=== PATIENT | female | born 1945 | race Caucasian/White ===

== ENCOUNTER 2019-04-09 08:59 | Outpatient (CLI) | payer MEDICARE, MEDICAID, SELFPAY ==
--- NOTE | 2019-04-09 09:07 | USCV_ITS ---
Ayah Sanchez Age: 73 Gender: F : 1945 Exam Date: 04/09/2019 09:13 Ordering Phys: Ilan Whitaker MD (Andy) ([email or web address] [place]) Technologist: Staci Scanlon [place] [facility] [place]: CCA STENOSIS Risk Factors: None Previous Vascular Surgery: R CEA Right Brachial BP: / Left Brachial BP: / Right Left Velocity (cm/s) Spectral Plaque Velocity (cm/s) Spectral Plaque Syst/Diast Broadening Syst/Diast Broadening 60.60/ 12.10 Prox CCA 54.50 / 9.60 67.30/ 13.20 Mid CCA 73.70 / 17.60 89.30/ 12.10 Distal CCA 133.60/ 27.80 Hetro 66.20/ 15.40 Prox ICA 198.90/ 27.70 Hetro 93.70/ 17.60 Mid ICA 160.20/ 20.30 Homo 71.20/ 20.90 Distal ICA 92.20 / 19.60 105.80 ECA 100.20 1.05 ICA/CCA 1.49 Antegrade Vertebral Bi- directiona l 55.90/ 16.80 cm/s 58.70/ 18.20 cm/s Bi Subclavian Tri 98.50 198.4 0 FINDINGS Atherosclerotic change of the left internal carotid artery. CONCLUSIONS 60-69% stenosis of the origin of the left internal carotid artery. No significant stenoisis of the right internal carotid artery. No siginificatnt change compared to previous study of 10/04/2018. Dr. Krissy Noguera MD (Electronically Signed) Final Date: 09 April 2019 10:52 S
== END 2019-04-09 09:00 | disposition home or self-care (01) ==
LOC: US 09:02
PROVIDERS: PCP Family Medicine; Visit Provider Thoracic Surgery (Cardiothoracic Vascular Surgery)
DX: I65.23 Occlusion and stenosis of bilateral carotid arteries (principal)
CPT/HCPCS: 93880

== ENCOUNTER 2020-06-23 17:21 | Emergency (ER) | payer MEDICARE, MEDICAID, SELFPAY ==
[2020-06-23 18:16] VITALS: BP 208/72; PULSE 73; RESP 18; TEMP 37.9; O2SAT 93; BMI 28.0
[2020-06-23 19:24] VITALS: BP 214/94; PULSE 74; RESP 16; O2SAT 92
[2020-06-23 19:49] LABS: Basophils # 0.1 10^3/uL (0.0-0.1); Basophils % 0.3 %; Eosinophils % 0.1 %; Hematocrit 42.6 % (37.0-47.0); Hemoglobin 13.9 g/dL (11.5-15.3); Lymphocytes # 1.2 10^3/uL (0.8-4.8); Lymphocytes % 8.2 %; Mean Corpuscular HGB Conc 32.6 g/dL (30.0-36.0); Mean Corpuscular Hemoglobin 30.6 pg (28.0-34.0); Mean Corpuscular Volume 93.8 fL (81-99); Mean Platelet Volume 10.5 fL (7.4-10.4); Monocytes # 1.5 10^3/uL (0.2-0.9); Monocytes % 9.8 %; Neutrophils # 12.11 10^3/uL (1.8-7.7); Neutrophils % 81.1 %; Nucleated Red Blood Cells % 0 %; Platelet Count 278 10^3/cmm (130-400); Red Blood Count 4.54 10^6/uL (4.1-5.3); Red Cell Distribution Width 13.1 % (12.1-15.1); White Blood Count 14.9 10^3/uL (4.0-10.0)
--- NOTE | 2020-06-23 19:49 | W.ED.ABDPA2 ---
HPI - Abdominal Pain General: Chief Complaint: Abdominal Pain Stated Complaint: AB PAIN Time Seen by Provider: 06/23/20 19:36 Source: patient Mode of arrival: ambulatory Limitations: no limitations History of Present Illness: HPI narrative: Patient is a 74-year-old female who presents to ED today with a complaint of pain around her right flank area that began around 7:30am this morning and woke her from sleep. She states she is concerned this could be a kidney stone or her gallbladder. She reports she feels mildly nauseous but has not had any episodes of vomiting. She is having normal bowel movements. She does not complain of dysuria, frequency, urgency. She does states she urinates in very small amounts but this is chronic. She has not been running fevers. She has no previous history of nephrolithiasis. Has not had any issues with her gallbladder previously. She denies chest pain, shortness of breath, difficulty breathing. MD elicited complaint: flank pain Pertinent past history: none Onset (ago): hour(s) Pain Consistency: constant Location: R flank Severity: severe Quality: stabbing and sharp Exacerbating factors: movement Relieving factors: nothing Associated Symptoms: Reports nausea; Denies change in stool character, chills, dysuria, fever(s), heartburn, hematuria, hematemesis, syncope and vomiting Review of Systems Const: Denies: fever(s), chills, body aches, fatigue or malaise Card: Denies: chest pain, palpitations, irregular heart rhythm, edema, lightheadedness, syncope or pre-syncope Resp: Denies: dyspnea GI: Reports: abdominal pain and nausea; Denies: vomiting, hematemesis, heartburn or change in stool character : Reports: flank pain; Denies: difficulty voiding, dysuria, urinary urgency or hematuria Neuro: Denies: headache(s) PFSH ED PFSH: Medical History Hyperlipidemia associated with type 2 diabetes mellitus Ventricular hypertrophy Family History Other Cancer Denies family history of Anesthesia complication Bleeding disorder Social History Smoking and tobacco status: current every day smoker Alcohol intake: never Physical Exam Const: COMMON NORMALS: average body habitus, patient oriented x3, no limitations, healthy appearing and alert GENERAL APPEARANCE: cooperative and in distress (in pain) ORIENTATION/CONSCIOUSNESS: Yes awake, Yes oriented to person, Yes oriented to place and Yes oriented to time HENMT: COMMON NORMALS: normocephalic and atraumatic HEAD & SCALP: normocephalic and atraumatic Resp: COMMON NORMALS: normal respiratory effort and clear to auscultation bilaterally AUSCULTATION: clear to auscultation bilaterally Cardio: COMMON NORMALS: regular rate and regular rhythm RATE: regular rate RHYTHM: regular rhythm GI: COMMON NORMALS: Normal to inspection, nondistended, normoactive bowel sounds present, Soft to palpation, non-tender and No hepatosplenomegaly present AUSCULTATION: Yes normoactive bowel sounds PALPATION: Yes Soft to palpation and Yes No hepatosplenomegaly present OTHER: pain pump present : BLADDER/KIDNEY EXAM: Yes CVA tenderness on the right Back/Pelvis: GENERAL BACK: Yes CVA tenderness Extremity: COMMON NORMALS: normal to inspection Neuro: COMMON NORMALS: patient oriented x3 SENSORIUM/ORIENTATION: Yes alert, Yes oriented to person, Yes oriented to place and Yes oriented to time Skin: COMMON NORMALS: no rashes or lesions noted GENERAL SKIN EXAM: no rashes or lesions noted Course ED course: Patient noted to desat to the 70-80s during her visit. She does not wear oxygen. 3-4L O2 via NC was placed and still could only get sats to 91%. Have tried to wean patient off this but again she desats. She does now tell me pain radiates from flank down to R lower chest. She has no localized RUQ pain. CXR shows some haziness to her RLL. CTA imaging does not show a PE and nothing obvious to R lung/chest although does have some atelectasis. She has non-specific findings of an enlarged pulmonary trunk, thickened left ventricle, and small descending thoracic aneurysmal dilatation. She states she does not feel short of breath. Vital Signs: Vital signs: Vital Signs Temperature 100.2 F H 06/23/20 18:16 Pulse Rate 65 06/23/20 23:33 Respiratory Rate 18 06/23/20 23:33 Blood Pressure 158/65 06/23/20 23:33 Pulse Oximetry 89 L 06/23/20 23:33 MDM - Abdominal Pain MDM Narrative: Medical decision making narrative: Patient is satting at 85-89% on room air. I have encouraged patient to come into the hospital for further evaluation of her pain and hypoxia but she refuses. She feels much better after toradol and dilaudid. CT of her abd/pelvis showed nothing acute. When I looked at CT scan I thought her R renal pelvis looked dilated but I agree with radiologist in that I did not visualize a stone. No hydroneprosis. UA shows hematuria without infection. She has a mild white count at 14.9 but procal and lactate are normal. Triage temp was 100.2 but this was rechecked and she was afebrile at 98.6. I will place patient on Levaquin which will cover for pulmonary/urologic pathogens as well as give her pain/nausea meds. She will sign out AMA as I have encouraged her to come into the hospital. Strict return to ED precautions given. Lab Data: Labs: Lab Results 06/23/20 06/23/20 06/23/20 Range/Units 19:30 19:45 19:45 WBC 14.9 H (4.0-10.0) 10^3/ uL RBC 4.54 (4.1-5.3) 10^6/u L Hgb 13.9 (11.5-15.3) g/dL Hct 42.6 (37.0-47.0) % MCV 93.8 (81-99) fL MCH 30.6 (28.0-34.0) pg MCHC 32.6 (30.0-36.0) g/dL RDW 13.1 (12.1-15.1) % Plt Count 278 (130-400) 10^3/c mm MPV 10.5 H (7.4-10.4) fL Neut % (Auto) 81.1 % Lymph % (Auto) 8.2 % Marinette % (Auto) 9.8 % Eos % (Auto) 0.1 % Baso % (Auto) 0.3 % Neut # (Auto) 12.11 H (1.8-7.7) 10^3/u L Lymph # (Auto) 1.2 (0.8-4.8) 10^3/u L Marinette # (Auto) 1.5 H (0.2-0.9) 10^3/u L Eos # (Auto) 0.0 (0.0-0.8) 10^3/u L Baso # (Auto) 0.1 (0.0-0.1) 10^3/u L Nucleated RBC % (a uto) 0 % Nucleated RBCs # 0.0 /100WBC Sodium 135 L (136-145) mmol/L Potassium 3.8 (3.5-5.1) mmol/L Chloride 98 (98-107) mmol/L Carbon Dioxide 27 (22-29) mmol/L Anion Gap 13.8 (5-19) BUN 9 (8-23) mg/dL Creatinine 0.7 (0.5-0.9) mg/dL GFR Calculation Not Reportable Glucose 118 H (65-115) mg/dL Calculated Osmolal ity 280 L (285-295) mOsm/k g Lactic Acid (0.5-2.2) mmol/L Calcium 9.4 (8.5-10.5) mg/dL Total Bilirubin 1.0 (0.15-1.2) mg/dL AST 10 (0-32) U/L ALT < 5 (0-33) U/L Alkaline Phosphata se 104 (35-105) IU/L Total Protein 7.1 (6.6-8.7) g/dL Albumin 4.0 (3.5-5.2) g/dL Globulin 3.1 (1.3-4.6) g/dL Lipase 13 (13-60) U/L Procalcitonin (0-0.5) ng/mL Urine Color Yellow (Yellow) Urine Appearance Clear (CLEAR) Urine pH 7 (5-7) Ur Specific Gravit y 1.005 (1.005-1.030) Urine Protein Neg (Negative) Urine Glucose (UA) Norm (Normal) Urine Ketones Negative (Negative) Urine Blood 2+ H (Negative) Urine Nitrate Negative (Negative) Urine Bilirubin Neg (Negative) Urine Urobilinogen Norm (Negative) mg/dL Ur Leukocyte Paty ase Negative (Negative) Urine RBC 10-15 H (0-2) /hpf Urine WBC None (0-5) /hpf Ur Squamous Epith Cells 0-4 H (0-5) /hpf Amorphous Sediment Not Reportable Urine Bacteria None (NONE) /hpf SARS-CoV-2 Ag (Rap id) (Negative) 06/23/20 06/23/20 06/23/20 Range/Units 19:45 19:45 22:01 WBC (4.0-10.0) 10^3/ uL RBC (4.1-5.3) 10^6/u L Hgb (11.5-15.3) g/dL Hct (37.0-47.0) % MCV (81-99) fL MCH (28.0-34.0) pg MCHC (30.0-36.0) g/dL RDW (12.1-15.1) % Plt Count (130-400) 10^3/c mm MPV (7.4-10.4) fL Neut % (Auto) % Lymph % (Auto) % Marinette % (Auto) % Eos % (Auto) % Baso % (Auto) % Neut # (Auto) (1.8-7.7) 10^3/u L Lymph # (Auto) (0.8-4.8) 10^3/u L Marinette # (Auto) (0.2-0.9) 10^3/u L Eos # (Auto) (0.0-0.8) 10^3/u L Baso # (Auto) (0.0-0.1) 10^3/u L Nucleated RBC % (a uto) % Nucleated RBCs # /100WBC Sodium (136-145) mmol/L Potassium (3.5-5.1) mmol/L Chloride (98-107) mmol/L Carbon Dioxide (22-29) mmol/L Anion Gap (5-19) BUN (8-23) mg/dL Creatinine (0.5-0.9) mg/dL GFR Calculation Glucose (65-115) mg/dL Calculated Osmolal ity (285-295) mOsm/k g Lactic Acid 1.1 (0.5-2.2) mmol/L Calcium (8.5-10.5) mg/dL Total Bilirubin (0.15-1.2) mg/dL AST (0-32) U/L ALT (0-33) U/L Alkaline Phosphata se (35-105) IU/L Total Protein (6.6-8.7) g/dL Albumin (3.5-5.2) g/dL Globulin (1.3-4.6) g/dL Lipase (13-60) U/L Procalcitonin 0.10 (0-0.5) ng/mL Urine Color (Yellow) Urine Appearance (CLEAR) Urine pH (5-7) Ur Specific Gravit y (1.005-1.030) Urine Protein (Negative) Urine Glucose (UA) (Normal) Urine Ketones (Negative) Urine Blood (Negative) Urine Nitrate (Negative) Urine Bilirubin (Negative) Urine Urobilinogen (Negative) mg/dL Ur Leukocyte Paty ase (Negative) Urine RBC (0-2) /hpf Urine WBC (0-5) /hpf Ur Squamous Epith Cells (0-5) /hpf Amorphous Sediment Urine Bacteria (NONE) /hpf SARS-CoV-2 Ag (Rap id) Negative (Negative) Imaging Data ^: CT Abd/Pel: Radiologist's impression: [place] [address] CT Scan Report Signed Patient: Ayah Sanchez Unit #: [id number] : 1945 Age/Sex: 74 / F ADM Date: 06/23/20 Loc: ER Room/Bed: Attending Dr: Ordering Provider/Ordering MD: Yuli Morrow Date of Service: 06/23/20 Procedure(s): CT kidney stone 45412 Accession Number(s): [id number] Report Number: [id number] PROCEDURE INFORMATION: Exam: CT Abdomen And Pelvis Without Contrast Exam date and time: 06/23/2020 8:13 PM Age: 74 years old Clinical indication: Abdominal pain; Right; Prior surgery; Surgery type: Pain pump, appy, hyst; Patient HX: R flank pain, nausea, diarrhea TECHNIQUE: Imaging protocol: Computed tomography of the abdomen and pelvis without contrast. Radiation optimization: All CT scans at this facility use at least one of these dose optimization techniques: automated exposure control; mA and/or kV adjustment per patient size (includes targeted exams where dose is matched to clinical indication); or iterative reconstruction. COMPARISON: CT abdomen pelvis wo con [id number] 08/25/2016 10:14 AM RADIATION DOSE METRICS: Total DLP (mGy-cm): 854.41 FINDINGS: Lungs: Bibasilar atelectasis, greater on the right. Liver: Normal size and density. No focal mass. Gallbladder and bile ducts: No intrahepatic or extrahepatic biliary dilitation. No calcified stones. Pancreas: No evidence of mass. No ductal dilation. Spleen: No splenomegaly or mass. Adrenal glands: Normal. Kidneys and ureters: No stones or hydronephrosis. No evidence of focal mass. Stomach and bowel: Scattered diverticula throughout the colon. No signs of acute diverticulitis. No focal bowel wall thickening or mass. No signs of obstruction. Appendix: No evidence of appendicitis. Intraperitoneal space: No free air. No free fluid or evidence of abscess. Vasculature: The descending thoracic aorta measures up to 3.3 cm at the hiatus. Scattered calcifications throughout the abdominal aorta and its major branches. Lymph nodes: No lymphadenopathy. Urinary bladder: Normal CT appearance. Reproductive: Normal CT appearance for age. Bones/joints: The bones appear demineralized. No acute osseous abnormality. Epidural catheter noted. Soft tissues: Small fat containing inguinal hernias. CT/CT kidney stone [id number] IMPRESSION: 1. No urinary tract stones. No hydronephrosis or hydroureter. 2. Bibasilar atelectasis, greater on the right. 3. Scattered diverticulosis without signs of acute diverticulitis. 4. Slight interval enlargement of the diameter of the distal descending thoracic aorta now measuring 3.3 cm compared to 2.[address] abdomen pelvis. Radiation Dose CTDIVOL = (mGy): DLP = 854.41 (mGy-cm) Dictated By: Fitz Gipson Signed By: Fitz Gipson Signed Date/Time: 06/23/202101 DD/ 00 CTA Chest: Radiologist's impression: [facility] [address] [place] [address] CT Scan Report Signed Patient: Ayah Sanchez Unit #: [id number] : 1945 Age/Sex: 74 / F ADM Date: 06/23/20 Loc: ER Room/Bed: Attending Dr: Ordering Provider/Ordering MD: Yuli Morrow Date of Service: 06/23/20 Procedure(s): CT angio chest PE protcl [id number] Accession Number(s): [id number] Report Number: [id number] PROCEDURE INFORMATION: Exam: CTA Chest With Contrast Exam date and time: 06/23/2020 10:01 PM Age: 74 years old Clinical indication: Angina and shortness of breath; Additional info: R sided pain; Hypoxia TECHNIQUE: Imaging protocol: Computed tomographic angiography of the chest with contrast. 3D rendering (Not supervised by radiologist): MIP and/or 3D reconstructed images were created by the technologist. Radiation optimization: All CT scans at this facility use at least one of these dose optimization techniques: automated exposure control; mA and/or kV adjustment per patient size (includes targeted exams where dose is matched to clinical indication); or iterative reconstruction. Contrast material: OMNI 350; Contrast volume: 56 ml; Contrast route: INTRAVENOUS (IV); COMPARISON: CT chest wo [facility] [id number] 09/21/2016 2:27 PM RADIATION DOSE METRICS: Total DLP (mGy-cm): 463.15 FINDINGS: Pulmonary arteries: No filling defects in the pulmonary arteries. The pulmonary trunk is enlarged at 3.6 cm. Aorta: Scattered hard and soft plaque throughout the thoracic aorta. The distal descending thoracic aorta is slightly aneurysmal at 3.3 cm in diameter. Lungs: Adjacent to the mid descending thoracic aorta in the left lower lobe is a low-density 2.7 x 2.2 x 2 cm (SAT) low-density nodule with some peripheral vascularity. This shows slight interval enlargement compared to the exam of 2017. Given its minimal change coordinator time this is likely a benign finding and may reflect a noncalcified granuloma. Mild bibasilar atelectasis, greater on the right. Pleural spaces: Small right pleural effusion. Heart: The left ventricle appears thickened. No evidence of right heart strain. Trace pericardial effusion. Several coronary artery calcifications noted. Lymph nodes: No enlarged lymph nodes. Bones/joints: No acute fracture. Soft tissues: Within normal limits. CT/CT angio chest PE protcl [id number] IMPRESSION: 1. No pulmonary embolus. 2. Nonspecific enlargement of the pulmonary trunk. 3. The left ventricle appears diffusely thickened. Consider follow-up with echocardiogram. 4. 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 5. Mild bibasilar atelectasis, greater on the right. Small right pleural effusion. Radiation Dose CTDIVOL = (mGy): DLP = 463.15 (mGy-cm) Dictated By: Fitz Gipson Signed By: Fitz Gipson Signed Date/Time: 06/23/202248 DD/ 46 Discharge Plan Discharge Patient Disposition: Left Against Medical Advice Clinical Impression: Acute right flank pain, Hypoxia Condition: Stable Prescriptions: New hydrocodone-acetaminophen 5-325 mg tablet 1 tab PO Q4H PRN (Reason: pain) Qty: 14 RF: 0 Zofran 4 mg tablet 4 mg PO Q6H PRN (Reason: nausea and vomiting) Qty: 14 RF: 0 levofloxacin 500 mg tablet 500 mg PO DAILY 7 Days Qty: 7 RF: 0 No Action benazepril-hydrochlorothiazide 5-6.25 mg tablet 1 tab PO DAILY RF: 0 morphine IV RF: 0 pravastatin 80 mg tablet 80 mg PO DAILY PRNRF: 0 Referrals: Steven Barrera MD [Primary Care Provider] - Patient Instructions: Abdominal Pain (ED), Opioid Safety Activity Restrictions/Additional Instructions: [facility] epidemic. We are providing ALL patients with information regarding opiate safety. If you received opiate pain medication during your stay or if you received a prescription for opiate pain medication-please review this handout. If not, you may disregard. Thank you. As discussed because of your oxygen saturation readings in the 80s I have requested that you stay in the hospital for further evaluation but you have refused and would like to go home. I will place you on antibiotics, pain meds, nausea meds. Please follow-up with primary care as soon as possible. If you begin developing shortness of breath or chest pain or worsening flank pain, fevers, or any other concerns you may have please return to the emergency department immediately. Coding Level of Care Code ED Attorney for Veronica Perkins Exam Comprehensive
[2020-06-23 20:00] LABS: Add Urine Microscopic? YES; Bilirubin Urine Neg (Negative); Blood Urine 2+ (Negative); Glucose Urine UA Norm (Normal); Ketones Urine Negative (Negative); Leukocyte Esterase Urine Negative (Negative); Nitrate Urine Negative (Negative); Protein Urine Neg (Negative); Specific Gravity, Urine 1.005 (1.005-1.030); Urine Appearance Clear (CLEAR); Urine Color Yellow (Yellow); Urobilinogen Urine Norm (Negative); pH Urine 7 (5-7)
[2020-06-23 20:01] LABS: Add Urine Culture? No; Squamous Epithelial Cell Urine 0-4 /hpf (0-5)
--- NOTE | 2020-06-23 20:03 | CTR_ITS ---
PROCEDURE INFORMATION: Exam: CT Abdomen And Pelvis Without Contrast Exam date and time: 06/23/2020 8:13 PM Age: 74 years old Clinical indication: Abdominal pain; Right; Prior surgery; Surgery type: Pain pump, appy, hyst; Patient HX: R flank pain, nausea, diarrhea TECHNIQUE: Imaging protocol: Computed tomography of the abdomen and pelvis without contrast. Radiation optimization: All CT scans at this facility use at least one of these dose optimization techniques: automated exposure control; mA and/or kV adjustment per patient size (includes targeted exams where dose is matched to clinical indication); or iterative reconstruction. COMPARISON: CT abdomen pelvis wo con [id number] 08/25/2016 10:14 AM RADIATION DOSE METRICS: Total DLP (mGy-cm): 854.41 FINDINGS: Lungs: Bibasilar atelectasis, greater on the right. Liver: Normal size and density. No focal mass. Gallbladder and bile ducts: No intrahepatic or extrahepatic biliary dilitation. No calcified stones. Pancreas: No evidence of mass. No ductal dilation. Spleen: No splenomegaly or mass. Adrenal glands: Normal. Kidneys and ureters: No stones or hydronephrosis. No evidence of focal mass. Stomach and bowel: Scattered diverticula throughout the colon. No signs of acute diverticulitis. No focal bowel wall thickening or mass. No signs of obstruction. Appendix: No evidence of appendicitis. Intraperitoneal space: No free air. No free fluid or evidence of abscess. Vasculature: The descending thoracic aorta measures up to 3.3 cm at the hiatus. Scattered calcifications throughout the abdominal aorta and its major branches. Lymph nodes: No lymphadenopathy. Urinary bladder: Normal CT appearance. Reproductive: Normal CT appearance for age. Bones/joints: The bones appear demineralized. No acute osseous abnormality. Epidural catheter noted. Soft tissues: Small fat containing inguinal hernias. CT/CT kidney stone [id number] IMPRESSION: 1. No urinary tract stones. No hydronephrosis or hydroureter. 2. Bibasilar atelectasis, greater on the right. 3. Scattered diverticulosis without signs of acute diverticulitis. 4. Slight interval enlargement of the diameter of the distal descending thoracic aorta now measuring 3.3 cm compared to 2.9 cm [address] abdomen pelvis. Radiation Dose CTDIVOL = (mGy): DLP = 854.41 (mGy-cm)
[2020-06-23] MEDS: ondansetron 2 mg/ML SDV 2 mL 4 MG IVP (20:04)
[2020-06-23] MEDS: sodium chloride 0.9% 1,000 ML 999 ML IV (20:04)
[2020-06-23 20:05] LABS: Alanine Aminotransferase < 5 U/L (0-33); Alkaline Phosphatase 104 IU/L (35-105); Anion Gap 13.8 (5-19); Aspartate Amino Transferase 10 U/L (0-32); Blood Urea Nitrogen 9 mg/dL (8-23); Calcium 9.4 mg/dL (8.5-10.5); Carbon Dioxide 27 mmol/L (22-29); Chloride 98 mmol/L (98-107); Globulin 3.1 g/dL (1.3-4.6); Glucose 118 mg/dL (65-115); Lipase 13 U/L (13-60); Osmolality Calculated 280 mOsm/kg (285-295); Potassium 3.8 mmol/L (3.5-5.1); Sodium 135 mmol/L (136-145); Total Protein 7.1 g/dL (6.6-8.7)
[2020-06-23 20:06] LABS: Lactic Sepsis W/Reflex 1.1 mmol/L (0.5-2.2)
--- NOTE | 2020-06-23 21:19 | XR_ITS ---
WS: [id number] Portable AP upright chest, 06/23/2020 Clinical Data: chest pain Comparison: PA and lateral chest, 12/25/2017. Findings: No nodules, masses or effusions are seen. The heart is enlarged. The pulmonary vascularity is not increased. No pneumonia or pneumothorax is seen. There is atelectatic foreign exchange trader the surface of both diaphragms with a poor inspiration. The aortic arch and descending aorta show tortuosity. XR/XR chest 1V portable [id number] Impression: Cardiomegaly, atherosclerosis and bilateral lower lobe atelectasis.
[2020-06-23] MEDS: ketorolac 30 mg/mL INJ 15 MG IVP (21:46)
[2020-06-23 21:47] VITALS: BP 188/79; RESP 16; RESP 19; O2SAT 94
[2020-06-23] MEDS: HYDROmorphone 1 mg/mL INJ 1 mL 0.5 MG IVP (21:47)
[2020-06-23 21:48] VITALS: BP 188/79; PULSE 72; RESP 19; O2SAT 94
--- NOTE | 2020-06-23 21:57 | CTR_ITS ---
PROCEDURE INFORMATION: Exam: CTA Chest With Contrast Exam date and time: 06/23/2020 10:01 PM Age: 74 years old Clinical indication: Angina and shortness of breath; Additional info: R sided pain; Hypoxia TECHNIQUE: Imaging protocol: Computed tomographic angiography of the chest with contrast. 3D rendering (Not supervised by radiologist): MIP and/or 3D reconstructed images were created by the technologist. Radiation optimization: All CT scans at this facility use at least one of these dose optimization techniques: automated exposure control; mA and/or kV adjustment per patient size (includes targeted exams where dose is matched to clinical indication); or iterative reconstruction. Contrast material: OMNI 350; Contrast volume: 56 ml; Contrast route: INTRAVENOUS (IV); COMPARISON: CT chest wo con [id number] 09/21/2016 2:27 PM RADIATION DOSE METRICS: Total DLP (mGy-cm): 463.15 FINDINGS: Pulmonary arteries: No filling defects in the pulmonary arteries. The pulmonary trunk is enlarged at 3.6 cm. Aorta: Scattered hard and soft plaque throughout the thoracic aorta. The distal descending thoracic aorta is slightly aneurysmal at 3.3 cm in diameter. Lungs: Adjacent to the mid descending thoracic aorta in the left lower lobe is a low-density 2.7 x 2.2 x 2 cm (SAT) low-density nodule with some peripheral vascularity. This shows slight interval enlargement compared to the exam of 2017. Given its minimal pattern changer time this is likely a benign finding and may reflect a noncalcified granuloma. Mild bibasilar atelectasis, greater on the right. Pleural spaces: Small right pleural effusion. Heart: The left ventricle appears thickened. No evidence of right heart strain. Trace pericardial effusion. Several coronary artery calcifications noted. Lymph nodes: No enlarged lymph nodes. Bones/joints: No acute fracture. Soft tissues: Within normal limits. CT/CT angio chest PE protcl [id number] IMPRESSION: 1. No pulmonary embolus. 2. Nonspecific enlargement of the pulmonary trunk. 3. The left ventricle appears diffusely thickened. Consider follow-up with echocardiogram. 4. 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 5. Mild bibasilar atelectasis, greater on the right. Small right pleural effusion. Radiation Dose CTDIVOL = (mGy): DLP = 463.15 (mGy-cm)
[2020-06-23] MEDS: iohexol 350 mg/mL 100 mL Btl IV (22:12)
[2020-06-23 22:39] LABS: SARS Covid-2 Antigen Negative (Negative)
[2020-06-23 23:33] VITALS: BP 158/65; PULSE 65; RESP 18; O2SAT 89
== END 2020-06-23 23:35 | disposition left against medical advice (07) ==
PROVIDERS: Emergency Provider Physician Assistant; PCP Family Medicine
DX: R10.9 Unspecified abdominal pain (principal); R09.02 Hypoxemia; Z53.21 Procedure and treatment not carried out due to patient leaving prior to being seen by health care provider; E11.9 Type 2 diabetes mellitus without complications; E78.5 Hyperlipidemia, unspecified; F17.210 Nicotine dependence, cigarettes, uncomplicated
CPT/HCPCS: 71045; 71275; 74176; 80053; 81001; 83605; 83690; 84145; 85025; 87426; 96361; 96374; 96375; 99284; J1170; J1885; J2405; J7030; Q9967

== ENCOUNTER 2020-08-20 13:05 | Outpatient (CLI) | payer MEDICARE, MEDICAID, SELFPAY ==
--- NOTE | 2020-08-20 13:10 | XR_ITS ---
WS: [id number] LEFT SHOULDER: 3 VIEW(S) TECHNIQUE: Internal and external rotation with Y view. HISTORY: PARESTHESIAS IN LEFT HAND COMPARISON: None available. No fracture or dislocation or soft tissue abnormality. 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 No fractures or bone destruction. Mild atherosclerosis aorta. 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
--- NOTE | 2020-08-20 13:10 | XR_ITS ---
WS: [id number] THORACIC SPINE TECHNIQUE: AP and lateral views are performed. HISTORY: PARESTHESIAS IN LEFT HAND COMPARISON: 08/10/2016 Osteopenia. Marked increase in thoracic kyphosis. Mild S-shaped curvature thoracic spine. No definite fractures are identified. Disc spaces are mildly narrowed throughout. There is a dorsal column stimu lator wire projecting over the lower thoracic spine. Heavy calcifications are noted in the mediastinu m. XR/XR thoracic spine 2V [id number] IMPRESSION: 1. Osteopenia. 2. No fracture. 3. Marked increase in thoracic kyphosis.
--- NOTE | 2020-08-20 13:10 | XR_ITS ---
WS: [id number] CERVICAL SPINE 5 VIEWS HISTORY: PARESTHESIAS IN LEFT HAND COMPARISON: None available. Lateral cervical in neutral, flexion and extension and AP views. Mild LEFT curvature cervical spine. Posterior alignment is normal. Small hypertrophic osteophytes at C5 and C6. No fractures. Facet joint arthritis is also present from C4 to C6. Soft tissue sutures are present anterior to the cervical spine and in the RIGHT neck. Lateral masses are aligned. The odonto id is incompletely visualized. No cervical spine instability. XR/XR cervical spine 4-5V [id number] IMPRESSION: 1. No cervical spine instability. 2. Mild LEFT curvature cervical spine and facet joint arthritis.
== END 2020-08-20 13:06 | disposition home or self-care (01) ==
PROVIDERS: PCP Family Medicine; Visit Provider Clinical Nurse Specialist Adult Health
DX: R20.2 Paresthesia of skin (principal); M85.88 Other specified disorders of bone density and structure, other site; M40.204 Unspecified kyphosis, thoracic region; M13.812 Other specified arthritis, left shoulder
CPT/HCPCS: 72050; 72070; 73030

== ENCOUNTER → 2020-09-03 15:23 | Outpatient (BNVA) | payer MEDICARE, MEDICAID, SELFPAY | PROVIDERS: PCP Family Medicine; Visit Provider Clinical Nurse Specialist Adult Health | DX: Z01.812 Encounter for preprocedural laboratory examination (principal); Z20.822 Contact with and (suspected) exposure to COVID-19 | CPT/HCPCS: 87635 ==

== ENCOUNTER 2020-09-08 12:36 | Outpatient (CLI) | payer MEDICARE, MEDICAID, SELFPAY ==
--- NOTE | 2020-09-08 13:27 | PFTS_ITS ---
Date of Study:09/08/20 Date of Dictation: 09/11/2020 MECHANICS: Forced vital capacity (FVC) is reduced Forced expiratory volume in one second (FEV1) is moderately reduced 69% FEV1/FVC is reduced. Postbronchodilator study not performed FLOW VOLUME LOOP: sloping of expiratory limb suggestive of air way obsrtruction LUNG VOLUMES: Total lung capacity (TLC) is normal. Residual volume (RV) is normal. DIFFUSING CAPACITY FOR CARBON MONOXIDE: Moderately reduced 52 % . INTERPRETATION: The prebronchodilator spirometry suggestive moderate obstructive ventilatory defect. Lung volumes are normal. There is no postbronchodilator study to check for airway responsiveness. There is moderate gas transfer defect 52% . Overall consistent with COPD and more likely emphysema. . Clinical correlation recommended. MTDD
== END 2020-09-08 12:37 | disposition home or self-care (01) ==
LOC: RT 12:41
PROVIDERS: PCP Family Medicine; Visit Provider Clinical Nurse Specialist Adult Health
DX: J44.9 Chronic obstructive pulmonary disease, unspecified (principal)
CPT/HCPCS: 94010; 94726; 94729

== ENCOUNTER → 2020-10-01 11:27 | Outpatient (BNVA) | payer MEDICARE, MEDICAID, SELFPAY | PROVIDERS: PCP Family Medicine; Visit Provider Specialist | DX: G90.50 Complex regional pain syndrome I, unspecified (principal); F17.200 Nicotine dependence, unspecified, uncomplicated | CPT/HCPCS: 62367; 99202 ==

== ENCOUNTER 2020-12-15 10:09 | Outpatient (CLI) | payer MEDICARE, MEDICAID, SELFPAY ==
--- NOTE | 2020-12-15 10:15 | USCV_ITS ---
Ayah Sanchez Age: 74 Gender: F : 1945 Exam Date: 12/15/2020 10:43 Ordering Phys: Long Messina MD ([email or web address]) Technologist: Patience Bolivar Exam Location: [facility] – [place], [place] Indication: RT CEA, EVAL FOR STENOSIS Risk Factors: Previous Vascular Surgery: Right Brachial BP: / Left Brachial BP: / Right Left Velocity (cm/s) Spectral Plaque Velocity (cm/s) Spectral Plaque Syst/Diast Broadening Syst/Diast Broadening 90.60/ 18.80 Prox CCA 65.30 / 11.80 92.30/ 20.50 Mid CCA 70.90 / 9.40 72.60/ 13.70 Distal CCA 78.60 / 18.80 63.30/ 13.40 Prox ICA 210.00/ 41.50 70.00/ 17.10 Mid ICA 73.50 / 22.00 68.30/ 14.30 Distal ICA 60.00 / 21.70 125.00 ECA 268.60 0.76 ICA/CCA 2.67 Antegrade Vertebral Antegrade 64.10/ 13.70 cm/s 64.90/ 26.50 cm/s Tri Subclavian Tri 165.6 135.4 0 0 FINDINGS Comparison:. 04/09/19 Diffuse bilateral scattered calcified plaque and intimal thickening throughout the common carotid arteries and extending through the bifurcation. Tortuous carotid arteies. Bilateral antegrade vertebral arteries. CONCLUSIONS No interval change in stenosis since prior exam. Left ICA stenosis 50-69%. Right ICA stenosis < 50%. Dr. Cnythia Peters DO (Electronically Signed) Final Date: 15 December 2020 11:38 S
== END 2020-12-15 10:10 | disposition home or self-care (01) ==
LOC: RAD 10:15
PROVIDERS: PCP Family Medicine; Visit Provider Internal Medicine Cardiovascular Disease
DX: I65.23 Occlusion and stenosis of bilateral carotid arteries (principal)
CPT/HCPCS: 93880

== ENCOUNTER 2021-06-09 12:06 | Outpatient (CLI) | payer MEDICARE, MEDICAID, SELFPAY ==
--- NOTE | 2021-06-09 12:23 | USCV_ITS ---
Ayah Sanchez Age: 75 Gender: F : 1945 Exam Date: 06/09/2021 12:53 Ordering Phys: Steven Barrera MD Technologist: Exam Location: [facility] [place] Indication: chest pain BP: 143 / 80 HR: 64 Rhythm: Sinus Technical Quality: Adequate MEASUREMENTS (Male / Female) Normal Values 2D ECHO LV Diastolic Diameter PLAX 5.1 cm 4.2 - 5.9 / 3.9 - 5.3 cm LV Systolic Diameter PLAX 3.4 cm IVS Diastolic Thickness 1.7 cm 0.6 - 1.0 / 0.6 - 0.9 cm IVS Systolic Thickness 2.0 cm LVPW Diastolic Thickness 1.1 cm 0.6 - 1.0 / 0.6 - 0.9 cm LVPW Systolic Thickness 1.3 cm LVOT Diameter 2.0 cm LV Ejection Fraction 2D Teich 58.9 % LA Diameter 4.0 cm M-MODE Aortic Annulus Diameter 3.2 cm LA Ao Ratio MM 1.5 MV E Point Septal Separation 1.3 cm DOPPLER AV Peak Velocity 180.0 cm/s LVOT Peak Velocity 131.0 cm/s AV Area Cont Eq vti 2.2 cm squared AV Area Cont Eq pk 2.3 cm squared MV Area PHT 5.0 cm squared Mitral E to A Ratio 1.0 MV E' Velocity 37.0 cm/s Mitral E to MV E' Ratio 9.5 Mitral E to LV E' Lateral Ratio 9.5 Mitral E to LV E' Septal Ratio 9.5 TR Peak Velocity 198.7 cm/s TR Peak Gradient 15.8 mmHg PV Peak Velocity 147.0 cm/s FINDINGS Left Ventricle Normal left ventricular size, systolic function and wall thickness, with no regional wall motion abnormalities. Left ventricular ejection fraction is estimated at 60 %. Grade I/IV diastolic dysfunction (abnormal relaxation filling pattern), normal to mildly elevated filling pressures. Right Ventricle Normal right ventricular size and systolic function. Right Atrium Mildly increased right atrial size. Left Atrium Mildly increased left atrial size. Mitral Valve Structurally normal mitral valve. No mitral valve stenosis. No mitral valve regurgitation. Aortic Valve Mild aortic valve calcification. Aortic valve sclerosis without stenosis or regurgitation. Tricuspid Valve Structurally normal tricuspid valve. No tricuspid valve regurgitation. Pulmonic Valve Pulmonic valve not well visualized. Mild pulmonary valve regurgitation. Pericardium Normal pericardium without effusion. Aorta Normal ascending aorta dimension. CONCLUSIONS Normal left ventricular size, systolic function and wall thickness, with no regional wall motion abnormalities. Left ventricular ejection fraction is estimated at 60 %. Grade I/IV diastolic dysfunction (abnormal relaxation filling pattern), normal to mildly elevated filling pressures. Mildly increased right atrial size. Mildly increased left atrial size. Dr. Eliel Velarde MD (Electronically Signed) Final Date: 09 June 2021 17:55 S
--- NOTE | 2021-06-09 12:33 | CT_ITS ---
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 Coronal and sagittal reformats are submitted. All CT scans at [facility] use at least one of these dose optimization techniques: automated exposure control; mA and/or kV adjustment per patient size (includes targeted exams where dose is matched to clinical indication); or iterative reconstruction. CONTRAST: Omnipaque 300; 95 mL IV. DLP: 581.78 mGy.cm COMPARISON: 06/23/2020 Lungs and central airway: Chronic emphysema. No mass or pneumonia. No pulmonary nodule. There is mild pleural thickening at the LEFT lung base. Pleura: No effusion. Mild pleural thickening at the LEFT base. Heart and pericardium: Mild enlargement of the LEFT heart chambers. Scattered coronary artery calcifi cations. Mediastinum and babak: Densely calcified subcarinal and RIGHT hilar lymph nodes. Vessels: Normal size thoracic aorta. Mild atherosclerotic plaque. Ascending aorta is 3.2 cm. Descendi ng aorta at the level of the trachea 2.7 cm. Tortuosity of the distal aorta with diameter 2.9 cm. Aga in noted is a solid nonenhancing nodule with wall calcification adjacent to the descending aorta. Thi s nodule measures 2.2 x 1.9 cm and has been stable since 2014. Pulmonary artery is enlarged at 4.0 cm . Origins of the great vessels are difficult to visualize as there is cardiac motion artifact. Chest wall and lower neck: No soft tissue masses. Upper abdomen: Atherosclerotic plaque continues into the suprarenal aorta. Noncalcified plaque at the thoracic inlet is similar to the prior studies. Origin of the celiac axis and SMA are difficult to v isualize. There is a small amount of thrombus present. Calcifications in the spleen. Osseous structures: Increase in thoracic kyphosis. Disc spaces are narrowed throughout. Vertebral bod y hemangiomas at T9 and T12. CT/CT chest w con* [id number] IMPRESSION: 1. No significant thoracic aortic aneurysm. Mild atherosclerotic plaque throug hout the thoracic aorta with extension into the suprarenal aorta. 2. Chronic emphysema. 3. Stable nonenhancing nodule adjacent to the distal thoracic aorta measuring 2.2 x 1.9 cm. No change since 2014. 4. Pulmonary hypertension.
[2021-06-09 13:10] LABS: Blood Urea Nitrogen 13 mg/dL (8-23)
[2021-06-09] MEDS: iohexol 300 mg/mL 100 mL Btl IV (13:31)
== END 2021-06-09 12:07 | disposition home or self-care (01) ==
LOC: RAD 12:09
PROVIDERS: Radiology Neuroradiology; PCP Family Medicine; Visit Provider Family Medicine
DX: I10 Essential (primary) hypertension (principal); I71.2 Thoracic aortic aneurysm, without rupture; I25.10 Atherosclerotic heart disease of native coronary artery without angina pectoris; J43.9 Emphysema, unspecified; I27.20 Pulmonary hypertension, unspecified
CPT/HCPCS: 71260; 82565; 84520; 93306

== ENCOUNTER → 2021-07-26 10:05 | Outpatient (BNVA) | payer MEDICARE, MEDICAID, SELFPAY | PROVIDERS: PCP Family Medicine; Visit Provider Internal Medicine Cardiovascular Disease | DX: I65.23 Occlusion and stenosis of bilateral carotid arteries (principal); E11.69 Type 2 diabetes mellitus with other specified complication; E78.5 Hyperlipidemia, unspecified; R53.83 Other fatigue; R01.1 Cardiac murmur, unspecified; F17.200 Nicotine dependence, unspecified, uncomplicated; I11.9 Hypertensive heart disease without heart failure | CPT/HCPCS: 93005; 99214; 99215 ==

== ENCOUNTER → 2021-11-15 16:08 | Outpatient (BNVA) | payer MEDICARE, MEDICAID, SELFPAY | PROVIDERS: PCP Family Medicine; Visit Provider Family Medicine | DX: I51.7 Cardiomegaly (principal); R01.1 Cardiac murmur, unspecified; R53.83 Other fatigue; Z76.89 Persons encountering health services in other specified circumstances; E11.69 Type 2 diabetes mellitus with other specified complication; E78.5 Hyperlipidemia, unspecified | CPT/HCPCS: 80053; 80061; 84443; 85025 ==

== ENCOUNTER 2021-12-07 11:15 | Outpatient (CLI) | payer MEDICARE, MEDICAID, SELFPAY ==
--- NOTE | 2021-12-07 11:15 | USCV_ITS ---
Ayah Sanchez Age: 75 Gender: F : 1945 Exam Date: 12/07/2021 11:31 Ordering Phys: Guicho Chavarria MD ([email or web address]) Technologist: Jace Prakash Exam Location: [facility] – [place] Indication: rt side endart lt side stenosis Risk Factors: Previous Vascular Surgery: Right Brachial BP: / Left Brachial BP: / Right Left Velocity (cm/s) Spectral Plaque Velocity (cm/s) Spectral Plaque Syst/Diast Broadening Syst/Diast Broadening 107.70/26.60 Prox CCA 60.00 / 10.30 98.00/ 21.00 Mid CCA 59.20 / 12.90 Hetro 102.20/23.80 Distal CCA 85.80 / 21.40 Marked Musa 67.20/ 16.80 Prox ICA 372.20/ 68.40 Marked Musa 88.20/ 25.20 Mid ICA 187.50/ 33.60 Marked Hetro 96.60/ 21.00 Distal ICA 145.50/ 29.40 88.20 ECA 81.00 0.90 ICA/CCA 4.34 Antegrade Vertebral Antegrade 89.20/ 10.30 cm/s 79.00/ 25.00 cm/s Bi Subclavian Tri 87.50 198.7 0 FINDINGS Mild to moderate plaques at the right bifurcation and internal carotid artery Moderate to heavy dense plaques of the left bifurcation and proximal internal carotid artery Antegrade flow in the vertebral arteries bilaterally Elevated velocity in the left subclavian artery CONCLUSIONS Moderate to heavy dense plaques at the left bifurcation and proximal internal carotid artery with velocity elevation, suggestive of greater than 70% stenosis. Mild to moderate plaques at the right bifurcation and internal carotid artery, suggesting less than 50% stenosis Elevated velocity in the left subclavian artery, could be related to tortuosity Compared to the study from 12/15/2020, the stenosis on the left side seems to be getting worse. Dr Guicho Chavarria MD [facility] (Electronically Signed) Final Date: 08 December 2021 20:48 S
== END 2021-12-07 11:16 | disposition home or self-care (01) ==
LOC: RAD 11:16
PROVIDERS: PCP Family Medicine; Visit Provider Internal Medicine Cardiovascular Disease
DX: I65.23 Occlusion and stenosis of bilateral carotid arteries (principal); I77.9 Disorder of arteries and arterioles, unspecified
CPT/HCPCS: 93880

== ENCOUNTER 2022-01-06 09:50 | Outpatient (CLI) | payer MEDICARE, MEDICAID, SELFPAY ==
--- NOTE | 2022-01-06 09:30 | CT_ITS ---
WS: [id number] CTA HEAD AND NECK TECHNIQUE: Contrast enhanced CTA of the head and neck with coronal and sagittal reformatted images an d maximum intensity projection (MIP) images. NASCET criteria utilized. CLINICAL INFORMATION: bilateral carotid occlusion COMPARISON: 2018 DLP: 951.[address] scans at [facility] use at least one of these dose optimization techniques: automated e xposure control; mA and/or kV adjustment per patient size (includes targeted exams where dose is matc hed to clinical indication); or iterative reconstruction. FINDINGS: No evidence of intracranial hemorrhage or mass effect. Mild small vessel changes. Moderate parenchymal volume loss. 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 Paranasal sinuses and mastoid air cells are well ae rated. Calcified RIGHT thyroid nodule measures 7 mm. Normal caliber partially visualized thoracic aorta. Tortuous RIGHT common carotid artery origins unch anged. 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 No fl ow-limiting stenosis. LEFT vertebral artery remains patent. This was likely present on the prior exam ination better visualized today. This extends to the LEFT vertebral artery origin which remains paten t. RIGHT: RIGHT common carotid artery is patent. No significant RIGHT ICA stenosis. RIGHT ICA is patent to the skull base. Postoperative changes RIGHT carotid endarterectomy new from previous. LEFT: LEFT common carotid artery is patent. Moderate calcified eccentric atheromatous plaque LEFT car otid bulb extending into the ICA. LEFT ICA stenosis measures 55%. Mild narrowing of the ECA origin. L EFT ICA is patent to the skull base. INTRACRANIAL CTA: LEFT dominant vertebral artery. Both vertebral arteries are patent. Proximal basilar artery is patent . Both ICAs are patent at the skull base. Normal vascularity to the CRYSTAL territory. Normal vascularity t o the MCA territory bilaterally. No flow-limiting stenosis or aneurysm. CT/CT angio headneck* [id number] IMPRESSION: 1. No significant RIGHT ICA stenosis. 2. LEFT proximal ICA stenosis measures approximately 55% 3. Unremarkable intracranial CTA. No flow-limiting intracranial stenosis or an eurysm. 4. Both vertebral arteries are patent. LEFT dominant vertebral artery. 5. 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 This is likely present on the prior examination but better visualized today.
[2022-01-06] MEDS: iohexol 350 mg/mL 100 mL Btl IV (10:20)
== END 2022-01-06 09:51 | disposition home or self-care (01) ==
LOC: RAD 09:51
PROVIDERS: PCP Family Medicine; Visit Provider Internal Medicine Cardiovascular Disease
DX: I65.23 Occlusion and stenosis of bilateral carotid arteries (principal)
CPT/HCPCS: 70496; 70498

== ENCOUNTER 2022-01-11 09:11 | Outpatient (CLI) | payer MEDICARE, MEDICAID, SELFPAY ==
[2022-01-11 09:16] VITALS: BMI 28.5
--- NOTE | 2022-01-11 09:40 | ECG_ITS ---
Test Date: 2022-01-11 Pat Name: Ayah Sanchez Department: Room: Gender: Female [employer] Author: : 1945 Requested By: Guicho Chavarria Order Number: [id number] Landon MD: Guicho Chavarria M.D. Interpretive Statements NAME OF STUDY: LEXISCAN SESTAMIBI STRESS TEST INDICATION: HTN, PROCEDURE: At the baseline, the EKG revealed regular rhythm, possibly sinus. Minimal voltage criteria for LVH. Because of baseline artifact, difficult to discern the rhythm. Diffuse nonspecific T wave changes. The baseline heart was 60 bpm with a blood pressue of 156/69 mm of Hg Lexiscan was infused over a period of 20 seconds. A total of 0.4 milligrams of Lexiscan was infused. The stress phase was continued for a total of 5 minutes. Heart rate at the end of the stress phase was 66bpm with a blood pressure 117/61 mm of Hg. The EKG at the peak infusion revealed no significant changes. Sestamibi was injected 20 seconds after the Lexiscan infusion. Heart rate at the end of the recovery phase was 64 bpm with a blood pressure of 117/60 mm of Hg. CONCLUSION: 1. No significant EKG changes with the LexiScan infusion 2. No LexiScan induced chest pain or cardiac arrhythmia 3. Normal blood pressure and heart rate response 4. Sestamibi/sestamibi perfusion scan pending; see separate report. Electronically Signed On 01-14-2022 8:57:06 SENIOR WEB SERVICES DEVELOPER by Guicho Chavarria M.D. [id number]
--- NOTE | 2022-01-11 09:41 | NMCV_ITS ---
NM floresita perf SPECT r/s* [id number] Ayah Sanchez Age: 76 Gender: F : 1945 Exam Date: 01/11/2022 09:41 Ordering Phys: Guicho Chavarria MD ([email or web address]) Technologist: HENRY Kam Exam Location: [facility] Indications: ESSENTIAL HYPERTENSION STRESS TEST Please see separate stress test report in [facility] for full findings IMAGE PROTOCOL Rest/Stress 1 Lexiscan Day Radiopharmaceutical Dose (mCi) Administration Site Administered by Rest: Tc-99m 10.2 IV HENRY Voss Sestamibi Stress:Tc-99m 32.1 IV HENRY Voss Sestamibi Rest: 11-Jan-2022 60 Discovery 630 Stress: 11-Jan-2022 30 Discovery 630 0.4mg Lexiscan. Supine position only as patient was unable to lay prone. SPECT RESULTS Technical Quality: Excellent Raw Data Analysis: Normal Image Corrections: No attenuation or motion correction applied Summed Stress Score: 4 Summed Rest Score: 6 Summed Difference Score: 1 PERFUSION FINDINGS Myocardial perfusion imaging revealing moderate area of slightly decreased tracer uptake in the basal and mid inferolateral, mid anterolateral, mid mid inferior regions. Subtle area of reversibility was noted in the mid inferior region. FUNCTIONAL RESULTS (calculated via Gated SPECT) Stress Image LV EF (%): 65 Stress EDV (mL):111 TID: 1.32 Stress ESV (mL):39 FUNCTIONAL FINDINGS: Some involvement analysis revealing moderate hypokinesia of the LV apex IMPRESSIONS 1. Myocardial perfusion imaging revealing small to moderate area of slightly decreased tracer uptake in the inferolateral, anterolateral and inferior regions with a subtle area of reversibility suggesting myocardial scarring with a very small area of ischemia. 2. Normal LV ejection fraction 65%. 3. LV wall motion analysis revealing hypokinetic LV apex 4. Normal LV volume 5. Elevated transient ischemic dilatation r atio, may suggest endocardial ischemia. Clinical correlation is recommended Dr Guicho Chavarria MD FACC (Electronically Signed) Final Date: 11 January 2022 14:33 S
[2022-01-11] MEDS: regadenoson 0.4 Mg/5 ml Syringe IVP (11:01)
[2022-01-11 11:20] VITALS: BP 117/60; PULSE 64
== END 2022-01-11 09:12 | disposition home or self-care (01) ==
LOC: CDL 09:15
PROVIDERS: PCP Family Medicine; Visit Provider Internal Medicine Cardiovascular Disease
DX: M79.602 Pain in left arm (principal); R53.83 Other fatigue
CPT/HCPCS: 78452; 93017; A9500; J2785

== ENCOUNTER → 2022-03-21 14:25 | Outpatient (BNVA) | payer MEDICARE, MEDICAID, SELFPAY | PROVIDERS: PCP Family Medicine; Visit Provider Family Medicine | DX: K21.9 Gastro-esophageal reflux disease without esophagitis (principal); D64.9 Anemia, unspecified; R53.82 Chronic fatigue, unspecified | CPT/HCPCS: 80053; 85025; 85651 ==

== ENCOUNTER → 2022-04-28 11:16 | Outpatient (BNVA) | payer MEDICARE, MEDICAID, SELFPAY | PROVIDERS: PCP Family Medicine; Visit Provider Family Medicine | DX: D64.9 Anemia, unspecified (principal) | CPT/HCPCS: 82728; 83540; 83550; 84466; 85014; 85018 ==

== ENCOUNTER 2022-05-20 14:04 | Emergency (ER) | payer MEDICARE, MEDICAID, SELFPAY ==
[2022-05-20] VITALS (9 sets, daily range): BP systolic 144–187; BP diastolic 51–78; PULSE 59–89; RESP 18–24; O2SAT 84–98; BMI 29.8
--- NOTE | 2022-05-20 14:22 | ECG_ITS ---
[facility] Test Date: 2022-05-20 Pat Name: Ayah Sanchez Department: Room: Gender: Female Accuracy Expert: : 1945 Requested By: Solomon Camacho Order Number: [id number] Reading MD: WILMER LARSEN Measurements Intervals [place] Rate: 60 P: 0 WA: 0 QRS: 71 QRSD: 87 T: 156 QT: 314 QTc: 314 Interpretive Statements SINUS RHYTHM WITH HIGH GRADE AV BLOCK LEFT VENTRICULAR HYPERTROPHY AND ST-T CHANGE [VOLTAGE CRITERIA PLUS ST/T ABNORMALITY] CRITICAL TEST RESULT Compared to ECG 08/25/2018 00:11:41 ST (T wave) deviation now present T-wave abnormality no longer present Possible ischemia no longer present Electronically Signed On 05-21-2022 23:37:47 CDT by WILMER LARSEN [id number]
--- NOTE | 2022-05-20 15:16 | ED_ITS ---
HPI - SOB/Dyspnea General: Chief Complaint: Shortness of Breath/Dyspnea Stated Complaint: chest pain/legs swelling Time Seen by Provider: 05/20/22 14:54 History of Present Illness: HPI Narrative: Ms Sanchez is a 76-year-old lady with significant past medical history of COPD and continued tobaccoism, no baseline oxygen requirement, history of diabetes and hyperlipidemia presenting to the emergency department for shortness of breath and chest discomfort. She reports onset of symptoms acutely approximately 9 days ago. She describes a sudden onset of her airway closing without known specific provoking factor. This lasted a short period of time however during that time she was unable to exhale or inhale. She tried to smoke approximately 1 hour later and coughed for roughly an hour. She has been unable to smoke since that time. She notes dyspnea on exertion as well as left anterior and right lateral chest discomfort starting last night. She also noticed lower extremity edema to the midcalf though this has mildly improved since last night. She noted a home pulse oximeter reading dropped to 70% after exertion which was associated with nausea, chest pain, presyncopal type feeling. Overall course of symptoms has worsened. No other specific changes in health, exacerbating, or alleviating factors identified. Onset (ago): day(s) Timing: progressively worsening Severity: severe Exacerbating factors: exertion Relieving factors: nothing Known history of: COPD Associated symptoms: Reports chest pain, cough, nausea and other Review of Systems General: Reports: 10 or more systems reviewed and unremarkable except in HPI and below Card: Reports: chest pain GI: Reports: nausea PFSH ED PFSH: Medical History Bilateral carotid artery stenosis Colon polyps Diverticulosis Hiatal hernia Hyperlipidemia associated with type 2 diabetes mellitus Presence of intrathecal pump Ventricular hypertrophy Surgical History H/O cataract extraction H/O: hysterectomy Hx of appendectomy Family History Mother CAD (coronary artery disease), Onset Age: 70 Cancer Dementia Sister Diabetes Denies family history of Clotting disorder Chronic kidney disease (CKD) Suicide Anesthesia complication Bleeding disorder Lung disease Stroke Social History Smoking and tobacco status: current every day smoker Alcohol intake: never Female Reproductive History: Spontaneous abortions: No Physical Exam Const: COMMON NORMALS: alert GENERAL APPEARANCE: cooperative and well developed HENMT: COMMON NORMALS: normocephalic and atraumatic HEAD & SCALP: normocephalic and atraumatic Eye: COMMON NORMALS: conjunctivae normal CONJUNCTIVA: Yes conjunctivae normal SCLERA: sclerae normal Neck/C-Spine: COMMON NORMALS: supple GENERAL: Yes trachea midline Resp: EFFORT & INSPECTION: Yes able to speak in complete sentences AUSCULTATION: diminished lung sounds Cardio: COMMON NORMALS: regular rate and regular rhythm RATE: regular rate RHYTHM: regular rhythm GI: COMMON NORMALS: Soft to palpation PALPATION: Yes Soft to palpation and No Tenderness to palpation present (GI) Extremity: GENERAL: Yes normal exam except as noted and No edema Neuro: COMMON NORMALS: moves all extremities SENSORIUM/ORIENTATION: Yes alert and No Orientation impaired Psych: COMMON NORMALS: mental status grossly normal and Normal thought process present THOUGHT PROCESS: Normal thought process present Course Vital Signs: Vital signs: Vital Signs Pulse Rate 66 05/20/22 20:32 Respiratory Rate 18 05/20/22 20:32 Blood Pressure 187/78 05/20/22 20:32 Pulse Oximetry 94 05/20/22 20:32 Oxygen Delivery Me thod 05/20/22 15:54 Oxygen Flow Rate 4 05/20/22 20:00 MDM - SOB/Dyspnea Medical Decision Making 76-year-old lady with underlying COPD and continued tobaccoism presenting for shortness of breath and bilateral lower extremity edema. She does note decreased amount of oxygen saturations at home especially with exertion. Patient is nontoxic on exam. EKG notable for sinus rhythm with normal axis and intervals, there is nonspecific ST segment abnormalities which may be secondary to LVH, no STEMI. Labs with no leukocytosis, mildly worse than baseline normocytic anemia without clear evidence of bleeding on exam or in history. No significant metabolic derangement. Negative range 2-hour delta troponin. BNP is mildly elevated. Negative COVID PCR testing. Chest x-ray demonstrates cardiomegaly with pulm vascular congestion, no evidence of lobar consolidation or pneumothorax. Patient treated with albuterol and steroids and feels significantly improved. She did receive EMS administered treatments prior to arrival as well. She is still requiring oxygen however. I recommended admission which the patient declined. I will order home oxygen as the patient qualifies. Plan to treat for COPD exacerbation and heart failure symptoms as well as refer for outpatient follow-up. The results of ED evaluation were discussed with the patient including prescriptions and/or symptomatic cares (if applicable) including appropriate and responsible use, followup plan, and return precautions. The patient verbalized understanding and felt safe for discharge. Medical Records I reviewed the patient's medical records. Lab Data I reviewed the patient's lab results. 05/20/22 15:40 05/20/22 15:40 Labs/Radiology: Radiology Impressions Chest X-Ray 05/20/22 15:17 IMPRESSION: Cardiomegaly and upper lobe pulmonary venous distention. No acute chest abnormality. Laboratory Results WBC 7.9 10^3/uL (4.0-10.0) 05/20/22 15:40 RBC 3.78 10^6/uL (4.1-5.3) L 05/20/22 15:40 Hgb 8.8 g/dL (11.5-15.3) L 05/20/22 15:40 Hct 31.6 % (37.0-47.0) L 05/20/22 15:40 MCV 83.6 fl (81-99) 05/20/22 15:40 MCH 23.3 pg (28.0-34.0) L 05/20/22 15:40 MCHC 27.8 g/dL (30.0-36.0) L 05/20/22 15:40 RDW 21.6 % (12.1-15.1) H 05/20/22 15:40 Plt Count 327 10^3/cmm (130-400) 05/20/22 15:40 MPV 10.3 fL (7.4-10.4) 05/20/22 15:40 Neut % (Auto) 70.3 % 05/20/22 15:40 Lymph % (Auto) 18.5 % 05/20/22 15:40 [place] % (Auto) 7.6 % 05/20/22 15:40 Eos % (Auto) 2.4 % 05/20/22 15:40 Baso % (Auto) 0.8 % 05/20/22 15:40 Neut # (Auto) 5.56 10^3/uL (1.8-7.7) 05/20/22 15:40 Lymph # (Auto) 1.5 10^3/uL (0.8-4.8) 05/20/22 15:40 [place] # (Auto) 0.6 10^3/uL (0.2-0.9) 05/20/22 15:40 Eos # (Auto) 0.2 10^3/uL (0.0-0.8) 05/20/22 15:40 Baso # (Auto) 0.1 10^3/uL (0.0-0.1) 05/20/22 15:40 Nucleated RBC % (auto) 0 % 05/20/22 15:40 Nucleated RBCs # 0.0 /100WBC 05/20/22 15:40 Sodium 143 mmol/L (136-145) 05/20/22 15:40 Potassium 4.3 mmol/L (3.5-5.1) 05/20/22 15:40 Chloride 105 mmol/L (98-107) 05/20/22 15:40 Carbon Dioxide 28 mmol/L (22-29) 05/20/22 15:40 Anion Gap 14.3 (5-19) 05/20/22 15:40 BUN 11 mg/dL (8-23) 05/20/22 15:40 Creatinine 0.9 mg/dL (0.5-0.9) 05/20/22 15:40 GFR Calculation Not Reportable 05/20/22 15:40 Glucose 96 mg/dL (65-115) 05/20/22 15:40 Calculated Osmolality 295 mOsm/kg (285-295) 05/20/22 15:40 Calcium 8.8 mg/dL (8.5-10.5) 05/20/22 15:40 Total Bilirubin 0.5 mg/dL (0.15-1.2) 05/20/22 15:40 AST 14 U/L (0-32) 05/20/22 15:40 ALT 10 U/L (0-33) 05/20/22 15:40 Alkaline Phosphatase 105 U/L (35-105) 05/20/22 15:40 Troponin T Baseline 21 ng/L (0-10) H 05/20/22 15:40 Troponin T 120 Minute 22.15 ng/L (0-10) H 05/20/22 17:34 Delta Troponin T 1.15 ABS# (0-10) 05/20/22 17:34 NT-Pro-B Natriuret Pep 1760 pg/mL (0-450) H 05/20/22 15:40 Total Protein 6.3 g/dL (6.6-8.7) L 05/20/22 15:40 Albumin 3.8 g/dL (3.5-5.2) 05/20/22 15:40 Globulin 2.5 g/dL (1.3-4.6) 05/20/22 15:40 Lipase 25 U/L (13-60) 05/20/22 15:40 Coronavirus 229E (PCR) Not detected (NOT DETECT) 05/20/22 16:01 SARS-CoV-2 (PCR) Not detected (NOT DETECT) 05/20/22 16:01 Discharge Plan Discharge Patient Disposition: Home Clinical Impression: Acute exacerbation of chronic obstructive airways disease, Pulmonary edema, Acute hypoxemic respiratory failure Condition: Stable Prescriptions: New doxycycline hyclate 100 mg capsule 100 mg PO BID 10 Days Qty: 20 0RF albuterol sulfate 90 mcg/actuation HFA aerosol inhaler 2 inh inhalation Q4H PRN (Reason: shortness of breath or wheezing) Qty: 8.5 0RF Lasix 20 mg tablet 20 mg PO DAILY Qty: 30 0RF potassium chloride 8 mEq capsule, extended release 8 meq PO DAILY Qty: 30 0RF No Action coenzyme Q10 [CoQ-10] 100 mg capsule 200 mg PO DAILY diphenhydramine HCl [Diphenhist] 25 mg capsule 50 mg PO BEDTIME mecobalamin (vitamin B12) 1,000 mcg tablet,chewable 1,000 mcg PO DAILY ginkgo biloba leaf extract 120 mg capsule 120 mg PO DAILY Rx Instructions: give with meal/snack cholecalciferol (vitamin D3) 25 mcg (1,000 unit) capsule 25 mcg PO DAILY multivitamin Tablet 1 tab PO DAILY lidocaine-epinephrine (PF) 2 %-1:200,000 solution 1 ml SUBCUT ONCE Qty: 20 0RF pantoprazole 40 mg tablet,delayed release (DR/EC) 40 mg PO BID Qty: 180 1RF amlodipine 5 mg tablet 5 mg PO DAILY Qty: 90 3RF albuterol sulfate 90 mcg/actuation HFA aerosol inhaler 2 puff inhalation Q4H PRN (Reason: shortness of breath or wheezing) Qty: 8.5 5RF valsartan 320 mg tablet 320 mg PO DAILY Qty: 90 3RF Hold Instructions: Doctor's Order atorvastatin 80 mg tablet 80 mg PO DAILY Qty: 90 2RF celecoxib [Celebrex] 50 mg capsule 50 mg PO BID Qty: 60 1RF aspirin [Adult Low Dose Aspirin] 81 mg tablet,delayed release (DR/EC) 81 mg PO DAILY Qty: 90 3RF betamethasone dipropionate 0.05 % ointment 1 applic topical BID Qty: 45 1RF Rx Instructions: to affected area on hand no more than 2 wks/mo triamcinolone acetonide 0.1 % ointment 1 applic topical BID Qty: 80 0RF Rx Instructions: apply to affected area no more than 2 weeks per month. not for face mupirocin 2 % ointment 1 applic topical BID 14 Days Qty: 15 0RF Discharge Orders: Discharge ED (Routine); Ordered 05/20/22 Ordered By: Axel Abbott Other Ambulatory Orders: DME: Oxygen (Order) Location: None Selected Ordered By: Axel Abbott Referrals: Regulo Kelley DO [Primary Care Provider] - Discharge Diet: Low Salt Discharge Activity: Increase activity as tolerated Patient Instructions: Pulmonary Edema (ED), COPD (Chronic Obstructive Pulmonary Disease) (ED) Activity Restrictions/Additional Instructions: Thank you for visiting the emergency department. You were seen and evaluated for shortness of breath and chest pain. The most likely cause of your symptoms is multifactorial including exacerbation of COPD and pulmonary edema which is indicative of heart failure. I offered admission which you are declining at this time. Please follow-up with your primary care provider. I will message case management for cardiology follow-up. I will prescribe steroids and antibiotics. Please also use your albuterol metered-dose inhaler 2 puffs every 4 hours for 24 hours followed by 2 puffs every 6 hours for 24 hours followed by 2 puffs every 8 hours for 24 hours and then return to the normal schedule. Return to the emergency department for anything that you are concerned about and feel needs emergency department evaluation. Coding Level of Care Code ED Assistant To The Ceo for Veronica Perkins
--- NOTE | 2022-05-20 15:17 | XR_ITS ---
WS: [id number] XR chest 1V portable [id number] REASON FOR EXAM: cp, sob FINDINGS: Most recent comparison is 06/23/2020. Moderate tortuosity and ectasia of the thoracic aorta. Cardiomegaly. Calcified granulomatous disease bilaterally. Calcified mediastinal nodes. Mild upper lobe pulmonary venous distention. Blunting of the costophrenic angles which appears to be chronic. Coarse reticular interstitial lung opacities which appear to be chronic. No acute pulmonary parenchymal or pleural abnormality. Moderate degenerative spondylosis in the mid and lower thoracic spine. XR/XR chest 1V portable [id number] IMPRESSION: Cardiomegaly and upper lobe pulmonary venous distention. No acute chest abnorma lity.
[2022-05-20] MEDS: ipratropium-albuterol 3 mL Neb INHALATION (15:45)
[2022-05-20 15:55] LABS: Basophils # 0.1 10^3/uL (0.0-0.1); Basophils % 0.8 %; Eosinophils # 0.2 10^3/uL (0.0-0.8); Eosinophils % 2.4 %; Hematocrit 31.6 % (37.0-47.0); Hemoglobin 8.8 g/dL (11.5-15.3); Lymphocytes # 1.5 10^3/uL (0.8-4.8); Lymphocytes % 18.5 %; Mean Corpuscular HGB Conc 27.8 g/dL (30.0-36.0); Mean Corpuscular Hemoglobin 23.3 pg (28.0-34.0); Mean Corpuscular Volume 83.6 fl (81-99); Mean Platelet Volume 10.3 fL (7.4-10.4); Monocytes # 0.6 10^3/uL (0.2-0.9); Monocytes % 7.6 %; Neutrophils # 5.56 10^3/uL (1.8-7.7); Neutrophils % 70.3 %; Nucleated Red Blood Cells % 0 %; Platelet Count 327 10^3/cmm (130-400); Red Blood Count 3.78 10^6/uL (4.1-5.3); Red Cell Distribution Width 21.6 % (12.1-15.1); White Blood Count 7.9 10^3/uL (4.0-10.0)
[2022-05-20 16:23] LABS: Troponin(5th) Baseline 21 ng/L (0-10)
[2022-05-20 16:30] LABS: Alanine Aminotransferase 10 U/L (0-33); Albumin Level 3.8 g/dL (3.5-5.2); Alkaline Phosphatase 105 U/L (35-105); Anion Gap 14.3 (5-19); Aspartate Amino Transferase 14 U/L (0-32); Blood Urea Nitrogen 11 mg/dL (8-23); Calcium 8.8 mg/dL (8.5-10.5); Carbon Dioxide 28 mmol/L (22-29); Chloride 105 mmol/L (98-107); Globulin 2.5 g/dL (1.3-4.6); Glucose 96 mg/dL (65-115); Lipase 25 U/L (13-60); NT Pro B Type Natriuretic Pept 1760 pg/mL (0-450); Osmolality Calculated 295 mOsm/kg (285-295); Potassium 4.3 mmol/L (3.5-5.1); Sodium 143 mmol/L (136-145); Total Bilirubin 0.5 mg/dL (0.15-1.2); Total Protein 6.3 g/dL (6.6-8.7)
--- NOTE | 2022-05-20 17:21 | ECG_ITS ---
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
[2022-05-20 17:59] LABS: Adenovirus Not Detected (NOT DETECT); Chlamydia Pneumoniae Not Detected (NOT DETECT); Coronavirus 229E,HKU1,NL63,OC4 Not Detected (NOT DETECT); Human Metapneumovirus Not Detected (NOT DETECT); Human Rhinovirus/Enterovirus Not Detected (NOT DETECT); Influenza A Not Detected (NOT DETECT); Influenza A H1 Not Detected (NOT DETECT); Influenza A H1-2009 Not Detected (NOT DETECT); Influenza A H3 Not Detected (NOT DETECT); Influenza B Not Detected (NOT DETECT); Mycoplasma Pneumoniae Not Detected (NOT DETECT); Parainfluenza Virus Type 1 Not Detected (NOT DETECT); Parainfluenza Virus Type 2 Not Detected (NOT DETECT); Parainfluenza Virus Type 3 Not Detected (NOT DETECT); Parainfluenza Virus Type 4 Not Detected (NOT DETECT); Respiratory Syncytial Virus A Not Detected (NOT DETECT); Respiratory Syncytial Virus B Not Detected (NOT DETECT); SARS-COV-2 Not Detected (NOT DETECT)
[2022-05-20 18:50] LABS: Troponin 5 2HR 22.15 ng/L (0-10)
[2022-05-20 18:51] LABS: Troponin 5 2HR Delta 1.15 ABS# (0-10)
== END 2022-05-20 21:45 | disposition home or self-care (01) ==
PROVIDERS: Emergency Provider Emergency Medicine; PCP Family Medicine
DX: J44.1 Chronic obstructive pulmonary disease with (acute) exacerbation (principal); J81.1 Chronic pulmonary edema; J96.01 Acute respiratory failure with hypoxia; Z79.82 Long term (current) use of aspirin; Z20.822 Contact with and (suspected) exposure to COVID-19; I51.7 Cardiomegaly; F17.210 Nicotine dependence, cigarettes, uncomplicated; E78.5 Hyperlipidemia, unspecified; E11.9 Type 2 diabetes mellitus without complications
CPT/HCPCS: 71045; 80053; 83690; 83880; 84484; 85025; 87040; 87635; 93005; 94640; 96374; 99285; J2930

== ENCOUNTER → 2022-07-11 17:09 | Outpatient (BNVA) | payer MEDICARE, MEDICAID, SELFPAY | PROVIDERS: PCP Family Medicine; Visit Provider Family Medicine | DX: D50.9 Iron deficiency anemia, unspecified (principal) | CPT/HCPCS: 85027 ==

== ENCOUNTER 2022-08-05 09:02 | Inpatient (IN) | payer MEDICARE, MEDICAID, SELFPAY ==
[2022-08-05] VITALS (13 sets, daily range): BP systolic 111–155; BP diastolic 46–68; PULSE 53–81; RESP 16–24; TEMP 36.5–36.9; O2SAT 91–98; BMI 31.1
--- NOTE | 2022-08-05 09:03 | XR_ITS ---
WS: [id number] Exam: XR chest 1V portable [id number] Date/Time of Exam: 08/05/2022 9:11 AM Reason For Exam: cp Comparison 05/20/2022. The lungs are fully expanded and clear. Cardiac enlargement with increased pulmonary vascularity. No focal infiltrates are seen. Chronic blunting of left costophrenic angle probably representing pleural thickening. Thoracolumbar scoliosis. The mediastinum is normal in contour. Surgical clips in the rig ht neck. XR/XR chest 1V portable [id number] IMPRESSION: 1. Cardiac enlargement with increased pulmonary vascularity. The pattern is unc hanged. 2. No acute infiltrate identified.
--- NOTE | 2022-08-05 09:09 | ECG_ITS ---
[facility] Test Date: 2022-08-05 Pat Name: Ayah Sanchez Department: Room: Gender: Female Gear Shaper: : 1945 Requested By: Vignesh Ferris Order Number: [id number] Landon MD: Wojciech Siddiqui M.D. Measurements Intervals [place] Rate: 61 P: 49 [place]: 150 QRS: 67 QRSD: 106 T: 92 QT: 340 QTc: 345 Interpretive Statements SINUS RHYTHM WITH OCCASIONAL SUPRAVENTRICULAR PREMATURE COMPLEXES POSSIBLE LEFT VENTRICULAR HYPERTROPHY [VOLTAGE CRITERIA PLUS LAE OR QRS WIDENING] NONSPECIFIC ST & T-WAVE ABNORMALITY Compared to ECG 05/20/2022 17:21:56 T-wave abnormality now present ST (T wave) deviation no longer present Electronically Signed On 08-05-2022 10:04:52 CDT by Wojciech Siddiqui M.D. [id number]
[2022-08-05 09:22] LABS: Basophils # 0.1 10^3/uL (0.0-0.1); Basophils % 0.6 %; Eosinophils # 0.1 10^3/uL (0.0-0.8); Eosinophils % 1.3 %; Hematocrit 27.4 % (37.0-47.0); Hemoglobin 7.8 g/dL (11.5-15.3); Lymphocytes # 1.4 10^3/uL (0.8-4.8); Lymphocytes % 15.1 %; Mean Corpuscular HGB Conc 28.5 g/dL (30.0-36.0); Mean Corpuscular Hemoglobin 22.5 pg (28.0-34.0); Mean Corpuscular Volume 79.2 fl (81-99); Mean Platelet Volume 10.4 fL (7.4-10.4); Monocytes # 0.7 10^3/uL (0.2-0.9); Monocytes % 7.8 %; Neutrophils # 7.01 10^3/uL (1.8-7.7); Neutrophils % 74.6 %; Nucleated Red Blood Cells % 0 %; Platelet Count 358 10^3/cmm (130-400); Red Blood Count 3.46 10^6/uL (4.1-5.3); Red Cell Distribution Width 17.8 % (12.1-15.1); White Blood Count 9.4 10^3/uL (4.0-10.0)
--- NOTE | 2022-08-05 09:32 | W.ED.CHESTPA ---
HPI - Chest Pain General: Chief Complaint: Chest Pain Stated Complaint: CHEST PAIN Time Seen by Provider: 08/05/22 09:03 Source: patient and EMS Mode of arrival: EMS Limitations: no limitations History of Present Illness: 76-year-old female who states she been having some chest pain since 2 AM states it is a bandlike pain around her chest. States she has a long history of COPD denies any increased shortness of breath she denies any worsening proving factors states that her pain is currently resolved. She has had no vomiting or diarrhea. Associated symptoms: Deny abdominal pain, dyspnea, fever(s), nausea or vomiting Review of Systems Const: Denies: fever(s), chills, body aches or change in appetite ENMT: Denies: throat pain or dental pain Card: Reports: chest pain Resp: Denies: dyspnea GI: Denies: abdominal pain, nausea, vomiting or diarrhea : Denies: dysuria Musc: Denies: neck pain or back pain Skin/Breast: Denies: rash Neuro: Denies: headache(s) PFSH ED PFSH: Medical History Bilateral carotid artery stenosis Colon polyps Diverticulosis Hiatal hernia Hyperlipidemia associated with type 2 diabetes mellitus Presence of intrathecal pump Ventricular hypertrophy Surgical History H/O cataract extraction H/O: hysterectomy Hx of appendectomy Family History Mother CAD (coronary artery disease), Onset Age: 70 Cancer Dementia Sister Diabetes Denies family history of Clotting disorder Chronic kidney disease (CKD) Suicide Anesthesia complication Bleeding disorder Lung disease Stroke Social History Smoking and tobacco status: former smoker Alcohol intake: never Substance/Drug Use: never Female Reproductive History: Spontaneous abortions: No Physical Exam Const: COMMON NORMALS: no acute distress, patient oriented x3 and healthy appearing HENMT: COMMON NORMALS: normocephalic and atraumatic HEAD & SCALP: normocephalic and atraumatic Eye: COMMON NORMALS: EOMs intact bilaterally and conjunctivae normal CONJUNCTIVA: Yes conjunctivae normal Neck/C-Spine: COMMON NORMALS: full ROM and supple Chest: COMMONS NORMALS: normal inspection of the chest and normal palpation of entire chest wall Resp: COMMON NORMALS: normal respiratory effort, No retractions, No use of accessory muscles and clear to auscultation bilaterally AUSCULTATION: clear to auscultation bilaterally Cardio: COMMON NORMALS: regular rate, regular rhythm and No murmurs present (Cardio) RATE: regular rate RHYTHM: regular rhythm GI: COMMON NORMALS: Normal to inspection, nondistended, normoactive bowel sounds present, Soft to palpation, non-tender and no masses PALPATION: Yes Soft to palpation Extremity: COMMON NORMALS: normal to inspection and full ROM Neuro: COMMON NORMALS: patient oriented x3, moves all extremities and no focal motor deficits Psych: COMMON NORMALS: mental status grossly normal, Normal thought process present and cooperative THOUGHT PROCESS: Normal thought process present Skin: COMMON NORMALS: no rashes or lesions noted and no wounds GENERAL SKIN EXAM: no rashes or lesions noted Course Vital Signs: Vital signs: Vital Signs Temperature 98.3 F 08/05/22 09:03 Pulse Rate 64 08/05/22 12:00 Respiratory Rate 18 08/05/22 11:26 Blood Pressure 130/58 08/05/22 12:00 Pulse Oximetry 95 08/05/22 12:00 Oxygen Delivery Me thod Nasal Cannula 08/05/22 11:26 Oxygen Flow Rate 2 08/05/22 11:26 MDM - Chest Pain Medical Decision Making Patient presents for chest pain she has had some slight dyspnea she does have an elevated 2-hour troponin CT did show a PE. I am concerned with the level troponin elevation with the size of the PA that it may not be caused by the PE we will give patient dose of Lovenox I spoke to the hospitalist and we discussed he is likely going to get cardiology involved make sure there is no coronary artery disease causing the troponin leak could be due to a pulmonary embolism we will trend troponins as well will admit to the cardiac stepdown Medical Records I reviewed the patient's medical records. Lab Data I reviewed the patient's lab results. 08/05/22 08:45 08/05/22 08:45 Radiology Impressions Chest X-Ray 08/05/22 09:03 IMPRESSION: 1. Cardiac enlargement with increased pulmonary vascularity. The pattern is unchanged. 2. No acute infiltrate identified. Chest CTA 08/05/22 11:17 IMPRESSION: 1. There is asymmetry of the density of the vessel indicative of some slow flow and subsegmental pulmonary thromboembolic sequela posterior basal segment of the right lower lobe. Overall no central saddle type embolus or evidence of right heart strain is appreciated with the right ventricular to left ventricular ratio of approximately 0.6. 2. There is some improved aeration overall with chronic air trapping and some scarring type appearance with some patchy consolidation scarring residual associated of the posterior basal segment of the right lower lobe. Some superimposed inflammation could also present in this fashion. ADDENDUM: 08/05/22 1226 THIS REPORT CONTAINS FINDINGS THAT MAY BE CRITICAL TO PATIENT CARE. The findings were verbally communicated via telephone conference at 12:25 PM CDT on 08/05/2022 with MURALI LAI. The findings were acknowledged and understood. Laboratory Results WBC 9.4 10^3/uL (4.0-10.0) 08/05/22 08:45 RBC 3.46 10^6/uL (4.1-5.3) L 08/05/22 08:45 Hgb 7.8 g/dL (11.5-15.3) L 08/05/22 08:45 Hct 27.4 % (37.0-47.0) L 08/05/22 08:45 MCV 79.2 fl (81-99) L 08/05/22 08:45 MCH 22.5 pg (28.0-34.0) L 08/05/22 08:45 MCHC 28.5 g/dL (30.0-36.0) L 08/05/22 08:45 RDW 17.8 % (12.1-15.1) H 08/05/22 08:45 Plt Count 358 10^3/cmm (130-400) 08/05/22 08:45 MPV 10.4 fL (7.4-10.4) 08/05/22 08:45 Neut % (Auto) 74.6 % 08/05/22 08:45 Lymph % (Auto) 15.1 % 08/05/22 08:45 [place] % (Auto) 7.8 % 08/05/22 08:45 Eos % (Auto) 1.3 % 08/05/22 08:45 Baso % (Auto) 0.6 % 08/05/22 08:45 Neut # (Auto) 7.01 10^3/uL (1.8-7.7) 08/05/22 08:45 Lymph # (Auto) 1.4 10^3/uL (0.8-4.8) 08/05/22 08:45 [place] # (Auto) 0.7 10^3/uL (0.2-0.9) 08/05/22 08:45 Eos # (Auto) 0.1 10^3/uL (0.0-0.8) 08/05/22 08:45 Baso # (Auto) 0.1 10^3/uL (0.0-0.1) 08/05/22 08:45 Nucleated RBC % (auto) 0 % 08/05/22 08:45 Nucleated RBCs # 0.0 /100WBC 08/05/22 08:45 PT 12.80 SECONDS (12.1-14.9) 08/05/22 08:45 INR 0.93 (0.8-1.2) 08/05/22 08:45 Sodium 141 mmol/L (136-145) 08/05/22 08:45 Potassium 4.0 mmol/L (3.5-5.1) 08/05/22 08:45 Chloride 101 mmol/L (98-107) 08/05/22 08:45 Carbon Dioxide 28 mmol/L (22-29) 08/05/22 08:45 Anion Gap 16.0 (5-19) 08/05/22 08:45 BUN 12 mg/dL (8-23) 08/05/22 08:45 Creatinine 1.1 mg/dL (0.5-0.9) H 08/05/22 08:45 GFR Calculation Not Reportable 08/05/22 08:45 Glucose 117 mg/dL (65-115) H 08/05/22 08:45 Calculated Osmolality 293 mOsm/kg (285-295) 08/05/22 08:45 Calcium 8.8 mg/dL (8.5-10.5) 08/05/22 08:45 Total Bilirubin 0.3 mg/dL (0.15-1.2) 08/05/22 08:45 AST 12 U/L (0-32) 08/05/22 08:45 ALT 6 U/L (0-33) 08/05/22 08:45 Alkaline Phosphatase 103 U/L (35-105) 08/05/22 08:45 Troponin T Baseline 64 ng/L (0-10) H 08/05/22 08:45 Troponin T 120 Minute 111.2 ng/L (0-10) H 08/05/22 10:30 Delta Troponin T 47.2 ABS# (0-10) H* 08/05/22 10:30 NT-Pro-B Natriuret Pep 1775 pg/mL (0-450) H 08/05/22 08:45 Total Protein 6.6 g/dL (6.6-8.7) 08/05/22 08:45 Albumin 4.1 g/dL (3.5-5.2) 08/05/22 08:45 Globulin 2.5 g/dL (1.3-4.6) 08/05/22 08:45 Lipase 28 U/L (13-60) 08/05/22 08:45 EKG Data EKG 1: I personally reviewed and interpreted this EKG as follows: EKG interpretation date: 08/05/22 EKG interpretation time: 09:09 Interpretation: nsr hr [address] elevation qrs 106 qtc 344 Discharge Plan Discharge Patient Disposition: Admitted As Inpatient Admit Provider: Sloan De Paz Clinical Impression: Chest pain, Pulmonary embolism Condition: Stable Coding Level of Care Code ED Hand Method Lasting Machine Operator for Veronica Perkins
[2022-08-05 09:34] LABS: INR 0.93 (0.8-1.2)
[2022-08-05 09:47] LABS: Troponin(5th) Baseline 64 ng/L (0-10)
[2022-08-05 09:52] LABS: Alanine Aminotransferase 6 U/L (0-33); Albumin Level 4.1 g/dL (3.5-5.2); Alkaline Phosphatase 103 U/L (35-105); Aspartate Amino Transferase 12 U/L (0-32); Blood Urea Nitrogen 12 mg/dL (8-23); Calcium 8.8 mg/dL (8.5-10.5); Carbon Dioxide 28 mmol/L (22-29); Chloride 101 mmol/L (98-107); Globulin 2.5 g/dL (1.3-4.6); Glucose 117 mg/dL (65-115); Lipase 28 U/L (13-60); NT Pro B Type Natriuretic Pept 1775 pg/mL (0-450); Osmolality Calculated 293 mOsm/kg (285-295); Sodium 141 mmol/L (136-145); Total Bilirubin 0.3 mg/dL (0.15-1.2); Total Protein 6.6 g/dL (6.6-8.7)
[2022-08-05 11:01] LABS: Troponin 5 2HR 111.2 ng/L (0-10); Troponin 5 2HR Delta 47.2 ABS# (0-10)
--- NOTE | 2022-08-05 11:03 | ECG_ITS ---
[facility] Test Date: 2022-08-05 Pat Name: Ayah Sanchez Department: Room: Gender: Female Road Crossing Guard: : 1945 Requested By: Vignesh Ferris Order Number: [id number] Landon MD: Wojciech Siddiqui M.D. Measurements Intervals [place] Rate: 70 P: 63 [place]: 167 QRS: 62 QRSD: 99 T: 208 QT: 398 QTc: 431 Interpretive Statements SINUS RHYTHM LEFT VENTRICULAR HYPERTROPHY AND ST-T CHANGE [VOLTAGE CRITERIA PLUS ST/T ABNORMALITY] Compared to ECG 08/05/2022 09:09:32 ST (T wave) deviation now present T-wave abnormality no longer present Electronically Signed On 08-05-2022 13:13:31 CDT by Wojciech Siddiqui M.D. [id number]
--- NOTE | 2022-08-05 11:17 | CTR_ITS ---
PROCEDURE INFORMATION: Exam: CTA Chest With Contrast Exam date and time: 08/05/2022 11:32 AM Age: 76 years old Clinical indication: Shortness of breath; Additional info: SOB.No history of trauma or recent surgery is provided. TECHNIQUE: Imaging protocol: Computed tomographic angiography of the chest with contrast. Exam focused on the arteries. 846image(s) are provided. 3D rendering (Not supervised by radiologist): MIP and/or 3D reconstructed images were created by the technologist. Radiation optimization: All CT scans at this facility use at least one of these dose optimization techniques: automated exposure control; mA and/or kV adjustment per patient size (includes targeted exams where dose is matched to clinical indication); or iterative reconstruction. Contrast material: OMNI 350; Contrast volume: 68 ml; Contrast route: INTRAVENOUS (IV); Other technique: Axial images are available with sagittal and coronal reconstruction views. Automated dose exposure control is utilized. The DLP is 370.30. REPORTING DATA: Count of CT and Cardiac NM exams in prior 12 months: This patient has received 2 known CTs and 0 known cardiac nuclear medicine studies in the 12 months prior to the current study. COMPARISON: 1. CT angio chest PE protcl [id number] 06/23/2020 10:27 PM. Chest radiograph report same day. 2. CT chest w con* [id number] 06/09/2021 1:[address] angio chest [id number] 11/10/2017 2:32 PM RADIATION DOSE METRICS: Total DLP (mGy-cm): 370.34 FINDINGS: Tubes, catheters and devices: There is some spinal stimulator or catheter type device present similar overall. Pulmonary arteries: No central pulmonary thromboembolism is appreciated. There is some prominence overall of the central pulmonary artery suggestive of pulmonary hypertension. There is some slightly lower overall asymmetric filling indicative of some subsegmental pulmonary thromboembolism of the posterior basal segment of the right lower lobe. This extends to the area of scarring with lower overall density as compared to the adjacent vessels. There is some motion artifact on the left. Aorta: There are atherosclerotic calcified and noncalcified changes of the aorta similar overall. Trachea: The central airways are grossly patent. There do appear to be some mucus or secretion type change about the left mainstem bronchus versus esophageal marginal averaging similar. Lungs: There is some slightly heterogeneous attenuation of the parenchyma overall and could be seen with some postinflammatory or small airways disease related sequela. There is some apical fibrous scarring similar overall along with some minimal bleb type appearance similar. There is volume loss with some chronic scarring type appearance of the posterior lung bases. There is some patchy coalescence and could represent some superimposed inflammation posterior basal right lower lobe. There is some granulomatous appearance of the right upper lobe similar. There is some partially calcified nodularity of the left lower lobe abutting the adjacent mediastinal and vascular margins similar overall measuring approximately 2.1 cm in diameter. The density is much less than the adjacent vasculature. Pleural spaces: No interval significant pleural effusion is appreciated. No pneumothorax is appreciated. Heart: There are aortic root as well as mitral apparatus calcifications present. There is some asymmetry and could represent some left ventricular overall muscular thickening with hypertrophy. Coronary arteries: There are coronary arterial calcifications present. Lymph nodes: There are subcentimeter predominant para-aortic and mesenteric lymph nodes overall present. There are mediastinal and hilar galen calcification similar overall. Liver: There appears to be some mild hepatic steatosis. Hepatic granulomatous calcific appearance is demonstrated. Spleen: There are granulomatous splenic calcifications present. Adrenal glands: There is some adrenal hypertrophy left more so than right similar overall. Stomach and bowel: There is a small sliding-type hiatal hernia demonstrated with slight gastroesophageal fold thickening. Intraperitoneal space: There is a similar otherwise interval appearance of the included intraperitoneal space, upper abdominal structures. Bones/joints: Osseous alignment is maintained.No interval displaced fracture or dislocation is appreciated.There is slightly decreased bone mineralization overall. There is some thoracic spondylosis present as well as incidental hemangioma type averaging similar. Soft tissues: No radiopaque foreign body or subcutaneous emphysema is appreciated. Other findings: There is some motion artifact present. No other significant interval changes are appreciated. CT/CT angio chest PE protcl [id number] IMPRESSION: 1. There is asymmetry of the density of the vessel indicative of some slow flow and subsegmental pulmonary thromboembolic sequela posterior basal segment of the right lower lobe. Overall no central saddle type embolus or evidence of right heart strain is appreciated with the right ventricular to left ventricular ratio of approximately 0.6. 2. There is some improved aeration overall with chronic air trapping and some scarring type appearance with some patchy consolidation scarring residual associated of the posterior basal segment of the right lower lobe. Some superimposed inflammation could also present in this fashion.
[2022-08-05] MEDS: enoxaparin 80 mg/0.8 mL Syringe SUBCUT (11:26)
[2022-08-05] MEDS: iohexol 350 mg/mL 500 mL Btl (per mL) IV (11:38)
--- NOTE | 2022-08-05 14:35 | USCV_ITS ---
Ayah Sanchez Age: 76 Gender: F : 1945 Exam Date: 08/05/2022 21:07 Ordering Phys: Sloan De Paz MD Technologist: CHRIS Exam Location: [facility] [place] Indication: chf BP: / HR: 58 Rhythm: Sinus Technical Quality: Adequate MEASUREMENTS (Male / Female) Normal Values 2D ECHO LV Diastolic Diameter PLAX 6.0 cm 4.2 - 5.9 / 3.9 - 5.3 cm LV Systolic Diameter PLAX 5.1 cm IVS Diastolic Thickness 0.9 cm 0.6 - 1.0 / 0.6 - 0.9 cm IVS Systolic Thickness 1.3 cm LVPW Diastolic Thickness 1.0 cm 0.6 - 1.0 / 0.6 - 0.9 cm LVPW Systolic Thickness 1.1 cm LVOT Diameter 1.9 cm LV Ejection Fraction 2D Teich 30.5 % LV Ejection Fraction MOD 2C 38.9 % LV Ejection Fraction 2C AL 37.3 % LA Diameter 4.7 cm IVC Diameter 2.2 cm M-MODE Aortic Annulus Diameter 3.2 cm LA Ao Ratio MM 1.5 MV E Point Septal Separation 0.9 cm DOPPLER AV Peak Velocity 167.0 cm/s LVOT Peak Velocity 91.0 cm/s AV Area Cont Eq vti 1.7 cm squared AV Area Cont Eq pk 1.6 cm squared MV Area PHT 3.7 cm squared Mitral E to A Ratio 2.1 MV E' Velocity 48.0 cm/s Mitral E to MV E' Ratio 20.3 Mitral E to LV E' Lateral Ratio 17.6 Mitral E to LV E' Septal Ratio 24.1 TR Peak Velocity 267.0 cm/s TR Peak Gradient 28.5 mmHg TV Peak E Velocity 56.0 cm/s Right Atrial Pressure 6.0 mmHg Pulmonary Artery Systolic Pressu 34.5 mmHg PV Peak Velocity 120.0 cm/s FINDINGS Left Ventricle Technically limited quality echocardiogram because of poor ultrasonic windows. Grossly LV systolic function is normal. Regional wall motion abnormalities can not be assessed because of poor visualization. Right Ventricle Grossly normal Right Atrium Not well visualized. Left Atrium Dilated. Mitral Valve Structurally normal mitral valve. Mild mitral regurgitation. Aortic Valve Grossly normal. No significant stenosis or regurgitation. Tricuspid Valve Not well visualized. Pulmonic Valve Mild pulmonic regurgitation. Pericardium Normal Aorta Normal in size IVC Not well visualized CONCLUSIONS Technically limited quality echocardiogram because of poor ultrasonic windows Grossly LV systolic function is normal. Regional wall motion abnormalities can not be assessed because of poor visualization. Left atrial dilation Mild mitral regurgitation Mild pulmonic regurgitation. Comparison with prior echocardiogram not possible because of poor visualization of cardiac structures. Recommend limited echocardiogram with contrast to assess wall motion. Wojciech Siddiqui MD (Electronically Signed) Final Date: 06 August 2022 08:48 S
--- NOTE | 2022-08-05 14:37 | P.HP_ITS ---
Providers/Chief Complaint Admitting Physician: Sloan De Paz Primary Care Provider: Regulo Kelley DO Chief Complaint: CHEST PAIN History of Present Illness Pleasant 76-year-old lady with history of COPD, states back in May had a health event where she seems to be much worse, at that time requiring 4 L of oxygen, at that time also with lower extremity edema, orthopnea, was started on Lasix, prior to that also with hypertension, but since then blood pressure has been she states doing better, softer even to 100s to 1 teens systolic and says her heart rate has been slower as well down to 50s-60s. She states that with Lasix her lower extremity edema had improved quite significantly. She still prefers to sleep with head of bed elevated. She used to be a smoker in the past smoking for about 60 years. Recently also treated for cholesterol, although since May stopped taking atorvastatin. Back in January 2022 she had a stress test IMPRESSIONS 1. Myocardial perfusion imaging revealing small to moderate area of slightly decreased tracer uptake in the inferolateral, anterolateral and inferior regions with a subtle area of reversibility suggesting myocardial scarring with a very small area of ischemia. 2. Normal LV ejection fraction 65%. 3. LV wall motion analysis revealing hypokinetic LV apex 4. Normal LV volume 5. Elevated transient ischemic dilatation r [id number] atio, may suggest endocardial ischemia. Clinical correlation is recommended Arrangements were being made for her to follow-up with cardiology on outpatient basis but this has not yet occurred with an appointment set up for 08/15. She comes into the hospital for evaluation due to chest tightness and bandlike distribution lower chest as well as upper chest/lower neck which woke her up this morning and she was also nauseated. She also noticed recently her heart rates becoming elevated when she stands and especially if she walks. She had not noticed that rest was providing any relief. She did get relief when she got nitroglycerin and EMS. Currently not having symptoms. In ER noted with sinus bradycardia, heart rates 50s. On 2 L nasal cannula oxygen. Respiratory rate 18-24. PE is found on CTA chest. Additionally noted abnormality NT-proBNP 1775 same similar to prior, but does have mildly elevated baseline troponin with positive delta 2-hour troponin rise from 64 up to 111. Review of Systems Const: Denies: fever(s), chills, body aches or malaise Eyes: Denies: change in vision, eye discomfort or eye redness ENMT: Denies: throat pain, oral sores or ear or mastoid pain Card: Reports: chest pain, edema and orthopnea; Denies: palpitations, pre-syncope or dyspnea on exertion Resp: Denies: dyspnea, productive cough, change in phlegm color or hemoptysis GI: Reports: nausea; Denies: abdominal pain, vomiting, diarrhea, constipation, hematochezia or melena : Denies: flank pain, urinary frequency or hematuria Musc: Denies: back pain, joint swelling or joint redness Skin/Breast: Denies: rash or new lesions Neuro: Denies: headache(s), numbness in extremities, weakness in extremities, dizziness, confusion or seizure-like activity Endo: Denies: polyuria or polydipsia Roney/Lymph: Denies: easy bleeding or tender lymph nodes All/Imm: Denies: urticaria or tongue swelling Medications/Allergies Home Medications Medication Instructions Recorded Confirmed Last Taken Type aspirin 81 mg tablet,delayed 81 mg PO DAILY #90 tabs 12/18/20 08/05/22 08/04/22 Rx release (Adult Low Dose Aspirin) multivitamin 1 tab PO DAILY 07/26/21 08/05/22 08/04/22 History betamethasone dipropionate 0.05 % 1 applic topical BID #45 grams 10/19/21 08/05/22 Unknown Rx topical ointment triamcinolone acetonide 0.1 % 1 applic topical BID #80 grams 11/11/21 08/05/22 Unknown Rx topical ointment mupirocin 2 % topical ointment 1 applic topical BID 2 weeks #15 11/29/21 08/05/22 Unknown Rx grams atorvastatin 80 mg tablet 80 mg PO DAILY #90 tabs 12/20/21 08/05/22 Unknown Rx pantoprazole 40 mg tablet,delayed 40 mg PO BID #180 tabs 04/28/22 08/05/22 08/04/22 Rx release furosemide 40 mg tablet 40 mg PO DAILY 30 days #90 tabs 05/31/22 08/05/22 08/05/22 Rx oxygen #1 ea 05/31/22 08/05/22 Unknown Rx potassium chloride 10 mEq 10 meq PO DAILY #90 caps 05/31/22 08/05/22 08/04/22 Rx capsule,extended release Ventolin HFA 90 mcg/actuation 2 puff inhalation Q4H PRN 06/21/22 08/05/22 Unknown Rx aerosol inhaler (albuterol sulfate) shortness of breath or wheezing #18 grams iron sucrose 200 mg iron/10 mL 200 mg IV Q7D 08/05/22 08/05/22 Unknown History intravenous solution (Venofer) Allergies Allergy/AdvReac Type Severity Reaction Status Date / Time aspirin Allergy Unknown unknown Verified 08/03/22 11:30 Sulfa (Sulfonamide Allergy Unknown unknown Verified 08/03/22 11:30 Antibiotics) PFSH Acute PFSH: Medical History Bilateral carotid artery stenosis Colon polyps COPD (chronic obstructive pulmonary disease) Dark stools Diverticulosis Hiatal hernia HTN (hypertension) Hyperlipidemia associated with type 2 diabetes mellitus Presence of intrathecal pump Ventricular hypertrophy Surgical History H/O cataract extraction H/O: hysterectomy Hx of appendectomy Family History Mother CAD (coronary artery disease), Onset Age: 70 Cancer Dementia Sister Diabetes Denies family history of Clotting disorder Chronic kidney disease (CKD) Suicide Anesthesia complication Bleeding disorder Lung disease Stroke Social History Smoking and tobacco status: former smoker Alcohol intake: never Substance/Drug Use: never Female Reproductive History: Spontaneous abortions: No Vitals/I&O/Wt Last Vital Signs Temp 98.3 F 08/05/22 09:03 Pulse 59 L 08/05/22 14:23 Resp 24 H 08/05/22 14:23 BP 146/59 08/05/22 14:23 Pulse Ox 96 08/05/22 14:23 O2 Del Method Nasal Cannula 08/05/22 14:23 O2 Flow Rate 2 08/05/22 14:23 Weight last 48 hrs Weight 77.111 kg Physical Exam 2 Const: COMMON NORMALS: patient oriented x3 and alert GENERAL APPEARANCE: cooperative ORIENTATION/CONSCIOUSNESS: Yes awake HENMT: COMMON NORMALS: oropharynx normal OTHER: NC Neck/C-Spine: COMMON NORMALS: no JVD Resp: COMMON NORMALS: normal respiratory effort and clear to auscultation bilaterally AUSCULTATION: clear to auscultation bilaterally and diminished lung sounds (Mildly) Cardio: COMMON NORMALS: no JVD, regular rhythm, S1 normal heart sound present, S2 normal heart sound present and No murmurs present (Cardio) RHYTHM: regular rhythm HEART SOUNDS: S1 normal heart sound present and S2 normal heart sound present GI: COMMON NORMALS: Normal to inspection, nondistended, normoactive bowel sounds present, Soft to palpation and non-tender PALPATION: Yes Soft to palpation Extremity: COMMON NORMALS: no joint enlargement and no pedal edema GENERAL: Yes edema (Mild) Neuro: COMMON NORMALS: patient oriented x3 and moves all extremities SENSORIUM/ORIENTATION: Yes alert Skin: COMMON NORMALS: no rashes or lesions noted GENERAL SKIN EXAM: no rashes or lesions noted Data 08/05/22 08:45 08/05/22 08:45 A&P Assessment and plan (1) NSTEMI (non-ST elevated myocardial infarction): Aspect, she states can only tolerate 81 mg and continue. Continue anticoagulation with Lovenox. Monitor on telemetry. Complete troponin EKG series. TTE Appreciate cardiology consultation given prior abnormal stress test, recent CHF symptoms, concern for/suspicion for underlying coronary disease, consideration of further assessment. Restart atorvastatin. Her heart rates have been running slow, in the 50s, noted about her. (2) Pulmonary embolism: Lovenox. Discussed with her subsequently switching over to oral anticoagulation. Monitoring globin. At risk of bleeding. She does state that she gets dark stools, states that it is because of her iron supplement. We will check Hemoccult. PPI for now. States she has had upper endoscopy several years back alongside lower endoscopy, with upper endoscopy unremarkable. (3) Chest pain: Resolved, noted NSTEMI, PE, additional work-up and management as above. Lipase noted unremarkable. (4) COPD (chronic obstructive pulmonary disease): Chronic COPD, currently does not appear to be in exacerbation. Normally on 2 L nasal cannula oxygen. (5) Dark stools: Reports started after iron supplementation. Does have iron deficiency anemia. States couple years back had upper and lower endoscopy, states upper endoscopy was unremarkable. 2 polyps in the lower endoscopy. Check Hemoccult. Monitor hemoglobin. (6) Iron deficiency anemia: (7) CHF (congestive heart failure): Symptoms consistent with CHF in the past, back in May with exacerbation it seems, has been improving with edema in her lower extremities down, orthopnea with improvement, but still prefers elevating head of bed. On Lasix. Assess with TTE. Type unknown. NT proBNP noted 177, although may be also related secondary to chronic lung disease. (8) HTN (hypertension): History of hypertension, although states after being started on Lasix blood pressures were more in 100s-100 teens systolic, but currently blood pressure ap pears to be high again. Currently slightly better 122/80. Monitor blood pressures to help optimize control. (9) GERARDO (acute kidney injury): Minimal GERARDO, creatinine up to 1.1. Denies any NSAID use. Possibility of some mild degree of CKD with noted creatinine 1.1 back in June 2021 as well as in August 2018. Monitor creatinine. Plan Aspirin allergy: Listed aspirin allergy, states that in the past had a reaction with swelling around her eyes, feeling unwell when she took a larger dose of aspirin. She states has been tolerating well small dose of 81 mg aspirin. He is agreeable to continue without any concerns. Discussed with ER physician, ER documentation reviewed. Discussed with cardiology. Attestations Medical Necessity Statement*: Admission of over 2 midnights anticipated for assessment of management of NSTEMI, PE in a lady with suspected underlying CHF, not formally diagnosed, as well as with underlying COPD, on chronic oxygen and additional comorbidities. Diagnoses NSTEMI (non-ST elevated myocardial infarction) I21.4 Pulmonary embolism I26.99 Chest pain R07.9 COPD (chronic obstructive pulmonary disease) J44.9 Dark stools R19.5 Iron deficiency anemia D50.9 CHF (congestive heart failure) I50.9 HTN (hypertension) I10 GERARDO (acute kidney injury) N17.9
--- NOTE | 2022-08-05 15:03 | ECG_ITS ---
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 Measurements Intervals Orma Rate: 57 P: 55 NV: 150 QRS: 65 QRSD: 99 T: 93 QT: 407 QTc: 398 Interpretive Statements SINUS BRADYCARDIA LEFT VENTRICULAR HYPERTROPHY AND ST-T CHANGE [VOLTAGE CRITERIA PLUS ST/T ABNORMALITY] Compared to ECG 08/05/2022 11:26:02 Sinus rhythm no longer present ST (T wave) deviation still present Electronically Signed On 08-05-2022 17:07:07 CDT by Wojciech Siddiqui M.D. [email or web address]
--- NOTE | 2022-08-05 15:05 | PM.CONSULT ---
Providers/Reason For Consult Consulting Physician/Specialty*: Wojciech Siddiqui MD/ Cardiology Reason for Consult*: NSTEMI Requesting Physician: Dr De Paz Attending Physician: Sloan De Paz Primary Care Provider: Regulo Kelley DO History of Present Illness History of Present Illness Ayah Sanchez is a 76 year old female with past medical history of hypertension, carotid artery disease presented to the hospital with 2 weeks of on and off of bandlike chest discomfort and throat discomfort. Also has been having shortness of breath. She notices her heart rate goes up discomfort worsens. In the ER, CTA showed pulmonary embolism. Troponin has trended up from 64-111 at 2 hours. EKG shows normal sinus rhythm with a rate of 61 bpm and LVH changes. Review of Systems Const: Denies: fever(s), chills, body aches or malaise Eyes: Denies: change in vision, eye discomfort or eye redness ENMT: Denies: throat pain, oral sores or ear or mastoid pain Card: Reports: chest pain, edema and orthopnea; Denies: palpitations, pre-syncope or dyspnea on exertion Resp: Denies: dyspnea, productive cough, change in phlegm color or hemoptysis GI: Reports: nausea; Denies: abdominal pain, vomiting, diarrhea, constipation, hematochezia or melena : Denies: flank pain, urinary frequency or hematuria Musc: Denies: back pain, joint swelling or joint redness Skin/Breast: Denies: rash or new lesions Neuro: Denies: headache(s), numbness in extremities, weakness in extremities, dizziness, confusion or seizure-like activity Endo: Denies: polyuria or polydipsia Roney/Lymph: Denies: easy bleeding or tender lymph nodes All/Imm: Denies: urticaria or tongue swelling Medications/Allergies Home Medications Medication Instructions Recorded Confirmed Last Taken Type aspirin 81 mg tablet,delayed 81 mg PO DAILY #90 tabs 12/18/20 08/05/22 08/04/22 Rx release (Adult Low Dose Aspirin) multivitamin 1 tab PO DAILY 07/26/21 08/05/22 08/04/22 History betamethasone dipropionate 0.05 % 1 applic topical BID #45 grams 10/19/21 08/05/22 Unknown Rx topical ointment triamcinolone acetonide 0.1 % 1 applic topical BID #80 grams 11/11/21 08/05/22 Unknown Rx topical ointment mupirocin 2 % topical ointment 1 applic topical BID 2 weeks #15 11/29/21 08/05/22 Unknown Rx grams atorvastatin 80 mg tablet 80 mg PO DAILY #90 tabs 12/20/21 08/05/22 Unknown Rx pantoprazole 40 mg tablet,delayed 40 mg PO BID #180 tabs 04/28/22 08/05/22 08/04/22 Rx release furosemide 40 mg tablet 40 mg PO DAILY 30 days #90 tabs 05/31/22 08/05/22 08/05/22 Rx oxygen #1 ea 05/31/22 08/05/22 Unknown Rx potassium chloride 10 mEq 10 meq PO DAILY #90 caps 05/31/22 08/05/22 08/04/22 Rx capsule,extended release Ventolin HFA 90 mcg/actuation 2 puff inhalation Q4H PRN 06/21/22 08/05/22 Unknown Rx aerosol inhaler (albuterol sulfate) shortness of breath or wheezing #18 grams iron sucrose 200 mg iron/10 mL 200 mg IV Q7D 08/05/22 08/05/22 Unknown History intravenous solution (Venofer) Allergies Allergy/AdvReac Type Severity Reaction Status Date / Time aspirin Allergy Unknown unknown Verified 08/03/22 11:30 Sulfa (Sulfonamide Allergy Unknown unknown Verified 08/03/22 11:30 Antibiotics) PFSH Acute PFSH: Medical History Bilateral carotid artery stenosis Colon polyps COPD (chronic obstructive pulmonary disease) Dark stools Diverticulosis Hiatal hernia HTN (hypertension) Hyperlipidemia associated with type 2 diabetes mellitus Presence of intrathecal pump Ventricular hypertrophy Surgical History H/O cataract extraction H/O: hysterectomy Hx of appendectomy Family History Mother CAD (coronary artery disease), Onset Age: 70 Cancer Dementia Sister Diabetes Denies family history of Clotting disorder Chronic kidney disease (CKD) Suicide Anesthesia complication Bleeding disorder Lung disease Stroke Social History (Reviewed 08/06/22 @ 09:20 by Miguel Lynn Smoking and tobacco status: former smoker Alcohol intake: never Substance/Drug Use: never Female Reproductive History: Spontaneous abortions: No Vitals/I&O/Wt Last Vital Signs Temp 98.3 F 08/05/22 09:03 Pulse 59 L 08/05/22 14:23 Resp 24 H 08/05/22 14:23 BP 146/59 08/05/22 14:23 Pulse Ox 96 08/05/22 14:23 O2 Del Method Nasal Cannula 08/05/22 14:23 O2 Flow Rate 2 08/05/22 14:23 Weight last 48 hrs Weight 170 lb Physical Exam Narrative: GENERAL: Patient is alert, awake and oriented x3. [] NECK: No jugular vein distension. [] HEENT: No cyanosis. No icterus. No pallor. [] HEART: Regular S1 and S2. No murmur, rub or gallop. [] LUNGS: Clear to auscultate bilaterally. [] CENTRAL NERVOUS SYSTEM: Grossly nonfocal. [] EXTREMITIES: Lower extremities with no edema Data 08/06/22 05:49 08/06/22 05:49 A&P Assessment and plan (1) NSTEMI (non-ST elevated myocardial infarction): Patient has chest pain that is typical features. Troponins have trended up significantly. She has risk factors for CAD. She will benefit from coronary angiogram with possible PCI. However has significant anemia. We will recommend keeping her on anticoagulation and aspirin for 48 hours to assess if hemoglobin drops. Also need Hemoccult as has dark stools. She is on iron supplementation. (2) Pulmonary embolism: Continue Lovenox. Continue PPI. Hemoccult ordered. May need further GI evaluation if hemoglobin keeps dropping before coronary angiogram is performed. (3) Chest pain: Stable at this time (4) COPD (chronic obstructive pulmonary disease): Management per primary team (5) Dark stools: On iron supplementation. Getting Hemoccult check (6) Iron deficiency anemia: (7) CHF (congestive heart failure): Echocardiogram ordered. NT proBNP is elevated. Continue Lasix (8) HTN (hypertension): Plan Continue aspirin and Lovenox. Getting Hemoccult. Will recommend continuing on anticoagulation for 48 hours prior to coronary angiogram to assess if hemoglobin drops. If it does, she will need GI work-up before coronary angiogram/PCI. Consult Attestations Medical Necessity Statement: Care expected to cross 2 midnights. Coding Level of Care Code Acute Code for Chg Fwd Diagnoses NSTEMI (non-ST elevated myocardial infarction) I21.4 Pulmonary embolism I26.99 Chest pain R07.9 COPD (chronic obstructive pulmonary disease) J44.9 Dark stools R19.5 Iron deficiency anemia D50.9 CHF (congestive heart failure) I50.9 HTN (hypertension) I10
[2022-08-05] MEDS: aspirin 81 mg EC Tablet PO (16:19)
[2022-08-05] MEDS: pantoprazole DR 40 mg Tablet PO (17:31)
[2022-08-05] MEDS: efferdent effervescent 1 EACH DENTAL (20:53)
[2022-08-05] MEDS: enoxaparin 80 mg/0.8 mL Syringe 77 MG SUBCUT (22:18)
[2022-08-06] VITALS (13 sets, daily range): BP systolic 104–147; BP diastolic 50–76; PULSE 54–68; RESP 16–22; TEMP 36.3–37.2; O2SAT 72–98
[2022-08-06 06:06] LABS: Basophils # 0.1 10^3/uL (0.0-0.1); Basophils % 0.9 %; Eosinophils # 0.3 10^3/uL (0.0-0.8); Eosinophils % 4.9 %; Hematocrit 24.6 % (37.0-47.0); Hemoglobin 6.8 g/dL (11.5-15.3); Lymphocytes # 1.6 10^3/uL (0.8-4.8); Lymphocytes % 23.6 %; Mean Corpuscular HGB Conc 27.6 g/dL (30.0-36.0); Mean Corpuscular Hemoglobin 22.9 pg (28.0-34.0); Mean Corpuscular Volume 82.8 fl (81-99); Monocytes # 0.6 10^3/uL (0.2-0.9); Monocytes % 9.1 %; Neutrophils # 4.24 10^3/uL (1.8-7.7); Neutrophils % 61.1 %; Nucleated Red Blood Cells % 0 %; Platelet Count 278 10^3/cmm (130-400); Red Blood Count 2.97 10^6/uL (4.1-5.3); Red Cell Distribution Width 18.2 % (12.1-15.1); White Blood Count 6.9 10^3/uL (4.0-10.0)
[2022-08-06 06:20] LABS: Alanine Aminotransferase < 5 U/L (0-33); Albumin Level 3.3 g/dL (3.5-5.2); Alkaline Phosphatase 82 U/L (35-105); Anion Gap 15.2 (5-19); Aspartate Amino Transferase 10 U/L (0-32); Blood Urea Nitrogen 12 mg/dL (8-23); Calcium 8.4 mg/dL (8.5-10.5); Carbon Dioxide 27 mmol/L (22-29); Chloride 103 mmol/L (98-107); Globulin 2.6 g/dL (1.3-4.6); Glucose 94 mg/dL (65-115); Osmolality Calculated 292 mOsm/kg (285-295); Potassium 4.2 mmol/L (3.5-5.1); Sodium 141 mmol/L (136-145); Total Bilirubin 0.3 mg/dL (0.15-1.2); Total Protein 5.9 g/dL (6.6-8.7)
--- NOTE | 2022-08-06 06:38 | PC.NURSE ---
notified Dr Rojas of Hgb 6.8, order to transfuse 1 unit prbc and hold 1100 dose of lovenox
--- NOTE | 2022-08-06 09:25 | P.PN_ITS ---
Subjective Subjective: Patient is chest pain free at this time. Has a significant drop in hemoglobin. No overt GI bleed Vitals/I&O/Wt Last Vital Signs Temp 97.9 F 08/06/22 07:53 Pulse 60 08/06/22 08:00 Resp 18 08/06/22 07:53 BP 143/65 08/06/22 07:53 Pulse Ox 97 08/06/22 08:00 O2 Del Method Nasal Cannula 08/06/22 08:00 O2 Flow Rate 2 08/06/22 08:00 08/05/22 08/06/22 08/06/22 22:59 06:59 14:59 Intake Total 240 / 240 Balance 240 / 240 Weight last 48 hrs Weight 178 lb 3.2 oz Weight 170 lb Physical Exam Narrative: GENERAL: Patient is alert, awake and oriented x3. [] NECK: No jugular vein distension. [] HEENT: No cyanosis. No icterus. No pallor. [] HEART: Regular S1 and S2. No murmur, rub or gallop. [] LUNGS: Clear to auscultate bilaterally. [] CENTRAL NERVOUS SYSTEM: Grossly nonfocal. [] EXTREMITIES: Lower extremities with no edema Data 08/07/22 03:37 08/07/22 03:37 A&P Assessment and plan (1) NSTEMI (non-ST elevated myocardial infarction): Has a significant drop in hemoglobin. Will recommend continuing anticoagulation for PE treatment. She will benefit from GI evaluation with endoscopy. Transfuse blood with goal hemoglobin above 8. ECHO shows normal LV systolic function (2) Pulmonary embolism: Continue Lovenox. Continue PPI. Hemoccult ordered. May need further GI evaluation if hemoglobin keeps dropping before coronary angiogram is performed. (3) Chest pain: Stable at this time (4) COPD (chronic obstructive pulmonary disease): Management per primary team (5) Dark stools: On iron supplementation. Getting Hemoccult check (6) Iron deficiency anemia: (7) CHF (congestive heart failure): ECHO shows normal LV systolic function (8) HTN (hypertension): Plan Continue aspirin and Lovenox. Consult surgery team for endoscopy. Will recommend continuing on anticoagulation and transfuse as needed. Attestations Medical Necessity Statement*: Care expected to cross 2 midnights. Coding Level of Care Code Acute Code for [facility] Fwd Diagnoses NSTEMI (non-ST elevated myocardial infarction) I21.4 Pulmonary embolism I26.99 Chest pain R07.9 COPD (chronic obstructive pulmonary disease) J44.9 Dark stools R19.5 Iron deficiency anemia D50.9 CHF (congestive heart failure) I50.9 HTN (hypertension) I10
[2022-08-06] MEDS: aspirin 81 mg EC Tablet PO (09:46)
[2022-08-06] MEDS: FUROsemide 40 mg Tablet PO (09:47)
[2022-08-06] MEDS: potassium chloride ER 10 mEq Tablet PO (09:47)
[2022-08-06] MEDS: atorvastatin 40 mg Tablet 80 MG PO (09:47)
[2022-08-06] MEDS: pantoprazole 40 mg SDV IVP ×2 (09:53→21:12)
--- NOTE | 2022-08-06 11:09 | USCV_ITS ---
Ayah Sanchez Age: 76 Gender: F : 1945 Exam Date: 08/06/2022 12:40 Ordering Phys: Sloan De Paz MD Technologist: CHRIS [place]am [place] [facility] [place] Indication: nstemi BP: / HR: Rhythm: Sinus Technical Quality: Adequate MEASUREMENTS (Male / Female) Normal Values FINDINGS Left Ventricle Right Ventricle Right Atrium Left Atrium Mitral Valve Aortic Valve Tricuspid Valve Pulmonic Valve Pericardium Aorta IVC CONCLUSIONS Limited echocardiogram performed. To assess LV systolic function. LV systolic function is normal with EF of 60 to 65%. No regional wall motion abnormalities are seen. Wojciech Siddiqui MD (Electronically Signed) Final Date: 07 August 2022 10:26 S
[2022-08-06] MEDS: sodium chloride 0.9% 100 mL Bag 50 ML IV (14:03)
--- NOTE | 2022-08-06 14:08 | PC.NURSE ---
Consent for blood/ blood products confirmed on chart, unit number [id number] verified by RN times two, vital signs obtained and blood started. RN will stay with patient for first 15 minutes of transfusion to monitor patient.
--- NOTE | 2022-08-06 14:25 | PC.NURSE ---
RN stayed with patient during first 15 minutes of the blood transfusion. Vital signs obtained. No transfusion reactions noted at this time. Will continue to monitor.
--- NOTE | 2022-08-06 15:10 | PM.CONSULT ---
Providers/Reason For Consult Consulting Physician/Specialty*: Darlin Hernandez MD General Surgery Reason for Consult*: anemia Requesting Physician: Sloan De Paz Attending Physician: Sloan De Paz Primary Care Provider: Regulo Kelley DO History of Present Illness History of Present Illness Ayah Sanchez is a 76 year old female admitted with NSTEMI and PE who has had a drop in hemoglobin. Dr. Siddiqui is requesting endoscopic evaluation prior to cardiac catheterization. Patient denies any change in bowel habits or abdominal pain. She denies nausea or vomiting. She states that her stools have been black since starting iron supplementation. She denies hematochezia or hematemesis. Her last colonoscopy was 3 years ago and she had polyps removed. She was not advised to return for repeat colonoscopy. Review of Systems Const: Denies: fever(s) or chills Card: Reports: chest pain Resp: Denies: dyspnea GI: Denies: abdominal pain, hematemesis or hematochezia Roney/Lymph: Denies: easy bleeding Medications/Allergies Home Medications Medication Instructions Recorded Confirmed Last Taken Type aspirin 81 mg tablet,delayed 81 mg PO DAILY #90 tabs 12/18/20 08/05/22 08/04/22 Rx release (Adult Low Dose Aspirin) multivitamin 1 tab PO DAILY 07/26/21 08/05/22 08/04/22 History betamethasone dipropionate 0.05 % 1 applic topical BID #45 grams 10/19/21 08/05/22 Unknown Rx topical ointment triamcinolone acetonide 0.1 % 1 applic topical BID #80 grams 11/11/21 08/05/22 Unknown Rx topical ointment mupirocin 2 % topical ointment 1 applic topical BID 2 weeks #15 11/29/21 08/05/22 Unknown Rx grams atorvastatin 80 mg tablet 80 mg PO DAILY #90 tabs 12/20/21 08/05/22 Unknown Rx pantoprazole 40 mg tablet,delayed 40 mg PO BID #180 tabs 04/28/22 08/05/22 08/04/22 Rx release furosemide 40 mg tablet 40 mg PO DAILY 30 days #90 tabs 05/31/22 08/05/22 08/05/22 Rx oxygen #1 ea 05/31/22 08/05/22 Unknown Rx potassium chloride 10 mEq 10 meq PO DAILY #90 caps 05/31/22 08/05/22 08/04/22 Rx capsule,extended release Ventolin HFA 90 mcg/actuation 2 puff inhalation Q4H PRN 06/21/22 08/05/22 Unknown Rx aerosol inhaler (albuterol sulfate) shortness of breath or wheezing #18 grams iron sucrose 200 mg iron/10 mL 200 mg IV Q7D 08/05/22 08/05/22 Unknown History intravenous solution (Venofer) Allergies Allergy/AdvReac Type Severity Reaction Status Date / Time aspirin Allergy Unknown unknown Verified 08/03/22 11:30 Sulfa (Sulfonamide Allergy Unknown unknown Verified 08/03/22 11:30 Antibiotics) Current Medications Generic Name Dose Route Start Last Admin Trade Name Freq PRN Reason Stop Dose Admin Aspirin 81 mg 08/05/22 14:40 08/06/22 09:46 Aspirin 81 Mg Ec Tablet PO 81 mg DAILY CLARIE Administration Atorvastatin Calcium 80 mg 08/06/22 09:00 08/06/22 09:47 Atorvastatin 40 Mg Tablet PO 80 mg DAILY CLAIRE Administration Denture Adhesive 1 each 08/05/22 20:45 08/05/22 20:53 Efferdent Effervescent DENTAL 1 each PRN PRN Administration dentures Enoxaparin Sodium 77 mg 08/05/22 23:00 08/06/22 06:38 Enoxaparin 80 Mg/0.8 Ml Syringe SUBCUT Not Given Q12H CLAIRE Furosemide 40 mg 08/06/22 09:00 08/06/22 09:47 Furosemide 40 Mg Tablet PO 40 mg DAILY CLAIRE Administration Pantoprazole Sodium 40 mg 08/06/22 09:30 08/06/22 09:53 Pantoprazole 40 Mg Sdv IVP 40 mg Q12H CLAIRE Administration Potassium Chloride 10 meq 08/06/22 09:00 08/06/22 09:47 Potassium Chloride Er 10 Meq Tablet PO 10 meq DAILY CLAIRE Administration Sodium Chloride 50 ml 08/06/22 06:36 08/06/22 14:03 Sodium Chloride 0.9% 100 Ml Bag IV 08/07/22 06:36 50 ml PRN PRN Administration Blood transfusion prime and flush PFSH Acute PFSH: Medical History Bilateral carotid artery stenosis Colon polyps COPD (chronic obstructive pulmonary disease) Dark stools Diverticulosis Hiatal hernia HTN (hypertension) Hyperlipidemia associated with type 2 diabetes mellitus Presence of intrathecal pump Ventricular hypertrophy Surgical History H/O cataract extraction H/O: hysterectomy Hx of appendectomy Family History Mother CAD (coronary artery disease), Onset Age: 70 Cancer Dementia Sister Diabetes Denies family history of Clotting disorder Chronic kidney disease (CKD) Suicide Anesthesia complication Bleeding disorder Lung disease Stroke Social History Smoking and tobacco status: former smoker Alcohol intake: never Substance/Drug Use: never Female Reproductive History: Spontaneous abortions: No Vitals/I&O/Wt Last Vital Signs Temp 98.2 F 08/06/22 14:20 Pulse 58 L 08/06/22 14:20 Resp 22 H 08/06/22 14:20 BP 146/76 08/06/22 14:20 Pulse Ox 97 08/06/22 14:20 O2 Del Method Nasal Cannula 08/06/22 11:39 O2 Flow Rate 2 08/06/22 11:39 08/06/22 08/06/22 08/06/22 06:59 14:59 22:59 Intake Total 325 / 325 Output Total 500 / 500 Balance -175 / -175 Weight last 48 hrs Weight 178 lb 3.2 oz Weight 170 lb Physical Exam Const: COMMON NORMALS: no acute distress and alert HENMT: COMMON NORMALS: normocephalic and atraumatic HEAD & SCALP: normocephalic and atraumatic Eye: COMMON NORMALS: no scleral icterus Resp: COMMON NORMALS: normal respiratory effort and clear to auscultation bilaterally AUSCULTATION: clear to auscultation bilaterally Cardio: COMMON NORMALS: regular rhythm RATE: bradycardic RHYTHM: regular rhythm GI: INSPECTION: No abdominal distension AUSCULTATION: Yes normoactive bowel sounds PALPATION: Yes Tenderness to palpation present (GI) (mildly tender on left side), No Guarding due to palpation present (GI), No Palpable mass present and No Rebound tenderness present Extremity: GENERAL: Yes edema Neuro: SENSORIUM/ORIENTATION: Yes alert Psych: COMMON NORMALS: mental status grossly normal Data 08/06/22 05:49 08/06/22 05:49 A&P Assessment and plan (1) Iron deficiency anemia: Anemia in patient who is anticoagulated for treatment of pulmonary embolism, and potentially in need of antiplatelet therapy for NSTEMI. No overt signs of GI bleeding. She needs endoscopic evaluation for possible occult blood loss. Plan bowel prep tomorrow (MiraLAX split dose) with upper and lower endoscopy on Monday. Coding Level of Care Code Acute Code for Chg Fwd Diagnoses Iron deficiency anemia D50.9
--- NOTE | 2022-08-06 20:49 | P.PN_ITS ---
Subjective Subjective: She says she is doing all right. No chest pain. No outward bleeding, has not so far yet had a bowel movement. Vitals/I&O/Wt Last Vital Signs Temp 98.9 F 08/06/22 19:57 Pulse 56 L 08/06/22 19:57 Resp 18 08/06/22 19:57 BP 131/56 08/06/22 19:57 Pulse Ox 94 08/06/22 19:57 O2 Del Method Nasal Cannula 08/06/22 19:57 O2 Flow Rate 2 08/06/22 16:00 08/06/22 08/06/22 08/06/22 06:59 14:59 22:59 Intake Total 325 / 325 490 / 815 Output Total 500 / 500 100 / 600 Balance -175 / -175 390 / 215 Weight last 48 hrs Weight 80.83 kg Weight 77.111 kg Physical Exam Narrative: Accompanied by female family member. Const: COMMON NORMALS: patient oriented x3 and alert GENERAL APPEARANCE: cooperative ORIENTATION/CONSCIOUSNESS: Yes awake HENMT: COMMON NORMALS: oropharynx normal OTHER: NC Neck/C-Spine: COMMON NORMALS: no JVD Resp: COMMON NORMALS: normal respiratory effort and clear to auscultation bilaterally AUSCULTATION: clear to auscultation bilaterally and diminished lung sounds (Mildly) Cardio: COMMON NORMALS: no JVD, regular rhythm, S1 normal heart sound present, S2 normal heart sound present and No murmurs present (Cardio) RHYTHM: regular rhythm HEART SOUNDS: S1 normal heart sound present and S2 normal heart sound present GI: COMMON NORMALS: Normal to inspection, nondistended, normoactive bowel sounds present, Soft to palpation and non-tender PALPATION: Yes Soft to palpation Extremity: COMMON NORMALS: no joint enlargement and no pedal edema GENERAL: Yes edema (Mild) Neuro: COMMON NORMALS: patient oriented x3 and moves all extremities SENSORIUM/ORIENTATION: Yes alert Skin: COMMON NORMALS: no rashes or lesions noted GENERAL SKIN EXAM: no rashes or lesions noted Data 08/06/22 05:49 08/06/22 05:49 A&P Assessment and plan (1) Iron deficiency anemia: Acute anemia noted this morning, hemoglobin down to 6.8. Receiving 1 unit RBC transfusion. Changed PPI to 40 mg IV twice daily. Discussed with surgery, appreciate consultation. Switch anticoagulation to heparin drip. Reassess blood counts at risk of further bleeding. Surgical documentation appreciated. Plans for prep tomorrow for additional evaluation by endoscopy. (2) NSTEMI (non-ST elevated myocardial infarction): Noted worsened hemoglobin this morning, 6.8. Receiving RBC transfusion. Lovenox dose was held. Needs to be able to tolerate antiplatelets with anticipated possible need for stenting. Changed to heparin drip. Needs continued close monitoring given suspected possible GI bleeding. Monitor on telemetry. Complete troponin EKG series. TTE Appreciate cardiology consultation given prior abnormal stress test, recent CHF symptoms, concern for/suspicion for underlying coronary disease, consideration of further assessment. Restart atorvastatin. Her heart rates have been running slow, in the 50s, noted about her. (3) Pulmonary embolism: Lovenox held this morning with acute anemia. Received RBC transfusion. Changed to heparin drip. Reassess blood counts. At risk of bleeding. Hemoccult requested, so far has not had a BM. (4) Chest pain: Resolved, noted NSTEMI, PE, additional work-up and management as above. Lipase noted unremarkable. (5) COPD (chronic obstructive pulmonary disease): Chronic COPD, currently does not appear to be in exacerbation. Normally on 2 L nasal cannula oxygen. (6) Dark stools: As above. Reports started after iron supplementation. Does have iron defi ciency anemia. States couple years back had upper and lower endoscopy, states upper endoscopy was unremarkable. 2 polyps in the lower endoscopy. Check Hemoccult. Monitor hemoglobin. (7) CHF (congestive heart failure): Symptoms consistent with CHF in the past, back in May with exacerbation it seems, has been improving with edema in her lower extremities down, orthopnea with improvement, but still prefers elevating head of bed. On Lasix. TTE noted with unfortunately poor quality study, discussed with cardiology, requesting limited TTE with contrast. LV systolic function normal. NT proBNP noted 1774, although may be also related secondary to chronic lung disease. (8) HTN (hypertension): History of hypertension, although states after being started on Lasix blood pressures were more in 100s-100 teens systolic, but currently blood pressure appears to be high again. Currently slightly better. Monitor blood pressures to help optimize control. (9) GERARDO (acute kidney injury): Minimal GERARDO, creatinine up to 1.1. Denies any NSAID use. Possibility of some mild degree of CKD with noted creatinine 1.1 back in June 2021 as well as in August 2018. Monitor creatinine. Plan Aspirin allergy: Listed aspirin allergy, states that in the past had a reaction with swelling around her eyes, feeling unwell when she took a larger dose of aspirin. She states has been tolerating well small dose of 81 mg aspirin. He is agreeable to continue without any concerns. Discussed with cardiology and surgery. Cardiology, surgery documentation reviewed. Attestations Medical Necessity Statement*: Admission for chest pain management Diagnoses Iron deficiency anemia D50.9 NSTEMI (non-ST elevated myocardial infarction) I21.4 Pulmonary embolism I26.99 Chest pain R07.9 COPD (chronic obstructive pulmonary disease) J44.9 Dark stools R19.5 CHF (congestive heart failure) I50.9 HTN (hypertension) I10 GERARDO (acute kidney injury) N17.9
[2022-08-06] MEDS: heparin 5,000 unit/mL INJ 1 mL IV (21:14)
[2022-08-06] MEDS: heparin drip 25,000 UNIT/500 ML PREMIX 23 UNIT IV (21:16)
[2022-08-06 21:29] LABS: Hematocrit 28.6 % (37.0-47.0); Hemoglobin 8.1 g/dL (11.5-15.3); Platelet Count 320 10^3/cmm (130-400)
[2022-08-07] VITALS (14 sets, daily range): BP systolic 134–171; BP diastolic 57–80; PULSE 56–76; RESP 15–23; TEMP 36.6–37.2; O2SAT 93–98
[2022-08-07 04:21] LABS: Basophils # 0.1 10^3/uL (0.0-0.1); Basophils % 0.6 %; Eosinophils # 0.4 10^3/uL (0.0-0.8); Eosinophils % 4.7 %; Hematocrit 25.3 % (37.0-47.0); Hemoglobin 7.2 g/dL (11.5-15.3); Lymphocytes # 1.9 10^3/uL (0.8-4.8); Lymphocytes % 23.2 %; Mean Corpuscular HGB Conc 28.5 g/dL (30.0-36.0); Mean Corpuscular Hemoglobin 22.9 pg (28.0-34.0); Mean Corpuscular Volume 80.6 fl (81-99); Mean Platelet Volume 10.8 fL (7.4-10.4); Monocytes # 0.9 10^3/uL (0.2-0.9); Monocytes % 10.4 %; Neutrophils # 4.94 10^3/uL (1.8-7.7); Neutrophils % 60.5 %; Nucleated Red Blood Cells % 0 %; Platelet Count 290 10^3/cmm (130-400); Red Blood Count 3.14 10^6/uL (4.1-5.3); Red Cell Distribution Width 18.1 % (12.1-15.1); White Blood Count 8.2 10^3/uL (4.0-10.0)
[2022-08-07 04:35] LABS: Alanine Aminotransferase < 5 U/L (0-33); Albumin Level 3.4 g/dL (3.5-5.2); Alkaline Phosphatase 82 U/L (35-105); Anion Gap 14.2 (5-19); Aspartate Amino Transferase 10 U/L (0-32); Blood Urea Nitrogen 17 mg/dL (8-23); Calcium 8.3 mg/dL (8.5-10.5); Carbon Dioxide 31 mmol/L (22-29); Chloride 101 mmol/L (98-107); Globulin 2.6 g/dL (1.3-4.6); Glucose 97 mg/dL (65-115); Osmolality Calculated 295 mOsm/kg (285-295); Partial Thromboplastin Time 104.9 SECONDS (23.9-36.7); Potassium 4.2 mmol/L (3.5-5.1); Sodium 142 mmol/L (136-145)
--- NOTE | 2022-08-07 07:55 | PM.PN ---
Subjective Subjective: Patient is doing well. No chest pain. Again had a significant hemoglobin drop. Vitals/I&O/Wt Last Vital Signs Temp 97.8 F 08/07/22 07:22 Pulse 60 08/07/22 07:22 Resp 22 H 08/07/22 07:22 BP 171/73 08/07/22 07:22 Pulse Ox 94 08/07/22 07:22 O2 Del Method Nasal Cannula 08/07/22 07:22 O2 Flow Rate 2 08/06/22 21:41 08/06/22 08/07/22 08/07/22 22:59 06:59 14:59 Intake Total 490 / 815 470.583 / 1285.583 Output Total 100 / 600 Balance 390 / 215 470.583 / 685.583 Weight last 48 hrs Weight 179 lb 1.6 oz Weight 178 lb 3.2 oz Weight 170 lb Physical Exam Narrative: GENERAL: Patient is alert, awake and oriented x3. [] NECK: No jugular vein distension. [] HEENT: No cyanosis. No icterus. No pallor. [] HEART: Regular S1 and S2. No murmur, rub or gallop. [] LUNGS: Clear to auscultate bilaterally. [] CENTRAL NERVOUS SYSTEM: Grossly nonfocal. [] EXTREMITIES: Lower extremities with no edema Data 08/08/22 03:56 08/08/22 03:56 A&P Assessment and plan (1) NSTEMI (non-ST elevated myocardial infarction): Patient had a blood transfusion yesterday and again dropped her hemoglobin. Plan for GI evaluation with endoscopy tomorrow. Transfuse 1 unit of blood again today. (2) Pulmonary embolism: Continue anticoagulation. If no source of bleeding is found, she may benefit from IVC filter placement as she is not tolerating anticoagulation. (3) Chest pain: Stable at this time (4) COPD (chronic obstructive pulmonary disease): Management per primary team (5) Dark stools: On iron supplementation. (6) Iron deficiency anemia: (7) CHF (congestive heart failure): ECHO shows normal LV systolic function (8) HTN (hypertension): Plan Continue aspirin and Lovenox. Plan for endoscopy tomorrow. Transfuse 1 unit of blood today Attestations Medical Necessity Statement*: Care expected to cross 2 midnights. Coding Level of Care Code Acute Code for g Fwd Diagnoses NSTEMI (non-ST elevated myocardial infarction) I21.4 Pulmonary embolism I26.99 Chest pain R07.9 COPD (chronic obstructive pulmonary disease) J44.9 Dark stools R19.5 Iron deficiency anemia D50.9 CHF (congestive heart failure) I50.9 HTN (hypertension) I10
[2022-08-07] MEDS: aspirin 81 mg EC Tablet PO (09:48)
[2022-08-07] MEDS: atorvastatin 40 mg Tablet 80 MG PO (09:49)
[2022-08-07] MEDS: pantoprazole 40 mg SDV IVP ×2 (09:50→21:20)
[2022-08-07] MEDS: FUROsemide 40 mg Tablet PO (09:50)
[2022-08-07] MEDS: potassium chloride ER 10 mEq Tablet PO (09:50)
--- NOTE | 2022-08-07 11:12 | USR_ITS ---
PROCEDURE INFORMATION: Exam: US Duplex Lower Extremity Veins, Bilateral Exam date and time: 08/07/2022 2:37 PM Age: 76 years old Clinical indication: Edema, localized; Lower extremity, bilateral; Additional info: Assess for dvt TECHNIQUE: Imaging protocol: Real-time duplex ultrasound of the bilateral extremities with 2-D guerra scale, color Doppler flow and spectral waveform analysis including responses to compression and other maneuvers (when performed) with image documentation. Complete exam focused on the lower extremity veins. COMPARISON: CT abdomen pelvis wo con [id number] 08/07/2022 12:35 PM FINDINGS: Right deep veins: Unremarkable. The common femoral, femoral, proximal profunda femoral and popliteal veins are patent without thrombus. Normal Doppler waveforms. Normal compressibility and/or augmentation response. Right superficial veins: Saphenofemoral junction is patent without thrombus. Left deep veins: The common femoral, femoral, proximal profunda femoral and popliteal veins are patent without thrombus. Normal Doppler waveforms. Normal compressibility and/or augmentation response. Left superficial veins: Saphenofemoral junction is patent without thrombus. Soft tissues: Probable subcutaneous edema. US/CV venous duplex [facility] [id number] IMPRESSION: No evidence of deep vein thrombosis.
--- NOTE | 2022-08-07 12:15 | CTR_ITS ---
PROCEDURE INFORMATION: Exam: CT Abdomen And Pelvis Without Contrast Exam date and time: 08/07/2022 12:35 PM Age: 76 years old Clinical indication: Decreasing hemoglobin following blood transfusion. Other: Assess for retroperitoneal or other bleed TECHNIQUE: Imaging protocol: Computed tomography of the abdomen and pelvis without contrast. Radiation optimization: All CT scans at this facility use at least one of these dose optimization techniques: automated exposure control; mA and/or kV adjustment per patient size (includes targeted exams where dose is matched to clinical indication); or iterative reconstruction. REPORTING DATA: Count of CT and Cardiac NM exams in prior 12 months: This patient has received 3 known CTs and 0 known cardiac nuclear medicine studies in the 12 months prior to the current study. COMPARISON: 1. CT chest w con* [id number] 06/09/2021 1:[address] kidney stone [id number] 06/23/2020 8:[address] angio chest PE protcl [id number] 08/05/2022 11:32 AM RADIATION DOSE METRICS: Total DLP (mGy-cm): 710.13 FINDINGS: Tubes, catheters and devices: There are intrathecal catheter is entering posteriorly at L1-L2 and L2-L3. The catheter at L2-L3 is entirely contained with in within the thecal sac. This finding is unchanged since 06/23/2020. Lungs: There is subsegmental atelectasis in the lung bases. 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 The liver is not pathologically enlarged. There is no focal liver abnormality. Gallbladder and bile ducts: There is high attenuation material within the gallbladder lumen consistent with sludge. There is no intrahepatic or extrahepatic bile duct dilation. Pancreas: The pancreas is unremarkable. Spleen: The spleen is unremarkable. Adrenal glands: There is stable hypertrophy of the left adrenal gland. Kidneys and ureters: Mild asymmetric atrophy of the right kidney. No hydronephrosis or stones on the right. The left kidney and ureter are unremarkable. Stomach and bowel: The stomach is decompressed, preventing meaningful evaluation of wall thickness. Proximal small bowel is normal. There is mildly dilated gas-filled mid small bowel in the right upper quadrant which demonstrates abrupt transition to decompressed segment of small bowel extending into the right lower abdomen with associated mesenteric architectural distortion. The distal ileum is nondistended. There is mild distal descending and sigmoid colonic diverticulosis without evidence of diverticulitis. Appendix: The appendix is not visible. Intraperitoneal space: There is no free air or significant intraperitoneal free fluid. Vasculature: The distal thoracic aorta measures 3.5 cm diameter. Maximal diameter of the abdominal aorta is 2.6 cm. There is a partially imaged peripherally calcified 2.2 cm nodule in the left infrahilar region intimately associated with the descending thoracic aorta. There is internal enhancement of the nodule on the prior CTA suggesting a calcified lymph node. No change since 06/09/2021. There is severe aortic atherosclerotic disease. Lymph nodes: There is no lymphadenopathy in the retroperitoneum, mesentery, pelvis or inguinal regions. Urinary bladder: The urinary bladder is decompressed, preventing meaningful evaluation of wall thickness. Reproductive: The uterus is absent. There is no adnexal mass or large cyst. Bones/joints: Spinal alignment is normal. Vertebral body height is maintained. There are multilevel vertebral hemangiomas. There is moderate degenerative disease of both hips. The pelvis and hips are intact. Soft tissues: There is an implanted pump in the subcutaneous right lower quadrant abdominal wall. There is a small fat containing right inguinal hernia. CT/CT abdomen pelvis wo con [id number] IMPRESSION: 1. No sign of intra-abdominal bleeding 2. Abrupt caliber change in the right upper quadrant mid small bowel with mild gaseous dilation of a short segment of upstream small bowel. Possible partial obstruction. 3. Incidental findings above.
[2022-08-07] MEDS: bisacodyl 5 mg Tablet 20 MG PO (13:08)
--- NOTE | 2022-08-07 17:21 | P.PN_ITS ---
Vitals/I&O/Wt Last Vital Signs Temp 98.3 F 08/07/22 15:42 Pulse 64 08/07/22 15:45 Resp 20 H 08/07/22 15:42 BP 150/73 08/07/22 15:45 Pulse Ox 93 08/07/22 15:42 O2 Del Method Nasal Cannula 08/07/22 11:36 O2 Flow Rate 2 08/07/22 09:15 08/07/22 08/07/22 08/07/22 06:59 14:59 22:59 Intake Total 470.583 / 1285.583 840 / 840 0 / 840 Balance 470.583 / 685.583 840 / 840 0 / 840 Weight last 48 hrs Weight 81.238 kg Weight 80.83 kg Physical Exam Narrative: Accompanied by female family member. Const: COMMON NORMALS: patient oriented x3 and alert GENERAL APPEARANCE: cooperative ORIENTATION/CONSCIOUSNESS: Yes awake HENMT: COMMON NORMALS: oropharynx normal OTHER: NC Neck/C-Spine: COMMON NORMALS: no JVD Resp: COMMON NORMALS: normal respiratory effort and clear to auscultation bilaterally AUSCULTATION: clear to auscultation bilaterally and diminished lung sounds (Mildly) Cardio: COMMON NORMALS: no JVD, regular rhythm, S1 normal heart sound present, S2 normal heart sound present and No murmurs present (Cardio) RHYTHM: regular rhythm HEART SOUNDS: S1 normal heart sound present and S2 normal heart sound present GI: COMMON NORMALS: Normal to inspection, nondistended, normoactive bowel sounds present, Soft to palpation and non-tender PALPATION: Yes Soft to palpation Extremity: COMMON NORMALS: no joint enlargement and no pedal edema GENERAL: Yes edema (Mild) Neuro: COMMON NORMALS: patient oriented x3 and moves all extremities SENSORIUM/ORIENTATION: Yes alert Skin: COMMON NORMALS: no rashes or lesions noted GENERAL SKIN EXAM: no rashes or lesions noted Data 08/07/22 03:37 08/07/22 03:37 A&P Assessment and plan (1) Iron deficiency anemia: Discussed with her, noted worsening anemia again hemoglobin down to 7.2. Micr ocytic, MCV 80.6. Known iron deficiency anemia. Receiving additional 1 unit RBC transfusion. So far no bowel movement. Discussed with her given the need for anticoagulation, as well as worsening anemia and additional assessment by CT abdomen pelvis to look for any additional source of bleed including retroperitoneal. CT obtained, results appreciated, discussed with the rad radiology. No obvious source of bleeding. Still cannot exclude intraintestinal bleeding, but no retroperitoneal bleed. Incidental finding of abrupt caliber change in the right upper quadrant mid small bowel with medications distention of the short segment of upstream small bowel. Possible partial obstruction, but alternatively could be given something like a muscle spasm. Monitor for as well. She does not have signs of SBO. No abdominal pain. Continue cautiously heparin drip. Follow blood counts tonight. High risk of bleeding, risk of thrombosis with PE, NSTEMI. Discussed with surgery. Plans for prep tomorrow for additional evaluation by endoscopy. (2) NSTEMI (non-ST elevated myocardial infarction): Additional RBC transfusion. Heparin drip with monitoring PTT, reassess hemoglobin, high risk of thrombosis, high risk of life-threatening bleeding. Complete heparin drip and may be able to discontinue. Further management considerations following endoscopic evaluation. Monitor on telemetry. Atorvastatin. Her heart rates have been running slow, in the 50s, noted about her. (3) Pulmonary embolism: Heparin drip, monitoring. Further management considerations following endoscopic evaluation tomorrow, consideration of continuation of anticoagulation if bleeding source can be identified and managed, versus consideration of other options. Reassess blood counts. At risk of bleeding. Hemoccult requested, so far has not had a BM. (4) Chest pain: Resolved, noted NSTEMI, PE, additional work-up and management as above. Lipase noted unremarkable. (5) COPD (chronic obstructive pulmonary disease): Chronic COPD, currently does not appear to be in exacerbation. Normally on 2 L nasal cannula oxygen. (6) Dark stools: As above. Reports started after iron supplementation. Does have iron deficiency anemia. States couple years back had upper and lower endoscopy, st ates upper endoscopy was unremarkable. 2 polyps in the lower endoscopy. Check Hemoccult. Monitor hemoglobin. (7) CHF (congestive heart failure): Symptoms consistent with CHF in the past, back in May with exacerbation it seems, has been improving with edema in her lower extremities down, orthopnea with improvement, but still prefers elevating head of bed. On Lasix. TTE noted with unfortunately poor quality study, discussed with cardiology, requesting limited TTE with contrast. LV systolic function normal. NT proBNP noted 1775, although may be also related secondary to chronic lung disease. (8) HTN (hypertension): History of hypertension, although states after being started on Lasix blood pressures were more in 100s-100 teens systolic, but currently blood pressure appears to be high again. Currently slightly better. Monitor blood pressures to help optimize control. (9) GERARDO (acute kidney injury): With some improvement, creatinine 1. Denies any NSAID use. Possibility of some mild degree of CKD with noted creatinine 1.1 back in June 2021 as well as in August 2018. Monitor creatinine. Plan Aspirin allergy: Listed aspirin allergy, states that in the past had a reaction with swelling around her eyes, feeling unwell when she took a larger dose of aspirin. She states has been tolerating well small dose of 81 mg aspirin. He is agreeable to continue without any concerns. Discussed with cardiology and surgery. Cardiology, surgery documentation revie mon. Attestations Medical Necessity Statement*: Continue admission for assessment and management of NSTEMI, PE, acute anemia, requiring anticoagulation, with acute anemia, suspected slow GI bleed, at risk of life-threatening bleeding with need for anticoagulation. Diagnoses Iron deficiency anemia D50.9 NSTEMI (non-ST elevated myocardial infarction) I21.4 Pulmonary embolism I26.99 Chest pain R07.9 COPD (chronic obstructive pulmonary disease) J44.9 Dark stools R19.5 CHF (congestive heart failure) I50.9 HTN (hypertension) I10 GERARDO (acute kidney injury) N17.9
[2022-08-07 17:54] LABS: Hematocrit 26.3 % (37.0-47.0); Retic Production Index 1.18; Reticulocyte % 1.8 % (0.5-2.0)
[2022-08-07 17:56] LABS: LAB Peripheral Smear Sent for Review
[2022-08-07 18:09] LABS: Lactate Dehydrogenase 218 U/L (135-214)
[2022-08-07] MEDS: polyethylene glycol 3350 Pkt 17 gm PO ×7 (19:06→22:21)
[2022-08-07 19:22] LABS: Partial Thromboplastin Time 62.3 SECONDS (23.9-36.7)
[2022-08-07] MEDS: ondansetron 2 mg/ML SDV 2 mL 4 MG IVP (19:31)
[2022-08-07 20:43] LABS: Hemoglobin 9.1 g/dL (11.5-15.3)
[2022-08-07] MEDS: heparin drip 25,000 UNIT/500 ML PREMIX 15 UNIT IV (22:21)
[2022-08-08] VITALS (12 sets, daily range): BP systolic 84–172; BP diastolic 36–89; PULSE 54–77; RESP 14–28; TEMP 36.3–37.1; O2SAT 92–97
[2022-08-08 01:03] LABS: Partial Thromboplastin Time 54.5 SECONDS (23.9-36.7)
[2022-08-08] MEDS: heparin 5,000 unit/mL INJ 1 mL IV ×2 (01:26→23:31)
[2022-08-08] MEDS: polyethylene glycol 3350 Pkt 17 gm PO ×7 (03:09→06:08)
[2022-08-08 04:45] LABS: Basophils # 0.1 10^3/uL (0.0-0.1); Basophils % 0.7 %; Eosinophils # 0.4 10^3/uL (0.0-0.8); Eosinophils % 4.3 %; Hematocrit 31.3 % (37.0-47.0); Hemoglobin 9.3 g/dL (11.5-15.3); Lymphocytes # 2.6 10^3/uL (0.8-4.8); Lymphocytes % 26.8 %; Mean Corpuscular HGB Conc 29.7 g/dL (30.0-36.0); Mean Corpuscular Hemoglobin 23.9 pg (28.0-34.0); Mean Corpuscular Volume 80.5 fl (81-99); Mean Platelet Volume 10.7 fL (7.4-10.4); Monocytes # 0.8 10^3/uL (0.2-0.9); Monocytes % 8.5 %; Nucleated Red Blood Cells % 0.2 %; Platelet Count 353 10^3/cmm (130-400); Red Blood Count 3.89 10^6/uL (4.1-5.3); Red Cell Distribution Width 17.2 % (12.1-15.1); White Blood Count 9.5 10^3/uL (4.0-10.0)
[2022-08-08 05:07] LABS: Alanine Aminotransferase 8 U/L (0-33); Albumin Level 4.1 g/dL (3.5-5.2); Alkaline Phosphatase 113 U/L (35-105); Anion Gap 14.1 (5-19); Aspartate Amino Transferase 17 U/L (0-32); Blood Urea Nitrogen 15 mg/dL (8-23); Calcium 9.2 mg/dL (8.5-10.5); Carbon Dioxide 32 mmol/L (22-29); Chloride 99 mmol/L (98-107); Creatinine Clr Calc Pharmacy 41.6245; Glucose 85 mg/dL (65-115); Osmolality Calculated 292 mOsm/kg (285-295); Potassium 4.1 mmol/L (3.5-5.1); Sodium 141 mmol/L (136-145); Total Bilirubin 1.2 mg/dL (0.15-1.2); Total Protein 7.1 g/dL (6.6-8.7)
[2022-08-08] MEDS: sodium chloride 0.9% 1,000 ML 30 ML IV (05:30)
--- NOTE | 2022-08-08 07:59 | ANES.PREANE2 ---
Pre-Anesthetic Assessment Height/Weight: Height 1.57 m Weight 80.513 kg Temp Pulse Resp BP Pulse Ox O2 Del Method O2 Flow Rate 98.7 F 77 22 H 147/71 96 Room Air 2 08/08/22 03:46 08/08/22 03:59 08/08/22 03:46 08/08/22 03:46 08/08/22 03:46 08/08/22 03:46 08/07/22 20:00 Preop Diagnosis: anemia Operation Date: 08/08/22 09:00 Proposed Procedures p EGD(Not Applicable) - Darlin Henrandez MD s Colonoscopy(Not Applicable) - Darlin Hernandez MD Familial anesthetic complications: none Was Beta Max taken within 24 hours: N/A Was Clonidine taken within 24 hours: N/A Last intake: Intake Drank miralax at 0700 Last Liquid Date 08/08/22 Last Liquid Time 07:30 Last Solid Date 08/06/22 Social No alcohol and No tobacco former smoker Exam alert, oriented x 3, clear to auscultation bilaterally and regular rate & rhythm diminished Airway Mallampati: Class II Dentition: false Pulmonary COPD, PE in R subsegmental lung CV/HEM Anemia, Stable Angina, Congestive Heart Failure (Ef 655) and Myocardial Infarction (NTEMI) Mild mvr and pvr NSTEMI and PE so 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 Needs to be solved before possibly placing any stents fe Anesthetic Plan ASA status: 4 Anesthesia: MAC Risk of > 500 ml blood loss (7ml/kg in children): No Medications/Allergies Home Medications Medication Instructions Recorded Confirmed Last Taken Type aspirin 81 mg tablet,delayed 81 mg PO DAILY #90 tabs 12/18/20 08/05/22 08/04/22 Rx release (Adult Low Dose Aspirin) multivitamin 1 tab PO DAILY 07/26/21 08/05/22 08/04/22 History betamethasone dipropionate 0.05 % 1 applic topical BID #45 grams 10/19/21 08/05/22 Unknown Rx topical ointment triamcinolone acetonide 0.1 % 1 applic topical BID #80 grams 11/11/21 08/05/22 Unknown Rx topical ointment mupirocin 2 % topical ointment 1 applic topical BID 2 weeks #15 11/29/21 08/05/22 Unknown Rx grams atorvastatin 80 mg tablet 80 mg PO DAILY #90 tabs 12/20/21 08/05/22 Unknown Rx pantoprazole 40 mg tablet,delayed 40 mg PO BID #180 tabs 04/28/22 08/05/22 08/04/22 Rx release furosemide 40 mg tablet 40 mg PO DAILY 30 days #90 tabs 05/31/22 08/05/22 08/05/22 Rx oxygen #1 ea 05/31/22 08/05/22 Unknown Rx potassium chloride 10 mEq 10 meq PO DAILY #90 caps 05/31/22 08/05/22 08/04/22 Rx capsule,extended release Ventolin HFA 90 mcg/actuation 2 puff inhalation Q4H PRN 06/21/22 08/05/22 Unknown Rx aerosol inhaler (albuterol sulfate) shortness of breath or wheezing #18 grams iron sucrose 200 mg iron/10 mL 200 mg IV Q7D 08/05/22 08/05/22 Unknown History intravenous solution (Venofer) Allergies Allergy/AdvReac Type Severity Reaction Status Date / Time aspirin Allergy Unknown unknown Verified 08/03/22 11:30 Sulfa (Sulfonamide Allergy Unknown unknown Verified 08/03/22 11:30 Antibiotics) Current Medications Generic Name Dose Route Start Last Admin Trade Name Freq PRN Reason Stop Dose Admin Aspirin 81 mg 08/05/22 14:40 08/07/22 09:48 Aspirin 81 Mg Ec Tablet PO 81 mg DAILY CLAIRE Administration Atorvastatin Calcium 80 mg 08/06/22 09:00 08/07/22 09:49 Atorvastatin 40 Mg Tablet PO 80 mg DAILY CLAIRE Administration Denture Adhesive 1 each 08/05/22 20:45 08/05/22 20:53 Efferdent Effervescent DENTAL 1 each PRN PRN Administration dentures Furosemide 40 mg 08/06/22 09:00 08/07/22 09:50 Furosemide 40 Mg Tablet PO 40 mg DAILY CLAIRE Administration Heparin Sodium (Porcine) 0 unit 08/06/22 20:48 08/08/22 01:26 Heparin 5,000 Unit/Ml Inj 1 Ml IV 1,600 unit PRN PRN Administration Heparin weight-base protocol Protocol Sodium Chloride 1,000 mls @ 30 mls/hr 08/08/22 06:00 08/08/22 05:30 Sodium Chloride 0.9% IV 08/09/22 05:59 30 mls/hr .Q24H ONE Administration Heparin Sodium/Sodium Chloride 25,000 unit in 500 mls @ 0 mls/hr 08/06/22 21:00 08/07/22 22:21 Heparin Drip IV 9.28 unit/kg/hr .Q0M CLAIRE 15 mls/hr Administration Protocol Per Protocol Ondansetron HCl 4 mg 08/05/22 16:23 08/07/22 19:31 Ondansetron 2 Mg/Ml Sdv 2 Ml IVP 4 mg Q8H PRN Administration vomiting, or N/V if npo Pantoprazole Sodium 40 mg 08/06/22 09:30 08/07/22 21:20 Pantoprazole 40 Mg Sdv IVP 40 mg Q12H CLAIRE Administration Potassium Chloride 10 meq 08/06/22 09:00 08/07/22 09:50 Potassium Chloride Er 10 Meq Tablet PO 10 meq DAILY CLAIRE Administration PFSH Anesthesia Medical History Bilateral carotid artery stenosis Colon polyps COPD (chronic obstructive pulmonary disease) Dark stools Diverticulosis Hiatal hernia HTN (hypertension) Hyperlipidemia associated with type 2 diabetes mellitus Presence of intrathecal pump Ventricular hypertrophy Surgical History H/O cataract extraction H/O: hysterectomy Hx of appendectomy Family History Mother CAD (coronary artery disease), Onset Age: 70 Cancer Dementia Sister Diabetes Denies family history of Clotting disorder Chronic kidney disease (CKD) Suicide Anesthesia complication Bleeding disorder Lung disease Stroke Social History Smoking and tobacco status: former smoker Alcohol intake: never Substance/Drug Use: never Female Reproductive History Spontaneous abortions: No Data Anesthesia 08/08/22 03:56 08/08/22 03:56 Short CBC 08/06/22 08/07/22 08/07/22 Range/Units 21:20 03:37 03:37 WBC 8.2 (4.0-10.0) 10^3/uL Hgb 8.1 L 7.2 L (11.5-15.3) g/dL Hct 28.6 L 25.3 L 26.3 L (37.0-47.0) % MCV 80.6 L (81-99) fl Plt Count 320 290 (130-400) 10^3/cmm Neut % (Auto) 60.5 % Neut # (Auto) 4.94 (1.8-7.7) 10^3/uL 08/07/22 08/08/22 Range/Units 20:37 03:56 WBC 9.5 (4.0-10.0) 10^3/uL Hgb 9.1 L 9.3 L (11.5-15.3) g/dL Hct 31.3 L (37.0-47.0) % MCV 80.5 L (81-99) fl Plt Count 353 (130-400) 10^3/cmm Neut % (Auto) 59.0 % Neut # (Auto) 5.60 (1.8-7.7) 10^3/uL BMP 08/07/22 08/08/22 03:37 03:56 Sodium 142 141 Potassium 4.2 4.1 Chloride 101 99 Carbon Dioxide 31 H 32 H BUN 17 15 Creatinine 1.0 H 1.1 H Glucose 97 85 Calcium 8.3 L 9.2 Liver Function 08/07/22 08/08/22 Range/Units 03:37 03:56 Total Bilirubin 1.0 1.2 (0.15-1.2) mg/dL AST 10 17 (0-32) U/L ALT < 5 8 (0-33) U/L Alkaline Phosphatase 82 113 H (35-105) U/L Albumin 3.4 L 4.1 (3.5-5.2) g/dL Blood Bank 08/06/22 07:07 Blood Type A Positive Rho(D) Type Positive Antibody Screen Negative Coags 08/07/22 08/07/22 08/07/22 03:37 10:37 18:36 APTT 104.9 H 95.0 H 62.3 H 08/08/22 00:35 APTT 54.5 H Microbiology 08/07/22 16:00 Occult Blood (FIT) - Final Stool - Stool Aspirate Cardiac Studies: Echocardiogram 08/05/22 Echocardiogram Limited Views 08/06/22 Sestamibi Stress Test (Cardiology) 01/11/22 Holter Monitor 06/17/19
[2022-08-08 08:04] LABS: Partial Thromboplastin Time 69.4 SECONDS (23.9-36.7)
--- NOTE | 2022-08-08 08:21 | PC.NURSE ---
pt taken to EGD on heparin drip at 17 cc an hr
--- NOTE | 2022-08-08 09:40 | PM.PN ---
Subjective Subjective: Patient is doing well. No chest pain. Vitals/I&O/Wt Last Vital Signs Temp 97.5 F L 08/08/22 08:21 Pulse 57 L 08/08/22 08:21 Resp 16 08/08/22 08:21 BP 172/89 08/08/22 08:21 Pulse Ox 97 08/08/22 08:21 O2 Del Method Room Air 08/08/22 08:21 O2 Flow Rate 2 08/07/22 20:00 08/07/22 08/08/22 08/08/22 22:59 06:59 14:59 Intake Total 1290.25 / 2130.25 1380 / 3510.25 Balance 1290.25 / 2130.25 1380 / 3510.25 Weight last 48 hrs Weight 177 lb 8 oz Weight 179 lb 1.6 oz Physical Exam Narrative: GENERAL: Patient is alert, awake and oriented x3. [] NECK: No jugular vein distension. [] HEENT: No cyanosis. No icterus. No pallor. [] HEART: Regular S1 and S2. No murmur, rub or gallop. [] LUNGS: Clear to auscultate bilaterally. [] CENTRAL NERVOUS SYSTEM: Grossly nonfocal. [] EXTREMITIES: Lower extremities with no edema Data 08/09/22 05:40 08/09/22 05:40 Micro: Microbiology 08/07/22 16:00 Occult Blood (FIT) - Final Stool - Stool Aspirate A&P Assessment and plan (1) NSTEMI (non-ST elevated myocardial infarction): Continue aspirin and heparin. Had AVM cauterization/clipping today. Plan for stress test tomorrow. NPO past midnight. If no significant ischemia, will do medical management. (2) Pulmonary embolism: Continue anticoagulation. If hemoglobin stays stable, we will continue with anticoagulation long-term. If she continues having drop in hemoglobin, she may benefit from IVC filter placement. We will monitor and patient for the next 1 to 2 days. (3) Chest pain: Stable at this time (4) COPD (chronic obstructive pulmonary disease): Management per primary team (5) Dark stools: On iron supplementation. (6) Iron deficiency anemia: (7) CHF (congestive heart failure): ECHO shows normal LV systolic function (8) HTN (hypertension): Plan AVMs treated today. Will monitor. Hemoglobin over the next 1 to 2 days. Stable, will need long-term anticoagulation. Plan for stress test tomorrow that will determine need for coronary angiogram. Attestations Medical Necessity Statement*: Care expected to cross 2 midnights. Coding Level of Care Code Acute Code for g Fwd Diagnoses NSTEMI (non-ST elevated myocardial infarction) I21.4 Pulmonary embolism I26.99 Chest pain R07.9 COPD (chronic obstructive pulmonary disease) J44.9 Dark stools R19.5 Iron deficiency anemia D50.9 CHF (congestive heart failure) I50.9 HTN (hypertension) I10
--- NOTE | 2022-08-08 11:49 | SUR.PREOP ---
1043 heparin was stopped at this time per anesthesia verbal order. unable to stop on MAY due to medication being held when patient orders were transferred to GI Lab.
[2022-08-08 13:20] LABS: Partial Thromboplastin Time 35.6 SECONDS (23.9-36.7)
--- NOTE | 2022-08-08 14:10 | PC.NURSE ---
family called and updated about the pt still in gi lab. they verbalizes understanding. they said they will call back this evening.
--- NOTE | 2022-08-08 14:58 | PC.NURSE ---
pt came back from GI lab post egd/colonoscopy Notified Dr that pt Heparin drip was stopped in GI lab at 1046am. Procedure was done around 1 pm after PTT came back. Asked Hospitalist when to restart her hep drip. Dr De Paz telephone order read back to restart the drip 2 hrs after.
--- NOTE | 2022-08-08 15:33 | PC.SOCIAL ---
IMM Update Pg 2 of IMM updated. Copy left @ bedside as patient is in surgery and Copy dated, initialed and placed in chart.
--- NOTE | 2022-08-08 16:32 | ANE.PACU2 ---
Inpatient post-anesthesia follow up: Airway intact: Yes Vital signs: Temperature 97.3 F Pulse Rate 54 Respiratory Rate 18 Blood Pressure 112/45 Pulse Oximetry 97 Oxygen Delivery Me thod [ Nasal Cannula Current Rate & Del eliazar] Oxygen Delivery Me thod Nasal Cannula Oxygen Flow Rate [ Current Rate 2 & Delivery] Oxygen Flow Rate 2 Fraction of Inspir ed Oxygen Hydration adequate: Yes Nausea and vomiting: Yes Pain level: 1 Mental status: Baseline
[2022-08-08] MEDS: heparin drip 25,000 UNIT/500 ML PREMIX 17 UNIT IV (17:27)
[2022-08-08] MEDS: pantoprazole 40 mg SDV IVP (20:31)
--- NOTE | 2022-08-08 21:03 | P.PN_ITS ---
Subjective Subjective: Pending colonoscopy she states she is doing okay. No nausea or vomiting. No abdominal pain. No chest pain. Vitals/I&O/Wt Last Vital Signs Temp 98 F 08/08/22 19:34 Pulse 60 08/08/22 19:34 Resp 28 H 08/08/22 19:34 BP 137/71 08/08/22 19:34 Pulse Ox 96 08/08/22 19:34 O2 Del Method Nasal Cannula 08/08/22 16:00 O2 Flow Rate 2 08/08/22 15:44 08/08/22 08/08/22 08/08/22 06:59 14:59 22:59 Intake Total 1380 / 3510.25 500 / 500 Balance 1380 / 3510.25 500 / 500 Weight last 48 hrs Weight 80.513 kg Weight 81.238 kg Physical Exam Const: COMMON NORMALS: patient oriented x3 and alert GENERAL APPEARANCE: c ooperative ORIENTATION/CONSCIOUSNESS: Yes awake HENMT: COMMON NORMALS: oropharynx normal OTHER: NC Neck/C-Spine: COMMON NORMALS: no JVD Resp: COMMON NORMALS: normal respiratory effort and clear to auscultation bilaterally AUSCULTATION: clear to auscultation bilaterally and diminished lung sounds (Mildly) Cardio: COMMON NORMALS: no JVD, regular rhythm, S1 normal heart sound present, S2 normal heart sound present and No murmurs present (Cardio) RHYTHM: regular rhythm HEART SOUNDS: S1 normal heart sound present and S2 normal heart sound present GI: COMMON NORMALS: Normal to inspection, nondistended, normoactive bowel sounds present, Soft to palpation and non-tender PALPATION: Yes Soft to palpation Extremity: COMMON NORMALS: no joint enlargement and no pedal edema GENERAL: Yes edema (Mild) Neuro: COMMON NORMALS: patient oriented x3 and moves all extremities SENSORIUM/ORIENTATION: Yes alert Skin: COMMON NORMALS: no rashes or lesions noted GENERAL SKIN EXAM: no rashes or lesions noted Data 08/08/22 03:56 08/08/22 03:56 Micro: Microbiology 08/07/22 16:00 Occult Blood (FIT) - Final Stool - Stool Aspirate A&P Assessment and plan (1) Iron deficiency anemia: Suspected GI bleeding. Discussed with her results of CT scan, no evidence of retroperitoneal bleed. She denies any symptoms of bowel obstruction. Discussed with surgery. 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 Discussed also with cardiology. No guarantee that they may not be more AVMs, although hopefully the lines in the colon and take care of. We will reassess her blood counts again in the morning. Heparin as per surgery request held for 2 hours, resumed without bolus as per discussion with RN. Requiring anticoagulation due to PE. At risk of additional bleeding. Hemoglobin noted 9.3 after transfusion yesterday. Platelets 353. Additionally noted peripheral smear with microscopic hypochromic anemia with anisopoikilocytosis. No equivalents. Haptoglobin not low. No evidence of hemolysis. Incidental finding of abrupt caliber change in the right upper quadrant mid small bowel with medications distention of the short segment of upstream small bowel. Possible partial obstruction, but alternatively could be given something like a muscle spasm. (2) Pulmonary embolism: Heparin drip, monitoring. Further consideration depending on hemoglobin levels. If concerns of additional AVM/bleeding, consideration may be given to IVC filter if not tolerant of anticoagulation. Further management considerations following endoscopic evaluation tomorrow, consideration of continuation of anticoagulation if bleeding source can be identified and managed, versus consideration of other options. Reassess blood counts. At risk of bleeding. (3) NSTEMI (non-ST elevated myocardial infarction): Further consideration of treatment options depending on follow-up hemoglobin levels. Consideration of angiography versus continued trial of medical management. Heparin drip with monitoring PTT, reassess hemoglobin, high risk of thrombosis, high risk of life-threatening bleeding. Monitor on telemetry. Atorvastatin. Her heart rates have been running slow, in the 50s, noted about her. (4) Chest pain: Resolved, noted NSTEMI, PE, additional work-up and management as above. Lipase noted unremarkable. (5) COPD (chronic obstructive pulmonary disease): Chronic COPD, currently does not appear to be in exacerbation. Normally on 2 L nasal cannula oxygen. (6) Dark stools: As above. Reports started after iron supplementation. Does have iron deficiency anemia. States couple years back had upper and lower endoscopy, states upper endoscopy was unremarkable. 2 polyps in the lower endoscopy. Check Hemoccult. Monitor hemoglobin. (7) CHF (congestive heart failure): Symptoms consistent with CHF in the past, back in May with exacerbation it seems, has been improving with edema in her lower extremities down, orthopnea with improvement, but still prefers elevating head of bed. On Lasix. TTE noted with unfortunately poor quality study, discussed with cardiology, requesting limited TTE with contrast. LV systolic function normal. NT proBNP noted 177, although may be also related secondary to chronic lung disease. (8) HTN (hypertension): History of hypertension, although states after being started on Lasix blood pressures were more in 100s-100 teens systolic, but currently blood pressure appears to be high again. Currently slightly better. Monitor blood pressures to help optimize control. (9) GERARDO (acute kidney injury): With some improvement, creatinine 1. Denies any NSAID use. Possibility of some mild degree of CKD with noted creatinine 1.1 back in June 2021 as well as in August 2018. Monitor creatinine. Plan Aspirin allergy: Listed aspirin allergy, states that in the past had a reaction with swelling around her eyes, feeling unwell when she took a larger dose of aspirin. She states has been tolerating well small dose of 81 mg aspirin. He is agreeable to continue without any concerns. Discussed with cardiology and surgery. Cardiology, surgery documentation reviewed. Attestations Medical Necessity Statement*: Continue admit assessment and management of acute blood loss anemia, GI bleeding, in a lady with NSTEMI, PE, at high risk of deterioration and life- threatening complications. Diagnoses Iron deficiency anemia D50.9 Pulmonary embolism I26.99 NSTEMI (non-ST elevated myocardial infarction) I21.4 Chest pain R07.9 COPD (chronic obstructive pulmonary disease) J44.9 Dark stools R19.5 CHF (congestive heart failure) I50.9 HTN (hypertension) I10 GERARDO (acute kidney injury) N17.9
[2022-08-08 23:11] LABS: Partial Thromboplastin Time 49.1 SECONDS (23.9-36.7)
[2022-08-09] VITALS (11 sets, daily range): BP systolic 120–158; BP diastolic 61–67; PULSE 48–74; RESP 12–21; TEMP 36.6–37.1; O2SAT 94–98
[2022-08-09 06:02] LABS: Basophils # 0.1 10^3/uL (0.0-0.1); Basophils % 0.9 %; Eosinophils # 0.4 10^3/uL (0.0-0.8); Eosinophils % 5.4 %; Hematocrit 31.1 % (37.0-47.0); Hemoglobin 8.7 g/dL (11.5-15.3); Lymphocytes # 2.1 10^3/uL (0.8-4.8); Lymphocytes % 25.2 %; Mean Corpuscular Hemoglobin 23.1 pg (28.0-34.0); Mean Corpuscular Volume 82.5 fl (81-99); Mean Platelet Volume 10.1 fL (7.4-10.4); Monocytes # 0.8 10^3/uL (0.2-0.9); Monocytes % 9.5 %; Neutrophils # 4.79 10^3/uL (1.8-7.7); Neutrophils % 58.4 %; Nucleated Red Blood Cells % 0 %; Platelet Count 336 10^3/cmm (130-400); Red Blood Count 3.77 10^6/uL (4.1-5.3); Red Cell Distribution Width 17.7 % (12.1-15.1); White Blood Count 8.2 10^3/uL (4.0-10.0)
[2022-08-09 06:26] LABS: Alanine Aminotransferase 8 U/L (0-33); Albumin Level 3.8 g/dL (3.5-5.2); Alkaline Phosphatase 99 U/L (35-105); Anion Gap 10.9 (5-19); Aspartate Amino Transferase 18 U/L (0-32); Blood Urea Nitrogen 13 mg/dL (8-23); Carbon Dioxide 33 mmol/L (22-29); Chloride 101 mmol/L (98-107); Globulin 2.6 g/dL (1.3-4.6); Glucose 86 mg/dL (65-115); Osmolality Calculated 291 mOsm/kg (285-295); Potassium 3.9 mmol/L (3.5-5.1); Sodium 141 mmol/L (136-145); Total Bilirubin 0.5 mg/dL (0.15-1.2); Total Protein 6.4 g/dL (6.6-8.7)
[2022-08-09 06:30] LABS: Partial Thromboplastin Time 85.2 SECONDS (23.9-36.7)
[2022-08-09] MEDS: regadenoson 0.4 Mg/5 ml Syringe IVP (07:28)
--- NOTE | 2022-08-09 08:00 | ECG_ITS ---
[facility] Test Date: 2022-08-09 Pat Name: Ayah aSnchez Department: Room: 108 Gender: Female Inpatient Services Rn: Devilynne Cisneros : 1945 Requested By: Sloan De Paz Order Number: [id number] Landon MD: Wojciech Siddiqui M.D. Interpretive Statements NAME OF STUDY: LEXISCAN SESTAMIBI STRESS TEST INDICATION: [Chest Pain, ] Procedure: At the baseline, the blood pressure was 150/70 mmHg with a heart rate of 54 bpm. The electrocardiogram showed sinus bradycardia, normal axis with normal ST and T's. The Lexiscan was infused over a period of 20 seconds. A total of 0.4 mg of Lexiscan was infused. The stress phase was continued for a total of 5 minutes. Heart rate was at the end of stress phase was 72 bpm and a blood pressure of 132/68 mmHg. The EKG at the peak infusion revealed normal sinus rhythm with diffuse ST depressions. Sestamibi was injected 20 seconds after the Lexiscan infusion. Blood pressure at the end of recovery phase was 131/63 mmHg with a heart rate of 65 bpm. Conclusion: 1. Diffuse ST depressions noted with Lexiscan injection. 2. No Lexiscan induced chest pain or cardiac arrhythmia. 3. Normal blood pressure and heart rate response. 4. Sestamibi/sestamibi perfusion scan pending; see separate report. Electronically Signed On 08-23-2022 17:31:14 CDT by Wojciech Siddiqui M.D. [id number]
--- NOTE | 2022-08-09 08:00 | NMCV_ITS ---
NM floresita perf SPECT r/s* [id number] Ayah Sanchez Age: 76 Gender: F : 1945 Exam Date: 08/09/2022 06:40 Ordering Phys: Sloan De Paz MD Technologist: HENRY Kam Exam Location: [facility] Indications: CHEST PAIN STRESS TEST Please see separate stress test report in [facility] for full findings IMAGE PROTOCOL Rest/Stress 1 Lexiscan Day Radiopharmaceutical Dose (mCi) Administration Site Administered by Rest: Tc-99m 10.7 IV HENRY Voss Sestamibi Stress:Tc-99m 32.9 IV HENRY Brown Sestamibi Rest: 09-Aug-2022 60 Discovery 630 Stress: 09-Aug-2022 30 Discovery 630 0.4mg Lexiscan. Supine position only as patient was unable to lay prone. SPECT RESULTS Technical Quality: Excellent Raw Data Analysis: Normal Image Corrections: No attenuation or motion correction applied Summed Stress Score: 3 Summed Rest Score: 10 Summed Difference Score: 0 PERFUSION FINDINGS There is a medium sized area of reduced radiotracer uptake in the inferolateral and anterolateral alanis that resolves on stress images. This is consistent with attenuation artifact. No evidence of ischemia is seen. FUNCTIONAL RESULTS (calculated via Gated SPECT) Stress Image LV EF (%): 49 Stress EDV (mL):118 TID: 1.85 Stress ESV (mL):60 FUNCTIONAL FINDINGS: LV systolic function is borderline low. Elevated TID ratio. IMPRESSIONS 1. Attenuation artifact seen in the left circumflex artery territory. No evidence of ischemia 2. LV systolic function is borderlow low. TID ratio is elevated. Wojciech Siddiqui MD (Electronically Signed) Final Date: 09 August 2022 12:03 S
[2022-08-09] MEDS: atorvastatin 40 mg Tablet 80 MG PO (08:47)
[2022-08-09] MEDS: aspirin 81 mg EC Tablet PO (08:47)
[2022-08-09] MEDS: FUROsemide 40 mg Tablet PO (08:47)
[2022-08-09] MEDS: potassium chloride ER 10 mEq Tablet PO (08:48)
[2022-08-09] MEDS: pantoprazole 40 mg SDV IVP ×2 (08:48→21:17)
--- NOTE | 2022-08-09 12:08 | PM.PN ---
Subjective Subjective: Patient is a overall feeling well. Stress test did not reveal significant ischemia. Hemoglobin has very slight decrease. Vitals/I&O/Wt Last Vital Signs Temp 97.9 F 08/09/22 08:00 Pulse 64 08/09/22 08:37 Resp 18 08/09/22 08:37 BP 143/62 08/09/22 08:00 Pulse Ox 94 08/09/22 08:37 O2 Del Method Nasal Cannula 08/09/22 08:37 O2 Flow Rate 2 08/09/22 08:37 08/08/22 08/09/22 08/09/22 22:59 06:59 14:59 Intake Total 980 / 980 239.867 / 1219.867 120 / 120 Balance 980 / 980 239.867 / 1219.867 120 / 120 Weight last 48 hrs Weight 186 lb 9.6 oz Weight 177 lb 8 oz Physical Exam Narrative: GENERAL: Patient is alert, awake and oriented x3. [] NECK: No jugular vein distension. [] HEENT: No cyanosis. No icterus. No pallor. [] HEART: Regular S1 and S2. No murmur, rub or gallop. [] LUNGS: Clear to auscultate bilaterally. [] CENTRAL NERVOUS SYSTEM: Grossly nonfocal. [] EXTREMITIES: Lower extremities with no edema Data 08/10/22 01:43 08/10/22 01:43 A&P Assessment and plan (1) NSTEMI (non-ST elevated myocardial infarction): Stress test negative for ischemia. Continue anticoagulation. Hemoglobin has very slight decrease. Renal function is slightly worse. Recommended to have good fluid intake today. (2) Pulmonary embolism: Continue anticoagulation for now. If stays stable, can be discharged home on oral anticoagulation. (3) Chest pain: Stable at this time (4) COPD (chronic obstructive pulmonary disease): Management per primary team (5) Dark stools: On iron supplementation. (6) Iron deficiency anemia: (7) CHF (congestive heart failure): ECHO shows normal LV systolic function (8) HTN (hypertension): Plan Stress test is negative for ischemia. Hemoglobin is stable. We will recheck tomorrow morning and if stable, can be discharged home on oral anticoagulation. If has a significant drop, will need IVC filter placement. Attestations Medical Necessity Statement*: Care expected to cross 2 midnights. Coding Level of Care Code Acute Code for Chg Fwd Diagnoses NSTEMI (non-ST elevated myocardial infarction) I21.4 Pulmonary embolism I26.99 Chest pain R07.9 COPD (chronic obstructive pulmonary disease) J44.9 Dark stools R19.5 Iron deficiency anemia D50.9 CHF (congestive heart failure) I50.9 HTN (hypertension) I10
[2022-08-09] MEDS: heparin drip 25,000 UNIT/500 ML PREMIX 17 UNIT IV (12:30)
[2022-08-09 13:13] LABS: Partial Thromboplastin Time 51.9 SECONDS (23.9-36.7)
--- NOTE | 2022-08-09 15:44 | W.PM.OPSUD ---
Surgery/Procedure H&P Update DATE OF PROCEDURE: August 08, 2022 DATE H&P PERFORMED: 08/05/21 CHANGES TO PREVIOUS DOCUMENTATION: None PREOP DIAGNOSIS: anemia PRIMARY INDICATION FOR PROCEDURE: Anemia PLANNED PROCEDURE: Operation Date: 08/08/22 09:00 Proposed Procedures p EGD(Not Applicable) - Darlin Hernandez MD s Colonoscopy(Not Applicable) - Darlin Hernandez MD
--- NOTE | 2022-08-09 18:17 | P.PN_ITS ---
Subjective Subjective: States she is doing all right. Had a mild bandlike sensation during stress test, but no chest pain, no persistent symptoms. Vitals/I&O/Wt Last Vital Signs Temp 97.9 F 08/09/22 08:00 Pulse 55 L 08/09/22 16:00 Resp 18 08/09/22 16:00 BP 131/61 08/09/22 16:00 Pulse Ox 94 08/09/22 16:00 O2 Del Method Nasal Cannula 08/09/22 16:00 O2 Flow Rate 2 08/09/22 08:37 08/09/22 08/09/22 08/09/22 06:59 14:59 22:59 Intake Total 239.867 / 1219.867 698.317 / 698.317 Balance 239.867 / 1219.867 698.317 / 698.317 Weight last 48 hrs Weight 84.64 kg Weight 80.513 kg Physical Exam Const: COMMON NORMALS: patient oriented x3 and alert GENERAL APPEARANCE: cooperative ORIENTATION/CONSCIOUSNESS: Yes awake HENMT: COMMON NORMALS: oropharynx normal OTHER: NC Neck/C-Spine: COMMON NORMALS: no JVD Resp: COMMON NORMALS: normal respiratory effort and clear to auscultation bilaterally AUSCULTATION: clear to auscultation bilaterally Cardio: COMMON NORMALS: no JVD, regular rhythm, S1 normal heart sound present, S2 normal heart sound present and No murmurs present (Cardio) RHYTHM: regular rhythm HEART SOUNDS: S1 normal heart sound present and S2 normal heart sound present GI: COMMON NORMALS: Normal to inspection, nondistended, normoactive bowel sounds present, Soft to palpation and non-tender PALPATION: Yes Soft to palpation Extremity: COMMON NORMALS: no joint enlargement and no pedal edema GENERAL: Yes edema (Mild) Neuro: COMMON NORMALS: patient oriented x3 and moves all extremities SENSORIUM/ORIENTATION: Yes alert Skin: COMMON NORMALS: no rashes or lesions noted GENERAL SKIN EXAM: no rashes or lesions noted Data 08/09/22 05:40 08/09/22 05:40 A&P Assessment and plan (1) Iron deficiency anemia: Noted additionally some worsening anemia, hemoglobin down to 8.7 from 9.3 yesterday. Platelets 336. Discussed with her reassessment in the morning. Discussed with cardiology. Consideration regarding IVC filter. Continue anticoagulation for now. Close monitoring due to risk of rebleeding. Discussed with her follow-up with gastroenterology given AV malformations, possibility of additional AV malformations, consideration of further assessment by capsule endoscopy. Close monitoring with PTT with heparin drip. Reassessment blood counts requested. Suspected GI bleeding. Discussed with her results of CT scan, no evidence of retroperitoneal bleed. She denies any symptoms of bowel obstruction. Discussed with surgery. 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 Additionally noted peripheral smear with microscopic hypochromic anemia with anisopoikilocytosis. No equivalents. Haptoglobin not low. No evidence of hemolysis. Incidental finding of abrupt caliber change in the right upper quadrant mid small bowel with medications distention of the short segment of upstream small bowel. Possible partial obstruction, but alternatively could be given something like a muscle spasm. (2) Pulmonary embolism: As per discussion with cardiology, continue anticoagulation, reassess blood counts at risk of rebleeding. If doing well may continue anticoagulation. Question of IVC filter. Heparin drip, monitoring. Further consideration depending on hemoglobin levels. If concerns of additional AVM/bleeding, consideration may be given to IVC filter if not tolerant of anticoagulation. Further management considerations following endoscopic evaluation tomorrow, consideration of continuation of anticoagulation if bleeding source can be identified and managed, versus consideration of other options. Reassess blood counts. At risk of bleeding. (3) NSTEMI (non-ST elevated myocardial infarction): Status post stress test this morning. Attenuation artifact seen in LCx artery territory. No evidence of ischemia. Discussed with cardiology. Cardiology commendations reviewed. Further consideration of treatment options depending on follow-up hemoglobin levels. Consideration of angiography versus continued trial of medical management. Heparin drip with monitoring PTT, reassess hemoglobin, high risk of thrombosis, high risk of life-threatening bleeding. Monitor on telemetry. Atorvastatin. Her heart rates have been running slow, in the 50s, noted about her. (4) Chest pain: Resolved, noted NSTEMI, PE, additional work-up and management as above. Lipase noted unremarkable. (5) COPD (chronic obstructive pulmonary disease): Chronic COPD, currently does not appear to be in exacerbation. Normally on 2 L nasal cannula oxygen. (6) Dark stools: As above. Reports started after iron supplementation. Does have iron deficiency anemia. States couple years back had upper and lower endoscopy, states upper endoscopy was unremarkable. 2 polyps in the lower endoscopy. (7) CHF (congestive heart failure): Symptoms consistent with CHF in the past, back in May with exacerbation it seems, has been improving with edema in her lower extremities down, orthopnea with improvement, but still prefers elevating head of bed. On Lasix. TTE noted with unfortunately poor quality study, discussed with cardiology, requesting limited TTE with contrast. LV systolic function normal. NT proBNP noted 1774, although may be also related secondary to chronic lung disease. (8) HTN (hypertension): History of hypertension, although states after being started on Lasix blood pressures were more in 100s-100 teens systolic, but currently blood pressure appears to be high again. Currently slightly better. Monitor blood pressures to help optimize control. (9) GERARDO (acute kidney injury): Creatinine 1.3. BUN is 13. Continues on home dose Lasix. Recheck renal func tion. Denies any NSAID use. Possibility of some mild degree of CKD with noted creatinine 1.1 back in June 2021 as well as in August 2018. Monitor creatinine. Plan Aspirin allergy: Listed aspirin allergy, states that in the past had a reaction with swelling around her eyes, feeling unwell when she took a larger dose of aspirin. She states has been tolerating well small dose of 81 mg aspirin. He is agreeable to continue without any concerns. Attestations Medical Necessity Statement*: Continue admission for assessment management of lady with acute anemia, requiring anticoagulation due to PE Diagnoses Iron deficiency anemia D50.9 Pulmonary embolism I26.99 NSTEMI (non-ST elevated myocardial infarction) I21.4 Chest pain R07.9 COPD (chronic obstructive pulmonary disease) J44.9 Dark stools R19.5 CHF (congestive heart failure) I50.9 HTN (hypertension) I10 GERARDO (acute kidney injury) N17.9
--- NOTE | 2022-08-09 19:39 | PC.NURSE ---
Ptt was ordered to be drawn at 1850 as patient is on a heparin drip. Lab has not drawn this yet. Nurse called lab and they said they would check on this. Nurse will follow up
[2022-08-09 20:17] LABS: Partial Thromboplastin Time 68.5 SECONDS (23.9-36.7)
[2022-08-10] VITALS (9 sets, daily range): BP systolic 122–173; BP diastolic 64–78; PULSE 51–60; RESP 13–22; O2SAT 87–96
[2022-08-10 02:01] LABS: Basophils # 0.1 10^3/uL (0.0-0.1); Basophils % 0.8 %; Eosinophils # 0.4 10^3/uL (0.0-0.8); Eosinophils % 5.5 %; Hematocrit 29.4 % (37.0-47.0); Hemoglobin 8.4 g/dL (11.5-15.3); Lymphocytes # 2.2 10^3/uL (0.8-4.8); Lymphocytes % 27.8 %; Mean Corpuscular HGB Conc 28.6 g/dL (30.0-36.0); Mean Corpuscular Hemoglobin 23.4 pg (28.0-34.0); Mean Corpuscular Volume 81.9 fl (81-99); Mean Platelet Volume 10.5 fL (7.4-10.4); Monocytes # 0.9 10^3/uL (0.2-0.9); Monocytes % 11.2 %; Neutrophils # 4.23 10^3/uL (1.8-7.7); Neutrophils % 54.2 %; Nucleated Red Blood Cells % 0 %; Platelet Count 313 10^3/cmm (130-400); Red Blood Count 3.59 10^6/uL (4.1-5.3); Red Cell Distribution Width 18.2 % (12.1-15.1); White Blood Count 7.8 10^3/uL (4.0-10.0)
[2022-08-10 02:23] LABS: Partial Thromboplastin Time 91.8 SECONDS (23.9-36.7)
[2022-08-10 02:24] LABS: Alanine Aminotransferase 7 U/L (0-33); Albumin Level 3.6 g/dL (3.5-5.2); Alkaline Phosphatase 86 U/L (35-105); Aspartate Amino Transferase 13 U/L (0-32); Blood Urea Nitrogen 14 mg/dL (8-23); Calcium 8.5 mg/dL (8.5-10.5); Carbon Dioxide 31 mmol/L (22-29); Chloride 103 mmol/L (98-107); Globulin 2.5 g/dL (1.3-4.6); Glucose 91 mg/dL (65-115); Osmolality Calculated 294 mOsm/kg (285-295); Sodium 142 mmol/L (136-145); Total Bilirubin 0.5 mg/dL (0.15-1.2); Total Protein 6.1 g/dL (6.6-8.7)
[2022-08-10 02:29] LABS: Creatinine Clr Calc Pharmacy 33.4164
--- NOTE | 2022-08-10 08:11 | PM.PN ---
Subjective Subjective: Hemoglobin is stable stable. No chest pain. Vitals/I&O/Wt Last Vital Signs Temp 98.7 F 08/09/22 23:47 Pulse 52 L 08/10/22 07:40 Resp 14 08/10/22 07:40 BP 122/64 08/10/22 07:40 Pulse Ox 94 08/10/22 07:40 O2 Del Method Nasal Cannula 08/09/22 23:47 O2 Flow Rate 2 08/09/22 23:47 08/09/22 08/10/22 08/10/22 22:59 06:59 14:59 Intake Total 1830 / 2528.317 229.5 / 2757.817 Balance 1830 / 2528.317 229.5 / 2757.817 Weight last 48 hrs Weight 186 lb 9.6 oz Physical Exam Narrative: GENERAL: Patient is alert, awake and oriented x3. [] NECK: No jugular vein distension. [] HEENT: No cyanosis. No icterus. No pallor. [] HEART: Regular S1 and S2. No murmur, rub or gallop. [] LUNGS: Clear to auscultate bilaterally. [] CENTRAL NERVOUS SYSTEM: Grossly nonfocal. [] EXTREMITIES: Lower extremities with no edema Data 08/10/22 01:43 08/10/22 01:43 A&P Assessment and plan (1) NSTEMI (non-ST elevated myocardial infarction): (2) Pulmonary embolism: Qualifiers: Pulmonary embolism type: multiple subsegmental (without acute cor pulmonale) Qualified Code(s): I26.94 - Multiple subsegmental pulmonary emboli without acute cor pulmonale (3) Chest pain: (4) COPD (chronic obstructive pulmonary disease): Qualifiers: COPD type: emphysema Emphysema type: unspecified Qualified Code(s): J43.9 - Emphysema, unspecified (5) Dark stools: (6) Iron deficiency anemia: (7) CHF (congestive heart failure): (8) HTN (hypertension): Qualifiers: Hypertension type: primary hypertension Qualified Code(s): I10 - Essential (primary) hypertension Plan Patient is stable. Continue anticoagulation. Stress test was negative for ischemia. No further cardiac work-up. Patient is stable to discharge from cardiology standpoint Attestations Medical Necessity Statement*: Care expected to cross 2 midnights. Coding Level of Care Code Acute Code for Chg Fwd Diagnoses NSTEMI (non-ST elevated myocardial infarction) I21.4 Pulmonary embolism I26.94 Pulmonary embolism type: multiple subsegmental (without acute cor pulmonale) Chest pain R07.9 COPD (chronic obstructive pulmonary disease) J43.9 COPD type: emphysema Emphysema type: unspecified Dark stools R19.5 Iron deficiency anemia D50.9 CHF (congestive heart failure) I50.9 HTN (hypertension) I10 Hypertension type: primary hypertension
[2022-08-10] MEDS: pantoprazole 40 mg SDV IVP (09:04)
[2022-08-10] MEDS: aspirin 81 mg EC Tablet PO (09:04)
[2022-08-10] MEDS: atorvastatin 40 mg Tablet 80 MG PO (09:04)
[2022-08-10] MEDS: potassium chloride ER 10 mEq Tablet PO (09:04)
[2022-08-10 09:10] LABS: Partial Thromboplastin Time 77.2 SECONDS (23.9-36.7)
--- NOTE | 2022-08-10 11:46 | PC.SOCIAL ---
Imm update Imm updated with patient at bedside. Copy of page 2 provided. Patient verbalized understanding. Copy in chart initialed, dated and timed.
[2022-08-10 14:52] LABS: Partial Thromboplastin Time 52.8 SECONDS (23.9-36.7)
--- NOTE | 2022-08-10 15:16 | PM.DCS ---
Discharge Providers Date of Admission: 08/05/22 12:36 Date of Discharge: August 10, 2022 Attending Provider at Admission: Astrid Pettit Attending Provider at Discharge: Astrid Pettit Primary Care Provider: Regulo Kelley, DO Diagnoses at Discharge Discharge Diagnosis (1) NSTEMI (non-ST elevated myocardial infarction): Status: Acute (2) Pulmonary embolism: Status: Acute (3) Chest pain: Status: Acute (4) COPD (chronic obstructive pulmonary disease): Status: Acute (5) Dark stools: Status: Acute (6) Iron deficiency anemia: Status: Acute (7) CHF (congestive heart failure): Status: Acute (8) HTN (hypertension): Status: Acute Reason for Visit Reason for Visit: CHEST PAIN Brief History: Pleasant 76-year-old lady with history of COPD, states back in May had a health event where she seems to be much worse, at that time requiring 4 L of oxygen, at that time also with lower extremity edema, orthopnea, was started on Lasix, prior to that also with hypertension, but since then blood pressure has been she states doing better, softer even to 100s to 1 teens systolic and says her heart rate has been slower as well down to 50s-60s.? She states that with Lasix her lower extremity edema had improved quite significantly.? She still prefers to sleep with head of bed elevated. She used to be a smoker in the past smoking for about 60 years.? Recently also treated for cholesterol, although since May stopped taking atorvastatin. Back in January 2022 she had a stress test IMPRESSIONS ?1.? Myocardial perfusion imaging revealing small to moderate area of slightly ?decreased tracer uptake in the inferolateral, anterolateral and inferior ?regions with a subtle area of reversibility suggesting myocardial scarring with ?a very small area of ischemia. ?2.? Normal LV ejection fraction 65%. ?3.? LV wall motion analysis revealing hypokinetic LV apex ?4.? Normal LV volume ?5.? Elevated? transient ischemic dilatation r [id number] atio, may suggest ?endocardial ischemia.? Clinical correlation is recommended Arrangements were being made for her to follow-up with cardiology on outpatient basis but this has not yet occurred with an appointment set up for 08/15. She comes into the hospital for evaluation due to chest tightness and bandlike distribution lower chest as well as upper chest/lower neck which woke her up this morning and she was also nauseated.? She also noticed recently her heart rates becoming elevated when she stands and especially if she walks.? She had not noticed that rest was providing any relief.? She did get relief when she got nitroglycerin and EMS.? Currently not having symptoms.? In ER noted with sinus bradycardia, heart rates 50s.? On 2 L nasal cannula oxygen.? Respiratory rate 18-24. PE is found on CTA chest. Additionally noted abnormality NT-proBNP 1775 same similar to prior, but does have mildly elevated baseline troponin with positive delta 2-hour troponin rise from 64 up to 111. Hospital Course Hospital Course She received treatment for NSTEMI, including anticoagulation both for NSTEMI and PE, with positive troponin delta, chest pain, suspected CAD with previous abnormal stress test was assessed by cardiology. Had an echocardiogram, but very poor quality, required additional limited study with contrast. Remain chest pain-free. While anticoagulation developed acute anemia, received a unit RBC transfusion, was assessed by surgery with upper and lower endoscopy. No source of bleeding identified in the upper endoscopy, but found to have AVM in the cecum. Sessile polyp 3 mm x 3 mm in transverse colon, without intervention due to anticoagulation. Few small nonbleeding diverticuli were noted. Multiple sessile polyps hyperplastic in appearance noted in the distal colon, not bleeding. Underwent treatment with cauterization, clipping of 2 AVM lesions. Please see detailed report and pictures. Additionally CT abdomen pelvis obtained incidentally seen abrupt caliber change in mid small intestine and right upper quadrant, but has had no abdominal pain or signs of obstruction. No retroperitoneal bleeding. LDH, haptoglobin and peripheral smear obtained as well, without suggestion of hemolysis. Resumed on anticoagulation with following up with cardiology with additional monitoring of hemoglobin to assess whether he may continue aspiration or bleeding IVC filter. Limited contrast TTE with normal ejection fraction, she additionally underwent stress testing as she remains chest pain-free, without findings of acute ischemia did not require assessment by angiography. Subsequently maintaining hemoglobin better, but still with some mild decrease, 8.7 yesterday, 8.4 today. Discussed with cardiology for now is to continue anticoagulation, repeat additional blood counts on Monday, she also has an appointment to follow-up in clinic with Dr. Velarde on Monday. She does not wish to stay in the hospital any longer. She is aware of risk of bleeding, worsening anemia, states that she understands to seek medical attention immediately in case of concerning symptoms, which she states always will call ambulance for if needed. She is reluctant for follow-up with gastroenterology at the moment, please revisit with her as she would benefitfrom assessment. As discussed with her cannot exclude AVM malformations elsewhere, including STATOR WINDER, as such we discussed possibility of risk of bleeding being higher, consideration of additional assessment by MRI with contrast which she is agreeable to, requested contrast MRI and MRA. Discussed additionally consideration of warfarin as potential treatment of choice, noted, logistically this would be difficult for her, and she still prefers for not to start on Eliquis, pending MRI results and continue if no STATOR WINDER AVM noted. Additionally noted some mild fluctuation of creatinine, 1.1 on presentation, transiently with improvement, subsequently again up to 1.3-1.4. Possibly mild degree of GERARDO, versus possible CKD given she did have several values of creatinine 1.1 in the past. Please reassess renal function as well. Physical Exam Const: COMMON NORMALS: patient oriented x3 and alert GENERAL APPEARANCE: cooperative ORIENTATION/CONSCIOUSNESS: Yes awake HENMT: COMMON NORMALS: oropharynx normal Neck/C-Spine: COMMON NORMALS: no JVD Resp: COMMON NORMALS: normal respiratory effort and clear to auscultation bilaterally AUSCULTATION: clear to auscultation bilaterally Cardio: COMMON NORMALS: no JVD, regular rhythm, S1 normal heart sound present, S2 normal heart sound present and No murmurs present (Cardio) RHYTHM: regular rhythm HEART SOUNDS: S1 normal heart sound present and S2 normal heart sound present GI: COMMON NORMALS: Normal to inspection, nondistended, normoactive bowel sounds present, Soft to palpation and non-tender PALPATION: Yes Soft to palpation Extremity: COMMON NORMALS: no joint enlargement and no pedal edema Neuro: COMMON NORMALS: patient oriented x3 and moves all extremities SENSORIUM/ORIENTATION: Yes alert Skin: COMMON NORMALS: no rashes or lesions noted GENERAL SKIN EXAM: no rashes or lesions noted Discharge Data Studies Completed and Pending Completed Studies During Hospitalization Category Date Time Status CT abdomen pelvis wo con [id number] Stat Cat Scan 08/07/22 12:15 Completed CTA chest [CT angio chest PE protcl [id number]] Stat Cat Scan 08/05/22 11:17 Completed Cardiac Stress Test MIBI [Sestamibi Stress Test Request Exams 08/09/22 08:00 Draft ] Routine XR chest 1V portable [id number] Stat Exams 08/05/22 09:03 Completed NM floresita perf SPECT r/s* [id number] Routine Nuc Med 08/09/22 08:00 [place] [id number] Routine Ultrasound 08/07/22 11:12 Completed CV. echo complete* [id number] Routine Ultrasound 08/05/22 14:35 Completed CV. echo limited [id number] Routine Ultrasound 08/06/22 11:09 Completed Pending at discharge Category Date Time Status Cardiac Stress Test MIBI [Sestamibi Stress Test Request Exams 08/09/22 06:33 Ordered ] Routine Complete Blood Count w/Auto AM LABS Lab 08/11/22 04:00 Ordered Comprehensive Metabolic Panel AM LABS Lab 08/11/22 04:00 Ordered Radiology Impressions Chest X-Ray 08/05/22 09:03 IMPRESSION: 1. Cardiac enlargement with increased pulmonary vascularity. The pattern is unchanged. 2. No acute infiltrate identified. Chest CTA 08/05/22 11:17 IMPRESSION: 1. There is asymmetry of the density of the vessel indicative of some slow flow and subsegmental pulmonary thromboembolic sequela posterior basal segment of the right lower lobe. Overall no central saddle type embolus or evidence of right heart strain is appreciated with the right ventricular to left ventricular ratio of approximately 0.6. 2. There is some improved aeration overall with chronic air trapping and some scarring type appearance with some patchy consolidation scarring residual associated of the posterior basal segment of the right lower lobe. Some superimposed inflammation could also present in this fashion. ADDENDUM: 08/05/22 [id number] THIS REPORT CONTAINS FINDINGS THAT MAY BE CRITICAL TO PATIENT CARE. The findings were verbally communicated via telephone conference at 12:25 PM CDT on 08/05/2022 with MURALI LAI. The findings were acknowledged and understood. Venous Duplex 08/07/22 11:12 IMPRESSION: No evidence of deep vein thrombosis. Abdomen/Pelvis CT 08/07/22 12:15 IMPRESSION: 1. No sign of intra-abdominal bleeding 2. Abrupt caliber change in the right upper quadrant mid small bowel with mild gaseous dilation of a short segment of upstream small bowel. Possible partial obstruction. 3. Incidental findings above. ADDENDUM: 08/07/22 2908 THIS REPORT CONTAINS FINDINGS THAT MAY BE CRITICAL TO PATIENT CARE. The findings were verbally communicated via telephone conference with ASTRID PETTIT at 1:25 PM CDT on 08/07/2022. The findings were acknowledged and understood. Laboratory Results WBC 7.8 10^3/uL (4.0-10.0) 08/10/22 01:43 RBC 3.59 10^6/uL (4.1-5.3) L 08/10/22 01:43 Hgb 8.4 g/dL (11.5-15.3) L 08/10/22 01:43 Hct 29.4 % (37.0-47.0) L 08/10/22 01:43 MCV 81.9 fl (81-99) 08/10/22 01:43 MCH 23.4 pg (28.0-34.0) L 08/10/22 01:43 MCHC 28.6 g/dL (30.0-36.0) L 08/10/22 01:43 RDW 18.2 % (12.1-15.1) H 08/10/22 01:43 Plt Count 313 10^3/cmm (130-400) 08/10/22 01:43 MPV 10.5 fL (7.4-10.4) H 08/10/22 01:43 Neut % (Auto) 54.2 % 08/10/22 01:43 Lymph % (Auto) 27.8 % 08/10/22 01:43 [place] % (Auto) 11.2 % 08/10/22 01:43 Eos % (Auto) 5.5 % 08/10/22 01:43 Baso % (Auto) 0.8 % 08/10/22 01:43 Reticulocyte % (Auto) 1.8 % (0.5-2.0) 08/07/22 03:37 Neut # (Auto) 4.23 10^3/uL (1.8-7.7) 08/10/22 01:43 Lymph # (Auto) 2.2 10^3/uL (0.8-4.8) 08/10/22 01:43 [place] # (Auto) 0.9 10^3/uL (0.2-0.9) 08/10/22 01:43 Eos # (Auto) 0.4 10^3/uL (0.0-0.8) 08/10/22 01:43 Baso # (Auto) 0.1 10^3/uL (0.0-0.1) 08/10/22 01:43 Nucleated RBC % (auto) 0 % 08/10/22 01:43 Nucleated RBCs # 0.0 /100WBC 08/10/22 01:43 Peripher Smr Path Cons Sent for review 08/07/22 03:37 Retic Production Index 1.18 08/07/22 03:37 Haptoglobin 221.0 mg/L (30-200) H 08/07/22 03:37 PT 12.80 SECONDS (12.1-14.9) 08/05/22 08:45 INR 0.93 (0.8-1.2) 08/05/22 08:45 APTT 52.8 SECONDS (23.9-36.7) H 08/10/22 14:29 Sodium 142 mmol/L (136-145) 08/10/22 01:43 Potassium 4.0 mmol/L (3.5-5.1) 08/10/22 01:43 Chloride 103 mmol/L (98-107) 08/10/22 01:43 Carbon Dioxide 31 mmol/L (22-29) H 08/10/22 01:43 Anion Gap 12.0 (5-19) 08/10/22 01:43 BUN 14 mg/dL (8-23) 08/10/22 01:43 Creatinine 1.4 mg/dL (0.5-0.9) H 08/10/22 01:43 GFR Calculation Not Reportable 08/10/22 01:43 Glucose 91 mg/dL (65-115) 08/10/22 01:43 Calculated Osmolality 294 mOsm/kg (285-295) 08/10/22 01:43 Calcium 8.5 mg/dL (8.5-10.5) 08/10/22 01:43 Total Bilirubin 0.5 mg/dL (0.15-1.2) 08/10/22 01:43 AST 13 U/L (0-32) 08/10/22 01:43 ALT 7 U/L (0-33) 08/10/22 01:43 Alkaline Phosphatase 86 U/L (35-105) 08/10/22 01:43 Lactate Dehydrogenase 218 U/L (135-214) H 08/07/22 03:37 Troponin T Baseline 64 ng/L (0-10) H 08/05/22 08:45 Troponin T 120 Minute 111.2 ng/L (0-10) H 08/05/22 10:30 Delta Troponin T 47.2 ABS# (0-10) H* 08/05/22 10:30 NT-Pro-B Natriuret Pep 1775 pg/mL (0-450) H 08/05/22 08:45 Total Protein 6.1 g/dL (6.6-8.7) L 08/10/22 01:43 Albumin 3.6 g/dL (3.5-5.2) 08/10/22 01:43 Globulin 2.5 g/dL (1.3-4.6) 08/10/22 01:43 Lipase 28 U/L (13-60) 08/05/22 08:45 Blood Type A Positive 08/06/22 07:07 Rho(D) Type Positive 08/06/22 07:07 Antibody Screen Negative 08/06/22 07:07 Crossmatch See Detail 08/06/22 07:07 Vitals Last Vital Signs Temp 98.7 F 08/09/22 23:47 Pulse 51 L 08/10/22 11:49 Resp 22 H 08/10/22 11:49 BP 145/70 08/10/22 11:49 Pulse Ox 96 08/10/22 11:49 O2 Del Method Nasal Cannula 08/10/22 11:49 O2 Flow Rate 2 08/10/22 08:20 Discharge Plan Discharge Patient Disposition: Home Condition: Fair Prescriptions: New apixaban 5 mg (74 tabs) tablets,dose pack See Rx Instructions .ROUTE .COMPLEX Qty: 74 0RF Rx Instructions: orally per package directions, 10mg BID for 7 days then 5mg BID Continued multivitamin Tablet 1 tab PO DAILY pantoprazole 40 mg tablet,delayed release (DR/EC) 40 mg PO BID Qty: 180 1RF atorvastatin 80 mg tablet 80 mg PO DAILY Qty: 90 2RF potassium chloride 10 mEq capsule, extended release 10 meq PO DAILY Qty: 90 3RF aspirin [Adult Low Dose Aspirin] 81 mg tablet,delayed release (DR/EC) 81 mg PO DAILY Qty: 90 3RF betamethasone dipropionate 0.05 % ointment 1 applic topical BID Qty: 45 1RF Rx Instructions: to affected area on hand no more than 2 wks/mo triamcinolone acetonide 0.1 % ointment 1 applic topical BID Qty: 80 0RF Rx Instructions: apply to affected area no more than 2 weeks per month. not for face mupirocin 2 % ointment 1 applic topical BID 14 Days Qty: 15 0RF albuterol sulfate [Ventolin HFA] 90 mcg/actuation HFA aerosol inhaler 2 puff inhalation Q4H PRN (Reason: shortness of breath or wheezing) Qty: 18 5RF Venofer 200 mg iron/10 mL solution 200 mg IV Q7D Rx Instructions: administer over 30 mins Changed furosemide 40 mg tablet 40 mg PO DAILY PRN (Reason: Edema) 30 Days Qty: 90 3RF No Action (DME) oxygen See Rx Instructions .Route .MEDSUPPLY Qty: 1 0RF Rx Instructions: Please issue portable oxygen delivery system with [place], 3-4L oxygen requirement to maintain oxygen saturation at >90%. Will need lifetime treatment with oxygen. Discharge Orders: Discharge Order (Routine); Ordered 08/10/22 Ordered By: Astrid Pettit Other Ambulatory Orders: MR angio head wo con [id number] (Routine) Timeframe: 3 Days Facility: [facility] - Location: Radiology [facility] Ordered By: Astrid Pettit Complete Blood Count w/Auto (Routine) Timeframe: [id number] Location: Determined by Patient Ordered By: Astrid Pettit MR head wo/w con [id number] (Routine) Timeframe: 3 Days Facility: [facility] - Location: Radiology [facility] Ordered By: Astrid Pettit Referrals: Regulo Kelley, [Primary Care Provider] - 08/24/22 9:15 am (Please follow-up with Dr. Kelley on Monday, August 24 at 9:15P.M. If you have any questions or need to reschedule. Please call Also, [facility] Centralized Scheduling will contact you to schedule an MRI as outpatient. If you haven't heard from them by Monday. Please call ) Discharge Diet: Cardiac Patient Instructions: Apixaban (By mouth), Pulmonary Embolism (GEN), Arteriovenous Malformation (GEN), Iron Deficiency Anemia (GEN), CHF Stoplight, COPD Stoplight, GI Discharge Instructions Activity Restrictions/Additional Instructions: Please follow-up for blood count on Monday and follow-up with cardiology for reassessment of anemia. As per discussion if worsening anemia blood thinner will have to be stopped, with additional consideration of IVC filter. Please discuss with cardiology at the scheduled appointment on Monday. Follow-up also with your primary doctor. Please discuss again with your primary doctor regarding follow-up with gastroenterology for further assessment in case of persistent anemia with consideration of possible additional AV malformations elsewhere in the GI tract. Follow-up also regarding MRI of the brain to assess for any additional malformations in the brain. Please follow-up with your primary doctorfor consideration of additional assessment for hypercoagulability given family history of pulmonary embolism. You are also referred to hematology. In case you experience any bloody stools, dark black stools without oral iron, any lightheadedness, fainting, chest pain or pressure, progressive shortness of breath, or any other concerning symptoms seek medical attention immediately. Follow-up with your primary doctor also for reassessment of kidney function noted either mild acute kidney injury or a degree of chronic kidney disease. Avoid any NSAIDs like ibuprofen, Aleve. Continue to optimize cardiovascular risk factors with your primary doctor and clinical appeals auditor. Follow-up with your primary doctor and GI regarding incidentally noted caliber change in a segment mid small bowel on CT of the abdomen. Follow-up with your primary doctor regarding incidentally noted mild hepatic steatosis. Follow-up with your primary doctor for reassessment of some air trapping and scarring incidentally seen in your lungs on CT. Discharge Attestations Time Spent in Discharge Care*: greater than 30 min Quality Metrics Clinical Quality Measures [ No reported AMI, CVA or VTE this stay] Coding Level of Care Code 85023 Total time (in minutes) for Discharge: 50 Diagnoses NSTEMI (non-ST elevated myocardial infarction) I21.4 Pulmonary embolism I26.99 Chest pain R07.9 COPD (chronic obstructive pulmonary disease) J44.9 Dark stools R19.5 Iron deficiency anemia D50.9 CHF (congestive heart failure) I50.9 HTN (hypertension) I10
[2022-08-10] MEDS: apixaban 5 mg Tablet 10 MG PO (15:29)
--- NOTE | 2022-08-10 16:48 | PC.NURSE ---
Heparin is stopped per Dr. Valdivia's order at 15:28.
--- NOTE | 2022-08-10 18:02 | PC.NURSE ---
IV's removed from both the right forarm and left AC. Catheters intact, manual pressure held x 2 minutes, dressings applied. Patient tolerated well.
== END 2022-08-10 18:04 | disposition home health service (06) | DRG 280 ==
LOC: ER 09:35 → CSU 12:37
PROVIDERS: Surgery; Admitting Provider Internal Medicine; Emergency Provider Emergency Medicine; PCP Family Medicine; Visit Provider Internal Medicine
PROC: 0DJ08ZZ Inspection of Upper Intestinal Tract, Via Natural or Artificial Opening Endoscopic (ICD-10-PCS; CPT 43235; principal; 2022-08-08 09:00)
PROC: 0DJD8ZZ Inspection of Lower Intestinal Tract, Via Natural or Artificial Opening Endoscopic (ICD-10-PCS; CPT 45378; 2022-08-08 09:00)
DX: I21.4 Non-ST elevation (NSTEMI) myocardial infarction (principal); I26.99 Other pulmonary embolism without acute cor pulmonale; K55.21 Angiodysplasia of colon with hemorrhage; I13.0 Hypertensive heart and chronic kidney disease with heart failure and stage 1 through stage 4 chronic kidney disease, or unspecified chronic kidney disease; N17.9 Acute kidney failure, unspecified; J44.9 Chronic obstructive pulmonary disease, unspecified; D50.9 Iron deficiency anemia, unspecified; K63.5 Polyp of colon; K62.1 Rectal polyp; K57.30 Diverticulosis of large intestine without perforation or abscess without bleeding; Z79.82 Long term (current) use of aspirin; Z79.51 Long term (current) use of inhaled steroids; I50.9 Heart failure, unspecified; N18.2 Chronic kidney disease, stage 2 (mild); K44.9 Diaphragmatic hernia without obstruction or gangrene; E78.5 Hyperlipidemia, unspecified; Z87.891 Personal history of nicotine dependence; Z86.010 Personal history of colon polyps; Z99.81 Dependence on supplemental oxygen
CPT/HCPCS: 12345; 36415; 36430; 71045; 71275; 74176; 78452; 80053; 80503; 82274; 83010; 83615; 83690; 83880; 84484; 85014; 85018; 85025; 85045; 85049; 85610; 85730; 86850; 86900; 86920; 93005; 93017; 93306; 93308; 93970; 94760; 96372; 96374; 96376; 99285; A9500; C9113; J1644; J1650; J2405; J2704; J2785; J3490; J7030; P9040; Q9967

== ENCOUNTER → 2022-08-15 11:58 | Outpatient (BNVA) | payer MEDICARE, MEDICAID, SELFPAY | PROVIDERS: PCP Family Medicine; Visit Provider Internal Medicine Cardiovascular Disease | DX: D64.9 Anemia, unspecified (principal); N17.9 Acute kidney failure, unspecified; I10 Essential (primary) hypertension; J44.9 Chronic obstructive pulmonary disease, unspecified; I26.99 Other pulmonary embolism without acute cor pulmonale; D50.9 Iron deficiency anemia, unspecified; E78.2 Mixed hyperlipidemia; I65.23 Occlusion and stenosis of bilateral carotid arteries; Z87.891 Personal history of nicotine dependence | CPT/HCPCS: 99214 ==

== ENCOUNTER → 2022-08-16 15:20 | Outpatient (BNVA) | payer MEDICARE, MEDICAID, SELFPAY | PROVIDERS: PCP Family Medicine; Visit Provider Internal Medicine | DX: D64.9 Anemia, unspecified (principal) | CPT/HCPCS: 85025 ==

== ENCOUNTER → 2022-08-24 10:13 | Outpatient (BNVA) | payer MEDICARE, MEDICAID, SELFPAY | PROVIDERS: PCP Family Medicine; Visit Provider Family Medicine | DX: Q27.30 Arteriovenous malformation, site unspecified (principal); D64.9 Anemia, unspecified; N17.9 Acute kidney failure, unspecified | CPT/HCPCS: 80048; 85027 ==

== ENCOUNTER 2022-09-02 10:20 | Oncology outpatient (recurring) (ONCR) | payer MEDICARE, MEDICAID, SELFPAY | END 2022-09-02 23:59 | disposition home or self-care (01) | LOC: ONCMED 10:22 | PROVIDERS: PCP Family Medicine; Visit Provider Family Medicine | DX: Z53.9 Procedure and treatment not carried out, unspecified reason (principal) ==

== ENCOUNTER 2022-09-09 09:51 | Oncology outpatient (recurring) (ONCR) | payer MEDICARE, MEDICAID, SELFPAY ==
[2022-09-09 10:25] VITALS: BP 134/78; PULSE 81; RESP 20; TEMP 36.4; O2SAT 93
[2022-09-09] MEDS: sodium chloride 0.9% 250 ML 50 ML IV (10:43)
[2022-09-09] MEDS: iron sucrose 200 MG in sodium chloride 0.9% (100 ml) 100 ML 220 MG IV (11:05)
[2022-09-09 11:58] VITALS: BP 125/68; PULSE 84; RESP 20; TEMP 36.2; O2SAT 95
== END 2022-10-03 23:59 | disposition home or self-care (01) ==
PROVIDERS: PCP Family Medicine; Visit Provider Family Medicine
DX: D50.9 Iron deficiency anemia, unspecified (principal)
CPT/HCPCS: 96365; J1756; J7050

== ENCOUNTER 2022-09-11 04:04 | Observation (INO) | payer MEDICARE, MEDICAID, SELFPAY ==
[2022-09-11] VITALS (25 sets, daily range): BP systolic 114–171; BP diastolic 44–83; PULSE 54–93; RESP 14–20; TEMP 26–37; O2SAT 93–100; BMI 30.9
--- NOTE | 2022-09-11 04:09 | XRR_ITS ---
PROCEDURE INFORMATION: Exam: XR Chest Exam date and time: 09/11/2022 4:12 AM Age: 76 years old Clinical indication: Chest pressure; Patient HX: C/O chest pain. History of copd. ; Additional info: Cp TECHNIQUE: Imaging protocol: Radiologic exam of the chest. Views: 1 view. COMPARISON: 1. CR XR chest 1V portable [id number] 08/05/2022 9:[address] angio chest PE protcl [id number] 08/05/2022 11:32 AM FINDINGS: Lungs: Minimal likely emphysematous changes again noted. Pleural spaces: No pneumothorax. No pleural effusion. Heart/Mediastinum: The heart is enlarged for size, similar to prior exam. Bones/joints: Unremarkable. XR/XR chest 1V portable [id number] IMPRESSION: No acute cardiopulmonary abnormality identified.
--- NOTE | 2022-09-11 04:14 | ECG_ITS ---
[facility] Test Date: 2022-09-11 Pat Name: Ayah Sanchez Department: Room: Gender: Female Field Seismologist: : 1945 Requested By: Tez Newman Order Number: [id number] Landon MD: Eliel Velarde M.D. Measurements Intervals [place] Rate: 72 P: 49 IN: 130 QRS: 60 QRSD: 104 T: 120 QT: 306 QTc: 336 Interpretive Statements SINUS RHYTHM LEFT VENTRICULAR HYPERTROPHY AND ST-T CHANGE [VOLTAGE CRITERIA PLUS ST/T ABNORMALITY] INTERPRETATION BASED ON A DEFAULT AGE OF 40 YEARS Compared to ECG 08/05/2022 15:23:51 Sinus bradycardia no longer present ST (T wave) deviation still present Electronically Signed On 09-11-2022 9:43:52 CDT by Eleil Velarde M.D. [email or web address]
[2022-09-11 04:18] LABS: Basophils # 0.1 10^3/uL (0.0-0.1); Basophils % 0.7 %; Eosinophils # 0.6 10^3/uL (0.0-0.8); Eosinophils % 6.1 %; Hematocrit 24.5 % (37.0-47.0); Hemoglobin 6.8 g/dL (11.5-15.3); Lymphocytes # 2.9 10^3/uL (0.8-4.8); Lymphocytes % 29.2 %; Mean Corpuscular HGB Conc 27.8 g/dL (30.0-36.0); Mean Corpuscular Hemoglobin 22.9 pg (28.0-34.0); Mean Corpuscular Volume 82.5 fl (81-99); Mean Platelet Volume 10.8 fL (7.4-10.4); Monocytes # 0.9 10^3/uL (0.2-0.9); Monocytes % 9.4 %; Neutrophils # 5.26 10^3/uL (1.8-7.7); Neutrophils % 53.9 %; Nucleated Red Blood Cells % 0.2 %; Platelet Count 384 10^3/cmm (130-400); Red Blood Count 2.97 10^6/uL (4.1-5.3); Red Cell Distribution Width 17.8 % (12.1-15.1); White Blood Count 9.8 10^3/uL (4.0-10.0)
[2022-09-11 04:38] LABS: Troponin(5th) Baseline 41 ng/L (0-10)
[2022-09-11 04:44] LABS: Alanine Aminotransferase 11 U/L (0-33); Albumin Level 4.2 g/dL (3.5-5.2); Alkaline Phosphatase 109 U/L (35-105); Aspartate Amino Transferase 15 U/L (0-32); Blood Urea Nitrogen 13 mg/dL (8-23); Calcium 9.1 mg/dL (8.5-10.5); Carbon Dioxide 29 mmol/L (22-29); Chloride 95 mmol/L (98-107); Globulin 2.8 g/dL (1.3-4.6); Glucose 121 mg/dL (65-115); NT Pro B Type Natriuretic Pept 1401 pg/mL (0-450); Osmolality Calculated 283 mOsm/kg (285-295); Sodium 136 mmol/L (136-145); Total Bilirubin 0.2 mg/dL (0.15-1.2)
--- NOTE | 2022-09-11 04:52 | ED_ITS ---
Documented by User: Tze Lafleur DO 09/11/22 19:17 HPI - Chest Pain General: Chief Complaint: Chest Pain Stated Complaint: CP Time Seen by Provider: 09/11/22 04:09 Source: patient History of Present Illness: 76-year-old female with a history of COPD. She also has a recent diagnosis of PE for which she is on apixaban. She presents with chest discomfort. She has had nitroglycerin with some relief. Pain is essentially gone at this point. She has a little bit of tingling in her left arm. She has been short of breath with her PE. This was not significantly worse this morning. MD complaint: chest pain Onset (ago): hour(s) Timing of current episode: constant and now resolved Onset: awoke with symptoms Associated symptoms: Reports dyspnea; Deny abdominal pain, fever(s), nausea, palpitations or vomiting Review of Systems Const: Denies: fever(s) Card: Reports: chest pain; Denies: palpitations Resp: Reports: dyspnea; Denies: productive cough or non-productive cough GI: Denies: abdominal pain, nausea or vomiting PFSH ED PFSH: Medical History Bilateral carotid artery stenosis Colon polyps COPD (chronic obstructive pulmonary disease) Dark stools Diverticulosis Hiatal hernia HTN (hypertension) Hyperlipidemia associated with type 2 diabetes mellitus Presence of intrathecal pump Ventricular hypertrophy Surgical History H/O cataract extraction H/O: hysterectomy Hx of appendectomy Family History Mother CAD (coronary artery disease), Onset Age: 70 Cancer Dementia Sister Diabetes Denies family history of Clotting disorder Chronic kidney disease (CKD) Suicide Anesthesia complication Bleeding disorder Lung disease Stroke Social History Smoking and tobacco status: former smoker Alcohol intake: never Substance/Drug Use: never Female Reproductive History: Spontaneous abortions: No Physical Exam Const: GENERAL APPEARANCE: cooperative and ill appearing (Mildly); not frail appearing HENMT: COMMON NORMALS: normocephalic, atraumatic and Normal external nose present HEAD & SCALP: normocephalic and atraumatic FACE & SINUS: normal facial exam and face symmetric NOSE: Normal external nose present Eye: COMMON NORMALS: Equal, round and reactive pupils present and EOMs intact bilaterally PUPIL: Yes Equal, round and reactive pupils present Neck/C-Spine: GENERAL: Yes trachea midline Chest: CHEST: Yes Symmetrical chest wall rise Resp: COMMON NORMALS: normal respiratory effort, No retractions, No use of accessory muscles and clear to auscultation bilaterally AUSCULTATION: clear to auscultation bilaterally Cardio: COMMON NORMALS: regular rate and regular rhythm RATE: regular rate RHYTHM: regular rhythm GI: COMMON NORMALS: Normal to inspection, nondistended, normoactive bowel sounds present Extremity: COMMON NORMALS: no pedal edema Neuro: KIMBERLEE COMA SCALE: document GCS findings Kimberlee coma scale eye opening: Spontaneous Valliant coma scale verbal response: Orientated Kimberlee coma scale motor response: Obey commands Valliant coma scale total score: 15 SENSORY EXAM: Yes extremities (intact) Psych: COMMON NORMALS: speech normal SPEECH: Yes normal speech Skin: COMMON NORMALS: no rashes or lesions noted GENERAL SKIN EXAM: no rashes or lesions noted Course Vital Signs: Vital signs: Vital Signs Temperature 97.6 F 09/11/22 15:15 Pulse Rate 60 09/11/22 15:15 Respiratory Rate 16 09/11/22 15:15 Blood Pressure 150/75 09/11/22 15:15 Pulse Oximetry 97 09/11/22 15:15 Oxygen Delivery Me thod Room Air 09/11/22 15:09 Oxygen Flow Rate 2 09/11/22 14:42 MDM - Chest Pain Medical Decision Making 76-year-old female with chest discomfort. Chest discomfort is essentially resolved at this point. EKG on arrival shows sinus rhythm, with LVH. There is significant ST depression in 2 3 and aVF as well as anterior laterally. Hemoglobin is 6.8. White blood cell count is 9.8. Potassium is 3. Creatinine is 1.3. Chest x-ray is negative. There is no history of hematemesis or melena. I consulted hospitalist in regard to ST depression on EKG, chest discomfort, and hemoglobin of 6.8 in a patient with anticoagulants on board. She is concerned about the possibility of aortic dissection versus GI blood loss because of anemia present in the patient. We will crossmatch for 2 unit here, perform CTA of the chest abdomen pelvis, and consult surgery for potential EGD if needed. Lab Data 09/11/22 17:38 09/11/22 03:44 Radiology Impressions Chest X-Ray 09/11/22 04:09 IMPRESSION: No acute cardiopulmonary abnormality identified. Chest/Abdomen/Pelvis CTA 09/11/22 06:24 IMPRESSION: 1. No pulmonary embolism identified. 2. Enlargement of the main pulmonary artery which may be seen in patients with pulmonary hypertension. 3. No acute aortic abnormality identified. Laboratory Results WBC 9.8 10^3/uL (4.0-10.0) 09/11/22 03:44 RBC 2.97 10^6/uL (4.1-5.3) L 09/11/22 03:44 Hgb 6.8 g/dL (11.5-15.3) L 09/11/22 03:44 Hct 24.5 % (37.0-47.0) L 09/11/22 03:44 MCV 82.5 fl (81-99) 09/11/22 03:44 MCH 22.9 pg (28.0-34.0) L 09/11/22 03:44 MCHC 27.8 g/dL (30.0-36.0) L 09/11/22 03:44 RDW 17.8 % (12.1-15.1) H 09/11/22 03:44 Plt Count 384 10^3/cmm (130-400) 09/11/22 03:44 MPV 10.8 fL (7.4-10.4) H 09/11/22 03:44 Neut % (Auto) 53.9 % 09/11/22 03:44 Lymph % (Auto) 29.2 % 09/11/22 03:44 [place] % (Auto) 9.4 % 09/11/22 03:44 Eos % (Auto) 6.1 % 09/11/22 03:44 Baso % (Auto) 0.7 % 09/11/22 03:44 Neut # (Auto) 5.26 10^3/uL (1.8-7.7) 09/11/22 03:44 Lymph # (Auto) 2.9 10^3/uL (0.8-4.8) 09/11/22 03:44 [place] # (Auto) 0.9 10^3/uL (0.2-0.9) 09/11/22 03:44 Eos # (Auto) 0.6 10^3/uL (0.0-0.8) 09/11/22 03:44 Baso # (Auto) 0.1 10^3/uL (0.0-0.1) 09/11/22 03:44 Nucleated RBC % (auto) 0.2 % 09/11/22 03:44 Nucleated RBCs # 0.0 /100WBC 09/11/22 03:44 Sodium 136 mmol/L (136-145) 09/11/22 03:44 Potassium 3.0 mmol/L (3.5-5.1) L 09/11/22 03:44 Chloride 95 mmol/L (98-107) L 09/11/22 03:44 Carbon Dioxide 29 mmol/L (22-29) 09/11/22 03:44 Anion Gap 15.0 (5-19) 09/11/22 03:44 BUN 13 mg/dL (8-23) 09/11/22 03:44 Creatinine 1.3 mg/dL (0.5-0.9) H 09/11/22 03:44 GFR Calculation Not Reportable 09/11/22 03:44 Glucose 121 mg/dL (65-115) H 09/11/22 03:44 Calculated Osmolality 283 mOsm/kg (285-295) L 09/11/22 03:44 Calcium 9.1 mg/dL (8.5-10.5) 09/11/22 03:44 Total Bilirubin 0.2 mg/dL (0.15-1.2) 09/11/22 03:44 AST 15 U/L (0-32) 09/11/22 03:44 ALT 11 U/L (0-33) 09/11/22 03:44 Alkaline Phosphatase 109 U/L (35-105) H 09/11/22 03:44 Troponin T Baseline 41 ng/L (0-10) H 09/11/22 03:44 Troponin T 120 Minute 42.87 ng/L (0-10) H 09/11/22 06:01 Delta Troponin T 1.87 ABS# (0-10) 09/11/22 06:01 NT-Pro-B Natriuret Pep 1401 pg/mL (0-450) H 09/11/22 03:44 Total Protein 7.0 g/dL (6.6-8.7) 09/11/22 03:44 Albumin 4.2 g/dL (3.5-5.2) 09/11/22 03:44 Globulin 2.8 g/dL (1.3-4.6) 09/11/22 03:44 Blood Type A Positive 09/11/22 07:12 Rho(D) Type Positive 09/11/22 07:12 Antibody Screen Negative 09/11/22 07:12 Crossmatch See Detail 09/11/22 07:12 Critical Care Time Critical Care Time: Critical Care Time: Yes Total Critical Care Time: 35 Attestation: This case had a high probability of a clinically significant, sudden, or life threatening deterioration of this patient's condition which required my full and direct attention, intervention and personal management. Time is independent of any procedures performed Discharge Plan Discharge Patient Disposition: Admitted As Inpatient Admit Provider: Sloan De Paz Clinical Impression: Anemia, COPD (chronic obstructive pulmonary disease), Chest pain Condition: Stable Coding Level of Care Code ED Corporate Ethics Officer for Chg Fwd Documented by User: Eber Islas MD 09/11/22 08:48 HPI - Chest Pain General: Chief Complaint: Chest Pain Stated Complaint: CP Time Seen by Provider: 09/11/22 04:09 PFSH ED PFSH: Medical History Bilateral carotid artery stenosis Colon polyps COPD (chronic obstructive pulmonary disease) Dark stools Diverticulosis Hiatal hernia HTN (hypertension) Hyperlipidemia associated with type 2 diabetes mellitus Presence of intrathecal pump Ventricular hypertrophy Surgical History H/O cataract extraction H/O: hysterectomy Hx of appendectomy Family History Mother CAD (coronary artery disease), Onset Age: 70 Cancer Dementia Sister Diabetes Denies family history of Clotting disorder Chronic kidney disease (CKD) Suicide Anesthesia complication Bleeding disorder Lung disease Stroke Social History Smoking and tobacco status: former smoker Alcohol intake: never Substance/Drug Use: never Course Vital Signs: Vital signs: Vital Signs Temperature 97.6 F 09/11/22 15:15 Pulse Rate 60 09/11/22 15:15 Respiratory Rate 16 09/11/22 15:15 Blood Pressure 150/75 09/11/22 15:15 Pulse Oximetry 97 09/11/22 15:15 Oxygen Delivery Me thod Room Air 09/11/22 15:09 Oxygen Flow Rate 2 09/11/22 14:42 MDM - Chest Pain Medical Decision Making 76-year-old female with chest discomfort. Chest discomfort is essentially resolved at this point. EKG on arrival shows sinus rhythm, with LVH. There is significant ST depression in 2 3 and aVF as well as anterior laterally. Hemoglobin is 6.8. White blood cell count is 9.8. Potassium is 3. Creatinine is 1.3. Chest x-ray is negative. There is no history of hematemesis or melena. I consulted hospitalist in regard to ST depression on EKG, chest discomfort, and hemoglobin of 6.8 in a patient with anticoagulants on board. She is concerned about the possibility of aortic dissection versus GI blood loss because of anemia present in the patient. We will crossmatch for 2 unit here, perform CTA of the chest abdomen pelvis, and consult surgery for potential EGD if needed. Medical decision making: Dr Islas. I assumed patient care from Dr. Lafleur at the end of shift. I reviewed patient's medical records and also had a [id number] encounter with her. Patient had presented with chest pain that radiated down her left arm. At the time of ER arrival, patient was chest pain-free and remained so throughout her stay. However, work-up reveals severe anemia with hemoglobin of 6.8. She denies vomiting blood, urinating blood or passing blood in stool. She is currently on iron pills and received an iron infusion 2 days ago for chronic anemia. CTA chest/abdomen/pelvis is negative for any acute findings. 2 units of blood has been crossmatched. She will be admitted for transfusion and further evaluation. Case discussed with Dr. De Paz who accepted patient for admission. Lab Data 09/11/22 17:38 09/11/22 03:44 Radiology Impressions Chest X-Ray 09/11/22 04:09 IMPRESSION: No acute cardiopulmonary abnormality identified. Chest/Abdomen/Pelvis CTA 09/11/22 06:24 IMPRESSION: 1. No pulmonary embolism identified. 2. Enlargement of the main pulmonary artery which may be seen in patients with pulmonary hypertension. 3. No acute aortic abnormality identified. Laboratory Results WBC 9.8 10^3/uL (4.0-10.0) 09/11/22 03:44 RBC 2.97 10^6/uL (4.1-5.3) L 09/11/22 03:44 Hgb 6.8 g/dL (11.5-15.3) L 09/11/22 03:44 Hct 24.5 % (37.0-47.0) L 09/11/22 03:44 MCV 82.5 fl (81-99) 09/11/22 03:44 MCH 22.9 pg (28.0-34.0) L 09/11/22 03:44 MCHC 27.8 g/dL (30.0-36.0) L 09/11/22 03:44 RDW 17.8 % (12.1-15.1) H 09/11/22 03:44 Plt Count 384 10^3/cmm (130-400) 09/11/22 03:44 MPV 10.8 fL (7.4-10.4) H 09/11/22 03:44 Neut % (Auto) 53.9 % 09/11/22 03:44 Lymph % (Auto) 29.2 % 09/11/22 03:44 [place] % (Auto) 9.4 % 09/11/22 03:44 Eos % (Auto) 6.1 % 09/11/22 03:44 Baso % (Auto) 0.7 % 09/11/22 03:44 Neut # (Auto) 5.26 10^3/uL (1.8-7.7) 09/11/22 03:44 Lymph # (Auto) 2.9 10^3/uL (0.8-4.8) 09/11/22 03:44 [place] # (Auto) 0.9 10^3/uL (0.2-0.9) 09/11/22 03:44 Eos # (Auto) 0.6 10^3/uL (0.0-0.8) 09/11/22 03:44 Baso # (Auto) 0.1 10^3/uL (0.0-0.1) 09/11/22 03:44 Nucleated RBC % (auto) 0.2 % 09/11/22 03:44 Nucleated RBCs # 0.0 /100WBC 09/11/22 03:44 Sodium 136 mmol/L (136-145) 09/11/22 03:44 Potassium 3.0 mmol/L (3.5-5.1) L 09/11/22 03:44 Chloride 95 mmol/L (98-107) L 09/11/22 03:44 Carbon Dioxide 29 mmol/L (22-29) 09/11/22 03:44 Anion Gap 15.0 (5-19) 09/11/22 03:44 BUN 13 mg/dL (8-23) 09/11/22 03:44 Creatinine 1.3 mg/dL (0.5-0.9) H 09/11/22 03:44 GFR Calculation Not Reportable 09/11/22 03:44 Glucose 121 mg/dL (65-115) H 09/11/22 03:44 Calculated Osmolality 283 mOsm/kg (285-295) L 09/11/22 03:44 Calcium 9.1 mg/dL (8.5-10.5) 09/11/22 03:44 Total Bilirubin 0.2 mg/dL (0.15-1.2) 09/11/22 03:44 AST 15 U/L (0-32) 09/11/22 03:44 ALT 11 U/L (0-33) 09/11/22 03:44 Alkaline Phosphatase 109 U/L (35-105) H 09/11/22 03:44 Troponin T Baseline 41 ng/L (0-10) H 09/11/22 03:44 Troponin T 120 Minute 42.87 ng/L (0-10) H 09/11/22 06:01 Delta Troponin T 1.87 ABS# (0-10) 09/11/22 06:01 NT-Pro-B Natriuret Pep 1401 pg/mL (0-450) H 09/11/22 03:44 Total Protein 7.0 g/dL (6.6-8.7) 09/11/22 03:44 Albumin 4.2 g/dL (3.5-5.2) 09/11/22 03:44 Globulin 2.8 g/dL (1.3-4.6) 09/11/22 03:44 Blood Type A Positive 09/11/22 07:12 Rho(D) Type Positive 09/11/22 07:12 Antibody Screen Negative 09/11/22 07:12 Crossmatch See Detail 09/11/22 07:12 Discharge Plan Discharge Patient Disposition: Admitted As Inpatient Admit Provider: Sloan De Paz Clinical Impression: Anemia, COPD (chronic obstructive pulmonary disease), Chest pain Condition: Stable Coding Level of Care Code ED Corporate Ethics Officer for Veronica Perkins
--- NOTE | 2022-09-11 06:24 | CTR_ITS ---
PROCEDURE INFORMATION: Exam: CTA Chest without and With Contrast CTA Abdomen and Pelvis without and With Contrast Exam date and time: 09/11/2022 6:53 AM Age: 76 years old Clinical indication: Abdominal pain; Generalized; Prior surgery; Surgery date: 6+ months; Surgery type: Pain pump; Additional info: Chest pain, anemai, on anticoags TECHNIQUE: Imaging protocol: Computed tomographic angiography of the chest with contrast. Exam focused on the arteries. Computed tomographic angiography of the abdomen and pelvis with contrast. Exam focused on the arteries. 3D rendering (Not supervised by radiologist): MIP and/or 3D reconstructed images were created by the technologist. Radiation optimization: All CT scans at this facility use at least one of these dose optimization techniques: automated exposure control; mA and/or kV adjustment per patient size (includes targeted exams where dose is matched to clinical indication); or iterative reconstruction. Contrast material: OMNI 350; Contrast volume: 100 ml; Contrast route: INTRAVENOUS (IV); REPORTING DATA: Count of CT and Cardiac NM exams in prior 12 months: This patient has received 5 known CTs and 0 known cardiac nuclear medicine studies in the 12 months prior to the current study. COMPARISON: 1. CT abdomen pelvis wo con [id number] 08/07/2022 12:[address] angio chest [id number] 09/29/2016 2:20 PM RADIATION DOSE METRICS: Total DLP (mGy-cm): 966.12 FINDINGS: VASCULATURE: Pulmonary arteries: The main pulmonary artery measures up to 3.9 cm in diameter. No pulmonary embolism identified. Aorta: No acute thoracic aortic abnormality identified. Celiac trunk and mesenteric arteries: No occlusion or significant stenosis. Renal arteries: No occlusion or significant stenosis. Right iliac arteries: No occlusion or significant stenosis. Left iliac arteries: No occlusion or significant stenosis. CHEST: Lungs: Peripheral pulmonary scarring noted. Mixed density 2.4 cm mass in the medial basal segment of the left lower lobe with peripheral predominant calcification, similar to prior exams dating back to 2017 overall favored to be a benign process, possible hamartoma. Pleural spaces: Unremarkable. No pneumothorax. No pleural effusion. Heart: The heart is mildly enlarged for size. Coronary arteries: Coronary artery calcifications noted. ABDOMEN AND PELVIS: Liver: No mass. Gallbladder and bile ducts: Unremarkable. No calcified stones. No ductal dilation. Pancreas: Unremarkable. No mass. No ductal dilation. Spleen: Unremarkable. No splenomegaly. Adrenal glands: Unremarkable. No mass. Kidneys and ureters: Unremarkable. No solid mass. No hydronephrosis. Stomach and bowel: The stomach appears unremarkable. The small bowel loops are not abnormally dilated. The large bowel loops are not abnormally dilated. Colonic diverticulosis without signs of acute diverticulitis. Linear, 13 mm, metallic object noted within the cecum, possibly an old endoscopic clip. Appendix: The appendix is surgically absent. Intraperitoneal space: Unremarkable. No free air. No significant fluid collection. Urinary bladder: The urinary bladder is not well distended, therefore not well evaluated. Reproductive: Unremarkable as visualized. Lymph nodes: Calcified mediastinal and right hilar lymph nodes. Bones/joints: Exaggerated kyphotic curvature in the thoracic spine. Multiple vertebral body hemangiomas noted. Multilevel degenerative changes noted. Pain pump tubing in the thoracolumbar spinal canal noted. Soft tissues: Unremarkable. CT/[facility] [id number] IMPRESSION: 1. No pulmonary embolism identified. 2. Enlargement of the main pulmonary artery which may be seen in patients with pulmonary hypertension. 3. No acute aortic abnormality identified.
[2022-09-11 06:35] LABS: Troponin 5 2HR 42.87 ng/L (0-10)
[2022-09-11 06:46] LABS: Troponin 5 2HR Delta 1.87 ABS# (0-10)
[2022-09-11] MEDS: iohexol 350 mg/mL 500 mL Btl (per mL) IV (07:00)
[2022-09-11] MEDS: sodium chloride 0.9% 100 mL Bag 50 ML IV (08:49)
--- NOTE | 2022-09-11 09:31 | PC.NURSE ---
Temperature in the TAR at 9:09 is incorrect. It should be 97.8 not 77.8, I am unable to edit this in the TAR vital signs.
--- NOTE | 2022-09-11 10:41 | ECG_ITS ---
[facility] Test Date: 2022-09-11 Pat Name: Ayah Sanchez Department: Room: 276 Gender: Female Blunger Loader: : 1945 Requested By: Tez Newman Order Number: [id number] Landon MD: Eliel Velarde M.D. Measurements Intervals [place] Rate: 69 P: 60 SD: 128 QRS: 43 QRSD: 102 T: 96 QT: 429 QTc: 462 Interpretive Statements SINUS RHYTHM LEFT VENTRICULAR HYPERTROPHY AND ST-T CHANGE [VOLTAGE CRITERIA PLUS ST/T ABNORMALITY] Compared to ECG 09/11/2022 04:14:30 No significant changes Electronically Signed On 09-12-2022 8:12:18 CDT by Eliel Velarde M.D. [id number]
--- NOTE | 2022-09-11 12:29 | PM.HP ---
Providers/Chief Complaint Admitting Physician: Sloan De Paz Primary Care Provider: Regluo Kelley DO Chief Complaint: CP History of Present Illness Pleasant 76-year-old lady presented to ER earlier this morning with chest pain and was also found to have acute anemia hemoglobin 6.8. She underwent assessment with CT angiogram chest abdomen pelvis which showed no further PE, enlargement of the main pulm artery which may be seen in patients with pulmonary hypertension. No acute aortic abnormality. LVH with ST-T wave changes noted EKG, troponin with mild elevation in low 40s baseline and at 2 hours. NT proBNP 1401 which is lower than prior back in August 1774. She is currently chest pain-free. Requesting hospitalization for transfusion and rule out MA. Discussed initial observation on cardiac stepdown. Seeing her upstairs and on review of prior admission reveals she was recently hospitalized with finding of PE, started on anticoagulation, during that time also with cardiac assessment due to NSTEMI, underwent stress testing which was unremarkable, additionally with anemia, found to have AVMs on colonoscopy which were treated subsequently with stabilized blood count continued on Eliquis. She was reluctant to follow-up with GI at that time, referred for follow-up with PCP, cardiology, as well as with multiple AVM was referred for MRI assessment for any [employer] MGR AVMs. She tells me that she received an iron infusion on Monday. Eearly morning, about 2 AM on Monday started having large amount of dark-colored diarrhea. Review of Systems Const: Denies: fever(s), chills, body aches or malaise ENMT: Denies: throat pain Card: Reports: chest pain; Denies: edema, pre-syncope or dyspnea on exertion Resp: Denies: dyspnea, productive cough, change in phlegm color or hemoptysis GI: Reports: diarrhea (dark); Denies: abdominal pain, nausea, vomiting, constipation, hematochezia or melena : Denies: flank pain, urinary frequency or hematuria Musc: Denies: back pain, joint swelling or joint redness Skin/Breast: Denies: rash or new lesions Neuro: Denies: headache(s), numbness in extremities, weakness in extremities, confusion or seizure-like activity Medications/Allergies Home Medications Medication Instructions Recorded Confirmed Last Taken Type aspirin 81 mg tablet,delayed 81 mg PO DAILY #90 tabs 12/18/20 09/11/22 09/10/22 Rx release (Adult Low Dose Aspirin) multivitamin 1 tab PO DAILY 07/26/21 09/11/22 09/10/22 History atorvastatin 80 mg tablet 80 mg PO DAILY #90 tabs 12/20/21 09/11/22 09/10/22 Rx pantoprazole 40 mg tablet,delayed 40 mg PO BID #180 tabs 04/28/22 09/11/22 09/10/22 Rx release oxygen #1 ea 05/31/22 09/11/22 Unknown Rx potassium chloride 10 mEq 10 meq PO DAILY #90 caps 05/31/22 09/11/22 09/10/22 Rx capsule,extended release Ventolin HFA 90 mcg/actuation 2 puff inhalation Q4H PRN 06/21/22 09/11/22 09/10/22 Rx aerosol inhaler (albuterol sulfate) shortness of breath or wheezing #18 grams furosemide 40 mg tablet 40 mg PO DAILY PRN Edema 30 days 08/10/22 09/11/22 09/10/22 Rx #90 tabs apixaban 5 mg tablet 5 mg PO BID #60 tabs 08/24/22 09/11/22 09/10/22 Rx Allergies Allergy/AdvReac Type Severity Reaction Status Date / Time aspirin Allergy Unknown unknown Verified 09/11/22 07:25 Sulfa (Sulfonamide Allergy Unknown unknown Verified 09/11/22 07:25 Antibiotics) PFSH Acute PFSH: Medical History Bilateral carotid artery stenosis Colon polyps COPD (chronic obstructive pulmonary disease) Dark stools Diverticulosis Hiatal hernia HTN (hypertension) Hyperlipidemia associated with type 2 diabetes mellitus Presence of intrathecal pump Ventricular hypertrophy Surgical History H/O cataract extraction H/O: hysterectomy Hx of appendectomy Family History Mother CAD (coronary artery disease), Onset Age: 70 Cancer Dementia Sister Diabetes Denies family history of Clotting disorder Chronic kidney disease (CKD) Suicide Anesthesia complication Bleeding disorder Lung disease Stroke Social History Smoking and tobacco status: former smoker Alcohol intake: never Substance/Drug Use: never Female Reproductive History: Spontaneous abortions: No Vitals/I&O/Wt Last Vital Signs Temp 98.1 F 09/11/22 11:10 Pulse 77 09/11/22 11:10 Resp 18 09/11/22 11:10 BP 171/76 09/11/22 11:10 Pulse Ox 97 09/11/22 11:10 O2 Del Method Nasal Cannula 09/11/22 11:10 O2 Flow Rate 2 09/11/22 09:05 09/10/22 09/11/22 09/11/22 22:59 06:59 14:59 Intake Total 250 / 250 Balance 250 / 250 Weight last 48 hrs Weight 76.657 kg Physical Exam Const: COMMON NORMALS: patient oriented x3 and alert GENERAL APPEARANCE: cooperative ORIENTATION/CONSCIOUSNESS: Yes awake HENMT: COMMON NORMALS: oropharynx normal Neck/C-Spine: COMMON NORMALS: no JVD Resp: COMMON NORMALS: normal respiratory effort and clear to auscultation bilaterally AUSCULTATION: clear to auscultation bilaterally Cardio: COMMON NORMALS: no JVD, regular rhythm, S1 normal heart sound present, S2 normal heart sound present and No murmurs present (Cardio) RHYTHM: regular rhythm HEART SOUNDS: S1 normal heart sound present and S2 normal heart sound present GI: COMMON NORMALS: Normal to inspection, nondistended, normoactive bowel sounds present, Soft to palpation and non-tender PALPATION: Yes Soft to palpation Extremity: COMMON NORMALS: no joint enlargement and no pedal edema Neuro: COMMON NORMALS: patient oriented x3 and moves all extremities SENSORIUM/ORIENTATION: Yes alert Skin: COMMON NORMALS: no rashes or lesions noted GENERAL SKIN EXAM: no rashes or lesions noted Data 09/11/22 03:44 09/11/22 03:44 A&P Assessment and plan (1) Chest pain: Chest pain was central across her chest, she states it felt like she got hit in the chest with a 2 x 4 which woke her up early this morning. She received nitroglycerin in the ER which seems to have taken care of chest pain. She is noted to have acute anemia hemoglobin down to 6.8. Suspect this may have contributed and/or led to chest pain, possibly could have been also secondary to arrhythmia in the setting of anemia. She does state that occasionally her heart runs fast. Complete troponin EKG series to assess for MA. Has recently had a stress test. NTG as needed. Transfuse RBC We will monitor on telemetry. Consider event monitor. Aspirin for now kept on board. (2) Anemia: Acute anemia, hemoglobin down to 6.8. MCV 82.5. Platelets 384. Possible GI bleeding, reports profuse dark diarrhea starting early in the morning on Monday. She mentions that together with getting an iron infusion on Monday, but I doubt that that is related. Does have history of multiple AVMs noted in the colon on recent colonoscopy. Possibly additional AVMs. Will need further work-up and follow-up to find source of bleeding, inpatient versus outpatient depending on response to transfusion and rate of hemoglobin decline, in case responding well, no rapid decline, consider outpatient follow-up with gastroenterology for further consideration of capsule endoscopy versus push enteroscopy. If not responding or pressure responding to transfusion and/or if rapid decline in hemoglobin, consider evaluation prior to discharge, consideration of repeating upper and lower endoscopy here and if no source consideration of transfer for push enteroscopy, versus direct transfer for push enteroscopy without repeat EGD and colonoscopy. The surgeon currently on does not have privileges for colonoscopy, please discuss with surgery tomorrow consideration of options. Currently at risk of possibly life-threatening bleeding, on Eliquis, aspirin. Set up for transfusion of 2 units RBC, recheck hemoglobin after transfusion. For now do not resume Eliquis, aspirin for now is kept on board, but consider stopping depending on response to transfusion. (3) Pulmonary embolism: Has been on Eliquis 5 mg twice daily. For now did not resume depending on stability of her blood counts consideration may be given to withholding if unstable, versus consideration of continuing with monitoring if GI bleeding treated, otherwise consideration of IVC filter given recent PE, as well as appears may be at risk for developing pulmonary hypertension until GI bleeding can be treated and can be restarted on anticoagulation. We will need long-term management to prevent recurrent PEs, progression to pulmonary hypertension, for this will need to investigation and control of bleeding. Qualifiers: Pulmonary embolism type: multiple subsegmental (without acute cor pulmonale) Qualified Code(s): I26.94 - Multiple subsegmental pulmonary emboli without acute cor pulmonale (4) AVM (arteriovenous malformation): Recently noted colonoscopy with AVM treatment. Echocardiogram without aortic stenosis. Could not exclude genetic condition associated with AVM, was referred initially for follow-up MRI to exclude CON[employer] MGR AVM given need for anticoagulation, please make sure she completes it. Plan Carotid artery stenosis COPD: Currently not in exacerbation, albuterol nebs as needed HTN: Monitor blood pressures HLD: Continue statin DM2: Accu-Cheks, SSI Intrathecal pain pump Hiatal hernia Discussed with ER physician. ER documentation reviewed. Attestations Medical Necessity Statement*: Please continue observation for additional assessment management of chest pain, acute anemia and lady on anticoagulation with Eliquis with recent PE, AVMs. Diagnoses Chest pain R07.9 Anemia D64.9 Pulmonary embolism I26.94 Pulmonary embolism type: multiple subsegmental (without acute cor pulmonale) AVM (arteriovenous malformation) Q27.30
[2022-09-11] MEDS: pantoprazole 40 mg SDV IVP ×2 (13:04→23:09)
[2022-09-11 14:22] LABS: Glucose Point of Care 166 mg/dL (70-110)
[2022-09-11 17:58] LABS: Hemoglobin 8.9 g/dL (11.5-15.3)
[2022-09-11 18:11] LABS: Troponin 5 6HR 63.86 ng/L (0-10)
[2022-09-11 19:07] LABS: Troponin 5 6HR Delta 22.86 ng/L (0-12)
[2022-09-11] MEDS: efferdent effervescent 1 EACH DENTAL (19:18)
[2022-09-11 21:16] LABS: Glucose Point of Care 96 mg/dL (70-110)
[2022-09-12] VITALS: BP 136/72; PULSE 57; RESP 19; TEMP 36.9; O2SAT 95
[2022-09-12 05:13] LABS: Basophils # 0.1 10^3/uL (0.0-0.1); Basophils % 1.1 %; Eosinophils # 0.6 10^3/uL (0.0-0.8); Eosinophils % 7.5 %; Hemoglobin 7.9 g/dL (11.5-15.3); Lymphocytes # 2.1 10^3/uL (0.8-4.8); Lymphocytes % 26.1 %; Mean Corpuscular HGB Conc 29.3 g/dL (30.0-36.0); Mean Corpuscular Hemoglobin 24.5 pg (28.0-34.0); Mean Corpuscular Volume 83.9 fl (81-99); Mean Platelet Volume 10.5 fL (7.4-10.4); Monocytes # 0.7 10^3/uL (0.2-0.9); Monocytes % 8.8 %; Neutrophils # 4.46 10^3/uL (1.8-7.7); Neutrophils % 55.4 %; Nucleated Red Blood Cells % 0.2 %; Platelet Count 291 10^3/cmm (130-400); Red Blood Count 3.22 10^6/uL (4.1-5.3); Red Cell Distribution Width 16.9 % (12.1-15.1); White Blood Count 8.1 10^3/uL (4.0-10.0)
[2022-09-12 05:30] VITALS: BP 156/74; PULSE 59; RESP 18; TEMP 36.5; O2SAT 97
[2022-09-12 05:32] LABS: Alanine Aminotransferase 7 U/L (0-33); Albumin Level 3.3 g/dL (3.5-5.2); Alkaline Phosphatase 90 U/L (35-105); Anion Gap 10.9 (5-19); Aspartate Amino Transferase 10 U/L (0-32); Blood Urea Nitrogen 10 mg/dL (8-23); Calcium 8.2 mg/dL (8.5-10.5); Carbon Dioxide 30 mmol/L (22-29); Chloride 101 mmol/L (98-107); Globulin 2.2 g/dL (1.3-4.6); Glucose 91 mg/dL (65-115); Osmolality Calculated 285 mOsm/kg (285-295); Potassium 3.9 mmol/L (3.5-5.1); Sodium 138 mmol/L (136-145); Total Bilirubin 0.8 mg/dL (0.15-1.2); Total Protein 5.5 g/dL (6.6-8.7)
[2022-09-12 05:35] LABS: Glucose Point of Care 124 mg/dL (70-110)
[2022-09-12 05:36] LABS: Troponin T (5th) Once 71 ng/L (0-10)
[2022-09-12 07:53] VITALS: BP 155/75; PULSE 81; RESP 19; TEMP 36.8; O2SAT 96
[2022-09-12 08:36] VITALS: PULSE 81; RESP 17; O2SAT 94
[2022-09-12] MEDS: potassium chloride ER 10 mEq Tablet PO (08:55)
[2022-09-12] MEDS: atorvastatin 40 mg Tablet 80 MG PO (08:55)
[2022-09-12] MEDS: aspirin 81 mg EC Tablet PO (08:55)
[2022-09-12 09:02] LABS: Hematocrit 30.3 % (37.0-47.0); Hemoglobin 9.2 g/dL (11.5-15.3)
[2022-09-12 11:58] VITALS: BP 137/63; PULSE 67; RESP 19; TEMP 37.1; O2SAT 97
--- NOTE | 2022-09-12 12:12 | P.DS_ITS ---
Discharge Providers Date of Admission: 09/11/22 08:40 Date of Discharge: September 12, 2022 Attending Provider at Admission: Sloan De Paz Attending Provider at Discharge: Long Singleton MD Primary Care Provider: Regulo Kelley DO Diagnoses at Discharge Discharge Diagnosis (1) Chest pain: Status: Acute (2) Anemia: Status: Acute (3) Pulmonary embolism: Status: Acute Qualifiers: Pulmonary embolism type: multiple subsegmental (without acute cor pulmonale) Qualified Code(s): I26.94 - Multiple subsegmental pulmonary emboli without acute cor pulmonale (4) AVM (arteriovenous malformation): Status: Acute Reason for Visit Reason for Visit: CP Hospital Course Hospital Course 76-year-old lady admitted with recent hospitalization with NSTEMI on presentation, found to have PE, underwent cardiac evaluation with stress test which was unremarkable, was anticoagulated with Eliquis, hospitalization complicated by acute anemia, was seen by surgery at that time underwent upper and lower endoscopy, and colonoscopy noted to have multiple AVMs which were treated, hemoglobin eventually stabilized, and she was able to discharge with Eliquis. No aortic stenosis, at discharge also was referred for MRI of the brain due to multiple AVMs, could not exclude some sort of genetic condition with disseminated AVM, MRI was to confirm no AVM in the [employer], She returned to the hospital after being woken up by chest pain. On presentation with noted acute anemia hemoglobin down to 6.8. Troponin with mild elevation, but appears to have positive delta at 6 hours up to 64. After receiving nitro in ER chest pain went away and remains chest pain-free. Receiving 2 units RBC transfusion due to some possibility of cardiac ischemia, although did have a normal stress test recently. Discussed with her some possibility of false n egative results with stress test, so would still be vigilant, although suspect more chest pain may have been secondary to acute anemia and with recent PE. Did have CT angiogram chest abdomen pelvis on presentation, no PE noted there, some signs of developing pulmonary hypertension, otherwise no sign of retroperitoneal hematoma or other bleed. She does report that on Monday she got an iron infusion . 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 Hemoglobin is around 9.2 at the time of discharge she will need further evaluation for the source of this bleeding with gastroenterology and possibly with push enteroscopy or capsule endoscopy if able to follow-up on outpatient side. In case of further bleeding then she might be a candidate for IVC filter for now I have requested patient to continue Eliquis watch her stool color check her CBC within 2 weeks and hold aspirin until then and follow-up with gastroenterology outpatient basis at [place] Physical Exam Narrative: Hemodynamically stable GCS 15 Awake and alert Pleasant and cooperative Appears stated age At baseline oxygen of 2 L Abdomen soft Discharge Data Studies Completed and Pending Completed Studies During Hospitalization Category Date Time Status CTA chest abdomen pelvis [CT ang ches abdpel 88466/ Cat Scan 09/11/22 06:24 Completed [id number]] Stat XR chest 1V portable [id number] Stat Exams 09/11/22 04:09 Completed Pending at discharge Category Date Time Status Complete Blood Count w/Auto AM LABS Lab 09/13/22 04:00 Ordered Complete Blood Count w/Auto AM LABS Lab 09/14/22 04:00 Ordered Comprehensive Metabolic Panel AM LABS Lab 09/13/22 04:00 Ordered Comprehensive Metabolic Panel AM LABS Lab 09/14/22 04:00 Ordered Fecal Occult Blood [Immunochemical Fecal OCB] Routine Lab 09/11/22 14:19 Uncollected Radiology Impressions Chest X-Ray 09/11/22 04:09 IMPRESSION: No acute cardiopulmonary abnormality identified. Chest/Abdomen/Pelvis CTA 09/11/22 06:24 IMPRESSION: 1. No pulmonary embolism identified. 2. Enlargement of the main pulmonary artery which may be seen in patients with pulmonary hypertension. 3. No acute aortic abnormality identified. Laboratory Results WBC 8.1 10^3/uL (4.0-10.0) 09/12/22 04:34 RBC 3.22 10^6/uL (4.1-5.3) L 09/12/22 04:34 Hgb 9.2 g/dL (11.5-15.3) L 09/12/22 08:49 Hct 30.3 % (37.0-47.0) L 09/12/22 08:49 MCV 83.9 fl (81-99) 09/12/22 04:34 MCH 24.5 pg (28.0-34.0) L 09/12/22 04:34 MCHC 29.3 g/dL (30.0-36.0) L D 09/12/22 04:34 RDW 16.9 % (12.1-15.1) H 09/12/22 04:34 Plt Count 291 10^3/cmm (130-400) 09/12/22 04:34 MPV 10.5 fL (7.4-10.4) H 09/12/22 04:34 Neut % (Auto) 55.4 % 09/12/22 04:34 Lymph % (Auto) 26.1 % 09/12/22 04:34 [place] % (Auto) 8.8 % 09/12/22 04:34 Eos % (Auto) 7.5 % 09/12/22 04:34 Baso % (Auto) 1.1 % 09/12/22 04:34 Neut # (Auto) 4.46 10^3/uL (1.8-7.7) 09/12/22 04:34 Lymph # (Auto) 2.1 10^3/uL (0.8-4.8) 09/12/22 04:34 [place] # (Auto) 0.7 10^3/uL (0.2-0.9) 09/12/22 04:34 Eos # (Auto) 0.6 10^3/uL (0.0-0.8) 09/12/22 04:34 Baso # (Auto) 0.1 10^3/uL (0.0-0.1) 09/12/22 04:34 Nucleated RBC % (auto) 0.2 % 09/12/22 04:34 Nucleated RBCs # 0.0 /100WBC 09/12/22 04:34 Sodium 138 mmol/L (136-145) 09/12/22 04:34 Potassium 3.9 mmol/L (3.5-5.1) 09/12/22 04:34 Chloride 101 mmol/L (98-107) 09/12/22 04:34 Carbon Dioxide 30 mmol/L (22-29) H 09/12/22 04:34 Anion Gap 10.9 (5-19) 09/12/22 04:34 BUN 10 mg/dL (8-23) 09/12/22 04:34 Creatinine 1.2 mg/dL (0.5-0.9) H 09/12/22 04:34 GFR Calculation Not Reportable 09/12/22 04:34 Glucose 91 mg/dL (65-115) 09/12/22 04:34 POC Glucose 124 mg/dL (70-110) H 09/12/22 05:29 Calculated Osmolality 285 mOsm/kg (285-295) 09/12/22 04:34 Calcium 8.2 mg/dL (8.5-10.5) L 09/12/22 04:34 Total Bilirubin 0.8 mg/dL (0.15-1.2) 09/12/22 04:34 AST 10 U/L (0-32) 09/12/22 04:34 ALT 7 U/L (0-33) 09/12/22 04:34 Alkaline Phosphatase 90 U/L (35-105) 09/12/22 04:34 Troponin T Gen 5 ng/L 71 ng/L (0-10) H 09/12/22 04:34 Troponin T Baseline 41 ng/L (0-10) H 09/11/22 03:44 Troponin T 120 Minute 42.87 ng/L (0-10) H 09/11/22 06:01 Delta Troponin T 1.87 ABS# (0-10) 09/11/22 06:01 Troponin T Hi Sens 6Hr 63.86 ng/L (0-10) H 09/11/22 17:38 Troponin T Hi Sens 6Hr Delta 22.86 ng/L (0-12) H* 09/11/22 17:38 NT-Pro-B Natriuret Pep 1401 pg/mL (0-450) H 09/11/22 03:44 Total Protein 5.5 g/dL (6.6-8.7) L 09/12/22 04:34 Albumin 3.3 g/dL (3.5-5.2) L 09/12/22 04:34 Globulin 2.2 g/dL (1.3-4.6) 09/12/22 04:34 Blood Type A Positive 09/11/22 07:12 Rho(D) Type Positive 09/11/22 07:12 Antibody Screen Negative 09/11/22 07:12 Crossmatch See Detail 09/11/22 07:12 Vitals Last Vital Signs Temp 98.8 F 09/12/22 11:58 Pulse 67 09/12/22 11:58 Resp 19 H 09/12/22 11:58 BP 137/63 09/12/22 11:58 Pulse Ox 97 09/12/22 11:58 O2 Del Method Nasal Cannula 09/12/22 08:36 O2 Flow Rate 2 09/12/22 08:36 Discharge Plan Discharge Patient Disposition: Home Condition: Stable Prescriptions: Continued multivitamin Tablet 1 tab PO DAILY pantoprazole 40 mg tablet,delayed release (DR/EC) 40 mg PO BID Qty: 180 1RF atorvastatin 80 mg tablet 80 mg PO DAILY Qty: 90 2RF (DME) oxygen See Rx Instructions .Route .MEDSUPPLY Qty: 1 0RF Rx Instructions: Please issue portable oxygen delivery system with NC, 3-4L oxygen requirement to maintain oxygen saturation at >90%. Will need lifetime treatment with oxygen. potassium chloride 10 mEq capsule, extended release 10 meq PO DAILY Qty: 90 3RF apixaban 5 mg tablet 5 mg PO BID Qty: 60 5RF albuterol sulfate [Ventolin HFA] 90 mcg/actuation HFA aerosol inhaler 2 puff inhalation Q4H PRN (Reason: shortness of breath or wheezing) Qty: 18 5RF furosemide 40 mg tablet 40 mg PO DAILY PRN (Reason: Edema) 30 Days Qty: 90 3RF Held aspirin [Adult Low Dose Aspirin] 81 mg tablet,delayed release (DR/EC) 81 mg PO DAILY Qty: 90 3RF Hold Instructions: Resume on 09/26/22. Discharge Orders: Discharge Order (Routine); Ordered 09/12/22 Ordered By: Long Singleton Other Ambulatory Orders: Complete Blood Count w/Auto (Routine) Timeframe: 2 Weeks Location: Determined by Patient Ordered By: Long Singleton Referrals: Regulo Kelley DO [Primary Care Provider] - Hillary Ceballos MD [Referring] - 2 weeks (Capsule endoscopy) Discharge Diet: Cardiac Discharge Activity: Increase activity as tolerated Patient Instructions: Opioid Safety Activity Restrictions/Additional Instructions: Please recheck CBC within 2 weeks, hold aspirin until then, you may continue Eliquis In case of further bleeding you might need an IVC filter Please get your brain imaging done to rule out AV malformation in cranial vessels Please make an appointment with a electric meter tester in [place] Discharge Attestations Time Spent in Discharge Care*: greater than 30 min Quality Metrics Clinical Quality Measures [ No reported AMI, CVA or VTE this stay] Coding Level of Care Code Acute Code for Chg Fwd Diagnoses Chest pain R07.9 Anemia D64.9 Pulmonary embolism I26.94 Pulmonary embolism type: multiple subsegmental (without acute cor pulmonale) AVM (arteriovenous malformation) Q27.30
[2022-09-12] MEDS: pantoprazole 40 mg SDV IVP (12:16)
--- NOTE | 2022-09-12 15:20 | PC.NURSE ---
Discharge Note Patient discharged to home via private vehicle accompanied by friend. Discharge instructions reviewed with patient and/or sales representative trainee. Mobile pharmacy medications and/or prescriptions provided. Belongings/home medications returned.
[2022-09-12 15:21] VITALS: BP 137/63; PULSE 67; RESP 19; TEMP 37.1; O2SAT 97
--- NOTE | 2022-09-13 13:12 | PC.SOCIAL ---
Message sent to Dr. Kelley office to arrange TCM follow up.
== END 2022-09-12 15:22 | disposition home or self-care (01) ==
LOC: ER 08:40 → MEDSURG 09:02
PROVIDERS: Emergency Medicine; Admitting Provider Internal Medicine; Emergency Provider Family Medicine; PCP Family Medicine; Visit Provider Internal Medicine
DX: D64.9 Anemia, unspecified (principal); J44.9 Chronic obstructive pulmonary disease, unspecified; Z86.711 Personal history of pulmonary embolism; K57.90 Diverticulosis of intestine, part unspecified, without perforation or abscess without bleeding; K44.9 Diaphragmatic hernia without obstruction or gangrene; I10 Essential (primary) hypertension; E78.5 Hyperlipidemia, unspecified; Z87.891 Personal history of nicotine dependence; R77.8 Other specified abnormalities of plasma proteins; K55.20 Angiodysplasia of colon without hemorrhage; Z79.51 Long term (current) use of inhaled steroids
CPT/HCPCS: 36415; 36416; 36430; 71045; 71275; 74174; 80053; 82962; 83880; 84484; 85014; 85018; 85025; 86850; 86900; 86920; 93005; 96374; 99285; C9113; G0378; P9016; P9040; Q9967

== ENCOUNTER → 2022-09-26 10:01 | Outpatient (BNVA) | payer MEDICARE, MEDICAID, SELFPAY | PROVIDERS: PCP Family Medicine; Visit Provider Internal Medicine | DX: Q27.30 Arteriovenous malformation, site unspecified (principal); D64.9 Anemia, unspecified; R19.5 Other fecal abnormalities | CPT/HCPCS: 85025 ==

== ENCOUNTER → 2022-10-26 14:21 | Outpatient (BNVA) | payer MEDICARE, MEDICAID, SELFPAY | PROVIDERS: PCP Family Medicine; Visit Provider Dermatology | DX: L98.8 Other specified disorders of the skin and subcutaneous tissue (principal); D18.01 Hemangioma of skin and subcutaneous tissue; L81.4 Other melanin hyperpigmentation; L72.8 Other follicular cysts of the skin and subcutaneous tissue; Z85.828 Personal history of other malignant neoplasm of skin; Z87.891 Personal history of nicotine dependence | CPT/HCPCS: 99213 ==

== ENCOUNTER 2022-11-04 06:00 | Outpatient (RCR) | payer MEDICARE, MEDICAID, SELFPAY | END 2022-12-03 23:59 | disposition home or self-care (01) | LOC: PULRHB 06:00 | PROVIDERS: PCP Family Medicine; Visit Provider Internal Medicine Cardiovascular Disease | DX: J44.9 Chronic obstructive pulmonary disease, unspecified (principal) | CPT/HCPCS: 94625 ==

== ENCOUNTER → 2022-11-14 16:54 | Outpatient (BNVA) | payer MEDICARE, MEDICAID, SELFPAY | PROVIDERS: PCP Family Medicine; Visit Provider Family Medicine | DX: D50.9 Iron deficiency anemia, unspecified (principal); I50.9 Heart failure, unspecified | CPT/HCPCS: 80048; 85027 ==

== ENCOUNTER 2022-11-28 14:49 | Emergency (ER) | payer MEDICARE, MEDICAID, SELFPAY ==
--- NOTE | 2022-11-28 14:57 | ECG_ITS ---
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 Measurements Intervals [place] Rate: 84 P: 31 [place]: 120 QRS: 15 QRSD: 102 T: 126 QT: 384 QTc: 455 Interpretive Statements SINUS RHYTHM VOLTAGE CRITERIA FOR LVH [MEETS CRITERIA IN ONE OF: R(aVL), S(V1), R(V5), R(V5/V6)+S(V1)] ST DEVIATION AND MODERATE T-WAVE ABNORMALITY, CONSIDER LATERAL ISCHEMIA [-0.1+ mV T-WAVE IN I/aVL/V5/V6] Compared to ECG 09/11/2022 10:41:17 T-wave abnormality now present Possible ischemia now present ST (T wave) deviation no longer present Electronically Signed On 11-28-2022 16:14:27 CDT by Wojciech Siddiqui M.D. [email or web address]
[2022-11-28 15:03] VITALS: BP 135/82; PULSE 83; RESP 16; TEMP 36.7; O2SAT 95; BMI 31.1
--- NOTE | 2022-11-28 16:03 | XRR_ITS ---
PROCEDURE INFORMATION: Exam: XR Chest Exam date and time: 11/28/2022 4:08 PM Age: 76 years old Clinical indication: Condition or disease; Lung condition and disease; Copd; Complications not specified; Cough and shortness of breath; Additional info: Dyspnea/cough TECHNIQUE: Imaging protocol: Radiologic exam of the chest. Views: 1 view. COMPARISON: CR XR chest 1V portable [id number] 09/11/2022 4:12 AM FINDINGS: Lungs: Unremarkable. No consolidation. Pleural spaces: Unremarkable. No pleural effusion. No pneumothorax. Heart/Mediastinum: Stable cardiomegaly. Bones/joints: No acute findings. XR/XR chest 1V portable [id number] IMPRESSION: No acute findings.
--- NOTE | 2022-11-28 16:18 | W.ED.SOB ---
HPI - SOB/Dyspnea General: Chief Complaint: Shortness of Breath/Dyspnea Stated Complaint: high BP/SOB Time Seen by Provider: 11/28/22 16:02 Source: patient Mode of arrival: ambulatory History of Present Illness: HPI Narrative: 68-year-old female presents emergency room with complaints of elevated blood pressure and shortness of breath. She takes Lasix for hypertension according to her primary care physician's note. Today she noted blood pressures in the 180s her rate is well controlled she has a history of chronic kidney disease congestive heart failure anemia and hypertension. Blood pressure usually is in the 120s to 130s systolic range. She also history of DVT and is on apixaban. MD elicited complaint: shortness of breath Pertinent past history: COPD and congestive heart failure Associated symptoms: Deny abdominal pain, chest pain, fever(s), nausea, orthopnea or vomiting Review of Systems Const: Denies: fever(s), chills, body aches, change in appetite, fatigue or malaise ENMT: Denies: throat pain, ear or mastoid pain, nasal discharge or nasal congestion Card: Denies: chest pain, edema, dyspnea on exertion or orthopnea Resp: Denies: dyspnea, productive cough or non-productive cough GI: Denies: abdominal pain, nausea, vomiting, hematemesis, coffee ground emesis, diarrhea, constipation, bloating, hematochezia or melena : Denies: flank pain, difficulty voiding, dysuria, urinary frequency or urinary urgency Skin/Breast: Denies: rash or pruritus PFSH ED PFSH: Medical History Anemia AVM (arteriovenous malformation) Bilateral carotid artery stenosis Chest pain Colon polyps COPD (chronic obstructive pulmonary disease) Dark stools Diverticulosis Hiatal hernia HTN (hypertension) Hyperlipidemia associated with type 2 diabetes mellitus Presence of intrathecal pump Pulmonary embolism Ventricular hypertrophy Surgical History H/O cataract extraction H/O: hysterectomy Hx of appendectomy Family History Mother CAD (coronary artery disease), Onset Age: 70 Cancer Dementia Sister Diabetes Denies family history of Clotting disorder Chronic kidney disease (CKD) Suicide Anesthesia complication Bleeding disorder Lung disease Stroke Social History Smoking and tobacco status: former smoker Alcohol intake: never Substance/Drug Use: never Female Reproductive History: Spontaneous abortions: No Physical Exam Const: GENERAL APPEARANCE: cooperative and comfortable ORIENTATION/CONSCIOUSNESS: Yes awake, Yes oriented to person, Yes oriented to place and Yes oriented to time HENMT: COMMON NORMALS: normocephalic, atraumatic and hearing grossly normal bilaterally HEAD & SCALP: normocephalic and atraumatic Resp: COMMON NORMALS: normal respiratory effort, No retractions, No use of accessory muscles and clear to auscultation bilaterally AUSCULTATION: clear to auscultation bilaterally Cardio: COMMON NORMALS: regular rate, regular rhythm and No murmurs present (Cardio) RATE: regular rate RHYTHM: regular rhythm GI: COMMON NORMALS: Soft to palpation and No hepatosplenomegaly present AUSCULTATION: Yes normoactive bowel sounds PALPATION: Yes Soft to palpation, No Tenderness to palpation present (GI), No Guarding due to palpation present (GI) and Yes No hepatosplenomegaly present Extremity: COMMON NORMALS: normal to inspection, capillary refill normal, no clubbing, cyanosis or edema, no calf tenderness and no pedal edema Neuro: SENSORIUM/ORIENTATION: Yes oriented to person, Yes oriented to place and Yes oriented to time Skin: COMMON NORMALS: no rashes or lesions noted GENERAL SKIN EXAM: no rashes or lesions noted Course Vital Signs: Vital signs: Vital Signs Temperature 98.0 F 11/28/22 19:00 Pulse Rate 83 11/28/22 19:00 Respiratory Rate 16 11/28/22 19:00 Blood Pressure 156/113 11/28/22 19:00 Pulse Oximetry 98 11/28/22 19:00 Oxygen Delivery Me thod Nasal Cannula 11/28/22 15:03 Oxygen Flow Rate 2 11/28/22 15:03 MDM - SOB/Dyspnea Medical Decision Making Chest x-ray and EKG unremarkable. Exam no significant abnormalities she is having some mild anemia which is chronic. She also has some chronic renal insufficiency. Medical Records I reviewed the patient's medical records. Lab Data I reviewed the patient's lab results. 11/28/22 16:14 11/28/22 16:14 Labs/Radiology: Radiology Impressions Chest X-Ray 11/28/22 16:03 IMPRESSION: No acute findings. Laboratory Results WBC 8.16 10^3/uL (3.29-11.43) 11/28/22 16:14 RBC 3.92 10^6/uL (3.85-5.65) 11/28/22 16:14 Hgb 9.70 g/dL (11.27-16.99) L 11/28/22 16:14 Hct 33.2 % (36-47) L 11/28/22 16:14 MCV 84.7 fl (85-98) L 11/28/22 16:14 MCH 24.7 pg (27-33) L 11/28/22 16:14 MCHC 29.2 g/dL (30-55) L 11/28/22 16:14 RDW 15.9 % (12.1-15.1) H 11/28/22 16:14 Plt Count 377 10^3/cmm (157-399) 11/28/22 16:14 MPV 10.2 fL (7.4-10.4) 11/28/22 16:14 Neut % (Auto) 69.4 % 11/28/22 16:14 Lymph % (Auto) 18.3 % 11/28/22 16:14 [place] % (Auto) 8.5 % 11/28/22 16:14 Eos % (Auto) 2.5 % 11/28/22 16:14 Baso % (Auto) 0.9 % 11/28/22 16:14 Neut # (Auto) 5.68 10^3/uL (1.8-7.7) 11/28/22 16:14 Lymph # (Auto) 1.5 10^3/uL (0.8-4.8) 11/28/22 16:14 [place] # (Auto) 0.7 10^3/uL (0.2-0.9) 11/28/22 16:14 Eos # (Auto) 0.2 10^3/uL (0.0-0.8) 11/28/22 16:14 Baso # (Auto) 0.1 10^3/uL (0.0-0.1) 11/28/22 16:14 Nucleated RBC % (auto) 0 % 11/28/22 16:14 Nucleated RBCs # 0.0 /100WBC 11/28/22 16:14 Sodium 141 mmol/L (136-145) 11/28/22 16:14 Potassium 3.6 mmol/L (3.5-5.1) 11/28/22 16:14 Chloride 99 mmol/L (98-107) 11/28/22 16:14 Carbon Dioxide 33 mmol/L (22-29) H 11/28/22 16:14 Anion Gap 12.6 (5-19) 11/28/22 16:14 BUN 14 mg/dL (8-23) 11/28/22 16:14 Creatinine 1.3 mg/dL (0.5-0.9) H 11/28/22 16:14 GFR Calculation Not Reportable 11/28/22 16:14 Glucose 106 mg/dL (65-115) 11/28/22 16:14 Calculated Osmolality 293 mOsm/kg (285-295) 11/28/22 16:14 Calcium 9.2 mg/dL (8.5-10.5) 11/28/22 16:14 Total Bilirubin 0.3 mg/dL (0.15-1.2) 11/28/22 16:14 AST 14 U/L (0-32) 11/28/22 16:14 ALT 9 U/L (0-33) 11/28/22 16:14 Alkaline Phosphatase 103 U/L (35-105) 11/28/22 16:14 Total Protein 7.4 g/dL (6.6-8.7) 11/28/22 16:14 Albumin 4.2 g/dL (3.5-5.2) 11/28/22 16:14 Globulin 3.2 g/dL (1.3-4.6) 11/28/22 16:14 Urine Color Yellow (Yellow) 11/28/22 18:07 Urine Appearance Clear (CLEAR) 11/28/22 18:07 Urine pH 5 (5-7) 11/28/22 18:07 Ur Specific [place] 1.010 (1.005-1.030) 11/28/22 18:07 Urine Protein Neg (Negative) 11/28/22 18:07 Urine Glucose (UA) Norm (Normal) 11/28/22 18:07 Urine Ketones Negative (Negative) 11/28/22 18:07 Urine Blood Neg (Negative) 11/28/22 18:07 Urine Nitrate Negative (Negative) 11/28/22 18:07 Urine Bilirubin Neg (Negative) 11/28/22 18:07 Urine Urobilinogen Norm mg/dL (Negative) 11/28/22 18:07 Ur Leukocyte Esterase Negative (Negative) 11/28/22 18:07 All radiology interpretation(s) finalized by discharge Discharge Plan Discharge Patient Disposition: Home Clinical Impression: Tachycardia, Benign essential HTN Condition: Stable Prescriptions: New amlodipine 5 mg tablet 5 mg PO DAILY PRN (Reason: hypertension) Qty: 30 0RF Rx Instructions: take for blood pressures over 150 systolic (top number) No Action pantoprazole 40 mg tablet,delayed release (DR/EC) 40 mg PO BID Qty: 180 1RF atorvastatin 80 mg tablet 80 mg PO DAILY Qty: 90 2RF (DME) oxygen See Rx Instructions .Route .MEDSUPPLY Qty: 1 0RF Rx Instructions: Please issue portable oxygen delivery system with [place], 3-4L oxygen requirement to maintain oxygen saturation at >90%. Will need lifetime treatment with oxygen. apixaban 5 mg tablet 5 mg PO BID Qty: 60 5RF albuterol sulfate [Ventolin HFA] 90 mcg/actuation HFA aerosol inhaler 2 puff inhalation Q4H PRN (Reason: shortness of breath or wheezing) Qty: 18 5RF nitroglycerin 0.4 mg tablet, sublingual 0.4 mg sublingual Q5M PRN (Reason: chest pain) Qty: 20 0RF Rx Instructions: do not exceed 3 doses per episode furosemide 40 mg tablet 40 mg PO DAILY PRN (Reason: Edema) 30 Days Qty: 90 3RF potassium chloride 10 mEq capsule, extended release 10 meq PO DAILY PRN (Reason: Edema) Rx Instructions: TAKE WHILE TAKING FUROSEMIDE Discharge Orders: Discharge ED (Routine); Ordered 11/28/22 Ordered By: Solomon Sawant Referrals: Regulo Kelley DO [Primary Care Provider] - Discharge Diet: Usual diet Discharge Activity: Resume usual activity Patient Instructions: Opioid Safety, Pain Management Activity Restrictions/Additional Instructions: Your blood pressure normalized your heart rate is in the normal range. Recommend you follow-up with your primary care doctor within the next 10 to 14 days to reevaluate. Coding Level of Care Code ED Signs Sales Representative for Veronica Perkins
[2022-11-28 16:19] LABS: Basophils # 0.1 10^3/uL (0.0-0.1); Basophils % 0.9 %; Eosinophils # 0.2 10^3/uL (0.0-0.8); Eosinophils % 2.5 %; Hematocrit 33.2 % (36-47); Lymphocytes # 1.5 10^3/uL (0.8-4.8); Lymphocytes % 18.3 %; Mean Corpuscular HGB Conc 29.2 g/dL (30-55); Mean Corpuscular Hemoglobin 24.7 pg (27-33); Mean Corpuscular Volume 84.7 fl (85-98); Mean Platelet Volume 10.2 fL (7.4-10.4); Monocytes # 0.7 10^3/uL (0.2-0.9); Monocytes % 8.5 %; Neutrophils # 5.68 10^3/uL (1.8-7.7); Neutrophils % 69.4 %; Nucleated Red Blood Cells % 0 %; Platelet Count 377 10^3/cmm (157-399); Red Blood Count 3.92 10^6/uL (3.85-5.65); Red Cell Distribution Width 15.9 % (12.1-15.1); White Blood Count 8.16 10^3/uL (3.29-11.43)
[2022-11-28 16:35] LABS: Alanine Aminotransferase 9 U/L (0-33); Albumin Level 4.2 g/dL (3.5-5.2); Alkaline Phosphatase 103 U/L (35-105); Anion Gap 12.6 (5-19); Aspartate Amino Transferase 14 U/L (0-32); Blood Urea Nitrogen 14 mg/dL (8-23); Calcium 9.2 mg/dL (8.5-10.5); Carbon Dioxide 33 mmol/L (22-29); Chloride 99 mmol/L (98-107); Globulin 3.2 g/dL (1.3-4.6); Glucose 106 mg/dL (65-115); Osmolality Calculated 293 mOsm/kg (285-295); Potassium 3.6 mmol/L (3.5-5.1); Sodium 141 mmol/L (136-145); Total Bilirubin 0.3 mg/dL (0.15-1.2); Total Protein 7.4 g/dL (6.6-8.7)
[2022-11-28 18:14] LABS: Add Urine Microscopic? NO; Bilirubin Urine Neg (Negative); Blood Urine Neg (Negative); Charge for UA Resulting for Rev; Glucose Urine UA Norm (Normal); Ketones Urine Negative (Negative); Leukocyte Esterase Urine Negative (Negative); Nitrate Urine Negative (Negative); Protein Urine Neg (Negative); Urine Appearance Clear (CLEAR); Urine Color Yellow (Yellow); Urobilinogen Urine Norm (Negative); pH Urine 5 (5-7)
[2022-11-28] MEDS: amlodipine 5 mg Tablet PO (18:56)
[2022-11-28 18:59] VITALS: BP 156/113; RESP 16; O2SAT 98
[2022-11-28 19:00] VITALS: BP 156/113; PULSE 83; RESP 16; TEMP 36.7; O2SAT 98
== END 2022-11-28 19:01 | disposition home or self-care (01) ==
PROVIDERS: Emergency Provider Family Medicine; PCP Family Medicine
DX: R00.0 Tachycardia, unspecified (principal); I10 Essential (primary) hypertension; Z87.891 Personal history of nicotine dependence; J44.9 Chronic obstructive pulmonary disease, unspecified; E78.5 Hyperlipidemia, unspecified; E11.9 Type 2 diabetes mellitus without complications
CPT/HCPCS: 36415; 71045; 80053; 81003; 85025; 93005; 99285

== ENCOUNTER 2022-12-04 06:00 | Outpatient (RCR) | payer MEDICARE, MEDICAID, SELFPAY | END 2023-01-03 23:59 | disposition home or self-care (01) | LOC: PULRHB 06:00 | PROVIDERS: PCP Family Medicine; Visit Provider Internal Medicine Cardiovascular Disease | DX: J44.9 Chronic obstructive pulmonary disease, unspecified (principal) | CPT/HCPCS: 94625 ==

== ENCOUNTER 2023-01-04 06:00 | Outpatient (RCR) | payer MEDICARE, MEDICAID, SELFPAY | END 2023-02-02 23:59 | disposition home or self-care (01) | LOC: PULRHB 06:00 | PROVIDERS: PCP Family Medicine; Visit Provider Internal Medicine Cardiovascular Disease | DX: J44.9 Chronic obstructive pulmonary disease, unspecified (principal) | CPT/HCPCS: 94625 ==

== ENCOUNTER → 2023-01-17 11:27 | Outpatient (BNVA) | payer MEDICARE, MEDICAID, SELFPAY | PROVIDERS: PCP Family Medicine; Visit Provider Family Medicine | DX: I10 Essential (primary) hypertension (principal); D64.9 Anemia, unspecified; J96.11 Chronic respiratory failure with hypoxia | CPT/HCPCS: 80053; 80061; 85025 ==

== ENCOUNTER 2023-02-03 06:00 | Outpatient (RCR) | payer MEDICARE, MEDICAID, SELFPAY | END 2023-03-05 23:59 | disposition home or self-care (01) | LOC: PULRHB 06:00 | PROVIDERS: PCP Family Medicine; Visit Provider Internal Medicine Cardiovascular Disease | DX: J44.9 Chronic obstructive pulmonary disease, unspecified (principal) | CPT/HCPCS: 94625 ==

== ENCOUNTER → 2023-02-06 14:25 | Outpatient (BNVA) | payer MEDICARE, MEDICAID, SELFPAY | PROVIDERS: PCP Family Medicine; Visit Provider Family Medicine | DX: D50.9 Iron deficiency anemia, unspecified (principal); J96.21 Acute and chronic respiratory failure with hypoxia; I50.9 Heart failure, unspecified | CPT/HCPCS: 80048; 85025 ==

== ENCOUNTER → 2023-02-20 13:50 | Outpatient (BNVA) | payer MEDICARE, MEDICAID, SELFPAY | PROVIDERS: PCP Family Medicine; Visit Provider Internal Medicine | DX: D64.9 Anemia, unspecified (principal); I10 Essential (primary) hypertension; J44.9 Chronic obstructive pulmonary disease, unspecified; I26.94 Multiple subsegmental thrombotic pulmonary emboli without acute cor pulmonale; D50.9 Iron deficiency anemia, unspecified; E78.2 Mixed hyperlipidemia; I65.23 Occlusion and stenosis of bilateral carotid arteries; Z87.891 Personal history of nicotine dependence | CPT/HCPCS: 99214 ==

== ENCOUNTER 2023-03-06 06:00 | Outpatient (RCR) | payer MEDICARE, MEDICAID, SELFPAY | END 2023-04-05 23:59 | disposition home or self-care (01) | LOC: PULRHB 06:00 | PROVIDERS: PCP Family Medicine; Visit Provider Internal Medicine Cardiovascular Disease | DX: J44.9 Chronic obstructive pulmonary disease, unspecified (principal) | CPT/HCPCS: 94625 ==

== ENCOUNTER 2023-03-07 14:41 | Outpatient (CLI) | payer MEDICARE, MEDICAID, SELFPAY ==
--- NOTE | 2023-03-07 15:00 | USCV_ITS ---
Ayah Sanchez Age: 77 Gender: F : 1945 Exam Date: 03/07/2023 15:25 Ordering Phys: Wojciech Siddiqui M.D ([email or web address]) Technologist: CT Exam Location: [facility] – [place] Indication: sob/cp BP: 130 / 85 HR: 65 Rhythm: Sinus Technical Quality: Adequate MEASUREMENTS (Male / Female) Normal Values 2D ECHO LVOT Diameter 2.2 cm LV Ejection Fraction MOD 2C 56.4 % LV Ejection Fraction 2C AL 55.3 % LA Diameter 4.6 cm Aorta at Sinotubular Diameter 2.5 cm IVC Diameter 2.0 cm M-MODE Aortic Annulus Diameter 3.1 cm LA Ao Ratio MM 1.8 MV E Point Septal Separation 0.9 cm DOPPLER AV Peak Velocity 152.0 cm/s LVOT Peak Velocity 146.0 cm/s AV Area Cont Eq vti 3.6 cm squared AV Area Cont Eq pk 3.8 cm squared MV E' Velocity 11.0 cm/s TR Peak Velocity 140.0 cm/s TR Peak Gradient 7.8 mmHg TV Peak E Velocity 67.0 cm/s Right Atrial Pressure 3.0 mmHg Pulmonary Artery Systolic Pressu 10.8 mmHg PV Peak Velocity 149.0 cm/s FINDINGS Left Ventricle Left ventricle is normal in size. LV systolic function is normal with EF of 55 to 60%. No regional wall motion abnormalities are seen. Left ventricular hypertrophy seen. Right Ventricle Normal in size and function Right Atrium Normal in size Left Atrium Dilated. Mitral Valve Moderate mitral annular calcification. Mild mitral regurgitation. Aortic Valve Aortic valve is thickened. No significant stenosis or regurgitation. Tricuspid Valve Trace tricuspid regurgitation. Insufficient TR jet to calculate RVSP. Pulmonic Valve Mild pulmonic regurgitation. Pericardium Normal Aorta Normal in size IVC Appears to be normal CONCLUSIONS LV systolic function is normal with EF of 55 to 60%. Left ventricular hypertrophy seen. Left atrial dilation Mild mitral regurgitation Trace tricuspid regurgitation Mild pulmonic regurgitation. Compared to prior echocardiogram from 08/2022, no significant changes are seen Wojciech Siddiqui MD (Electronically Signed) Final Date: 11 March 2023 15:19 S
== END 2023-03-07 14:42 | disposition home or self-care (01) ==
LOC: RAD 14:41
PROVIDERS: PCP Family Medicine; Visit Provider Internal Medicine
DX: R07.9 Chest pain, unspecified (principal); R06.02 Shortness of breath; I51.7 Cardiomegaly; I37.1 Nonrheumatic pulmonary valve insufficiency; I34.0 Nonrheumatic mitral (valve) insufficiency
CPT/HCPCS: 80048; 85027; 93306

== ENCOUNTER 2023-03-15 08:18 | Oncology outpatient (recurring) (ONCR) | payer MEDICARE, MEDICAID, SELFPAY ==
[2023-03-15] VITALS (10 sets, daily range): BP systolic 122–166; BP diastolic 53–84; PULSE 59–78; RESP 16–17; TEMP 36.4–37; O2SAT 90–98
[2023-03-15 08:58] LABS: Basophils # 0.1 10^3/uL (0.0-0.1); Basophils % 0.8 %; Eosinophils # 0.3 10^3/uL (0.0-0.8); Hematocrit 23.4 % (36-47); Lymphocytes # 1.3 10^3/uL (0.8-4.8); Lymphocytes % 20.2 %; Mean Corpuscular HGB Conc 27.4 g/dL (30-55); Mean Corpuscular Hemoglobin 20.8 pg (27-33); Mean Platelet Volume 9.9 fL (7.4-10.4); Monocytes # 0.6 10^3/uL (0.2-0.9); Neutrophils % 64.5 %; Nucleated Red Blood Cells % 0 %; Platelet Count 397 10^3/cmm (157-399); Red Blood Count 3.08 10^6/uL (3.85-5.65); Red Cell Distribution Width 15.9 % (12.1-15.1); White Blood Count 6.65 10^3/uL (3.29-11.43)
[2023-03-15] MEDS: sodium chloride 0.9% 250 mL Bag IV (10:14)
--- NOTE | 2023-03-15 13:33 | PC.NURSE ---
Patient scheduled today for PRBC transfusion per Dr. Kelley. Written order stated to repeat HGB/HCT after transfusion . This nurse called [facility] and spoke to Dr. Kelley's nurse to clarify when patient should have HGB/HCT lab repeated. Dr. Kelley stated to have patient's lab drawn 2 hours after transfusion. This nurse called [facility] to verify that patient can have HGB/HCT drawn today, 03/15/22. Patient educated to go to [facility] lab 2 hours after PRBC transfusion. Patient verbalized understanding.
== END 2023-04-05 23:59 | disposition home or self-care (01) ==
PROVIDERS: PCP Family Medicine; Visit Provider Family Medicine
DX: D50.9 Iron deficiency anemia, unspecified (principal); J96.11 Chronic respiratory failure with hypoxia; I50.42 Chronic combined systolic (congestive) and diastolic (congestive) heart failure; D64.9 Anemia, unspecified
CPT/HCPCS: 36415; 36430; 85014; 85018; 85025; 86850; 86900; 86920; J7050; P9016

== ENCOUNTER → 2023-03-16 13:40 | Outpatient (BNVA) | payer MEDICARE, MEDICAID, SELFPAY | PROVIDERS: PCP Family Medicine; Visit Provider Family Medicine | DX: D50.9 Iron deficiency anemia, unspecified (principal); D64.9 Anemia, unspecified | CPT/HCPCS: 85014; 85018 ==

== ENCOUNTER → 2023-04-03 14:30 | Outpatient (BNVA) | payer MEDICARE, MEDICAID, SELFPAY | PROVIDERS: PCP Family Medicine; Referring Provider Family Medicine; Visit Provider Internal Medicine Pulmonary Disease | DX: J43.2 Centrilobular emphysema (principal); J96.11 Chronic respiratory failure with hypoxia; Z87.891 Personal history of nicotine dependence; Z99.81 Dependence on supplemental oxygen; I50.42 Chronic combined systolic (congestive) and diastolic (congestive) heart failure; D50.0 Iron deficiency anemia secondary to blood loss (chronic); Z12.2 Encounter for screening for malignant neoplasm of respiratory organs; Z86.711 Personal history of pulmonary embolism | CPT/HCPCS: 99204 ==

== ENCOUNTER 2023-04-06 06:00 | Outpatient (RCR) | payer MEDICARE, MEDICAID, SELFPAY | END 2023-05-04 23:59 | disposition home or self-care (01) | LOC: PULRHB 06:00 | PROVIDERS: PCP Family Medicine; Visit Provider Internal Medicine Cardiovascular Disease | DX: J44.9 Chronic obstructive pulmonary disease, unspecified (principal) | CPT/HCPCS: 94625 ==

== ENCOUNTER → 2023-04-25 14:44 | Outpatient (BNVA) | payer MEDICARE, MEDICAID, SELFPAY | PROVIDERS: PCP Family Medicine; Visit Provider Family Medicine | DX: D64.9 Anemia, unspecified (principal); J20.9 Acute bronchitis, unspecified; E78.2 Mixed hyperlipidemia | CPT/HCPCS: 80053; 82728; 83540; 84443; 85025 ==

== ENCOUNTER 2023-05-05 06:00 | Outpatient (RCR) | payer MEDICARE, MEDICAID, SELFPAY | END 2023-06-04 23:59 | disposition home or self-care (01) | LOC: PULRHB 06:00 | PROVIDERS: PCP Family Medicine; Visit Provider Internal Medicine Cardiovascular Disease | DX: J44.9 Chronic obstructive pulmonary disease, unspecified (principal) | CPT/HCPCS: 94625 ==

== ENCOUNTER 2023-06-05 06:00 | Outpatient (RCR) | payer MEDICARE, MEDICAID, SELFPAY | END 2023-07-04 23:59 | disposition home or self-care (01) | LOC: PULRHB 06:00 | PROVIDERS: PCP Family Medicine; Visit Provider Internal Medicine Cardiovascular Disease | DX: J44.9 Chronic obstructive pulmonary disease, unspecified (principal) | CPT/HCPCS: 94625 ==

== ENCOUNTER → 2023-06-27 14:18 | Outpatient (BNVA) | payer MEDICARE, MEDICAID, SELFPAY | PROVIDERS: PCP Family Medicine; Visit Provider Family Medicine | DX: E87.6 Hypokalemia (principal); I50.42 Chronic combined systolic (congestive) and diastolic (congestive) heart failure; D64.9 Anemia, unspecified; D50.9 Iron deficiency anemia, unspecified; J43.2 Centrilobular emphysema; M10.9 Gout, unspecified; I10 Essential (primary) hypertension; Z79.899 Other long term (current) drug therapy | CPT/HCPCS: 80048; 82728; 83540; 84550; 85027 ==

== ENCOUNTER 2023-07-28 15:29 | Inpatient (IN) | payer MEDICARE, MEDICAID, SELFPAY ==
[2023-07-28] VITALS (23 sets, daily range): BP systolic 142–198; BP diastolic 65–92; PULSE 62–106; RESP 16–27; TEMP 36.6–36.7; O2SAT 95–98; BMI 30.7
--- NOTE | 2023-07-28 15:39 | W.ED.NAVMDI ---
HPI - Nausea/Vomiting/Diarrhea General: Chief complaint: Nausea/Vomiting/Diarrhea Stated complaint: n/v Time Seen by Provider: 07/28/23 15:29 Source: patient and EMS Mode of arrival: EMS Limitations: no limitations History of Present Illness: 77-year-old female states she had nausea vomiting since yesterday. She states she has had multiple episodes currently mainly dry heaving. She states she does not have any severe abdominal pains had some slight abdominal cramping she denies any diarrhea patient denies any fevers patient did receive Zofran routes had some slight improvement. Associated nausea: Yes Associated symtoms: Reports nausea; Denies chest pain, dysuria or headache(s) Review of Systems Const: Denies: fever(s), chills, body aches or change in appetite ENMT: Denies: throat pain or dental pain Card: Denies: chest pain Resp: Denies: dyspnea GI: Reports: nausea and vomiting; Denies: abdominal pain or diarrhea : Denies: dysuria Musc: Denies: neck pain or back pain Skin/Breast: Denies: rash Neuro: Denies: headache(s) PFSH ED PFSH: Medical History Anemia Chest pain AVM (arteriovenous malformation) HTN (hypertension) Dark stools Pulmonary embolism COPD (chronic obstructive pulmonary disease) Hiatal hernia Diverticulosis Colon polyps Presence of intrathecal pump Bilateral carotid artery stenosis Hyperlipidemia associated with type 2 diabetes mellitus Ventricular hypertrophy Surgical History H/O: hysterectomy H/O cataract extraction Hx of appendectomy Family History Mother CAD (coronary artery disease), Onset Age: 70 Cancer Dementia Sister Diabetes Denies family history of Clotting disorder Chronic kidney disease (CKD) Suicide Anesthesia complication Bleeding disorder Lung disease Stroke Social History Smoking and tobacco/nicotine status: former use of tobacco/nicotine Quit status (tobacco/nicotine): has quit using Year quit tobacco: 2022 Former quit date comment: 1.5 ppd X 50 Alcohol intake: never Substance/Drug Use: never Female Reproductive History: Spontaneous abortions: No Physical Exam Const: COMMON NORMALS: no acute distress, patient oriented x3 and healthy appearing HENMT: COMMON NORMALS: normocephalic and atraumatic HEAD & SCALP: normocephalic and atraumatic Eye: COMMON NORMALS: Equal, round and reactive pupils present and EOMs intact bilaterally PUPIL: Yes Equal, round and reactive pupils present Neck/C-Spine: COMMON NORMALS: full ROM and supple Chest: COMMONS NORMALS: normal inspection of the chest and normal palpation of entire chest wall Resp: COMMON NORMALS: normal respiratory effort, No retractions, No use of accessory muscles and clear to auscultation bilaterally AUSCULTATION: clear to auscultation bilaterally Cardio: COMMON NORMALS: regular rate, regular rhythm and No murmurs present (Cardio) RATE: regular rate RHYTHM: regular rhythm GI: COMMON NORMALS: Normal to inspection, nondistended, normoactive bowel sounds present, Soft to palpation, non-tender and no masses PALPATION: Yes Soft to palpation Extremity: COMMON NORMALS: normal to inspection and full ROM Neuro: COMMON NORMALS: patient oriented x3, moves all extremities and no focal motor deficits Psych: COMMON NORMALS: mental status grossly normal, Normal thought process present and cooperative THOUGHT PROCESS: Normal thought process present Skin: COMMON NORMALS: no rashes or lesions noted and no wounds GENERAL SKIN EXAM: no rashes or lesions noted Course Reevaluation(s): Reevaluation #1: Went in to reassess patient she states she started having severe left-sided arm pain that started just 5 minutes ago at 1640. She denies any chest pain I had ordered the EKG she has significant ST depression in all leads I have spoke to Dr. Charles we will give patient Brilinta and heparin and she is going to go to the [facility] emergently at this time Time: 16:45 Vital Signs: Vital signs: Vital Signs Temperature 98.0 F 07/28/23 15:30 Pulse Rate 75 07/28/23 17:00 Respiratory Rate 18 07/28/23 17:00 Blood Pressure 150/65 07/28/23 17:00 Pulse Oximetry 97 07/28/23 17:00 Oxygen Delivery Me thod Nasal Cannula 07/28/23 17:00 Oxygen Flow Rate 2 07/28/23 17:00 MDM - Nausea/Vomiting/Diarrhea Medical Decision Making Patient presented here with nausea and vomiting started having some left arm pain while here troponin was only 16 but she did have significant ST depressions noted on her EKG I did contacted Dr. Charles patient was given Brilinta heparin and taken to the [facility] for concerns of ischemic heart disease Medical Records I reviewed the patient's medical records. Lab Data I reviewed the patient's lab results. 07/28/23 15:13 07/28/23 15:13 Laboratory Results WBC 9.90 10^3/uL (3.29-11.43) 07/28/23 15:13 RBC 3.94 10^6/uL (3.85-5.65) 07/28/23 15:13 Hgb 9.60 g/dL (11.27-16.99) L 07/28/23 15:13 Hct 31.4 % (36-47) L 07/28/23 15:13 MCV 79.7 fl (85-98) L 07/28/23 15:13 MCH 24.4 pg (27-33) L 07/28/23 15:13 MCHC 30.6 g/dL (30-55) 07/28/23 15:13 RDW 14.3 % (12.1-15.1) 07/28/23 15:13 Plt Count 475 10^3/cmm (157-399) H 07/28/23 15:13 MPV 10.8 fL (7.4-10.4) H 07/28/23 15:13 Neut % (Auto) 85.7 % 07/28/23 15:13 Lymph % (Auto) 10.7 % 07/28/23 15:13 [place] % (Auto) 2.4 % 07/28/23 15:13 Eos % (Auto) 0.0 % 07/28/23 15:13 Baso % (Auto) 0.3 % 07/28/23 15:13 Neut # (Auto) 8.48 10^3/uL (1.8-7.7) H 07/28/23 15:13 Lymph # (Auto) 1.1 10^3/uL (0.8-4.8) 07/28/23 15:13 [place] # (Auto) 0.2 10^3/uL (0.2-0.9) 07/28/23 15:13 Eos # (Auto) 0.0 10^3/uL (0.0-0.8) 07/28/23 15:13 Baso # (Auto) 0.0 10^3/uL (0.0-0.1) 07/28/23 15:13 Nucleated RBC % (auto) 0 % 07/28/23 15:13 Nucleated RBCs # 0.0 /100WBC 07/28/23 15:13 Sodium 135 mmol/L (136-145) L 07/28/23 15:13 Potassium 3.9 mmol/L (3.5-5.1) 07/28/23 15:13 Chloride 98 mmol/L (98-107) 07/28/23 15:13 Carbon Dioxide 24 mmol/L (22-29) 07/28/23 15:13 Anion Gap 16.9 (5-19) 07/28/23 15:13 BUN 11 mg/dL (8-23) 07/28/23 15:13 Creatinine 1.1 mg/dL (0.5-0.9) H 07/28/23 15:13 GFR Calculation Not Reportable 07/28/23 15:13 Glucose 171 mg/dL (65-115) H 07/28/23 15:13 Calculated Osmolality 283 mOsm/kg (285-295) L 07/28/23 15:13 Calcium 10.1 mg/dL (8.5-10.5) 07/28/23 15:13 Total Bilirubin 0.5 mg/dL (0.15-1.2) 07/28/23 15:13 AST 20 U/L (0-32) 07/28/23 15:13 ALT 13 U/L (0-33) 07/28/23 15:13 Alkaline Phosphatase 127 U/L (35-105) H 07/28/23 15:13 Troponin T Baseline 16 ng/L (0-10) H 07/28/23 15:13 Total Protein 8.4 g/dL (6.6-8.7) 07/28/23 15:13 Albumin 4.5 g/dL (3.5-5.2) 07/28/23 15:13 Globulin 3.9 g/dL (1.3-4.6) 07/28/23 15:13 Lipase 30 U/L (13-60) 07/28/23 15:13 All radiology interpretation(s) finalized by discharge Discharge Plan Discharge Patient Disposition: Admitted As Inpatient Clinical Impression: Vomiting, Chest pain Condition: Stable Prescriptions: No Action albuterol sulfate [Ventolin HFA] 90 mcg/actuation HFA aerosol inhaler 2 puff inhalation Q4H PRN (Reason: shortness of breath or wheezing) Qty: 18 5RF atorvastatin 80 mg tablet 80 mg PO DAILY Qty: 90 2RF amlodipine 5 mg tablet 5 mg PO DAILY PRN (Reason: hypertension) Qty: 30 2RF Rx Instructions: take for blood pressures over 150 systolic (top number) nitroglycerin 0.4 mg tablet, sublingual See Rx Instructions .ROUTE .COMPLEX Qty: 25 0RF Dose Instruction: DISSOLVE 1 TABLET UNDER THE TONGUE EVERY 5 MINUTES NEEDED FOR CHEST PAIN. DO NOT EXCEED A TOTAL OF 3 DOSES IN 15 MINUTES. Rx Instructions: DISSOLVE 1 TABLET UNDER THE TONGUE EVERY 5 MINUTES NEEDED FOR CHEST PAIN. DO NOT EXCEED A TOTAL OF 3 DOSES IN 15 MINUTES. Incruse Ellipta 62.5 mcg/actuation blister with device 1 inh inhalation DAILY Qty: 30 6RF apixaban 2.5 mg tablet 2.5 mg PO BID Qty: 60 5RF cetirizine [Zyrtec] 10 mg tablet 10 mg PO DAILY PRN (Reason: allergy symptoms) Qty: 30 2RF fluticasone propionate [Flonase Allergy Relief] 50 mcg/actuation spray,suspension 1 spray intranasal BID Qty: 16 2RF Rx Instructions: administer into each nostril celecoxib [Celebrex] 50 mg capsule 50 mg PO BID Qty: 60 1RF pantoprazole 40 mg tablet,delayed release (DR/EC) See Rx Instructions .ROUTE .COMPLEX Qty: 180 1RF Dose Instruction: TAKE 1 TABLET BY MOUTH TWICE DAILY Rx Instructions: TAKE 1 TABLET BY MOUTH TWICE DAILY furosemide 40 mg tablet See Rx Instructions .ROUTE .COMPLEX Qty: 90 3RF Dose Instruction: TAKE 1 TABLET BY MOUTH EVERY DAY Rx Instructions: TAKE 1 TABLET BY MOUTH EVERY DAY potassium chloride 10 mEq capsule, extended release See Rx Instructions .ROUTE .COMPLEX Qty: 90 3RF Dose Instruction: take 1 capsule BY MOUTH EVERY DAY Rx Instructions: take 1 capsule BY MOUTH EVERY DAY Referrals: Regulo Kelley DO [Primary Care Provider] - Coding Level of Care Code ED Fish Packer for Chg Gregorio
[2023-07-28 15:47] LABS: Basophils % 0.3 %; Hematocrit 31.4 % (36-47); Lymphocytes # 1.1 10^3/uL (0.8-4.8); Lymphocytes % 10.7 %; Mean Corpuscular HGB Conc 30.6 g/dL (30-55); Mean Corpuscular Hemoglobin 24.4 pg (27-33); Mean Corpuscular Volume 79.7 fl (85-98); Mean Platelet Volume 10.8 fL (7.4-10.4); Monocytes # 0.2 10^3/uL (0.2-0.9); Monocytes % 2.4 %; Neutrophils # 8.48 10^3/uL (1.8-7.7); Neutrophils % 85.7 %; Nucleated Red Blood Cells % 0 %; Platelet Count 475 10^3/cmm (157-399); Red Blood Count 3.94 10^6/uL (3.85-5.65); Red Cell Distribution Width 14.3 % (12.1-15.1)
[2023-07-28] MEDS: sodium chloride 0.9% 500 ML 999 ML IV (15:52)
[2023-07-28] MEDS: ondansetron 2 mg/ML SDV 2 mL 4 MG IVP (16:02)
[2023-07-28] MEDS: hyDRALAzine 20 mg/mL INJ 1 mL 10 MG IVP (16:02)
[2023-07-28] MEDS: morphine 4 mg/mL SDV 1 mL IVP (16:03)
[2023-07-28 16:04] LABS: Alanine Aminotransferase 13 U/L (0-33); Albumin Level 4.5 g/dL (3.5-5.2); Alkaline Phosphatase 127 U/L (35-105); Anion Gap 16.9 (5-19); Aspartate Amino Transferase 20 U/L (0-32); Blood Urea Nitrogen 11 mg/dL (8-23); Calcium 10.1 mg/dL (8.5-10.5); Carbon Dioxide 24 mmol/L (22-29); Chloride 98 mmol/L (98-107); Globulin 3.9 g/dL (1.3-4.6); Glucose 171 mg/dL (65-115); Lipase 30 U/L (13-60); Osmolality Calculated 283 mOsm/kg (285-295); Potassium 3.9 mmol/L (3.5-5.1); Sodium 135 mmol/L (136-145); Total Bilirubin 0.5 mg/dL (0.15-1.2); Total Protein 8.4 g/dL (6.6-8.7)
--- NOTE | 2023-07-28 16:44 | ECG_ITS ---
[facility] Test Date: 2023-07-28 Pat Name: Ayah Sanchez Department: Room: Gender: Female A R Specialist: : 1945 Requested By: Vignesh Ferris Order Number: [id number] Landon MD: Wojciech Siddiqui M.D. Measurements Intervals [place] Rate: 86 P: 68 SD: 131 QRS: 44 QRSD: 104 T: 84 QT: 390 QTc: 469 Interpretive Statements SINUS RHYTHM WITH OCCASIONAL SUPRAVENTRICULAR PREMATURE COMPLEXES POSSIBLE LEFT VENTRICULAR HYPERTROPHY [VOLTAGE CRITERIA PLUS LAE OR QRS WIDENING] MARKED ST DEPRESSION, CONSIDER SUBENDOCARDIAL INJURY [0.2+ mV ST DEPRESSION] Compared to ECG 11/28/2022 15:00:56 ST (T wave) deviation now present T-wave abnormality no longer present Possible ischemia no longer present Electronically Signed On 07-28-2023 20:20:57 CDT by Wojciech Siddiqui M.D. [id number]
--- NOTE | 2023-07-28 16:57 | ECG_ITS ---
[facility] Test Date: 2023-07-28 Pat Name: Ayah Sanchez Department: Room: Gender: Female Supervisor Metal Placing: : 1945 Requested By: Vignesh Ferris Order Number: [id number] Landon MD: Wojciech Siddiqui M.D. Measurements Intervals [place] Rate: 90 P: 55 MN: 128 QRS: 39 QRSD: 99 T: 78 QT: 392 QTc: 481 Interpretive Statements SINUS RHYTHM WITH OCCASIONAL SUPRAVENTRICULAR PREMATURE COMPLEXES POSSIBLE LEFT VENTRICULAR HYPERTROPHY [VOLTAGE CRITERIA PLUS LAE OR QRS WIDENING] MARKED ST DEPRESSION, CONSIDER SUBENDOCARDIAL INJURY [0.2+ mV ST DEPRESSION] Compared to ECG 07/28/2023 16:53:22 No significant changes Electronically Signed On 07-28-2023 20:20:51 CDT by Wojciech Siddiqui M.D. [id number]
--- NOTE | 2023-07-28 17:10 | XACV_ITS ---
Exam Room: [facility] Ht: 163 cm Wt: 78 kg BSA: 1.90 m2 Gender: Female : 1945 Any Known Allergies: Sulfa Exam Priority: Routine Indication(s): - Unstable angina Procedure(s): Procedure Description: Diagnostic procedure Procedure Description: PCI procedure Procedure Description: Left Heart Catheterization Procedure Description: Coronary IVUS Procedure Description: Drug Eluting Coronary Stent Procedure Description: PTCA Procedure Description: Miscellaneous Procedure Description: ACT Procedure Description: Coronary Angiography Diagnostic Cath Status: Urgent Diagnostic Findings * Left Main has mild to moderate disease. * Left Anterior Descending is a very tortuous vessel. Has mild to moderate diffuse disease. * Circumflex has diffuse mild to moderate diffuse disease. * Ostial RCA has 70% stenosis. With any engagement of vessel, patient started getting chest pain and pressure dampened. * Mid Right Coronary Artery: severe 90% stenosis, ALBERTO: 3 flow. * Coronary angiography shows right dominance. PCI Status: Urgent PCI Indication: PCI for high risk Non-STEMI or unstable angina Interventional Findings * Procedure detail: We first confirmed that there is no severe disease in the left main artery with IVUS. Left main artery was engaged with XB 3.5 guide catheter. IV heparin was administered to maintain anticoagulation. 0.014 run-through guidewire was used to cross the left main artery and was put in circumflex vessel. We then performed IVUS. Minimal luminal area of 11 mm2 was obtained. We then turned our attention to RCA. RCA was engaged with JR4 guide catheter. Run-through wire was used to cross the stenosis. We predilated the mid RCA stenosis with 2.5 x 12 mm semicompliant balloon. This was followed by placement of 3.5 x 22 mm resolute Steve drug-eluting stent. We postdilated the stent with 3.75 x 15 mm NC balloon after IVUS evaluation. Ostial disease could not be assessed with IVUS as guide was jumping into the vessel with pullback of IVUS catheter. Given significant angiographic disease, severe dampening of pressures with any engagement of vessel with diagnostic or guide catheter, we decided to treat it. Ostial RCA was predilated with 3.75x15 mm NC balloon. This was followed with placement of 4.0 x 15 mm resolute [place] drug-eluting stent. At this time final angiogram was performed that showed excellent stent expansion, no residual stenosis and ALBERTO-3 flow. IVUS confirmed coverage of ostium of RCA. Guidewire and guide catheter were removed. Patient left the Caustic Operator in a stable condition.. * Proximal Right Coronary Artery: 70% stenosis treated with a MDT NC EUPHORA RX [id number] BALLOON, and MDT R STEVE 4.0X15 RUT. 0% residual stenosis, ALBERTO: 3 flow. * Mid Right Coronary Artery: 90% stenosis treated with a AB TREK 2.50X12 RX BALLOON, MDT R STEVE 3.5X22 RUT, and MDT NC EUPHORA RX [id number] BALLOON. 0% residual stenosis, ALBERTO: 3 flow. Conclusions 1. Critical mid RCA stenosis s/p revascularization with 1 stent. Severe ostial RCA stenosis s/p successful revascularization with 1 stent.. 2. Proximal Right Coronary Artery was treated with a Balloon, and Drug Eluting Stent. 3. Mid Right Coronary Artery was treated with a Balloon, Drug Eluting Stent, and Balloon. Recommendations * Eliquis and plavix for atleast 1 year. * High intensity statin therapy. * Outpatient cardiology follow up in 4 weeks. Interventional RX Recommendation: PCI w/o planned CABG Diagnostic RX Recommendation: PCI w/o planned CABG Anticoagulation: Heparin Pressures Phase:Rest AO : 147 / 84 ( 113 ) @ 2:36:36 PM 175 / 70 ( 110 ) @ 2:36:36 PM 171 / 64 ( 108 ) @ 2:36:36 PM 127 / 52 ( 83 ) @ 2:36:36 PM 118 / 54 ( 80 ) @ 2:36:36 PM 80 / 53 ( 64 ) @ 2:36:36 PM 120 / 66 ( 92 ) @ 2:36:36 PM 130 / 73 ( 101 ) @ 2:36:36 PM 80 / 28 ( 47 ) @ 2:36:36 PM 155 / 75 ( 111 ) @ 2:36:36 PM 133 / 77 ( 104 ) @ 2:36:36 PM LV : 164 / -5 / 17 @ 2:36:36 PM 167 / -8 / 21 @ 2:36:36 PM Valves Phase:DefaultPhase AV : 0.0 @ 7:36:36 PM 0.0 @ 7:36:36 PM AV Mean Gradient: 0.0 @ 7:36:36 PM 0.0 @ 7:36:36 PM Clinical Evaluation EBL: 5mL-10mL Procedural Details Admit Source: Emergency department. Pre-Procedure Time Out. Identified patient by full name and date of as verbalized by the patient/guarantor. Does the consent match the physician's order: N/A Emergent. Accurate & Complete Informed Consent: N/A Emergent. Inpatient/Outpatient History & Physical on Chart: N/A Emergent. If H&P is completed, is and addenduem needed: N/A Emergent; If yes, is the addendum complete: N/A Emergent. Visualize and Verify Site with Patient/Guarantor: N/A. Relevant Radiology Images available: N/A. The risks, benefits, and alternatives of sedation and/or procedure were discussed by physician. The patient agrees to continue. Procedure started. [facility] Clinical Fraility Score: 5: Mildly Frail. Caustic Operator Indications: Worsening Angina. Chest Pain Symptom Assessment: Typical Angina Symptoms. Cardiovascular Instability: Yes, if yes, Persistant Ischemic Symptoms. Correct patient, site and procedure confirmed by cath team. Current diagnosis: Unstable angina. PERRLA. 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 Lungs clear x 5 lobes. IV Site on Arrival: 20 gauge in the right anticubital. IV Site on Arrival: 20 gauge in the left anticubital. IV Fluids: 0.9% NaCl at KVO. 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 Pre Procedural Pulses: right radial was 3+. Oxygen started at 2liters/min via nasal canula. right groin was prepped with chloroprep then draped in the usual sterile fashion. right radial was prepped with chloroprep then draped in the usual sterile fashion. Baseline sample Acquired. HR: 91 BPM. Physician notified. Physician arrived. Physician scrubbed in. Immediate Pre-Procedure Time Out. Correct Patient: Yes; Correct Procedure: Yes; Correct Site: Yes; Correct Patient Position: Yes; Correct Supplies: Yes; Dried Flammable Prep: Yes; Blood Products Available: N/A;. Lidocaine 1% infiltrated to the right radial. Arterial access obtained. A 5 czech TIG catheter in over wire. Wire out. Hand injection performed through the catheter. Glidewire inserted. Wire and catheter out. Switching to femoral access due to tortuosity. Lidocaine 1% infiltrated to the right groin. Arterial access obtained with micropuncture set. A 5 czech JL4 catheter in over wire. Exchange wire out. Glidewire inserted. Glidewire out. Exchange wire in. Exchange wire out. Multiple views taken of left coronary artery. Catheter removed over the exchange wire. A 5 czech JR4 catheter in over wire. EDP Sample taken: LV 164/-6,17; HR: 95 BPM; SpO2: 99%. Pullback taken: LV 167/-9,21; AO 175/70(110); Mean: 0mmHg, Peak to Peak: 0mmHg, SEP: 24sec/min; HR: 98 BPM; SpO2: 99%. Multiple views taken of right coronary artery. Catheter advanced across the LV. Catheter removed over the exchange wire. 6 czech XB 3.5 guide catheter was inserted over the wire. Multiple views taken of left coronary artery. Runthrough guidewire was advanced through the guide catheter to lesion in the left main. IVUS catheter inserted. IVUS run performed of L main. IVUS catheter out. AP pads applied to patient chest. Guide catheter out. Physician review of cine films. 6 czech JR 4SH guide catheter was inserted over the wire. ACT drawn. Results 218 seconds. Therapeutic limits - pre-heparin administration 90-150 seconds and monitoring heparin during a vascular procedure >250 seconds. Runthrough guidewire was advanced through the guide catheter to lesion in the mid RCA. Balloon inserted to lesion in the mid RCA. Inflation number : 1 A AB TREK 2.50X12 RX BALLOON was prepped and advanced across the Mid RCA , then inflated to 8 BECKI for 0:08 seconds. Balloon out. Results checked. Stent inserted to lesion in the mid RCA. Inflation Number : 2 A MDT R STEVE 3.5X22 RUT -Lot Number# [id number] exp 09/11/2025 was prepped and advanced across the Mid RCA. The stent was deployed at 12 BECKI for 0:20 seconds. Stent balloon out over wire. IVUS catheter inserted. Inflation number : 3 A MDT NC EUPHORA RX [id number] BALLOON was prepped and advanced across the Mid RCA , then inflated to 16 BECKI for 0:15 seconds. Balloon out. IVUS run performed of RCA. IVUS catheter removed. Results checked. Balloon inserted to lesion in the mid RCA. ACT drawn. Results 308 seconds. Therapeutic limits - pre-heparin administration 90-150 seconds and monitoring heparin during a vascular procedure >250 seconds. Inflation number: 1 The MDT NC EUPHORA RX [id number] BALLOON was reinflated across the Prox RCA, to 10 BECKI for 0:08 seconds. Inflation number: 2 The MDT NC EUPHORA RX [id number] BALLOON was reinflated across the Prox RCA, to 12 BECKI for 0:12 seconds. Balloon out. Results checked. Balloon inserted to lesion in the prox RCA. banquet supervisor updated family in waiting room. 2nd Runthough wire inserted and positioned in the aorta. Stent inserted to lesion in the prox RCA. 2nd Runthrough wire removed. Inflation Number : 3 A MDT R STEVE 4.0X15 RUT -Lot Number# [id number] Exp 07/19/2024 was prepped and advanced across the Prox RCA. The stent was deployed at 12 BECKI for 0:14 seconds. Stent balloon out over wire. Results checked. IVUS catheter in over the wire. IVUS run performed of Proximal RCA. IVUS catheter removed. Results checked. Guide catheter and wire out. ACT drawn. Results 210 seconds. Therapeutic limits - pre-heparin administration 90-150 seconds and monitoring heparin during a vascular procedure >250 seconds. Physician scrubbed out. A TR Band was successful obtaining hemostatsis at the Right Radial artery insertion site. A Suture was successful obtaining hemostatsis at the Right Femoral artery insertion site. Sheath(s) sutured into position with 2-0 silk and sterile 4x4's and Op-site applied over the site. No oozing or signs and symptoms of hematoma noted. Post Procedure: Pulses reassessed and unchanged. PERRLA. 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 No VTE prophylaxis required. Post-op diagnosis: Severe mid RCA and Ostial stenosis S/P Successful PCI. Medication's Wasted: Heparin = 2000 mg. Medication's Wasted: Nitro = 49.8 mg. Medication's Wasted: Lidocaine 1% = 10 mL. Total IV fluids: 117 mL. Complications: none. Estimated blood loss: 5mL-10mL. Responsiveness - Normal response to verbal stimuli; alert and oriented, PERRLA. Airway - Unaffected, no intervention required; spontaneous ventilation. Circulation: W/N/L, pulses unchanged. Nausea/Vomiting: No. Procedure completed. Patient transferred by bed to ICU. PCI Indication : PCI for high risk Non-STEMI or unstable angina. Vital chart was stopped. Access Site Site: Right Radial artery Sheath Size: 6 Fr Hemostasis Method: TR Band Hemostasis Success: Successful Site: Right Femoral artery Sheath Size: 6 Fr Hemostasis Method: Suture Hemostasis Success: Successful Procedure Medications Start: 5:46 PM Stop: 5:46 PM Medication: Versed Amount: 1 mg Route: I.V. Start: 5:47 PM Stop: 5:47 PM Medication: Zofran (ondansetron) Amount: 4 mg Route: I.V. Start: 5:49 PM Stop: 5:49 PM Medication: Nitrogylcerin Amount: 200 mcg Route: I.A. Start: 5:59 PM Stop: 5:59 PM Medication: Fentanyl Amount: 25 mcg Route: I.V. Start: 6:05 PM Stop: 6:05 PM Medication: Versed Amount: 0.5 mg Route: I.V. Start: 6:16 PM Stop: 6:16 PM Medication: Heparin Amount: 3000 units Route: I.V. Start: 6:21 PM Stop: 6:21 PM Medication: Versed Amount: 0.5 mg Route: I.V. Start: 6:35 PM Stop: 6:35 PM Medication: Heparin Amount: 2000 units Route: I.V. Start: 6:37 PM Stop: 6:37 PM Medication: Fentanyl Amount: 25 mcg Route: I.V. Start: 6:51 PM Stop: 6:51 PM Medication: Fentanyl Amount: 25 mcg Route: I.V. Start: 7:01 PM Stop: 7:01 PM Medication: Fentanyl Amount: 25 mcg Route: I.V. Start: 7:15 PM Stop: 7:15 PM Medication: Heparin Amount: 2000 units Route: I.V. I, the attending physician, have reviewed and verified all procedure medications. Yes, all medications given per verbal order Report Signatures Finalized by Wojciech Siddiqui MD on 07/31/2023 02:33 PM
[2023-07-28] MEDS: nitroglycerin 0.4 mg sublingual Tablet 0.400000000000000022 MG SUBLINGUAL (17:15)
[2023-07-28] MEDS: ticagrelor 90 mg Tablet 180 MG PO (17:16)
[2023-07-28] MEDS: heparin 5,000 unit/mL INJ 1 mL 4000 UNIT IVP (17:16)
[2023-07-28 17:19] LABS: Troponin(5th) Baseline 16 ng/L (0-10)
--- NOTE | 2023-07-28 19:44 | P.HP_ITS ---
Providers/Chief Complaint 2 Admitting Physician: Wojciech Siddiqui M.D Primary Care Provider: Regulo Kelley DO Chief Complaint: n/v History of Present Illness Ayah Sanchez is a 77 year old female with past medical history of hypertension, PE on Eliquis who presented to hospital with nausea and vomiting since last night. In the ER she started having severe left arm pain. Initial troponin is negative however EKG is showing ST elevation in aVR and diffuse ST depressions. EKG is significantly changed from previous. When I saw patient, patient was grabbing her chest and said has been having severe chest pain which had just started. Review of Systems 2 Const: Denies: fever(s), chills, body aches or change in appetite ENMT: Denies: throat pain or dental pain Card: Denies: chest pain Resp: Denies: dyspnea GI: Reports: nausea and vomiting; Denies: abdominal pain or diarrhea : Denies: dysuria Musc: Denies: neck pain or back pain Skin/Breast: Denies: rash Neuro: Denies: headache(s) Medications/Allergies Home Medications Medication Instructions Recorded Confirmed Last Taken Type atorvastatin 80 mg tablet 80 mg PO DAILY #90 tabs 12/20/21 06/27/23 11/28/22 Rx Ventolin HFA 90 mcg/actuation 2 puff inhalation Q4H PRN 01/16/23 06/27/23 Unknown Rx aerosol inhaler (albuterol sulfate) shortness of breath or wheezing #18 grams nitroglycerin 0.4 mg sublingual See Rx Instructions .Route 02/09/23 06/27/23 Unknown Rx tablet .COMPLEX #25 tabs umeclidinium 62.5 mcg/actuation 1 inh inhalation DAILY #30 ea 04/10/23 06/27/23 Unknown Rx blister powder for inhalation (Incruse Ellipta) apixaban 2.5 mg tablet 2.5 mg PO BID #60 tabs 04/11/23 06/27/23 Unknown Rx cetirizine 10 mg tablet (Zyrtec) 10 mg PO DAILY PRN allergy 04/27/23 06/27/23 Unknown Rx symptoms #30 tabs fluticasone propionate 50 1 spray intranasal BID #16 grams 04/27/23 06/27/23 Unknown Rx mcg/actuation nasal spray,suspension (Flonase Allergy Relief) celecoxib 50 mg capsule (Celebrex) 50 mg PO BID #60 caps 04/28/23 06/27/23 Unknown Rx pantoprazole 40 mg tablet,delayed See Rx Instructions .Route 05/30/23 06/27/23 Unknown Rx release .COMPLEX #180 tabs furosemide 40 mg tablet See Rx Instructions .Route 06/07/23 06/27/23 Unknown Rx .COMPLEX #90 tabs potassium chloride 10 mEq See Rx Instructions .Route 06/23/23 06/27/23 Unknown Rx capsule,extended release .COMPLEX #90 caps amlodipine 5 mg tablet 5 mg PO DAILY PRN hypertension #30 06/27/23 06/27/23 Unknown Rx tabs Allergies Allergy/AdvReac Type Severity Reaction Status Date / Time adhesive tape Allergy Mild ALGY-Rash Verified 07/28/23 15:35 aspirin Allergy Unknown unknown Verified 07/28/23 15:35 Sulfa (Sulfonamide Allergy Unknown unknown Verified 07/28/23 15:35 Antibiotics) PFSH Acute 2 PFSH: Medical History Anemia Chest pain AVM (arteriovenous malformation) HTN (hypertension) Dark stools Pulmonary embolism COPD (chronic obstructive pulmonary disease) Hiatal hernia Diverticulosis Colon polyps Presence of intrathecal pump Bilateral carotid artery stenosis Hyperlipidemia associated with type 2 diabetes mellitus Ventricular hypertrophy Surgical History H/O: hysterectomy H/O cataract extraction Hx of appendectomy Family History Mother CAD (coronary artery disease), Onset Age: 70 Cancer Dementia Sister Diabetes Denies family history of Clotting disorder Chronic kidney disease (CKD) Suicide Anesthesia complication Bleeding disorder Lung disease Stroke Social History Smoking and tobacco/nicotine status: former use of tobacco/nicotine Quit status (tobacco/nicotine): has quit using Year quit tobacco: 2022 Former quit date comment: 1.5 ppd X 50 Alcohol intake: never Substance/Drug Use: never Female Reproductive History: Spontaneous abortions: No Vitals/I&O/Wt Last Vital Signs Temp 98.0 F 07/28/23 18:08 Pulse 75 07/28/23 18:08 Resp 18 07/28/23 18:08 BP 150/65 07/28/23 18:08 Pulse Ox 97 07/28/23 18:08 O2 Del Method Nasal Cannula 07/28/23 17:00 O2 Flow Rate 2 07/28/23 17:00 Weight last 48 hrs Weight 172 lb Physical Exam 2 Narrative: GENERAL: Patient is alert, awake and oriented x3. [] NECK: No jugular vein distension. [] HEENT: No cyanosis. No icterus. No pallor. [] HEART: Regular S1 and S2. No murmur, rub or gallop. [] LUNGS: Clear to auscultate bilaterally. [] CENTRAL NERVOUS SYSTEM: Grossly nonfocal. [] EXTREMITIES: Lower extremities with 1+ edema bilaterally Data 07/28/23 15:13 07/28/23 15:13 A&P Assessment and plan (1) Unstable angina: (2) Hyperlipidemia associated with type 2 diabetes mellitus: (3) HTN (hypertension): Qualifiers: Hypertension type: primary hypertension Qualified Code(s): I10 - Essential (primary) hypertension (4) CHF (congestive heart failure): Qualifiers: Heart failure type: combined systolic and diastolic Heart failure chronicity: chronic Qualified Code(s): I50.42 - Chronic combined systolic (congestive) and diastolic (congestive) heart failure Plan Patient's presentation is consistent with unstable angina. We will emergently take patient to cardiac Board Handler as she is having active severe chest pain. EKG has significant ST depressions and aVR ST elevation. Patient says she is allergic to aspirin. Has been given Brilinta. She is on Eliquis. If needs intervention, we will switch Brilinta to Plavix tomorrow and continue Eliquis. We will obtain echocardiogram. We will consult medicine team for management of medical issues. Attestations 2 Medical Necessity Statement*: Care expected to cross 2 midnights. Patient has presented with nausea/vomitting and having left arm and chest pain in the ER. Going for emergent cardiac catheterization. Further recommendations based on findings. Coding Level of Care Code Acute Code for Chg Fwd Diagnoses Unstable angina I20.0 Hyperlipidemia associated with type 2 diabetes mellitus E11.69; E78.5 Primary hypertension I10 Hypertension type: primary hypertension Chronic combined systolic and diastolic congestive heart failure I50.42 Heart failure type: combined systolic and diastolic Heart failure chronicity: chronic
--- NOTE | 2023-07-28 20:00 | P.CONIM_ITS ---
Providers/Reason For Consult 2 Consulting Physician/Specialty*: IM, Orin carbone MD Reason for Consult*: Medical management Attending Physician: Wojciech Siddiqui M.D Primary Care Provider: Regulo Kelley DO History of Present Illness History of Present Illness Ayah Sanchez is a 77 year old female With past medical history of anemia, hypertension, diabetes mellitus, pulmonary embolism, COPD, diverticulosis, bilateral carotid artery stenosis, hyperlipidemia presented to the hospital today with complaint of nausea and vomiting since yesterday. She has been dry heaving. Has not had any severe abdominal pain but does have some cramping. Denies diarrhea, fever. Did receive Zofran in the ER with some improvement. She was reassessed in ER during the visit and had presented with left severe arm. EKG at that time showed significant ST depressions in other leads. Brilinta and heparin was given and patient was sent to [facility] emergently. Patient did receive 2 stents to RCA. Patient will be sent to ICU in stable condition from the [facility]. Medicine has been consulted for comanagement of medical issues. Seen in ICU at this time. Appears to be comfortable. On 2 L nasal cannula. Blood pressure 150/65, pulse 75 respiratory 18, saturating 97%. Afebrile. Does complain of some dysuria. Nausea has improved at this point. Offers no other complaints. Medications/Allergies Home Medications Medication Instructions Recorded Confirmed Last Taken Type atorvastatin 80 mg tablet 80 mg PO DAILY #90 tabs 12/20/21 06/27/23 11/28/22 Rx Ventolin HFA 90 mcg/actuation 2 puff inhalation Q4H PRN 01/16/23 06/27/23 Unknown Rx aerosol inhaler (albuterol sulfate) shortness of breath or wheezing #18 grams nitroglycerin 0.4 mg sublingual See Rx Instructions .Route 02/09/23 06/27/23 Unknown Rx tablet .COMPLEX #25 tabs umeclidinium 62.5 mcg/actuation 1 inh inhalation DAILY #30 ea 04/10/23 06/27/23 Unknown Rx blister powder for inhalation (Incruse Ellipta) apixaban 2.5 mg tablet 2.5 mg PO BID #60 tabs 04/11/23 06/27/23 Unknown Rx cetirizine 10 mg tablet (Zyrtec) 10 mg PO DAILY PRN allergy 04/27/23 06/27/23 Unknown Rx symptoms #30 tabs fluticasone propionate 50 1 spray intranasal BID #16 grams 04/27/23 06/27/23 Unknown Rx mcg/actuation nasal spray,suspension (Flonase Allergy Relief) celecoxib 50 mg capsule (Celebrex) 50 mg PO BID #60 caps 04/28/23 06/27/23 Unknown Rx pantoprazole 40 mg tablet,delayed See Rx Instructions .Route 05/30/23 06/27/23 Unknown Rx release .COMPLEX #180 tabs furosemide 40 mg tablet See Rx Instructions .Route 06/07/23 06/27/23 Unknown Rx .COMPLEX #90 tabs potassium chloride 10 mEq See Rx Instructions .Route 06/23/23 06/27/23 Unknown Rx capsule,extended release .COMPLEX #90 caps amlodipine 5 mg tablet 5 mg PO DAILY PRN hypertension #30 06/27/23 06/27/23 Unknown Rx tabs Allergies Allergy/AdvReac Type Severity Reaction Status Date / Time adhesive tape Allergy Mild ALGY-Rash Verified 07/28/23 15:35 aspirin Allergy Unknown unknown Verified 07/28/23 15:35 Sulfa (Sulfonamide Allergy Unknown unknown Verified 07/28/23 15:35 Antibiotics) PFSH Acute 2 PFSH: Medical History Anemia Chest pain AVM (arteriovenous malformation) HTN (hypertension) Dark stools Pulmonary embolism COPD (chronic obstructive pulmonary disease) Hiatal hernia Diverticulosis Colon polyps Presence of intrathecal pump Bilateral carotid artery stenosis Hyperlipidemia associated with type 2 diabetes mellitus Ventricular hypertrophy Surgical History H/O: hysterectomy H/O cataract extraction Hx of appendectomy Family History Mother CAD (coronary artery disease), Onset Age: 70 Cancer Dementia Sister Diabetes Denies family history of Clotting disorder Chronic kidney disease (CKD) Suicide Anesthesia complication Bleeding disorder Lung disease Stroke Social History Smoking and tobacco/nicotine status: former use of tobacco/nicotine Quit status (tobacco/nicotine): has quit using Year quit tobacco: 2022 Former quit date comment: 1.5 ppd X 50 Alcohol intake: never Substance/Drug Use: never Female Reproductive History: Spontaneous abortions: No Vitals/I&O/Wt Last Vital Signs Temp 98.0 F 07/28/23 18:08 Pulse 75 07/28/23 18:08 Resp 18 07/28/23 18:08 BP 150/65 07/28/23 18:08 Pulse Ox 97 07/28/23 18:08 O2 Del Method Nasal Cannula 07/28/23 17:00 O2 Flow Rate 2 07/28/23 17:00 Weight last 48 hrs Weight 78.018 kg Physical Exam 2 Narrative: GENERAL: Patient is alert, awake and oriented x3. [] NECK: No jugular vein distension. [] HEENT: No cyanosis. No icterus. No pallor. [] HEART: Regular S1 and S2. No murmur, rub or gallop. [] LUNGS: Clear to auscultate bilaterally. [] CENTRAL NERVOUS SYSTEM: Grossly nonfocal. [] EXTREMITIES: Lower extremities with 1+ edema bilaterally Data 07/28/23 15:13 07/28/23 15:13 A&P Assessment and plan (1) HTN (hypertension): Qualifiers: Hypertension type: primary hypertension Qualified Code(s): I10 - Essential (primary) hypertension (2) CHF (congestive heart failure): Qualifiers: Heart failure chronicity: chronic Heart failure type: combined systolic and diastolic Qualified Code(s): I50.42 - Chronic combined systolic (congestive) and diastolic (congestive) heart failure (3) Chest pain: (4) Unstable angina: (5) Bilateral carotid artery stenosis: (6) Mixed dyslipidemia: (7) Hyperlipidemia associated with type 2 diabetes mellitus: (8) History of pulmonary embolism: (9) GERD without esophagitis: (10) Normocytic anemia: (11) COPD (chronic obstructive pulmonary disease): Qualifiers: COPD type: emphysema Emphysema type: centrilobular Qualified Code(s): J43.2 - Centrilobular emphysema Plan #Unstable angina, subsequent STEMI #CAD status post RUT to RCA #Diabetes mellitus x 2 #Hypertension #Combined systolic diastolic congestive heart failure #Hyperlipidemia #Dysuria?rule out UTI #COPD # History of PE #Chronic anemia ? Continue aspirin, Brilinta, atorvastatin daily ? Continue amlodipine ? Check hemoglobin A1c ? Low dose intensity Sliding scale insulin ? Patient on Eliquis at home. On hold at this time - Check UA, urine culture, cover with ceftriaxone 1 g daily. Will tx for 3 days total - PT/OT - Continue NS 100 cc/hr - stop fluids in AM - duoneb q6h prn - list home meds and call MD. Full Code DVT PPX: heparin subcu BID Consult Attestations 2 Medical Necessity Statement: > 2 midnight stay for mgmt of STEMI. Diagnoses Primary hypertension I10 Hypertension type: primary hypertension Chronic combined systolic and diastolic congestive heart failure I50.42 Heart failure chronicity: chronic Heart failure type: combined systolic and diastolic Chest pain R07.9 Unstable angina I20.0 Bilateral carotid artery stenosis I65.23 Mixed dyslipidemia E78.2 Hyperlipidemia associated with type 2 diabetes mellitus E11.69; E78.5 History of pulmonary embolism Z86.711 GERD without esophagitis K21.9 Normocytic anemia D64.9 Centrilobular emphysema J43.2 COPD type: emphysema Emphysema type: centrilobular
[2023-07-28] MEDS: sodium chloride 0.9% 1,000 ML 100 ML IV (20:26)
--- NOTE | 2023-07-28 20:27 | ECG_ITS ---
[facility] Test Date: 2023-07-28 Pat Name: Ayah Sanchez Department: Room: Gender: Female Director Facilities Maintenance: : 1945 Requested By: Vignesh Ferris Order Number: [id number] Landon MD: Wojciech Siddiqui M.D. Measurements Intervals [place] Rate: 99 P: 66 ID: [id number] QRS: 59 QRSD: 110 T: 95 QT: 373 QTc: 480 Interpretive Statements SINUS RHYTHM WITH OCCASIONAL SUPRAVENTRICULAR PREMATURE COMPLEXES LEFT VENTRICULAR HYPERTROPHY AND ST-T CHANGE [VOLTAGE CRITERIA PLUS ST/T ABNORMALITY] Compared to ECG 07/28/2023 17:27:34 No significant changes Electronically Signed On 07-28-2023 20:29:35 CDT by Wojciech Siddiqui M.D. [id number]
[2023-07-28 21:36] LABS: Troponin 5 2HR 41.42 ng/L (0-10)
[2023-07-28 21:39] LABS: Troponin 5 2HR Delta 25.42 ABS# (0-10)
[2023-07-28 21:43] LABS: Bilirubin Urine Neg (Negative); Blood Urine 2+ (Negative); Glucose Urine UA Norm (Normal); Ketones Urine Negative (Negative); Nitrate Urine Negative (Negative); Protein Urine Neg (Negative); Specific Gravity, Urine 1.005 (1.005-1.030); Urine Appearance Clear (CLEAR); Urine Color Yellow (Yellow); pH Urine 8 (5-7)
[2023-07-28 21:44] LABS: Leukocyte Esterase Urine Negative (Negative); Squamous Epithelial Cell Urine 0-4 /hpf (0-5); Sulfosalicylic Acid Urine Negative (Negative); Urobilinogen Urine Neg (Negative); WBC Urine 0-4 /hpf (0-5)
[2023-07-28] MEDS: acetaminophen 325 mg Tablet 650 MG PO (21:55)
[2023-07-28] MEDS: cefTRIAXone 1,000 MG in sodium chloride 0.9% (plus) 50 ML 100 MG IV (21:55)
[2023-07-28] MEDS: metoprolol tartrate 50 mg Tablet PO (21:56)
--- NOTE | 2023-07-28 22:57 | ECG_ITS ---
[facility] Test Date: 2023-07-29 Pat Name: Ayah Sanchez Department: Room: ICU02 Gender: Female Materials Associate: : 1945 Requested By: Vignesh Ferris Order Number: [id number] Landon MD: Guicho Chavarria M.D. Measurements Intervals [place] Rate: 59 P: 63 ND: 163 QRS: 62 QRSD: 106 T: 83 QT: 425 QTc: 424 Interpretive Statements SINUS BRADYCARDIA POSSIBLE LEFT VENTRICULAR HYPERTROPHY [VOLTAGE CRITERIA PLUS LAE OR QRS WIDENING] NONSPECIFIC ST & T-WAVE ABNORMALITY Compared to ECG 07/28/2023 20:27:04 T-wave abnormality now present Sinus rhythm no longer present ST (T wave) deviation no longer present Electronically Signed On 07-29-2023 20:26:36 CDT by Guicho Chavarria M.D. [id number]
[2023-07-28] MEDS: amlodipine 5 mg Tablet PO (23:31)
[2023-07-28] MEDS: fentaNYL 50 mcg/mL INJ 2mL IVP (23:52)
[2023-07-29] VITALS (60 sets, daily range): BP systolic 130–174; BP diastolic 59–84; PULSE 54–94; RESP 10–32; TEMP 36.7; O2SAT 95–99
[2023-07-29 00:03] LABS: Troponin 5 6HR 107.6 ng/L (0-10); Troponin 5 6HR Delta 91.6 ng/L (0-12)
[2023-07-29] MEDS: temazepam 15 mg Capsule PO (00:39)
[2023-07-29] MEDS: fentaNYL 50 mcg/mL INJ 2mL IVP (03:53)
[2023-07-29] MEDS: ticagrelor 90 mg Tablet PO ×2 (05:09→09:15)
[2023-07-29] MEDS: sodium chloride 0.9% 1,000 ML 100 ML IV (05:10)
[2023-07-29 07:09] LABS: Basophils % 0.2 %; Eosinophils % 0.1 %; Lymphocytes # 1.2 10^3/uL (0.8-4.8); Lymphocytes % 6.8 %; Mean Corpuscular Hemoglobin 24.5 pg (27-33); Mean Corpuscular Volume 78.9 fl (85-98); Mean Platelet Volume 10.3 fL (7.4-10.4); Monocytes # 1.1 10^3/uL (0.2-0.9); Monocytes % 6.4 %; Neutrophils # 15.23 10^3/uL (1.8-7.7); Neutrophils % 85.9 %; Nucleated Red Blood Cells % 0 %; Platelet Count 502 10^3/cmm (157-399); Red Cell Distribution Width 14.7 % (12.1-15.1)
[2023-07-29 07:28] LABS: Alanine Aminotransferase 14 U/L (0-33); Albumin Level 4.1 g/dL (3.5-5.2); Alkaline Phosphatase 114 U/L (35-105); Aspartate Amino Transferase 39 U/L (0-32); Blood Urea Nitrogen 11 mg/dL (8-23); Calcium 9.7 mg/dL (8.5-10.5); Carbon Dioxide 22 mmol/L (22-29); Chloride 99 mmol/L (98-107); Glucose 156 mg/dL (65-115); Osmolality Calculated 281 mOsm/kg (285-295); Sodium 134 mmol/L (136-145); Total Bilirubin 0.6 mg/dL (0.15-1.2); Total Protein 7.1 g/dL (6.6-8.7)
[2023-07-29 07:31] LABS: Anion Gap 16.8 (5-19); Potassium 3.8 mmol/L (3.5-5.1)
--- NOTE | 2023-07-29 08:28 | P.PN_ITS ---
Subjective 2 Subjective: Patient had emergent revascularization of ostial and mid RCA with 2 stents yesterday. She is chest pain-free. Overall doing well. Has back pain which is chronic. Vitals/I&O/Wt Last Vital Signs Temp 98.1 F 07/29/23 02:00 Pulse 70 07/29/23 07:51 Resp 19 H 07/29/23 07:51 BP 160/69 07/29/23 07:51 Pulse Ox 97 07/29/23 07:51 O2 Del Method Nasal Cannula 07/29/23 07:51 O2 Flow Rate 2 07/29/23 07:51 07/28/23 07/29/23 07/29/23 22:59 06:59 14:59 Intake Total 650 / 650 1273.333 / 1923.333 Output Total 800 / 800 1650 / 2450 Balance -150 / -150 -376.667 / -526.667 Weight last 48 hrs Weight 172 lb 9.6 oz Weight 173 lb 4.8 oz Weight 172 lb Physical Exam 2 Narrative: GENERAL: Patient is alert, awake and oriented x3. [] NECK: No jugular vein distension. [] HEENT: No cyanosis. No icterus. No pallor. [] HEART: Regular S1 and S2. No murmur, rub or gallop. [] LUNGS: Clear to auscultate bilaterally. [] CENTRAL NERVOUS SYSTEM: Grossly nonfocal. [] EXTREMITIES: Lower extremities with 1+ edema bilaterally Data 07/29/23 06:51 07/29/23 06:51 A&P Assessment and plan (1) NSTEMI (non-ST elevated myocardial infarction): (2) Hyperlipidemia associated with type 2 diabetes mellitus: (3) HTN (hypertension): Qualifiers: Hypertension type: primary hypertension Qualified Code(s): I10 - Essential (primary) hypertension (4) CHF (congestive heart failure): Qualifiers: Heart failure type: combined systolic and diastolic Heart failure chronicity: chronic Qualified Code(s): I50.42 - Chronic combined systolic (congestive) and diastolic (congestive) heart failure Plan Patient coronary angiogram demonstrated severe ostial and mid RCA stenosis which underwent successful revascularization with 2 stents. Patient has allergy to aspirin. She was on Eliquis at home for history of pulmonary embolism. She was loaded with Brilinta. We will continue this morning. In the evening we will resume Eliquis and load with Plavix and switching from Brilinta (if no access site issues.. Bedside Mynx closure done for right femoral artery access given her bleeding tendency. Successful hemostasis achieved. Blood pressure control with amlodipine and metoprolol. High intensity statin therapy. ECHO is pending. WBC count increased. Medicine team on board for management of medical issues. Appreciate recs. Currently on Ceftriaxone. Attestations 2 Medical Necessity Statement*: Care expected to cross 2 midnights. Patient came with NSTEMI/Unstable angina and had emergent revascularization of ostial and mid RCA with 2 stents. Patient will stay in hospital for today and discharge home tomorrow. Coding Level of Care Code Acute Code for [facility] Diagnoses NSTEMI (non-ST elevated myocardial infarction) I21.4 Hyperlipidemia associated with type 2 diabetes mellitus E11.69; E78.5 Primary hypertension I10 Hypertension type: primary hypertension Chronic combined systolic and diastolic congestive heart failure I50.42 Heart failure type: combined systolic and diastolic Heart failure chronicity: chronic
--- NOTE | 2023-07-29 08:28 | XRR_ITS ---
PROCEDURE INFORMATION: Exam: XR Chest Exam date and time: 07/29/2023 8:32 AM Age: 77 years old Clinical indication: Dyspnea; Additional info: Post mi/ copd TECHNIQUE: Imaging protocol: Radiologic exam of the chest. Views: 1 view. COMPARISON: CR XR chest 1V portable [id number] 11/28/2022 4:08 PM FINDINGS: Lungs: Bilateral apical fibrotic changes. No focal consolidation. Pleural spaces: Unremarkable. No pleural effusion. No pneumothorax. Heart/Mediastinum: Mild cardiomegaly. Bones/joints: Mild degenerative disease of bilateral acromioclavicular joints. Mild curvature of the thoracic spine convex to the left. XR/XR chest 1V portable [id number] IMPRESSION: No acute cardiopulmonary process.
[2023-07-29] MEDS: amlodipine 10 mg Tablet PO (09:15)
[2023-07-29] MEDS: atorvastatin 40 mg Tablet 80 MG PO (09:15)
[2023-07-29] MEDS: HYDROcodone-acetaminophen 5-325 mg Tablet 1 TAB PO (09:15)
[2023-07-29] MEDS: metoprolol tartrate 50 mg Tablet PO ×2 (09:16→20:50)
[2023-07-29] MEDS: hyDRALAzine 20 mg/mL INJ 1 mL IVP (09:41)
[2023-07-29 10:01] LABS: Procalcitonin 0.08 ng/mL (0-0.5)
--- NOTE | 2023-07-29 12:33 | P.PN_ITS ---
Subjective 2 Subjective: Patient reports low back and lower leg pain. The bed and the fact that she is more mobile due to the cardiac access site is exacerbating her pain. Otherwise, she denies chest pain, shortness of breath, or other new complaints. Medications: Reviewed: Yes Vitals/I&O/Wt Last Vital Signs Temp 98.1 F 07/29/23 02:00 Pulse 78 07/29/23 11:00 Resp 16 07/29/23 11:00 BP 160/69 07/29/23 11:00 Pulse Ox 97 07/29/23 11:00 O2 Del Method Nasal Cannula 07/29/23 11:00 O2 Flow Rate 2 07/29/23 11:00 07/28/23 07/29/23 07/29/23 22:59 06:59 14:59 Intake Total 650 / 650 1273.333 / 1923.333 Output Total 800 / 800 1650 / 2450 Balance -150 / -150 -376.667 / -526.667 Weight last 48 hrs Weight 78.29 kg Weight 78.608 kg Weight 78.018 kg Physical Exam 2 Narrative: General: Patient is awake. Appears fatigued but pleasant. Head: Normocephalic. Atraumatic. EOM intact. Neck: No JVD. Cardiovascular: RRR. No gallops. No murmurs. No peripheral edema. Lungs: Clear to auscultation, no use of accessory muscles, no crackles or wheezes. Skin: No jaundice. No rashes. Abdomen: Normal bowel sounds, abdomen soft and nontender. Genito Urinary: Genital exam not performed since complaints not related. Rectal: Rectal exam not performed since no symptoms indicated blood loss. Extremities: No cyanosis or clubbing. Musculoskeletal: No swollen or erythematous joints. Neurological: Moves all 4 extremities. No myoclonus. Data 07/29/23 06:51 07/29/23 06:51 A&P Assessment and plan (1) NSTEMI (non-ST elevated myocardial infarction): Status postcardiac catheterization with stents to RCA and ostial Cardiology primary, appreciate management On dual antiplatelet therapy with Brilinta and aspirin Continue beta-joaquin Continue high intensity statin Avoid NSAIDs Planning on sheath removal per cardiology today (2) Leukocytosis: No obvious source of infection, suspect stress-induced UA and chest x-ray unremarkable Check procalcitonin and if normal discontinue antibiotics (3) CHF (congestive heart failure): Echo pending Strict I's and O's Home Lasix on hold She is on IV fluids, at risk for exacerbating CHF Daily assessments of volume Qualifiers: Heart failure type: combined systolic and diastolic Heart failure chronicity: chronic Qualified Code(s): I50.42 - Chronic combined systolic (congestive) and diastolic (congestive) heart failure (4) HTN (hypertension): Continue Norvasc Continue metoprolol Qualifiers: Hypertension type: primary hypertension Qualified Code(s): I10 - Essential (primary) hypertension (5) Bilateral carotid artery stenosis: Continue antiplatelet and statin therapies (6) Mixed dyslipidemia: Continue antiplatelet and statin therapies (7) History of pulmonary embolism: (8) GERD without esophagitis: Continue PPI (9) Normocytic anemia: Monitor (10) COPD (chronic obstructive pulmonary disease): Breathing treatments as needed Qualifiers: COPD type: emphysema Emphysema type: centrilobular Qualified Code(s): J43.2 - Centrilobular emphysema Attestations 2 Medical Necessity Statement*: Patient requires ongoing hospitalization for post-cath care. Coding Level of Care Code Acute Code for g Fwd Diagnoses NSTEMI (non-ST elevated myocardial infarction) I21.4 Leukocytosis D72.829 Chronic combined systolic and diastolic congestive heart failure I50.42 Heart failure type: combined systolic and diastolic Heart failure chronicity: chronic Primary hypertension I10 Hypertension type: primary hypertension Bilateral carotid artery stenosis I65.23 Mixed dyslipidemia E78.2 History of pulmonary embolism Z86.711 GERD without esophagitis K21.9 Normocytic anemia D64.9 Centrilobular emphysema J43.2 COPD type: emphysema Emphysema type: centrilobular
[2023-07-29] MEDS: sennosides-docusate Tablet 2 TAB PO (17:48)
[2023-07-29] MEDS: pantoprazole DR 40 mg Tablet PO (17:48)
[2023-07-29] MEDS: clopidogrel 300 mg Tablet 600 MG PO (17:48)
[2023-07-29 19:56] LABS: Glucose Point of Care 193 mg/dL (70-110)
--- NOTE | 2023-07-29 19:57 | USCV_ITS ---
Ayah Sanchez Age: 77 Gender: F : 1945 Exam Date: 07/29/2023 14:19 Ordering Phys: Wojciech Siddiqui M.D ([email or web address]) Technologist: Lucas Maldonado Exam Location: [facility] [place] Indication: unstable angina BP: 160 / 69 HR: 81 Rhythm: Sinus Technical Quality: Adequate MEASUREMENTS (Male / Female) Normal Values 2D ECHO LV Diastolic Diameter PLAX 3.5 cm 4.2 - 5.9 / 3.9 - 5.3 cm IVS Diastolic Thickness 1.7 cm 0.6 - 1.0 / 0.6 - 0.9 cm IVS Systolic Thickness 2.4 cm LVPW Diastolic Thickness 1.9 cm 0.6 - 1.0 / 0.6 - 0.9 cm LVPW Systolic Thickness 2.1 cm LV Ejection Fraction 2D Teich 60.7 % LA Diameter 4.2 cm RA Systolic Volume 4C AL 47.9 ml RA Systolic Volume 4C MOD 47.3 ml LA Sys Volume AL 63.6 cm cubed LA Sys Volume Index AL 33.7 cm cubed/m squared Aorta at Sinotubular Diameter 2.4 cm IVC Diameter 1.8 cm M-MODE LA Ao Ratio MM 1.3 MV E Point Septal Separation 0.7 cm AV Cusp Separation MM 1.8 cm DOPPLER AV Peak Velocity 163.8 cm/s LVOT Peak Velocity 123.0 cm/s MV Peak Velocity 97.0 cm/s MV Area PHT 11.9 cm squared Mitral E to A Ratio 2.0 TV Peak Velocity 165.3 cm/s TR Peak Velocity 248.0 cm/s TR Peak Gradient 24.6 mmHg TR Mean Velocity 194.0 cm/s TR Mean Gradient 16.7 mmHg TR Velocity Time Integral 69.8 cm PV Peak Velocity 118.0 cm/s RV Ejection Time 0.2 s FINDINGS Left Ventricle Left ventricular normal size. LV systolic function is normal with EF of 60 to 65%. No regional wall motion abnormalities are seen. Right Ventricle Normal in size and function Right Atrium Normal in size Left Atrium Dilated Mitral Valve Moderate mitral annular calcification. Mild mitral regurgitation Aortic Valve Aortic valve is thickened. No significant stenosis or regurgitation. Tricuspid Valve Insufficient TR jet to calculate RVSP Pulmonic Valve Mild pulmonic regurgitation. Pericardium Trace pericardial effusion. Aorta Normal in size IVC Appears to be normal CONCLUSIONS LV systolic function is normal with EF of 60 to 65%. Left atrial dilation Mild mitral regurgitation Mild pulmonic regurgitation Trace pericardial effusion Compared to prior echocardiogram from 03/2023, patient has trace pericardial effusion. Wojciech Siddiqui MD (Electronically Signed) Final Date: 29 Jul 2023 21:23 S
[2023-07-29] MEDS: apixaban 5 mg Tablet 2.5 MG PO (20:50)
[2023-07-30] VITALS (67 sets, daily range): BP systolic 106–175; BP diastolic 54–100; PULSE 50–108; RESP 12–28; TEMP 36.4–36.9; O2SAT 94–99; BMI 29.9
[2023-07-30] MEDS: amlodipine 5 mg Tablet PO (00:27)
[2023-07-30 05:41] LABS: Basophils % 0.2 %; Eosinophils # 0.1 10^3/uL (0.0-0.8); Eosinophils % 0.3 %; Hematocrit 31.5 % (36-47); Lymphocytes # 1.4 10^3/uL (0.8-4.8); Lymphocytes % 8.1 %; Mean Corpuscular HGB Conc 29.5 g/dL (30-55); Mean Corpuscular Hemoglobin 24.2 pg (27-33); Mean Corpuscular Volume 81.8 fl (85-98); Mean Platelet Volume 10.6 fL (7.4-10.4); Monocytes # 1.3 10^3/uL (0.2-0.9); Neutrophils # 13.86 10^3/uL (1.8-7.7); Neutrophils % 82.8 %; Nucleated Red Blood Cells % 0 %; Platelet Count 439 10^3/cmm (157-399); Red Blood Count 3.85 10^6/uL (3.85-5.65); Red Cell Distribution Width 14.9 % (12.1-15.1); White Blood Count 16.74 10^3/uL (3.29-11.43)
[2023-07-30 06:05] LABS: Blood Urea Nitrogen 17 mg/dL (8-23); Calcium 9.3 mg/dL (8.5-10.5); Carbon Dioxide 21 mmol/L (22-29); Chloride 99 mmol/L (98-107); Creatinine Clr Calc Pharmacy 41.0846; Glucose 143 mg/dL (65-115); Osmolality Calculated 280 mOsm/kg (285-295); Sodium 133 mmol/L (136-145)
[2023-07-30 06:06] LABS: Anion Gap 16.9 (5-19); Potassium 3.9 mmol/L (3.5-5.1)
[2023-07-30] MEDS: amlodipine 10 mg Tablet PO (09:05)
[2023-07-30] MEDS: clopidogrel 75 mg Tablet PO (09:05)
[2023-07-30] MEDS: atorvastatin 40 mg Tablet 80 MG PO (09:05)
[2023-07-30] MEDS: pantoprazole DR 40 mg Tablet PO ×2 (09:05→18:08)
[2023-07-30] MEDS: sennosides-docusate Tablet 2 TAB PO ×2 (09:05→18:08)
[2023-07-30] MEDS: apixaban 5 mg Tablet 2.5 MG PO ×2 (09:06→20:32)
[2023-07-30] MEDS: metoprolol tartrate 50 mg Tablet PO ×2 (09:06→20:34)
[2023-07-30] MEDS: ondansetron 2 mg/ML SDV 2 mL 4 MG IVP ×3 (09:07→22:37)
--- NOTE | 2023-07-30 10:04 | PM.PN ---
Subjective Subjective: Patient reports she did not sleep well. She states she is hungry, has not eaten much since Monday. Her goal is to try to get home later today if possible. Denies other new complaints. Medications: Reviewed: Yes Vitals/I&O/Wt Last Vital Signs Temp 97.6 F 07/30/23 07:15 Pulse 81 07/30/23 08:45 Resp 26 H 07/30/23 08:45 BP 160/80 07/30/23 08:45 Pulse Ox 98 07/30/23 08:45 O2 Del Method Nasal Cannula 07/30/23 08:39 O2 Flow Rate 2 07/30/23 08:39 07/29/23 07/30/23 07/30/23 22:59 06:59 14:59 Intake Total 1280 / 1760 180 / 1940 Output Total 800 / 800 675 / 1475 Balance 480 / 960 -495 / 465 Weight last 48 hrs Weight 76.748 kg Weight 78.29 kg Weight 78.608 kg Weight 78.018 kg Physical Exam Narrative: General: Patient is awake. Head: Normocephalic. Atraumatic. EOM intact. Neck: No JVD. Cardiovascular: RRR. No gallops. No murmurs. Lungs: Clear to auscultation, no use of accessory muscles, no crackles or wheezes. Skin: No jaundice. No rashes. Abdomen: Normal bowel sounds, abdomen soft and nontender. Extremities: No cyanosis or clubbing. Musculoskeletal: No swollen or erythematous joints. Neurological: Moves all 4 extremities. No myoclonus. Data 07/30/23 05:29 07/30/23 05:29 Micro: Microbiology 07/28/23 21:00 Urine Culture - Final Urine Catheterized A&P Assessment and plan (1) NSTEMI (non-ST elevated myocardial infarction): Status postcardiac catheterization with stents to RCA and ostial arteries Cardiology primary, appreciate management On antiplatelet therapy with Plavix and anticoagulant with apixaban Continue beta-joaquin Continue high intensity statin Avoid NSAIDs, avoid discontinue celecoxib at discharge (2) Leukocytosis: No obvious source of infection, suspect stress-induced UA and chest x-ray unremarkable Procalcitonin unremarkable (3) CHF (congestive heart failure): Echo reviewed, preserved EF noted Strict I's and O's Home Lasix on hold She is on IV fluids, at risk for exacerbating CHF Daily assessments of volume Qualifiers: Heart failure type: combined systolic and diastolic Heart failure chronicity: chronic Qualified Code(s): I50.42 - Chronic combined systolic (congestive) and diastolic (congestive) heart failure (4) HTN (hypertension): Continue Norvasc Continue losartan Continue metoprolol Qualifiers: Hypertension type: primary hypertension Qualified Code(s): I10 - Essential (primary) hypertension (5) Bilateral carotid artery stenosis: Continue antiplatelet and statin therapies (6) Mixed dyslipidemia: Continue antiplatelet and statin therapies (7) History of pulmonary embolism: Patient has been restarted on apixaban (8) GERD without esophagitis: Continue PPI (9) Normocytic anemia: Monitor (10) COPD (chronic obstructive pulmonary disease): Breathing treatments as needed Qualifiers: COPD type: emphysema Emphysema type: centrilobular Qualified Code(s): J43.2 - Centrilobular emphysema Attestations Medical Necessity Statement*: Per primary Coding Level of Care Code Acute Code for [facility] Fwd Diagnoses NSTEMI (non-ST elevated myocardial infarction) I21.4 Leukocytosis D72.829 Chronic combined systolic and diastolic congestive heart failure I50.42 Heart failure type: combined systolic and diastolic Heart failure chronicity: chronic Primary hypertension I10 Hypertension type: primary hypertension Bilateral carotid artery stenosis I65.23 Mixed dyslipidemia E78.2 History of pulmonary embolism Z86.711 GERD without esophagitis K21.9 Normocytic anemia D64.9 Centrilobular emphysema J43.2 COPD type: emphysema Emphysema type: centrilobular
--- NOTE | 2023-07-30 10:23 | PM.PN ---
Subjective Subjective: Patient says cannot eat much secondary to nausea. No chest pain. Vitals/I&O/Wt Last Vital Signs Temp 97.6 F 07/30/23 07:15 Pulse 65 07/30/23 10:15 Resp 16 07/30/23 10:15 BP 143/77 07/30/23 10:15 Pulse Ox 99 07/30/23 10:15 O2 Del Method Nasal Cannula 07/30/23 08:39 O2 Flow Rate 2 07/30/23 08:39 07/29/23 07/30/23 07/30/23 22:59 06:59 14:59 Intake Total 1280 / 1760 180 / 1940 Output Total 800 / 800 675 / 1475 Balance 480 / 960 -495 / 465 Weight last 48 hrs Weight 169 lb 3.2 oz Weight 172 lb 9.6 oz Weight 173 lb 4.8 oz Weight 172 lb Physical Exam Narrative: GENERAL: Patient is alert, awake and oriented x3. [] NECK: No jugular vein distension. [] HEENT: No cyanosis. No icterus. No pallor. [] HEART: Regular S1 and S2. No murmur, rub or gallop. [] LUNGS: Clear to auscultate bilaterally. [] CENTRAL NERVOUS SYSTEM: Grossly nonfocal. [] EXTREMITIES: Lower extremities with 1+ edema bilaterally Data 07/31/23 02:26 07/31/23 02:26 Micro: Microbiology 07/28/23 21:00 Urine Culture - Final Urine Catheterized A&P Assessment and plan (1) NSTEMI (non-ST elevated myocardial infarction): (2) Hyperlipidemia associated with type 2 diabetes mellitus: (3) HTN (hypertension): Qualifiers: Hypertension type: primary hypertension Qualified Code(s): I10 - Essential (primary) hypertension (4) CHF (congestive heart failure): Qualifiers: Heart failure type: combined systolic and diastolic Heart failure chronicity: chronic Qualified Code(s): I50.42 - Chronic combined systolic (congestive) and diastolic (congestive) heart failure Plan Patient overall doing well. She had PCI of ostial and mid RCA with 2 stents. Continue Eliquis and Plavix. Says cannot eat much because of nausea. Has been started on Protonix. Medicine team on board. Appreciate recs. WBC count still elevated. Procalcitonin was not elevated. We will observe her in hospital today echo showed normal LV systolic function Attestations Medical Necessity Statement*: Care expected to cross 2 midnights. Coding Level of Care Code Acute Code for [facility] Diagnoses NSTEMI (non-ST elevated myocardial infarction) I21.4 Hyperlipidemia associated with type 2 diabetes mellitus E11.69; E78.5 Primary hypertension I10 Hypertension type: primary hypertension Chronic combined systolic and diastolic congestive heart failure I50.42 Heart failure type: combined systolic and diastolic Heart failure chronicity: chronic
[2023-07-30 10:56] LABS: C Reactive Protein 17.7 mg/L (0.0-4.9)
[2023-07-30] MEDS: losartan 50 mg Tablet PO (11:01)
[2023-07-30] MEDS: lidocaine 2% viscous 15 ML, aluminum-mag hydrox-simethicon 30 ML, sucralfate oral liq 1 GM PO (11:02)
[2023-07-30] MEDS: alum-mag-hydroxide-sime 30 mL UDC PO ×2 (12:19→18:14)
[2023-07-30] MEDS: temazepam 15 mg Capsule PO (22:45)
[2023-07-31] VITALS (8 sets, daily range): BP systolic 104–155; BP diastolic 66–80; PULSE 51–58; RESP 16–24; TEMP 36.4–36.8; O2SAT 94–100
[2023-07-31 04:06] LABS: Basophils % 0.3 %; Eosinophils # 0.2 10^3/uL (0.0-0.8); Eosinophils % 1.5 %; Hematocrit 31.4 % (36-47); Lymphocytes # 1.9 10^3/uL (0.8-4.8); Lymphocytes % 16.2 %; Mean Corpuscular HGB Conc 29.9 g/dL (30-55); Mean Corpuscular Hemoglobin 23.9 pg (27-33); Mean Corpuscular Volume 79.7 fl (85-98); Mean Platelet Volume 10.5 fL (7.4-10.4); Monocytes # 1.2 10^3/uL (0.2-0.9); Monocytes % 9.8 %; Neutrophils # 8.58 10^3/uL (1.8-7.7); Neutrophils % 71.7 %; Nucleated Red Blood Cells % 0 %; Platelet Count 405 10^3/cmm (157-399); Red Blood Count 3.94 10^6/uL (3.85-5.65); Red Cell Distribution Width 14.4 % (12.1-15.1); White Blood Count 11.98 10^3/uL (3.29-11.43)
[2023-07-31 04:23] LABS: Anion Gap 14.9 (5-19); Blood Urea Nitrogen 19 mg/dL (8-23); Calcium 8.9 mg/dL (8.5-10.5); Carbon Dioxide 25 mmol/L (22-29); Chloride 100 mmol/L (98-107); Creatinine Clr Calc Pharmacy 37.2907; Glucose 104 mg/dL (65-115); Osmolality Calculated 285 mOsm/kg (285-295); Potassium 3.9 mmol/L (3.5-5.1); Sodium 136 mmol/L (136-145)
[2023-07-31] MEDS: atorvastatin 40 mg Tablet 80 MG PO (08:39)
[2023-07-31] MEDS: losartan 50 mg Tablet PO (08:40)
[2023-07-31] MEDS: amlodipine 10 mg Tablet PO (08:40)
[2023-07-31] MEDS: sennosides-docusate Tablet 2 TAB PO (08:40)
[2023-07-31] MEDS: metoprolol tartrate 50 mg Tablet PO (08:40)
[2023-07-31] MEDS: apixaban 5 mg Tablet 2.5 MG PO (08:40)
[2023-07-31] MEDS: clopidogrel 75 mg Tablet PO (08:40)
[2023-07-31] MEDS: pantoprazole DR 40 mg Tablet PO (08:41)
[2023-07-31] MEDS: ondansetron 2 mg/ML SDV 2 mL 4 MG IVP (09:54)
--- NOTE | 2023-07-31 12:00 | PC.SOCIAL ---
IMM Update Pg. 2 of IMM updated and reviewed with patient who verbalized understanding. Copy provided.
--- NOTE | 2023-07-31 12:32 | P.PN_ITS ---
Subjective 2 Subjective: Patient reports she did not eat a lot of her breakfast. She says she has no problems with liquid intake but a lot of the solid food she does not feel like eating. She states that she had this problem previously after procedure and it took many months for her to get back to her normal eating habits. She is agreeable to speech therapy evaluation that took place earlier today. Her swallow function is intact without dysphagia their evaluation. She has some food aversion to some solid foods. Hopefully this improves with time. Patient is stable from medicine perspective to discharge home to continue her recovery. Medications: Reviewed: Yes Vitals/I&O/Wt Last Vital Signs Temp 97.8 F 07/31/23 11:14 Pulse 51 L 07/31/23 11:14 Resp 18 07/31/23 11:14 BP 104/68 07/31/23 11:14 Pulse Ox 97 07/31/23 11:14 O2 Del Method Nasal Cannula 07/31/23 11:14 O2 Flow Rate 2 07/31/23 07:41 07/30/23 07/31/23 07/31/23 22:59 06:59 14:59 Output Total 1200 / 1200 Balance -1200 / -1200 Weight last 48 hrs Weight 78.471 kg Weight 76.748 kg Physical Exam 2 Narrative: General: Patient is awake. Sitting on edge of bed. Conversational. Head: Normocephalic. Atraumatic. EOM intact. Neck: No JVD. Cardiovascular: RRR. No gallops. No murmurs. Lungs: Clear to auscultation, no use of accessory muscles, no crackles or wheezes. Skin: No jaundice. No rashes. Abdomen: Normal bowel sounds, abdomen soft and nontender. Extremities: No cyanosis or clubbing. Musculoskeletal: No swollen or erythematous joints. Neurological: Moves all 4 extremities. No myoclonus. Data 07/31/23 02:26 07/31/23 02:26 Micro: Microbiology 07/28/23 21:00 Urine Culture - Final Urine Catheterized A&P Assessment and plan (1) NSTEMI (non-ST elevated myocardial infarction): Status postcardiac catheterization with stents to RCA and ostial arteries Cardiology primary, appreciate management On antiplatelet therapy with Plavix and anticoagulant with apixaban Continue beta-joaquin Continue high intensity statin Dissipate nitroglycerin as needed at discharge Avoid NSAIDs, discontinue celecoxib at discharge (2) Leukocytosis: No source of infection identified Leukocytosis nearly resolved at 11.9 today (3) CHF (congestive heart failure): Daily assessments of volume Can restart home Lasix at discharge Qualifiers: Heart failure type: combined systolic and diastolic Heart failure chronicity: chronic Qualified Code(s): I50.42 - Chronic combined systolic (congestive) and diastolic (congestive) heart failure (4) HTN (hypertension): Continue Norvasc Continue losartan Continue metoprolol Qualifiers: Hypertension type: primary hypertension Qualified Code(s): I10 - Essential (primary) hypertension (5) Bilateral carotid artery stenosis: Continue antiplatelet and statin therapies (6) Mixed dyslipidemia: Continue antiplatelet and statin therapies (7) History of pulmonary embolism: Continue apixaban (8) GERD without esophagitis: Continue PPI (9) Normocytic anemia: Monitor (10) COPD (chronic obstructive pulmonary disease): Breathing treatments as needed Qualifiers: COPD type: emphysema Emphysema type: centrilobular Qualified Code(s): J43.2 - Centrilobular emphysema Attestations 2 Medical Necessity Statement*: Patient appears medically ready for discharge. She does have some weakness and hopefully continues to improve as she recovers at home. She is not interested in postacute care. Coding Level of Care Code Acute Code for [facility] Diagnoses NSTEMI (non-ST elevated myocardial infarction) I21.4 Leukocytosis D72.829 Chronic combined systolic and diastolic congestive heart failure I50.42 Heart failure type: combined systolic and diastolic Heart failure chronicity: chronic Primary hypertension I10 Hypertension type: primary hypertension Bilateral carotid artery stenosis I65.23 Mixed dyslipidemia E78.2 History of pulmonary embolism Z86.711 GERD without esophagitis K21.9 Normocytic anemia D64.9 Centrilobular emphysema J43.2 COPD type: emphysema Emphysema type: centrilobular
--- NOTE | 2023-07-31 12:35 | PM.DCS ---
Discharge Providers Date of Admission: 07/28/23 18:01 Date of Discharge: July 31, 2023 Attending Provider at Admission: Wojciech Siddiqui M.D Attending Provider at Discharge: Wojciech Siddiqui M.D Primary Care Provider: Regulo Kelley DO Diagnoses at Discharge Discharge Diagnosis (1) NSTEMI (non-ST elevated myocardial infarction): Status: Resolved (2) Hyperlipidemia associated with type 2 diabetes mellitus: Status: Acute (3) HTN (hypertension): Status: Acute Qualifiers: Hypertension type: primary hypertension Qualified Code(s): I10 - Essential (primary) hypertension (4) CHF (congestive heart failure): Status: Chronic Qualifiers: Heart failure chronicity: chronic Heart failure type: combined systolic and diastolic Qualified Code(s): I50.42 - Chronic combined systolic (congestive) and diastolic (congestive) heart failure Reason for Visit Reason for Visit: Nausea/vomitting Brief History: 77 year old female with past medical history of hypertension, PE on Eliquis who presented to hospital with nausea and vomiting since last night. In the ER she started having severe left arm pain. Initial troponin is negative however EKG is showing ST elevation in aVR and diffuse ST depressions. EKG is significantly changed from previous. When I saw patient, patient was grabbing her chest and said has been having severe chest pain which had just started. Hospital Course Hospital Course Coronary angiogram demonstrated severe ostial and mid RCA stenosis. She had successful revascularization with 2 stents. Patient straight chest pain-free during the hospitalization. She did have lack of appetite and nausea occasionally. Medicine team was consulted and continued following patient during hospital stay. Had leukocytosis without any source of infection. Patient was discharged home in a stable condition on eliquis and plavix. Physical Exam Narrative: GENERAL: Patient is alert, awake and oriented x3. [] NECK: No jugular vein distension. [] HEENT: No cyanosis. No icterus. No pallor. [] HEART: Regular S1 and S2. No murmur, rub or gallop. [] LUNGS: Clear to auscultate bilaterally. [] CENTRAL NERVOUS SYSTEM: Grossly nonfocal. [] EXTREMITIES: Lower extremities with 1+ edema bilaterally Discharge Data Studies Completed and Pending Completed Studies During Hospitalization Category Date Time Status XR chest 1V portable [id number] Routine Exams 07/29/23 08:28 Completed CV. echo complete* [id number] Routine Ultrasound 07/29/23 19:57 Completed Pending at discharge Category Date Time Status GE[employer] request for service Stat Exams 07/28/23 17:10 Taken Radiology Impressions Chest X-Ray 07/29/23 08:28 IMPRESSION: No acute cardiopulmonary process. Laboratory Results WBC 11.98 10^3/uL (3.29-11.43) H 07/31/23 02:26 RBC 3.94 10^6/uL (3.85-5.65) 07/31/23 02:26 Hgb 9.40 g/dL (11.27-16.99) L 07/31/23 02:26 Hct 31.4 % (36-47) L 07/31/23 02:26 MCV 79.7 fl (85-98) L 07/31/23 02:26 MCH 23.9 pg (27-33) L 07/31/23 02:26 MCHC 29.9 g/dL (30-55) L 07/31/23 02:26 RDW 14.4 % (12.1-15.1) 07/31/23 02:26 Plt Count 405 10^3/cmm (157-399) H 07/31/23 02:26 MPV 10.5 fL (7.4-10.4) H 07/31/23 02:26 Neut % (Auto) 71.7 % 07/31/23 02:26 Lymph % (Auto) 16.2 % 07/31/23 02:26 [place] % (Auto) 9.8 % 07/31/23 02:26 Eos % (Auto) 1.5 % 07/31/23 02:26 Baso % (Auto) 0.3 % 07/31/23 02:26 Neut # (Auto) 8.58 10^3/uL (1.8-7.7) H 07/31/23 02:26 Lymph # (Auto) 1.9 10^3/uL (0.8-4.8) 07/31/23 02:26 [place] # (Auto) 1.2 10^3/uL (0.2-0.9) H 07/31/23 02:26 Eos # (Auto) 0.2 10^3/uL (0.0-0.8) 07/31/23 02:26 Baso # (Auto) 0.0 10^3/uL (0.0-0.1) 07/31/23 02:26 Nucleated RBC % (auto) 0 % 07/31/23 02:26 Nucleated RBCs # 0.0 /100WBC 07/31/23 02:26 Sodium 136 mmol/L (136-145) 07/31/23 02:26 Potassium 3.9 mmol/L (3.5-5.1) 07/31/23 02:26 Chloride 100 mmol/L (98-107) 07/31/23 02:26 Carbon Dioxide 25 mmol/L (22-29) 07/31/23 02:26 Anion Gap 14.9 (5-19) 07/31/23 02:26 BUN 19 mg/dL (8-23) 07/31/23 02:26 Creatinine 1.2 mg/dL (0.5-0.9) H 07/31/23 02:26 GFR Calculation Not Reportable 07/31/23 02:26 Glucose 104 mg/dL (65-115) 07/31/23 02:26 POC Glucose 193 mg/dL (70-110) H 07/29/23 19:35 Calculated Osmolality 285 mOsm/kg (285-295) 07/31/23 02:26 Calcium 8.9 mg/dL (8.5-10.5) 07/31/23 02:26 Magnesium 2.0 mg/dL (1.7-2.3) 07/29/23 06:51 Total Bilirubin 0.6 mg/dL (0.15-1.2) 07/29/23 06:51 AST 39 U/L (0-32) H 07/29/23 06:51 ALT 14 U/L (0-33) 07/29/23 06:51 Alkaline Phosphatase 114 U/L (35-105) H 07/29/23 06:51 Troponin T Baseline 16 ng/L (0-10) H 07/28/23 15:13 Troponin T 120 Minute 41.42 ng/L (0-10) H 07/28/23 21:04 Delta Troponin T 25.42 ABS# (0-10) H* 07/28/23 21:04 Troponin T Hi Sens 6Hr 107.6 ng/L (0-10) H 07/28/23 23:10 Troponin T Hi Sens 6Hr Delta 91.6 ng/L (0-12) H* 07/28/23 23:10 C-Reactive Protein 17.7 mg/L (0.0-4.9) H 07/30/23 05:29 Total Protein 7.1 g/dL (6.6-8.7) 07/29/23 06:51 Albumin 4.1 g/dL (3.5-5.2) 07/29/23 06:51 Globulin 3.0 g/dL (1.3-4.6) 07/29/23 06:51 Lipase 30 U/L (13-60) 07/28/23 15:13 Procalcitonin 0.08 ng/mL (0-0.5) 07/29/23 06:51 Urine Color Yellow (Yellow) 07/28/23 21:00 Urine Appearance Clear (CLEAR) 07/28/23 21:00 Urine pH 8 (5-7) H 07/28/23 21:00 Ur Specific [place] 1.005 (1.005-1.030) 07/28/23 21:00 Urine Protein Neg (Negative) 07/28/23 21:00 Urine Glucose (UA) Norm (Normal) 07/28/23 21:00 Urine Ketones Negative (Negative) 07/28/23 21:00 Urine Blood 2+ (Negative) H 07/28/23 21:00 Urine Nitrate Negative (Negative) 07/28/23 21:00 Urine Bilirubin Neg (Negative) 07/28/23 21:00 Prot Sulfosalicylic Acd Negative (Negative) 07/28/23 21:00 Urine Urobilinogen Neg mg/dL (Negative) 07/28/23 21:00 Ur Leukocyte Esterase Negative (Negative) 07/28/23 21:00 Urine RBC 5-10 /hpf (0-2) H 07/28/23 21:00 Urine WBC 0-4 /hpf (0-5) H 07/28/23 21:00 Ur Squamous Epith Cells 0-4 /hpf (0-5) H 07/28/23 21:00 Amorphous Sediment Not Reportable 07/28/23 21:00 Urine Bacteria None /hpf (NONE) 07/28/23 21:00 Vitals Last Vital Signs Temp 97.8 F 07/31/23 11:14 Pulse 51 L 07/31/23 11:14 Resp 18 07/31/23 11:14 BP 104/68 07/31/23 11:14 Pulse Ox 97 07/31/23 11:14 O2 Del Method Nasal Cannula 07/31/23 11:14 O2 Flow Rate 2 07/31/23 07:41 Discharge Plan Discharge Patient Disposition: Home Condition: Stable Prescriptions: New losartan 50 mg Tablet 50 mg PO DAILY Qty: 60 3RF clopidogrel 75 mg Tablet 75 mg PO DAILY Qty: 90 3RF amlodipine 10 mg Tablet 10 mg PO DAILY Qty: 90 3RF metoprolol tartrate 25 mg tablet 25 mg PO BID Qty: 60 1RF Continued albuterol sulfate [Ventolin HFA] 90 mcg/actuation HFA aerosol inhaler 2 puff inhalation Q4H PRN (Reason: shortness of breath or wheezing) Qty: 18 5RF Incruse Ellipta 62.5 mcg/actuation blister with device 1 inh inhalation DAILY Qty: 30 6RF apixaban 2.5 mg tablet 2.5 mg PO BID Qty: 60 5RF fluticasone propionate [Flonase Allergy Relief] 50 mcg/actuation spray,suspension 1 spray intranasal BID Qty: 16 2RF Rx Instructions: administer into each nostril potassium chloride 10 mEq capsule, extended release 10 meq PO DAILY PRN (Reason: takes with lasix) Rx Instructions: takes when takes the lasix only pantoprazole 40 mg tablet,delayed release (DR/EC) 40 mg PO 2XD nitroglycerin 0.4 mg tablet, sublingual 0.4 mg sublingual Q5MIN PRN (Reason: chest pain ) Held furosemide 40 mg tablet 40 mg PO DAILY Hold Instructions: Resume on 08/03/23. Patient Comments: patient reports takes as needed Rx Instructions: Patient reports takes as needed Discontinued amlodipine 5 mg tablet 5 mg PO DAILY PRN (Reason: hypertension) Qty: 30 2RF Rx Instructions: take for blood pressures over 150 systolic (top number) celecoxib [Celebrex] 50 mg capsule 50 mg PO BID Qty: 60 1RF No Action cetirizine 10 mg tablet See Rx Instructions .ROUTE .COMPLEX Qty: 30 2RF Dose Instruction: TAKE 1 TABLET BY MOUTH EVERY DAY NEEDED FOR allergy symptoms Rx Instructions: TAKE 1 TABLET BY MOUTH EVERY DAY NEEDED FOR allergy symptoms atorvastatin 80 mg tablet 80 mg PO DAILY Qty: 90 2RF Patient Comments: states has not been taking lately because it sticks in her throat Discharge Orders: Discharge Order (Routine); Ordered 07/31/23 Ordered By: Wojciech Siddiqui Referrals: Regulo Kelley, [Primary Care Provider] - (We have notified your physician's clinic of the need for a follow-up appointment to be scheduled. If you have not heard from them within the next 2 business days, please call them directly. ) Evon Lopez FNP [Nurse Practitioner] - 7-10 days (We have notified your physician's clinic of the need for a follow-up appointment to be scheduled. If you have not heard from them within the next 2 business days, please call them directly. ) Discharge Diet: Cardiac Discharge Activity: Increase activity as tolerated Patient Instructions: Metoprolol (By mouth) (Lopressor, Toprol XL), Amlodipine (By mouth), Ondansetron (By mouth), Losartan (By mouth) (Cozaar), Clopidogrel (By mouth) (Plavix), Hypertension (DC), Heart Catheterization (DC), Coronary Intravascular Stent Placement (DC), COPD Stoplight, Chest Pain Stoplight, Opioid Safety, Post Angiogram Home Care Instructions, Post Heart Attack Stoplight Discharge Attestations Time Spent in Discharge Care*: less than 30 min Quality Metrics Clinical Quality Measures [ No reported AMI, CVA or VTE this stay] Coding Level of Care Code Acute Code for [facility] Diagnoses NSTEMI (non-ST elevated myocardial infarction) I21.4 Hyperlipidemia associated with type 2 diabetes mellitus E11.69; E78.5 Primary hypertension I10 Hypertension type: primary hypertension Chronic combined systolic and diastolic congestive heart failure I50.42 Heart failure chronicity: chronic Heart failure type: combined systolic and diastolic
--- NOTE | 2023-07-31 13:57 | PC.NURSE ---
pt urinated to the bathroom with walker. tolerated act. well.
== END 2023-07-31 16:21 | disposition home or self-care (01) | DRG 322 ==
LOC: ER 17:47 → ICU 18:02 → CSU 07-30 14:49
PROVIDERS: Internal Medicine; Admitting Provider Internal Medicine; Emergency Provider Emergency Medicine; PCP Family Medicine; Visit Provider Internal Medicine
PROC: 027035Z Dilation of Coronary Artery, One Artery with Two Drug-eluting Intraluminal Devices, Percutaneous Approach (ICD-10-PCS; principal; 2023-07-28 17:15)
PROC: 027035Z Dilation of Coronary Artery, One Artery with Two Drug-eluting Intraluminal Devices, Percutaneous Approach (ICD-10-PCS; 2023-07-28 17:15)
DX: I21.11 ST elevation (STEMI) myocardial infarction involving right coronary artery (principal); I50.42 Chronic combined systolic (congestive) and diastolic (congestive) heart failure; I25.110 Atherosclerotic heart disease of native coronary artery with unstable angina pectoris; I11.0 Hypertensive heart disease with heart failure; J43.2 Centrilobular emphysema; E11.69 Type 2 diabetes mellitus with other specified complication; E78.2 Mixed hyperlipidemia; I65.23 Occlusion and stenosis of bilateral carotid arteries; K21.9 Gastro-esophageal reflux disease without esophagitis; D64.9 Anemia, unspecified; R30.0 Dysuria; Z87.891 Personal history of nicotine dependence; Z86.711 Personal history of pulmonary embolism; Z79.01 Long term (current) use of anticoagulants
CPT/HCPCS: 36415; 36416; 71045; 80048; 80053; 81001; 82962; 83690; 83735; 84145; 84484; 85025; 85347; 86140; 87086; 92610; 92978; 92979; 93005; 93306; 93458; 96374; 96375; 96376; 97116; 97162; 99152; 99153; 99291; C1725; C1753; C1760; C1769; C1874; C1887; C1894; C9600; G0269; J0360; J0461; J0696; J1644; J2250; J2270; J2405; J3010; J3490; J7030; J7040; Q9967

== ENCOUNTER → 2023-08-31 10:09 | Outpatient (BNVA) | payer MEDICARE, MEDICAID, SELFPAY | PROVIDERS: PCP Family Medicine; Visit Provider Nurse Practitioner Family | DX: I25.10 Atherosclerotic heart disease of native coronary artery without angina pectoris (principal); I10 Essential (primary) hypertension; Z87.891 Personal history of nicotine dependence | CPT/HCPCS: 99214 ==

== ENCOUNTER → 2023-09-05 11:23 | Outpatient (BNVA) | payer MEDICARE, MEDICAID, SELFPAY | PROVIDERS: PCP Family Medicine; Visit Provider Nurse Practitioner | DX: R30.0 Dysuria (principal) | CPT/HCPCS: 87086 ==

== ENCOUNTER → 2023-09-14 10:51 | Outpatient (CLI) | payer MEDICARE, MEDICAID, SELFPAY ==
--- NOTE | 2023-09-14 11:00 | CT_ITS ---
WS: [id number] LDCT LUNG CANCER SCREENING TECHNIQUE: Noncontrast CT of the chest with coronal and sagittal reformatted images. CLINICAL INFORMATION: Z87.891 - Personal history of nicotine dependence COMPARISON: None. DLP: 61.82 mGy.cm DIvol: Mean CTDIvol: 1.50 (mGy) All CT scans at [facility] use at least one of these dose optimization techniques: automat ed exposure control; mA and/or kV adjustment per patient size (includes targeted exams where dose is matched to clinical indication); or iterative reconstruction. FINDINGS: Calcified granuloma RIGHT upper lobe. Subsegmental atelectasis in the RIGHT lower lobe. Associated pl eural-based nodule RIGHT lower lobe measuring 7-8 mm in the area of scarring. 4 mm nodule LEFT lower lobe. Normal caliber thoracic aorta. Aortic calcification. Coronary calcification. Enlarged main pulmonary arteries can be seen with pulmonary arterial hypertension. Calcified paratracheal and subcarinal lymp h nodes. Calcified RIGHT hilar lymph nodes. No axillary lymphadenopathy. Splenic artery calcification. Tiny esophageal hiatal hernia. Adrenal glands are normal. Aortic calci fication. Moderate thoracic kyphosis with hypertrophic changes thoracic spine. Few incidental hemangi omas in the mid and lower thoracic spine. Partially visualized spinal stimulator. 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 CT/CT lung screening [id number] IMPRESSION: Pleural-based irregular nodule RIGHT lower lobe posteromedially torrey suring 7-8 mm. Recommend 3-month follow-up. This is probably too small for adeq uate evaluation by PET/CT. This is similar in appearance to 09/11/2022 but new fr om the earlier studies. LUNG-RADS: 4A-Probably Suspicious FOLLOW UP: 3 Month LDCT
== END | disposition home or self-care (01) ==
LOC: RAD 10:50
PROVIDERS: PCP Family Medicine; Visit Provider Internal Medicine Pulmonary Disease
DX: Z12.2 Encounter for screening for malignant neoplasm of respiratory organs (principal); Z87.891 Personal history of nicotine dependence; J84.10 Pulmonary fibrosis, unspecified; J98.11 Atelectasis; R91.8 Other nonspecific abnormal finding of lung field; I70.0 Atherosclerosis of aorta; I25.84 Coronary atherosclerosis due to calcified coronary lesion; I28.1 Aneurysm of pulmonary artery; I27.21 Secondary pulmonary arterial hypertension; I89.8 Other specified noninfective disorders of lymphatic vessels and lymph nodes; D73.89 Other diseases of spleen; M40.204 Unspecified kyphosis, thoracic region; I71.23 Aneurysm of the descending thoracic aorta, without rupture
CPT/HCPCS: 71271

== ENCOUNTER → 2023-09-25 12:42 | Outpatient (BNVA) | payer MEDICARE, MEDICAID, SELFPAY | PROVIDERS: PCP Family Medicine; Visit Provider Internal Medicine Critical Care Medicine | DX: J43.2 Centrilobular emphysema (principal); J96.11 Chronic respiratory failure with hypoxia; I50.42 Chronic combined systolic (congestive) and diastolic (congestive) heart failure; I25.10 Atherosclerotic heart disease of native coronary artery without angina pectoris; K21.9 Gastro-esophageal reflux disease without esophagitis; R91.8 Other nonspecific abnormal finding of lung field; R91.1 Solitary pulmonary nodule; Z86.711 Personal history of pulmonary embolism; E66.9 Obesity, unspecified; R53.81 Other malaise; J44.9 Chronic obstructive pulmonary disease, unspecified; Z68.30 Body mass index [BMI] 30.0-30.9, adult | CPT/HCPCS: 99214 ==

== ENCOUNTER → 2023-10-17 12:09 | Outpatient (BNVA) | payer MEDICARE, MEDICAID, SELFPAY | PROVIDERS: PCP Family Medicine; Visit Provider Family Medicine | DX: D50.9 Iron deficiency anemia, unspecified (principal); J96.11 Chronic respiratory failure with hypoxia; E87.6 Hypokalemia | CPT/HCPCS: 80048; 82728; 83540; 83550; 85025 ==

== ENCOUNTER → 2023-11-15 14:09 | Outpatient (BNVA) | payer MEDICARE, MEDICAID, SELFPAY | PROVIDERS: PCP Family Medicine; Visit Provider Family Medicine | DX: I10 Essential (primary) hypertension (principal) | CPT/HCPCS: 85025 ==

== ENCOUNTER → 2023-11-28 10:12 | Outpatient (BNVA) | payer MEDICARE, MEDICAID, SELFPAY | PROVIDERS: PCP Family Medicine; Visit Provider Family Medicine | DX: I10 Essential (primary) hypertension (principal) | CPT/HCPCS: 85025 ==

== ENCOUNTER 2023-12-01 08:01 | Oncology outpatient (recurring) (ONCR) | payer MEDICARE, MEDICAID, SELFPAY ==
[2023-12-01] MEDS: sodium chloride 0.9% 250 mL Bag IV (10:26)
[2023-12-01 10:35] VITALS: BP 147/63; PULSE 57; RESP 16; TEMP 36.5; O2SAT 97
[2023-12-01 10:50] VITALS: BP 137/67; PULSE 60; RESP 16; TEMP 36.5; O2SAT 95
[2023-12-01 11:05] VITALS: BP 131/72; PULSE 72; RESP 16; TEMP 36.5; O2SAT 96
[2023-12-01 12:00] VITALS: BP 138/56; PULSE 62; RESP 16; TEMP 36.6; O2SAT 97
[2023-12-01 12:10] VITALS: BP 138/56; PULSE 62; RESP 16; TEMP 36.6; O2SAT 97
== END 2023-12-04 23:59 | disposition home or self-care (01) ==
LOC: ONCMED 08:02
PROVIDERS: PCP Family Medicine; Visit Provider Family Medicine
DX: D64.9 Anemia, unspecified (principal)
CPT/HCPCS: 36430; 86850; 86900; 86920; J7050; P9040

== ENCOUNTER → 2023-12-14 14:46 | Outpatient (BNVA) | payer MEDICARE, MEDICAID, SELFPAY | PROVIDERS: PCP Family Medicine; Visit Provider Family Medicine | DX: D50.9 Iron deficiency anemia, unspecified (principal) | CPT/HCPCS: 82728; 83550; 85025 ==

== ENCOUNTER 2023-12-26 12:52 | Outpatient (CLI) | payer MEDICARE, MEDICAID, SELFPAY ==
[2023-12-26 13:16] VITALS: PULSE 66; RESP 18; O2SAT 94
[2023-12-26] MEDS: albuterol 2.5 mg/3 mL Neb INHALATION (13:16)
[2023-12-26 13:20] VITALS: PULSE 68
== END 2023-12-26 12:53 | disposition home or self-care (01) ==
LOC: RT 12:54
PROVIDERS: PCP Family Medicine; Visit Provider Internal Medicine Critical Care Medicine
DX: R06.09 Other forms of dyspnea (principal); R94.2 Abnormal results of pulmonary function studies
CPT/HCPCS: 94060; 94726; 94729; J7613

== ENCOUNTER 2023-12-29 10:30 | Oncology outpatient (recurring) (ONCR) | payer MEDICARE, MEDICAID, SELFPAY ==
[2023-12-19] MEDS: iron sucrose 200 MG in sodium chloride 0.9% (100 ml) 100 ML 220 MG IV (14:57)
[2023-12-19 15:00] VITALS: BP 123/58; PULSE 57; RESP 16; TEMP 36.2; O2SAT 95
[2023-12-19 15:40] VITALS: BP 110/54; PULSE 52; RESP 16; TEMP 36.7; O2SAT 91
[2023-12-21] MEDS: iron sucrose 200 MG in sodium chloride 0.9% (100 ml) 100 ML 220 MG IV (14:47)
[2023-12-21 14:52] VITALS: BP 118/59; PULSE 82; RESP 18; TEMP 36.8; O2SAT 93
[2023-12-21 15:20] VITALS: BP 136/60; PULSE 59; RESP 17; TEMP 36.7; O2SAT 93
[2023-12-25 14:47] VITALS: BP 101/54; PULSE 65; RESP 17; TEMP 36.2; O2SAT 96
[2023-12-25] MEDS: iron sucrose 200 MG in sodium chloride 0.9% (100 ml) 100 ML 220 MG IV (14:59)
[2023-12-25 15:38] VITALS: BP 122/67; PULSE 65; RESP 18; TEMP 36.2; O2SAT 95
[2023-12-27] MEDS: iron sucrose 200 MG in sodium chloride 0.9% (100 ml) 100 ML 220 MG IV (15:14)
[2023-12-27 15:54] VITALS: BP 120/78; PULSE 87; RESP 17; TEMP 36.1; O2SAT 94
[2023-12-29] MEDS: iron sucrose 200 MG in sodium chloride 0.9% (100 ml) 100 ML 220 MG IV (10:58)
[2023-12-29 11:42] VITALS: BP 145/66; PULSE 58; RESP 18; TEMP 36.9; O2SAT 99
== END 2024-01-04 23:59 | disposition home or self-care (01) ==
PROVIDERS: PCP Family Medicine; Visit Provider Family Medicine
DX: D50.9 Iron deficiency anemia, unspecified (principal); Z79.899 Other long term (current) drug therapy; Z53.9 Procedure and treatment not carried out, unspecified reason
CPT/HCPCS: 96365; J1756

== ENCOUNTER → 2024-01-02 10:06 | Outpatient (BNVA) | payer MEDICARE, MEDICAID, SELFPAY | PROVIDERS: PCP Family Medicine; Visit Provider Registered Nurse Neonatal Intensive Care | DX: R39.9 Unspecified symptoms and signs involving the genitourinary system (principal) | CPT/HCPCS: 81000; 87086 ==

== ENCOUNTER → 2024-01-11 10:18 | Outpatient (BNVA) | payer MEDICARE, MEDICAID, SELFPAY | PROVIDERS: PCP Family Medicine | DX: R39.9 Unspecified symptoms and signs involving the genitourinary system (principal) | CPT/HCPCS: 81000 ==

== ENCOUNTER → 2024-01-17 14:43 | Outpatient (BNVA) | payer MEDICARE, MEDICAID, SELFPAY | PROVIDERS: PCP Family Medicine; Visit Provider Family Medicine | DX: R06.02 Shortness of breath (principal); R09.89 Other specified symptoms and signs involving the circulatory and respiratory systems; I51.7 Cardiomegaly; I70.0 Atherosclerosis of aorta | CPT/HCPCS: 71046 ==

== ENCOUNTER 2024-01-22 09:18 | Emergency (ER) | payer MEDICARE, MEDICAID, SELFPAY ==
[2024-01-22 09:24] VITALS: BP 121/53; PULSE 54; RESP 18; TEMP 36.7; O2SAT 96; BMI 30.1
--- NOTE | 2024-01-22 09:25 | XR_ITS ---
WS: [id number] Exam: XR chest 1V portable [id number] Date/Time of Exam: 01/22/2024 9:47 AM Reason For Exam: dyspnea/cough Comparison 01/17/2024. Lungs are fully inflated and clear. The heart is enlarged. No pleural effusions. The mediastinum and osseous thorax are unremarkable. Surgical clips in the RIGHT neck. Degenerative change and scoliosis of the thoracic spine. XR/XR chest 1V portable [id number] IMPRESSION: 1. Cardiac enlargement unchanged. No acute process.
--- NOTE | 2024-01-22 09:31 | ED_ITS ---
HPI - SOB/Dyspnea 2 General: Chief Complaint: General Medical Stated Complaint: SOB,weakness,dizzy Time Seen by Provider: 01/22/24 09:24 History of Present Illness: HPI Narrative: 78-year-old female presents emergency ro om complaining of any shortness of breath dizzy and weak. She has been treated recently for an antibiotics for a bladder infection presumed pneumonia based on clinical findings. She has your breathing is better she is notably on 2 L by nasal cannula of oxygen. She has completed the whole course of the oral antibiotics a year ago she had PEs related to a prolonged ICU stay and she is currently still taking Eliquis she has a known history of coronary artery disease had a stent placed within the last year and is on Plavix as well she has not had any hematemesis coffee- ground emesis he medic easier or melena. No vomiting no diarrhea denies chest pain Associated symptoms: Deny abdominal pain, chest pain or fever(s) Related Data Home Medications Medication Instructions Recorded Confirmed cetirizine 10 mg tablet 10 mg PO DAILY PRN allergy symtoms 01/22/24 01/22/24 fluticasone propionate 50 1 spray intranasal BID PRN 01/22/24 01/22/24 mcg/actuation nasal allergies spray,suspension (Flonase Allergy Relief) pantoprazole 40 mg tablet,delayed 40 mg PO BID 01/22/24 01/22/24 release Previous Rx's Medication Instructions Recorded amlodipine 10 mg tablet 10 mg PO DAILY #90 tabs 07/31/23 clopidogrel 75 mg tablet 75 mg PO DAILY #90 tabs 07/31/23 losartan 50 mg tablet 50 mg PO DAILY #60 tabs 07/31/23 atorvastatin 80 mg tablet 80 mg PO DAILY #90 tabs 08/01/23 Ventolin HFA 90 mcg/actuation 2 puff inhalation Q4H PRN 08/16/23 aerosol inhaler (albuterol sulfate) shortness of breath or wheezing #18 grams apixaban 2.5 mg tablet 2.5 mg PO BID #60 tabs 09/19/23 metoprolol tartrate 25 mg tablet 25 mg PO BID #180 tabs 09/19/23 ondansetron HCl 4 mg tablet 4 mg PO Q8H PRN nausea and 09/19/23 vomiting #30 tabs budesonide 0.5 mg/2 mL suspension 0.25 mg inhalation BID #60 mL 10/09/23 for nebulization leg brace (Ankle Brace) #1 ea 11/02/23 formoterol fumarate 20 mcg/2 mL 2 ml inhalation BID copd #120 mL 11/09/23 solution for nebulization (Perforomist) ipratropium bromide 0.02 % 2.5 ml inhalation TID J44.9 COPD 11/09/23 solution for inhalation #300 mL albuterol sulfate 2.5 mg/3 mL 2.5 mg (3 mL) inhalation QID PRN 11/15/23 (0.083 %) solution for nebulization shortness of breath or wheezing #75 mL budesonide-formoterol HFA 160 2 puff inhalation BID #10.2 grams 12/14/23 mcg-4.5 mcg/actuation aerosol inhaler (Symbicort) nitroglycerin 0.4 mg sublingual See Rx Instructions .Route 01/11/24 tablet .COMPLEX #25 tabs escitalopram oxalate 10 mg tablet 10 mg PO DAILY #30 tabs 01/18/24 (Lexapro) Allergies Allergy/AdvReac Type Severity Reaction Status Date / Time adhesive tape Allergy Mild ALGY-Rash Verified 01/17/24 14:09 aspirin Allergy Unknown unknown Verified 01/17/24 14:09 Sulfa (Sulfonamide Allergy Unknown unknown Verified 01/17/24 14:09 Antibiotics) Review of Systems 2 Const: Reports: fatigue; Denies: fever(s) or chills Card: Denies: chest pain Resp: Reports: dyspnea and wheezing GI: Denies: abdominal pain : Denies: dysuria, urinary frequency or urinary urgency Musc: Denies: neck pain or back pain Skin/Breast: Denies: rash PFSH ED 2 PFSH: Medical History Moderate major depression Arthritis of both hands Coronary artery disease Leukocytosis NSTEMI (non-ST elevated myocardial infarction) Anemia Chest pain AVM (arteriovenous malformation) HTN (hypertension) Dark stools Pulmonary embolism COPD (chronic obstructive pulmonary disease) Hiatal hernia Diverticulosis Colon polyps Presence of intrathecal pump Bilateral carotid artery stenosis Hyperlipidemia associated with type 2 diabetes mellitus Ventricular hypertrophy Surgical History H/O: hysterectomy H/O cataract extraction Hx of appendectomy Family History Mother CAD (coronary artery disease), Onset Age: 70 Cancer Dementia Sister Diabetes Denies family history of Clotting disorder Chronic kidney disease (CKD) Suicide Anesthesia complication Bleeding disorder Lung disease Stroke Social History Smoking and tobacco/nicotine status: former use of tobacco/nicotine Quit status (tobacco/nicotine): has quit using Year quit tobacco: 2022 Former quit date comment: 1.5 ppd X 50 Alcohol intake: never Substance/Drug Use: never Female Reproductive History: Spontaneous abortions: No Physical Exam 2 Const: GENERAL APPEARANCE: cooperative ORIENTATION/CONSCIOUSNESS: Yes awake HENMT: COMMON NORMALS: normocephalic, atraumatic and hearing grossly normal bilaterally HEAD & SCALP: normocephalic and atraumatic Resp: COMMON NORMALS: normal respiratory effort, No retractions, No use of accessory muscles and clear to auscultation bilaterally AUSCULTATION: clear to auscultation bilaterally Cardio: COMMON NORMALS: regular rate, regular rhythm and No murmurs present (Cardio) RATE: regular rate RHYTHM: regular rhythm GI: COMMON NORMALS: Soft to palpation and No hepatosplenomegaly present A USCULTATION: Yes normoactive bowel sounds PALPATION: Yes Soft to palpation, No Tenderness to palpation present (GI), No Guarding due to palpation present (GI) and Yes No hepatosplenomegaly present Extremity: COMMON NORMALS: normal to inspection, capillary refill normal, no clubbing, cyanosis or edema, no calf tenderness and no pedal edema Skin: COMMON NORMALS: no rashes or lesions noted GENERAL SKIN EXAM: no rashes or lesions noted Course 2 Vital Signs: Vital signs: Vital Signs Temperature 98.1 F 01/22/24 09:24 Pulse Rate 54 L 01/22/24 13:26 Respiratory Rate 18 01/22/24 09:24 Blood Pressure 126/51 01/22/24 13:26 Pulse Oximetry 96 01/22/24 13:26 Oxygen Delivery Me thod Room Air 01/22/24 12:48 MDM - SOB/Dyspnea Medical Decision Making Labs and imaging reviewed patient was very concerned about hemoglobin that was normal the remainder of the workup was essentially unremarkable. I suspect some of her symptoms may be from taking the new SSRI which she also thinks may be related. Recommend taking a half a tablet of the escitalopram daily for 6 to 8 days then increase to a full tablet. Follow-up with her primary care doctor after that. Reevaluate temp discharge is stable is no complaints. Medical Records I reviewed the patient's medical records. Lab Data I reviewed the patient's lab results. 01/22/24 09:00 01/22/24 09:00 Labs/Radiology: Radiology Impressions Chest X-Ray 01/22/24:25 IMPRESSION: 1. Cardiac enlargement unchanged. No acute process. Laboratory Results WBC 8.27 10^3/uL (3.29-11.43) 01/22/24 09:00 RBC 4.07 10^6/uL (3.85-5.65) 01/22/24 09:00 Hgb 10.40 g/dL (11.27-16.99) L 01/22/24 09:00 Hct 34.2 % (36-47) L 01/22/24 09:00 MCV 84.0 fl (85-98) L 01/22/24 09:00 MCH 25.6 pg (27-33) L 01/22/24 09:00 MCHC 30.4 g/dL (30-55) 01/22/24 09:00 RDW 22.0 % (12.1-15.1) H 01/22/24 09:00 Plt Count 356 10^3/cmm (157-399) 01/22/24 09:00 MPV 10.5 fL (7.4-10.4) H 01/22/24 09:00 Neut % (Auto) 77.5 % 01/22/24 09:00 Lymph % (Auto) 16.0 % 01/22/24 09:00 Bonner % (Auto) 4.5 % 01/22/24 09:00 Eos % (Auto) 0.7 % 01/22/24 09:00 Baso % (Auto) 0.8 % 01/22/24 09:00 Neut # (Auto) 6.41 10^3/uL (1.8-7.7) 01/22/24 09:00 Lymph # (Auto) 1.3 10^3/uL (0.8-4.8) 01/22/24 09:00 Bonner # (Auto) 0.4 10^3/uL (0.2-0.9) 01/22/24 09:00 Eos # (Auto) 0.1 10^3/uL (0.0-0.8) 01/22/24 09:00 Baso # (Auto) 0.1 10^3/uL (0.0-0.1) 01/22/24 09:00 Nucleated RBC % (auto) 0 % 01/22/24 09:00 Nucleated RBCs # 0.0 /100WBC 01/22/24 09:00 Sodium 138 mmol/L (136-145) 01/22/24 09:00 Potassium 3.7 mmol/L (3.5-5.1) 01/22/24 09:00 Chloride 102 mmol/L (98-107) 01/22/24 09:00 Carbon Dioxide 22 mmol/L (22-29) 01/22/24 09:00 Anion Gap 17.7 (5-19) 01/22/24 09:00 BUN 19 mg/dL (8-23) 01/22/24 09:00 Creatinine 1.5 mg/dL (0.5-0.9) H 01/22/24 09:00 GFR Calculation Not Reportable 01/22/24 09:00 Glucose 183 mg/dL (65-115) H 01/22/24 09:00 Calculated Osmolality 293 mOsm/kg (285-295) 01/22/24 09:00 Calcium 8.6 mg/dL (8.5-10.5) 01/22/24 09:00 Total Bilirubin 0.4 mg/dL (0.15-1.2) 01/22/24 09:00 AST 11 U/L (0-32) 01/22/24 09:00 ALT 6 U/L (0-33) 01/22/24 09:00 Alkaline Phosphatase 89 U/L (35-105) 01/22/24 09:00 Troponin T Baseline 21 ng/L (0-10) H 01/22/24 09:00 Troponin T 120 Minute 20.82 ng/L (0-10) H 01/22/24 11:02 Delta Troponin T -0.18 ABS# (0-10) L 01/22/24 11:02 Total Protein 6.7 g/dL (6.6-8.7) 01/22/24 09:00 Albumin 4.1 g/dL (3.5-5.2) 01/22/24 09:00 Globulin 2.6 g/dL (1.3-4.6) 01/22/24 09:00 Urine Color Yellow (Yellow) 01/22/24 10:57 Urine Appearance Clear (CLEAR) 01/22/24 10:57 Urine pH 5.0 (5-7) 01/22/24 10:57 Ur Specific [place] 1.018 (1.005-1.030) 01/22/24 10:57 Urine Protein Trace (Negative) A 01/22/24 10:57 Urine Glucose (UA) Negative (Normal) 01/22/24 10:57 Urine Ketones Negative (Negative) 01/22/24 10:57 Urine Blood Negative (Negative) 01/22/24 10:57 Urine Nitrate Negative (Negative) 01/22/24 10:57 Urine Bilirubin Negative (Negative) 01/22/24 10:57 Urine Urobilinogen 0.2 mg/dL (Negative) 01/22/24 10:57 Ur Leukocyte Esterase Negative (Negative) 01/22/24 10:57 Urine RBC 0-2 /hpf (0-2) 01/22/24 10:57 Urine WBC 0-5 /hpf (0-5) 01/22/24 10:57 Ur Squamous Epith Cells 0-5 /hpf (0-5) 01/22/24 10:57 Amorphous Sediment Not Reportable 01/22/24 10:57 Urine Bacteria None seen /hpf (NONE) 01/22/24 10:57 Hyaline Casts 4.52 /lpf 01/22/24 10:57 Coronavirus (PCR) Negative (Negative) 01/22/24 09:57 Influenza A (PCR) Negative (Negative) 01/22/24 09:57 Influenza Type B (PCR) Negative (Negative) 01/22/24 09:57 RSV (PCR) Negative (Negative) 01/22/24 09:57 All radiology interpretation(s) finalized by discharge Discharge Plan Discharge Patient Disposition: Home Clinical Impression: Medication side effects Iron deficiency anemia Qualifiers: Iron deficiency anemia type: unspecified iron deficiency Qualified Code(s): D 50.9 - Iron deficiency anemia, unspecified Condition: Stable Prescriptions: No Action apixaban 2.5 mg tablet 2.5 mg PO BID Qty: 60 5RF metoprolol tartrate 25 mg tablet 25 mg PO BID Qty: 180 2RF ondansetron HCl 4 mg tablet 4 mg PO Q8H PRN (Reason: nausea and vomiting) Qty: 30 2RF budesonide 0.5 mg/2 mL suspension for nebulization 0.25 mg inhalation BID Qty: 60 6RF albuterol sulfate 2.5 mg /3 mL (0.083 %) solution for nebulization 2.5 mg inhalation QID PRN (Reason: shortness of breath or wheezing) Qty: 75 3RF budesonide-formoterol [Symbicort] 160-4.5 mcg/actuation HFA aerosol inhaler 2 puff inhalation BID Qty: 10.2 5RF escitalopram oxalate [Lexapro] 10 mg tablet 10 mg PO DAILY Qty: 30 1RF atorvastatin 80 mg tablet 80 mg PO DAILY Qty: 90 2RF Patient Comments: albuterol sulfate [Ventolin HFA] 90 mcg/actuation HFA aerosol inhaler 2 puff inhalation Q4H PRN (Reason: shortness of breath or wheezing) Qty: 18 5RF (DME) Ankle Brace Misc See Rx Instructions .Route Qty: 1 0RF Rx Instructions: As directed formoterol fumarate [Perforomist] 20 mcg/2 mL solution for nebulization 2 ml inhalation BID Qty: 120 6RF ipratropium bromide 0.02 % solution 2.5 ml inhalation TID Qty: 300 3RF nitroglycerin 0.4 mg tablet, sublingual See Rx Instructions .ROUTE .COMPLEX Qty: 25 2RF Dose Instruction: DISSOLVE 1 TABLET UNDER THE TONGUE EVERY 5 MINUTES NEEDED FOR CHEST PAIN. DO NOT EXCEED A TOTAL OF 3 DOSES IN 15 MINUTES. Rx Instructions: DISSOLVE 1 TABLET UNDER THE TONGUE EVERY 5 MINUTES NEEDED FOR CHEST PAIN. DO NOT EXCEED A TOTAL OF 3 DOSES IN 15 MINUTES. cetirizine 10 mg tablet 10 mg PO DAILY PRN (Reason: allergy symtoms) pantoprazole 40 mg tablet,delayed release (DR/EC) 40 mg PO BID fluticasone propionate [Flonase Allergy Relief] 50 mcg/actuation spray,suspension 1 spray intranasal BID PRN (Reason: allergies) Rx Instructions: administer into each nostril losartan 50 mg Tablet 50 mg PO DAILY Qty: 60 3RF clopidogrel 75 mg Tablet 75 mg PO DAILY Qty: 90 3RF amlodipine 10 mg Tablet 10 mg PO DAILY Qty: 90 3RF Discharge Orders: Discharge ED (Routine); Ordered 01/22/24 Ordered By: Solomon Sawant Referrals: Juan Carlos Sherman MD [Primary Care Provider] - Discharge Diet: Usual diet Discharge Activity: Resume usual activity Patient Instructions: Opioid Safety, Pain Management Activity Restrictions/Additional Instructions: Thank you for choosing [facility] for your healthcare needs today. It is very important that you follow up as instructed or that you return to the Emergency Department should you have concerns or if your condition changes or worsens in any way. You are seen today with complaints of feeling weak generally not feeling well urine did not show any signs of infection your hemoglobin is low which it chronically is but is actually much higher than it has been most often in the past. No other significant abnormalities were noted. Suspect that your symptoms may be side effect of the new medication you started recommend cutting the medicine in half taking half a tablet a day for 6 to 8 days and then go to a full tablet a day follow-up with primary care doctor for further adjustments. Coding Level of Care Code ED Manager [employer] for Veronica Perkins
[2024-01-22 09:51] LABS: Basophils # 0.1 10^3/uL (0.0-0.1); Basophils % 0.8 %; Eosinophils # 0.1 10^3/uL (0.0-0.8); Eosinophils % 0.7 %; Hematocrit 34.2 % (36-47); Lymphocytes # 1.3 10^3/uL (0.8-4.8); Mean Corpuscular HGB Conc 30.4 g/dL (30-55); Mean Corpuscular Hemoglobin 25.6 pg (27-33); Mean Platelet Volume 10.5 fL (7.4-10.4); Monocytes # 0.4 10^3/uL (0.2-0.9); Monocytes % 4.5 %; Neutrophils # 6.41 10^3/uL (1.8-7.7); Neutrophils % 77.5 %; Nucleated Red Blood Cells % 0 %; Platelet Count 356 10^3/cmm (157-399); Red Blood Count 4.07 10^6/uL (3.85-5.65); White Blood Count 8.27 10^3/uL (3.29-11.43)
[2024-01-22 10:02] VITALS: BP 101/53; PULSE 51; O2SAT 95
[2024-01-22 10:08] LABS: Alanine Aminotransferase 6 U/L (0-33); Albumin Level 4.1 g/dL (3.5-5.2); Alkaline Phosphatase 89 U/L (35-105); Anion Gap 17.7 (5-19); Aspartate Amino Transferase 11 U/L (0-32); Blood Urea Nitrogen 19 mg/dL (8-23); Calcium 8.6 mg/dL (8.5-10.5); Carbon Dioxide 22 mmol/L (22-29); Chloride 102 mmol/L (98-107); Creatinine Clr Calc Pharmacy 29.4121; Globulin 2.6 g/dL (1.3-4.6); Glucose 183 mg/dL (65-115); Osmolality Calculated 293 mOsm/kg (285-295); Potassium 3.7 mmol/L (3.5-5.1); Sodium 138 mmol/L (136-145); Total Bilirubin 0.4 mg/dL (0.15-1.2); Total Protein 6.7 g/dL (6.6-8.7); Troponin(5th) Baseline 21 ng/L (0-10)
--- NOTE | 2024-01-22 10:30 | PC.PHAR ---
Addendum entered by Rahda Sorensen 01/22/24 10:34: Pt ran out of Furosemide 40mg and Potassium 10meq, last filled in June for 90 day supply and never got refilled. Original Note: Pt states she has several medications for her nebulizer but does not have to use near as much due to her Symbicort 160-4.5 mcg inhaler.
--- NOTE | 2024-01-22 10:41 | ECG_ITS ---
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 Measurements Intervals [place] Rate: 52 P: 7 AL: 166 QRS: 72 QRSD: 114 T: 102 QT: 421 QTc: 395 Interpretive Statements SINUS BRADYCARDIA POSSIBLE LEFT VENTRICULAR HYPERTROPHY [VOLTAGE CRITERIA PLUS LAE OR QRS WIDENING] NONSPECIFIC ST & T-WAVE ABNORMALITY Compared to ECG 07/29/2023 02:44:26 No significant changes Electronically Signed On 01-22-2024 19:23:53 DEFENCE INTELLIGENCE ANALYST by Guicho Chavarria M.D. [email or web address]
[2024-01-22 10:55] LABS: Covid PCR NEGATIVE (Negative); Influenza A NEGATIVE (Negative); Influenza B NEGATIVE (Negative); Respiratory Syncytial Virus Ce NEGATIVE (Negative)
[2024-01-22 10:58] VITALS: BP 124/57; PULSE 53; O2SAT 95
[2024-01-22 11:09] LABS: Bilirubin Urine Negative (Negative); Blood Urine Negative (Negative); Glucose Urine UA Negative (Normal); Ketones Urine Negative (Negative); Leukocyte Esterase Urine Negative (Negative); Nitrate Urine Negative (Negative); Protein Urine Trace (Negative); Specific Gravity, Urine 1.018 (1.005-1.030); Urine Appearance Clear (CLEAR); Urine Color Yellow (Yellow); Urobilinogen Urine 0.2 mg/dL (Negative)
[2024-01-22 11:11] LABS: Add Urine Microscopic? YES; Bacteria Urine None Seen /hpf; Hyaline Casts Urine 4.52 /lpf; RBC Urine 0-2 /hpf (0-2); Squamous Epithelial Cell Urine 0-5 /hpf (0-5); WBC Urine 0-5 /hpf (0-5)
[2024-01-22 11:28] LABS: Troponin 5 2HR 20.82 ng/L (0-10)
[2024-01-22 11:29] LABS: Troponin 5 2HR Delta -0.18 ABS# (0-10)
--- NOTE | 2024-01-22 11:35 | ECG_ITS ---
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 Measurements Intervals [place] Rate: 53 P: 77 [place]: 158 QRS: 63 QRSD: 104 T: 93 QT: 445 QTc: 418 Interpretive Statements SINUS BRADYCARDIA WITH OCCASIONAL SUPRAVENTRICULAR PREMATURE COMPLEXES NONSPECIFIC ST & T-WAVE ABNORMALITY Compared to ECG 01/22/2024 10:41:34 No significant changes Electronically Signed On 01-22-2024 19:35:35 MERCHANDISE ADJUSTMENT CLERK by Guicho Chavarria M.D. [email or web address]
[2024-01-22 11:46] VITALS: BP 128/80; PULSE 87; O2SAT 98
[2024-01-22 12:48] VITALS: BP 135/55; PULSE 54; O2SAT 94
[2024-01-22 13:26] VITALS: BP 126/51; PULSE 54; O2SAT 96
== END 2024-01-22 13:27 | disposition home or self-care (01) ==
PROVIDERS: Emergency Provider Family Medicine; PCP Family Medicine
DX: D50.9 Iron deficiency anemia, unspecified (principal); T50.905A Adverse effect of unspecified drugs, medicaments and biological substances, initial encounter; X58.XXXA Exposure to other specified factors, initial encounter; Z87.891 Personal history of nicotine dependence; J44.9 Chronic obstructive pulmonary disease, unspecified; E78.49 Other hyperlipidemia; I10 Essential (primary) hypertension; I25.10 Atherosclerotic heart disease of native coronary artery without angina pectoris
CPT/HCPCS: 0241U; 36415; 71045; 80053; 81001; 84484; 85025; 93005; 99285

== ENCOUNTER 2024-03-28 14:51 | Oncology outpatient (recurring) (ONCR) | payer MEDICARE, MEDICAID, SELFPAY ==
--- NOTE | 2024-03-28 15:00 | CT_ITS ---
WS: [id number] CT chest wo con [id number] HISTORY: new pulmonary nodule TECHNIQUE: Axial imaging performed through the thorax. Coronal and sagittal reformats are submitted. All CT scans at [facility] use at least one of these dose optimization techniques: automated exposure control; mA and/or kV adjustment per patient size (includes targeted exams where dose is mat ched to clinical indication); or iterative reconstruction. CONTRAST: None DLP: 337.00 mGy.cm COMPARISON: 09/14/2023, 09/11/2022, 06/09/2021 Lungs and central airway: Mild pulmonary hyperexpansion. Pleural-based nodule along the posterior med ial LEFT lower lobe measures 10 x 7 mm and has not changed in size. Pleural thickening continues into the paraspinal region with additional pleural scarring in the RIGHT lower lobe. 4 mm nodule at the L EFT lung base is not identified today. Pleura: Normal. No pleural effusion. Heart and pericardium: Mild cardiomegaly with no pericardial effusion. Anterior pericardial thickenin g. Mediastinum and babak: Calcified RIGHT hilar lymph nodes. 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 Chest wall and lower neck: No soft tissue masses. Upper abdomen: Mild atrophy upper pole of each kidney. No adrenal mass. Splenic calcifications. Osseous structures: Increase in thoracic kyphosis. Spinal cord stimulator noted terminating in the mi dthoracic region. CT/CT chest wo con [id number] IMPRESSION: 1. No interval change in the pleural-based nodule in the medial RIGHT lower lo be since 09/14/2023. Nodule measures 10 x 7 mm. Recommend continued imaging foll ow-up. Follow-up chest CT with IV contrast in 6 months. 2. Stable pleural thickening in the posterior medial RIGHT lower lobe. 3. Mild cardiomegaly. 4. Stable descending thoracic aortic pseudoaneurysm.
== END 2024-04-05 23:59 | disposition home or self-care (01) ==
LOC: RAD 14:54 → ONCMED 03-29 08:18
PROVIDERS: PCP Family Medicine; Visit Provider Family Medicine
DX: R91.1 Solitary pulmonary nodule (principal); I51.7 Cardiomegaly; I71.23 Aneurysm of the descending thoracic aorta, without rupture
CPT/HCPCS: 71250

== ENCOUNTER → 2024-04-03 12:22 | Outpatient (BNVA) | payer MEDICARE, MEDICAID, SELFPAY | PROVIDERS: PCP Family Medicine; Visit Provider Internal Medicine | DX: I10 Essential (primary) hypertension (principal); D50.0 Iron deficiency anemia secondary to blood loss (chronic); J43.2 Centrilobular emphysema; I26.94 Multiple subsegmental thrombotic pulmonary emboli without acute cor pulmonale; D50.9 Iron deficiency anemia, unspecified; E78.2 Mixed hyperlipidemia; I65.23 Occlusion and stenosis of bilateral carotid arteries; I25.10 Atherosclerotic heart disease of native coronary artery without angina pectoris | CPT/HCPCS: 99214 ==

== ENCOUNTER 2024-05-14 14:52 | Outpatient (RCR) | payer MEDICARE, MEDICAID, SELFPAY | END 2024-06-03 23:59 | disposition home or self-care (01) | LOC: CR 14:52 | PROVIDERS: PCP Family Medicine; Referring Provider Internal Medicine; Visit Provider Internal Medicine | DX: Z95.5 Presence of coronary angioplasty implant and graft (principal) | CPT/HCPCS: 93798 ==

== ENCOUNTER 2024-06-04 09:43 | Outpatient (RCR) | payer MEDICARE, MEDICAID, SELFPAY | END 2024-07-03 23:59 | disposition home or self-care (01) | LOC: CR 09:43 | PROVIDERS: PCP Family Medicine; Referring Provider Internal Medicine; Visit Provider Internal Medicine | DX: Z95.5 Presence of coronary angioplasty implant and graft (principal) | CPT/HCPCS: 93798 ==

== ENCOUNTER → 2024-06-04 15:44 | Outpatient (BNVA) | payer MEDICARE, MEDICAID, SELFPAY | PROVIDERS: PCP Family Medicine; Visit Provider Dermatology | DX: L85.3 Xerosis cutis (principal); L98.8 Other specified disorders of the skin and subcutaneous tissue; L81.4 Other melanin hyperpigmentation; L82.1 Other seborrheic keratosis; Z08 Encounter for follow-up examination after completed treatment for malignant neoplasm | CPT/HCPCS: 17000; 17110; 99213 ==

== ENCOUNTER → 2024-07-02 11:45 | Outpatient (BNVA) | payer MEDICARE, MEDICAID, SELFPAY | PROVIDERS: PCP Family Medicine; Visit Provider Family Medicine | DX: D50.9 Iron deficiency anemia, unspecified (principal) | CPT/HCPCS: 80053; 82746; 83550; 85025 ==

== ENCOUNTER 2024-07-04 09:28 | Outpatient (RCR) | payer MEDICARE, MEDICAID, SELFPAY | END 2024-08-04 10:20 | disposition home or self-care (01) | LOC: CR 09:28 | PROVIDERS: PCP Family Medicine; Referring Provider Internal Medicine; Visit Provider Internal Medicine | DX: I25.10 Atherosclerotic heart disease of native coronary artery without angina pectoris (principal) | CPT/HCPCS: 93798; 94626 ==

== ENCOUNTER 2024-08-05 09:26 | Outpatient (CLI) | payer MEDICARE, MEDICAID, SELFPAY ==
--- NOTE | 2024-08-05 08:22 | US_ITS ---
WS: [id number] ULTRASOUND ABDOMEN CLINICAL INFORMATION: RUQ pain COMPARISON: None. FINDINGS: Liver Size: Normal. Craniocaudal length: 12.8 cm. Echogenicity: Normal. Surface nodularity: None. Mass (size and location): None. Bile ducts Intrahepatic ducts: Normal. Common bile duct diameter: 0.4 cm. Gallbladder Normal. Gallstones: None. Gallbladder sludge: None. Gallbladder wall thickening: None. Pericholecystic fluid: None. Sonographic Stephens sign: Absent. Pancreas Normal as visualized. Spleen Splenomegaly: None. Craniocaudal length: 7.1 cm. Right kidney: Normal. Hydronephrosis: None. Size: 8.0 cm x 4.3 cm x 3.8 cm Left kidney: Normal. Hydronephrosis: None. Size: 7.9 cm x 3.7 cm x 4.9 cm. Abdominal aorta and IVC Visualized portions are normal. Ascites: None. US/US abdomen complete* [id number] IMPRESSION: 1. No hydronephrosis in either kidney. 2. Gallbladder polyp versus sludge ball dependent gallbladder measuring 4 mm. No shadowing. 3. Normal common bile duct. 4. Normal liver.
== END 2024-08-05 09:27 | disposition home or self-care (01) ==
PROVIDERS: PCP Family Medicine; Visit Provider Family Medicine
DX: R10.11 Right upper quadrant pain (principal)
CPT/HCPCS: 76700

== ENCOUNTER 2024-08-06 10:23 | Outpatient (RCR) | payer MEDICARE, MEDICAID, SELFPAY | END 2024-09-02 23:59 | disposition home or self-care (01) | LOC: CR 10:23 | PROVIDERS: PCP Family Medicine; Referring Provider Internal Medicine; Visit Provider Internal Medicine | DX: Z95.5 Presence of coronary angioplasty implant and graft (principal) | CPT/HCPCS: 93798 ==

== ENCOUNTER 2024-08-14 12:13 | Inpatient (IN) | payer MEDICARE, MEDICAID, SELFPAY ==
[2024-08-14] VITALS (51 sets, daily range): BP systolic 70–119; BP diastolic 34–67; PULSE 50–103; RESP 12–24; TEMP 36.1; O2SAT 81–99
[2024-08-14 12:35] LABS: Basophils # 0.1 10^3/uL (0.0-0.1); Basophils % 0.5 %; Eosinophils # 0.1 10^3/uL (0.0-0.8); Eosinophils % 0.3 %; Hematocrit 31.1 % (36-47); Lymphocytes # 2.5 10^3/uL (0.8-4.8); Lymphocytes % 14.3 %; Mean Corpuscular HGB Conc 29.9 g/dL (30-55); Mean Corpuscular Hemoglobin 26.2 pg (27-33); Mean Corpuscular Volume 87.6 fl (85-98); Mean Platelet Volume 10.3 fL (7.4-10.4); Monocytes # 0.7 10^3/uL (0.2-0.9); Monocytes % 4.2 %; Neutrophils # 14.23 10^3/uL (1.8-7.7); Neutrophils % 80.1 %; Nucleated Red Blood Cells % 0 %; Platelet Count 458 10^3/cmm (157-399); Red Blood Count 3.55 10^6/uL (3.85-5.65); Red Cell Distribution Width 13.4 % (12.1-15.1); White Blood Count 17.75 10^3/uL (3.29-11.43)
--- NOTE | 2024-08-14 12:35 | ED_ITS ---
HPI - General Adult 2 General: Chief complaint: Nausea/Vomiting/Diarrhea Stated complaint: vomitting Time Seen by Provider: 08/14/24 12:26 History of Present Illness: 78-year-old female presents emergency ro om with sudden onset of vomiting this morning around 8 AM. She is not having any chest pain she states she had similar symptoms when she had previously had an [place]. She did report some mild dysuria. She is chronically on 2 L of oxygen. She had some occasional diarrhea no hematemesis or coffee-ground emesis. She is chronically anemic. She denies any shortness of breath she has some mild abdominal discomfort Associated symptoms: Reports dyspnea, nausea and vomiting; Deny chest pain or rash Related Data Home Medications ?Medication ?Instructions ?Recorded ?Confirmed apixaban 2.5 mg tablet (Eliquis) 2.5 mg PO BID 5 08/14/24 potassium chloride 10 mEq 10 meq PO DAILY 08/14/2401/28 capsule,extended release Previous Rx's ?Medication ?Instructions ?Recorded leg brace (Ankle Brace) #1 ea 11/02/23 albuterol sulfate 2.5 mg/3 mL 2.5 mg (3 mL) inhalation QID PRN 11/15/23 (0.083 %) solution for nebulization shortness of breat h or wheezing #75 mL nitroglycerin 0.4 mg sublingual See Rx Instructions .R oute 01/11/24 tablet .COMPLEX #25 tabs losartan 50 mg tablet 50 mg PO DAILY #90 tabs /3 ascorbate calcium (vitamin C) 500 500 mg PO DAILY #60 tabs 07/02/24 mg tablet fluticasone propionate 50 2 spray intranasal DAILY #16 grams 07/02/24 mcg/actuation nasal spray,suspension (Flonase Allergy Relief) methenamine hippurate 1 gram tablet 1 g PO BID #60 tab s 07/02/24 ferrous sulfate 325 mg (65 mg 325 mg PO .q48 3 months #45 tabs 07/03/24 iron) tablet (Feosol) metoprolol tartrate 25 mg tablet See Rx Instructions . Route 07/08/24 .COMPLEX #180 tabs cetirizine 10 mg tablet 10 mg PO DAILY PRN allergy s ymtoms 07/19/24 #90 tabs Ventolin HFA 90 mcg/actuation 2 puff inhalation Q4H NH N 08/06/24 aerosol inhaler (albuterol sulfate) shortness of breat h or wheezing #18 grams amlodipine 10 mg tablet See Rx Instructions .Route 0 08/06/24 .COMPLEX #90 tabs clopidogrel 75 mg tablet See Rx Instructions .Route 0 08/06/24 .COMPLEX #90 tabs pantoprazole 40 mg tablet,delayed 40 mg PO BID #180 ta bs 08/06/24 release Allergies Allergy/AdvReac Type Severity Reaction Status Date / Time adhesive tape Allergy Mild ALGY-Rash Verified 07/02/24 11:08 aspirin Allergy Unknown unknown Verified 07/02/24 11:08 Sulfa (Sulfonamide Allergy Unknown unknown Verified 07/02/24 11:08 Antibiotics) Review of Systems 2 Const: Denies: fever(s) or chills Card: Denies: chest pain Resp: Reports: dyspnea GI: Reports: nausea and vomiting; Denies: abdominal pain, hematemesis, coffee ground emesis, hematochezia or melena : Denies: dysuria, urinary frequency or urinary urgency Musc: Denies: neck pain or back pain Skin/Breast: Denies: rash PFSH ED 2 PFSH: Medical History Moderate major depression Arthritis of both hands Coronary artery disease Leukocytosis NSTEMI (non-ST elevated myocardial infarction) Anemia Chest pain AVM (arteriovenous malformation) HTN (hypertension) Dark stools Pulmonary embolism COPD (chronic obstructive pulmonary disease) Hiatal hernia Diverticulosis Colon polyps Presence of intrathecal pump Bilateral carotid artery stenosis Hyperlipidemia associated with type 2 diabetes mellitus Ventricular hypertrophy Surgical History H/O: hysterectomy H/O cataract extraction Hx of appendectomy Family History Mother CAD (coronary artery disease), Onset Age: 70 Cancer Dementia Sister Diabetes Denies family history of Clotting disorder Chronic kidney disease (CKD) Suicide Anesthesia complication Bleeding disorder Lung disease Stroke Social History Smoking and tobacco/nicotine status: former use of tobacco/nicotine Quit status (tobacco/nicotine): has quit using Year quit tobacco: 2022 Former quit date comment: 1.5 ppd X 50 Alcohol intake: never Substance/Drug Use: never Female Reproductive History: Spontaneous abortions: No Physical Exam 2 Const: GENERAL APPEARANCE: cooperative ORIENTATION/CONSCIOUSNESS: Yes awake, Yes oriented to person, Yes oriented to place and Yes oriented to time HENMT: COMMON NORMALS: normocephalic, atraumatic and hearing grossly normal bilaterally HEAD & SCALP: normocephalic and atraumatic Resp: COMMON NORMALS: normal respiratory effort, No retractions, No use of accessory muscles and clear to auscultation bilaterally AUSCULTATION: clear to auscultation bilaterally and diminished lung sounds Cardio: COMMON NORMALS: regular rate, regular rhythm and No murmurs present (Cardio) RATE: regular rate RHYTHM: regular rhythm GI: COMMON NORMALS: Soft to palpation and No hepatosplenomegaly present A USCULTATION: Yes normoactive bowel sounds PALPATION: Yes Soft to palpation, No Tenderness to palpation present (GI), No Guarding due to palpation present (GI) and Yes No hepatosplenomegaly present Extremity: COMMON NORMALS: normal to inspection, capillary refill normal, no clubbing, cyanosis or edema, no calf tenderness and no pedal edema Neuro: SENSORIUM/ORIENTATION: Yes oriented to person, Yes oriented to place and Yes oriented to time Skin: COMMON NORMALS: no rashes or lesions noted GENERAL SKIN EXAM: no rashes or lesions noted Course 2 Vital Signs: Vital signs: Vital Signs Temperature 97.9 F 08/15/24 08:30 Pulse Rate 59 L 08/15/24 09:17 Respiratory Rate 16 08/15/24 09:17 Blood Pressure 110/50 08/15/24 08:45 Pulse Oximetry 95 08/15/24 09:17 Oxygen Delivery Me thod Nasal Cannula 08/15/24 09:17 Oxygen Flow Rate 3 08/15/24 09:17 Fraction of Inspir ed Oxygen 35 08/15/24 04:00 [facility] - General Adult Medical Decision Making Patient again hypotensive and increasingly hypoxic requiring increased oxygen blood gas showed pH 7 2 she was started on BiPAP. She did seem to improve that her pCO2 is elevated as well. Trials off of BiPAP still require up to 4+ liters of oxygen to maintain sats around 90%. Cardiac enzymes are negative EKG does not show any acute changes. UA does show cystitis. Patient is chronically on Eliquis repeat D-dimer did not show any elevation. Her lactic acid is elevated raising concern for sepsis. Some mild acute kidney injury as well. She was given fluid bolus started on antibiotics and ultimately required Levophed for pressure support. CT chest abdomen pelvis did not show any particular abnormalities or acute findings. Medical Records I reviewed the patient's medical records. Lab Data I reviewed the patient's lab results. 08/15/24 03:55 08/15/24 03:55 Radiology Impressions Abdomen/Pelvis CT 08/14/24 12:37 IMPRESSION: 1. No acute abdominal or pelvic abnormalities identified. 2. Moderate cardiomegaly. 3. Ectatic abdominal aorta without aneurysmal dilatation. 4. No renal obstruction. 5. No GI tract obstruction or colitis. Chest/Abdomen/Pelvis CT 08/14/24 15:37 IMPRESSION: 1. Moderate cardiomegaly. 2. No evidence of acute intrathoracic process. 3. Enlarged pulmonary trunk and main pulmonary arteries suggestive of pulmonary arterial hypertension. IMPRESSION: 1. No evidence of acute abdominal or pelvic process. 2. 2.5 cm infrarenal abdominal aortic aneurysm. COMMENTS: Consistent with the [employer]'s Incidental Findings Committee white paper (J Am Bebe Radiol 2018): Any incidental renal lesion less than 1 cm or classified as too small to characterize, or any incidental cystic renal lesion characterized as simple-appearing, is likely benign. No follow-up imaging is recommended for these lesions per consensus recommendations based on imaging criteria. Laboratory Results WBC 17.75 10^3/uL (3.29-11.43) H 08/14/24 12:30 RBC 3.55 10^6/uL (3.85-5.65) L 08/14/24 12:30 Hgb 9.30 g/dL (11.27-16.99) L 08/14/24 12:30 Hct 31.1 % (36-47) L 08/14/24 12:30 MCV 87.6 fl (85-98) 08/14/24 12:30 MCH 26.2 pg (27-33) L 08/14/24 12:30 MCHC 29.9 g/dL (30-55) L 08/14/24 12:30 RDW 13.4 % (12.1-15.1) 08/14/24 12:30 Plt Count 458 10^3/cmm (157-399) H 08/14/24 12:30 MPV 10.3 fL (7.4-10.4) 08/14/24 12:30 Neut % (Auto) 80.1 % 08/14/24 12:30 Lymph % (Auto) 14.3 % 08/14/24 12:30 [place] % (Auto) 4.2 % 08/14/24 12:30 Eos % (Auto) 0.3 % 08/14/24 12:30 Baso % (Auto) 0.5 % 08/14/24 12:30 Neut # (Auto) 14.23 10^3/uL (1.8-7.7) H 08/14/24 12:30 Lymph # (Auto) 2.5 10^3/uL (0.8-4.8) 08/14/24 12:30 [place] # (Auto) 0.7 10^3/uL (0.2-0.9) 08/14/24 12:30 Eos # (Auto) 0.1 10^3/uL (0.0-0.8) 08/14/24 12:30 Baso # (Auto) 0.1 10^3/uL (0.0-0.1) 08/14/24 12:30 Nucleated RBC % (auto) 0 % 08/14/24 12: Nucleated RBCs # 0.0 /100WBC 08/14/24 12:30 D-Dimer 0.48 ug/mLFEU (0-0.59) 08/14/24 12:30 Specimen Type Arterial 08/14/24 14:31 Sample Site Radial, left 08/14/24 14:31 ABG pH 7.16 (7.35-7.45) L* 08/14/24 14:31 ABG pCO2 53.8 mmHg (35-45) H 08/14/24 14:31 ABG pO2 77.7 mmHg (80.0-100.0) L 08/14/24 14:31 ABG HCO3 19.0 mmol/L (22-26) L 08/14/24 14:31 ABG O2 Saturation 91.2 08/14/24 14:31 ABG Base Excess -9.3 mmol/L (-2.0-2.0) L 08/14/24 14:31 Satnam Test Pos 08/14/24 14:31 A-a O2 Gradient 0.8 mmHg (5-10) L 08/14/24 14:31 Hematocrit 25.8 % (37-47) L 08/14/24 14:31 Hgb O2 Saturation 88.9 % (95-100) L 08/14/24 14:31 Carboxyhemoglobin 1.1 %THgb (0.4-20.1) 08/14/24 14:31 Methemoglobin 1.4 % (0.4-1.5) 08/14/24 14:31 Total Hemoglobin 8.4 g/dL (12-16) L 08/14/24 14:31 Sodium 143.0 mmol/L (131-143) 08/14/24 14:31 Potassium 4.0 mmol/L (3.5-5.0) 08/14/24 14:31 Glucose 178.0 mg/dL (70-115) H 08/14/24 14:31 Ionized Calcium 1.2 mmol/L (1.1-1.4) 08/14/24 14:31 O2 Delivery Device Nc 08/14/24 14:31 O2 Liters/Min 6.0 % 08/14/24 14:31 Editor Newspaper ID [place] 08/14/24 14:31 Sodium 138 mmol/L (136-145) 08/14/24 12:30 Potassium 3.9 mmol/L (3.5-5.1) 08/14/24 12:30 Chloride 102 mmol/L (98-107) 08/14/24 12:30 Carbon Dioxide 20 mmol/L (22-29) L 08/14/24 12:30 Anion Gap 19.9 (5-19) H 08/14/24 12:30 BUN 27 mg/dL (8-23) H 08/14/24 12:30 Creatinine 1.9 mg/dL (0.5-0.9) H 08/14/24 12:30 GFR Calculation Not Reportable 08/14/24 12:30 Glucose 254 mg/dL (65-115) H 08/14/24 12:30 Estimat Average Glucose 120 08/14/24 12:30 Hemoglobin A1c 5.8 % (4.0-6.0) 08/14/24 12:30 Calculated Osmolality 300 mOsm/kg (285-295) H 08/14/24 12:30 Lactic Acid 4.9 mmol/L (0.5-2.2) H* 08/14/24 12:30 Lactic Acid (Sepsis) 3.5 mmol/L (0.5-2.2) H 08/14/24 15:13 Calcium 9.3 mg/dL (8.5-10.5) 08/14/24 12:30 Total Bilirubin 0.3 mg/dL (0.15-1.2) 08/14/24 12:30 AST 10 U/L (0-32) 08/14/24 12:30 ALT 6 U/L (0-33) 08/14/24 12:30 Alkaline Phosphatase 100 U/L (35-105) 08/14/24 12:30 Troponin T Baseline 24 ng/L (0-10) H 08/14/24 12:30 Troponin T 120 Minute Cancelled 08/14/24 14:15 Delta Troponin T Cancelled 08/14/24 14:15 Total Protein 7.4 g/dL (6.6-8.7) 08/14/24 12:30 Albumin 4.1 g/dL (3.5-5.2) 08/14/24 12:30 Globulin 3.3 g/dL (1.3-4.6) 08/14/24 12:30 Lipase 76 U/L (13-60) H 08/14/24 12:30 Procalcitonin 0.10 ng/mL (0-0.5) 08/14/24 12:30 Urine Color Yellow (Yellow) 08/14/24 15:15 Urine Appearance Turbid (CLEAR) A 08/14/24 15:15 Urine pH 5.0 (5-7) 08/14/24 15:15 Ur Specific [place] 1.020 (1.005-1.030) 08/14/24 15:15 Urine Protein 2+ (Negative) A 08/14/24 15:15 Urine Glucose (UA) Trace (Normal) H 08/14/24 15:15 Urine Ketones Trace (Negative) 08/14/24 15:15 Urine Blood Trace (Negative) A 08/14/24 15:15 Urine Nitrate Negative (Negative) 08/14/24 15:15 Urine Bilirubin Negative (Negative) 08/14/24 15:15 Urine Urobilinogen 1.0 mg/dL (Negative) 08/14/24 15:15 Ur Leukocyte Esterase 2+ (Negative) A 08/14/24 15:15 Urine RBC 21-50 /hpf (0-2) H 08/14/24 15:15 Urine WBC >100 /hpf (0-5) H 08/14/24 15:15 Ur Squamous Epith Cells 6-10 /hpf (0-5) 08/14/24 15:15 Amorphous Sediment Trace /hpf 08/14/24 15:15 Urine Bacteria Trace /hpf (NONE) 08/14/24 15:15 Hyaline Casts 88.53 /lpf 08/14/24 15:15 Ur Oval Fat Bodies 1+ /hpf 08/14/24 15:15 Salicylates < 0.3 mg/dL (3-10) L 08/14/24 12:30 Urine Opiates Screen Positive ng/mL (Negative) H 08/14/24 15:15 Acetaminophen < 5.0 ug/mL (10-30) L 08/14/24 12:30 Ur Barbiturates Screen Negative ng/mL (Negative) 08/14/24 15:15 Ur Phencyclidine Scrn Negative ng/mL (Negative) 08/14/24 15:15 Ur Amphetamines Screen Negative ng/mL (Negative) 08/14/24 15:15 U Benzodiazepines Scrn Negative ng/mL (Negative) 08/14/24 15:15 Urine Cocaine Screen Negative ng/mL (Negative) 08/14/24 15:15 U Marijuana (THC) Screen Negative ng/mL (Negative) 08/14/24 15:15 Ethyl Alcohol < 10 mg/dL (0-10) 08/14/24 12:30 All radiology interpretation(s) finalized by discharge Critical Care Time 2 Critical Care Time: Critical Care Time: Yes Total Critical Care Time: 45 Attestation: The high probability of a clinically significant, sudden or life threatening deterioration of the patient's cardiovascular and respiratory genitourinary system(s) required my full and direct attention, intervention and personal management. The critical care time is as shown. This time is in addition to time spent performing any reported procedures but includes the following: [x] Data and vital sign review and interpretation [x] Patient assessment, examination and intervention [x] Documentation [x] Medication orders and management Discharge Plan Discharge Patient Disposition: Admitted As Inpatient Admit Provider: Ralph Cantu Clinical Impression: Sepsis, GERARDO (acute kidney injury), Acute hypoxic on chronic hypercapnic respiratory failure Iron deficiency anemia Qualifiers: Iron deficiency anemia type: unspecified iron deficiency Qualified Code(s): D 50.9 - Iron deficiency anemia, unspecified UTI (urinary tract infection) Qualifiers: Urinary tract infection type: site unspecified Hematuria presence: with hematuria Qualified Code(s): N39.0 - Urinary tract infection, site not specified Condition: Stable Coding Level of Care Code ED Phot[employer] Printer for Veronica Perkins
--- NOTE | 2024-08-14 12:37 | CT_ITS ---
WS: [id number] CT ABDOMEN AND PELVIS NONCONTRAST HISTORY: Vomiting. General abdominal pain. TECHNIQUE: Imaging performed through the abdomen and pelvis. Coronal and sagittal reformats are submitted. All CT scans at [facility] use at least one of these dose optimization techniques: automated exposure control; mA and/or kV adjustment per patient size (includes targeted exams where dose is matched to clinical indication); or iterative reconstruction. DLP: 701.03 mGy.cm COMPARISON: 08/07/2022, 09/11/2022 Lower thorax: Dependent changes at the lung bases. Moderate cardiomegaly. Liver: Normal size liver. No mass or bile duct dilatation. Gallbladder: Normal gallbladder. No pericholecystic fluid or cholelithiasis. No gallbladder wall thickening. Pancreas: Normal size and attenuation. Normal pancreatic duct. No pancreatitis or mass. Spleen: Granulomata. Normal size. Adrenal glands: Normal. No mass. Right kidney: Low normal size kidney. No obstruction. Left kidney: Low normal size kidney with no obstruction. Subcentimeter cortical hypodensities stable since 09/11/2022 measuring 7 mm. Aorta: Mild atherosclerosis abdominal aorta with no aneurysm. Mildly ectatic atherosclerosis aorta. No free fluid, intraperitoneal air or significant lymphadenopathy. GI tract: Normal noncontrast imaging of the stomach, small bowel and colon. No obstruction or wall thickening. Normal appendix. Minimal sigmoid diverticulosis without acute diverticulitis. Abdominal wall: Small umbilical hernia contains fat only. Hernia measures 10 mm. Pelvis: Urinary bladder is not distended. No free fluid or adenopathy. RIGHT inguinal hernia contains fat only. Osseous structures: Moderate increase in thoracic kyphosis. Several vertebral body hemangiomas are identified. Dorsal column stimulator electrodes and wires also noted. CT/CT abdomen pelvis wo con [id number] IMPRESSION: 1. No acute abdominal or pelvic abnormalities identified. 2. Moderate cardiomegaly. 3. Ectatic abdominal aorta without aneurysmal dilatation. 4. No renal obstruction. 5. No GI tract obstruction or colitis.
[2024-08-14] MEDS: ondansetron 2 mg/ML SDV 2 mL 4 MG IVP (12:46)
[2024-08-14] MEDS: sodium chloride 0.9% 1,000 ML 999 ML IV ×2 (12:46→16:03)
[2024-08-14 12:54] LABS: Alanine Aminotransferase 6 U/L (0-33); Albumin Level 4.1 g/dL (3.5-5.2); Alkaline Phosphatase 100 U/L (35-105); Anion Gap 19.9 (5-19); Aspartate Amino Transferase 10 U/L (0-32); Blood Urea Nitrogen 27 mg/dL (8-23); Calcium 9.3 mg/dL (8.5-10.5); Carbon Dioxide 20 mmol/L (22-29); Chloride 102 mmol/L (98-107); Creatinine Clr Calc Pharmacy 22.7056; Globulin 3.3 g/dL (1.3-4.6); Glucose 254 mg/dL (65-115); Lipase 76 U/L (13-60); Osmolality Calculated 300 mOsm/kg (285-295); Potassium 3.9 mmol/L (3.5-5.1); Sodium 138 mmol/L (136-145); Total Bilirubin 0.3 mg/dL (0.15-1.2); Total Protein 7.4 g/dL (6.6-8.7)
[2024-08-14 13:21] LABS: Lactic Sepsis W/Reflex 4.9 mmol/L (0.5-2.2)
--- NOTE | 2024-08-14 13:41 | ECG_ITS ---
[facility] Test Date: 2024-08-14 Pat Name: Ayah Sanchez Department: Room: Gender: Female Grapple Operator: : 1945 Requested By: Solomon Camacho Order Number: [id number] Landon MD: Guicho Chavarria M.D. Measurements Intervals [place] Rate: 74 P: 0 MA: 0 QRS: 55 QRSD: 110 T: 0 QT: 420 QTc: 467 Interpretive Statements ATRIAL FIBRILLATION POSSIBLE LEFT VENTRICULAR HYPERTROPHY [VOLTAGE CRITERIA PLUS LAE OR QRS WIDENING] NONSPECIFIC ST & T-WAVE ABNORMALITY Compared to ECG 01/22/2024 11:35:04 Sinus bradycardia no longer present T-wave abnormality still present Electronically Signed On 08-14-2024 22:12:50 CDT by Guicho Chavarria M.D. [id number] [id number]
--- NOTE | 2024-08-14 13:43 | ECG_ITS ---
[facility] Test Date: 2024-08-14 Pat Name: Ayah Sanchez Department: Room: Gender: Female Podiatric Physician: : 1945 Requested By: Solomon Camacho Order Number: [id number] Landon MD: Guicho Chavarria M.D. Measurements Intervals [place] Rate: 76 P: 0 CA: 0 QRS: 58 QRSD: 110 T: 160 QT: 409 QTc: 463 Interpretive Statements ATRIAL FIBRILLATION POSSIBLE LEFT VENTRICULAR HYPERTROPHY [VOLTAGE CRITERIA PLUS LAE OR QRS WIDENING] NONSPECIFIC ST & T-WAVE ABNORMALITY Compared to ECG 01/22/2024 11:35:04 Sinus bradycardia no longer present T-wave abnormality still present Electronically Signed On 08-14-2024 21:42:01 CDT by Guicho Chavarria M.D. [id number]
[2024-08-14] MEDS: sodium chloride 0.9% 2,313.33 ML 2313.33 ML IV (13:47)
[2024-08-14] MEDS: cefTRIAXone 1,000 mg SDV 1000 MG IVP (13:50)
[2024-08-14 14:11] LABS: Troponin(5th) Baseline 24 ng/L (0-10)
--- NOTE | 2024-08-14 14:29 | PC.NURSE ---
Pt was given total 2313 ml fluids bolus for sepsis protocol, 1000ml initial bolus was part of the 2313 ml sepsis bolus order
--- NOTE | 2024-08-14 14:30 | PC.NURSE ---
Pt blood pressure continues to remain systolic 70s with map 59, provider ntfd, order for levo received
[2024-08-14 14:34] LABS: Reflex Lactate Order REFLEX LACTIC ORDERD
[2024-08-14] MEDS: norepinephrine 4 MG/250 ML BAG 30 MG IV (14:35)
[2024-08-14 14:42] LABS: ABG PCO2 53.8 mmHg (35-45); Alveolar-Arterial Oxygen Gradi 0.8 mmHg (5-10); Arterial Blood Gas Hematocrit 25.8 % (37-47); Base Excess ABG -9.3 mmol/L (-2.0-2.0); Blood Gas Allen Test Pos; Blood Gas Operator Identificat WALCI; Blood Gas Sample Site Radial, left; Blood Gas Sample Type Arterial; Carboxyhemoglobin 1.1 %THgb (0.4-20.1); HGB O2 Sat 88.9 % (95-100); Ionized Calcium Level - ABG 1.2 mmol/L (1.1-1.4); Methemoglobin 1.4 % (0.4-1.5); Oxygen Device NC; Oxygen Saturation ABG 91.2; PO2 ABG 77.7 mmHg (80.0-100.0); Total Hemoglobin 8.4 g/dL (12-16)
--- NOTE | 2024-08-14 14:42 | PC.NURSE ---
Pt o2 increased to 6L due to continued o2 sat dropping into low to mid 80s
[2024-08-14 14:43] LABS: ABG PH Result 7.16 (7.35-7.45)
[2024-08-14 14:47] LABS: D Dimer 0.48 ug/mLFEU (0-0.59)
--- NOTE | 2024-08-14 14:57 | PC.NURSE ---
Pt placed on bi pap, O2 increased to 97%
[2024-08-14 15:29] LABS: Bilirubin Urine Negative (Negative); Blood Urine Trace (Negative); Glucose Urine UA Trace (Normal); Ketones Urine Trace (Negative); Leukocyte Esterase Urine 2+ (Negative); Nitrate Urine Negative (Negative); Protein Urine 2+ (Negative); Urine Appearance Turbid (CLEAR); Urine Color Yellow (Yellow)
[2024-08-14 15:31] LABS: Add Urine Microscopic? YES; Bacteria Urine Trace /hpf; Hyaline Casts Urine 88.53 /lpf; RBC Urine 21-50 /hpf (0-2); WBC Urine >100 /hpf (0-5)
--- NOTE | 2024-08-14 15:37 | CTR_ITS ---
PROCEDURE INFORMATION: Exam: CT Chest With Contrast; Diagnostic Exam date and time: 08/14/2024 4:40 PM Age: 78 years old Clinical indication: Abdominal tenderness; Other: Acidosis, septic shock; Prior surgery; Surgery date: 6+ months; Surgery type: Insulin pump, appy, hysterectomy; Additional info: Acidosis. Septic shock, n/v TECHNIQUE: Imaging protocol: Diagnostic computed tomography of the chest with contrast. Radiation optimization: All CT scans at this facility use at least one of these dose optimization techniques: automated exposure control; mA and/or kV adjustment per patient size (includes targeted exams where dose is matched to clinical indication); or iterative reconstruction. Contrast material: OMNIPAQUE 350; Contrast volume: 100 ml; Contrast route: INTRAVENOUS (IV); COMPARISON: 1. CT chest wo con [id number] 03/28/2024 3:[address] abdomen pelvis wo con [id number] 08/07/2022 12:35 PM RADIATION DOSE METRICS: Total DLP (mGy-cm): 1176.69 FINDINGS: Lungs: Stable partially calcified medial left lower lobe pulmonary nodule. Increased bibasilar atelectasis/scar. No focal consolidation. Pleural spaces: Unremarkable. No pneumothorax. No pleural effusion. Heart: Moderate cardiomegaly. Coronary arteries: Coronary artery calcifications are present. Lymph nodes: Unremarkable. No enlarged lymph nodes. Vasculature: Aortic atherosclerotic disease is seen without evidence of aneurysm. Enlarged pulmonary trunk and main pulmonary arteries suggestive of pulmonary arterial hypertension. Bones/joints: Unremarkable. No acute fracture. Soft tissues: Unremarkable. PROCEDURE INFORMATION: Exam: CT Abdomen And Pelvis With Contrast Exam date and time: 08/14/2024 4:40 PM Age: 78 years old Clinical indication: Abdominal tenderness; Other: Acidosis, septic shock; Prior surgery; Surgery date: 6+ months; Surgery type: Insulin pump, appy, hysterectomy; Additional info: Acidosis. Septic shock, n/v TECHNIQUE: Imaging protocol: Computed tomography of the abdomen and pelvis with contrast. Radiation optimization: All CT scans at this facility use at least one of these dose optimization techniques: automated exposure control; mA and/or kV adjustment per patient size (includes targeted exams where dose is matched to clinical indication); or iterative reconstruction. Contrast material: OMNIPAQUE 350; Contrast volume: 100 ml; Contrast route: INTRAVENOUS (IV); COMPARISON: CT abdomen pelvis wo con [id number] 08/14/2024 1:19 PM RADIATION DOSE METRICS: Total DLP (mGy-cm): 1176.69 FINDINGS: Tubes, catheters and devices: Intrathecal pump device again noted. Liver: Normal. No mass. Gallbladder and biliary ducts: Normal. No calcified stones. No ductal dilation. Pancreas: Normal. No ductal dilation. Spleen: Normal. No splenomegaly. Adrenal glands: Normal. No mass. Kidneys and ureters: Nonspecific low-density foci of the left kidney statistically favor benign cysts, no follow-up imaging is recommended, as large as 8 mm. Stomach and bowel: Colonic diverticulosis is present without diverticulitis. Bowel has normal caliber. Appendix: No evidence of appendicitis. Intraperitoneal space: Unremarkable. No free air. No significant fluid collection. Vasculature: Aortoiliac atherosclerotic disease. 2.5 cm infrarenal abdominal aortic aneurysm. Lymph nodes: Unremarkable. No enlarged lymph nodes. Urinary bladder: Urinary bladder is decompressed by a Marinelli catheter. Reproductive: Uterus is surgically absent. No evidence of adnexal mass. Bones/joints: Unremarkable. No acute fracture. Soft tissues: Unremarkable. CT/CT chest abdpel w/*[id number] IMPRESSION: 1. Moderate cardiomegaly. 2. No evidence of acute intrathoracic process. 3. Enlarged pulmonary trunk and main pulmonary arteries suggestive of pulmonary arterial hypertension. IMPRESSION: 1. No evidence of acute abdominal or pelvic process. 2. 2.5 cm infrarenal abdominal aortic aneurysm. COMMENTS: Consistent with the [employer] [employer]'s Incidental Findings Committee white paper (J Am Bebe Radiol 2018): Any incidental renal lesion less than 1 cm or classified as too small to characterize, or any incidental cystic renal lesion characterized as simple-appearing, is likely benign. No follow-up imaging is recommended for these lesions per consensus recommendations based on imaging criteria.
[2024-08-14 15:40] LABS: Lactic Acid level (Lactate) 3.5 mmol/L (0.5-2.2)
[2024-08-14 15:50] LABS: Amphetamines Screen Urine Negative (Negative); Barbiturates Screen Urine Negative (Negative); Benzodiazepines Screen Urine Negative (Negative); Cocaine Screen Urine Negative (Negative); Opiate Screen Urine Positive (Negative); PCP Screen Urine Negative (Negative); THC Screen Urine Negative (Negative)
[2024-08-14 15:57] LABS: ABG PCO2 56.1 mmHg (35-45); Alveolar-Arterial Oxygen Gradi 16.6 mmHg (5-10); Arterial Blood Gas Hematocrit 27.8 % (37-47); Base Excess ABG -8.9 mmol/L (-2.0-2.0); Blood Gas Allen Test Pos; Blood Gas Operator Identificat WALCI; Blood Gas Sample Site Radial, left; Blood Gas Sample Type Arterial; Blood Gas Tidal Volume 0.46; Carboxyhemoglobin 0.8 %THgb (0.4-20.1); HCO3 ABG 19.7 mmol/L (22-26); HGB O2 Sat 91.8 % (95-100); Ionized Calcium Level - ABG 1.2 mmol/L (1.1-1.4); Methemoglobin 1.7 % (0.4-1.5); Oxygen Device BIPAP; Oxygen Saturation ABG 94.2; PO2 ABG 89.2 mmHg (80.0-100.0); PO2 FiO2 Ratio Arterial Blood 223; Potassium Level - ABG 4.5 mmol/L (3.5-5.0); Total Hemoglobin 9.1 g/dL (12-16)
[2024-08-14 15:58] LABS: ABG PH Result 7.15 (7.35-7.45)
[2024-08-14 16:03] LABS: Acetaminophen < 5.0 ug/mL (10-30); Alcohol Level < 10 mg/dL (0-10); Salicylate < 0.3 mg/dL (3-10)
[2024-08-14] MEDS: piperacillin-tazobactam 3.375 GM in sodium chloride 0.9% (plus) 50 ML IV ×2 (16:03→23:03)
[2024-08-14 16:38] LABS: UA Slide Review UA Slide Review Perf
[2024-08-14 16:39] LABS: Add Urine Culture? Yes
[2024-08-14 16:40] LABS: Amorphous Sediment Urine TRACE /hpf; Oval Fat Bodies Urine 1+ /hpf
[2024-08-14] MEDS: iohexol 350 mg/mL 500 mL Btl (per mL) IV (16:44)
--- NOTE | 2024-08-14 16:46 | PM.HP ---
Providers/Chief Complaint Admitting Physician: Ralph Cantu MD Primary Care Provider: Juan Carlos Sherman MD Chief Complaint: vomitting History of Present Illness Ayah Sanchez is a 78 year old female with past medical history of CAD, post PCI to LAD and ostial RCA D, COPD chronically on 2 L of oxygen supplementation, hypertension, possibly type 2 diabetes mellitus as per the chart though not on any antidiabetic medications, chronic iron deficiency anemia, carotid artery disease presents to the ER today because of ongoing nausea and vomiting which started acutely today morning at 8 AM. Patient has been having dysuria with burning micturition for over 3 to 4 weeks. Denies any abdominal pain but complains of diarrhea occasionally as well. Denies any bleeding. Patient states she had multiple bilious vomiting today. Denies any bleeding or hematemesis. When present to the ER she developed hypotension requiring Levophed. Currently on 8 mics. ABG shown acidosis with pH of 7.2 hence she was placed on BiPAP with concerns for hypercapnic respiratory failure. Currently awake and alert without any distress. When taken off BiPAP on room air saturating down to low 70s requiring 4 L to maintain saturation over 88%. Review of Systems General: Reports: 10 or more systems reviewed and unremarkable except in HPI and below Const: Denies: fever(s), chills, body aches, change in appetite, change in weight, malaise, night sweats, diaphoresis, change in sleep pattern, daytime sleepiness or snoring Eyes: Denies: change in vision, blurry vision, photophobia, eye discomfort or eye discharge ENMT: Denies: throat pain, enlarged tonsils, hoarseness, mouth pain, oral sores, dry mouth, tinnitus, nasal congestion or post nasal drip Card: Denies: chest pain, palpitations, irregular heart rhythm, edema, swelling of feet/ankles, lightheadedness, syncope, pre-syncope, dyspnea on exertion, orthopnea, leg pain with exertion or acrocyanosis Resp: Denies: dyspnea, productive cough, non-productive cough, wheezing, stridor, pain on inspiration, change in phlegm color, hemoptysis or chest congestion GI: Denies: abdominal pain, nausea, vomiting, hematemesis, coffee ground emesis, dysphagia, heartburn, diarrhea, constipation, bloating, GI cramping, change in bowel habits, pain on defecation, hematochezia or melena : Denies: flank pain, dysuria, urinary frequency, urinary urgency, urinary hesitancy, nocturia or hematuria Musc: Denies: neck pain, back pain, extremity pain, joint pain, joint swelling, joint redness, joint stiffness or limited range of motion Neuro: Denies: headache(s), numbness in extremities, weakness in extremities, sensory changes, lack of coordination, difficulty walking, frequent falls, dizziness, vertigo, confusion, Slurred speech present, difficulty communicating thoughts or seizure-like activity Psych: Denies: anxiety, depression, mood swings, panic attacks, hopelessness or irritability Endo: Denies: polyuria, polydipsia, tired all the time, cold intolerance, excessive sweating, flushing or heat intolerance Roney/Lymph: Denies: easy bruising or easy bleeding All/Imm: Denies: tongue swelling, facial swelling or acute wheezing Medications/Allergies Home Medications ?Medication ?Instructions ?Recorded ?Confirmed ?Last Taken ?Type leg brace (Ankle Brace) #1 ea 11/02/23 08/14/24 Unknown Rx albuterol sulfate 2.5 mg/3 mL 2.5 mg (3 mL) inhalation QID PRN 11/15/23 08/14/24 Unknown Rx (0.083 %) solution for nebulization shortness of breath or wheezing #75 mL nitroglycerin 0.4 mg sublingual See Rx Instructions .Route 01/11/24 08/14/24 Unknown Rx tablet .COMPLEX #25 tabs losartan 50 mg tablet 50 mg PO DAILY #90 tabs 04/04/24 08/14/24 08/13/24 Rx ascorbate calcium (vitamin C) 500 500 mg PO DAILY #60 tabs 07/02/24 08/14/24 08/13/24 Rx mg tablet fluticasone propionate 50 2 spray intranasal DAILY #16 grams 07/02/24 08/14/24 08/13/24 Rx mcg/actuation nasal spray,suspension (Flonase Allergy Relief) methenamine hippurate 1 gram tablet 1 g PO BID #60 tabs 07/02/24 08/14/24 Unknown Rx ferrous sulfate 325 mg (65 mg 325 mg PO .q48 3 months #45 tabs 07/03/24 08/14/24 08/13/24 Rx iron) tablet (Feosol) metoprolol tartrate 25 mg tablet See Rx Instructions .Route 07/08/24 08/14/24 08/13/24 Rx .COMPLEX #180 tabs cetirizine 10 mg tablet 10 mg PO DAILY PRN allergy symtoms 07/19/24 08/14/24 08/13/24 Rx #90 tabs Ventolin HFA 90 mcg/actuation 2 puff inhalation Q4H PRN 08/06/24 08/14/24 Unknown Rx aerosol inhaler (albuterol sulfate) shortness of breath or wheezing #18 grams amlodipine 10 mg tablet See Rx Instructions .Route 08/06/24 08/14/24 08/13/24 Rx .COMPLEX #90 tabs clopidogrel 75 mg tablet See Rx Instructions .Route 08/06/24 08/14/24 08/13/24 Rx .COMPLEX #90 tabs pantoprazole 40 mg tablet,delayed 40 mg PO BID #180 tabs 08/06/24 08/14/24 08/13/24 Rx release apixaban 2.5 mg tablet (Eliquis) 2.5 mg PO BID 08/14/24 08/14/24 08/13/24 History potassium chloride 10 mEq 10 meq PO DAILY 08/14/24 08/14/24 08/13/24 History capsule,extended release Allergies Allergy/AdvReac Type Severity Reaction Status Date / Time adhesive tape Allergy Mild ALGY-Rash Verified 07/02/24 11:08 aspirin Allergy Unknown unknown Verified 07/02/24 11:08 Sulfa (Sulfonamide Allergy Unknown unknown Verified 07/02/24 11:08 Antibiotics) PFSH Acute PFSH: Medical History Moderate major depression Arthritis of both hands Coronary artery disease Leukocytosis NSTEMI (non-ST elevated myocardial infarction) Anemia Chest pain AVM (arteriovenous malformation) HTN (hypertension) Dark stools Pulmonary embolism COPD (chronic obstructive pulmonary disease) Hiatal hernia Diverticulosis Colon polyps Presence of intrathecal pump Bilateral carotid artery stenosis Hyperlipidemia associated with type 2 diabetes mellitus Ventricular hypertrophy Surgical History H/O: hysterectomy H/O cataract extraction Hx of appendectomy Family History Mother CAD (coronary artery disease), Onset Age: 70 Cancer Dementia Sister Diabetes Denies family history of Clotting disorder Chronic kidney disease (CKD) Suicide Anesthesia complication Bleeding disorder Lung disease Stroke Social History Smoking and tobacco/nicotine status: former use of tobacco/nicotine Quit status (tobacco/nicotine): has quit using Year quit tobacco: 2022 Former quit date comment: 1.5 ppd X 50 Alcohol intake: never Substance/Drug Use: never Female Reproductive History: Spontaneous abortions: No Vitals/I&O/Wt Last Vital Signs Pulse 77 08/14/24 16:19 Resp 16 08/14/24 16:19 BP 119/67 08/14/24 16:19 Pulse Ox 97 08/14/24 16:19 O2 Del Method BiPAP 08/14/24 14:58 O2 Flow Rate 6 08/14/24 14:43 FiO2 40 08/14/24 16:16 08/14/24 08/14/24 08/14/24 06:59 14:59 22:59 Intake Total 3313.33 / 3313.33 Balance 3313.33 / 3313.33 Weight last 48 hrs Weight 77.111 kg Physical Exam Narrative: General: No acute distress, AO x3, pallor present, dehydrated HEENT: PERRLA, pupils bilaterally equal and reactive Chest: Bilateral bronchial breath sounds all over lung rai with occasional rhonchi CVS: S1-S2 regular, no murmurs, no tachycardia, no gallops, no rubs Abdomen: Soft, nontender, no organomegaly, bowel sounds present Neuro: No focal deficits, no facial deformity, AO x3, power 5/5 in all limbs Urinary Catheter Management: Marinelli: Cath Placed During This Visit: yes Urinary Catheter Date of Insertion: 08/14/24 Urinary Catheter Time of Insertion: 15:17 Data 08/14/24 12:30 08/14/24 16:19 Micro: Microbiology 08/14/24 12:55 Blood Culture - Preliminary Blood SPECIMEN COLLECTED 08/14/24 12:50 Blood Culture - Preliminary Blood SPECIMEN COLLECTED A&P Assessment and plan (1) Septic shock: Keep mean arterial pressure 65. Wean Levophed accordingly. IV fluid with bicarb drip at 100 cc/h. Check blood culture, trend procalcitonin, check MRSA swab, urine culture. Empirically start patient on IV vancomycin and Zosyn. De-escalate as per culture sensitivities. (2) Hypercapnic respiratory failure: With pH of 7.1. pCO2 of 55. History of COPD. Oxygen supplementation given saturation over 88%. Pulmicort twice daily, DuoNeb every 6 hour. BiPAP nightly or as needed. Repeat ABG in AM. (3) Respiratory acidosis with metabolic acidosis: pH 7.1. Next metabolic and respiratory in setting of hypercapnia and elevated lactate. Unlikely DKA. Check ketones. As pH is less than 7.2 for now we will start on bicarb drip. Repeat ABG in AM. Repeat lactate level in AM. (4) GERARDO (acute kidney injury): Most likely in setting of septic shock. Baseline creatinine 1-1.4. Medical reconciliation done for nephrotoxic drugs. Monitor BMP daily. CT on pelvis negative for obstructive nephropathy. (5) UTI (urinary tract infection): (6) Lactic acid acidosis: (7) HTN (hypertension): Goal blood pressure less than 140/90 mmHg with mean over 65. Currently in shock. Hold off on antihypertensive. Takes metoprolol 25 mg along with losartan 50 mg daily at home. (8) Coronary artery disease: History of CAD with PCI. Check A1c, lipid panel. Continue with home dose of Plavix, statin. Troponin cycle appreciated with delta negative in 2 hours. Cardiogram in 2023 showed an EF of 60 to 65% with grade 1 diastolic dysfunction, dilated LA, mild MR. Repeat echocardiogram (9) Type 2 diabetes mellitus: Check A1c. Insulin sliding scale low-dose protocol. (10) History of pulmonary embolism: Currently normal D-dimer. No concerns for PE. Switch from home dose of Eliquis 2.5 mg twice daily to Lovenox 1 mg/kg body weight daily as per creatinine clearance (11) Iron deficiency anemia: Baseline hemoglobin seems to be in mid nines. Even down to 7.4 in October 2023. Hemoglobin stable. Continue with iron supplementation. Monitor hemoglobin daily after repeating at around 10 PM. Target hemoglobin over 8 given history of CAD. Plan Full code Cardiac diet Protonix will be sufficient for PUD prophylaxis Full dose Lovenox with sufficient for DVT prophylaxis PDMP PDMP Reviewed: Not Reviewed Attestations Medical Necessity Statement*: Admission, than 2 midnights for management of septic shock, respiratory and metabolic acidosis with concerns for UTI in a patient with history of CAD Critical Care Time: The high probability of a clinically significant, sudden or life threatening deterioration of the patient's [cardiac, pulmonary, renal, metabolic] system(s) required my full and direct attention, intervention and personal management. The critical care time is as shown. This time is in addition to time spent performing any reported procedures but includes the following: [x] Data and vital sign review and interpretation [x] Patient assessment, examination and intervention [x] Documentation [x] Medication orders and management Critical Care Time (min): 70 Coding Level of Care Code Critical Care >/= 30 minutes Critical care time (in minutes): 70 The high probability of a clinically significant, sudden or life threatening deterioration, as referenced in this documentation, required my full and direct attention, intervention and personal management. The critical care time shown is in addition to time spent performing any reported separately billable procedures and includes the following: [x] Data and vital sign review and interpretation [x] Patient assessment, examination and intervention [x] Medication orders and management [x] Patient/Family updates as able [x] Care Coordination and Documentation. Other Coding Information This patient has a high probability of clinically significant, sudden or life threatening deterioration of the patient's (neurological/pulmonary/cardiac/renal/ID/endocrine) systems required my full, direct attention, the highest level of physician preparedness for urgent intervention and personal management. I managed/supervised life or organ supporting interventions that required frequent physician assessment. I devoted my full attention in the ICU to the direct care of this patient for the period of time indicated above. Time I spent with family or surrogate(s) is included only if the patient was incapable of providing necessary information or participating in decision making. This time includes the following services provided: Telemetry review Nonmechanical ventilation Hemodynamic interpretation, assessment and management Review and interpretation of CXR Review and interpretation of lab values Review and interpretation of microbiologic data and culture results Review of medications and administration Review and interpretation of Nutrition requirements and management Discussion of management with other consultants and services Clinical update to family members Diagnoses Septic shock A41.9; R65.21 Hypercapnic respiratory failure J96.92 Respiratory acidosis with metabolic acidosis E87.4 GERARDO (acute kidney injury) N17.9 Urinary tract infection with hematuria, site unspecified N39.0; R31.9 Hematuria presence: with hematuria Urinary tract infection type: site unspecified Lactic acid acidosis E87.20 Primary hypertension I10 Hypertension type: primary hypertension Coronary artery disease involving [place] coronary artery of [place] heart without angina pectoris I25.10 Associated angina: without angina Coronary Disease-Associated Artery/Lesion type: [place] artery [place] vs. transplanted heart: [place] heart Type 2 diabetes mellitus E11.9 History of pulmonary embolism Z86.711 Iron deficiency anemia, unspecified iron deficiency anemia type D50.9 Iron deficiency anemia type: unspecified iron deficiency
[2024-08-14 16:55] LABS: Troponin 5 2HR 26.22 ng/L (0-10); Troponin 5 2HR Delta 2.22 ABS# (0-10)
--- NOTE | 2024-08-14 17:26 | PHA.VACGOAL ---
Vancomycin Goal - Goal Vancomycin Goal:: 15-20 mg/L Vancomycin Indication:: Other - Therapy Day of therpy:: Day []of [] . Actual body weight (kg): 170 lb - Data Labs: WBC 17.75 10^3/uL (3.29-11.43) H 08/14/24 12:30 RBC 3.55 10^6/uL (3.85-5.65) L 08/14/24 12:30 Hgb 9.30 g/dL (11.27-16.99) L 08/14/24 12:30 Hct 31.1 % (36-47) L 08/14/24 12:30 MCV 87.6 fl (85-98) 08/14/24 12:30 MCH 26.2 pg (27-33) L 08/14/24 12:30 MCHC 29.9 g/dL (30-55) L 08/14/24 12:30 RDW 13.4 % (12.1-15.1) 08/14/24 12:30 Sodium 138 mmol/L (136-145) 08/14/24 12:30 Potassium 3.9 mmol/L (3.5-5.1) 08/14/24 12:30 Chloride 102 mmol/L (98-107) 08/14/24 12:30 Carbon Dioxide 20 mmol/L (22-29) L 08/14/24 12:30 Anion Gap 19.9 (5-19) H 08/14/24 12:30 BUN 27 mg/dL (8-23) H 08/14/24 12:30 Creatinine 1.9 mg/dL (0.5-0.9) H 08/14/24 12:30 GFR Calculation Not Reportable 08/14/24 12:30 Regimen:: 2000 MG NOW AND CHECK LEVEL IN 24 HOURS
[2024-08-14 17:33] LABS: Anion Gap 21.4 (5-19); Blood Urea Nitrogen 27 mg/dL (8-23); Calcium 8.4 mg/dL (8.5-10.5); Carbon Dioxide 15 mmol/L (22-29); Chloride 110 mmol/L (98-107); Glucose 167 mg/dL (65-115); Iron 12 ug/dL (37-145); Osmolality Calculated 303 mOsm/kg (285-295); Percent Saturation 3.2 % (20-50); Potassium 4.4 mmol/L (3.5-5.1); Sodium 142 mmol/L (136-145); Total Iron Binding Capacity 366 mcg/dl; Unsaturated Iron Binding 354 ug/dL (112-347)
[2024-08-14 17:39] LABS: Ketone (Acetest) Serum Negative (Negative)
[2024-08-14] MEDS: pantoprazole 40 mg SDV IVP (17:43)
[2024-08-14] MEDS: vancomycin 2,000 MG/400 ML PIGGYBACK 200 MG IV (17:44)
[2024-08-14] MEDS: sodium bicarbonate 150 MEQ in dextrose 5% 1,000 ML 100 MEQ IV (17:44)
--- NOTE | 2024-08-14 17:44 | ECG_ITS ---
[facility]: 2024[facility]08[facility]14 Pat Name: Ayah Sanchez Department: Room: [facility]08 Gender: Female Supervisor Wound: : 1945 Requested By: Solomon Camacho Order Number: [id number] Landon MD: Guicho Chavarria M.D. Measurements Intervals [place] Rate: 75 P: 0 UT: 0 QRS: 69 QRSD: 104 T: 121 QT: 396 QTc: 444 Interpretive Statements ATRIAL FIBRILLATION POSSIBLE LEFT VENTRICULAR HYPERTROPHY [VOLTAGE CRITERIA PLUS LAE OR QRS WIDENING] NONSPECIFIC ST & T-WAVE ABNORMALITY Compared to ECG 08/14/2024 13:41:58 No significant changes Electronically Signed On 08-14-2024 22:11:31 CDT by Guicho Chavarria M.D. [email or web address]
[2024-08-14 18:05] LABS: Vitamin B12 474 pg/mL (232-1245)
--- NOTE | 2024-08-14 18:06 | USCV_ITS ---
Ayah Sanchez Age: 78 Gender: F : 1945 Exam Date: 08/14/2024 19:23 Ordering Phys: Ralph Cantu MD Technologist: FRANTZ [place] [facility] [place]: shock. history CAD s/p stenting, chronic COPD O2- dependent, HTN, chronic anemia, DM2 BP: 110 / 61 HR: 50 Rhythm: Sinus Technical Quality: Adequate MEASUREMENTS (Male / Female) Normal Values 2D ECHO LV Diastolic Diameter PLAX 4.3 cm 4.2 - 5.9 / 3.9 - 5.3 cm IVS Diastolic Thickness 1.8 cm 0.6 - 1.0 / 0.6 - 0.9 cm IVS Systolic Thickness 2.6 cm LVPW Diastolic Thickness 1.4 cm 0.6 - 1.0 / 0.6 - 0.9 cm LVPW Systolic Thickness 1.9 cm LVOT Diameter 1.9 cm LV Ejection Fraction 2D Teich 62.6 % LV Ejection Fraction MOD 4C 55.2 % LV Ejection Fraction MOD 2C 52.0 % LV Ejection Fraction 2C AL 52.6 % LA Diameter 4.8 cm Aorta at Sinotubular Diameter 2.7 cm IVC Diameter 2.3 cm M-MODE LA Ao Ratio MM 1.9 AV Cusp Separation MM 2.1 cm DOPPLER AV Peak Velocity 185.0 cm/s LVOT Peak Velocity 129.0 cm/s AV Area Cont Eq vti 2.2 cm squared AV Area Cont Eq pk 2.0 cm squared MV Peak Velocity 97.0 cm/s MV Area PHT 4.2 cm squared Mitral E to A Ratio 1.9 TV Peak Velocity 310.3 cm/s TR Peak Velocity 319.0 cm/s TR Peak Gradient 40.7 mmHg TV Peak E Velocity 53.0 cm/s PV Peak Velocity 134.0 cm/s FINDINGS Left Ventricle Left ventricle is normal in size. LV systolic function is normal with EF of 55-60%. No regional wall motion abnormalities are seen. Moderate left ventricular hypertrophy. Grade III diastolic dysfunction Right Ventricle Normal in size and function Right Atrium Normal in size Left Atrium Normal in size Mitral Valve Mild mitral annular calcification. Trace mitral regurgitation. Aortic Valve Aortic valve is thickened. No significant stenosis or regurgitation. Tricuspid Valve Mild tricuspid regurgitation. RVSP is 40-45 mmHg. This is consistent with mild pulmonary hypertension. Pulmonic Valve Mild pulmonic regurgitation. Pericardium Normal Aorta Normal in size IVC Dilated CONCLUSIONS LV systolic function is normal with EF of 55-60% Moderate left ventricular hypertrophy Grade 3 diastolic dysfunction Trace mitral regurgitation Mild tricuspid regurgitation Mild pulmonary hypertension Mild pulmonic regurgitation IVC is dilated Wojciech Siddiqui MD (Electronically Signed) Final Date: 16 August 2024 09:43 S
[2024-08-14] MEDS: enoxaparin 80 mg/0.8 mL Syringe SUBCUT (18:16)
[2024-08-14] MEDS: methylPREDNISolone sod succ 40 mg/mL INJ IVP (18:32)
--- NOTE | 2024-08-14 18:41 | ECG_ITS ---
[facility] Date: 2024-08-14 Pat Name: Ayah Sanchez Department: Room: [facility]08 Gender: Female Manager Social Services: : 1945 Requested By: Ralph Cantu Order Number: [id number] Landon MD: Guicho Chavarria M.D. Measurements Intervals [place] Rate: 59 P: 0 NM: 0 QRS: 67 QRSD: 102 T: 90 QT: 414 QTc: 413 Interpretive Statements Multifocal atrial rhythm POSSIBLE LEFT VENTRICULAR HYPERTROPHY [VOLTAGE CRITERIA PLUS LAE OR QRS WIDENING] NONSPECIFIC ST & T-WAVE ABNORMALITY Compared to ECG 08/14/2024 17:44:30 No significant changes Electronically Signed On 08-14-2024 21:39:05 CDT by Guicho Chavarria M.D. [id number]
--- NOTE | 2024-08-14 19:04 | PC.NURSE ---
Pt was admitted to ICU this shift on bipap and A&O x 4. Abd is round and firm with no complaints of pain. Patient did have one episode of bradycardia in the 20's on monitor but quickly recovered to the 60's. Patient stated she felt like she passed out. Pads placed, EKG obtained. aware and new orders placed.
[2024-08-14 19:22] LABS: Troponin 5 6HR 40.02 ng/L (0-10)
[2024-08-14 19:24] LABS: Troponin 5 6HR Delta 16.02 ng/L (0-12)
[2024-08-14] MEDS: ipratropium-albuterol 3 mL Neb INHALATION (19:24)
[2024-08-14] MEDS: budesonide 0.5 mg/2 mL Neb INHALATION (19:24)
[2024-08-14 20:16] LABS: MRSA PCR OZH (swab) NOT DETECTED (Not Detecte)
[2024-08-14 21:03] LABS: Estmated Average Glucose 120; Hemoglobin A1C 5.8 % (4.0-6.0)
[2024-08-14] MEDS: levothyroxine 100 mcg SDV IVP (21:05)
[2024-08-14] MEDS: lactated ringers 1,000 ML 999 ML IV (21:06)
[2024-08-14 22:01] LABS: ABG PCO2 50.8 mmHg (35-45); ABG PH Result 7.21 (7.35-7.45); Alveolar-Arterial Oxygen Gradi 18.4 mmHg (5-10); Arterial Blood Gas Hematocrit 25.6 % (37-47); Base Excess ABG -7.4 mmol/L (-2.0-2.0); Blood Gas Allen Test Pos; Blood Gas Sample Site Radial, left; Blood Gas Sample Type Arterial; HCO3 ABG 20.2 mmol/L (22-26); HGB O2 Sat 92.2 % (95-100); Ionized Calcium Level - ABG 1.1 mmol/L (1.1-1.4); Methemoglobin 1.4 % (0.4-1.5); Oxygen Device BIPAP; Oxygen Saturation ABG 94.4; PO2 ABG 81.8 mmHg (80.0-100.0); PO2 FiO2 Ratio Arterial Blood 204; Potassium Level - ABG 5.1 mmol/L (3.5-5.0); Total Hemoglobin 8.4 g/dL (12-16)
[2024-08-14] MEDS: norepinephrine 4 MG/250 ML BAG 33.75 MG IV (22:58)
[2024-08-14 23:13] LABS: Hematocrit 28.7 % (36-47)
[2024-08-15] VITALS (107 sets, daily range): BP systolic 75–139; BP diastolic 37–64; PULSE 50–82; RESP 13–27; TEMP 36.1–37.1; O2SAT 78–100
[2024-08-15] MEDS: FUROsemide 10 mg/mL SDV 2mL 20 MG IVP ×3 (02:27→21:59)
[2024-08-15] MEDS: methylPREDNISolone sod succ 40 mg/mL INJ IVP ×3 (02:27→18:35)
[2024-08-15] MEDS: lactated ringers 1,000 ML 999 ML IV ×2 (02:28→03:26)
[2024-08-15] MEDS: ipratropium-albuterol 3 mL Neb INHALATION ×4 (02:45→20:03)
[2024-08-15] MEDS: pantoprazole 40 mg SDV IVP ×2 (03:55→16:28)
[2024-08-15 04:07] LABS: ABG PCO2 42.9 mmHg (35-45); ABG PH Result 7.35 (7.35-7.45); Alveolar-Arterial Oxygen Gradi 14.9 mmHg (5-10); Arterial Blood Gas Hematocrit 23.8 % (37-47); Base Excess ABG -2.1 mmol/L (-2.0-2.0); Blood Gas Allen Test Pos; Blood Gas Sample Site Radial, right; Blood Gas Sample Type Arterial; HCO3 ABG 23.4 mmol/L (22-26); HGB O2 Sat 94.4 % (95-100); Ionized Calcium Level - ABG 1.1 mmol/L (1.1-1.4); Methemoglobin 1.4 % (0.4-1.5); Oxygen Device BIPAP; Oxygen Saturation ABG 96.7; PO2 ABG 81.2 mmHg (80.0-100.0); PO2 FiO2 Ratio Arterial Blood 232; Potassium Level - ABG 4.2 mmol/L (3.5-5.0); Total Hemoglobin 7.8 g/dL (12-16)
[2024-08-15 04:26] LABS: Basophils % 0.1 %; Lymphocytes # 0.9 10^3/uL (0.8-4.8); Lymphocytes % 8.3 %; Mean Corpuscular HGB Conc 30.4 g/dL (30-55); Mean Corpuscular Hemoglobin 26.9 pg (27-33); Mean Corpuscular Volume 88.6 fl (85-98); Mean Platelet Volume 10.5 fL (7.4-10.4); Monocytes # 0.2 10^3/uL (0.2-0.9); Monocytes % 1.7 %; Nucleated Red Blood Cells % 0 %; Platelet Count 312 10^3/cmm (157-399); Red Blood Count 2.71 10^6/uL (3.85-5.65); Red Cell Distribution Width 13.6 % (12.1-15.1); White Blood Count 10.89 10^3/uL (3.29-11.43)
[2024-08-15 04:41] LABS: Alanine Aminotransferase 9 U/L (0-33); Albumin Level 2.9 g/dL (3.5-5.2); Alkaline Phosphatase 79 U/L (35-105); Anion Gap 19.6 (5-19); Aspartate Amino Transferase 18 U/L (0-32); Blood Urea Nitrogen 22 mg/dL (8-23); Calcium 7.7 mg/dL (8.5-10.5); Carbon Dioxide 23 mmol/L (22-29); Chloride 102 mmol/L (98-107); Globulin 2.9 g/dL (1.3-4.6); Glucose 188 mg/dL (65-115); Magnesium 1.6 mg/dL (1.7-2.3); Osmolality Calculated 298 mOsm/kg (285-295); Phosphorus 3.9 mg/dL (2.5-4.5); Potassium 4.6 mmol/L (3.5-5.1); Sodium 140 mmol/L (136-145); Total Bilirubin 0.2 mg/dL (0.15-1.2); Total Protein 5.8 g/dL (6.6-8.7)
[2024-08-15 04:47] LABS: Chol HDL Ratio 3.95 mg/dL (0.0-4.40); Cholesterol 146 mg/dL (0-200); HDL Cholesterol 37 mg/dL (60-100); LDL Cholesterol Calculated 93 mg/dL (50-129); LDL HDL Ratio 2.51 RATIO (0.00-3.22); Triglycerides 78 mg/dL (0-150)
[2024-08-15 04:50] LABS: Procalcitonin 0.32 ng/mL (0-0.5)
[2024-08-15] MEDS: levothyroxine 100 mcg Tablet PO (05:26)
[2024-08-15] MEDS: sodium bicarbonate 150 MEQ in dextrose 5% 1,000 ML 75 MEQ IV (06:18)
[2024-08-15] MEDS: iron sucrose 200 MG in sodium chloride 0.9% (100 ml) 100 ML 220 MG IV (06:46)
[2024-08-15] MEDS: sodium chloride 0.9% 1,000 ML 75 ML IV (07:50)
[2024-08-15] MEDS: piperacillin-tazobactam 3.375 GM in sodium chloride 0.9% (plus) 50 ML IV ×3 (08:04→23:40)
[2024-08-15] MEDS: clopidogrel 75 mg Tablet PO (08:14)
[2024-08-15] MEDS: budesonide 0.5 mg/2 mL Neb INHALATION ×2 (09:15→20:03)
[2024-08-15 09:37] LABS: T3 Free 1.7 PG/ML (2.0-4.4)
--- NOTE | 2024-08-15 10:25 | PM.PN ---
Subjective Subjective: No acute events overnight. Patient has remained hemodynamically stable and afebrile. Blood pressure is better controlled. Levophed was weaned off overnight. Vitals/I&O/Wt Last Vital Signs Temp 97.9 F 08/15/24 08:30 Pulse 67 08/15/24 09:37 Resp 16 08/15/24 09:17 BP 110/50 08/15/24 08:45 Pulse Ox 95 08/15/24 09:17 O2 Del Method Nasal Cannula 08/15/24 09:17 O2 Flow Rate 3 08/15/24 09:17 FiO2 35 08/15/24 04:00 08/14/24 08/15/24 08/15/24 22:59 06:59 14:59 Intake Total 3000 / 6313.33 3278.263 / 9591.593 192.5 / 192.5 Output Total 200 / 200 550 / 750 Balance 2800 / 6113.33 2728.263 / 8841.593 192.5 / 192.5 Weight last 48 hrs Weight 91.5 kg Weight 77.111 kg Physical Exam Narrative: General: No acute distress, AO x3, pallor present, dehydrated, pleasant HEENT: PERRLA, pupils bilaterally equal and reactive Chest: Bilateral bronchial breath sounds all over lung rai with occasional rhonchi CVS: S1-S2 regular, no murmurs, no tachycardia, no gallops, no rubs Abdomen: Soft, nontender, no organomegaly, bowel sounds present Neuro: No focal deficits, no facial deformity, AO x3, power 5/5 in all limbs Urinary Catheter Management: Marinelli: Cath Placed During This Visit: yes Reason for Continuing Indwelling Catheter: Accurate Measurement of Urinary Output in Critically Ill Patients Urinary Catheter Date of Insertion: 08/14/24 Urinary Catheter Time of Insertion: 15:17 Data 08/15/24 03:55 08/15/24 03:55 Micro: Microbiology 08/14/24 15:15 Urine Culture - Preliminary Urine,Clean Catch 08/14/24 12:55 Blood Culture - Preliminary Blood SPECIMEN COLLECTED 08/14/24 12:50 Blood Culture - Preliminary Blood SPECIMEN COLLECTED A&P Assessment and plan (1) Septic shock: Resolved. Keep mean arterial pressure 65. Levophed weaned off. IV fluid with bicarb drip at 100 cc/h. F/u blood culture,appreciated trend procalcitonin, negative MRSA swab,f/u urine culture. C/w IV Zosyn. D/c Vancomycin. De-escalate as per culture sensitivities. (2) Hypercapnic respiratory failure: pH normal today. Appreciate normal pCO2 on ABG. History of COPD. Oxygen supplementation given saturation over 88%. Pulmicort twice daily, DuoNeb every 6 hour. BiPAP as needed. Repeat ABG in AM. (3) Respiratory acidosis with metabolic acidosis: pH improving. On admission she had metabolic and respiratory in setting of hypercapnia and elevated lactate. Unlikely DKA. Negative ketones. pH improved normal today. Discontinue bicarb drip. Lactate level normal today. (4) GERARDO (acute kidney injury): Most likely in setting of septic shock. Baseline creatinine 1-1.4. Creatinine stable at around 1.8. Medical reconciliation done for nephrotoxic drugs. Monitor BMP daily. Monitor urine output. CT on pelvis negative for obstructive nephropathy. Continue with IVF with normal saline at 75 cc/h. (5) Atrial fibrillation with slow ventricular response: (6) UTI (urinary tract infection): (7) Iron deficiency anemia: Baseline hemoglobin seems to be in mid 9s. Even down to 7.4 in October 2023. Hemoglobin stable. Continue with IV iron supplementation. Target hemoglobin over 8 given history of CAD. If hemoglobin remains below 8 for next 24 hours can plan for PRBC transfusion. (8) HTN (hypertension): Goal blood pressure less than 140/90 mmHg with mean over 65. Currently in shock. Hold off on antihypertensive. Takes metoprolol 25 mg along with losartan 50 mg daily at home. (9) Coronary artery disease: History of CAD with PCI. Check A1c, lipid panel. Continue with home dose of Plavix, statin. Troponin cycle appreciated with delta negative in 2 hours. Cardiogram in 2023 showed an EF of 60 to 65% with grade 1 diastolic dysfunction, dilated LA, mild MR. Repeat echocardiogram (10) Lactic acid acidosis: (11) Type 2 diabetes mellitus: Ruled out. A1c of 5.8. Insulin sliding scale low-dose protocol. Hypoglycemia protocol (12) History of pulmonary embolism: Currently normal D-dimer. No concerns for PE. Switch from home dose of Eliquis 2.5 mg twice daily to Lovenox 1 mg/kg body weight daily as per creatinine clearance Plan Bradycardia: Heart rate dropping down to high 20s to mid 30s yesterday. 1 episode. Could be in setting of severe metabolic acidosis. Patient does take beta-joaquin at home. Hold off on metoprolol for now. Telemetry. Dopamine if heart rate persistently in 40s. If heart rate drops again we will consult cardiology. Full code Cardiac diet Protonix will be sufficient for PUD prophylaxis Full dose Lovenox with sufficient for DVT prophylaxis PDMP PDMP Reviewed: Not Reviewed Attestations Medical Necessity Statement*: Requires further hospitalization for management of severe sepsis in setting of UTI, resolving metabolic acidosis, bradycardia in setting of atrial fibrillation, GERARDO on CKD Diagnoses Septic shock A41.9; R65.21 Hypercapnic respiratory failure J96.92 Respiratory acidosis with metabolic acidosis E87.4 GERARDO (acute kidney injury) N17.9 Atrial fibrillation with slow ventricular response I48.91 Urinary tract infection with hematuria, site unspecified N39.0; R31.9 Urinary tract infection type: site unspecified Hematuria presence: with hematuria Iron deficiency anemia, unspecified iron deficiency anemia type D50.9 Iron deficiency anemia type: unspecified iron deficiency Primary hypertension I10 Hypertension type: primary hypertension Coronary artery disease involving [place] coronary artery of [place] heart without angina pectoris I25.10 Coronary Disease-Associated Artery/Lesion type: [place] artery [place] vs. transplanted heart: [place] heart Associated angina: without angina Lactic acid acidosis E87.20 Type 2 diabetes mellitus E11.9 History of pulmonary embolism Z86.711
[2024-08-15] MEDS: acetaminophen 325 mg Tablet 650 MG PO (10:36)
[2024-08-15] MEDS: lanolin oint 7 gm 1 APPLIC TOPICAL (10:59)
--- NOTE | 2024-08-15 12:36 | PC.NURSE ---
Reported to Dr. Cantu patient's 10/13 headache, low blood pressures and low O2 on monitor. Order to start levo, and ABG to assess if bipap needed. See MAR and charted vitals.
--- NOTE | 2024-08-15 12:54 | XR_ITS ---
WS: [id number] Portable AP upright chest, 08/15/2024 Clinical Data: hypoxia Comparison: Portable chest, 01/22/2024 Findings: The heart is enlarged and the pulmonary vascularity is increased. There is right pleural thickening which may represent fluid. No nodules or masses are seen but there is increased opacity in the left upper lobe relative to the remainder of the lungs. No pneumothorax is present. There are calcified lymph nodes in the superior left mediastinum. The aortic arch is tortuous. Monitor leads are on the chest wall. XR/XR chest 1V portable [id number] Impression: 1. Cardiomegaly with probable pulmonary vascular congestion. 2. Right pleural thickening which may represent fluid. 3. Increased opacity in the left upper lobe which may just represent fluid or a telectasis but follow-up x-ray is recommended.
[2024-08-15 12:57] LABS: ABG PCO2 40.8 mmHg (35-45); ABG PH Result 7.37 (7.35-7.45); Alveolar-Arterial Oxygen Gradi 16.4 mmHg (5-10); Arterial Blood Gas Hematocrit 24.3 % (37-47); Base Excess ABG -1.6 mmol/L (-2.0-2.0); Blood Gas Allen Test Pos; Blood Gas Operator Identificat GD; Blood Gas Sample Site Radial, right; Blood Gas Sample Type Arterial; Carboxyhemoglobin 1.3 %THgb (0.4-20.1); HCO3 ABG 23.6 mmol/L (22-26); HGB O2 Sat 83.6 % (95-100); Ionized Calcium Level - ABG 1.1 mmol/L (1.1-1.4); Methemoglobin 1.6 % (0.4-1.5); Oxygen Device NC; Oxygen Saturation ABG 86.1; PO2 ABG 51.9 mmHg (80.0-100.0); PO2 FiO2 Ratio Arterial Blood 162; Potassium Level - ABG 3.7 mmol/L (3.5-5.0); Total Hemoglobin 7.9 g/dL (12-16)
[2024-08-15 13:04] LABS: Hematocrit 24.7 % (36-47)
[2024-08-15] MEDS: FUROsemide 10 mg/mL SDV 4mL 40 MG IVP (13:23)
[2024-08-15 13:30] LABS: Blood Urea Nitrogen 25 mg/dL (8-23); Calcium 7.8 mg/dL (8.5-10.5); Carbon Dioxide 21 mmol/L (22-29); Chloride 102 mmol/L (98-107); Creatinine Clr Calc Pharmacy 26.2319; Glucose 155 mg/dL (65-115); Osmolality Calculated 300 mOsm/kg (285-295); Sodium 141 mmol/L (136-145)
--- NOTE | 2024-08-15 15:31 | PM.CCNAC ---
Critical Care Event Note Got a call from nurse that patient is hypotensive with mean artery pressure down to 60s. Blood pressure been low for over an hour. Acute examination done shows patient not being fluid responsive. Saturation down to low 80s on 5 L. Urine output documented off around 1 L since morning Plan: Start on Levophed keeping mean heart rate 65. Oxygen supplementation keeping saturation 88%. Stat ABG to rule out redevelopment of metabolic acidosis since bicarb drip was discontinued earlier today morning. Stat chest x-ray shows fluid overload. Stop IV fluids. Stat BMP, hemoglobin and hematocrit. IV Lasix 40 mg one-time. Depending on the hemoglobin level will plan for blood transfusion with target of more than 8. No concern for active bleeding. Patient does have a history of iron deficiency anemia in the past. The high probability of a clinically significant, sudden or life threatening deterioration of the patient's [cardiac, pulmonary] system(s) required my full and direct attention, intervention and personal management. The critical care time is as shown. This time is in addition to time spent performing any reported procedures but includes the following: [x] Data and vital sign review and interpretation [x] Patient assessment, examination and intervention [x] Documentation [x] Medication orders and management Critical Care Time Code activated: No Critical Care Time (min): 70 Additional information about critical care time: This patient has a high probability of clinically significant, sudden or life threatening deterioration of the patient's (neurological/pulmonary/cardiac/renal/ID/endocrine) systems required my full, direct attention, the highest level of physician preparedness for urgent intervention and personal management. I managed/supervised life or organ supporting interventions that required frequent physician assessment. I devoted my full attention in the ICU to the direct care of this patient for the period of time indicated above. Time I spent with family or surrogate(s) is included only if the patient was incapable of providing necessary information or participating in decision making. This time includes the following services provided: Telemetry review Nonmechanical ventilation Hemodynamic interpretation, assessment and management Review and interpretation of CXR Review and interpretation of lab values Review and interpretation of microbiologic data and culture results Review of medications and administration Review and interpretation of Nutrition requirements and management Discussion of management with other consultants and services Clinical update to family members Coding Level of Care Code Critical Care Other Coding Information Prolonged care (total time indicated above or notated here) Additional care given since seeing in morning for development of respiratory failure, shock
[2024-08-15] MEDS: sodium chloride 0.9% 100 mL Bag 50 ML IV (16:40)
[2024-08-15] MEDS: enoxaparin 80 mg/0.8 mL Syringe SUBCUT (17:51)
[2024-08-15] MEDS: ropinirole 0.25 mg Tablet 0.5 MG PO (20:53)
[2024-08-16] VITALS (89 sets, daily range): BP systolic 105–157; BP diastolic 45–83; PULSE 50–86; RESP 13–31; TEMP 36.5; O2SAT 82–96
[2024-08-16] MEDS: ipratropium-albuterol 3 mL Neb INHALATION ×4 (02:07→20:59)
[2024-08-16] MEDS: methylPREDNISolone sod succ 40 mg/mL INJ IVP ×3 (03:08→17:09)
[2024-08-16 03:15] LABS: Basophils % 0.1 %; Lymphocytes # 0.9 10^3/uL (0.8-4.8); Mean Corpuscular HGB Conc 32.1 g/dL (30-55); Mean Corpuscular Hemoglobin 26.9 pg (27-33); Mean Corpuscular Volume 83.8 fl (85-98); Mean Platelet Volume 9.9 fL (7.4-10.4); Monocytes # 0.8 10^3/uL (0.2-0.9); Monocytes % 4.5 %; Neutrophils # 15.64 10^3/uL (1.8-7.7); Neutrophils % 88.8 %; Nucleated Red Blood Cells % 0 %; Platelet Count 354 10^3/cmm (157-399); Red Blood Count 3.34 10^6/uL (3.85-5.65); Red Cell Distribution Width 13.8 % (12.1-15.1); White Blood Count 17.63 10^3/uL (3.29-11.43)
[2024-08-16 03:34] LABS: Alanine Aminotransferase 16 U/L (0-33); Albumin Level 3.7 g/dL (3.5-5.2); Alkaline Phosphatase 73 U/L (35-105); Anion Gap 16.6 (5-19); Aspartate Amino Transferase 22 U/L (0-32); Blood Urea Nitrogen 29 mg/dL (8-23); Calcium 8.4 mg/dL (8.5-10.5); Carbon Dioxide 28 mmol/L (22-29); Chloride 101 mmol/L (98-107); Creatinine Clr Calc Pharmacy 22.4845; Globulin 2.1 g/dL (1.3-4.6); Glucose 148 mg/dL (65-115); Magnesium 1.8 mg/dL (1.7-2.3); Osmolality Calculated 303 mOsm/kg (285-295); Phosphorus 3.6 mg/dL (2.5-4.5); Potassium 3.6 mmol/L (3.5-5.1); Sodium 142 mmol/L (136-145); Total Bilirubin 0.6 mg/dL (0.15-1.2); Total Protein 5.8 g/dL (6.6-8.7)
[2024-08-16] MEDS: pantoprazole 40 mg SDV IVP ×2 (03:55→17:09)
[2024-08-16] MEDS: levothyroxine 25 mcg Tablet PO (05:01)
[2024-08-16] MEDS: iron sucrose 200 MG in sodium chloride 0.9% (100 ml) 100 ML 220 MG IV (05:01)
[2024-08-16] MEDS: budesonide 0.5 mg/2 mL Neb INHALATION ×2 (08:08→20:59)
[2024-08-16] MEDS: clopidogrel 75 mg Tablet PO (08:25)
[2024-08-16] MEDS: piperacillin-tazobactam 3.375 GM in sodium chloride 0.9% (plus) 50 ML IV ×2 (08:25→16:45)
[2024-08-16] MEDS: docusate sodium 100 mg Capsule PO ×2 (08:26→17:10)
--- NOTE | 2024-08-16 09:36 | ECG_ITS ---
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 Measurements Intervals [place] Rate: 82 P: 0 MO: 0 QRS: 62 QRSD: 120 T: 180 QT: 285 QTc: 334 Interpretive Statements ATRIAL FIBRILLATION POSSIBLE LEFT VENTRICULAR HYPERTROPHY [VOLTAGE CRITERIA PLUS LAE OR QRS WIDENING] NONSPECIFIC ST & T-WAVE ABNORMALITY Compared to ECG 08/14/2024 18:41:12 No significant changes Electronically Signed On 08-16-2024 14:47:17 CDT by Wojciech Siddiqui M.D. [id number]
--- NOTE | 2024-08-16 09:41 | XR_ITS ---
WS: [id number] Portable AP semiupright chest, 08/16/2024 Clinical Data: hypoxia Comparison: Portable chest, 08/15/2024 Findings: The heart remains enlarged. The left pleural thickening has diminished but there is minimal opacification in the left lower lobe. Pulmonary vascularity is less congested. There is blunting of the right costophrenic angle. No pneumothorax is seen. The aortic arch shows calcification and tortuosity. There are calcified granulomas in the middle mediastinum. Monitor leads are on the chest wall. XR/XR chest 1V portable [id number] Impression: 1. Cardiomegaly with diminished pulmonary vascular congestion. 2. Decrease in left pleural thickening. 2. Pulmonary opacity in left lower lobe which may represent vascular congestion , atelectasis and/or pneumonia.
--- NOTE | 2024-08-16 09:47 | ECG_ITS ---
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 Measurements Intervals [place] Rate: 81 P: 57 [place]: 188 QRS: 62 QRSD: 112 T: 60 QT: 425 QTc: 495 Interpretive Statements SINUS RHYTHM LEFT VENTRICULAR HYPERTROPHY AND ST-T CHANGE [VOLTAGE CRITERIA PLUS ST/T ABNORMALITY] Compared to ECG 08/14/2024 18:41:12 ST (T wave) deviation now present T-wave abnormality no longer present Electronically Signed On 08-16-2024 14:47:03 CDT by Wojciech Siddiqui M.D. [id number] [id number]
--- NOTE | 2024-08-16 09:55 | PC.NURSE ---
Patient c/o new sudden onset chest pain 09/12 patient reported carina never felt like this , EKG performed Dr. Cantu at bedside is to consult cardiology
--- NOTE | 2024-08-16 10:02 | PC.SOCIAL ---
IMM Update pg 2 of IMM Updated and reviewed w/ patient. Copy provided and copy dated, initialed and placed in chart.
--- NOTE | 2024-08-16 10:09 | PC.NURSE ---
Dr. Chavarria came to bedside ordered nitro paste
[2024-08-16] MEDS: oxybutynin chloride XL 5 MG TABLET PO (10:14)
[2024-08-16] MEDS: nitroglycerin 1 gm/inch oint Pkt 0.5 INCH TOPICAL ×3 (10:14→21:17)
[2024-08-16 10:25] LABS: Troponin(5th) Baseline 233 ng/L (0-10)
[2024-08-16] MEDS: clopidogrel 75 mg Tablet 150 MG PO (10:47)
--- NOTE | 2024-08-16 12:06 | P.PN_ITS ---
Subjective 2 Subjective: Yesterday patient had respiratory distress requiring heated high flow. Currently on 45 L 55% saturating in low 90s. States she is breathing slightly better. Required Levophed yesterday which has been weaned off overnight. Did require amount of blood transfusion yesterday. Today morning on examination patient complaining of chest heaviness and pain. States this pain is different than what she has had before. Denies any nausea or vomiting. Appropriate urine output overnight. Vitals/I&O/Wt Last Vital Signs Temp 97.7 F 08/16/24 04:00 Pulse 54 L 08/16/24 11:21 Resp 22 H 08/16/24 11:21 BP 125/58 08/16/24 10:14 Pulse Ox 89 L 08/16/24 11:21 O2 Del Method Heated High Flow 08/16/24 08:08 O2 Flow Rate 60 08/16/24 11:21 FiO2 45 08/16/24 11:21 08/15/24 08/16/24 08/16/24 22:59 06:59 14:59 Intake Total 840.937 / 1681.687 172.438 / 1854.125 200 / 200 Output Total 1750 / 3600 2600 / 6200 Balance -909.063 / -1918.313 -2427.562 / -4345.875 200 / 200 Weight last 48 hrs Weight 87.5 kg Weight 87.5 kg Weight 91.5 kg Weight 77.111 kg Physical Exam 2 Narrative: General: No acute distress, AO x3, pallor present, sick appearing, pleasant HEENT: PERRLA, pupils bilaterally equal and reactive Chest: Bilateral bronchial breath sounds all over lung rai with occasional rhonchi CVS: S1-S2 regular, no murmurs, no tachycardia, no gallops, no rubs Abdomen: Soft, nontender, no organomegaly, bowel sounds present Neuro: No focal deficits, no facial deformity, AO x3, power 5/5 in all limbs Urinary Catheter Management: Marinelli: Cath Placed During This Visit: yes Reason for Continuing Indwelling Catheter: Accurate Measurement of Urinary Output in Critically Ill Patients Urinary Catheter Date of Insertion: 08/14/24 Urinary Catheter Time of Insertion: 15:17 Data 08/16/24 03:08 08/16/24 03:08 Micro: Microbiology 08/14/24 15:15 Urine Culture - Final Urine,Clean Catch 08/15/24 14:18 Bacterial Antigens - Final Urine Kidney 08/14/24 12:55 Blood Culture - Preliminary Blood NEGATIVE TO DATE 08/14/24 12:50 Blood Culture - Preliminary Blood NEGATIVE TO DATE A&P Assessment and plan (1) Septic shock: Resolved. Keep mean arterial pressure 65. Levophed weaned off. IV fluid with bicarb drip at 100 cc/h. F/u blood culture,appreciated trend procalcitonin, negative MRSA swab,f/u urine culture. C/w IV Zosyn. De-escalate as per culture sensitivities. (2) Acute hypoxic on chronic hypercapnic respiratory failure: In setting of congestive heart failure. Oxygen supplementation keeping saturation over 88%. Wean accordingly. Repeat chest x-ray. Pulmicort twice daily, DuoNeb every 6 hour. Wean Solu-Medrol to 40 mg every 12 hourly. (3) NSTEMI (non-ST elevated myocardial infarction): Patient having new chest pain today. Baseline troponin 233. Appreciate EKG showing ST depression in V3-V6. Cycle troponin. Will consult cardiology. Patient already on full dose Lovenox 1 mg/kg body weight daily as per creatinine clearance. Already on Plavix 75 mg daily. Will load with 150 mg tomorrow. Patient allergic to aspirin. Nitropaste half inch. Monitor blood pressures. Patient not a good candidate for angiogram for now given advanced age, worsening creatinine though if continues to have chest pain might need cardiac angiogram. Last cardiac angiogram from 07/27 showed left main having mild to moderate disease, LAD tortuous with mild to moderate diffuse disease, LCx diffuse mild to moderate disease, ostial RCA with 70% stenosis, mid right RCA 90% stenosis. Patient underwent mid RCA revascularization with PCI, ostial RCA revascularization with PCI. (4) GERARDO (acute kidney injury): Most likely in setting of septic shock. Baseline creatinine 1-1.4. Creatinine increasing to 2.1. Medical reconciliation done for nephrotoxic drugs. Monitor BMP daily. Monitor urine output. CT on pelvis negative for obstructive nephropathy. Hold off on any further IV diuresis and fluids for now. Monitor renal functions daily. (5) CHF (congestive heart failure): Echocardiogram done shows normal EF with grade 3 diastolic dysfunction with moderate LVH. Concerns for acute decompensated diastolic heart failure. Overall patient had 6 L of urine output yesterday after Lasix. Strict input charting, daily weights. Fluid restriction of less than 1500 cc. Hold off on diuresis for now given mild GERARDO. (6) Atrial fibrillation with slow ventricular response: (7) Coronary artery disease: History of CAD with PCI. Appreciate A1c, lipid panel. Continue with home dose of Plavix, statin. Troponin cycle appreciated and negative on admission. (8) Hypercapnic respiratory failure: Hypercapnic respiratory failure is resolved. Further treatment as above. (9) Respiratory acidosis with metabolic acidosis: On admission she had metabolic and respiratory in setting of hypercapnia and elevated lactate. Unlikely DKA. Negative ketones. Resolved. (10) UTI (urinary tract infection): (11) Iron deficiency anemia: Baseline hemoglobin seems to be in mid 9s. Target hemoglobin over 8. Post to monitor blood transfusion. Continue with IV iron supplementation. (12) HTN (hypertension): Goal blood pressure less than 140/90 mmHg with mean over 65. Hold off on antihypertensive. Takes metoprolol 25 mg along with losartan 50 mg daily at home. (13) Lactic acid acidosis: (14) Type 2 diabetes mellitus: Ruled out. A1c of 5.8. Insulin sliding scale low-dose protocol. Hypoglycemia protocol (15) History of pulmonary embolism: Currently normal D-dimer. No concerns for PE. Switch from home dose of Eliquis 2.5 mg twice daily to Lovenox 1 mg/kg body weight daily as per creatinine clearance Plan Bradycardia: Heart rate dropping down to high 20s to mid 30s yesterday. 1 episode. Could be in setting of severe metabolic acidosis. Patient does take beta-joaquin at home. Hold off on metoprolol for now. Telemetry. Full code Cardiac diet Protonix will be sufficient for PUD prophylaxis Full dose Lovenox with sufficient for DVT prophylaxis PDMP PDMP Reviewed: Not Reviewed Attestations 2 Medical Necessity Statement*: Requires further hospitalization for management of non-ST elevation [place], respiratory failure in setting of acute decompensated diastolic heart failure, severe sepsis in setting of UTI Critical Care Time: The high probability of a clinically significant, sudden or life threatening deterioration of the patient's [cardiac, pulmonary, renal] system(s) required my full and direct attention, intervention and personal management. The critical care time is as shown. This time is in addition to time spent performing any reported procedures but includes the following: [x] Data and vital sign review and interpretation [x] Patient assessment, examination and intervention [x] Documentation [x] Medication orders and management Critical Care Time (min): 80 Coding Level of Care Code Critical Care >/= 30 minutes Critical care time (in minutes): 80 The high probability of a clinically significant, sudden or life threatening deterioration, as referenced in this documentation, required my full and direct attention, intervention and personal management. The critical care time shown is in addition to time spent performing any reported separately billable procedures and includes the following: [x] Data and vital sign review and interpretation [x ] Patient assessment, examination and intervention [x] Medication orders and management [x] Patient/Family updates as able [x] Care Coordination and Documentation. Other Coding Information This patient has a high probability of clinically significant, sudden or life threatening deterioration of the patient's (neurological/pulmonary/cardiac/renal/ID/endocrine) systems required my full, direct attention, the highest level of physician preparedness for urgent intervention and personal management. I managed/supervised life or organ supporting interventions that required frequent physician assessment. I devoted my full attention in the ICU to the direct care of this patient for the period of time indicated above. Time I spent with family or surrogate(s) is included only if the patient was incapable of providing necessary information or participating in decision making. This time includes the following services provided: Telemetry review Hemodynamic interpretation, assessment and management Review and interpretation of CXR Review and interpretation of lab values Review and interpretation of microbiologic data and culture results Review of medications and administration Review and interpretation of Nutrition requirements and management Discussion of management with other consultants and services Clinical update to family members Diagnoses Septic shock A41.9; R65.21 Acute hypoxic on chronic hypercapnic respiratory failure J96.01; J96.12 NSTEMI (non-ST elevated myocardial infarction) I21.4 GERARDO (acute kidney injury) N17.9 Acute on chronic diastolic congestive heart failure I50.33 Heart failure type: diastolic Heart failure chronicity: acute on chronic Atrial fibrillation with slow ventricular response I48.91 Coronary artery disease involving [place] coronary artery of [place] heart without angina pectoris I25.10 Coronary Disease-Associated Artery/Lesion type: [place] artery [place] vs. transplanted heart: [place] heart Associated angina: without angina Hypercapnic respiratory failure J96.92 Respiratory acidosis with metabolic acidosis E87.4 Urinary tract infection with hematuria, site unspecified N39.0; R31.9 Urinary tract infection type: site unspecified Hematuria presence: with hematuria Iron deficiency anemia, unspecified iron deficiency anemia type D50.9 Iron deficiency anemia type: unspecified iron deficiency Primary hypertension I10 Hypertension type: primary hypertension Lactic acid acidosis E87.20 Type 2 diabetes mellitus E11.9 History of pulmonary embolism Z86.711
[2024-08-16 12:13] LABS: Troponin 5 2HR Delta -9.9 ABS# (0-10)
[2024-08-16 12:15] LABS: Troponin 5 2HR 223.1 ng/L (0-10)
--- NOTE | 2024-08-16 12:33 | PM.CONSULT ---
Providers/Reason For Consult Consulting Physician/Specialty*: CLARISSA Chavarria MD/cardiology Reason for Consult*: Chest pains/abnormal EKG Requesting Physician: Dr. Cantu Attending Physician: Ralph Cantu MD Primary Care Provider: Juan Carlos Sherman MD History of Present Illness History of Present Illness Ayah Sanchez is a 78 year old female with a history of atherosclerotic heart diseas and previous PCI, is admitted to the hospital through the emergency room where she presented with complaints of nausea vomiting and dysuria. She had a dysuria for couple of weeks. She was found to be in hypercapnic respiratory failure. Also was found to have features of septic shock. She had features of respiratory and metabolic acidosis. She was treated with IV antibiotics, fluids and other symptomatic measures. Her oxygenation has been slowly improving.. This morning, she started having left-sided chest pain, with some new EKG changes. Cardiology consult is requested for further cardiac evaluation and recommendations. This patient apparently has been in her baseline state of health up until a day prior to the hospital admission when she started having nausea and vomiting. Also was complaining of lower abdominal pain. She was found to have elevated white cell count. Her urine was found to be turbid with a greater than 100 WBC per high-power field. The urine was positive for leukocyte esterase. She is currently on IV antibiotic. This morning, right after breakfast, she started having left-sided chest pain. The pain is radiating across the chest. She had associated shortness of breath. No other associated symptoms or radiation of pain. Intensity of the pain was 6-7/10. The pain made her lasted for 15 minutes or so. At the time of examination, patient is pain-free. Last night, she had some oxygen desaturation. Her oxygen needed to be bumped up to 4 L/min. The oxygen saturation is slowly improving. Currently she is on 3 L of oxygen by nasal cannula. Patient apparently has been on home oxygen for the last year or so. She has a history of atherosclerotic heart disease, hypertension, , dyslipidemia,, iron deficiency anemia, pulmonary embolism, COPD, chronic kidney disease GI bleed from AVM, carotid artery disease and glucose intolerance. He presented with the features of a non-ST lesion myocardial infarction in July of last year. At that time, she was complaining of chest pain nausea and vomiting. She had elevated white cell count also at that time. Subsequently she underwent a cardiac catheterization which revealed high-grade lesion at the ostium of the right coronary artery and in the mid RCA. She underwent a PCI of these lesions. She been compliant with the medications. Apparently she has been doing okay with no significant cardiac symptoms since then. Review of Systems Narrative: CONSTITUTIONAL: No fever or chills. EYES: No blurring of vision or other visual disturbances lately. ENT: No hoarseness of voice, auditory disturbances or sore throat. CARDIOVASCULAR: As mentioned above. RESPIRATORY: No significant cough. GASTROINTESTINAL: Nausea and vomiting as mentioned above GENITOURINARY: Dysuria as mentioned above INTEGUMENTARY: No skin rashes or history of skin cancer. NEURO: No transient ischemic attacks or amaurosis. PSYCHIATRIC: No history of psychosis or major depression. HEMATOLOGIC: Chronic anemia ENDOCRINE: History of glucose intolerance MUSCULOSKELETAL: No recent joint pain or swelling. ALLERGY/IMMUNOLOGY: As mentioned above. Medications/Allergies Home Medications ?Medication ?Instructions ?Recorded ?Confirmed ?Last Taken ?Type leg brace (Ankle Brace) #1 ea 11/02/23 08/14/24 Unknown Rx albuterol sulfate 2.5 mg/3 mL 2.5 mg (3 mL) inhalation QID PRN 11/15/23 08/14/24 Unknown Rx (0.083 %) solution for nebulization shortness of breath or wheezing #75 mL nitroglycerin 0.4 mg sublingual See Rx Instructions .Route 01/11/24 08/14/24 Unknown Rx tablet .COMPLEX #25 tabs losartan 50 mg tablet 50 mg PO DAILY #90 tabs 04/04/24 08/14/24 08/13/24 Rx ascorbate calcium (vitamin C) 500 500 mg PO DAILY #60 tabs 07/02/24 08/14/24 08/13/24 Rx mg tablet fluticasone propionate 50 2 spray intranasal DAILY #16 grams 07/02/24 08/14/24 08/13/24 Rx mcg/actuation nasal spray,suspension (Flonase Allergy Relief) methenamine hippurate 1 gram tablet 1 g PO BID #60 tabs 07/02/24 08/14/24 Unknown Rx ferrous sulfate 325 mg (65 mg 325 mg PO .q48 3 months #45 tabs 07/03/24 08/14/24 08/13/24 Rx iron) tablet (Feosol) metoprolol tartrate 25 mg tablet See Rx Instructions .Route 07/08/24 08/14/24 08/13/24 Rx .COMPLEX #180 tabs cetirizine 10 mg tablet 10 mg PO DAILY PRN allergy symtoms 07/19/24 08/14/24 08/13/24 Rx #90 tabs Ventolin HFA 90 mcg/actuation 2 puff inhalation Q4H PRN 08/06/24 08/14/24 Unknown Rx aerosol inhaler (albuterol sulfate) shortness of breath or wheezing #18 grams amlodipine 10 mg tablet See Rx Instructions .Route 08/06/24 08/14/24 08/13/24 Rx .COMPLEX #90 tabs clopidogrel 75 mg tablet See Rx Instructions .Route 08/06/24 08/14/24 08/13/24 Rx .COMPLEX #90 tabs pantoprazole 40 mg tablet,delayed 40 mg PO BID #180 tabs 08/06/24 08/14/24 08/13/24 Rx release apixaban 2.5 mg tablet (Eliquis) 2.5 mg PO BID 08/14/24 08/14/24 08/13/24 History potassium chloride 10 mEq 10 meq PO DAILY 08/14/24 08/14/24 08/13/24 History capsule,extended release Allergies Allergy/AdvReac Type Severity Reaction Status Date / Time adhesive tape Allergy Mild ALGY-Rash Verified 07/02/24 11:08 aspirin Allergy Unknown unknown Verified 07/02/24 11:08 Sulfa (Sulfonamide Allergy Unknown unknown Verified 07/02/24 11:08 Antibiotics) Current Medications Generic Name Dose Route Start Last Admin Trade Name Freq PRN Reason Stop Dose Admin Acetaminophen 650 mg 08/14/24 16:54 08/15/24 10:36 Acetaminophen 325 Mg Tablet PO 650 mg Q6H PRN Administration Mild/Mod Pain Or Temp >/= 101 Albuterol/Ipratropium 3 ml 08/14/24 20:00 08/16/24 08:08 Ipratropium-Albuterol 3 Ml Neb INHALATION 3 ml Q6H.RESP CLAIRE Administration Budesonide 0.5 mg 08/14/24 20:00 08/16/24 08:08 Budesonide 0.5 Mg/2 Ml Neb INHALATION 0.5 mg BID.RESPIRATORY CLAIRE Administration Clopidogrel Bisulfate 75 mg 08/15/24 09:00 08/16/24 08:25 Clopidogrel 75 Mg Tablet PO 75 mg DAILY CLAIRE Administration Docusate Sodium 100 mg 08/14/24 18:00 08/16/24 08:26 Docusate Sodium 100 Mg Capsule PO 100 mg BID CLAIRE Administration Enoxaparin Sodium 80 mg 08/14/24 18:00 08/15/24 17:51 Enoxaparin 80 Mg/0.8 Ml Syringe SUBCUT 80 mg Q24H CLAIRE Administration Norepinephrine Bitartrate 4 mg in 250 mls @ 0 mls/hr 08/14/24 14:30 08/16/24 01:20 Levophed IV 0 mcg/min .Q0M CLAIRE 0 mls/hr Protocol Titration Per Protocol Piperacillin Sod/Tazobactam 50 mls @ 12.5 mls/hr 08/14/24 16:00 08/16/24 08:25 Sod 3.375 gm/ Sodium Chloride IV 12.5 mls/hr Q8H CLAIRE Administration Protocol Dopamine HCl/Dextrose 400 mg in 250 mls @ 14.458 mls/hr 08/14/24 19:00 08/15/24 18:30 Intropin Drip IV Not Given CONT CLAIRE Protocol 5 MCG/KG/MIN Iron Sucrose 200 mg/ Sodium 110 mls @ 220 mls/hr 08/15/24 06:00 08/16/24 05:31 Chloride IV 08/19/24 06:29 Infused Q24H [facility] Infusion Lanolin 1 applic 08/15/24 10:46 08/15/24 10:59 Lanolin Oint 7 Gm TOPICAL 1 applic PRN PRN Administration DRYNESS Levothyroxine Sodium 25 mcg 08/16/24 06:00 08/16/24 05:01 Levothyroxine 25 Mcg Tablet PO 25 mcg QAM CLAIRE Administration Methylprednisolone Sodium Succinate 40 mg 08/14/24 19:00 08/16/24 10:15 Methylprednisolone Sod Succ 40 Mg/Ml Inj IVP 40 mg Q8H CLAIRE Administration Nitroglycerin 0.5 inch 08/16/24 10:15 08/16/24 10:14 Nitroglycerin 1 Gm/Inch Oint Pkt TOPICAL 0.5 inch Q6H CLAIRE Administration Oxybutynin Chloride 5 mg 08/16/24 09:45 08/16/24 10:14 Oxybutynin Chloride Xl 5 Mg Tablet PO 5 mg DAILY CLAIRE Administration Pantoprazole Sodium 40 mg 08/14/24 16:54 08/16/24 03:55 Pantoprazole 40 Mg Sdv IVP 40 mg Q12H CLAIRE Administration Ropinirole HCl 0.5 mg 08/15/24 21:00 08/15/24 20:53 Ropinirole 0.25 Mg Tablet PO 0.5 mg BEDTIME CLAIRE Administration Sodium Chloride 50 ml 08/15/24 15:30 08/15/24 16:40 Sodium Chloride 0.9% 100 Ml Bag IV 08/16/24 15:31 50 ml PRN PRN Administration Blood transfusion prime and flush PFSH Acute PFSH: Medical History (Updated 08/16/24 @ 12:58 by Guicho Chavarria MD) NSTEMI (non-ST elevated myocardial infarction) Atrial fibrillation with slow ventricular response Moderate major depression Arthritis of both hands Coronary artery disease Leukocytosis Anemia Chest pain AVM (arteriovenous malformation) HTN (hypertension) Dark stools Pulmonary embolism COPD (chronic obstructive pulmonary disease) Hiatal hernia Diverticulosis Colon polyps Presence of intrathecal pump Bilateral carotid artery stenosis Hyperlipidemia associated with type 2 diabetes mellitus Ventricular hypertrophy Surgical History H/O: hysterectomy H/O cataract extraction Hx of appendectomy Family History Mother CAD (coronary artery disease), Onset Age: 70 Cancer Dementia Sister Diabetes Denies family history of Clotting disorder Chronic kidney disease (CKD) Suicide Anesthesia complication Bleeding disorder Lung disease Stroke Social History Smoking and tobacco/nicotine status: former use of tobacco/nicotine Quit status (tobacco/nicotine): has quit using Year quit tobacco: 2022 Former quit date comment: 1.5 ppd X 50 Alcohol intake: never Substance/Drug Use: never Female Reproductive History: Spontaneous abortions: No Vitals/I&O/Wt Last Vital Signs Temp 97.7 F 08/16/24 04:00 Pulse 54 L 08/16/24 11:21 Resp 22 H 08/16/24 11:21 BP 125/58 08/16/24 10:14 Pulse Ox 89 L 08/16/24 11:21 O2 Del Method Heated High Flow 08/16/24 08:08 O2 Flow Rate 60 08/16/24 11:21 FiO2 45 08/16/24 11:21 08/15/24 08/16/24 08/16/24 22:59 06:59 14:59 Intake Total 840.937 / 1681.687 172.438 / 1854.125 200 / 200 Output Total 1750 / 3600 2600 / 6200 Balance -909.063 / -1918.313 -2427.562 / -4345.875 200 / 200 Weight last 48 hrs Weight 192 lb 14.472 oz Weight 192 lb 14.472 oz Weight 201 lb 11.567 oz Physical Exam Narrative: GENERAL: The patient is alert and oriented times three. Not in any acute distress. HEENT: There is minimal pallor. No, icterus or lymphadenopathy.Oral cavity: There are no mucous membrane lesions. NECK: Trachea appears to be central. No masses noted. No JVD or thyromegaly appreciated. RESPIRATORY: Chest is symmetrical. No intercostals muscle retraction or any accessory muscle activation. There is no chest wall tenderness. Breath sounds are heard bilaterally. No rales or rhonchi heard. No evidence of any consolidation. BREASTS: Deferred. HEART: The heart sounds are normal. No S3 or S4. No significant murmurs. No pericardial rub ABDOMEN: No vessel pulsations or distention. No tenderness. No organomegaly appreciated. Bowel sounds are normally heard. : Deferred. RECTAL: Deferred. LYMPHATIC: No lymphadenopathy noted in the neck. EXTREMITIES: No edema or cyanosis. No clubbing. MUSCULOSKELETAL: No acute joint deformities or swelling SKIN: There are no significant rashes or ecchymosis NEUROPSYCHIATRIC: The patient is alert and oriented x3. Appears to be in a good mood. No tremors or rigidity noted. Urinary Catheter Management: Marinelli: Cath Placed During This Visit: yes Reason for Continuing Indwelling Catheter: Accurate Measurement of Urinary Output in Critically Ill Patients Urinary Catheter Date of Insertion: 08/14/24 Urinary Catheter Time of Insertion: 15:17 Data 08/16/24 03:08 08/16/24 03:08 Other Labs: Laboratory Last Values WBC 17.63 10^3/uL (3.29-11.43) H 08/16/24 03:08 RBC 3.34 10^6/uL (3.85-5.65) L 08/16/24 03:08 Hgb 9.00 g/dL (11.27-16.99) L 08/16/24 03:08 Hct 28.0 % (36-47) L 08/16/24 03:08 MCV 83.8 fl (85-98) L D 08/16/24 03:08 MCH 26.9 pg (27-33) L 08/16/24 03:08 MCHC 32.1 g/dL (30-55) D 08/16/24 03:08 RDW 13.8 % (12.1-15.1) 08/16/24 03:08 Plt Count 354 10^3/cmm (157-399) 08/16/24 03:08 MPV 9.9 fL (7.4-10.4) 08/16/24 03:08 Neut % (Auto) 88.8 % 08/16/24 03:08 Lymph % (Auto) 5.0 % 08/16/24 03:08 Waldo % (Auto) 4.5 % 08/16/24 03:08 Eos % (Auto) 0.0 % 08/16/24 03:08 Baso % (Auto) 0.1 % 08/16/24 03:08 Neut # (Auto) 15.64 10^3/uL (1.8-7.7) H 08/16/24 03:08 Lymph # (Auto) 0.9 10^3/uL (0.8-4.8) 08/16/24 03:08 Waldo # (Auto) 0.8 10^3/uL (0.2-0.9) 08/16/24 03:08 Eos # (Auto) 0.0 10^3/uL (0.0-0.8) 08/16/24 03:08 Baso # (Auto) 0.0 10^3/uL (0.0-0.1) 08/16/24 03:08 Nucleated RBC % (auto) 0 % 08/16/24 03:08 Nucleated RBCs # 0.0 /100WBC 08/16/24 03:08 D-Dimer 0.48 ug/mLFEU (0-0.59) 08/14/24 12:30 Specimen Type Arterial 08/15/24 12:40 Sample Site Radial, right 08/15/24 12:40 ABG pH 7.37 (7.35-7.45) 08/15/24 12:40 ABG pCO2 40.8 mmHg (35-45) 08/15/24 12:40 ABG pO2 51.9 mmHg (80.0-100.0) L 08/15/24 12:40 ABG PO2/FiO2 Ratio 162 08/15/24 12:40 ABG HCO3 23.6 mmol/L (22-26) 08/15/24 12:40 ABG O2 Saturation 86.1 08/15/24 12:40 ABG Base Excess -1.6 mmol/L (-2.0-2.0) 08/15/24 12:40 Satnam Test Pos 08/15/24 12:40 A-a O2 Gradient 16.4 mmHg (5-10) H 08/15/24 12:40 Hematocrit 24.3 % (37-47) L 08/15/24 12:40 Hgb O2 Saturation 83.6 % (95-100) L 08/15/24 12:40 Carboxyhemoglobin 1.3 %THgb (0.4-20.1) 08/15/24 12:40 Methemoglobin 1.6 % (0.4-1.5) H 08/15/24 12:40 Total Hemoglobin 7.9 g/dL (12-16) L 08/15/24 12:40 Sodium 141.0 mmol/L (131-143) 08/15/24 12:40 Potassium 3.7 mmol/L (3.5-5.0) 08/15/24 12:40 Glucose 157.0 mg/dL (70-115) H 08/15/24 12:40 Ionized Calcium 1.1 mmol/L (1.1-1.4) 08/15/24 12:40 O2 Delivery Device Nc 08/15/24 12:40 O2 Liters/Min 3.0 % 08/15/24 12:40 FiO2 32.0 % 08/15/24 12:40 Tidal Volume 0.46 08/14/24 15:45 PEEP 8.0 cmH20 08/14/24 15:45 [employer] Super[employer] ID Gd 08/15/24 12:40 Sodium 142 mmol/L (136-145) 08/16/24 03:08 Potassium 3.6 mmol/L (3.5-5.1) 08/16/24 03:08 Chloride 101 mmol/L (98-107) 08/16/24 03:08 Carbon Dioxide 28 mmol/L (22-29) 08/16/24 03:08 Anion Gap 16.6 (5-19) 08/16/24 03:08 BUN 29 mg/dL (8-23) H 08/16/24 03:08 Creatinine 2.1 mg/dL (0.5-0.9) H 08/16/24 03:08 GFR Calculation Not Reportable 08/16/24 03:08 Glucose 148 mg/dL (65-115) H 08/16/24 03:08 Estimat Average Glucose 120 08/14/24 12:30 Hemoglobin A1c 5.8 % (4.0-6.0) 08/14/24 12:30 Calculated Osmolality 303 mOsm/kg (285-295) H 08/16/24 03:08 Lactic Acid 2.0 mmol/L (0.5-2.2) 08/15/24 03:55 Lactic Acid (Sepsis) 3.5 mmol/L (0.5-2.2) H 08/14/24 15:13 Calcium 8.4 mg/dL (8.5-10.5) L 08/16/24 03:08 Phosphorus 3.6 mg/dL (2.5-4.5) 08/16/24 03:08 Magnesium 1.8 mg/dL (1.7-2.3) 08/16/24 03:08 Iron 12 ug/dL (37-145) L 08/14/24 16:19 TIBC 366 mcg/dl 08/14/24 16:19 % Saturation 3.2 % (20-50) L 08/14/24 16:19 Unsat Iron Binding 354 ug/dL (112-347) H 08/14/24 16:19 Total Bilirubin 0.6 mg/dL (0.15-1.2) 08/16/24 03:08 AST 22 U/L (0-32) 08/16/24 03:08 ALT 16 U/L (0-33) 08/16/24 03:08 Alkaline Phosphatase 73 U/L (35-105) 08/16/24 03:08 Troponin T Baseline 233 ng/L (0-10) H* 08/16/24 09:59 Troponin T 120 Minute 223.1 ng/L (0-10) H 08/16/24 11:47 Delta Troponin T -9.9 ABS# (0-10) L 08/16/24 11:47 Troponin T Hi Sens 6Hr 40.02 ng/L (0-10) H 08/14/24 18:59 Troponin T Hi Sens 6Hr Delta 16.02 ng/L (0-12) H* 08/14/24 18:59 Total Protein 5.8 g/dL (6.6-8.7) L 08/16/24 03:08 Albumin 3.7 g/dL (3.5-5.2) 08/16/24 03:08 Globulin 2.1 g/dL (1.3-4.6) 08/16/24 03:08 Triglycerides 78 mg/dL (0-150) 08/15/24 03:55 Cholesterol 146 mg/dL (0-200) 08/15/24 03:55 LDL Cholesterol, Calc 93 mg/dL (50-129) 08/15/24 03:55 HDL Cholesterol 37 mg/dL (60-100) L 08/15/24 03:55 LDL/HDL Ratio 2.51 RATIO (0.00-3.22) 08/15/24 03:55 Cholesterol/HDL Ratio 3.95 mg/dL (0.0-4.40) 08/15/24 03:55 Lipase 76 U/L (13-60) H 08/14/24 12:30 Vitamin B12 474 pg/mL (232-1245) 08/14/24 16:19 Folate 8.0 ng/mL (4.8-37.3) 08/15/24 03:55 Procalcitonin 0.32 ng/mL (0-0.5) 08/15/24 03:55 TSH 8.70 uIU/mL (0.27-4.20) H 08/14/24 16:19 Free T4 1.20 ng/dL (0.82-1.77) 08/15/24 03:55 Free T3 1.7 PG/ML (2.0-4.4) L 08/15/24 03:55 Urine Color Yellow (Yellow) 08/14/24 15:15 Urine Appearance Turbid (CLEAR) A 08/14/24 15:15 Urine pH 5.0 (5-7) 08/14/24 15:15 Ur Specific [place] 1.020 (1.005-1.030) 08/14/24 15:15 Urine Protein 2+ (Negative) A 08/14/24 15:15 Urine Glucose (UA) Trace (Normal) H 08/14/24 15:15 Urine Ketones Trace (Negative) 08/14/24 15:15 Urine Blood Trace (Negative) A 08/14/24 15:15 Urine Nitrate Negative (Negative) 08/14/24 15:15 Urine Bilirubin Negative (Negative) 08/14/24 15:15 Urine Urobilinogen 1.0 mg/dL (Negative) 08/14/24 15:15 Ur Leukocyte Esterase 2+ (Negative) A 08/14/24 15:15 Urine RBC 21-50 /hpf (0-2) H 08/14/24 15:15 Urine WBC >100 /hpf (0-5) H 08/14/24 15:15 Ur Squamous Epith Cells 6-10 /hpf (0-5) 08/14/24 15:15 Amorphous Sediment Trace /hpf 08/14/24 15:15 Urine Bacteria Trace /hpf (NONE) 08/14/24 15:15 Hyaline Casts 88.53 /lpf 08/14/24 15:15 Ur Oval Fat Bodies 1+ /hpf 08/14/24 15:15 Nasal MRSA (PCR) Not detected (Not Detecte) 08/14/24 17:45 Salicylates < 0.3 mg/dL (3-10) L 08/14/24 12:30 Urine Opiates Screen Positive ng/mL (Negative) H 08/14/24 15:15 Acetaminophen < 5.0 ug/mL (10-30) L 08/14/24 12:30 Ur Barbiturates Screen Negative ng/mL (Negative) 08/14/24 15:15 Ur Phencyclidine Scrn Negative ng/mL (Negative) 08/14/24 15:15 Ur Amphetamines Screen Negative ng/mL (Negative) 08/14/24 15:15 U Benzodiazepines Scrn Negative ng/mL (Negative) 08/14/24 15:15 Urine Cocaine Screen Negative ng/mL (Negative) 08/14/24 15:15 U Marijuana (THC) Screen Negative ng/mL (Negative) 08/14/24 15:15 Ethyl Alcohol < 10 mg/dL (0-10) 08/14/24 12:30 Serum Ketones Negative (Negative) 08/14/24 17:20 Blood Type A Positive 08/15/24 12:55 Rho(D) Type Rh positive 08/15/24 12:55 Antibody Screen Negative 08/15/24 12:55 Crossmatch See Detail 08/15/24 12:55 Micro: Microbiology 08/14/24 15:15 Urine Culture - Final Urine,Clean Catch 08/15/24 14:18 Bacterial Antigens - Final Urine Kidney 08/14/24 12:55 Blood Culture - Preliminary Blood NEGATIVE TO DATE 08/14/24 12:50 Blood Culture - Preliminary Blood NEGATIVE TO DATE Other data: The EKG from today revealed sinus rhythm with a rate of [address] depressions in the anterolateral and inferior leads. This is a new change compared to the admission EKG. The EKG changes are somewhat similar to what she had in July of last year. A&P Assessment and plan (1) Atherosclerotic heart disease of [place] coronary artery with unstable angina pectoris: The patient is her clinical features may suggest new onset angina. EKG changes suggest anterolateral/inferior wall ischemia. Hemodynamically she seems to be stable. Possibility of restenosis versus progression of disease in the other vessels are considerations. (2) Bilateral carotid artery stenosis: Patient is seems to be stable (3) Mixed dyslipidemia: May continue on the current medications. (4) CHF (congestive heart failure): Patient responded to IV Lasix last night. (5) History of pulmonary embolism: Patient is on long-term oral anticoagulation. (6) Respiratory acidosis with metabolic acidosis: This could be multifactorial. COPD exacerbation/congestive heart failure/sepsis are contributing factor (7) Acute kidney injury superimposed on chronic kidney disease: Currently the kidney function seems to be fairly stable Plan Other problems are Hypercapnic respiratory failure, currently has improved Anemia, stable Urosepsis, improving Will go ahead and do a troponin T now and do serial for 2 more. Patient may be kept on the heparin. Also may give an extra dose of Plavix on 50 mg p.o. I may start her on Nitropaste half inch every 6 hours to the anterior chest wall. Other medication may be continued Based on the clinical progress, further recommendations will be made. Thank you for the opportunity to evaluate this patient and make these recommendations PDMP PDMP Reviewed: Not Reviewed Coding Level of Care Code 81121 Diagnoses Atherosclerosis of [place] coronary artery of [place] heart with unstable angina pectoris I25.110 [place] vs. transplanted heart: [place] heart Bilateral carotid artery stenosis I65.23 Mixed dyslipidemia E78.2 Acute on chronic diastolic congestive heart failure I50.33 Heart failure type: diastolic Heart failure chronicity: acute on chronic History of pulmonary embolism Z86.711 Respiratory acidosis with metabolic acidosis E87.4 Acute kidney injury superimposed on chronic kidney disease N17.9; N18.9
--- NOTE | 2024-08-16 12:39 | ECG_ITS ---
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 Measurements Intervals [place] Rate: 60 P: 39 W[place]: 157 QRS: 63 QRSD: 111 T: 94 QT: 353 QTc: 353 Interpretive Statements SINUS RHYTHM WITH SINUS ARRHYTHMIA POSSIBLE LEFT VENTRICULAR HYPERTROPHY [VOLTAGE CRITERIA PLUS LAE OR QRS WIDENING] NONSPECIFIC ST & T-WAVE ABNORMALITY Compared to ECG 08/16/2024 09:47:50 T-wave abnormality now present ST (T wave) deviation no longer present Electronically Signed On 08-16-2024 14:59:31 CDT by Wojciech Siddiqui M.D. [id number] [id number]
[2024-08-16 15:55] LABS: Anion Gap 18.4 (5-19); Blood Urea Nitrogen 30 mg/dL (8-23); Calcium 8.6 mg/dL (8.5-10.5); Carbon Dioxide 26 mmol/L (22-29); Chloride 100 mmol/L (98-107); Creatinine Clr Calc Pharmacy 24.2548; Glucose 165 mg/dL (65-115); Osmolality Calculated 302 mOsm/kg (285-295); Potassium 3.4 mmol/L (3.5-5.1); Sodium 141 mmol/L (136-145)
[2024-08-16] MEDS: morphine 4 mg/mL SDV 1 mL 2 MG IVP ×2 (15:57→21:18)
[2024-08-16 16:04] LABS: Troponin 5 6HR Delta -11.7 ng/L (0-12)
[2024-08-16 16:05] LABS: Troponin 5 6HR 221.3 ng/L (0-10)
--- NOTE | 2024-08-16 16:19 | ECG_ITS ---
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 Measurements Intervals [place] Rate: 58 P: 0 SD: 0 QRS: 47 QRSD: 109 T: 91 QT: 354 QTc: 349 Interpretive Statements Normal Sinus Rhythm POSSIBLE LEFT VENTRICULAR HYPERTROPHY [VOLTAGE CRITERIA PLUS LAE OR QRS WIDENING] NONSPECIFIC ST & T-WAVE ABNORMALITY Compared to ECG 08/16/2024 12:39:40 Sinus rhythm no longer present Sinus arrhythmia no longer present T-wave abnormality still present Baseline artifacts, need to repeat Electronically Signed On 08-17-2024 14:39:30 CDT by Guicho Chavarria M.D. [id number]
[2024-08-16] MEDS: lanolin oint 7 gm 1 APPLIC TOPICAL (17:08)
[2024-08-16] MEDS: enoxaparin 80 mg/0.8 mL Syringe SUBCUT (17:10)
[2024-08-16] MEDS: potassium chloride ER 20 mEq Tablet 40 MEQ PO (19:17)
[2024-08-16] MEDS: ropinirole 0.25 mg Tablet 0.5 MG PO (21:17)
[2024-08-17] VITALS (48 sets, daily range): BP systolic 110–154; BP diastolic 54–77; PULSE 48–84; RESP 13–27; TEMP 36.9; O2SAT 87–99
[2024-08-17] MEDS: piperacillin-tazobactam 3.375 GM in sodium chloride 0.9% (plus) 50 ML IV ×4 (00:42→23:16)
[2024-08-17] MEDS: ipratropium-albuterol 3 mL Neb INHALATION ×4 (02:54→20:19)
[2024-08-17] MEDS: nitroglycerin 1 gm/inch oint Pkt 0.5 INCH TOPICAL ×4 (03:28→21:22)
[2024-08-17] MEDS: methylPREDNISolone sod succ 40 mg/mL INJ IVP ×3 (03:28→21:08)
[2024-08-17 04:51] LABS: Basophils % 0.1 %; Hematocrit 29.1 % (36-47); Lymphocytes # 1.1 10^3/uL (0.8-4.8); Lymphocytes % 6.4 %; Mean Corpuscular HGB Conc 31.3 g/dL (30-55); Mean Corpuscular Hemoglobin 26.3 pg (27-33); Mean Corpuscular Volume 84.1 fl (85-98); Mean Platelet Volume 10.7 fL (7.4-10.4); Monocytes # 1.1 10^3/uL (0.2-0.9); Monocytes % 6.6 %; Neutrophils # 14.21 10^3/uL (1.8-7.7); Neutrophils % 84.9 %; Nucleated Red Blood Cells % 0.2 %; Platelet Count 367 10^3/cmm (157-399); Red Blood Count 3.46 10^6/uL (3.85-5.65); White Blood Count 16.73 10^3/uL (3.29-11.43)
[2024-08-17 05:07] LABS: Alanine Aminotransferase 21 U/L (0-33); Aspartate Amino Transferase 23 U/L (0-32); Carbon Dioxide 27 mmol/L (22-29); Phosphorus 2.7 mg/dL (2.5-4.5); Total Bilirubin 0.3 mg/dL (0.15-1.2)
[2024-08-17] MEDS: levothyroxine 25 mcg Tablet PO (05:14)
[2024-08-17] MEDS: pantoprazole 40 mg SDV IVP ×2 (05:14→16:01)
[2024-08-17] MEDS: iron sucrose 200 MG in sodium chloride 0.9% (100 ml) 100 ML 220 MG IV (05:14)
[2024-08-17] MEDS: morphine 4 mg/mL SDV 1 mL 2 MG IVP ×2 (05:17→23:16)
[2024-08-17 06:03] LABS: Anion Gap 14.9 (5-19); Chloride 104 mmol/L (98-107); Potassium 3.9 mmol/L (3.5-5.1); Sodium 142 mmol/L (136-145)
[2024-08-17 07:44] LABS: Albumin Level 3.6 g/dL (3.5-5.2); Alkaline Phosphatase 68 U/L (35-105); Blood Urea Nitrogen 31 mg/dL (8-23); Calcium 8.6 mg/dL (8.5-10.5); Globulin 2.5 g/dL (1.3-4.6); Glucose 124 mg/dL (65-115); Osmolality Calculated 302 mOsm/kg (285-295); Total Protein 6.1 g/dL (6.6-8.7)
[2024-08-17] MEDS: budesonide 0.5 mg/2 mL Neb INHALATION ×2 (07:53→20:19)
[2024-08-17] MEDS: clopidogrel 75 mg Tablet PO (08:48)
[2024-08-17] MEDS: oxybutynin chloride XL 5 MG TABLET PO (08:49)
[2024-08-17] MEDS: docusate sodium 100 mg Capsule PO (08:49)
[2024-08-17] MEDS: oxybutynin chloride XL 5 MG TABLET 10 MG PO (10:29)
[2024-08-17] MEDS: FUROsemide 10 mg/mL SDV 4mL 40 MG IVP ×2 (10:31→13:32)
--- NOTE | 2024-08-17 10:54 | P.PN_ITS ---
Subjective 2 Subjective: The patient is still short of breath. She is requiring 45% of oxygen. No recurrence of chest pain. Telemetry shows sinus rhythm. She is on Nitropaste 1 inch every 6 hours to anterior chest wall and on subcu Lovenox Medications: Medication Review Details: Current Medications Acetaminophen (Acetaminophen 325 Mg Tablet) 650 mg PO Q6H PRN PRN Reason: Mild/Mod Pain Or Temp >/= 101 Last Admin: 08/15/24 10:36 Dose: 650 mg Albuterol/Ipratropium (Ipratropium-Albuterol 3 Ml Neb) 3 ml INHALATION Q6H.RESP CLAIRE Last Admin: 08/17/24 07:52 Dose: 3 ml Budesonide (Budesonide 0.5 Mg/2 Ml Neb) 0.5 mg INHALATION BID.RESPIRATORY CLAIRE Last Admin: 08/17/24 07:53 Dose: 0.5 mg Clopidogrel Bisulfate (Clopidogrel 75 Mg Tablet) 75 mg PO DAILY CLAIRE Last Admin: 08/17/24 08:48 Dose: 75 mg Docusate Sodium (Docusate Sodium 100 Mg Capsule) 100 mg PO BID CLAIRE Last Admin: 08/17/24 08:49 Dose: 100 mg Enoxaparin Sodium (Enoxaparin 80 Mg/0.8 Ml Syringe) 80 mg SUBCUT Q24H CLARIE Last Admin: 08/16/24 17:10 Dose: 80 mg Norepinephrine Bitartrate (Levophed) 4 mg in 250 mls @ 0 mls/hr IV .Q0M CLAIRE; Protocol Last Titration: 08/16/24 01:20 Dose: 0 mcg/min, 0 mls/hr Piperacillin Sod/Tazobactam (Sod 3.375 gm/ Sodium Chloride) 50 mls @ 12.5 mls/hr IV Q8H CLAIRE; Protocol Last Admin: 08/17/24 08:48 Dose: 12.5 mls/hr Iron Sucrose 200 mg/ Sodium (Chloride) 110 mls @ 220 mls/hr IV Q24H CLAIRE Stop: 08/19/24 06:29 Last Infusion: 08/17/24 06:23 Dose: Infused Lactulose (Lactulose Oral Liq 20 Gm/30 Ml Udc) 10 gm PO DAILY PRN; Protocol PRN Reason: Constipation (see protocol) Lanolin (Lanolin Oint 7 Gm) 1 applic TOPICAL PRN PRN PRN Reason: DRYNESS Last Admin: 08/16/24 17:08 Dose: 1 applic Levothyroxine Sodium (Levothyroxine 25 Mcg Tablet) 25 mcg PO QAM CLAIRE Last Admin: 08/17/24 05:14 Dose: 25 mcg Magnesium Hydroxide (Magnesium Hydroxide 30 Ml Udc) 30 ml PO DAILY PRN; Protocol PRN Reason: Constipation (see protocol) Methylprednisolone Sodium Succinate (Methylprednisolone Sod Succ 40 Mg/Ml Inj) 40 mg IVP Q12H CLAIRE Last Admin: 08/17/24 10:31 Dose: 40 mg Morphine Sulfate (Morphine 4 Mg/Ml Sdv 1 Ml) 2 mg IVP Q4H PRN PRN Reason: SEVERE PAIN Last Admin: 08/17/24 05:17 Dose: 2 mg Nitroglycerin (Nitroglycerin 1 Gm/Inch Oint Pkt) 0.5 inch TOPICAL Q6H CLAIRE Last Admin: 08/17/24 10:31 Dose: 0.5 inch Ondansetron HCl (Ondansetron 2 Mg/Ml Sdv 2 Ml) 4 mg IVP Q6H PRN PRN Reason: vomiting, or N/V if npo Oxybutynin Chloride (Oxybutynin Chloride Xl 5 Mg Tablet) 10 mg PO DAILY [facility] Last Admin: 08/17/24 10:29 Dose: 10 mg Pantoprazole Sodium (Pantoprazole 40 Mg Sdv) 40 mg IVP Q12H CLAIRE Last Admin: 08/17/24 05:14 Dose: 40 mg Ropinirole HCl (Ropinirole 0.25 Mg Tablet) 0.5 mg PO BEDTIME [facility] Last Admin: 08/16/24 21:17 Dose: 0.5 mg Vitals/I&O/Wt Last Vital Signs Temp 97.7 F 08/16/24 04:00 Pulse 68 08/17/24 10:31 Resp 21 H 08/17/24 09:00 BP 144/65 08/17/24 10:31 Pulse Ox 87 L 08/17/24 09:00 O2 Del Method Nasal Cannula 08/17/24 09:00 O2 Flow Rate 2 08/17/24 09:00 FiO2 45 08/17/24 07:56 08/16/24 08/17/24 08/17/24 22:59 06:59 14:59 Intake Total 500 / 950 570 / 1520 Output Total 2400 / 2400 600 / 3000 Balance -1900 / -1450 -30 / -1480 Weight last 48 hrs Weight 191 lb 12.835 oz Weight 191 lb 12.835 oz Weight 192 lb 14.472 oz Weight 192 lb 14.472 oz Physical Exam 2 Narrative: GENERAL: The patient is alert and oriented times three. Not in any acute distress. HEENT: There is minimal pallor. No, icterus or lymphadenopathy.Oral cavity: There are no mucous membrane lesions. NECK: Trachea appears to be central. No masses noted. No JVD or thyromegaly appreciated. RESPIRATORY: Chest is symmetrical. No intercostals muscle retraction or any accessory muscle activation. There is no chest wall tenderness. Breath sounds are heard bilaterally. No rales or rhonchi heard. No evidence of any consolidation. Occasional expiratory wheezing BREASTS: Deferred. HEART: The heart sounds are normal. No S3 or S4. No significant murmurs. No pericardial rub ABDOMEN: No vessel pulsations or distention. No tenderness. No organomegaly appreciated. Bowel sounds are normally heard. : Deferred. RECTAL: Deferred. LYMPHATIC: No lymphadenopathy noted in the neck. EXTREMITIES: No edema or cyanosis. No clubbing. MUSCULOSKELETAL: No acute joint deformities or swelling SKIN: There are no significant rashes or ecchymosis NEUROPSYCHIATRIC: The patient is alert and oriented x3. Appears to be in a good mood. No tremors or rigidity noted. Urinary Catheter Management: Marinelli: Cath Placed During This Visit: yes Reason for Continuing Indwelling Catheter: Accurate Measurement of Urinary Output in Critically Ill Patients Urinary Catheter Date of Insertion: 08/14/24 Urinary Catheter Time of Insertion: 15:17 Data 08/17/24 04:16 08/17/24 04:16 Other Labs: Laboratory Last Values WBC 16.73 10^3/uL (3.29-11.43) H 08/17/24 04:16 RBC 3.46 10^6/uL (3.85-5.65) L 08/17/24 04:16 Hgb 9.10 g/dL (11.27-16.99) L 08/17/24 04:16 Hct 29.1 % (36-47) L 08/17/24 04:16 MCV 84.1 fl (85-98) L 08/17/24 04:16 MCH 26.3 pg (27-33) L 08/17/24 04:16 MCHC 31.3 g/dL (30-55) 08/17/24 04:16 RDW 14.0 % (12.1-15.1) 08/17/24 04:16 Plt Count 367 10^3/cmm (157-399) 08/17/24 04:16 MPV 10.7 fL (7.4-10.4) H 08/17/24 04:16 Neut % (Auto) 84.9 % 08/17/24 04:16 Lymph % (Auto) 6.4 % 08/17/24 04:16 [place] % (Auto) 6.6 % 08/17/24 04:16 Eos % (Auto) 0.0 % 08/17/24 04:16 Baso % (Auto) 0.1 % 08/17/24 04:16 Neut # (Auto) 14.21 10^3/uL (1.8-7.7) H 08/17/24 04:16 Lymph # (Auto) 1.1 10^3/uL (0.8-4.8) 08/17/24 04:16 [place] # (Auto) 1.1 10^3/uL (0.2-0.9) H 08/17/24 04:16 Eos # (Auto) 0.0 10^3/uL (0.0-0.8) 08/17/24 04:16 Baso # (Auto) 0.0 10^3/uL (0.0-0.1) 08/17/24 04:16 Nucleated RBC % (auto) 0.2 % 08/17/24 04:16 Nucleated RBCs # 0.0 /100WBC 08/17/24 04:16 D-Dimer 0.48 ug/mLFEU (0-0.59) 08/14/24 12:30 Specimen Type Arterial 08/15/24 12:40 Sample Site Radial, right 08/15/24 12:40 ABG pH 7.37 (7.35-7.45) 08/15/24 12:40 ABG pCO2 40.8 mmHg (35-45) 08/15/24 12:40 ABG pO2 51.9 mmHg (80.0-100.0) L 08/15/24 12:40 ABG PO2/FiO2 Ratio 162 08/15/24 12:40 ABG HCO3 23.6 mmol/L (22-26) 08/15/24 12:40 ABG O2 Saturation 86.1 08/15/24 12:40 ABG Base Excess -1.6 mmol/L (-2.0-2.0) 08/15/24 12:40 Satnam Test Pos 08/15/24 12:40 A-a O2 Gradient 16.4 mmHg (5-10) H 08/15/24 12:40 Hematocrit 24.3 % (37-47) L 08/15/24 12:40 Hgb O2 Saturation 83.6 % (95-100) L 08/15/24 12:40 Carboxyhemoglobin 1.3 %THgb (0.4-20.1) 08/15/24 12:40 Methemoglobin 1.6 % (0.4-1.5) H 08/15/24 12:40 Total Hemoglobin 7.9 g/dL (12-16) L 08/15/24 12:40 Sodium 141.0 mmol/L (131-143) 08/15/24 12:40 Potassium 3.7 mmol/L (3.5-5.0) 08/15/24 12:40 Glucose 157.0 mg/dL (70-115) H 08/15/24 12:40 Ionized Calcium 1.1 mmol/L (1.1-1.4) 08/15/24 12:40 O2 Delivery Device Nc 08/15/24 12:40 O2 Liters/Min 3.0 % 08/15/24 12:40 FiO2 32.0 % 08/15/24 12:40 Tidal Volume 0.46 08/14/24 15:45 PEEP 8.0 cmH20 08/14/24 15:45 Credit Review Manager ID Gd 08/15/24 12:40 Sodium 142 mmol/L (136-145) 08/17/24 04:16 Potassium 3.9 mmol/L (3.5-5.1) 08/17/24 04:16 Chloride 104 mmol/L (98-107) 08/17/24 04:16 Carbon Dioxide 27 mmol/L (22-29) 08/17/24 04:16 Anion Gap 14.9 (5-19) 08/17/24 04:16 BUN 31 mg/dL (8-23) H 08/17/24 04:16 Creatinine 1.7 mg/dL (0.5-0.9) H 08/17/24 04:16 GFR Calculation Not Reportable 08/17/24 04:16 Glucose 124 mg/dL (65-115) H 08/17/24 04:16 Estimat Average Glucose 120 08/14/24 12:30 Hemoglobin A1c 5.8 % (4.0-6.0) 08/14/24 12:30 Calculated Osmolality 302 mOsm/kg (285-295) H 08/17/24 04:16 Lactic Acid 2.0 mmol/L (0.5-2.2) 08/15/24 03:55 Lactic Acid (Sepsis) 3.5 mmol/L (0.5-2.2) H 08/14/24 15:13 Calcium 8.6 mg/dL (8.5-10.5) 08/17/24 04:16 Phosphorus 2.7 mg/dL (2.5-4.5) 08/17/24 04:16 Magnesium 2.0 mg/dL (1.7-2.3) 08/17/24 04:16 Iron 12 ug/dL (37-145) L 08/14/24 16:19 TIBC 366 mcg/dl 08/14/24 16:19 % Saturation 3.2 % (20-50) L 08/14/24 16:19 Unsat Iron Binding 354 ug/dL (112-347) H 08/14/24 16:19 Total Bilirubin 0.3 mg/dL (0.15-1.2) 08/17/24 04:16 AST 23 U/L (0-32) 08/17/24 04:16 ALT 21 U/L (0-33) 08/17/24 04:16 Alkaline Phosphatase 68 U/L (35-105) 08/17/24 04:16 Troponin T Baseline 233 ng/L (0-10) H* 08/16/24 09:59 Troponin T 120 Minute 223.1 ng/L (0-10) H 08/16/24 11:47 Delta Troponin T -9.9 ABS# (0-10) L 08/16/24 11:47 Troponin T Hi Sens 6Hr 221.3 ng/L (0-10) H 08/16/24 15:22 Troponin T Hi Sens 6Hr Delta -11.7 ng/L (0-12) L 08/16/24 15:22 Total Protein 6.1 g/dL (6.6-8.7) L 08/17/24 04:16 Albumin 3.6 g/dL (3.5-5.2) 08/17/24 04:16 Globulin 2.5 g/dL (1.3-4.6) 08/17/24 04:16 Triglycerides 78 mg/dL (0-150) 08/15/24 03:55 Cholesterol 146 mg/dL (0-200) 08/15/24 03:55 LDL Cholesterol, Calc 93 mg/dL (50-129) 08/15/24 03:55 HDL Cholesterol 37 mg/dL (60-100) L 08/15/24 03:55 LDL/HDL Ratio 2.51 RATIO (0.00-3.22) 08/15/24 03:55 Cholesterol/HDL Ratio 3.95 mg/dL (0.0-4.40) 08/15/24 03:55 Lipase 76 U/L (13-60) H 08/14/24 12:30 Vitamin B12 474 pg/mL (232-1245) 08/14/24 16:19 Folate 8.0 ng/mL (4.8-37.3) 08/15/24 03:55 Procalcitonin 0.32 ng/mL (0-0.5) 08/15/24 03:55 TSH 8.70 uIU/mL (0.27-4.20) H 08/14/24 16:19 Free T4 1.20 ng/dL (0.82-1.77) 08/15/24 03:55 Free T3 1.7 PG/ML (2.0-4.4) L 08/15/24 03:55 Urine Color Yellow (Yellow) 08/14/24 15:15 Urine Appearance Turbid (CLEAR) A 08/14/24 15:15 Urine pH 5.0 (5-7) 08/14/24 15:15 Ur Specific [place] 1.020 (1.005-1.030) 08/14/24 15:15 Urine Protein 2+ (Negative) A 08/14/24 15:15 Urine Glucose (UA) Trace (Normal) H 08/14/24 15:15 Urine Ketones Trace (Negative) 08/14/24 15:15 Urine Blood Trace (Negative) A 08/14/24 15:15 Urine Nitrate Negative (Negative) 08/14/24 15:15 Urine Bilirubin Negative (Negative) 08/14/24 15:15 Urine Urobilinogen 1.0 mg/dL (Negative) 08/14/24 15:15 Ur Leukocyte Esterase 2+ (Negative) A 08/14/24 15:15 Urine RBC 21-50 /hpf (0-2) H 08/14/24 15:15 Urine WBC >100 /hpf (0-5) H 08/14/24 15:15 Ur Squamous Epith Cells 6-10 /hpf (0-5) 08/14/24 15:15 Amorphous Sediment Trace /hpf 08/14/24 15:15 Urine Bacteria Trace /hpf (NONE) 08/14/24 15:15 Hyaline Casts 88.53 /lpf 08/14/24 15:15 Ur Oval Fat Bodies 1+ /hpf 08/14/24 15:15 Nasal MRSA (PCR) Not detected (Not Detecte) 08/14/24 17:45 Salicylates < 0.3 mg/dL (3-10) L 08/14/24 12:30 Urine Opiates Screen Positive ng/mL (Negative) H 08/14/24 15:15 Acetaminophen < 5.0 ug/mL (10-30) L 08/14/24 12:30 Ur Barbiturates Screen Negative ng/mL (Negative) 08/14/24 15:15 Ur Phencyclidine Scrn Negative ng/mL (Negative) 08/14/24 15:15 Ur Amphetamines Screen Negative ng/mL (Negative) 08/14/24 15:15 U Benzodiazepines Scrn Negative ng/mL (Negative) 08/14/24 15:15 Urine Cocaine Screen Negative ng/mL (Negative) 08/14/24 15:15 U Marijuana (THC) Screen Negative ng/mL (Negative) 08/14/24 15:15 Ethyl Alcohol < 10 mg/dL (0-10) 08/14/24 12:30 Serum Ketones Negative (Negative) 08/14/24 17:20 Blood Type A Positive 08/15/24 12:55 Rho(D) Type Rh positive 08/15/24 12:55 Antibody Screen Negative 08/15/24 12:55 Crossmatch See Detail 08/15/24 12:55 Micro: Microbiology 08/14/24 15:15 Urine Culture - Final Urine,Clean Catch A&P Assessment and plan (1) Atherosclerotic heart disease of [place] coronary artery with unstable angina pectoris: The patient is her clinical features may suggest new onset angina. EKG changes suggest anterolateral/inferior wall ischemia. Hemodynamically she seems to be stable. Possibility of restenosis versus progression of disease in the other vessels are considerations. Will continue on the current medications. May consider doing a repeat cardiac catheterization once her respiratory status is stable and infection is under control. May continue on the current medications at this point (2) CHF (congestive heart failure): I may go ahead and give her 3 more doses of Lasix and potassium every 8 hours. Repeat BMP in the morning (3) Bilateral carotid artery stenosis: Patient is seems to be stable. Will continue on the current management (4) Mixed dyslipidemia: May continue on the current medications. (5) History of pulmonary embolism: Patient is on long-term oral anticoagulation. May continue the current anticoagulation with Lovenox till we do the cardiac catheterization (6) Respiratory acidosis with metabolic acidosis: This could be multifactorial. COPD exacerbation/congestive heart failure/sepsis are contributing factor Clinically the patient is improving. (7) Acute kidney injury superimposed on chronic kidney disease: Currently the kidney function seems to be fairly stable. Will continue the close monitoring Plan Other problems are Hypercapnic respiratory failure, currently has improved Anemia, stable Urosepsis, improving We will continue on the current management. Closely monitor the oxygenation and the kidney function Based on the clinical progress, further management decisions will be made PDMP PDMP Reviewed: Not Reviewed Attestations 2 Medical Necessity Statement*: Patient requires continued hospital stay for close monitoring and further management Coding Level of Care Code 72341 Diagnoses Atherosclerosis of [place] coronary artery of [place] heart with unstable angina pectoris I25.110 [place] vs. transplanted heart: [place] heart Acute on chronic diastolic congestive heart failure I50.33 Heart failure type: diastolic Heart failure chronicity: acute on chronic Bilateral carotid artery stenosis I65.23 Mixed dyslipidemia E78.2 History of pulmonary embolism Z86.711 Respiratory acidosis with metabolic acidosis E87.4 Acute kidney injury superimposed on chronic kidney disease N17.9; N18.9
[2024-08-17] MEDS: potassium chloride ER 20 mEq Tablet PO (13:32)
--- NOTE | 2024-08-17 13:38 | P.PN_ITS ---
Subjective 2 Subjective: No acute vents overnight. Today morning seen sitting up in bed. States she is feeling slightly better. No further chest pain. Denies any further dysuria. Currently on 45 L 45%. Blood pressure is better controlled. Vitals/I&O/Wt Last Vital Signs Temp 97.7 F 08/16/24 04:00 Pulse 69 08/17/24 11:19 Resp 18 08/17/24 11:19 BP 144/65 08/17/24 10:31 Pulse Ox 92 08/17/24 11:19 O2 Del Method Nasal Cannula 08/17/24 09:00 O2 Flow Rate 40 08/17/24 11:19 FiO2 50 08/17/24 11:19 08/16/24 08/17/24 08/17/24 22:59 06:59 14:59 Intake Total 500 / 950 570 / 1520 170 / 170 Output Total 2400 / 2400 600 / 3000 950 / 950 Balance -1900 / -1450 -30 / -1480 -780 / -780 Weight last 48 hrs Weight 87 kg Weight 87 kg Weight 87.5 kg Weight 87.5 kg Physical Exam 2 Narrative: General: No acute distress, AO x3, pallor present, sick appearing, pleasant HEENT: PERRLA, pupils bilaterally equal and reactive Chest: Bilateral bronchial breath sounds all over lung rai with occasional rhonchi CVS: S1-S2 regular, no murmurs, no tachycardia, no gallops, no rubs Abdomen: Soft, nontender, no organomegaly, bowel sounds present Neuro: No focal deficits, no facial deformity, AO x3, power 5/5 in all limbs Urinary Catheter Management: Marinelli: Cath Placed During This Visit: yes Reason for Continuing Indwelling Catheter: Accurate Measurement of Urinary Output in Critically Ill Patients Urinary Catheter Date of Insertion: 08/14/24 Urinary Catheter Time of Insertion: 15:17 Data 08/17/24 04:16 08/17/24 04:16 Micro: Microbiology 08/14/24 15:15 Urine Culture - Final Urine,Clean Catch A&P Assessment and plan (1) Septic shock: Resolved. Keep mean arterial pressure 65. Levophed weaned off. IV fluid with bicarb drip at 100 cc/h. F/u blood culture,appreciated trend procalcitonin, negative MRSA swab,f/u urine culture. C/w IV Zosyn. De-escalate as per culture sensitivities. White count elevated again today most likely in setting of steroids. Check stool studies. (2) Acute hypoxic on chronic hypercapnic respiratory failure: In setting of congestive heart failure. Oxygen supplementation keeping saturation over 88%. Wean accordingly.Currently on heated high flow. Being weaned down. Out of bed to chair. Aggressive pulmonary toilet. Pulmicort twice daily, DuoNeb every 6 hour. Wean Solu-Medrol to 40 mg every 12 hourly. (3) NSTEMI (non-ST elevated myocardial infarction): Patient having new chest pain today. Baseline troponin 233. Appreciate EKG showing ST depression in V3-V6. Repeat baseline troponin now 233. Trending down. Baseline troponin on admission 24 with troponin plateauing to 40 at that time. Patient already on full dose Lovenox 1 mg/kg body weight daily as per creatinine clearance. Continue with Plavix 75 mg daily, atorvastatin 10 mg daily. Patient allergic to aspirin. Cannot use beta-joaquin given bradycardia and heart rate dropping down to 31 time during hospitalization. Nitropaste half inch. Monitor blood pressures. Patient not a good candidate for angiogram for now given advanced age, worsening creatinine though if continues to have chest pain might need cardiac angiogram. Echocardiogram done this admission negative for RWMA. Can repeat limited echo for regional wall motion abnormality and EF. Last cardiac angiogram from 07/27 showed left main having mild to moderate disease, LAD tortuous with mild to moderate diffuse disease, LCx diffuse mild to moderate disease, ostial RCA with 70% stenosis, mid right RCA 90% stenosis. Patient underwent mid RCA revascularization with PCI, ostial RCA revascularization with PCI. (4) CHF (congestive heart failure): Echocardiogram done shows normal EF with grade 3 diastolic dysfunction with moderate LVH. Concerns for acute decompensated diastolic heart failure. Appreciate urine output. Will change Lasix to 40 mg twice daily. Will have to monitor renal function closely as patient had a robust urine response to Lasix on previous occasion in last 24 hours. Strict input charting, daily weights. Fluid restriction of less than 1500 cc. Hold off on diuresis for now given mild GERARDO. (5) GERARDO (acute kidney injury): Most likely in setting of septic shock. Baseline creatinine 1-1.4. Creatinine stabilizing to 1.7 today. Medical reconciliation done for nephrotoxic drugs. Repeat BMP in afternoon. Monitor urine output. CT on pelvis negative for obstructive nephropathy. Hold off on any further IV diuresis and fluids for now. Monitor renal functions daily. (6) Atrial fibrillation with slow ventricular response: (7) Coronary artery disease: History of CAD with PCI. Appreciate A1c, lipid panel. Continue with home dose of Plavix, statin. Troponin cycle appreciated and negative on admission. (8) Hypercapnic respiratory failure: Hypercapnic respiratory failure is resolved. Further treatment as above. (9) Respiratory acidosis with metabolic acidosis: On admission she had metabolic and respiratory in setting of hypercapnia and elevated lactate. Unlikely DKA. Negative ketones. Resolved. (10) UTI (urinary tract infection): (11) Iron deficiency anemia: Baseline hemoglobin seems to be in mid 9s. Target hemoglobin over 8. Post 1 unit of blood transfusion. Continue with IV iron supplementation. (12) HTN (hypertension): Goal blood pressure less than 140/90 mmHg with mean over 65. Hold off on antihypertensive. Takes metoprolol 25 mg along with losartan 50 mg daily at home. (13) Lactic acid acidosis: (14) Type 2 diabetes mellitus: Ruled out. A1c of 5.8. Insulin sliding scale low-dose protocol. Hypoglycemia protocol (15) History of pulmonary embolism: Currently normal D-dimer. No concerns for PE. Switch from home dose of Eliquis 2.5 mg twice daily to Lovenox 1 mg/kg body weight daily as per creatinine clearance Plan Bradycardia: Heart rate dropping down to high 20s to mid 30s yesterday. 1 episode. Could be in setting of severe metabolic acidosis. Patient does take beta-joaquin at home. Hold off on metoprolol for now. Telemetry. CODE STATUS: Discussed in detail with the patient. She is okay with chest compression but does not want mechanical ventilation. She is worried if she goes on mechanical ventilator she will be ventilator dependent. CODE STATUS changed to limited resuscitation only. Cardiac diet Protonix will be sufficient for PUD prophylaxis Full dose Lovenox with sufficient for DVT prophylaxis PDMP PDMP Reviewed: Not Reviewed Attestations 2 Medical Necessity Statement*: Require further hospitalization for management of acute hypoxic respiratory failure in setting of congestive heart failure, COPD exacerbation, non-ST elevation [place], sepsis in setting of UTI Critical Care Time: The high probability of a clinically significant, sudden or life threatening deterioration of the patient's [cardiac, renal, pulmonary] system(s) required my full and direct attention, intervention and personal management. The critical care time is as shown. This time is in addition to time spent performing any reported procedures but includes the following: [x] Data and vital sign review and interpretation [x] Patient assessment, examination and intervention [x] Documentation [x] Medication orders and management Critical Care Time (min): 90 Coding Level of Care Code Critical Care >/= 30 minutes Critical care time (in minutes): 90 The high probability of a clinically significant, sudden or life threatening deterioration, as referenced in this documentation, required my full and direct attention, intervention and personal management. The critical care time shown is in addition to time spent performing any reported separately billable procedures and includes the following: [x] Data and vital sign review and interpretation [x ] Patient assessment, examination and intervention [x] Medication orders and management [x] Patient/Family updates as able [x] Care Coordination and Documentation. Other Coding Information This patient has a high probability of clinically significant, sudden or life threatening deterioration of the patient's (neurological/pulmonary/cardiac/renal/ID/endocrine) systems required my full, direct attention, the highest level of physician preparedness for urgent intervention and personal management. I managed/supervised life or organ supporting interventions that required frequent physician assessment. I devoted my full attention in the ICU to the direct care of this patient for the period of time indicated above. Time I spent with family or surrogate(s) is included only if the patient was incapable of providing necessary information or participating in decision making. This time includes the following services provided: Telemetry review Nonmechanical ventilation Hemodynamic interpretation, assessment and management Review and interpretation of CXR Review and interpretation of lab values Review and interpretation of microbiologic data and culture results Review of medications and administration Review and interpretation of Nutrition requirements and management Discussion of management with other consultants and services Clinical update to family members Diagnoses Septic shock A41.9; R65.21 Acute hypoxic on chronic hypercapnic respiratory failure J96.01; J96.12 NSTEMI (non-ST elevated myocardial infarction) I21.4 Acute on chronic diastolic congestive heart failure I50.33 Heart failure type: diastolic Heart failure chronicity: acute on chronic GERARDO (acute kidney injury) N17.9 Atrial fibrillation with slow ventricular response I48.91 Coronary artery disease involving [place] coronary artery of [place] heart without angina pectoris I25.10 Coronary Disease-Associated Artery/Lesion type: [place] artery [place] vs. transplanted heart: [place] heart Associated angina: without angina Hypercapnic respiratory failure J96.92 Respiratory acidosis with metabolic acidosis E87.4 Urinary tract infection with hematuria, site unspecified N39.0; R31.9 Urinary tract infection type: site unspecified Hematuria presence: with hematuria Iron deficiency anemia, unspecified iron deficiency anemia type D50.9 Iron deficiency anemia type: unspecified iron deficiency Primary hypertension I10 Hypertension type: primary hypertension Lactic acid acidosis E87.20 Type 2 diabetes mellitus E11.9 History of pulmonary embolism Z86.711
[2024-08-17 13:41] LABS: C.Diff PCR (Lab) NEGATIVE (Negative)
[2024-08-17 15:23] LABS: Blood Urea Nitrogen 31 mg/dL (8-23); Calcium 8.9 mg/dL (8.5-10.5); Carbon Dioxide 23 mmol/L (22-29); Chloride 102 mmol/L (98-107); Glucose 213 mg/dL (65-115); Osmolality Calculated 307 mOsm/kg (285-295); Sodium 142 mmol/L (136-145)
[2024-08-17] MEDS: enoxaparin 80 mg/0.8 mL Syringe SUBCUT (18:19)
[2024-08-17] MEDS: ropinirole 0.25 mg Tablet 0.5 MG PO (21:09)
[2024-08-18] VITALS (58 sets, daily range): BP systolic 117–161; BP diastolic 58–95; PULSE 50–90; RESP 15–32; TEMP 36.3–36.7; O2SAT 86–98
[2024-08-18] MEDS: cetylpyridinium Lozenge 1 EACH MUCOUS MEM (02:24)
[2024-08-18] MEDS: ipratropium-albuterol 3 mL Neb INHALATION ×4 (02:51→22:44)
[2024-08-18] MEDS: iron sucrose 200 MG in sodium chloride 0.9% (100 ml) 100 ML 220 MG IV (05:06)
[2024-08-18] MEDS: pantoprazole 40 mg SDV IVP ×2 (05:07→17:06)
[2024-08-18] MEDS: nitroglycerin 1 gm/inch oint Pkt 0.5 INCH TOPICAL ×4 (05:07→21:52)
[2024-08-18] MEDS: levothyroxine 25 mcg Tablet PO (05:07)
[2024-08-18 05:17] LABS: Basophils % 0.3 %; Hematocrit 32.5 % (36-47); Lymphocytes # 1.2 10^3/uL (0.8-4.8); Mean Corpuscular HGB Conc 31.1 g/dL (30-55); Mean Corpuscular Hemoglobin 26.3 pg (27-33); Mean Corpuscular Volume 84.6 fl (85-98); Mean Platelet Volume 10.7 fL (7.4-10.4); Monocytes # 0.8 10^3/uL (0.2-0.9); Monocytes % 6.1 %; Neutrophils # 10.87 10^3/uL (1.8-7.7); Neutrophils % 80.5 %; Nucleated Red Blood Cells # 0.1 /100WBC; Nucleated Red Blood Cells % 0.4 %; Platelet Count 377 10^3/cmm (157-399); Red Blood Count 3.84 10^6/uL (3.85-5.65); Red Cell Distribution Width 14.1 % (12.1-15.1); White Blood Count 13.52 10^3/uL (3.29-11.43)
[2024-08-18 05:33] LABS: Alanine Aminotransferase 104 U/L (0-33); Albumin Level 3.8 g/dL (3.5-5.2); Alkaline Phosphatase 95 U/L (35-105); Aspartate Amino Transferase 73 U/L (0-32); Blood Urea Nitrogen 35 mg/dL (8-23); Calcium 8.8 mg/dL (8.5-10.5); Carbon Dioxide 27 mmol/L (22-29); Chloride 102 mmol/L (98-107); Creatinine Clr Calc Pharmacy 25.5236; Globulin 2.7 g/dL (1.3-4.6); Glucose 146 mg/dL (65-115); Osmolality Calculated 303 mOsm/kg (285-295); Sodium 141 mmol/L (136-145); Total Bilirubin 0.4 mg/dL (0.15-1.2); Total Protein 6.5 g/dL (6.6-8.7)
[2024-08-18] MEDS: budesonide 0.5 mg/2 mL Neb INHALATION ×2 (07:45→22:44)
[2024-08-18] MEDS: piperacillin-tazobactam 3.375 GM in sodium chloride 0.9% (plus) 50 ML IV ×2 (08:19→17:07)
[2024-08-18] MEDS: methylPREDNISolone sod succ 40 mg/mL INJ IVP (08:21)
[2024-08-18] MEDS: oxybutynin chloride XL 5 MG TABLET 10 MG PO (08:22)
[2024-08-18] MEDS: clopidogrel 75 mg Tablet PO (08:22)
--- NOTE | 2024-08-18 09:25 | P.PN_ITS ---
Subjective 2 Subjective: Patient is feeling much better. Her oxygen requirement is 2 L/min by nasal cannula at this point, similar to the requirement at home. Denies any fever or chills. No cough. Overall status seems to be improving. Medications: Medication Review Details: Current Medications Acetaminophen (Acetaminophen 325 Mg Tablet) 650 mg PO Q6H PRN PRN Reason: Mild/Mod Pain Or Temp >/= 101 Last Admin: 08/15/24 10:36 Dose: 650 mg Albuterol/Ipratropium (Ipratropium-Albuterol 3 Ml Neb) 3 ml INHALATION Q6H.RESP CLAIRE Last Admin: 08/18/24 07:45 Dose: 3 ml Benzocaine (Cetylpyridinium Lozenge) 1 each MUCOUS MEM Q2H PRN PRN Reason: SORE THROAT Last Admin: 08/18/24 02:24 Dose: 1 each Budesonide (Budesonide 0.5 Mg/2 Ml Neb) 0.5 mg INHALATION BID.RESPIRATORY CLAIRE Last Admin: 08/18/24 07:45 Dose: 0.5 mg Clopidogrel Bisulfate (Clopidogrel 75 Mg Tablet) 75 mg PO DAILY CLAIRE Last Admin: 08/18/24 08:22 Dose: 75 mg Docusate Sodium (Docusate Sodium 100 Mg Capsule) 100 mg PO BID PRN PRN Reason: Constipation Enoxaparin Sodium (Enoxaparin 80 Mg/0.8 Ml Syringe) 80 mg SUBCUT Q24H CLAIRE Last Admin: 08/17/24 18:19 Dose: 80 mg Furosemide (Furosemide 10 Mg/Ml Sdv 4ml) 40 mg IVP Q8H CLAIRE Stop: 08/18/24 12:30 Last Admin: 08/17/24 13:32 Dose: 40 mg Norepinephrine Bitartrate (Levophed) 4 mg in 250 mls @ 0 mls/hr IV .Q0M CLAIRE; Protocol Last Titration: 08/16/24 01:20 Dose: 0 mcg/min, 0 mls/hr Piperacillin Sod/Tazobactam (Sod 3.375 gm/ Sodium Chloride) 50 mls @ 12.5 mls/hr IV Q8H CLAIRE; Protocol Last Admin: 08/18/24 08:19 Dose: 12.5 mls/hr Iron Sucrose 200 mg/ Sodium (Chloride) 110 mls @ 220 mls/hr IV Q24H CLAIRE Stop: 08/19/24 06:29 Last Infusion: 08/18/24 08:22 Dose: Infused Lactulose (Lactulose Oral Liq 20 Gm/30 Ml Udc) 10 gm PO DAILY PRN; Protocol PRN Reason: Constipation (see protocol) Lanolin (Lanolin Oint 7 Gm) 1 applic TOPICAL PRN PRN PRN Reason: DRYNESS Last Admin: 08/16/24 17:08 Dose: 1 applic Levothyroxine Sodium (Levothyroxine 25 Mcg Tablet) 25 mcg PO QAM CLAIRE Last Admin: 08/18/24 05:07 Dose: 25 mcg Magnesium Hydroxide (Magnesium Hydroxide 30 Ml Udc) 30 ml PO DAILY PRN; Protocol PRN Reason: Constipation (see protocol) Methylprednisolone Sodium Succinate (Methylprednisolone Sod Succ 40 Mg/Ml Inj) 40 mg IVP Q12H CLAIRE Last Admin: 08/18/24 08:21 Dose: 40 mg Morphine Sulfate (Morphine 4 Mg/Ml Sdv 1 Ml) 2 mg IVP Q4H PRN PRN Reason: SEVERE PAIN Last Admin: 08/17/24 23:16 Dose: 2 mg Nitroglycerin (Nitroglycerin 1 Gm/Inch Oint Pkt) 0.5 inch TOPICAL Q6H CLAIRE Last Admin: 08/18/24 05:07 Dose: 0.5 inch Ondansetron HCl (Ondansetron 2 Mg/Ml Sdv 2 Ml) 4 mg IVP Q6H PRN PRN Reason: vomiting, or N/V if npo Oxybutynin Chloride (Oxybutynin Chloride Xl 5 Mg Tablet) 10 mg PO DAILY CLAIRE Last Admin: 08/18/24 08:22 Dose: 10 mg Pantoprazole Sodium (Pantoprazole 40 Mg Sdv) 40 mg IVP Q12H CLAIRE Last Admin: 08/18/24 05:07 Dose: 40 mg Potassium Chloride (Potassium Chloride Er 20 Meq Tablet) 20 meq PO BID CLAIRE Stop: 08/18/24 12:30 Last Admin: 08/17/24 18:18 Dose: Not Given Ropinirole HCl (Ropinirole 0.25 Mg Tablet) 0.5 mg PO BEDTIME CLAIRE Last Admin: 08/17/24 21:09 Dose: 0.5 mg Vitals/I&O/Wt Last Vital Signs Temp 97.6 F 08/18/24 08:00 Pulse 81 08/18/24 09:00 Resp 32 H 08/18/24 09:00 BP 156/77 08/18/24 09:00 Pulse Ox 91 08/18/24 09:00 O2 Del Method Nasal Cannula 08/18/24 08:00 O2 Flow Rate 3 08/18/24 08:00 FiO2 45 08/17/24 20:20 08/17/24 08/18/24 08/18/24 22:59 06:59 14:59 Intake Total 650 / 820 290 / 1110 110 / 110 Output Total 1750 / 2700 1200 / 3900 Balance -1100 / -1880 -910 / -2790 110 / 110 Weight last 48 hrs Weight 187 lb 6.287 oz Weight 182 lb 15.739 oz Weight 191 lb 12.835 oz Weight 191 lb 12.835 oz Physical Exam 2 Narrative: GENERAL: The patient is alert and oriented times three. Not in any acute distress. HEENT: There is minimal pallor. No, icterus or lymphadenopathy.Oral cavity: There are no mucous membrane lesions. NECK: Trachea appears to be central. No masses noted. No JVD or thyromegaly appreciated. RESPIRATORY: Chest is symmetrical. No intercostals muscle retraction or any accessory muscle activation. There is no chest wall tenderness. Breath sounds are heard bilaterally. No rales or rhonchi heard. No evidence of any consolidation. Occasional expiratory wheezing BREASTS: Deferred. HEART: The heart sounds are normal. No S3 or S4. No significant murmurs. No pericardial rub ABDOMEN: No vessel pulsations or distention. No tenderness. No organomegaly appreciated. Bowel sounds are normally heard. : Deferred. RECTAL: Deferred. LYMPHATIC: No lymphadenopathy noted in the neck. EXTREMITIES: No edema or cyanosis. No clubbing. MUSCULOSKELETAL: No acute joint deformities or swelling SKIN: There are no significant rashes or ecchymosis NEUROPSYCHIATRIC: The patient is alert and oriented x3. Appears to be in a good mood. No tremors or rigidity noted. Urinary Catheter Management: Marinelli: Cath Placed During This Visit: yes Reason for Continuing Indwelling Catheter: Accurate Measurement of Urinary Output in Critically Ill Patients Urinary Catheter Date of Insertion: 08/14/24 Urinary Catheter Time of Insertion: 15:17 Data 08/18/24 04:14 08/18/24 04:14 Other Labs: Laboratory Last Values WBC 13.52 10^3/uL (3.29-11.43) H 08/18/24 04:14 RBC 3.84 10^6/uL (3.85-5.65) L 08/18/24 04:14 Hgb 10.10 g/dL (11.27-16.99) L 08/18/24 04:14 Hct 32.5 % (36-47) L 08/18/24 04:14 MCV 84.6 fl (85-98) L 08/18/24 04:14 MCH 26.3 pg (27-33) L 08/18/24 04:14 MCHC 31.1 g/dL (30-55) 08/18/24 04:14 RDW 14.1 % (12.1-15.1) 08/18/24 04:14 Plt Count 377 10^3/cmm (157-399) 08/18/24 04:14 MPV 10.7 fL (7.4-10.4) H 08/18/24 04:14 Neut % (Auto) 80.5 % 08/18/24 04:14 Lymph % (Auto) 9.0 % 08/18/24 04:14 [place] % (Auto) 6.1 % 08/18/24 04:14 Eos % (Auto) 0.0 % 08/18/24 04:14 Baso % (Auto) 0.3 % 08/18/24 04:14 Neut # (Auto) 10.87 10^3/uL (1.8-7.7) H 08/18/24 04:14 Lymph # (Auto) 1.2 10^3/uL (0.8-4.8) 08/18/24 04:14 [place] # (Auto) 0.8 10^3/uL (0.2-0.9) 08/18/24 04:14 Eos # (Auto) 0.0 10^3/uL (0.0-0.8) 08/18/24 04:14 Baso # (Auto) 0.0 10^3/uL (0.0-0.1) 08/18/24 04:14 Nucleated RBC % (auto) 0.4 % 08/18/24 04:14 Nucleated RBCs # 0.1 /100WBC 08/18/24 04:14 D-Dimer 0.48 ug/mLFEU (0-0.59) 08/14/24 12:30 Specimen Type Arterial 08/15/24 12:40 Sample Site Radial, right 08/15/24 12:40 ABG pH 7.37 (7.35-7.45) 08/15/24 12:40 ABG pCO2 40.8 mmHg (35-45) 08/15/24 12:40 ABG pO2 51.9 mmHg (80.0-100.0) L 08/15/24 12:40 ABG PO2/FiO2 Ratio 162 08/15/24 12:40 ABG HCO3 23.6 mmol/L (22-26) 08/15/24 12:40 ABG O2 Saturation 86.1 08/15/24 12:40 ABG Base Excess -1.6 mmol/L (-2.0-2.0) 08/15/24 12:40 Satnam Test Pos 08/15/24 12:40 A-a O2 Gradient 16.4 mmHg (5-10) H 08/15/24 12:40 Hematocrit 24.3 % (37-47) L 08/15/24 12:40 Hgb O2 Saturation 83.6 % (95-100) L 08/15/24 12:40 Carboxyhemoglobin 1.3 %THgb (0.4-20.1) 08/15/24 12:40 Methemoglobin 1.6 % (0.4-1.5) H 08/15/24 12:40 Total Hemoglobin 7.9 g/dL (12-16) L 08/15/24 12:40 Sodium 141.0 mmol/L (131-143) 08/15/24 12:40 Potassium 3.7 mmol/L (3.5-5.0) 08/15/24 12:40 Glucose 157.0 mg/dL (70-115) H 08/15/24 12:40 Ionized Calcium 1.1 mmol/L (1.1-1.4) 08/15/24 12:40 O2 Delivery Device Nc 08/15/24 12:40 O2 Liters/Min 3.0 % 08/15/24 12:40 FiO2 32.0 % 08/15/24 12:40 Tidal Volume 0.46 08/14/24 15:45 PEEP 8.0 cmH20 08/14/24 15:[address] Justice ID Gd 08/15/24 12:40 Sodium 141 mmol/L (136-145) 08/18/24 04:14 Potassium 4.0 mmol/L (3.5-5.1) 08/18/24 04:14 Chloride 102 mmol/L (98-107) 08/18/24 04:14 Carbon Dioxide 27 mmol/L (22-29) 08/18/24 04:14 Anion Gap 16.0 (5-19) 08/18/24 04:14 BUN 35 mg/dL (8-23) H 08/18/24 04:14 Creatinine 1.8 mg/dL (0.5-0.9) H 08/18/24 04:14 GFR Calculation Not Reportable 08/18/24 04:14 Glucose 146 mg/dL (65-115) H 08/18/24 04:14 Estimat Average Glucose 120 08/14/24 12:30 Hemoglobin A1c 5.8 % (4.0-6.0) 08/14/24 12:30 Calculated Osmolality 303 mOsm/kg (285-295) H 08/18/24 04:14 Lactic Acid 2.0 mmol/L (0.5-2.2) 08/15/24 03:55 Lactic Acid (Sepsis) 3.5 mmol/L (0.5-2.2) H 08/14/24 15:13 Calcium 8.8 mg/dL (8.5-10.5) 08/18/24 04:14 Phosphorus 2.7 mg/dL (2.5-4.5) 08/17/24 04:16 Magnesium 2.0 mg/dL (1.7-2.3) 08/17/24 04:16 Iron 12 ug/dL (37-145) L 08/14/24 16:19 TIBC 366 mcg/dl 08/14/24 16:19 % Saturation 3.2 % (20-50) L 08/14/24 16:19 Unsat Iron Binding 354 ug/dL (112-347) H 08/14/24 16:19 Total Bilirubin 0.4 mg/dL (0.15-1.2) 08/18/24 04:14 AST 73 U/L (0-32) H 08/18/24 04:14 ALT 104 U/L (0-33) H 08/18/24 04:14 Alkaline Phosphatase 95 U/L (35-105) 08/18/24 04:14 Troponin T Baseline 233 ng/L (0-10) H* 08/16/24 09:59 Troponin T 120 Minute 223.1 ng/L (0-10) H 08/16/24 11:47 Delta Troponin T -9.9 ABS# (0-10) L 08/16/24 11:47 Troponin T Hi Sens 6Hr 221.3 ng/L (0-10) H 08/16/24 15:22 Troponin T Hi Sens 6Hr Delta -11.7 ng/L (0-12) L 08/16/24 15:22 Total Protein 6.5 g/dL (6.6-8.7) L 08/18/24 04:14 Albumin 3.8 g/dL (3.5-5.2) 08/18/24 04:14 Globulin 2.7 g/dL (1.3-4.6) 08/18/24 04:14 Triglycerides 78 mg/dL (0-150) 08/15/24 03:55 Cholesterol 146 mg/dL (0-200) 08/15/24 03:55 LDL Cholesterol, Calc 93 mg/dL (50-129) 08/15/24 03:55 HDL Cholesterol 37 mg/dL (60-100) L 08/15/24 03:55 LDL/HDL Ratio 2.51 RATIO (0.00-3.22) 08/15/24 03:55 Cholesterol/HDL Ratio 3.95 mg/dL (0.0-4.40) 08/15/24 03:55 Lipase 76 U/L (13-60) H 08/14/24 12:30 Vitamin B12 474 pg/mL (232-1245) 08/14/24 16:19 Folate 8.0 ng/mL (4.8-37.3) 08/15/24 03:55 Procalcitonin 0.32 ng/mL (0-0.5) 08/15/24 03:55 TSH 8.70 uIU/mL (0.27-4.20) H 08/14/24 16:19 Free T4 1.20 ng/dL (0.82-1.77) 08/15/24 03:55 Free T3 1.7 PG/ML (2.0-4.4) L 08/15/24 03:55 Urine Color Yellow (Yellow) 08/14/24 15:15 Urine Appearance Turbid (CLEAR) A 08/14/24 15:15 Urine pH 5.0 (5-7) 08/14/24 15:15 Ur Specific [place] 1.020 (1.005-1.030) 08/14/24 15:15 Urine Protein 2+ (Negative) A 08/14/24 15:15 Urine Glucose (UA) Trace (Normal) H 08/14/24 15:15 Urine Ketones Trace (Negative) 08/14/24 15:15 Urine Blood Trace (Negative) A 08/14/24 15:15 Urine Nitrate Negative (Negative) 08/14/24 15:15 Urine Bilirubin Negative (Negative) 08/14/24 15:15 Urine Urobilinogen 1.0 mg/dL (Negative) 08/14/24 15:15 Ur Leukocyte Esterase 2+ (Negative) A 08/14/24 15:15 Urine RBC 21-50 /hpf (0-2) H 08/14/24 15:15 Urine WBC >100 /hpf (0-5) H 08/14/24 15:15 Ur Squamous Epith Cells 6-10 /hpf (0-5) 08/14/24 15:15 Amorphous Sediment Trace /hpf 08/14/24 15:15 Urine Bacteria Trace /hpf (NONE) 08/14/24 15:15 Hyaline Casts 88.53 /lpf 08/14/24 15:15 Ur Oval Fat Bodies 1+ /hpf 08/14/24 15:15 Nasal MRSA (PCR) Not detected (Not Detecte) 08/14/24 17:45 Salicylates < 0.3 mg/dL (3-10) L 08/14/24 12:30 Urine Opiates Screen Positive ng/mL (Negative) H 08/14/24 15:15 Acetaminophen < 5.0 ug/mL (10-30) L 08/14/24 12:30 Ur Barbiturates Screen Negative ng/mL (Negative) 08/14/24 15:15 Ur Phencyclidine Scrn Negative ng/mL (Negative) 08/14/24 15:15 Ur Amphetamines Screen Negative ng/mL (Negative) 08/14/24 15:15 U Benzodiazepines Scrn Negative ng/mL (Negative) 08/14/24 15:15 Urine Cocaine Screen Negative ng/mL (Negative) 08/14/24 15:15 U Marijuana (THC) Screen Negative ng/mL (Negative) 08/14/24 15:15 Ethyl Alcohol < 10 mg/dL (0-10) 08/14/24 12:30 Serum Ketones Negative (Negative) 08/14/24 17:20 C. difficile (PCR) Negative (Negative) 08/17/24 11:42 Blood Type A Positive 08/15/24 12:55 Rho(D) Type Rh positive 08/15/24 12:55 Antibody Screen Negative 08/15/24 12:55 Crossmatch See Detail 08/15/24 12:55 Micro: Microbiology 08/17/24 11:42 Stool Lactoferrin - Final Stool A&P Assessment and plan (1) Atherosclerotic heart disease of [place] coronary artery with unstable angina pectoris: Patient is currently stable with no recurrence of chest pain. For further evaluation of her coronary status, the option of doing a cardiac catheterization versus Myocardial perfusion imaging were discussed. Patient is not keen for another angiogram. Especially with the kidney disease, she carries a higher risk of contrast-induced nephropathy. So a shared decision was made to try a Myocardial perfusion imaging to evaluate ischemic burden and then decide on the need for angiogram. (2) CHF (congestive heart failure): The patient's heart failure seems to be fairly treated. At this point, we may cut back on the Lasix to 40 mg p.o. twice daily. Also will cut back the potassium to 20 mEq p.o. twice daily (3) Bilateral carotid artery stenosis: Patient is seems to be stable. Will continue on the current management (4) Mixed dyslipidemia: May continue on the current medications. (5) History of pulmonary embolism: Patient is on long-term oral anticoagulation. May continue the current anticoagulation with Lovenox till we do the cardiac catheterization (6) Respiratory acidosis with metabolic acidosis: This could be multifactorial. COPD exacerbation/congestive heart failure/sepsis are contributing factor Clinically the patient is improving. The oxygen requirement is back to baseline at this point (7) Acute kidney injury superimposed on chronic kidney disease: Currently the kidney function seems to be fairly stable. Will continue the close monitoring Plan Other problems are COPD exacerbation, stable Anemia, stable Urosepsis, improving, remaining afebrile Will schedule for Lexiscan/sestamibi/sestamibi stress test Continue on the other current medications Based on the perfusion scan, further recommendations will be made PDMP PDMP Reviewed: Not Reviewed Attestations 2 Medical Necessity Statement*: Patient requires continued hospital stay for close monitoring and further management Coding Level of Care Code 19782 Diagnoses Atherosclerosis of [place] coronary artery of [place] heart with unstable angina pectoris I25.110 [place] vs. transplanted heart: [place] heart Acute on chronic diastolic congestive heart failure I50.33 Heart failure type: diastolic Heart failure chronicity: acute on chronic Bilateral carotid artery stenosis I65.23 Mixed dyslipidemia E78.2 History of pulmonary embolism Z86.711 Respiratory acidosis with metabolic acidosis E87.4 Acute kidney injury superimposed on chronic kidney disease N17.9; N18.9
--- NOTE | 2024-08-18 10:43 | PC.NURSE ---
Bowel movement this morning was dark and possible had a red tint to it, but could not tell for sure. Fecal occult sample sent to lab.
[2024-08-18] MEDS: POTASSIUM CHLORIDE 10 MEQ 20 EACH PO (11:25)
--- NOTE | 2024-08-18 11:52 | ECG_ITS ---
[facility]: 2024-[facility]-19 Pat Name: Ayah Sanchez Department: Room: ICU08 Gender: Female Documentation Manager: : 1945 Requested By: Ralph Cantu Order Number: [id number] Landon MD: Guicho Chavarria M.D. Interpretive Statements Lung unchanged pre/post procedure Intraprocedure shortess of breath Symptoms resoled by discharge PROCEDURE: At the baseline, the EKG revealed normal sinus rhythm with a diffuse nonspecific T wave changes. The baseline heart was 60 to bpm with a blood pressue of 120/63 mm of Hg Lexiscan was infused over a period of 20 seconds. A total of 0.4 milligrams of Lexiscan was infused. The stress phase was continued for a total of 5 minutes. Heart rate at the end of the stress phase was 70 bpm with a blood pressure 198/66 mm of Hg. The EKG at the peak infusion revealed no significant changes. Sestamibi was injected 20 seconds after the Lexiscan infusion. Heart rate at the end of the recovery phase was 70 bpm with a blood pressure of 131/60 mm of Hg. CONCLUSION: 1. No significant EKG changes with the LexiScan infusion 2. No LexiScan induced chest pain or cardiac arrhythmia 3. Normal blood pressure and heart rate response 4. Sestamibi/sestamibi perfusion scan pending; see separate report. Electronically Signed On 08-26-2024 17:13:21 CDT by Guicho Chavarria M.D. [email or web address]
[2024-08-18] MEDS: FUROsemide 10 mg/mL SDV 4mL 40 MG IVP (12:13)
--- NOTE | 2024-08-18 13:09 | PC.NURSE ---
Dr Chavarria ordered a stress test tomorrow. Nurse called Nuclear medicine industrial relations counselor, spoke to Hellen. Alerted her to test tommorow. She will order needed supplies.
--- NOTE | 2024-08-18 13:46 | P.PN_ITS ---
Subjective 2 Subjective: No acute events. Patient has remained hemodynamically stable and afebrile. Oxygen supplementation down to 3 L from 2 Diafer yesterday. Patient states she is feeling a lot better. Denies any nausea, vomiting, headache or chest pain. Vitals/I&O/Wt Last Vital Signs Temp 97.6 F 08/18/24 08:00 Pulse 69 08/18/24 13:27 Resp 16 08/18/24 13:18 BP 133/67 08/18/24 11:26 Pulse Ox 97 08/18/24 13:18 O2 Del Method Nasal Cannula 08/18/24 13:18 O2 Flow Rate 2 08/18/24 13:18 FiO2 45 08/17/24 20:20 08/17/24 08/18/24 08/18/24 22:59 06:59 14:59 Intake Total 650 / 820 290 / 1110 160 / 160 Output Total 1750 / 2700 1200 / 3900 Balance -1100 / -1880 -910 / -2790 160 / 160 Weight last 48 hrs Weight 85 kg Weight 83 kg Weight 87 kg Weight 87 kg Physical Exam 2 Narrative: General: No acute distress, AO x3, pallor present, sick appearing, pleasant HEENT: PERRLA, pupils bilaterally equal and reactive Chest: Bilateral bronchial breath sounds all over lung rai with occasional rhonchi CVS: S1-S2 regular, no murmurs, no tachycardia, no gallops, no rubs Abdomen: Soft, nontender, no organomegaly, bowel sounds present Neuro: No focal deficits, no facial deformity, AO x3, power 5/5 in all limbs Urinary Catheter Management: Marinelli: Cath Placed During This Visit: yes Reason for Continuing Indwelling Catheter: Accurate Measurement of Urinary Output in Critically Ill Patients Urinary Catheter Date of Insertion: 08/14/24 Urinary Catheter Time of Insertion: 15:17 Data 08/18/24 04:14 08/18/24 04:14 Micro: Microbiology 08/18/24 10:30 Occult Blood (FIT) - Final Stool - Stool Aspirate 08/17/24 11:42 Stool Lactoferrin - Final Stool A&P Assessment and plan (1) Septic shock: Resolved. Keep mean arterial pressure 65. Levophed weaned off. F/u blood culture, appreciated trend procalcitonin, negative MRSA swab,f/u urine culture. C/w IV Zosyn to finish a 5-day course. De-escalate as per culture sensitivities. Stool studies negative for C. difficile. (2) Acute hypoxic on chronic hypercapnic respiratory failure: Resolving. In setting of congestive heart failure. Oxygen supplementation keeping saturation over 88%. Currently on 3 L. Patient baseline on 2 L at home. Out of bed to chair. Aggressive pulmonary toilet. Pulmicort twice daily, DuoNeb every 6 hour. Wean Solu-Medrol to 40 mg IV daily. (3) NSTEMI (non-ST elevated myocardial infarction): Patient having new chest pain today. Baseline troponin 233. Appreciate EKG showing ST depression in V3-V6. Repeat baseline troponin now 233. Trending down. Baseline troponin on admission 24 with troponin plateauing to 40 at that time. Patient already on full dose Lovenox 1 mg/kg body weight daily as per creatinine clearance. Continue with Plavix 75 mg daily, atorvastatin 10 mg daily. Patient allergic to aspirin. Cannot use beta-joaquin given bradycardia and heart rate dropping down to 31 time during hospitalization. Nitropaste half inch. Monitor blood pressures. Patient not a good candidate for angiogram for now given advanced age, worsening creatinine though if continues to have chest pain might need cardiac angiogram. Echocardiogram done this admission negative for RWMA. Can repeat limited echo for regional wall motion abnormality and EF. Last cardiac angiogram from 07/27 showed left main having mild to moderate disease, LAD tortuous with mild to moderate diffuse disease, LCx diffuse mild to moderate disease, ostial RCA with 70% stenosis, mid right RCA 90% stenosis. Patient underwent mid RCA revascularization with PCI, ostial RCA revascularization with PCI. Discussed need with the patient for further evaluation and possible revascularization. Discussed options of cardiac angiogram versus Lexiscan stress test. Discussed possibility of DAVID given GERARDO with cardiac angiogram. Patient verbalized understanding and wants to go ahead with Lexiscan prior to angiogram and then decide. N.p.o. after midnight. Lexiscan stress test in AM. (4) CHF (congestive heart failure): Echocardiogram done shows normal EF with grade 3 diastolic dysfunction with moderate LVH. Concerns for acute decompensated diastolic heart failure. Appreciate urine output. IV Lasix 40 mg daily. Will have to monitor renal function closely as patient had a robust urine response to Lasix on previous occasion in last 24 hours. Strict input charting, daily weights. Fluid restriction of less than 1500 cc. (5) GERARDO (acute kidney injury): Most likely in setting of septic shock. Baseline creatinine 1-1.4. Creatinine currently stable around 1.8. Medical reconciliation done for nephrotoxic drugs. Repeat BMP in afternoon. Monitor urine output. CT on pelvis negative for obstructive nephropathy. Hold off on any further IV diuresis and fluids for now. Monitor renal functions daily. (6) Atrial fibrillation with slow ventricular response: (7) Coronary artery disease: History of CAD with PCI. Appreciate A1c, lipid panel. Continue with home dose of Plavix, statin. Troponin cycle appreciated and negative on admission. (8) Hypercapnic respiratory failure: Hypercapnic respiratory failure is resolved. Further treatment as above. (9) Respiratory acidosis with metabolic acidosis: On admission she had metabolic and respiratory in setting of hypercapnia and elevated lactate. Unlikely DKA. Negative ketones. Resolved. (10) UTI (urinary tract infection): (11) Iron deficiency anemia: Baseline hemoglobin seems to be in mid 9s. Target hemoglobin over 8. Post 1 unit of blood transfusion. Continue with IV iron supplementation. (12) HTN (hypertension): Goal blood pressure less than 140/90 mmHg with mean over 65. Hold off on antihypertensive. Takes metoprolol 25 mg along with losartan 50 mg daily at home. (13) Lactic acid acidosis: (14) Type 2 diabetes mellitus: Ruled out. A1c of 5.8. Insulin sliding scale low-dose protocol. Hypoglycemia protocol (15) History of pulmonary embolism: Currently normal D-dimer. No concerns for PE. Switch from home dose of Eliquis 2.5 mg twice daily to Lovenox 1 mg/kg body weight daily as per creatinine clearance Plan Bradycardia: Heart rate dropping down to high 20s to mid 30s yesterday. 1 episode. Could be in setting of severe metabolic acidosis. Patient does take beta-joaquin at home. Hold off on metoprolol for now. Telemetry. CODE STATUS: Discussed in detail with the patient. She is okay with chest compression but does not want mechanical ventilation. She is worried if she goes on mechanical ventilator she will be ventilator dependent. CODE STATUS changed to limited resuscitation only. Cardiac diet Protonix will be sufficient for PUD prophylaxis Full dose Lovenox with sufficient for DVT prophylaxis PDMP PDMP Reviewed: Not Reviewed Attestations 2 Medical Necessity Statement*: Requested hospitalization for management of non-ST elevation AR, acute respiratory failure in setting of congestive heart failure, sepsis in setting of UTI, acute kidney injury while patient requires further evaluation for ACS Diagnoses Septic shock A41.9; R65.21 Acute hypoxic on chronic hypercapnic respiratory failure J96.01; J96.12 NSTEMI (non-ST elevated myocardial infarction) I21.4 Acute on chronic diastolic congestive heart failure I50.33 Heart failure type: diastolic Heart failure chronicity: acute on chronic GERARDO (acute kidney injury) N17.9 Atrial fibrillation with slow ventricular response I48.91 Coronary artery disease involving [place] coronary artery of [place] heart without angina pectoris I25.10 Coronary Disease-Associated Artery/Lesion type: [place] artery [place] vs. transplanted heart: [place] heart Associated angina: without angina Hypercapnic respiratory failure J96.92 Respiratory acidosis with metabolic acidosis E87.4 Urinary tract infection with hematuria, site unspecified N39.0; R31.9 Urinary tract infection type: site unspecified Hematuria presence: with hematuria Iron deficiency anemia, unspecified iron deficiency anemia type D50.9 Iron deficiency anemia type: unspecified iron deficiency Primary hypertension I10 Hypertension type: primary hypertension Lactic acid acidosis E87.20 Type 2 diabetes mellitus E11.9 History of pulmonary embolism Z86.711
[2024-08-18 15:22] LABS: Blood Urea Nitrogen 36 mg/dL (8-23); Calcium 8.8 mg/dL (8.5-10.5); Carbon Dioxide 27 mmol/L (22-29); Chloride 101 mmol/L (98-107); Creatinine Clr Calc Pharmacy 26.6917; Glucose 184 mg/dL (65-115); Osmolality Calculated 309 mOsm/kg (285-295); Sodium 143 mmol/L (136-145)
[2024-08-18] MEDS: enoxaparin 80 mg/0.8 mL Syringe SUBCUT (17:07)
--- NOTE | 2024-08-18 17:55 | PC.NURSE ---
Shift SUmmary: Up to chair for the whole day. Ambulated in vera approximately 100 feet. Started on 1500mL fluid restriction. NPO at midnight for stress test tommorow.
[2024-08-18] MEDS: ropinirole 0.25 mg Tablet 0.5 MG PO (21:51)
[2024-08-18] MEDS: acetaminophen 325 mg Tablet 650 MG PO (21:51)
[2024-08-18] MEDS: morphine 4 mg/mL SDV 1 mL 2 MG IVP (23:12)
[2024-08-19] VITALS (37 sets, daily range): BP systolic 117–154; BP diastolic 53–84; PULSE 49–81; RESP 12–31; TEMP 36.3–36.8; O2SAT 89–98; BMI 35.0
--- NOTE | 2024-08-19 03:09 | PC.NURSE ---
Nitro: Dr. Nieto gave telephone orders to only administer 5 order of nitro paste and to wipe off at 0600 for morning stress test. 0415 administration held.
[2024-08-19] MEDS: piperacillin-tazobactam 3.375 GM in sodium chloride 0.9% (plus) 50 ML IV (04:31)
[2024-08-19] MEDS: pantoprazole 40 mg SDV IVP (04:31)
[2024-08-19 05:02] LABS: Basophils % 0.3 %; Eosinophils % 0.2 %; Hematocrit 32.5 % (36-47); Lymphocytes % 15.5 %; Mean Corpuscular HGB Conc 30.8 g/dL (30-55); Mean Corpuscular Hemoglobin 26.5 pg (27-33); Mean Corpuscular Volume 86.2 fl (85-98); Mean Platelet Volume 10.7 fL (7.4-10.4); Monocytes # 1.2 10^3/uL (0.2-0.9); Monocytes % 9.1 %; Neutrophils # 8.88 10^3/uL (1.8-7.7); Nucleated Red Blood Cells # 0.1 /100WBC; Nucleated Red Blood Cells % 0.7 %; Platelet Count 336 10^3/cmm (157-399); Red Blood Count 3.77 10^6/uL (3.85-5.65); Red Cell Distribution Width 14.4 % (12.1-15.1); White Blood Count 12.68 10^3/uL (3.29-11.43)
[2024-08-19 05:18] LABS: Alanine Aminotransferase 84 U/L (0-33); Albumin Level 3.6 g/dL (3.5-5.2); Alkaline Phosphatase 78 U/L (35-105); Anion Gap 16.1 (5-19); Aspartate Amino Transferase 38 U/L (0-32); Blood Urea Nitrogen 38 mg/dL (8-23); Calcium 8.7 mg/dL (8.5-10.5); Carbon Dioxide 29 mmol/L (22-29); Chloride 106 mmol/L (98-107); Creatinine Clr Calc Pharmacy 26.6917; Globulin 2.4 g/dL (1.3-4.6); Glucose 104 mg/dL (65-115); Osmolality Calculated 313 mOsm/kg (285-295); Potassium 4.1 mmol/L (3.5-5.1); Sodium 147 mmol/L (136-145); Total Bilirubin 0.3 mg/dL (0.15-1.2)
[2024-08-19] MEDS: levothyroxine 25 mcg Tablet PO (05:23)
[2024-08-19] MEDS: iron sucrose 200 MG in sodium chloride 0.9% (100 ml) 100 ML 220 MG IV (05:24)
[2024-08-19] MEDS: regadenoson 0.4 Mg/5 ml Syringe IVP (09:07)
[2024-08-19] MEDS: nitroglycerin 1 gm/inch oint Pkt 0.5 INCH TOPICAL (10:27)
[2024-08-19] MEDS: clopidogrel 75 mg Tablet PO (10:27)
[2024-08-19] MEDS: methylPREDNISolone sod succ 40 mg/mL INJ IVP (10:28)
[2024-08-19] MEDS: oxybutynin chloride XL 5 MG TABLET 10 MG PO (10:28)
--- NOTE | 2024-08-19 12:45 | P.PN_ITS ---
Subjective 2 Subjective: The patient is feeling okay. She had a Myocardial perfusion imaging today. She was found to have small areas of ischemia in the distribution of the left circumflex artery. She denies any chest pain. The shortness of breath is significantly improved Medications: Medication Review Details: Current Medications Acetaminophen (Acetaminophen 325 Mg Tablet) 650 mg PO Q6H PRN PRN Reason: Mild/Mod Pain Or Temp >/= 101 Last Admin: 08/18/24 21:51 Dose: 650 mg Albuterol/Ipratropium (Ipratropium-Albuterol 3 Ml Neb) 3 ml INHALATION Q6H.RESP CLAIRE Last Admin: 08/19/24 08:38 Dose: Not Given Aminophylline (Aminophylline 25 Mg/Ml Sdv 20 Ml) 25 mg IVP Q2M PRN PRN Reason: see dose instructions Stop: 08/20/24 06:56 Benzocaine (Cetylpyridinium Lozenge) 1 each MUCOUS MEM Q2H PRN PRN Reason: SORE THROAT Last Admin: 08/18/24 02:24 Dose: 1 each Budesonide (Budesonide 0.5 Mg/2 Ml Neb) 0.5 mg INHALATION BID.RESPIRATORY CLAIRE Last Admin: 08/19/24 08:38 Dose: Not Given Clopidogrel Bisulfate (Clopidogrel 75 Mg Tablet) 75 mg PO DAILY CLAIRE Last Admin: 08/19/24 10:27 Dose: 75 mg Docusate Sodium (Docusate Sodium 100 Mg Capsule) 100 mg PO BID PRN PRN Reason: Constipation Enoxaparin Sodium (Enoxaparin 80 Mg/0.8 Ml Syringe) 80 mg SUBCUT Q24H CLAIRE Last Admin: 08/18/24 17:07 Dose: 80 mg Furosemide (Furosemide 10 Mg/Ml Sdv 4ml) 40 mg IVP Q24H CLAIRE Last Admin: 08/18/24 12:13 Dose: 40 mg Norepinephrine Bitartrate (Levophed) 4 mg in 250 mls @ 0 mls/hr IV .Q0M CLAIRE; Protocol Last Titration: 08/16/24 01:20 Dose: 0 mcg/min, 0 mls/hr Piperacillin Sod/Tazobactam (Sod 3.375 gm/ Sodium Chloride) 50 mls @ 12.5 mls/hr IV Q8H CLAIRE; Protocol Last Admin: 08/19/24 04:31 Dose: 12.5 mls/hr Lactulose (Lactulose Oral Liq 20 Gm/30 Ml Udc) 10 gm PO DAILY PRN; Protocol PRN Reason: Constipation (see protocol) Lanolin (Lanolin Oint 7 Gm) 1 applic TOPICAL PRN PRN PRN Reason: DRYNESS Last Admin: 08/16/24 17:08 Dose: 1 applic Levothyroxine Sodium (Levothyroxine 25 Mcg Tablet) 25 mcg PO QAM CLAIRE Last Admin: 08/19/24 05:23 Dose: 25 mcg Magnesium Hydroxide (Magnesium Hydroxide 30 Ml Udc) 30 ml PO DAILY PRN; Protocol PRN Reason: Constipation (see protocol) Methylprednisolone Sodium Succinate (Methylprednisolone Sod Succ 40 Mg/Ml Inj) 40 mg IVP DAILY [facility] Last Admin: 08/19/24 10:28 Dose: 40 mg Morphine Sulfate (Morphine 4 Mg/Ml Sdv 1 Ml) 2 mg IVP Q4H PRN PRN Reason: SEVERE PAIN Last Admin: 08/18/24 23:12 Dose: 2 mg Nitroglycerin (Nitroglycerin 1 Gm/Inch Oint Pkt) 0.5 inch TOPICAL Q6H CLAIRE Last Admin: 08/19/24 10:27 Dose: 0.5 inch Nitroglycerin (Nitroglycerin 0.4 Mg Sublingual Tablet) 0.4 mg SUBLINGUAL Q5M PRN PRN Reason: CHEST PAIN Stop: 08/20/24 06:56 Non-Formulary Medication ( Potassium Chloride Er 10 Meq Cap) 20 each PO DAILY [facility] Last Admin: 08/19/24 10:28 Dose: Not Given Ondansetron HCl (Ondansetron 2 Mg/Ml Sdv 2 Ml) 4 mg IVP Q6H PRN PRN Reason: vomiting, or N/V if npo Oxybutynin Chloride (Oxybutynin Chloride Xl 5 Mg Tablet) 10 mg PO DAILY [facility] Last Admin: 08/19/24 10:28 Dose: 10 mg Pantoprazole Sodium (Pantoprazole 40 Mg Sdv) 40 mg IVP Q12H CLAIRE Last Admin: 08/19/24 04:31 Dose: 40 mg Ropinirole HCl (Ropinirole 0.25 Mg Tablet) 0.5 mg PO BEDTIME CLAIRE Last Admin: 08/18/24 21:51 Dose: 0.5 mg Vitals/I&O/Wt Last Vital Signs Temp 98.3 F 08/19/24 05:00 Pulse 57 L 08/19/24 10:30 Resp 19 H 08/19/24 10:30 BP 129/81 08/19/24 10:30 Pulse Ox 93 08/19/24 08:00 O2 Del Method Nasal Cannula 08/19/24 05:00 O2 Flow Rate 2 08/19/24 05:00 FiO2 45 08/17/24 20:20 08/18/24 08/19/24 08/19/24 22:59 06:59 14:59 Intake Total 820 / 1610 640 / 2250 Output Total 550 / 950 550 / 1500 Balance 270 / 660 90 / 750 Weight last 48 hrs Weight 191 lb 12.835 oz Weight 187 lb 6.287 oz Weight 182 lb 15.739 oz Physical Exam 2 Narrative: GENERAL: The patient is alert and oriented times three. Not in any acute distress. HEENT: There is minimal pallor. No, icterus or lymphadenopathy.Oral cavity: There are no mucous membrane lesions. NECK: Trachea appears to be central. No masses noted. No JVD or thyromegaly appreciated. RESPIRATORY: Chest is symmetrical. No intercostals muscle retraction or any accessory muscle activation. There is no chest wall tenderness. Breath sounds are heard bilaterally. No rales or rhonchi heard. No evidence of any consolidation. BREASTS: Deferred. HEART: The heart sounds are normal. No S3 or S4. No significant murmurs. No pericardial rub ABDOMEN: No vessel pulsations or distention. No tenderness. No organomegaly appreciated. Bowel sounds are normally heard. : Deferred. RECTAL: Deferred. LYMPHATIC: No lymphadenopathy noted in the neck. EXTREMITIES: No edema or cyanosis. No clubbing. MUSCULOSKELETAL: No acute joint deformities or swelling SKIN: There are no significant rashes or ecchymosis NEUROPSYCHIATRIC: The patient is alert and oriented x3. Appears to be in a good mood. No tremors or rigidity noted. Urinary Catheter Management: Marinelli: Cath Placed During This Visit: yes Reason for Continuing Indwelling Catheter: Accurate Measurement of Urinary Output in Critically Ill Patients Urinary Catheter Date of Insertion: 08/14/24 Urinary Catheter Time of Insertion: 15:17 Data 08/19/24 04:04 08/19/24 04:04 Other Labs: Laboratory Last Values WBC 12.68 10^3/uL (3.29-11.43) H 08/19/24 04:04 RBC 3.77 10^6/uL (3.85-5.65) L 08/19/24 04:04 Hgb 10.00 g/dL (11.27-16.99) L 08/19/24 04:04 Hct 32.5 % (36-47) L 08/19/24 04:04 MCV 86.2 fl (85-98) 08/19/24 04:04 MCH 26.5 pg (27-33) L 08/19/24 04:04 MCHC 30.8 g/dL (30-55) 08/19/24 04:04 RDW 14.4 % (12.1-15.1) 08/19/24 04:04 Plt Count 336 10^3/cmm (157-399) 08/19/24 04:04 MPV 10.7 fL (7.4-10.4) H 08/19/24 04:04 Neut % (Auto) 70.0 % 08/19/24 04:04 Lymph % (Auto) 15.5 % 08/19/24 04:04 Nolan % (Auto) 9.1 % 08/19/24 04:04 Eos % (Auto) 0.2 % 08/19/24 04:04 Baso % (Auto) 0.3 % 08/19/24 04:04 Neut # (Auto) 8.88 10^3/uL (1.8-7.7) H 08/19/24 04:04 Lymph # (Auto) 2.0 10^3/uL (0.8-4.8) 08/19/24 04:04 Nolan # (Auto) 1.2 10^3/uL (0.2-0.9) H 08/19/24 04:04 Eos # (Auto) 0.0 10^3/uL (0.0-0.8) 08/19/24 04:04 Baso # (Auto) 0.0 10^3/uL (0.0-0.1) 08/19/24 04:04 Nucleated RBC % (auto) 0.7 % 08/19/24 04:04 Nucleated RBCs # 0.1 /100WBC 08/19/24 04:04 D-Dimer 0.48 ug/mLFEU (0-0.59) 08/14/24 12:30 Specimen Type Arterial 08/15/24 12:40 Sample Site Radial, right 08/15/24 12:40 ABG pH 7.37 (7.35-7.45) 08/15/24 12:40 ABG pCO2 40.8 mmHg (35-45) 08/15/24 12:40 ABG pO2 51.9 mmHg (80.0-100.0) L 08/15/24 12:40 ABG PO2/FiO2 Ratio 162 08/15/24 12:40 ABG HCO3 23.6 mmol/L (22-26) 08/15/24 12:40 ABG O2 Saturation 86.1 08/15/24 12:40 ABG Base Excess -1.6 mmol/L (-2.0-2.0) 08/15/24 12:40 Satnam Test Pos 08/15/24 12:40 A-a O2 Gradient 16.4 mmHg (5-10) H 08/15/24 12:40 Hematocrit 24.3 % (37-47) L 08/15/24 12:40 Hgb O2 Saturation 83.6 % (95-100) L 08/15/24 12:40 Carboxyhemoglobin 1.3 %THgb (0.4-20.1) 08/15/24 12:40 Methemoglobin 1.6 % (0.4-1.5) H 08/15/24 12:40 Total Hemoglobin 7.9 g/dL (12-16) L 08/15/24 12:40 Sodium 141.0 mmol/L (131-143) 08/15/24 12:40 Potassium 3.7 mmol/L (3.5-5.0) 08/15/24 12:40 Glucose 157.0 mg/dL (70-115) H 08/15/24 12:40 Ionized Calcium 1.1 mmol/L (1.1-1.4) 08/15/24 12:40 O2 Delivery Device Nc 08/15/24 12:40 O2 Liters/Min 3.0 % 08/15/24 12:40 FiO2 32.0 % 08/15/24 12:40 Tidal Volume 0.46 08/14/24 15:45 PEEP 8.0 cmH20 08/14/24 15:45 Extermination Inspector ID Gd 08/15/24 12:40 Sodium 147 mmol/L (136-145) H 08/19/24 04:04 Potassium 4.1 mmol/L (3.5-5.1) 08/19/24 04:04 Chloride 106 mmol/L (98-107) 08/19/24 04:04 Carbon Dioxide 29 mmol/L (22-29) 08/19/24 04:04 Anion Gap 16.1 (5-19) 08/19/24 04:04 BUN 38 mg/dL (8-23) H 08/19/24 04:04 Creatinine 1.7 mg/dL (0.5-0.9) H 08/19/24 04:04 GFR Calculation Not Reportable 08/19/24 04:04 Glucose 104 mg/dL (65-115) 08/19/24 04:04 Estimat Average Glucose 120 08/14/24 12:30 Hemoglobin A1c 5.8 % (4.0-6.0) 08/14/24 12:30 Calculated Osmolality 313 mOsm/kg (285-295) H 08/19/24 04:04 Lactic Acid 2.0 mmol/L (0.5-2.2) 08/15/24 03:55 Lactic Acid (Sepsis) 3.5 mmol/L (0.5-2.2) H 08/14/24 15:13 Calcium 8.7 mg/dL (8.5-10.5) 08/19/24 04:04 Phosphorus 2.7 mg/dL (2.5-4.5) 08/17/24 04:16 Magnesium 2.0 mg/dL (1.7-2.3) 08/17/24 04:16 Iron 12 ug/dL (37-145) L 08/14/24 16:19 TIBC 366 mcg/dl 08/14/24 16:19 % Saturation 3.2 % (20-50) L 08/14/24 16:19 Unsat Iron Binding 354 ug/dL (112-347) H 08/14/24 16:19 Total Bilirubin 0.3 mg/dL (0.15-1.2) 08/19/24 04:04 AST 38 U/L (0-32) H 08/19/24 04:04 ALT 84 U/L (0-33) H 08/19/24 04:04 Alkaline Phosphatase 78 U/L (35-105) 08/19/24 04:04 Troponin T Baseline 233 ng/L (0-10) H* 08/16/24 09:59 Troponin T 120 Minute 223.1 ng/L (0-10) H 08/16/24 11:47 Delta Troponin T -9.9 ABS# (0-10) L 08/16/24 11:47 Troponin T Hi Sens 6Hr 221.3 ng/L (0-10) H 08/16/24 15:22 Troponin T Hi Sens 6Hr Delta -11.7 ng/L (0-12) L 08/16/24 15:22 Total Protein 6.0 g/dL (6.6-8.7) L 08/19/24 04:04 Albumin 3.6 g/dL (3.5-5.2) 08/19/24 04:04 Globulin 2.4 g/dL (1.3-4.6) 08/19/24 04:04 Triglycerides 78 mg/dL (0-150) 08/15/24 03:55 Cholesterol 146 mg/dL (0-200) 08/15/24 03:55 LDL Cholesterol, Calc 93 mg/dL (50-129) 08/15/24 03:55 HDL Cholesterol 37 mg/dL (60-100) L 08/15/24 03:55 LDL/HDL Ratio 2.51 RATIO (0.00-3.22) 08/15/24 03:55 Cholesterol/HDL Ratio 3.95 mg/dL (0.0-4.40) 08/15/24 03:55 Lipase 76 U/L (13-60) H 08/14/24 12:30 Vitamin B12 474 pg/mL (232-1245) 08/14/24 16:19 Folate 8.0 ng/mL (4.8-37.3) 08/15/24 03:55 Procalcitonin 0.32 ng/mL (0-0.5) 08/15/24 03:55 TSH 8.70 uIU/mL (0.27-4.20) H 08/14/24 16:19 Free T4 1.20 ng/dL (0.82-1.77) 08/15/24 03:55 Free T3 1.7 PG/ML (2.0-4.4) L 08/15/24 03:55 Urine Color Yellow (Yellow) 08/14/24 15:15 Urine Appearance Turbid (CLEAR) A 08/14/24 15:15 Urine pH 5.0 (5-7) 08/14/24 15:15 Ur Specific [place] 1.020 (1.005-1.030) 08/14/24 15:15 Urine Protein 2+ (Negative) A 08/14/24 15:15 Urine Glucose (UA) Trace (Normal) H 08/14/24 15:15 Urine Ketones Trace (Negative) 08/14/24 15:15 Urine Blood Trace (Negative) A 08/14/24 15:15 Urine Nitrate Negative (Negative) 08/14/24 15:15 Urine Bilirubin Negative (Negative) 08/14/24 15:15 Urine Urobilinogen 1.0 mg/dL (Negative) 08/14/24 15:15 Ur Leukocyte Esterase 2+ (Negative) A 08/14/24 15:15 Urine RBC 21-50 /hpf (0-2) H 08/14/24 15:15 Urine WBC >100 /hpf (0-5) H 08/14/24 15:15 Ur Squamous Epith Cells 6-10 /hpf (0-5) 08/14/24 15:15 Amorphous Sediment Trace /hpf 08/14/24 15:15 Urine Bacteria Trace /hpf (NONE) 08/14/24 15:15 Hyaline Casts 88.53 /lpf 08/14/24 15:15 Ur Oval Fat Bodies 1+ /hpf 08/14/24 15:15 Nasal MRSA (PCR) Not detected (Not Detecte) 08/14/24 17:45 Salicylates < 0.3 mg/dL (3-10) L 08/14/24 12:30 Urine Opiates Screen Positive ng/mL (Negative) H 08/14/24 15:15 Acetaminophen < 5.0 ug/mL (10-30) L 08/14/24 12:30 Ur Barbiturates Screen Negative ng/mL (Negative) 08/14/24 15:15 Ur Phencyclidine Scrn Negative ng/mL (Negative) 08/14/24 15:15 Ur Amphetamines Screen Negative ng/mL (Negative) 08/14/24 15:15 U Benzodiazepines Scrn Negative ng/mL (Negative) 08/14/24 15:15 Urine Cocaine Screen Negative ng/mL (Negative) 08/14/24 15:15 U Marijuana (THC) Screen Negative ng/mL (Negative) 08/14/24 15:15 Ethyl Alcohol < 10 mg/dL (0-10) 08/14/24 12:30 Serum Ketones Negative (Negative) 08/14/24 17:20 C. difficile (PCR) Negative (Negative) 08/17/24 11:42 Blood Type A Positive 08/15/24 12:55 Rho(D) Type Rh positive 08/15/24 12:55 Antibody Screen Negative 08/15/24 12:55 Crossmatch See Detail 08/15/24 12:55 Micro: Microbiology 08/18/24 10:30 Occult Blood (FIT) - Final Stool - Stool Aspirate A&P Assessment and plan (1) Atherosclerotic heart disease of [place] coronary artery with unstable angina pectoris: Patient is currently stable with no recurrence of chest pain. For further evaluation of her coronary status, the option of doing a cardiac catheterization versus Myocardial perfusion imaging were discussed. Patient is not keen for another angiogram. Especially with the kidney disease, she carries a higher risk of contrast-induced nephropathy. So a shared decision was made to try a Myocardial perfusion imaging to evaluate ischemic burden and then decide on the need for angiogram. Based on the perfusion scan, the area of ischemia is small. Since the patient is remaining stable with no recurrence of chest pain, it might be appropriate to continue the medical treatment. Patient is wanting to continue the medical treatment for a while. She seems to understand implications. (2) CHF (congestive heart failure): The heart failure seems to be fairly compensated at this time. May continue on the current medications. (3) Bilateral carotid artery stenosis: Patient is seems to be stable. Will continue on the current management (4) Mixed dyslipidemia: May continue on the current medications. (5) History of pulmonary embolism: Patient may be placed back on the Eliquis at the time of discharge. (6) Respiratory acidosis with metabolic acidosis: This is currently resolved. May continue on the current management (7) Acute kidney injury superimposed on chronic kidney disease: Currently the kidney function seems to be fairly stable. Will continue the close monitoring Plan Other problems are COPD exacerbation, stable Anemia, stable Urosepsis, improving, remaining afebrile The Myocardial perfusion imaging findings and its implications were discussed with the patient in detail which she understood well Patient may be transferred to the telemetry floor and encourage ambulation. The Nitropaste was discontinued and was started on isosorbide mononitrate. If she continues to remain stable, may be discharged home on the current medications. [facility] Patient with clinical progress, further management decisions will be made PDMP PDMP Reviewed: Not Reviewed Attestations 2 Medical Necessity Statement*: Patient requires continued hospital stay for close monitoring and further management Coding Level of Care Code 77116 Diagnoses Atherosclerosis of [place] coronary artery of [place] heart with unstable angina pectoris I25.110 [place] vs. transplanted heart: [place] heart Acute on chronic diastolic congestive heart failure I50.33 Heart failure chronicity: acute on chronic Heart failure type: diastolic Bilateral carotid artery stenosis I65.23 Mixed dyslipidemia E78.2 History of pulmonary embolism Z86.711 Respiratory acidosis with metabolic acidosis E87.4 Acute kidney injury superimposed on chronic kidney disease N17.9; N18.9
--- NOTE | 2024-08-19 12:50 | P.PN_ITS ---
Subjective 2 Subjective: Patient without chest pain. States breathing is back to baseline. Does not wear oxygen at rest at home. Asking to take oxygen off currently since O2 sat is 9697% while sitting in the chair. She wears oxygen with pulmonary rehab and with activity. Vitals/I&O/Wt Last Vital Signs Temp 98.3 F 08/19/24 05:00 Pulse 57 L 08/19/24 10:30 Resp 19 H 08/19/24 10:30 BP 129/81 08/19/24 10:30 Pulse Ox 93 08/19/24 08:00 O2 Del Method Nasal Cannula 08/19/24 05:00 O2 Flow Rate 2 08/19/24 05:00 FiO2 45 08/17/24 20:20 08/18/24 08/19/24 08/19/24 22:59 06:59 14:59 Intake Total 820 / 1610 640 / 2250 Output Total 550 / 950 550 / 1500 Balance 270 / 660 90 / 750 Weight last 48 hrs Weight 87 kg Weight 85 kg Weight 83 kg Physical Exam 2 Narrative: Patient is alert and oriented no acute distress Heart distant heart sounds no loud murmur Lungs diminished throughout with bilateral crackles. Abdomen soft nontender nondistended positive bowel sounds no hepatosplenomegaly Extremities no clubbing cyanosis or edema Urinary Catheter Management: Marinelli: Cath Placed During This Visit: yes Reason for Continuing Indwelling Catheter: Accurate Measurement of Urinary Output in Critically Ill Patients Urinary Catheter Date of Insertion: 08/14/24 Urinary Catheter Time of Insertion: 15:17 Data 08/19/24 04:04 08/19/24 04:04 Micro: Microbiology 08/18/24 10:30 Occult Blood (FIT) - Final Stool - Stool Aspirate A&P Assessment and plan (1) Septic shock: Resolved. Was on Levophed this was discontinued Blood and urine cultures are negative Changed to oral Omnicef DC IV antibiotics (2) Acute hypoxic on chronic hypercapnic respiratory failure: Resolving. In setting of congestive heart failure. Patient on 2 L nasal cannula. Which is what she wears at home with activity. May DC oxygen while at rest Out of bed to chair. Aggressive pulmonary toilet. Pulmicort twice daily, DuoNeb every 6 hour. Wean Solu-Medrol. (3) NSTEMI (non-ST elevated myocardial infarction): Nuclear med stress test positive for moderate area of reversible ischemia associated with the area of previous infarct. Discussed with Dr. Chavarria. Medical management. Patient without symptoms at this time transfer to floor Imdur initiated antihypertensives except lower dose beta-joaquin after CHF exacerbation Prior report of heart rate of 31 on a beta-joaquin. Stop Nitropaste start Imdur tomorrow Last cardiac angiogram from 07/27 showed left main having mild to moderate disease, LAD tortuous with mild to moderate diffuse disease, LCx diffuse mild to moderate disease, ostial RCA with 70% stenosis, mid right RCA 90% stenosis. Patient underwent mid RCA revascularization with PCI, ostial RCA revascularization with PCI. (4) CHF (congestive heart failure): Echocardiogram done shows normal EF with grade 3 diastolic dysfunction with moderate LVH. Currently compensated Appreciate urine output. IV Lasix 40 mg daily. Will have to monitor renal function closely as patient had a robust urine response to Lasix on previous occasion in last 24 hours. Strict input charting, daily weights. (5) GERARDO (acute kidney injury): Prior baseline recorded as 1-1.4. She is 1.7 and stable. Baseline creatinine 1-1.4. (6) Atrial fibrillation with slow ventricular response: (7) Coronary artery disease: As above (8) Hypercapnic respiratory failure: Resolved (9) Respiratory acidosis with metabolic acidosis: Resolved (10) UTI (urinary tract infection): Culture was negative (11) Iron deficiency anemia: Baseline hemoglobin seems to be in mid 9s. Post 1 unit of blood transfusion and received IV iron. Hemoglobin now 10. In stable (12) HTN (hypertension): Goal blood pressure less than 140/90 mmHg with mean over 65. Hold off on antihypertensive. Takes metoprolol 25 mg along with losartan 50 mg daily at home. (13) Lactic acid acidosis: (14) History of pulmonary embolism: Currently normal D-dimer. No concerns for PE. Switch from home dose of Eliquis 2.5 mg twice daily to Lovenox 1 mg/kg body weight daily as per creatinine clearance Plan Transfer to CSU continue Lovenox full dose. Will change diet back to Eliquis at home. Patient is bradycardic stop beta-joaquin. May resume ARB and will initiate Imdur for chest pain/ischemia CODE STATUS: Discussed in detail with the patient. She is okay with chest compression but does not want mechanical ventilation. She is worried if she goes on mechanical ventilator she will be ventilator dependent. CODE STATUS changed to limited resuscitation only. Cardiac diet Protonix will be sufficient for PUD prophylaxis Full dose Lovenox with sufficient for DVT prophylaxis PDMP PDMP Reviewed: Not Reviewed Attestations 2 Medical Necessity Statement*: Patient with non-ST segment elevation and positive stress test will monitor for worsening or arrhythmias while on medical management. Transfer to the floor Coding Level of Care Code Acute Code for Chg Fwd Diagnoses Septic shock A41.9; R65.21 Acute hypoxic on chronic hypercapnic respiratory failure J96.01; J96.12 NSTEMI (non-ST elevated myocardial infarction) I21.4 Acute on chronic diastolic congestive heart failure I50.33 Heart failure type: diastolic Heart failure chronicity: acute on chronic GERARDO (acute kidney injury) N17.9 Atrial fibrillation with slow ventricular response I48.91 Coronary artery disease involving [place] coronary artery of [place] heart without angina pectoris I25.10 Coronary Disease-Associated Artery/Lesion type: [place] artery [place] vs. transplanted heart: [place] heart Associated angina: without angina Hypercapnic respiratory failure J96.92 Respiratory acidosis with metabolic acidosis E87.4 Urinary tract infection with hematuria, site unspecified N39.0; R31.9 Urinary tract infection type: site unspecified Hematuria presence: with hematuria Iron deficiency anemia, unspecified iron deficiency anemia type D50.9 Iron deficiency anemia type: unspecified iron deficiency Primary hypertension I10 Hypertension type: primary hypertension Lactic acid acidosis E87.20 History of pulmonary embolism Z86.711
--- NOTE | 2024-08-19 13:03 | NMCV_ITS ---
NM floresita perf SPECT r/s* [id number] Ayah Sanchez Age: 78 Gender: F : 1945 Exam Date: 08/19/2024 08:03 Ordering Phys: Guicho Chavarria MD ([email or web address]) Technologist: HENRY Kaplan Exam Location: [facility] Indications: cp STRESS TEST [facility] IMAGE PROTOCOL Rest/Stress 1 Lexiscan Day Radiopharmaceutical Dose (mCi) Administration Site Administered by Rest: Tc-99m 10.8 IV Hellen Phelan STATISTICAL ASSISTANT Sestamibi Stress:Tc-99m 32.5 IV Hellen Presleygle, STATISTICAL ASSISTANT Sestamibi Rest: 19-Aug-2024 60 Discovery 630 Stress: 19-Aug-2024 30 Discovery 630 0.4mg Lexiscan. Supine position only as patient was unable to lay prone. Patient did attempt to do prone imaging was unable to hold the position with arms up while laying on her stomach. SPECT RESULTS Technical Quality: Good Raw Data Analysis: Normal Image Corrections: No attenuation or motion correction applied Summed Stress Score: 7 Summed Rest Score: 2 Summed Difference Score: 5 PERFUSION FINDINGS Moderate area of moderately decreased tracer uptake involving the basal and mid inferolateral, basal and mid anterolateral egments. Significant reversibility was noted in these areas. FUNCTIONAL RESULTS (calculated via Gated SPECT) Stress Image LV EF (%): 57 Stress EDV (mL):103 TID: 1.05 Stress ESV (mL):44 FUNCTIONAL FINDINGS: Segmental wall motion analysis revealing mild hypokinesia of the LV apex IMPRESSIONS 1. Myocardial perfusion imaging revealing moderate area of moderately decreased tracer uptake involving the inferolateral and anterolateral segments with significant reversibility, suggesting myocardial scarring with ischemia, predominantly in the distribution of the circumflex artery with some involvement of the Left anterior descending artery. 2. Normal LV ejection fraction of 57%. 3. LV wall motion analysis revealing mild hypokinesia of the LV apex 4. LV volume, upper limit of normal. Compared to study from 08/09/2022, the ischemia appears to be new Dr Guicho Chavarria MD FACC (Electronically Signed) Final Date: 19 August 2024 12:26 S
[2024-08-19] MEDS: ipratropium-albuterol 3 mL Neb INHALATION ×2 (13:16→20:58)
--- NOTE | 2024-08-19 14:34 | PC.SOCIAL ---
IMM updated IMM dated and initialed, copy given to patient and copy placed in chart.
[2024-08-19] MEDS: loperamide 2 mg Capsule PO (15:17)
[2024-08-19] MEDS: pantoprazole DR 40 mg Tablet PO (17:31)
[2024-08-19] MEDS: cefdinir 300 MG CAPSULE PO (17:31)
[2024-08-19] MEDS: enoxaparin 100 mg/mL Syringe 90 MG SUBCUT (17:31)
[2024-08-19] MEDS: budesonide 0.5 mg/2 mL Neb INHALATION (20:58)
[2024-08-19] MEDS: ropinirole 0.25 mg Tablet 0.5 MG PO (21:08)
[2024-08-20] VITALS (7 sets, daily range): BP systolic 118–156; BP diastolic 69–80; PULSE 57–89; RESP 16–21; TEMP 36.6–36.7; O2SAT 90–96
[2024-08-20] MEDS: ipratropium-albuterol 3 mL Neb INHALATION ×2 (03:01→07:40)
[2024-08-20 04:53] LABS: Basophils % 0.3 %; Eosinophils # 0.1 10^3/uL (0.0-0.8); Eosinophils % 0.6 %; Hematocrit 35.5 % (36-47); Lymphocytes # 1.9 10^3/uL (0.8-4.8); Mean Corpuscular HGB Conc 30.4 g/dL (30-55); Mean Corpuscular Hemoglobin 26.6 pg (27-33); Mean Corpuscular Volume 87.4 fl (85-98); Mean Platelet Volume 10.5 fL (7.4-10.4); Monocytes % 7.7 %; Neutrophils # 8.94 10^3/uL (1.8-7.7); Neutrophils % 71.5 %; Nucleated Red Blood Cells % 0.2 %; Platelet Count 338 10^3/cmm (157-399); Red Blood Count 4.06 10^6/uL (3.85-5.65); Red Cell Distribution Width 14.6 % (12.1-15.1)
[2024-08-20 05:09] LABS: Anion Gap 13.6 (5-19); Blood Urea Nitrogen 41 mg/dL (8-23); Calcium 8.7 mg/dL (8.5-10.5); Carbon Dioxide 27 mmol/L (22-29); Chloride 105 mmol/L (98-107); Creatinine Clr Calc Pharmacy 30.6283; Glucose 127 mg/dL (65-115); Osmolality Calculated 306 mOsm/kg (285-295); Potassium 3.6 mmol/L (3.5-5.1); Sodium 142 mmol/L (136-145)
[2024-08-20] MEDS: levothyroxine 25 mcg Tablet PO (05:49)
[2024-08-20] MEDS: budesonide 0.5 mg/2 mL Neb INHALATION (07:40)
--- NOTE | 2024-08-20 08:35 | P.PN_ITS ---
Subjective 2 Subjective: Patient doing well. No chest pain. Vitals/I&O/Wt Last Vital Signs Temp 98.0 F 08/20/24 07:29 Pulse 60 08/20/24 07:50 Resp 16 08/20/24 07:41 BP 156/74 08/20/24 07:29 Pulse Ox 93 08/20/24 07:41 O2 Del Method Nasal Cannula 08/20/24 07:41 O2 Flow Rate 1 08/20/24 07:41 FiO2 45 08/17/24 20:20 08/19/24 08/20/24 08/20/24 22:59 06:59 14:59 Intake Total 170 / 420 300 / 720 Output Total 750 / 750 Balance -580 / -330 300 / -30 Weight last 48 hrs Weight 190 lb 6.4 oz Weight 191 lb 12.835 oz Physical Exam 2 Narrative: GENERAL: Patient is alert, awake and oriented x3. [] NECK: No jugular vein distension. [] HEENT: No cyanosis. No icterus. No pallor. [] HEART: Regular S1 and S2. No murmur, rub or gallop. [] LUNGS: Clear to auscultate bilaterally. [] CENTRAL NERVOUS SYSTEM: Grossly nonfocal. [] EXTREMITIES: Lower extremities with 1+ edema bilaterally Urinary Catheter Management: Marinelli: Cath Placed During This Visit: yes Reason for Continuing Indwelling Catheter: Accurate Measurement of Urinary Output in Critically Ill Patients Urinary Catheter Date of Insertion: 08/14/24 Urinary Catheter Time of Insertion: 15:17 Data 08/20/24 04:20 08/20/24 04:20 Micro: Microbiology 08/17/24 11:42 E. coli Shiga-like Toxin (PCR) - Final Stool Campylobacter (PCR) - Final 08/14/24 12:55 Blood Culture - Final Blood NO GROWTH AFTER 5 DAYS 08/14/24 12:50 Blood Culture - Final Blood NO GROWTH AFTER 5 DAYS A&P Assessment and plan (1) Atherosclerotic heart disease of [place] coronary artery with unstable angina pectoris: (2) CHF (congestive heart failure): (3) Bilateral carotid artery stenosis: (4) Mixed dyslipidemia: (5) History of pulmonary embolism: (6) Respiratory acidosis with metabolic acidosis: (7) Acute kidney injury superimposed on chronic kidney disease: Plan Patient is chest pain-free at this time. We will continue with medical therapy. If continues or has worsening chest pain, can proceed with coronary angiogram. Patient also does not want to have coronary angiogram secondary to risk to kidneys Thank you for involving us with care of this patient. Please call with questions. Patient is stable for discharge from cardiology standpoint PDMP PDMP Reviewed: Not Reviewed Attestations 2 Medical Necessity Statement*: Care expected to cross 2 midnights. Coding Level of Care Code Acute Code for g Fwd Diagnoses Atherosclerosis of [place] coronary artery of [place] heart with unstable angina pectoris I25.110 [place] vs. transplanted heart: [place] heart Acute on chronic diastolic congestive heart failure I50.33 Heart failure type: diastolic Heart failure chronicity: acute on chronic Bilateral carotid artery stenosis I65.23 Mixed dyslipidemia E78.2 History of pulmonary embolism Z86.711 Respiratory acidosis with metabolic acidosis E87.4 Acute kidney injury superimposed on chronic kidney disease N17.9; N18.9
[2024-08-20] MEDS: oxybutynin chloride XL 5 MG TABLET 10 MG PO (08:36)
[2024-08-20] MEDS: amlodipine 10 mg Tablet PO (08:36)
[2024-08-20] MEDS: cefdinir 300 MG CAPSULE PO (08:36)
[2024-08-20] MEDS: isosorbide mononitrate ER 30 mg Tablet PO (08:36)
[2024-08-20] MEDS: pantoprazole DR 40 mg Tablet PO (08:37)
[2024-08-20] MEDS: FUROsemide 40 mg Tablet PO (08:37)
[2024-08-20] MEDS: clopidogrel 75 mg Tablet PO (08:37)
--- NOTE | 2024-08-20 11:12 | PM.DCS ---
Discharge Providers Date of Admission: 08/14/24 15:27 Date of Discharge: August 20, 2024 Attending Provider at Admission: Ralph Cantu MD Attending Provider at Discharge: Robinson Garcia DO Consults: Cardiology Primary Care Provider: Juan Carlos Sherman MD Diagnoses at Discharge Discharge Diagnosis (1) Atherosclerotic heart disease of [place] coronary artery with unstable angina pectoris: Status: Acute Qualifiers: [place] vs. transplanted heart: [place] heart Qualified Code(s): I25.110 - Atherosclerotic heart disease of [place] coronary artery with unstable angina pectoris (2) CHF (congestive heart failure): Status: Chronic Qualifiers: Heart failure type: diastolic Heart failure chronicity: acute on chronic Qualified Code(s): I50.33 - Acute on chronic diastolic (congestive) heart failure (3) Bilateral carotid artery stenosis: Status: Acute (4) Mixed dyslipidemia: Status: Acute (5) History of pulmonary embolism: Status: Acute (6) Respiratory acidosis with metabolic acidosis: Status: Acute (7) Acute kidney injury superimposed on chronic kidney disease: Status: Acute Reason for Visit Reason for Visit: vomitting Brief History: Ayah Sanchez is a 78 year old female with past medical history of CAD, post PCI to LAD and ostial RCA D, COPD chronically on 2 L of oxygen supplementation, hypertension, possibly type 2 diabetes mellitus as per the chart though not on any antidiabetic medications, chronic iron deficiency anemia, carotid artery disease presents to the ER today because of ongoing nausea and vomiting which started acutely today morning at 8 AM. Patient has been having dysuria with burning micturition for over 3 to 4 weeks. Denies any abdominal pain but complains of diarrhea occasionally as well. Denies any bleeding. Patient states she had multiple bilious vomiting today. Denies any bleeding or hematemesis. When present to the ER she developed hypotension requiring Levophed. Currently on 8 mics. ABG shown acidosis with pH of 7.2 hence she was placed on BiPAP with concerns for hypercapnic respiratory failure. Currently awake and alert without any distress. When taken off BiPAP on room air saturating down to low 70s requiring 4 L to maintain saturation over 88%. Hospital Course Hospital Course Patient was diagnosed with septic shock and required Levophed. She was started on bicarb drip and empirically started on vancomycin and Zosyn. She had hypercapnic respiratory failure and placed on BiPAP oxygen. The following day patient had bradycardia and her beta-blockers were on hold. Followed by hypotension again and restarted on Levophed. Patient then complained of chest pain Nitropaste was started and cardiology was consulted. Patient was kept on heparin troponins were done and she was given extra dose of Plavix and the Nitropaste was started. Patient continued to improve over the next few days. Stress test was done on 08/19/2024 showing moderate syed-infarct ischemia. The patient had no further chest pain I discussed with Dr. Chavarria. We agreed to add Imdur and follow as an outpatient once she overcomes her infection. Physical Exam Narrative: Patient is alert and oriented no acute distress Heart distant heart sounds no loud murmur Lungs diminished throughout with bilateral crackles. Abdomen soft nontender nondistended positive bowel sounds no hepatosplenomegaly Extremities no clubbing cyanosis or edema Urinary Catheter Management: Marinelli: Cath Placed During This Visit: yes Reason for Continuing Indwelling Catheter: Accurate Measurement of Urinary Output in Critically Ill Patients Urinary Catheter Date of Insertion: 08/14/24 Urinary Catheter Time of Insertion: 15:17 Discharge Data Studies Completed and Pending Completed Studies During Hospitalization Category Date Time Status CT abdomen pelvis wo con [id number] Stat Cat Scan 08/14/24 12:[address] chest abdpel w/*[id number] Stat Cat Scan 08/14/24 15:37 Completed Sestamibi Stress Test Request Routine Exams 08/18/24 11:52 Draft XR chest 1V portable [id number] Routine Exams 08/16/24 09:41 Completed XR chest 1V portable [id number] Stat Exams 08/15/24 12:54 Completed NM floresita perf SPECT r/s* [id number] Routine Nuc Med 08/19/24 13:03 Completed CV. echo complete* [id number] Routine Ultrasound 08/14/24 18:06 Completed Pending at discharge Category Date Time Status OVA and Parasites, Conc and PE Routine Lab 08/14/24 18:06 Results Salmonella / Shigella / Campy Routine Lab 08/14/24 18:06 Results Radiology Impressions Abdomen/Pelvis CT 08/14/24 12:37 IMPRESSION: 1. No acute abdominal or pelvic abnormalities identified. 2. Moderate cardiomegaly. 3. Ectatic abdominal aorta without aneurysmal dilatation. 4. No renal obstruction. 5. No GI tract obstruction or colitis. Chest/Abdomen/Pelvis CT 08/14/24 15:37 IMPRESSION: 1. Moderate cardiomegaly. 2. No evidence of acute intrathoracic process. 3. Enlarged pulmonary trunk and main pulmonary arteries suggestive of pulmonary arterial hypertension. IMPRESSION: 1. No evidence of acute abdominal or pelvic process. 2. 2.5 cm infrarenal abdominal aortic aneurysm. COMMENTS: Consistent with the [employer]'s Incidental Findings Committee white paper (J Am Bebe Radiol 2018): Any incidental renal lesion less than 1 cm or classified as too small to characterize, or any incidental cystic renal lesion characterized as simple-appearing, is likely benign. No follow-up imaging is recommended for these lesions per consensus recommendations based on imaging criteria. Chest X-Ray 08/16/24 09:41 Impression: 1. Cardiomegaly with diminished pulmonary vascular congestion. 2. Decrease in left pleural thickening. 2. Pulmonary opacity in left lower lobe which may represent vascular congestion, atelectasis and/or pneumonia. Laboratory Results WBC 12.50 10^3/uL (3.29-11.43) H 08/20/24 04:20 RBC 4.06 10^6/uL (3.85-5.65) 08/20/24 04:20 Hgb 10.80 g/dL (11.27-16.99) L 08/20/24 04:20 Hct 35.5 % (36-47) L 08/20/24 04:20 MCV 87.4 fl (85-98) 08/20/24 04:20 MCH 26.6 pg (27-33) L 08/20/24 04:20 MCHC 30.4 g/dL (30-55) 08/20/24 04:20 RDW 14.6 % (12.1-15.1) 08/20/24 04:20 Plt Count 338 10^3/cmm (157-399) 08/20/24 04:20 MPV 10.5 fL (7.4-10.4) H 08/20/24 04:20 Neut % (Auto) 71.5 % 08/20/24 04:20 Lymph % (Auto) 15.0 % 08/20/24 04:20 Love % (Auto) 7.7 % 08/20/24 04:20 Eos % (Auto) 0.6 % 08/20/24 04:20 Baso % (Auto) 0.3 % 08/20/24 04:20 Neut # (Auto) 8.94 10^3/uL (1.8-7.7) H 08/20/24 04:20 Lymph # (Auto) 1.9 10^3/uL (0.8-4.8) 08/20/24 04:20 Love # (Auto) 1.0 10^3/uL (0.2-0.9) H 08/20/24 04:20 Eos # (Auto) 0.1 10^3/uL (0.0-0.8) 08/20/24 04:20 Baso # (Auto) 0.0 10^3/uL (0.0-0.1) 08/20/24 04:20 Nucleated RBC % (auto) 0.2 % 08/20/24 04:20 Nucleated RBCs # 0.0 /100WBC 08/20/24 04:20 D-Dimer 0.48 ug/mLFEU (0-0.59) 08/14/24 12:30 Specimen Type Arterial 08/15/24 12:40 Sample Site Radial, right 08/15/24 12:40 ABG pH 7.37 (7.35-7.45) 08/15/24 12:40 ABG pCO2 40.8 mmHg (35-45) 08/15/24 12:40 ABG pO2 51.9 mmHg (80.0-100.0) L 08/15/24 12:40 ABG PO2/FiO2 Ratio 162 08/15/24 12:40 ABG HCO3 23.6 mmol/L (22-26) 08/15/24 12:40 ABG O2 Saturation 86.1 08/15/24 12:40 ABG Base Excess -1.6 mmol/L (-2.0-2.0) 08/15/24 12:40 Satnam Test Pos 08/15/24 12:40 A-a O2 Gradient 16.4 mmHg (5-10) H 08/15/24 12:40 Hematocrit 24.3 % (37-47) L 08/15/24 12:40 Hgb O2 Saturation 83.6 % (95-100) L 08/15/24 12:40 Carboxyhemoglobin 1.3 %THgb (0.4-20.1) 08/15/24 12:40 Methemoglobin 1.6 % (0.4-1.5) H 08/15/24 12:40 Total Hemoglobin 7.9 g/dL (12-16) L 08/15/24 12:40 Sodium 141.0 mmol/L (131-143) 08/15/24 12:40 Potassium 3.7 mmol/L (3.5-5.0) 08/15/24 12:40 Glucose 157.0 mg/dL (70-115) H 08/15/24 12:40 Ionized Calcium 1.1 mmol/L (1.1-1.4) 08/15/24 12:40 O2 Delivery Device Nc 08/15/24 12:40 O2 Liters/Min 3.0 % 08/15/24 12:40 FiO2 32.0 % 08/15/24 12:40 Tidal Volume 0.46 08/14/24 15:45 PEEP 8.0 cmH20 08/14/24 15:45 Water Softener Servicer And Installer ID Gd 08/15/24 12:40 Sodium 142 mmol/L (136-145) 08/20/24 04:20 Potassium 3.6 mmol/L (3.5-5.1) 08/20/24 04:20 Chloride 105 mmol/L (98-107) 08/20/24 04:20 Carbon Dioxide 27 mmol/L (22-29) 08/20/24 04:20 Anion Gap 13.6 (5-19) 08/20/24 04:20 BUN 41 mg/dL (8-23) H 08/20/24 04:20 Creatinine 1.5 mg/dL (0.5-0.9) H 08/20/24 04:20 GFR Calculation Not Reportable 08/20/24 04:20 Glucose 127 mg/dL (65-115) H 08/20/24 04:20 Estimat Average Glucose 120 08/14/24 12:30 Hemoglobin A1c 5.8 % (4.0-6.0) 08/14/24 12:30 Calculated Osmolality 306 mOsm/kg (285-295) H 08/20/24 04:20 Lactic Acid 2.0 mmol/L (0.5-2.2) 08/15/24 03:55 Lactic Acid (Sepsis) 3.5 mmol/L (0.5-2.2) H 08/14/24 15:13 Calcium 8.7 mg/dL (8.5-10.5) 08/20/24 04:20 Phosphorus 2.7 mg/dL (2.5-4.5) 08/17/24 04:16 Magnesium 2.0 mg/dL (1.7-2.3) 08/17/24 04:16 Iron 12 ug/dL (37-145) L 08/14/24 16:19 TIBC 366 mcg/dl 08/14/24 16:19 % Saturation 3.2 % (20-50) L 08/14/24 16:19 Unsat Iron Binding 354 ug/dL (112-347) H 08/14/24 16:19 Total Bilirubin 0.3 mg/dL (0.15-1.2) 08/19/24 04:04 AST 38 U/L (0-32) H 08/19/24 04:04 ALT 84 U/L (0-33) H 08/19/24 04:04 Alkaline Phosphatase 78 U/L (35-105) 08/19/24 04:04 Troponin T Baseline 233 ng/L (0-10) H* 08/16/24 09:59 Troponin T 120 Minute 223.1 ng/L (0-10) H 08/16/24 11:47 Delta Troponin T -9.9 ABS# (0-10) L 08/16/24 11:47 Troponin T Hi Sens 6Hr 221.3 ng/L (0-10) H 08/16/24 15:22 Troponin T Hi Sens 6Hr Delta -11.7 ng/L (0-12) L 08/16/24 15:22 Total Protein 6.0 g/dL (6.6-8.7) L 08/19/24 04:04 Albumin 3.6 g/dL (3.5-5.2) 08/19/24 04:04 Globulin 2.4 g/dL (1.3-4.6) 08/19/24 04:04 Triglycerides 78 mg/dL (0-150) 08/15/24 03:55 Cholesterol 146 mg/dL (0-200) 08/15/24 03:55 LDL Cholesterol, Calc 93 mg/dL (50-129) 08/15/24 03:55 HDL Cholesterol 37 mg/dL (60-100) L 08/15/24 03:55 LDL/HDL Ratio 2.51 RATIO (0.00-3.22) 08/15/24 03:55 Cholesterol/HDL Ratio 3.95 mg/dL (0.0-4.40) 08/15/24 03:55 Lipase 76 U/L (13-60) H 08/14/24 12:30 Vitamin B12 474 pg/mL (232-1245) 08/14/24 16:19 Folate 8.0 ng/mL (4.8-37.3) 08/15/24 03:55 Procalcitonin 0.32 ng/mL (0-0.5) 08/15/24 03:55 TSH 8.70 uIU/mL (0.27-4.20) H 08/14/24 16:19 Free T4 1.20 ng/dL (0.82-1.77) 08/15/24 03:55 Free T3 1.7 PG/ML (2.0-4.4) L 08/15/24 03:55 Urine Color Yellow (Yellow) 08/14/24 15:15 Urine Appearance Turbid (CLEAR) A 08/14/24 15:15 Urine pH 5.0 (5-7) 08/14/24 15:15 Ur Specific [place] 1.020 (1.005-1.030) 08/14/24 15:15 Urine Protein 2+ (Negative) A 08/14/24 15:15 Urine Glucose (UA) Trace (Normal) H 08/14/24 15:15 Urine Ketones Trace (Negative) 08/14/24 15:15 Urine Blood Trace (Negative) A 08/14/24 15:15 Urine Nitrate Negative (Negative) 08/14/24 15:15 Urine Bilirubin Negative (Negative) 08/14/24 15:15 Urine Urobilinogen 1.0 mg/dL (Negative) 08/14/24 15:15 Ur Leukocyte Esterase 2+ (Negative) A 08/14/24 15:15 Urine RBC 21-50 /hpf (0-2) H 08/14/24 15:15 Urine WBC >100 /hpf (0-5) H 08/14/24 15:15 Ur Squamous Epith Cells 6-10 /hpf (0-5) 08/14/24 15:15 Amorphous Sediment Trace /hpf 08/14/24 15:15 Urine Bacteria Trace /hpf (NONE) 08/14/24 15:15 Hyaline Casts 88.53 /lpf 08/14/24 15:15 Ur Oval Fat Bodies 1+ /hpf 08/14/24 15:15 Nasal MRSA (PCR) Not detected (Not Detecte) 08/14/24 17:45 Salicylates < 0.3 mg/dL (3-10) L 08/14/24 12:30 Urine Opiates Screen Positive ng/mL (Negative) H 08/14/24 15:15 Acetaminophen < 5.0 ug/mL (10-30) L 08/14/24 12:30 Ur Barbiturates Screen Negative ng/mL (Negative) 08/14/24 15:15 Ur Phencyclidine Scrn Negative ng/mL (Negative) 08/14/24 15:15 Ur Amphetamines Screen Negative ng/mL (Negative) 08/14/24 15:15 U Benzodiazepines Scrn Negative ng/mL (Negative) 08/14/24 15:15 Urine Cocaine Screen Negative ng/mL (Negative) 08/14/24 15:15 U Marijuana (THC) Screen Negative ng/mL (Negative) 08/14/24 15:15 Ethyl Alcohol < 10 mg/dL (0-10) 08/14/24 12:30 Serum Ketones Negative (Negative) 08/14/24 17:20 C. difficile (PCR) Negative (Negative) 08/17/24 11:42 Blood Type A Positive 08/15/24 12:55 Rho(D) Type Rh positive 08/15/24 12:55 Antibody Screen Negative 08/15/24 12:55 Crossmatch See Detail 08/15/24 12:55 Vitals Last Vital Signs Temp 98.0 F 08/20/24 07:29 Pulse 60 08/20/24 07:50 Resp 16 08/20/24 07:41 BP 156/74 08/20/24 07:29 Pulse Ox 93 08/20/24 07:41 O2 Del Method Nasal Cannula 08/20/24 07:41 O2 Flow Rate 1 08/20/24 07:41 FiO2 45 08/17/24 20:20 Discharge Plan Discharge Patient Disposition: Home Condition: Stable Prescriptions: New furosemide 40 mg Tablet 40 mg PO DAILY@0800 Qty: 30 0RF isosorbide mononitrate 30 mg Tablet Extended Release 24 Hr 30 mg PO DAILY Qty: 30 0RF levothyroxine 25 mcg Tablet 25 mcg PO QAM Qty: 30 0RF cefdinir 300 mg Capsule 300 mg PO BID Qty: 20 0RF Continued albuterol sulfate 2.5 mg /3 mL (0.083 %) solution for nebulization 2.5 mg inhalation QID PRN (Reason: shortness of breath or wheezing) Qty: 75 3RF fluticasone propionate [Flonase Allergy Relief] 50 mcg/actuation spray,suspension 2 spray intranasal DAILY Qty: 16 0RF Rx Instructions: administer into each nostril methenamine hippurate 1 gram tablet 1 g PO BID Qty: 60 2RF ascorbate calcium (vitamin C) 500 mg tablet 500 mg PO DAILY Qty: 60 1RF ferrous sulfate [Feosol] 325 mg (65 mg iron) tablet 325 mg PO .q48 90 Days Qty: 45 1RF (DME) Ankle Brace Misc See Rx Instructions .Route Qty: 1 0RF Rx Instructions: As directed nitroglycerin 0.4 mg tablet, sublingual See Rx Instructions .ROUTE .COMPLEX Qty: 25 2RF Dose Instruction: DISSOLVE 1 TABLET UNDER THE TONGUE EVERY 5 MINUTES NEEDED FOR CHEST PAIN. DO NOT EXCEED A TOTAL OF 3 DOSES IN 15 MINUTES. Rx Instructions: DISSOLVE 1 TABLET UNDER THE TONGUE EVERY 5 MINUTES NEEDED FOR CHEST PAIN. DO NOT EXCEED A TOTAL OF 3 DOSES IN 15 MINUTES. metoprolol tartrate 25 mg tablet See Rx Instructions .ROUTE .COMPLEX Qty: 180 2RF Dose Instruction: TAKE 1 TABLET BY MOUTH TWICE DAILY Rx Instructions: TAKE 1 TABLET BY MOUTH TWICE DAILY cetirizine 10 mg tablet 10 mg PO DAILY PRN (Reason: allergy symtoms) Qty: 90 1RF clopidogrel 75 mg tablet See Rx Instructions .ROUTE .COMPLEX Qty: 90 3RF Dose Instruction: TAKE 1 TABLET BY MOUTH EVERY DAY Rx Instructions: TAKE 1 TABLET BY MOUTH EVERY DAY amlodipine 10 mg tablet See Rx Instructions .ROUTE .COMPLEX Qty: 90 3RF Dose Instruction: TAKE 1 TABLET BY MOUTH EVERY DAY Rx Instructions: TAKE 1 TABLET BY MOUTH EVERY DAY albuterol sulfate [Ventolin HFA] 90 mcg/actuation HFA aerosol inhaler 2 puff inhalation Q4H PRN (Reason: shortness of breath or wheezing) Qty: 18 5RF pantoprazole 40 mg tablet,delayed release (DR/EC) 40 mg PO BID Qty: 180 0RF Eliquis 2.5 mg tablet 2.5 mg PO BID Changed potassium chloride 10 mEq capsule, extended release 40 meq PO DAILY Qty: 120 0RF Held losartan 50 mg tablet 50 mg PO DAILY Qty: 90 3RF Hold Instructions: Resume on 08/27/24. Hold until follow-up with cardiology Discharge Orders: Discharge Order (Routine); Ordered 08/20/24 Ordered By: Robinson Garcia Referrals: Juan Carlos Sherman MD [Primary Care Provider, [facility]] - 09/04/24 9:30 am Discharge Diet: Cardiac Discharge Activity: Increase activity as tolerated Plan of Treatment: Please note you are on multiple new medicationsL: Isosorbide mononitrate will help blood pressure and also help angina (chest pain) You are on levothyroxine for newly diagnosed hypothyroidism your TSH was 8 Furosemide is started for congestive heart failure Furosemide and potassium are typically [place] and I have increased your potassium supplementation to 40milliequivalents per day Lastly you are to finish 10 more days of antibiotic for possible pneumonia/bronchitis Hold losartan until you see your hotel desk clerk. You have been started on a new medication that can lower blood pressure and since we have not restarted your metoprolol at yet I do not want to your blood pressure being too low Discharge Attestations Time Spent in Discharge Care*: less than 30 min Quality Metrics Clinical Quality Measures [ No reported AMI, CVA or VTE this stay] Coding Level of Care Code Acute Code for Chg Fwd Diagnoses Atherosclerosis of [place] coronary artery of [place] heart with unstable angina pectoris I25.110 [place] vs. transplanted heart: [place] heart Acute on chronic diastolic congestive heart failure I50.33 Heart failure type: diastolic Heart failure chronicity: acute on chronic Bilateral carotid artery stenosis I65.23 Mixed dyslipidemia E78.2 History of pulmonary embolism Z86.711 Respiratory acidosis with metabolic acidosis E87.4 Acute kidney injury superimposed on chronic kidney disease N17.9; N18.9
--- NOTE | 2024-08-20 14:10 | PC.NURSE ---
discharge instructions given and explained.pt verb understanding of instructions.discharge meds provided by meds to beds program.discharged via w/c to exit at this time.[facility] to drive pt home
== END 2024-08-20 14:12 | disposition home or self-care (01) | DRG 871 ==
LOC: ER 15:48 → ICU 15:58 → CSU 08-19 16:39
PROVIDERS: Internal Medicine; Admitting Provider Student in an Organized Health Care Education/Training Program; Emergency Provider Family Medicine; PCP Family Medicine; Visit Provider Internal Medicine
DX: A41.9 Sepsis, unspecified organism (principal); I50.33 Acute on chronic diastolic (congestive) heart failure; R65.21 Severe sepsis with septic shock; J96.22 Acute and chronic respiratory failure with hypercapnia; I25.110 Atherosclerotic heart disease of native coronary artery with unstable angina pectoris; I13.0 Hypertensive heart and chronic kidney disease with heart failure and stage 1 through stage 4 chronic kidney disease, or unspecified chronic kidney disease; E87.4 Mixed disorder of acid-base balance; N17.9 Acute kidney failure, unspecified; J44.1 Chronic obstructive pulmonary disease with (acute) exacerbation; N39.0 Urinary tract infection, site not specified; E87.20 Acidosis, unspecified; N18.9 Chronic kidney disease, unspecified; E11.22 Type 2 diabetes mellitus with diabetic chronic kidney disease; I65.23 Occlusion and stenosis of bilateral carotid arteries; E78.2 Mixed hyperlipidemia; D50.9 Iron deficiency anemia, unspecified; Z99.81 Dependence on supplemental oxygen; Z87.891 Personal history of nicotine dependence; I48.91 Unspecified atrial fibrillation; Z86.711 Personal history of pulmonary embolism; Z79.01 Long term (current) use of anticoagulants; I25.2 Old myocardial infarction; Z79.02 Long term (current) use of antithrombotics/antiplatelets
CPT/HCPCS: 36415; 36430; 36600; 51702; 71045; 71260; 74176; 74177; 78452; 80048; 80051; 80053; 80061; 80306; 80307; 81001; 82009; 82274; 82330; 82607; 82746; 82805; 83036; 83540; 83550; 83605; 83630; 83690; 83735; 84100; 84145; 84439; 84443; 84481; 84484; 85014; 85018; 85025; 85378; 86403; 86850; 86900; 86920; 87040; 87045; 87086; 87177; 87209; 87427; 87449; 87493; 93005; 93017; 93306; 94640; 94660; 94664; 94669; 96365; 96366; 96372; 96374; 96375; 96376; 99291; 99292; A9500; J0696; J1650; J1756; J1938; J2270; J2405; J2470; J2543; J2785; J2919; J3372; J3490; J7030; J7070; J7120; J7626; J9999; P9016

== ENCOUNTER 2024-09-06 17:26 | Inpatient (IN) | payer MEDICARE, MEDICAID, SELFPAY ==
--- OUTSIDE RECORDS SUMMARY | 2023-09-12 08:00 | XMS_ITS ---
Author Organization [facility] Address [address], [place] [id number] Care Team Providers Care Orthopaedic Nurse Name Role Phone Regulo Kelley DO Primary Care Provider Unavail able Ness PINTO, Jesus Unavailable [phone] Allergies Allergen (clinical drug ingredient) Drug/Non Drug Allergy documented on EMR Reaction Allergy Type Onset Date Status sulfa hives Drug Allergy Active aspirin aspirin dizziness Drug Allergy Active REASON FOR VISIT Patient states she is here today for {}, Pump reprogramming (turn off), FALL Medications Medication SIG (Take, Route, Frequency, Duration) Notes Start Date End Date Status nitroglycerin 0.4 mg 1 tab(s) sublingual ly every 5 minutes 03/14/2023 Active morphine 10 mg/mL preservative-free as programmed intrathecally daily continuous rate Active Lasix 40 mg 1 tab(s) orally once a day for 30 day(s) Active Eliquis 2.5 mg as directed orally 2 times a day Active atorvastatin 80 mg 1 tab(s) orally once a day for 30 day(s) 03/14/2023 Active Protonix 20 mg 1 tab(s) orally once a day for 30 day(s) Active pantoprazole 40 mg 1 tab(s) orally once a day for 30 day(s) 03/14/2023 Active Ventolin HFA 90 mcg/inh 2 puff(s) inhale d every 6 hours 03/14/2023 Active Social History Tobacco Use: Social History Observation Description Date Details (start date - stop date) Current Smoker NA - NA alcohol Question Answer Notes Did you have a drink containing alcohol in the p ast year? No Points 0 Interpretation Negative Tobacco use: Question Answer Notes : current smoker Are you interested in quitting? Ready to quit How many cigarettes a day do you smoke? 11-20 How often do you smoke cigarettes? every day How soon after you wake up do you smoke your fir st cigarette? 6-30 min Encounters Encounter Location Date Provider Diagnosis [facility] [address], [place] [id number] 09/12/2023 Jesus Arzola Complex regional jose n syndrome I of lower limb, bilateral G90.523 ; Vertebrogenic low back pain M54.51 and Other chronic pain G89.29 Assessments Encounter Date Diagnosis (ICD Code) Assessment Notes Treatment Notes Treatment Clinical Notes Section Notes 09/12/2023 Complex regional pain syndrome I of lower limb, bilateral (ICD-10 - G90.523) CRPS diagnosed via previous provider for patient - history of intrathecal pump placement / infusion. Intrathecal pump . Plan discontinuation of intrathecal pump with referral for pump removal per patient request. Patient with history of repeated noncompliance and repeated dishonesty in regards to prior oral opioid medication usage, since discontinued. Patient with subsequent history of noncompliance with the Treatment Agreement in regards to illicit marijuana use. Dissolution of care was then initiated. Patient subsequently requested referral to Dr. Greenwood for continued intra-thecal pump management. Referral was made to Dr. Greenwood, per that patient request, however, Dr. Greenwood refused to accept this patient (stating that she already had too many pump patients) as per telephone conversation with this provider. Plan was made to again see this patient with the decision to manage patient's pain only via intrathecal route with taper over time to nil. Patient had been encouraged at multiple visits to seek out another provider who may be able to manage her intrathecal pump and (possible) oral opioid: patient had stated no interest and desired to have the pump removed. 09/12/2023 Vertebrogenic low back pain (ICD-10 - M54.51) Chronic lumbar spine pain 09/12/2023 Other chronic pain (ICD-10 - G89.29) Plan Of Treatment Medication Medication Name Sig Start Date Stop Date Notes morphine 10 mg/mL preservative-free as programmed intrathecally daily continuous rate Treatment Notes Assessment Notes Complex regional pain syndro me I of lower limb, bilateral CRPS diagnosed via previous provider for patient - history of intrathecal pump placement / infusion. Intrathecal pump . Plan discontinuation of intrathecal pump with referral for pump removal per patient request. Patient with history of repeated noncompliance and repeated dishonesty in regards to prior oral opioid medication usage, since discontinued. Patient with subsequent history of noncompliance with the Treatment Agreement in regards to illicit marijuana use. Dissolution of care was then initiated. Patient subsequently requested referral to Dr. Greenwood for continued intra-thecal pump management. Referral was made to Dr. Greenwood, per that patient request, however, Dr. Greenwood refused to accept this patient (stating that she already had too many pump patients) as per telephone conversation with this provider. Plan was made to again see this patient with the decision to manage patient's pain only via intrathecal route with taper over time to nil. Patient had been encouraged at multiple visits to seek out another provider who may be able to manage her intrathecal pump and (possible) oral opioid: patient had stated no interest and desired to have the pump removed. Vertebrogenic low back pain Chronic lumb ar spine pain Procedure Notes * Category Sub-Category Detail Notes intrathecal pump refill/ reprogramming Re-Program: procedure was performed by ynes alvarado nurse. The pump was interrogated prior to reprogramming and was found to be functioning properly. and a copy of a printout of the new pump settings was placed in the chart Next refill date: n/a Progress Notes * Ayah TURCIOS CDOB:[birth year] (78 yo F)Acc No.[id number]:09/12/2023 Patient: Ayah AMBROCIO Provider: Gwen Arzola :1945 A ge:77 Y S ex:Female Date:09/12/2023 Address:[address] [place] [address] Pcp:Regulo Kelley DO Subjective: * Chief Complaints: * 1 . Patient states she is here today for {}. 2. Pump reprogramming (turn off). 3. FALL. * HPI: L umbar Spine: 77 year old female presents with c/o pain f or c hronic duration i n the bilateral low back. This pain is described as constant aching. This pain extends into the BLE. The back pain is aggravated by bending and lifting. This pain is somewhat alleviated by resting. c /o tingling/numbness i ntermittently in the BLE. c /o weakness i n the lower extremities. Denies : previous therapy. injury: p chante fell > 20 years ago while on the job.? P revious Imaging/Studies: CT o f the T-spine on 07/25/14. I ntrathecal pain pump: Medtronic 40 ml pump: S ynchroMed II [id number], implanted 06/26/17 in [place], [place]. Pump status: morphine 10 mg/ml m inimal rate 0 .062 mg/day. Stafford volume: * * ml. Low reservoir alarm date 0 10/21/36 @ 2 ml. Pump status after update: morphine 10 mg/ml m inimal rate * * mg/day. Stafford volume: * * ml. Low reservoir alarm date? @ 2 ml. P revious Therapy: Previous therapy: p hysical therapy with benefit; chiropractic manipulation with benefit; TENS with benefit; ice/heat therapy with benefit; home exercises with benefit. Medication history: M SIR 30 mg. M edications: Phenergan (promethazine) 2 5 mg, 1 supp, rectally, QID prn nausea, 30 day(s), 120, Refills 2 (last prescribed 11/21/17). N on Compliance/Failure to Follow Treatment Agreement: Future violations WILL result in dissolution of treatment: ?as documented on 05/30/17; 01/15/18: patient was deemed intervention-only candidate for treatment at [facility] due to non - compliance with regards to oral opioids [intervention only to include intrathecal pump refills](see related telephone encounter); patient was subsequently discharged from clinic for illicit marijuana use - patient was allowed to be reinstated for purposes of continued intrathecal pump refills with recommended tapering to zero. Failure to bring prescribed medications to appointments: o n 12/06/12, 08/13/12, 12/15/11. Failure to take medication as prescribed: M SIR - 01/15/18 (short #52), 05/30/17 (short #30), 12/12/16 (short #17), 09/11/17 (short #26), 07/25/16 (vs. failure to secure - Rx reportedly fell into dog's water - short 43 tablets), 04/27/15 (vs. failure to secure - short 75 tablets), on 12/01/15 (vs. failure to secure - short 132 tablets), on 12/14/15 (short 13 tablets). Abnormal chromatography / mass spectrometry results: o n 06/23/20. Failure to secure medications/prescriptions: 0 09/24/13.? * Medical History: L ow back pain , Mid back pain, Reflex sympathetic dystrophy, lower extremity, Gastroesophageal reflux disease, Osteoporosis, Cervical dystonia, Carotid stenosis, Obesity, mild. * Surgical History: H ysterectomy, 1973, Placement of intrathecal pain pump, 01/06/95, Replacement of pain pump, 06/10/98, 12/12/01, 10/05/10 , Intrathecal pain pump / catheter replacement by Dr. Uriarte at [facility], 06/26/17, Carotid endarterectomy at [facility] by Dr. Whitaker, 12/2017, Cataract surgery, 07/10/18, 07/24/18, Colonoscopy with polypectomy, 10/2018, Biopsy scalp lesion, performed by Dr. Steven Barrera, 05/2021. * Hospitalization/Major Diagno stic Procedure: S evere vomiting (admitted for 3 days), 08/2009, Heart attack and blood clots, lung, treated at [facility], 09/2022, Blood transfusion, treated at [facility], 09/2022. * Medications: T aking atorvastatin 80 mg tablet 1 tab(s) orally once a day , Taking Eliquis(apixaban) 2.5 mg tablet as directed orally 2 times a day , Taking Lasix(furosemide) 40 mg tablet 1 tab(s) orally once a day , Taking morphine 10 mg/mL preservative-free solution as programmed intrathecally daily continuous rate , Taking nitroglycerin 0.4 mg tablet 1 tab(s) sublingually every 5 minutes , Taking pantoprazole 40 mg delayed release tablet 1 tab(s) orally once a day , Taking Protonix(pantoprazole) 20 mg delayed release tablet 1 tab(s) orally once a day , Taking Ventolin HFA(albuterol) 90 mcg/inh aerosol 2 puff(s) inhaled every 6 hours * Allergies: S ulfa: Hives, Aspirin: Dizziness. Objective: Therapeutic Interventions: Assessment: * Assessment: 1. C omplex regional pain syndrome I of lower limb, bilateral - G90.523 (Primary) ?2. V ertebrogenic low back pain - M54.51 3 . O ther chronic pain - G89.29 Plan: * Treatment: 2. V ertebrogenic low back pain Notes: Chronic lumbar spine pain 3. O thers Continue morphine solution, 10 mg/mL preservative-free, as programmed, intrathecally, daily continuous rate, Refills 0. * Procedure Codes: 6 2368 Electronic analysis and reprogramming of implanted medication pump for the administration of intrathecal medication(s), G8427 DOC MEDS VERIFIED W/PT OR RE * Preventive Medicine: Counseling: S moking Counseling Patient counselled on the dangers of tobacco use and urged to quit. 0 07/27/2023 P ain Management: Follow-up Plan documented: Y es Pain Screenin ASA Status Classification: s core: P 2. Screening / Special Tests: F all Risk Screening: N o falls in the past year as of: 07/27/2023 * Images: * Electronic signature of Rusty Arzola MD on 09/06/2024 at 05:32 PM CDT Sign off status: Pending * Provider: Gwen Arzola Date: 09/12/2023 Generated for Rhonda amin/Octavio/Jeremiah on: 0 09/06/2024 05:32 PM CDT History and Physical Notes * HPI (History of Present Illness) Category Sub-Category Detail Notes Category Not es Lumbar Spine injury: patient fell > 20 years ago while on the job tingling/numbness intermittently in th e BLE pain in the bilateral low back. This pain is described as constant aching. This pain extends into the BLE. The back pain is aggravated by bending and lifting. 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 Pump status: morphine 10 mg/ml minimal rate 0.062 mg/day. Stafford volume: ml. Low reservoir alarm date 10/21/36 @ 2 ml. Pump status after update: morphine 10 mg/ml minimal rate mg/day. Stafford volume: ml. Low reservoir alarm date @ 2 ml Previous Imaging/Studies CT of the T-spine o n 07/25/14 Non Compliance/Failure to Follow Treatment Agreement Failure to bring prescribed medications to appointments: on 12/06/12, 08/13/12, 12/15/11 Failure to take medication as prescribed : MSIR - 01/15/18 (short #52), 05/30/17 (short #30), 12/12/16 (short #17), 11/14/16 (short #26), 07/25/16 (vs. failure to secure - Rx reportedly fell into dog's water - short 43 tablets), 04/27/15 (vs. failure to secure - short 75 tablets), on 12/01/15 (vs. failure to secure - short 132 tablets), on 12/14/15 (short 13 tablets) Abnormal chromatography / ma ss spectrometry results: on 06/23/20 Failure to secure medications/prescripti ons: 09/24/13 Future violations WILL resul t in dissolution of treatment: as documented on 05/30/17; 01/15/18: gee youngblood was deemed intervention-only candidate for treatment at [facility] due to non - compliance with regards to oral opioids [intervention only to include intrathecal pump refills](see related telephone encounter); patient was subsequently discharged from clinic for illicit marijuana use - patient was allowed to be reinstated for purposes of continued intrathecal pump refills with recommended tapering to zero Physical Examination Category Sub-Category Detail Notes Section Note s ENT Hearing: grossly intact Chest Shape and expansion: normal expa nsion, equal bilaterally, respirations even and unlabored Neurological Psychiatric: alert and conversant Musculoskeletal Gait: broad-based Outcome Assessment: Findings:: Negative, care pl an not required Dermatology Skin inspection: pink, warm, dry, and int act General General appearence: well groomed, well no urished Build: mildly obese Head: normocephalic Eyes Conjunctiva: without injection
[2024-09-06] VITALS (10 sets, daily range): BP systolic 88–124; BP diastolic 47–72; PULSE 55–69; RESP 16–24; TEMP 36.6–36.7; O2SAT 92–97
--- OUTSIDE RECORDS SUMMARY | 2024-09-06 17:32 | XMS_ITS | Encounter Summary ---
Author Organization [facility] Address [address] [place] [address] Care Team Providers Care Supervisor Home Energy Consultant Name Role Phone Epi French MD Primary Care Provider [phone] Encounter Details Date Type Department Care Team (Latest Contact Info) Description 05/13/2002 Outpatient Historical [facility] Multidisciplinary Chronic Pain [address] [place] [phone] Solomon Puga MD NO ADDRESS ON FILE FIT/ADJUST NERV/SENS SYSTEM DEVICE (Primary Dx) Social History Tobacco Use Types Packs/Day Years Used Date Smoking Tobacco: Never Assessed Comments Unknown Sex and Gender Information Value Date Recorded Sex Assigned at Not on file 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
--- OUTSIDE RECORDS SUMMARY | 2024-09-06 17:33 | XMS_ITS | Encounter Summary ---
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
--- OUTSIDE RECORDS SUMMARY | 2024-09-06 17:33 | XMS_ITS | Encounter Summary ---
Author Organization [facility] Address [address] [place] [address] Care Team Providers Care Wet End Helper Name Role Phone Epi French MD Primary Care Provider [phone] Encounter Details Date Type Department Care Team (Latest Contact Info) Description 10/31/2002 Outpatient Historical [facility] Multidisciplinary Chronic Pain [address] [place] [phone] Cabrera Altamirano MD NO ADDRESS ON FILE REFLEX SYMPATH DYSTRPHY LOWER LIMB (Primary Dx) Social History Tobacco Use Types Packs/Day Years Used Date Smoking Tobacco: Never Assessed Comments Unknown Sex and Gender Information Value Date Recorded Sex Assigned at Not on file 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
--- OUTSIDE RECORDS SUMMARY | 2024-09-06 17:33 | XMS_ITS | Encounter Summary ---
Author Organization [facility] Address [address] [place] [address] Care Team Providers Care Support Manager Name Role Phone Epi French MD Primary Care Provider [phone] Encounter Details Date Type Department Care Team (Latest Contact Info) Description 01/11/2002 Outpatient Historical [facility] Multidisciplinary Chronic Pain [address] [place] [phone] Cabrera Altamirano MD NO ADDRESS ON FILE REFLEX SYMPATH DYSTRPHY LOWER LIMB (Primary Dx) Social History Tobacco Use Types Packs/Day Years Used Date Smoking Tobacco: Never Assessed Comments Unknown Sex and Gender Information Value Date Recorded Sex Assigned at Not on file Legal Sex Female 3:09 AM RESIDENTIAL APPRAISER Gender Identity Not on file Sexual Orientation Not on file documented as of this encounter Plan of Treatment Not on file documented as of this encounter Visit Diagnoses Diagnosis 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
--- OUTSIDE RECORDS SUMMARY | 2024-09-06 17:33 | XMS_ITS | Encounter Summary ---
Author Organization [facility] Address [address] [place] [address] Care Team Providers Care Range Examiner Name Role Phone Epi French MD Primary Care Provider Encounter Details Date Type Department Care Team (Latest Contact Info) Description 12/29/1999 Outpatient Historical [facility] Jay Perales NO ADDRESS ON FILE Bronchitis, not specified as acute or chronic (Primary Dx) Social History Tobacco Use Types Packs/Day Years Used Date Smoking Tobacco: Never Assessed Comments Unknown Sex and Gender Information Value Date Recorded Sex Assigned at Not on file Legal Sex Female 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
--- OUTSIDE RECORDS SUMMARY | 2024-09-06 17:33 | XMS_ITS | Encounter Summary ---
Author Organization [facility] Address [address] [facility] Attn: [place] [address] Care Team Providers Care Risk Control Officer Name Role Phone Epi French MD Primary Care Provider [phone] Encounter Details Date Type Department Care Team (Late st Contact Info) Description 03/25/1999 Outpatient Historical Javy Newsome DO NO ADDRESS ON FILE Social History Tobacco Use Types Packs/Day Years Used Date Smoking Tobacco: Never Assessed Comments Unknown Sex and Gender Information Value Date Recorded Sex Assigned at Not on file Legal Sex Female 3:09 AM VENEER TRIMMER Gender Identity Not on file Sexual Orientation Not on file documented as of this encounter Plan of Treatment Not on file documented as of this encounter Visit Diagnoses Not on filedocumented in this encounter Care Teams Risk Control Officer Relationship Specialty Start Date End Date Epi French MD [address] [place] [address] PCP - General Family Practice 09/29/10 documented as of this encounter
--- OUTSIDE RECORDS SUMMARY | 2024-09-06 17:33 | XMS_ITS | Encounter Summary ---
Author Organization [facility] Address [address] [facility] Attn: [place] [address] Care Team Providers Care Police Magistrate Name Role Phone Epi French MD Primary Care Provider [phone] Encounter Details Date Type Department Care Team (Late st Contact Info) Description 06/15/1999 Outpatient Historical Cabrera Altamirano MD NO ADDRESS ON FILE Social History Tobacco Use Types Packs/Day Years Used Date Smoking Tobacco: Never Assessed Comments Unknown Sex and Gender Information Value Date Recorded Sex Assigned at Not on file Legal Sex Female 3:09 AM ROOF TILE LAYER Gender Identity Not on file Sexual Orientation Not on file documented as of this encounter Plan of Treatment Not on file documented as of this encounter Visit Diagnoses Not on filedocumented in this encounter Care Teams Police Magistrate Relationship Specialty Start Date End Date Epi French MD [address] [place] [phone] PCP - General Family Practice 09/29/10 documented as of this encounter
--- OUTSIDE RECORDS SUMMARY | 2024-09-06 17:33 | XMS_ITS | Encounter Summary ---
Author Organization [facility] Address [address] [place] [address] Care Team Providers Care Contour Grinder Name Role Phone Epi French MD Primary Care Provider [phone] Encounter Details Date Type Department Care Team (Latest Contact Info) Description 11/18/2002 Outpatient Historical [facility] Multidisciplinary Chronic Pain [address] [place] [phone] Regulo Cm MD [address] [place] [address] FIT/ADJUST NERV/SENS SYSTEM DEVICE (Primary Dx) Social History Tobacco Use Types Packs/Day Years Used Date Smoking Tobacco: Never Assessed Comments Unknown Sex and Gender Information Value Date Recorded Sex Assigned at Not on file Legal Sex Female 3:09 AM RN FORENSIC Gender Identity Not on file Sexual Orientation Not on file documented as of this encounter Plan of Treatment Not on file documented as of this encounter Visit Diagnoses Diagnosis Fitting and adjustment of other devices related to nervous system and special senses- Primary documented in this encounter Care Teams Contour Grinder Relationship Specialty Start Date End Date Epi French MD [address] [place] [address] PCP - General Family Practice 09/29/10 documented as of this encounter
--- OUTSIDE RECORDS SUMMARY | 2024-09-06 17:33 | XMS_ITS | Encounter Summary ---
Author Organization [facility] Address [address] [place] [address] Care Team Providers Care Residential Field Manager Name Role Phone Epi French MD Primary Care Provider [phone] Encounter Details Date Type Department Care Team (Latest Contact Info) Description 07/19/2002 Outpatient Historical [facility] Multidisciplinary Chronic Pain [address] [place] [phone] Cabrera Altamirano MD NO ADDRESS ON FILE FIT/ADJUST NERV/SENS SYSTEM DEVICE (Primary Dx) Social History Tobacco Use Types Packs/Day Years Used Date Smoking Tobacco: Never Assessed Comments Unknown Sex and Gender Information Value Date Recorded Sex Assigned at Not on file Legal Sex Female 3: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
--- OUTSIDE RECORDS SUMMARY | 2024-09-06 17:33 | XMS_ITS | Encounter Summary ---
Author Organization [facility] Address [address] [place] [address] Care Team Providers Care Cobbler Apprentice Name Role Phone Epi French MD Primary Care Provider [phone] Encounter Details Date Type Department Care Team (Late st Contact Info) Description 11/18/2005 Outpatient Historical [facility] Pain Management Procedures [address] [place] [address] Cabrera Altamirano MD NO ADDRESS ON FILE Adjust Nerv Syst Device (Primary Dx) Social History Tobacco Use Types Packs/Day Years Used Date Smoking Tobacco: Never Assessed Comments Unknown Sex and Gender Information Value Date Recorded Sex Assigned at Not on file Legal Sex Female 3:09 AM ORACLE E BUSINESS DEVELOPER Gender Identity Not on file Sexual Orientation Not on file documented as of this encounter Plan of Treatment Not on file documented as of this encounter Visit Diagnoses Diagnosis Fitting and adjustment of other devices related to nervous system and special senses- Primary documented in this encounter Care Teams Cobbler Apprentice Relationship Specialty Start Date End Date Epi French MD [address] [place] [phone] PCP - General Family Practice 09/29/10 documented as of this encounter
--- OUTSIDE RECORDS SUMMARY | 2024-09-06 17:33 | XMS_ITS | Encounter Summary ---
Author Organization [facility] Address [address] [place] [address] Care Team Providers Care Epic Beacon Specialists Name Role Phone Epi French MD Primary Care Provider [phone] Encounter Details Date Type Department Care Team (Latest Contact Info) Description 03/15/1999 Outpatient Historical [facility] Jay Perales NO ADDRESS ON FILE Influenza with other respiratory manifestations (Primary Dx) Social History Tobacco Use Types Packs/Day Years Used Date Smoking Tobacco: Never Assessed Comments Unknown Sex and Gender Information Value Date Recorded Sex Assigned at Not on file Legal Sex Female 3:09 AM INTERNATIONAL REPRESENTATIVE Gender Identity Not on file Sexual Orientation Not on file documented as of this encounter Plan of Treatment Not on file documented as of this encounter Visit Diagnoses Diagnosis Influenza with other respiratory manifestations- Primary documented in this encounter Care Teams Epic [facility] Relationship Specialty Start Date End Date Epi French MD [address] [place] [phone] PCP - General Family Practice 09/29/10 documented as of this encounter
--- OUTSIDE RECORDS SUMMARY | 2024-09-06 17:33 | XMS_ITS | Encounter Summary ---
Author Organization [facility] Address [address] [place] [address] Care Team Providers Care On Site Wastewater Systems Technician Name Role Phone Epi French MD Primary Care Provider [phone] Encounter Details Date Type Department Care Team (Latest Contact Info) Description 04/26/2002 Outpatient Historical [facility] Multidisciplinary Chronic Pain [address] [place] [phone] Cabrera Altamirano MD NO ADDRESS ON FILE FIT/ADJUST NERV/SENS SYSTEM DEVICE (Primary Dx) Social History Tobacco Use Types Packs/Day Years Used Date Smoking Tobacco: Never Assessed Comments Unknown Sex and Gender Information Value Date Recorded Sex Assigned at Not on file Legal Sex Female 3:09 AM COOKIE PADDER Gender Identity Not on file Sexual Orientation Not on file documented as of this encounter Plan of Treatment Not on file documented as of this encounter Visit Diagnoses Diagnosis Fitting and adjustment of other devices related to nervous system and special senses- Primary documented in this encounter Care Teams On Site Wastewater Systems Technician Relationship Specialty Start Date End Date Epi French MD [address] [place] [phone] PCP - General Family Practice 09/29/10 documented as of this encounter
--- OUTSIDE RECORDS SUMMARY | 2024-09-06 17:33 | XMS_ITS | Encounter Summary ---
Author Organization [facility] Address [address] [place] [address] Care Team Providers Care Managing Partner Name Role Phone Epi French MD Primary Care Provider [phone] Encounter Details Date Type Department Care Team (Latest Contact Info) Description 05/02/2000 Outpatient Historical [facility] Jay Perales NO ADDRESS ON FILE Esophageal reflux (Primary Dx); Diaphragmatic hernia Social History Tobacco Use Types Packs/Day Years Used Date Smoking Tobacco: Never Assessed Comments Unknown Sex and Gender Information Value Date Recorded Sex Assigned at Not on file Legal Sex Female 3:09 AM MEDIA SERVICES DIRECTOR Gender Identity Not on file Sexual Orientation Not on file documented as of this encounter Plan of Treatment Not on file documented as of this encounter Visit Diagnoses Diagnosis Esophageal reflux- Primary Diaphragmatic hernia Diaphragmatic hernia without mention of obstruction or gangrene documented in this encounter Care Teams Managing Partner Relationship Specialty Start Date End Date Epi French MD [address] [place] [phone] PCP - General Family Practice 09/29/10 documented as of this encounter
--- OUTSIDE RECORDS SUMMARY | 2024-09-06 17:33 | XMS_ITS | Encounter Summary ---
Author Organization [facility] Address [address] [place] [address] Care Team Providers Care Advanced Practice Professional Name Role Phone Epi French MD Primary Care Provider [phone] Encounter Details Date Type Department Care Team (Latest Contact Info) Description 04/09/2002 Outpatient Historical [facility] Multidisciplinary Chronic Pain [address] [place] [address] Cabrera Altamirano MD NO ADDRESS ON FILE REFLEX SYMPATH DYSTRPHY LOWER LIMB (Primary Dx) Social History Tobacco Use Types Packs/Day Years Used Date Smoking Tobacco: Never Assessed Comments Unknown Sex and Gender Information Value Date Recorded Sex Assigned at Not on file Legal Sex Female 3:09 AM PHOTOENGRAVING SUPERVISOR Gender Identity Not on file Sexual Orientation Not on file documented as of this encounter Plan of Treatment Not on file documented as of this encounter Visit Diagnoses Diagnosis 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
--- OUTSIDE RECORDS SUMMARY | 2024-09-06 17:33 | XMS_ITS | Encounter Summary ---
Author Organization [facility] Address [address] [facility] Attn: [place] [address] Care Team Providers Care Pe Teacher Name Role Phone Epi French MD Primary Care Provider [phone] Encounter Details Date Type Department Care Team (Late st Contact Info) Description 02/11/1999 Outpatient Historical Cabrera Altamirano MD NO ADDRESS ON FILE Social History Tobacco Use Types Packs/Day Years Used Date Smoking Tobacco: Never Assessed Comments Unknown Sex and Gender Information Value Date Recorded Sex Assigned at Not on file Legal Sex Female 3:[address]PARTMENT DISPATCHER Gender Identity Not on file Sexual Orientation Not on file documented as of this encounter Plan of Treatment Not on file documented as of this encounter Visit Diagnoses Not on filedocumented in this encounter Care Teams Pe Teacher Relationship Specialty Start Date End Date Epi French MD [address] [place] [phone] PCP - General Family Practice 09/29/10 documented as of this encounter
--- OUTSIDE RECORDS SUMMARY | 2024-09-06 17:33 | XMS_ITS | Encounter Summary ---
Author Organization [facility] Address [address] [place] [address] Care Team Providers Care Water Systems Engineer Name Role Phone Epi French MD Primary Care Provider [phone] Encounter Details Date Type Department Care Team (Latest Contact Info) Description 05/12/1999 Outpatient Historical [facility] Jay Perales NO ADDRESS ON FILE Acute sinusitis, unspecified (Primary Dx) Social History Tobacco Use Types Packs/Day Years Used Date Smoking Tobacco: Never Assessed Comments Unknown Sex and Gender Information Value Date Recorded Sex Assigned at Not on file Legal Sex Female 3:09 AM TREE KILLER Gender Identity Not on file Sexual Orientation Not on file documented as of this encounter Plan of Treatment Not on file documented as of this encounter Visit Diagnoses Diagnosis Acute sinusitis, unspecified- Primary documented in this encounter Care Teams Water Systems Engineer Relationship Specialty Start Date End Date Epi French MD [address] [place] [phone] PCP - General Family Practice 09/29/10 documented as of this encounter
--- OUTSIDE RECORDS SUMMARY | 2024-09-06 17:33 | XMS_ITS | Encounter Summary ---
Author Organization [facility] Address [address] [place] [address] Care Team Providers Care Personnel Security Specialist Name Role Phone Epi French MD Primary Care Provider [phone] Encounter Details Date Type Department Care Team (Latest Contact Info) Description 07/05/2002 Outpatient Historical [facility] Multidisciplinary Chronic Pain [address] [place] [address] Cabrera Altamirano MD NO ADDRESS ON FILE FIT/ADJUST NERV/SENS SYSTEM DEVICE (Primary Dx) Social History Tobacco Use Types Packs/Day Years Used Date Smoking Tobacco: Never Assessed Comments Unknown Sex and Gender Information Value Date Recorded Sex Assigned at Not on file Legal Sex Female 3:09 AM CLINICAL SAFETY SPECIALIST Gender Identity Not on file Sexual Orientation Not on file documented as of this encounter Plan of Treatment Not on file documented as of this encounter Visit Diagnoses Diagnosis Fitting and adjustment of other devices related to nervous system and special senses- Primary documented in this encounter Care Teams Personnel Security Specialist Relationship Specialty Start Date End Date Epi French MD [address] [place] [phone] PCP - General Family Practice 09/29/10 documented as of this encounter
--- OUTSIDE RECORDS SUMMARY | 2024-09-06 17:33 | XMS_ITS | Encounter Summary ---
Author Organization [facility] Address [address] [place] [address] Care Team Providers Care Personnel Adviser Name Role Phone Epi French MD Primary Care Provider [phone] Encounter Details Date Type Department Care Team (Latest Contact Info) Description 05/30/2002 Outpatient Historical [facility] Multidisciplinary Chronic Pain [address] [place] [phone] Solomon Puga MD NO ADDRESS ON FILE FIT/ADJUST NERV/SENS SYSTEM DEVICE (Primary Dx) Social History Tobacco Use Types Packs/Day Years Used Date Smoking Tobacco: Never Assessed Comments Unknown Sex and Gender Information Value Date Recorded Sex Assigned at Not on file Legal Sex Female 3:09 AM PRODUCTION SHIFT SUPERVISOR Gender Identity Not on file Sexual Orientation Not on file documented as of this encounter Plan of Treatment Not on file documented as of this encounter Visit Diagnoses Diagnosis Fitting and adjustment of other devices related to nervous system and special senses- Primary documented in this encounter Care Teams Personnel Adviser Relationship Specialty Start Date End Date Epi French MD [address] [place] [phone] PCP - General Family Practice 09/29/10 documented as of this encounter
--- OUTSIDE RECORDS SUMMARY | 2024-09-06 17:33 | XMS_ITS | Encounter Summary ---
Author Organization [facility] Address [address] [place] [address] Care Team Providers Care Manager Operating Name Role Phone Epi French MD Primary Care Provider [phone] Encounter Details Date Type Department Care Team (Latest Contact Info) Description 10/15/2002 Outpatient Historical [facility] Multidisciplinary Chronic Pain [address] [place] [phone] Cabrera Altamirano MD NO ADDRESS ON FILE FIT/ADJUST NERV/SENS SYSTEM DEVICE (Primary Dx) Social History Tobacco Use Types Packs/Day Years Used Date Smoking Tobacco: Never Assessed Comments Unknown Sex and Gender Information Value Date Recorded Sex Assigned at Not on file Legal Sex Female 3: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
--- OUTSIDE RECORDS SUMMARY | 2024-09-06 17:33 | XMS_ITS | Encounter Summary ---
Author Organization [facility] Address [address] [place] [address] Care Team Providers Care Information Manager Name Role Phone Epi French MD Primary Care Provider [phone] Encounter Details Date Type Department Care Team (Late st Contact Info) Description 05/13/2002 Outpatient [facility] [address] [place] [phone] Social History Tobacco Use Types Packs/Day Years Used Date Smoking Tobacco: Never Assessed Comments Unknown Sex and Gender Information Value Date Recorded Sex Assigned at Not on file Legal Sex Female 3:09 AM FLATWORK SUPERVISOR Gender Identity Not on file Sexual Orientation Not on file documented as of this encounter Plan of Treatment Not on file documented as of this encounter Visit Diagnoses Not on filedocumented in this encounter Care Teams Information Manager Relationship Specialty Start Date End Date Epi French MD [address] [place] [phone] PCP - General Family Practice 09/29/10 documented as of this encounter
--- OUTSIDE RECORDS SUMMARY | 2024-09-06 17:33 | XMS_ITS | Encounter Summary ---
Author Organization [facility] Address [address] [place] [address] Care Team Providers Care Manager Wound Name Role Phone Epi French MD Primary Care Provider Encounter Details Date Type Department Care Team (Latest Contact Info) Description 06/11/2007 Outpatient Historical [facility] Pain Management Procedures [address] 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
--- OUTSIDE RECORDS SUMMARY | 2024-09-06 17:33 | XMS_ITS | Encounter Summary ---
Author Organization [facility] Address [address] [place] [address] Care Team Providers Care Social Media Designer Name Role Phone Epi French MD Primary Care Provider [phone] Encounter Details Date Type Department Care Team (Late st Contact Info) Description 05/21/2001 Outpatient Historical [facility] [address] [place] [address] Social History Tobacco Use Types Packs/Day Years Used Date Smoking Tobacco: Never Assessed Comments Unknown Sex and Gender Information Value Date Recorded Sex Assigned at Not on file Legal Sex Female 3:09 AM STABILIZER OPERATOR Gender Identity Not on file Sexual Orientation Not on file documented as of this encounter Plan of Treatment Not on file documented as of this encounter Visit Diagnoses Not on filedocumented in this encounter Care Teams Social Media Designer Relationship Specialty Start Date End Date Epi French MD [address] [place] [phone] PCP - General Family Practice 09/29/10 documented as of this encounter
--- OUTSIDE RECORDS SUMMARY | 2024-09-06 17:33 | XMS_ITS | Encounter Summary ---
Author Organization [facility] Address [address] [place] [address] Care Team Providers Care Aviation Tactical Readiness Officer Name Role Phone Epi French MD Primary Care Provider [phone] Encounter Details Date Type Department Care Team (Latest Contact Info) Description 08/23/2002 Outpatient Historical [facility] Multidisciplinary Chronic Pain [address] [place] [address] Cabrera Altamirano MD NO ADDRESS ON FILE FIT/ADJUST NERV/SENS SYSTEM DEVICE (Primary Dx) Social History Tobacco Use Types Packs/Day Years Used Date Smoking Tobacco: Never Assessed Comments Unknown Sex and Gender Information Value Date Recorded Sex Assigned at Not on file Legal Sex Female 3:09 AM MANUFACTURING TECHNICIAN Gender Identity Not on file Sexual Orientation Not on file documented as of this encounter Plan of Treatment Not on file documented as of this encounter Visit Diagnoses Diagnosis Fitting and adjustment of other devices related to nervous system and special senses- Primary documented in this encounter Care Teams Aviation Tactical Readiness Officer Relationship Specialty Start Date End Date Epi French MD [address] [place] [address] PCP - General Family Practice 09/29/10 documented as of this encounter
--- OUTSIDE RECORDS SUMMARY | 2024-09-06 17:33 | XMS_ITS | Encounter Summary ---
Author Organization [facility] Address [address] [place] [address] Care Team Providers Care Engineering Professionals Name Role Phone Epi French MD Primary Care Provider [phone] Encounter Details Date Type Department Care Team (Latest Contact Info) Description 09/27/[address] [facility] Multidisciplinary Chronic Pain [address] [place] [phone] Cabrera Altamirano MD NO ADDRESS ON FILE FIT/ADJUST NERV/SENS SYSTEM DEVICE (Primary Dx) Social History Tobacco Use Types Packs/Day Years Used Date Smoking Tobacco: Never Assessed Comments Unknown Sex and Gender Information Value Date Recorded Sex Assigned at Not on file Legal Sex Female 3:09 AM FIELD ARTILLERY BASIC Gender Identity Not on file Sexual Orientation Not on file documented as of this encounter Plan of Treatment Not on file documented as of this encounter Visit Diagnoses Diagnosis Fitting and adjustment of other devices related to nervous system and special senses- Primary documented in this encounter Care Teams Engineering Professionals Relationship Specialty Start Date End Date Epi French MD [address] [place] [phone] PCP - General Family Practice 09/29/10 documented as of this encounter
--- OUTSIDE RECORDS SUMMARY | 2024-09-06 17:33 | XMS_ITS | Encounter Summary ---
Author Organization [facility] Address [address] [facility] Attn: [place] [address] Care Team Providers Care Finishing Tunnel Operator Name Role Phone Epi French MD Primary Care Provider [phone] Encounter Details Date Type Department Care Team (Late st Contact Info) Description 03/03/1999 Outpatient Historical Javy Newsome DO NO ADDRESS ON FILE Social History Tobacco Use Types Packs/Day Years Used Date Smoking Tobacco: Never Assessed Comments Unknown Sex and Gender Information Value Date Recorded Sex Assigned at Not on file Legal Sex Female 3:09 AM COSTUME SEAMSTRESS Gender Identity Not on file Sexual Orientation Not on file documented as of this encounter Plan of Treatment Not on file documented as of this encounter Visit Diagnoses Not on filedocumented in this encounter Care Teams Finishing Tunnel Operator Relationship Specialty Start Date End Date Epi French MD [address] [place] [phone] PCP - General Family Practice 09/29/10 documented as of this encounter
--- OUTSIDE RECORDS SUMMARY | 2024-09-06 17:33 | XMS_ITS | Encounter Summary ---
Author Organization [facility] Address [address] [facility] Attn: [place] [address] Care Team Providers Care Biopharmaceutical Rep Name Role Phone Epi French MD Primary Care Provider [phone] Encounter Details Date Type Department Care Team (Late st Contact Info) Description 05/06/1999 Outpatient Historical Cabrera Altamirano MD NO ADDRESS ON FILE Social History Tobacco Use Types Packs/Day Years Used Date Smoking Tobacco: Never Assessed Comments Unknown Sex and Gender Information Value Date Recorded Sex Assigned at Not on file Legal Sex Female 3:09 AM CURTAIN INSPECTOR Gender Identity Not on file Sexual Orientation Not on file documented as of this encounter Plan of Treatment Not on file documented as of this encounter Visit Diagnoses Not on filedocumented in this encounter Care Teams Biopharmaceutical Rep Relationship Specialty Start Date End Date Epi French MD [address] [place] [phone] PCP - General Family Practice 09/29/10 documented as of this encounter
--- OUTSIDE RECORDS SUMMARY | 2024-09-06 17:33 | XMS_ITS | Encounter Summary ---
Author Organization [facility] Address [address] [place] [address] Care Team Providers Care Medical Researcher Name Role Phone Epi French MD Primary Care Provider [phone] Encounter Details Date Type Department Care Team (Latest Contact Info) Description 04/03/2000 Outpatient Historical [facility] Jay Perales NO ADDRESS ON FILE Contact dermatitis and other eczema, due to unspecified cause (Primary Dx); Elevated blood pressure reading without diagnosis of hypertension; Other dyspnea and respiratory abnormality; Dysphagia Social History Tobacco Use Types Packs/Day Years Used Date Smoking Tobacco: Never Assessed Comments Unknown Sex and Gender Information Value Date Recorded Sex Assigned at Not on file Legal Sex Female 3:09 AM SWITCH CLEANER Gender Identity Not on file Sexual Orientation Not on file documented as of this encounter Plan of Treatment Not on file documented as of this encounter Visit Diagnoses Diagnosis Contact dermatitis and other eczema, due to unspecified cause- Primary Elevated blood pressure reading without diagnosis of hypertension Other dyspnea and respiratory abnormality Dysphagia documented in this encounter Care Teams Medical Researcher Relationship Specialty Start Date End Date Epi French MD [address] [place] [address] PCP - General Family Practice 09/29/10 documented as of this encounter
--- OUTSIDE RECORDS SUMMARY | 2024-09-06 17:33 | XMS_ITS | Encounter Summary ---
Author Organization [facility] Address [address] [place] [address] Care Team Providers Care Supervisor Paper Products Name Role Phone Epi French MD Primary Care Provider [phone] Encounter Details Date Type Department Care Team (Late st Contact Info) Description 04/09/2002 Outpatient Historical [facility] [address] [place] [address] Social History Tobacco Use Types Packs/Day Years Used Date Smoking Tobacco: Never Assessed Comments Unknown Sex and Gender Information Value Date Recorded Sex Assigned at Not on file Legal Sex Female 3:09 AM WEATHERCASTER Gender Identity Not on file Sexual Orientation Not on file documented as of this encounter Plan of Treatment Not on file documented as of this encounter Visit Diagnoses Not on filedocumented in this encounter Care Teams Supervisor Paper Products Relationship Specialty Start Date End Date Epi French MD [address] [place] [phone] PCP - General Family Practice 09/29/10 documented as of this encounter
--- OUTSIDE RECORDS SUMMARY | 2024-09-06 17:33 | XMS_ITS | Encounter Summary ---
Author Organization [facility] Address [address] [place] [address] Care Team Providers Care Powder Blender And Pourer Name Role Phone Epi French MD Primary Care Provider [phone] Encounter Details Date Type Department Care Team (Late st Contact Info) Description 07/19/2002 Outpatient Historical [facility] [address] [place] [address] Social History Tobacco Use Types Packs/Day Years Used Date Smoking Tobacco: Never Assessed Comments Unknown Sex and Gender Information Value Date Recorded Sex Assigned at Not on file Legal Sex Female 3:09 AM IC DESIGN ENGINEER Gender Identity Not on file Sexual Orientation Not on file documented as of this encounter Plan of Treatment Not on file documented as of this encounter Visit Diagnoses Not on filedocumented in this encounter Care Teams Powder Blender And Pourer Relationship Specialty Start Date End Date Epi French MD [address] [place] [phone] PCP - General Family Practice 09/29/10 documented as of this encounter
--- OUTSIDE RECORDS SUMMARY | 2024-09-06 17:33 | XMS_ITS | Encounter Summary ---
Author Organization [facility] Address [address] [place] [address] Care Team Providers Care Investment Underwriter Name Role Phone Epi French MD Primary Care Provider [phone] Encounter Details Date Type Department Care Team (Late st Contact Info) Description 08/05/2005 Outpatient Historical [facility] Pain Management Procedures [address] [place] [address] Cabrera Altamirano MD NO ADDRESS ON FILE Adjust Nerv Syst Device (Primary Dx) Social History Tobacco Use Types Packs/Day Years Used Date Smoking Tobacco: Never Assessed Comments Unknown Sex and Gender Information Value Date Recorded Sex Assigned at Not on file Legal Sex Female 3:09 AM MAILROOM ASSISTANT Gender Identity Not on file Sexual Orientation Not on file documented as of this encounter Plan of Treatment Not on file documented as of this encounter Visit Diagnoses Diagnosis Fitting and adjustment of other devices related to nervous system and special senses- Primary documented in this encounter Care Teams Investment Underwriter Relationship Specialty Start Date End Date Epi French MD [address] [place] [phone] PCP - General Family Practice 09/29/10 documented as of this encounter
--- OUTSIDE RECORDS SUMMARY | 2024-09-06 17:33 | XMS_ITS | Encounter Summary ---
Author Organization [facility] Address [address] [place] [address] Care Team Providers Care Distillery Laborer Name Role Phone Epi French MD Primary Care Provider [phone] Encounter Details Date Type Department Care Team (Latest Contact Info) Description 09/10/2002 Outpatient Historical [facility] Multidisciplinary Chronic Pain [address] [place] [address] Cabrera Altamirano MD NO ADDRESS ON FILE FIT/ADJUST NERV/SENS SYSTEM DEVICE (Primary Dx) Social History Tobacco Use Types Packs/Day Years Used Date Smoking Tobacco: Never Assessed Comments Unknown Sex and Gender Information Value Date Recorded Sex Assigned at Not on file Legal Sex Female 3:09 AM HOME PARAPROFESSIONAL Gender Identity Not on file Sexual Orientation Not on file documented as of this encounter Plan of Treatment Not on file documented as of this encounter Visit Diagnoses Diagnosis Fitting and adjustment of other devices related to nervous system and special senses- Primary documented in this encounter Care Teams Distillery Laborer Relationship Specialty Start Date End Date Epi French MD [address] [place] [phone] PCP - General Family Practice 09/29/10 documented as of this encounter
--- OUTSIDE RECORDS SUMMARY | 2024-09-06 17:33 | XMS_ITS | Encounter Summary ---
Author Organization [facility] Address [address] [place] [address] Care Team Providers Care Semiconductor Manufacturing Technician Name Role Phone Epi French MD Primary Care Provider [phone] Encounter Details Date Type Department Care Team (Latest Contact Info) Description 12/18/2001 Outpatient Historical [facility] Regulo Cm MD [address] [place] [address] VACCINE FOR INFLUENZA (Primary Dx) Social History Tobacco Use Types Packs/Day Years Used Date Smoking Tobacco: Never Assessed Comments Unknown Sex and Gender Information Value Date Recorded Sex Assigned at Not on file Legal Sex Female 3:09 AM GAS METER CHECKER Gender Identity Not on file Sexual Orientation Not on file documented as of this encounter Plan of Treatment Not on file documented as of this encounter Visit Diagnoses Diagnosis Need vaccination-viral disease- Primary Need for prophylactic vaccination and inoculation against other viral diseases documented in this encounter Care Teams Semiconductor Manufacturing Technician Relationship Specialty Start Date End Date Epi French MD [address] [place] [phone] PCP - General Family Practice 09/29/10 documented as of this encounter
--- OUTSIDE RECORDS SUMMARY | 2024-09-06 17:33 | XMS_ITS | Encounter Summary ---
Author Organization [facility] Address [address] [facility] Attn: [place] [address] Care Team Providers Care Estimator Paperboard Boxes Name Role Phone Epi French MD Primary Care Provider [phone] Encounter Details Date Type Department Care Team (Late st Contact Info) Description 12/12/2001 Outpatient Historical Cabrera Altamirano MD NO ADDRESS ON FILE Social History Tobacco Use Types Packs/Day Years Used Date Smoking Tobacco: Never Assessed Comments Unknown Sex and Gender Information Value Date Recorded Sex Assigned at Not on file Legal Sex Female 3:09 AM TECHNICAL REPORT WRITER Gender Identity Not on file Sexual Orientation Not on file documented as of this encounter Plan of Treatment Not on file documented as of this encounter Visit Diagnoses Not on filedocumented in this encounter Care Teams Estimator Paperboard Boxes Relationship Specialty Start Date End Date Epi French MD [address] [place] [phone] PCP - General Family Practice 09/29/10 documented as of this encounter
--- OUTSIDE RECORDS SUMMARY | 2024-09-06 17:33 | XMS_ITS | Encounter Summary ---
Author Organization [facility] Address [address] [place] [address] Care Team Providers Care Upper Cutter Out Name Role Phone Epi French MD Primary Care Provider [phone] Encounter Details Date Type Department Care Team (Latest Contact Info) Description 07/23/2007 Outpatient Historical [facility] Pain Management Procedures [address] 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
--- OUTSIDE RECORDS SUMMARY | 2024-09-06 17:33 | XMS_ITS | Encounter Summary ---
Author Organization [facility] Address [address] [facility] Attn: [place] [address] Care Team Providers Care Spring Repairer Helper Hand Name Role Phone Epi French MD Primary Care Provider [phone] Encounter Details Date Type Department Care Team (Late st Contact Info) Description 05/27/1999 Outpatient Historical Cabrera Altamirano MD NO ADDRESS ON FILE Social History Tobacco Use Types Packs/Day Years Used Date Smoking Tobacco: Never Assessed Comments Unknown Sex and Gender Information Value Date Recorded Sex Assigned at Not on file Legal Sex Female 3:09 AM CONTAINER PACKER OPERATOR Gender Identity Not on file Sexual Orientation Not on file documented as of this encounter Plan of Treatment Not on file documented as of this encounter Visit Diagnoses Not on filedocumented in this encounter Care Teams Spring Repairer Helper Hand Relationship Specialty Start Date End Date Epi French MD [address] [place] [phone] PCP - General Family Practice 09/29/10 documented as of this encounter
--- OUTSIDE RECORDS SUMMARY | 2024-09-06 17:33 | XMS_ITS | Encounter Summary ---
Author Organization [facility] Address [address] [place] [address] Care Team Providers Care National Guard Member Name Role Phone Epi French MD Primary Care Provider [phone] Encounter Details Date Type Department Care Team (Late st Contact Info) Description 04/26/2002 Outpatient Historical [facility] [address] [place] [address] Social History Tobacco Use Types Packs/Day Years Used Date Smoking Tobacco: Never Assessed Comments Unknown Sex and Gender Information Value Date Recorded Sex Assigned at Not on file Legal Sex Female 3:09 AM RETREAD OPERATOR Gender Identity Not on file Sexual Orientation Not on file documented as of this encounter Plan of Treatment Not on file documented as of this encounter Visit Diagnoses Not on filedocumented in this encounter Care Teams National [employer] Member Relationship Specialty Start Date End Date Epi French MD [address] [place] [phone] PCP - General Family Practice 09/29/10 documented as of this encounter
--- OUTSIDE RECORDS SUMMARY | 2024-09-06 17:33 | XMS_ITS | Encounter Summary ---
Author Organization [facility] Address [address] [place] [address] Care Team Providers Care Social Human Services Assistants Name Role Phone Epi French MD Primary Care Provider [phone] Encounter Details Date Type Department Care Team (Late st Contact Info) Description 06/17/2002 Outpatient [facility] [address] [place] [address] Social History Tobacco Use Types Packs/Day Years Used Date Smoking Tobacco: Never Assessed Comments Unknown Sex and Gender Information Value Date Recorded Sex Assigned at Not on file Legal Sex Female 3:09 AM REVIVAL CLERK Gender Identity Not on file Sexual Orientation Not on file documented as of this encounter Plan of Treatment Not on file documented as of this encounter Visit Diagnoses Not on filedocumented in this encounter Care Teams Social Human Services Assistants Relationship Specialty Start Date End Date Epi French MD [address] [place] [phone] PCP - General Family Practice 09/29/10 documented as of this encounter
--- OUTSIDE RECORDS SUMMARY | 2024-09-06 17:33 | XMS_ITS | Encounter Summary ---
Author Organization [facility] Address [address] [place] [address] Care Team Providers Care Heavy Equipment Plumbing Supervisor Name Role Phone Epi French MD Primary Care Provider [phone] Encounter Details Date Type Department Care Team (Latest Contact Info) Description 10/23/2001 Outpatient Historical [facility] Regulo Cm MD [address] [place] [address] DERMATOPHYTOSIS OF NAIL (Primary Dx); CELLULITIS OF DIGIT NOS Social History Tobacco Use Types Packs/Day Years Used Date Smoking Tobacco: Never Assessed Comments Unknown Sex and Gender Information Value Date Recorded Sex Assigned at Not on file Legal Sex Female 3:09 AM SPEECH LANGUAGE PATHOLOGIST TRAVEL Gender Identity Not on file Sexual Orientation Not on file documented as of this encounter Plan of Treatment Not on file documented as of this encounter Visit Diagnoses Diagnosis Dermatophytosis of nail- Primary Cellulitis and abscess of unspecified digit documented in this encounter Care Teams Heavy Equipment Plumbing Supervisor Relationship Specialty Start Date End Date Epi French MD [address] [place] [phone] PCP - General Family Practice 09/29/10 documented as of this encounter
--- OUTSIDE RECORDS SUMMARY | 2024-09-06 17:33 | XMS_ITS | Encounter Summary ---
Author Organization [facility] Address [address] [place] [address] Care Team Providers Care Teacher Lip Reading Name Role Phone Epi French MD Primary Care Provider [phone] Encounter Details Date Type Department Care Team (Latest Contact Info) Description 12/27/2002 Outpatient Historical [facility] Multidisciplinary Chronic Pain [address] [place] [address] Regulo Cm MD [address] [place] [address] FIT/ADJUST NERV/SENS SYSTEM DEVICE (Primary Dx) Social History Tobacco Use Types Packs/Day Years Used Date Smoking Tobacco: Never Assessed Comments Unknown Sex and Gender Information Value Date Recorded Sex Assigned at Not on file Legal Sex Female 3:09 AM GREENHOUSE STAFF Gender Identity Not on file Sexual Orientation Not on file documented as of this encounter Plan of Treatment Not on file documented as of this encounter Visit Diagnoses Diagnosis Fitting and adjustment of other devices related to nervous system and special senses- Primary documented in this encounter Care Teams Teacher Lip Reading Relationship Specialty Start Date End Date Epi French MD [address] [place] [address] PCP - General Family Practice 09/29/10 documented as of this encounter
--- OUTSIDE RECORDS SUMMARY | 2024-09-06 17:33 | XMS_ITS | Encounter Summary ---
Author Organization [facility] Address [address] [place] [address] Care Team Providers Care Bead Forming Machine Set Up Operator Name Role Phone Epi French MD Primary Care Provider [phone] Encounter Details Date Type Department Care Team (Latest Contact Info) Description 09/28/1998 Outpatient Historical [facility] Jay Perales NO ADDRESS ON FILE Cardiac dysrhythmia, unspecified (Primary Dx); Dysphagia; Esophageal reflux Social History Tobacco Use Types Packs/Day Years Used Date Smoking Tobacco: Never Assessed Comments Unknown Sex and Gender Information Value Date Recorded Sex Assigned at Not on file Legal Sex Female 3:09 AM NUCLEAR TECHNICIAN Gender Identity Not on file Sexual Orientation Not on file documented as of this encounter Plan of Treatment Not on file documented as of this encounter Visit Diagnoses Diagnosis Cardiac dysrhythmia, unspecified- Primary Dysphagia Esophageal reflux documented in this encounter Care Teams Bead Forming Machine Set Up Operator Relationship Specialty Start Date End Date Epi French MD [address] [place] [phone] PCP - General Family Practice 09/29/10 documented as of this encounter
--- OUTSIDE RECORDS SUMMARY | 2024-09-06 17:33 | XMS_ITS | Encounter Summary ---
Author Organization [facility] Address [address] [place] [address] Care Team Providers Care Rn Ambulatory Name Role Phone Epi French MD Primary Care Provider [phone] Encounter Details Date Type Department Care Team (Late st Contact Info) Description 09/08/2005 Outpatient Historical [facility] Management Procedures [address] [place] [address] Cabrera Altamirano MD NO ADDRESS ON FILE Adjust Nerv Syst Device (Primary Dx) Social History Tobacco Use Types Packs/Day Years Used Date Smoking Tobacco: Never Assessed Comments Unknown Sex and Gender Information Value Date Recorded Sex Assigned at Not on file Legal Sex Female 3:09 AM OVERNIGHT STOCKER Gender Identity Not on file Sexual Orientation Not on file documented as of this encounter Plan of Treatment Not on file documented as of this encounter Visit Diagnoses Diagnosis Fitting and adjustment of other devices related to nervous system and special senses- Primary documented in this encounter Care Teams Rn Ambulatory Relationship Specialty Start Date End Date Epi French MD [address] [place] [phone] PCP - General Family Practice 09/29/10 documented as of this encounter
--- OUTSIDE RECORDS SUMMARY | 2024-09-06 17:33 | XMS_ITS | Encounter Summary ---
Author Organization [facility] Address [address] [place] [address] Care Team Providers Care Boat Pilot Name Role Phone Epi French MD Primary Care Provider [phone] Encounter Details Date Type Department Care Team (Latest Contact Info) Description 12/11/1998 Outpatient Historical [facility] Jay Perales NO ADDRESS ON FILE Ingrowing nail (Primary Dx); Onychia of toe Social History Tobacco Use Types Packs/Day Years Used Date Smoking Tobacco: Never Assessed Comments Unknown Sex and Gender Information Value Date Recorded Sex Assigned at Not on file Legal Sex Female 3:09 AM ATHLETIC GEAR CUSTODIAN Gender Identity Not on file Sexual Orientation Not on file documented as of this encounter Plan of Treatment Not on file documented as of this encounter Visit Diagnoses Diagnosis Ingrowing nail- Primary Onychia of toe Onychia and paronychia of toe documented in this encounter Care Teams Boat Pilot Relationship Specialty Start Date End Date Epi French MD [address] [place] [address] PCP - General Family Practice 09/29/10 documented as of this encounter
--- OUTSIDE RECORDS SUMMARY | 2024-09-06 17:33 | XMS_ITS | Encounter Summary ---
Author Organization [facility] Address [address] [place] [address] Care Team Providers Care Clinical Writer Name Role Phone Epi French MD Primary Care Provider Encounter Details Date Type Department Care Team (Latest Contact Info) Description 11/13/1997 Outpatient Historical [facility] Endocrinology-[facility] [address] [place] [address] Christina Mendoza MD [address], [place] [id number] Kaitlyn's syndrome (Primary Dx) Social History Tobacco Use Types Packs/Day Years Used Date Smoking Tobacco: Never Assessed Comments Unknown Sex and Gender Information Value Date Recorded Sex Assigned at Not on file Legal Sex Female 3:09 AM HITCH TECHNICIAN Gender Identity Not on file Sexual Orientation Not on file documented as of this encounter Plan of Treatment Not on file documented as of this encounter Visit Diagnoses Diagnosis Kaitlyn's syndrome- Primary documented in this encounter Care Teams Clinical Writer Relationship Specialty Start Date End Date Epi French MD [address] [place] [phone] PCP - General Family Practice 09/29/10 documented as of this encounter
--- OUTSIDE RECORDS SUMMARY | 2024-09-06 17:33 | XMS_ITS | Clinical Summary ---
Author Organization [facility] Address [address] [facility] Attn: [place] [address] Care Team Providers Care Continuous Improvement Coach Name Role Phone Epi French MD Primary Care Provider Allergies Active Allergy Reactions Criticality Noted Date Comments Beet Nausea and Vomiting Low 10/01/2010 Sulfa (Sulfonamide Antibiotics) Hives,Swelling High 10/01/2010 Active Problems Problem Noted Date Diagnosed Date Postlaminectomy syndrome, lumbar region 09/22/19 11 Immunizations Immunization Administration Dates Next Due Influenza Seasonal Unspecified Formulation IM ,01/02/2001 Social History Tobacco Use Types Packs/Day Years Used Date Smoking Tobacco: Every Day Cigarettes Smokeless Tobacco: Never Alcohol Use Standard Drinks/Week Comments No 0 (1 standard drink = 0.6 oz pur e alcohol) Comments Unknown Sex and Gender Information Value Date Recorded Sex Assigned at Not on file Legal Sex Female 3:26 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 Gender Identity Not on file Sexual Orientation Not on file Plan of Treatment Health Maintenance Due Date Last Done Comments DTAP/TDAP/TD VACCINES (1 - Tdap) 12/21/1962 PNEUMOCOCCAL VACCINE 50+ YEA RS (1 of 1 - PCV) 12/21/1993 ZOSTER VACCINE (1 of 2) 12/21/1993 OSTEOPOROSIS SCREENING 12/21/2008 RSV VACCINE (60+ or ) (1 - 1-dose 75+ series) 12/21/2018 INFLUENZA VACCINE (#1) 2024 12/18/2001, 2000 Medical Devices Implanted Type Area Dishtank Operator Device Identifier Shelf Expiration Date Model / Serial / Lot Log [id number] - Pain Management Implant Tray - 1 - Pump Synchromed Ii 40ml 8637-40 Implanted:Qty: 1 on 10/05/2010 Catheter Right: Abdomen [employer]- NEUROLOGIC TECH 10/05/2017 8637-40 / [id number] / Intrathecal Catheter Revision Kit Implanted:Qty: 1 on 10/05/2010 Other Back [employer]- NEUROLOGIC TECH [id number] / / [id number] 1 Description:Intrathecal Cath eter Pump Segment Revision Kit #[id number] Medtronic Pump Patient Wood Drilling Machine Operator Implanted:Qty: 1 on 10/05/2010 Other [employer]- NEUROLOGIC TECH [id number] / / Description:Pain Pump Patien t Wood Drilling Machine Operator Explanted Type Area Dishtank Operator Device Identifier Shelf Expiration Date Model / Serial / Lot Pain Pump Explanted:Qty: 1 on 10/05/2010 Other Right: Abdomen [employer] [id number] / [id number] / Description:pain pump, impla nted 12/12/2001, end of life, discarded per protocol Care Teams Continuous Improvement Coach Relationship Specialty Start Date End Date Epi French MD [address] [place] [phone] PCP - General Family Practice 09/29/10
--- OUTSIDE RECORDS SUMMARY | 2024-09-06 17:33 | XMS_ITS | Encounter Summary ---
Author Organization [facility] Address [address] [place] [address] Care Team Providers Care Freelance Interpreter/Translator Name Role Phone Epi French MD Primary Care Provider [phone] Encounter Details Date Type Department Care Team (Late st Contact Info) Description 05/04/[address] [facility] [address] [place] [phone] Social History Tobacco Use Types Packs/Day Years Used Date Smoking Tobacco: Never Assessed Comments Unknown Sex and Gender Information Value Date Recorded Sex Assigned at Not on file Legal Sex Female 3:09 AM ACCOUNT DEVELOPMENT 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
--- OUTSIDE RECORDS SUMMARY | 2024-09-06 17:33 | XMS_ITS | Encounter Summary ---
Author Organization [facility] Address [address] [place] [address] Care Team Providers Care Plate Finisher Name Role Phone Epi French MD Primary Care Provider Encounter Details Date Type Department Care Team (Latest Contact Info) Description 08/05/2002 Outpatient Historical [facility] Multidisciplinary Chronic Pain [address] [place] [phone] Solomon Puga MD NO ADDRESS ON FILE FIT/ADJUST NERV/SENS SYSTEM DEVICE (Primary Dx) Social History Tobacco Use Types Packs/Day Years Used Date Smoking Tobacco: Never Assessed Comments Unknown Sex and Gender Information Value Date Recorded Sex Assigned at Not on file Legal Sex Female 3:09 AM 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
--- OUTSIDE RECORDS SUMMARY | 2024-09-06 17:33 | XMS_ITS | Encounter Summary ---
Author Organization [facility] Address [address] [place] [address] Care Team Providers Care Operator Lights Name Role Phone Epi French MD Primary Care Provider [phone] Encounter Details Date Type Department Care Team (Latest Contact Info) Description 06/17/2002 Outpatient Historical [facility] Multidisciplinary Chronic Pain [address] [place] [phone] Solomon Puga MD NO ADDRESS ON FILE FIT/ADJUST NERV/SENS SYSTEM DEVICE (Primary Dx) Social History Tobacco Use Types Packs/Day Years Used Date Smoking Tobacco: Never Assessed Comments Unknown Sex and Gender Information Value Date Recorded Sex Assigned at Not on file Legal Sex Female 3:09 AM 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
--- OUTSIDE RECORDS SUMMARY | 2024-09-06 17:33 | XMS_ITS | Encounter Summary ---
Author Organization Address [address] [facility] Attn: [place] [address] Care Team Providers Care Treasury Representative Name Role Phone Epi French MD Primary Care Provider [phone] Encounter Details Date Type Department Care Team (Late st Contact Info) Description 07/06/1999 Outpatient Historical Solomon Puga MD NO ADDRESS ON FILE Cabrera Altamirano MD NO ADDRESS ON FILE Social History Tobacco Use Types Packs/Day Years Used Date Smoking Tobacco: Never Assessed Comments Unknown Sex and Gender Information Value Date Recorded Sex Assigned at Not on file Legal Sex Female 3:09 AM SENIOR PROJECT 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
--- OUTSIDE RECORDS SUMMARY | 2024-09-06 17:33 | XMS_ITS | Encounter Summary ---
Author Organization [facility] Address [address] [place] [address] Care Team Providers Care Drapery Counselor Name Role Phone Epi French MD Primary Care Provider [phone] Encounter Details Date Type Department Care Team (Late st Contact Info) Description 06/30/2005 Outpatient Historical [facility] Pain Management- [place] [address] 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); Pain in Thoracic Spine Social History Tobacco Use Types Packs/Day Years Used Date Smoking Tobacco: Never Assessed Comments Unknown Sex and Gender Information Value Date Recorded Sex Assigned at Not on file Legal Sex Female 3:09 AM TABLE LEVER OPERATOR Gender Identity Not on file Sexual Orientation Not on file documented as of this encounter Plan of Treatment Not on file documented as of this encounter Visit Diagnoses Diagnosis 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
--- OUTSIDE RECORDS SUMMARY | 2024-09-06 17:33 | XMS_ITS | Encounter Summary ---
Author Organization [facility] Address [address] [facility] Attn: [place] [address] Care Team Providers Care Hydrometer Calibrator Name Role Phone Epi French MD Primary Care Provider [phone] Encounter Details Date Type Department Care Team (Late st Contact Info) Description 04/15/1999 Outpatient Historical Solomon Puga MD NO ADDRESS ON FILE Social History Tobacco Use Types Packs/Day Years Used Date Smoking Tobacco: Never Assessed Comments Unknown Sex and Gender Information Value Date Recorded Sex Assigned at Not on file Legal Sex Female 3:09 AM RUBY RAILS DEVELOPER Gender Identity Not on file Sexual Orientation Not on file documented as of this encounter Plan of Treatment Not on file documented as of this encounter Visit Diagnoses Not on filedocumented in this encounter Care Teams Hydrometer Calibrator Relationship Specialty Start Date End Date Epi French MD [address] [place] [address] PCP - General Family Practice 09/29/10 documented as of this encounter
--- OUTSIDE RECORDS SUMMARY | 2024-09-06 17:33 | XMS_ITS | Encounter Summary ---
Author Organization [facility] Address [address] [place] [address] Care Team Providers Care Mulcher Operator Name Role Phone Epi French MD Primary Care Provider [phone] Encounter Details Date Type Department Care Team (Late st Contact Info) Description 10/14/2005 Outpatient Historical [facility] Pain Management Procedures [address] 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
--- OUTSIDE RECORDS SUMMARY | 2024-09-06 17:34 | XMS_ITS | Encounter Summary ---
Author Organization [facility] Address [address] [place] [address] Care Team Providers Care Under Trimmer Name Role Phone Epi French MD Primary Care Provider [phone] Encounter Details Date Type Department Care Team (Late st Contact Info) Description 11/07/2000 [facility] [address] [place] [address] Social History Tobacco Use Types Packs/Day Years Used Date Smoking Tobacco: Never Assessed Comments Unknown Sex and Gender Information Value Date Recorded Sex Assigned at Not on file Legal Sex Female 3:09 AM QUALITY CONTROL ANALYST Gender Identity Not on file Sexual Orientation Not on file documented as of this encounter Plan of Treatment Not on file documented as of this encounter Visit Diagnoses Not on filedocumented in this encounter Care Teams Under Trimmer Relationship Specialty Start Date End Date Epi French MD [address] [place] [phone] PCP - General Family Practice 09/29/10 documented as of this encounter
--- OUTSIDE RECORDS SUMMARY | 2024-09-06 17:34 | XMS_ITS | Encounter Summary ---
Author Organization [facility] Address [address] [place] [address] Care Team Providers Care Broker Associate Name Role Phone Epi French MD Primary Care Provider [phone] Encounter Details Date Type Department Care Team (Latest Contact Info) Description 09/21/2001 Outpatient Historical [facility] Regulo Cm MD [address] [place] [address] ACUTE SINUSITIS NOS (Primary Dx) Social History Tobacco Use Types Packs/Day Years Used Date Smoking Tobacco: Never Assessed Comments Unknown Sex and Gender Information Value Date Recorded Sex Assigned at Not on file Legal Sex Female 3:09 AM INSURANCE 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
--- OUTSIDE RECORDS SUMMARY | 2024-09-06 17:34 | XMS_ITS | Encounter Summary ---
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
--- OUTSIDE RECORDS SUMMARY | 2024-09-06 17:34 | XMS_ITS | Encounter Summary ---
Author Organization [facility] Address [address] [place] [address] Care Team Providers Care Promotion Producer Name Role Phone Epi French MD Primary Care Provider [phone] Encounter Details Date Type Department Care Team (Latest Contact Info) Description 01/02/2001 Outpatient Historical [facility] Keaton Foster MD [address] [place], [place] [address] VACCINE FOR INFLUENZA (Primary Dx) Social History Tobacco Use Types Packs/Day Years Used Date Smoking Tobacco: Never Assessed Comments Unknown Sex and Gender Information Value Date Recorded Sex Assigned at Not on file Legal Sex Female 3:09 AM WAX BLEACHER Gender Identity Not on file Sexual Orientation Not on file documented as of this encounter Plan of Treatment Not on file documented as of this encounter Visit Diagnoses Diagnosis Need vaccination-viral disease- Primary Need for prophylactic vaccination and inoculation against other viral diseases documented in this encounter Care Teams Promotion Producer Relationship Specialty Start Date End Date Epi French MD [address] [place] [phone] PCP - General Family Practice 09/29/10 documented as of this encounter
--- OUTSIDE RECORDS SUMMARY | 2024-09-06 17:34 | XMS_ITS | Encounter Summary ---
Author Organization [facility] Address [address] [place] [address] Care Team Providers Care Excel Analyst Name Role Phone Epi French MD Primary Care Provider [phone] Encounter Details Date Type Department Care Team (Late st Contact Info) Description 06/02/2005 Outpatient Historical [facility] Pain Management Procedures [address] 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
--- OUTSIDE RECORDS SUMMARY | 2024-09-06 17:34 | XMS_ITS | Encounter Summary ---
Author Organization [facility] Address [address] [place] [address] Care Team Providers Care It Senior Software Engineer Java Name Role Phone Epi French MD Primary Care Provider [phone] Encounter Details Date Type Department Care Team (Late st Contact Info) Description 11/20/2003 Outpatient Historical [facility] Pain Management Procedures [address] 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
--- OUTSIDE RECORDS SUMMARY | 2024-09-06 17:34 | XMS_ITS | Encounter Summary ---
Author Organization [facility] Address [address] [place] [address] Care Team Providers Care Filter Tank Tender Name Role Phone Epi French MD Primary Care Provider Encounter Details Date Type Department Care Team (Late st Contact Info) Description 03/21/2007 Outpatient Historical [facility] Pain Management Procedures [address] [place] [address] Cabrera Altamirano MD NO ADDRESS ON FILE Social History Tobacco Use Types Packs/Day Years Used Date Smoking Tobacco: Never Assessed Comments Unknown Sex and Gender Information Value Date Recorded Sex Assigned at Not on file Legal Sex Female 3:09 AM CHEMICAL MIXER Gender Identity Not on file Sexual Orientation Not on file documented as of this encounter Plan of Treatment Not on file documented as of this encounter Visit Diagnoses Not on filedocumented in this encounter Care Teams Filter Tank Tender Relationship Specialty Start Date End Date Epi French MD [address] [place] [address] PCP - General Family Practice 09/29/10 documented as of this encounter
--- OUTSIDE RECORDS SUMMARY | 2024-09-06 17:34 | XMS_ITS | Encounter Summary ---
Author Organization [facility] Address [address] [place] [address] Care Team Providers Care Striper Name Role Phone Epi French MD Primary Care Provider [phone] Encounter Details Date Type Department Care Team (Latest Contact Info) Description 02/13/2002 Outpatient Historical [facility] Multidisciplinary Chronic Pain [address] [place] [phone] Solomon Puga MD NO ADDRESS ON FILE FIT/ADJUST NERV/SENS SYSTEM DEVICE (Primary Dx) Social History Tobacco Use Types Packs/Day Years Used Date Smoking Tobacco: Never Assessed Comments Unknown Sex and Gender Information Value Date Recorded Sex Assigned at Not on file Legal Sex Female 3:09 AM HEAD START TEACHER Gender Identity Not on file Sexual Orientation Not on file documented as of this encounter Plan of Treatment Not on file documented as of this encounter Visit Diagnoses Diagnosis Fitting and adjustment of other devices related to nervous system and special senses- Primary documented in this encounter Care Teams Striper Relationship Specialty Start Date End Date Epi French MD [address] [place] [address] PCP - General Family Practice 09/29/10 documented as of this encounter
--- OUTSIDE RECORDS SUMMARY | 2024-09-06 17:34 | XMS_ITS | Encounter Summary ---
Author Organization [facility] Address [address] [place] [address] Care Team Providers Care Medicinal Plant Picker Name Role Phone Epi French MD Primary Care Provider [phone] Encounter Details Date Type Department Care Team (Late st Contact Info) Description 03/25/2002 Outpatient [facility] [address] [place] [phone] Social History Tobacco Use Types Packs/Day Years [...] on filedocumented in this encounter Care Teams Medicinal Plant Picker Relationship Specialty Start Date End Date Epi French MD [address] [place] [phone] PCP - General Family Practice 09/29/10 documented as of this encounter
--- OUTSIDE RECORDS SUMMARY | 2024-09-06 17:34 | XMS_ITS | Patient Health Record ---
Author Organization [facility] Address [address] [place] [address] Care Team Providers Care Chair Mechanic Name Role Phone Steven Barrera Primary Care Provider [phone] Allergies Allergen (clinical drug ingredient) Drug/Non Drug Allergy documented on EMR Reaction Allergy Type Onset Date Status Substance with sulfonamide structure and antibacterial mechanism of action (substance) Sulfa Antibiotics hives, facial swelling Drug Allergy Active Reason For Referral No Information Medications Medication SIG (Take, Route, Frequency, Duration) Notes Start Date End Date Status Atorvastatin Calcium 40 mg TAKE 1 TABLET BY MOUTH EVERY DAY for 30 Active Vitamin D (Ergocalciferol) 1.25 MG (48428 UT) TAKE 1 CAPSULE BY MOUTH EVERY WEEK for 28 Active Ventolin HFA 108 (90 Base) MCG/ACT INHALE 1 TO 2 PUFFS BY MOUTH EVERY 4 HOURS NEEDED for 16 Active Famotidine 20 MG 1 tablet Orally Twic e a day for 14 days 12/29/2020 Not-Taking Aspirin 81 81 MG as directed Orally Active Cetirizine HCl 10 MG 1 tablet Orally Onc e a day for 30 day(s) 12/29/2020 Not-Taking Vitamin B12 1000 MCG 1 tablet Orally Onc e a day for 30 day(s) 10/07/2019 Active Nitrostat 0.4 MG as directed Sublingual Not-Taking Valsartan 320 mg TAKE 1 TABLET BY MOUTH EVERY DAY for 30 Active Morphine Sulfate 10 MG/0.7ML as directed Intramuscular Dr. Arzola Active Symbicort 160-4.5 MCG/ACT 2 puffs Inhalation Once a day for 30 days J44.9 06/25/2020 Not-Taking amLODIPine Besylate 5 mg TAKE 1 TABLET BY MOUTH AT BEDTIME FOR BLOOD PRESSURE for 30 Active Zinc 50 MG 1 tablet Orally Once a day Active Flexeril 5 MG 1 tablet Orally BID PRN for 30 Not-Taking Ginseng Kyrgyz Activ e CoQ10 100 MG as directed Orally Active Voltaren 1 % as directed Externally daily PRN for 30 Active Immunizations Vaccine Route Administration Date Status Comme nts Flu vaccine no Preserv 3 and > IM Intramuscular 12/14/2011 Administered Flu vaccine no Preserv 3 and > Unknown 12/20/2012 Administered Tdap Unknown 09/04/2012 Administered Zoster (Herpes Zoster/Shingles) Unknown 09/04/2012 Administered Social History Tobacco Use: Social History Observation Description Date Details (start date - stop date) Current Smoker NA - NA Household Question Answer Notes Marital status: Number of adults in household: 1 Level of education: finished college xTobacco Use/Smoking Question Answer Notes Are you a current smoker How often do you smoke cigarettes? every day How many cigarettes a day do you smoke? 11-20 How soon after you wake up d o you smoke your first cigarette? within 5 minutes Are you interested in quitting? Thinking about q uitting Alcohol Screen (Audit-C) Question Answer Notes Did you have a drink containing alcohol in the p ast year? No Points 0 Interpretation Negative PHQ-9 Question Answer Notes Little interest or pleasure in doing things Not at all Feeling down, depressed, or hopeless Not at all Trouble falling or staying asleep, or sleeping t oo much Not at all Feeling tired or having little energy Not at all Poor appetite or overeating Not at all Feeling bad about yourself, or that you are a failure, or have let yourself or your family down Not at all Trouble concentrating on thi ngs, such as reading the newspaper or watching television Not at all Moving or speaking so slowly that other people could have noticed. Or the opposite ? being so fidgety or restless that you have been moving around a lot more than usual Not at all Thoughts that you would be b aranza off , or of hurting yourself in some way Not at all Total Score 0 Problems Problem Type SNOMED Code ICD Code Onset Dates Problem Status W/U Status Risk Notes Problem 05233237 Other chronic pa in (G89.29) Active confirmed Problem Thoracic aortic aneurysm without rupture (99371817) Thoracic aortic aneurysm, without rupture (I71.2) Active confirmed Problem Chronic obstructive pulmonary disease (16192285) Chronic obstructive pulmonary disease, unspecified (J44.9) Active confirmed Problem 311622325 Irritable bowel syndrome with diarrhea (K58.0) Active confirmed Problem Essential hypertension (69348181) Essential hypertension (I10) Active confirmed Problem 37708039 Diarrhea, unspecified type (R19.7) Active confirmed Problem Acute exacerbation o f COPD (083430132) COPD exacerbation (J44.1) Active confirmed Problem Vitamin D deficiency (58705762) Vitamin D deficiency (E55.9) Active confirmed Problem 13115687629972779 Cigarette adolfo pancho dependence with other nicotine-induced disorder (F17.218) Active confirmed Problem Left ventricular hypertrophy (86373979) Left ventricular hypertrophy (I51.7) Active confirmed Problem 634200293 Lower extremity edema (R60.0) Active confirmed Problem Osteoporosis (74818131) Osteoporosis (M81.0) Active confirmed Problem 95101785 Hypercholesterol emia (E78.00) Active confirmed Problem 170723005 Basal cell carci noma (BCC) of skin of other part of face (C44.319) Active confirmed Problem Osteoarthritis (121340482) Osteoarthritis (M19.90) Active confirmed Problem 934184687 Peripheral vascu lar disease (I73.9) Active confirmed Problem 17854395 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) Active confirmed Problem Adjustment disorder with depressed mood (68429861) Bereavement adjustment reaction (309.0) 2015 Active confirmed [id number]- Problem COPD - Chronic obstructive pulmonary disease (12902575) COPD (496) 2015 Active confirmed [id number]- Problem Essential hypertension (69321167) Essential hypertension (401.1) 2015 Active confirmed [id number]- Problem Carpal tunnel syndrome (84833584) Carpal tunnel syndrome (354.0) 2018 Problem resolved confirmed [id number]- Problem Cough (96714482) Cough (786.2) 2013 Problem resolved confirmed [id number]- Problem Vitamin D deficiency (96391725) Vitamin D deficiency (268.9) 2011 Problem resolved confirmed [id number]- Problem Hypercholesterolemia (39028125) Hypercholesterolemia (272.0) 2012 Problem resolved confirmed [id number]- Problem Osteoporosis (76815829) Osteoporosis, other (733.09) 2018 Problem resolved confirmed [id number]- Problem Screening for breast cancer (762035277) Screening for breast cancer (V76.10) 2011 Problem resolved confirmed [id number]- Problem Tobacco dependence (62154432) Tobacco dependence (305.1) 2018 Problem resolved confirmed [id number]- Problem Acute exacerbation o f chronic obstructive airways disease (791308592) Acute exacerbation of chronic obstructive pulmonary disease (COPD) (491.21) 2013 Problem resolved confirmed [id number]- Problem Hematochezia (589237802) Hematochezia (578.1) 2018 Problem resolved confirmed [id number]- Problem Familial hypercholesterolemia (433876172) Familial hypercholesterolemia (272.0) 2011 Problem resolved confirmed [id number]- Problem Hypertension (34675835) Hypertension (401.1) 2011 Problem resolved confirmed [id number]- Problem Insect bites - nonvenomous (283409405) Insect bites (919.5) 2018 Problem resolved confirmed [id number]- Problem Abdominal pain (08746003) Abdominal pain (789.09) 2012 Problem resolved confirmed [id number]- Problem Postmenopausal osteoporosis (713001976) Postmenopausal osteoporosis (733.01) 2012 Problem resolved confirmed [id number]- Problem General examination of patient (405794571) Routine physical exam (V70.0) 2016 Problem resolved confirmed [id number]- Problem Anxiety state (914045426) Situational stress with anxiety (300.09) 2015 Problem resolved confirmed [id number]- Problem Thoracic aortic aneurysm without rupture (46027224) Thoracic aortic aneurysm, without rupture (441.2) 2017 Problem resolved confirmed [id number]- Problem Tremor (72630386) Tremor (781.0) 2015 Problem resolved confirmed [id number]- Problem Needs influenza immunization (870044369) Vaccination against other viral diseases, Influenza (V04.81) 2012 Problem resolved confirmed [id number]- Problem Coronary arteriosclerosis in [place] artery (3900504338088) Atherosclerotic heart disease (414.01) 2017 Problem resolved confirmed [id number]- Problem Acute otitis media (5958838) Acute otitis media (382.00) 2015 Problem resolved confirmed [id number]- Problem Neoplasm of uncertai n behavior of skin (61574680) Atypical skin lesion (238.2) 2012 Problem resolved confirmed [id number]- Problem Essential tremor (809740918) Benign essential tremor (333.1) 2011 Problem resolved confirmed [id number]- Problem Constipation (21293449) Constipation (564.01) 2012 Problem resolved confirmed [id number]- Problem Knee pain (5629750365) Knee pain (719.46) 2018 Problem resolved confirmed [id number]- Problem Reflex sympathetic dystrophy (194486608) 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) 2012 Problem resolved confirmed [id number]- Problem Impacted cerumen (06083319) External cerumen impaction (380.4) 2017 Problem resolved confirmed [id number]- Problem Left ventricular hypertrophy (45483921) Left ventricular hypertrophy (429.3) 2016 Problem resolved confirmed [id number]- Problem Screening for malignant neoplasm of breast (989868692) Screening for breast cancer, unspecified (V76.10) 2015 Problem resolved confirmed [id number]- Plan Of Treatment No Information Insurance Providers Payer Name Payer Address Payer Phone Subscriber Number Group Number Insured Name Patient Relationship to Insured Coverage Start Date Coverage End Date [place] [address] [address] [place] [address] [id number] [id number] Ayah Sanchez Self - patient is the insured 2 [place] [address] [place] [address] [id number] Ayah Sanchez Self - patient is the insured Medications Administered Medication Instructions Date of Administration Dosage Notes dexAMETHasone 05/06/2021 2 mL Medical (General) History Medical History History ICD Code Atherosclerotic heart disease Bereavement adjustment reaction Essential hypertension I10 Chronic obstructive pulmonary disease, u nspecified J44.9 Vitamin D deficiency E55.9 Left ventricular hypertrophy I51.7 Thoracic aortic aneurysm, without ruptur e I71.2 Osteoporosis M81.0 Forteo shots in the past Gastroesophageal reflux disease without esophagitis K21.9 Chronic pain, sees Dr. 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
--- OUTSIDE RECORDS SUMMARY | 2024-09-06 17:34 | XMS_ITS | Encounter Summary ---
Author Organization [facility] Address [address] [place] [address] Care Team Providers Care Inspector Purchased Parts Name Role Phone Epi French MD Primary Care Provider [phone] Encounter Details Date Type Department Care Team (Late st Contact Info) Description 08/23/2006 Outpatient Historical [facility] Pain Management Procedures [address] [place] [address] Cabrera Altamirano MD NO ADDRESS ON FILE Adjust Nerv Syst Device (Primary Dx) Social History Tobacco Use Types Packs/Day Years Used Date Smoking Tobacco: Never Assessed Comments Unknown Sex and Gender Information Value Date Recorded Sex Assigned at Not on file Legal Sex Female 3:09 AM BASTING PULLER Gender Identity Not on file Sexual Orientation Not on file documented as of this encounter Plan of Treatment Not on file documented as of this encounter Visit Diagnoses Diagnosis Fitting and adjustment of other devices related to nervous system and special senses- Primary documented in this encounter Care Teams Inspector Purchased Parts Relationship Specialty Start Date End Date Epi French MD [address] [place] [phone] PCP - General Family Practice 09/29/10 documented as of this encounter
--- OUTSIDE RECORDS SUMMARY | 2024-09-06 17:34 | XMS_ITS | Encounter Summary ---
Author Organization [facility] Address [address] [place] [address] Care Team Providers Care Speech Lang Path Name Role Phone Epi French MD Primary Care Provider [phone] Encounter Details Date Type Department Care Team (Latest Contact Info) Description 03/01/2002 Outpatient Historical [facility] Multidisciplinary Chronic Pain [address] [place] [address] Solomon Puga MD NO ADDRESS ON FILE FIT/ADJUST NERV/SENS SYSTEM DEVICE (Primary Dx) Social History Tobacco Use Types Packs/Day Years Used Date Smoking Tobacco: Never Assessed Comments Unknown Sex and Gender Information Value Date Recorded Sex Assigned at Not on file Legal Sex Female 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
--- OUTSIDE RECORDS SUMMARY | 2024-09-06 17:34 | XMS_ITS | Encounter Summary ---
Author Organization [facility] Address [address] [place] [address] Care Team Providers Care Folder Machine Operator Name Role Phone Epi French MD Primary Care Provider [phone] Encounter Details Date Type Department Care Team (Late st Contact Info) Description 05/31/2006 Outpatient Historical [facility] Pain Management Procedures [address] 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
--- OUTSIDE RECORDS SUMMARY | 2024-09-06 17:34 | XMS_ITS | Encounter Summary ---
Author Organization [facility] Address [address] [place] [address] Care Team Providers Care Practice Clinician Name Role Phone Epi French MD Primary Care Provider [phone] Encounter Details Date Type Department Care Team (Late st Contact Info) Description 12/12/2000 Outpatient Historical [facility] [address] [place] [address] Social History Tobacco Use Types Packs/Day Years Used Date Smoking Tobacco: Never Assessed Comments Unknown Sex and Gender Information Value Date Recorded Sex Assigned at Not on file Legal Sex Female 3:09 AM LINOTYPE OPERATOR Gender Identity Not on file Sexual Orientation Not on file documented as of this encounter Plan of Treatment Not on file documented as of this encounter Visit Diagnoses Not on filedocumented in this encounter Care Teams Practice Clinician Relationship Specialty Start Date End Date Epi French MD [address] [place] [phone] PCP - General Family Practice 09/29/10 documented as of this encounter
--- OUTSIDE RECORDS SUMMARY | 2024-09-06 17:34 | XMS_ITS | Encounter Summary ---
Author Organization [facility] Address [address] [place] [address] Care Team Providers Care Group Home Manager Name Role Phone Epi French MD Primary Care Provider [phone] Encounter Details Date Type Department Care Team (Late st Contact Info) Description 12/28/2006 Outpatient Historical [facility] Pain Management Procedures [address] 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
--- OUTSIDE RECORDS SUMMARY | 2024-09-06 17:34 | XMS_ITS | Encounter Summary ---
Author Organization [facility] Address [address] [place] [address] Care Team Providers Care Ophthalmic Tech Name Role Phone Epi French MD Primary Care Provider [phone] Encounter Details Date Type Department Care Team (Late st Contact Info) Description 11/29/2004 Outpatient Historical [facility] Pain Management Procedures [address] [place] [address] Cabrera Altamirano MD NO ADDRESS ON FILE FIT/ADJUST NERV/SENS SYSTEM DEVICE (Primary Dx) Social History Tobacco Use Types Packs/Day Years Used Date Smoking Tobacco: Never Assessed Comments Unknown Sex and Gender Information Value Date Recorded Sex Assigned at Not on file Legal Sex Female 3:09 AM CASE CONSULTANT Gender Identity Not on file Sexual Orientation Not on file documented as of this encounter Plan of Treatment Not on file documented as of this encounter Visit Diagnoses Diagnosis Fitting and adjustment of other devices related to nervous system and special senses- Primary documented in this encounter Care Teams Ophthalmic Tech Relationship Specialty Start Date End Date Epi French MD [address] [place] [phone] PCP - General Family Practice 09/29/10 documented as of this encounter
--- OUTSIDE RECORDS SUMMARY | 2024-09-06 17:34 | XMS_ITS | Encounter Summary ---
Author Organization [facility] Address [address] [place] [address] Care Team Providers Care Bituminous Paving Machine Operator Name Role Phone Epi French MD Primary Care Provider [phone] Encounter Details Date Type Department Care Team (Latest Contact Info) Description 04/25/2007 Outpatient Historical [facility] Pain Management Procedures [address] 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
--- OUTSIDE RECORDS SUMMARY | 2024-09-06 17:34 | XMS_ITS | Encounter Summary ---
Author Organization [facility] Address [address] [place] [address] Care Team Providers Care Peanut Blancher Name Role Phone Epi French MD Primary Care Provider [phone] Encounter Details Date Type Department Care Team (Late st Contact Info) Description 08/31/2007 Outpatient Historical [facility] Pain Management Procedures [address] [place] [address] Cabrera Altamirano MD NO ADDRESS ON FILE Social History Tobacco Use Types Packs/Day Years Used Date Smoking Tobacco: Never Assessed Comments Unknown Sex and Gender Information Value Date Recorded Sex Assigned at Not on file Legal Sex Female 3:09 AM ERGONOMICS TECHNICIAN Gender Identity Not on file Sexual Orientation Not on file documented as of this encounter Plan of Treatment Not on file documented as of this encounter Visit Diagnoses Not on filedocumented in this encounter Care Teams Peanut Blancher Relationship Specialty Start Date End Date Epi French MD [address] [place] [address] PCP - General Family Practice 09/29/10 documented as of this encounter
--- OUTSIDE RECORDS SUMMARY | 2024-09-06 17:34 | XMS_ITS | Encounter Summary ---
Author Organization [facility] Address [address] [place] [address] Care Team Providers Care Blankbook Forwarder Name Role Phone Epi French MD Primary Care Provider [phone] Encounter Details Date Type Department Care Team (Late st Contact Info) Description 02/13/2002 Outpatient Historical [facility] [address] [place] [address] Social History Tobacco Use Types Packs/Day Years Used Date Smoking Tobacco: Never Assessed Comments Unknown Sex and Gender Information Value Date Recorded Sex Assigned at Not on file Legal Sex Female 3:09 AM MINE 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
--- OUTSIDE RECORDS SUMMARY | 2024-09-06 17:34 | XMS_ITS | Encounter Summary ---
Author Organization [facility] Address [address] [place] [address] Care Team Providers Care Chiropractic Care Name Role Phone Epi French MD Primary Care Provider [phone] Encounter Details Date Type Department Care Team (Latest Contact Info) Description 05/19/2003 Outpatient Historical [facility] Pain Management Procedures [address] [place] [address] Solomon Puga MD NO ADDRESS ON FILE FIT/ADJUST NERV/SENS SYSTEM DEVICE (Primary Dx) Social History Tobacco Use Types Packs/Day Years Used Date Smoking Tobacco: Never Assessed Comments Unknown Sex and Gender Information Value Date Recorded Sex Assigned at Not on file Legal Sex Female 3:09 AM MOTION STUDY ENGINEER Gender Identity Not on file Sexual Orientation Not on file documented as of this encounter Plan of Treatment Not on file documented as of this encounter Visit Diagnoses Diagnosis Fitting and adjustment of other devices related to nervous system and special senses- Primary documented in this encounter Care Teams Chiropractic Care Relationship Specialty Start Date End Date Epi French MD [address] [place] [phone] PCP - General Family Practice 09/29/10 documented as of this encounter
--- OUTSIDE RECORDS SUMMARY | 2024-09-06 17:34 | XMS_ITS | Encounter Summary ---
Author Organization [facility] Address [address] [place] [address] Care Team Providers Care Digital Campaign Manager Name Role Phone Epi French MD Primary Care Provider [phone] Encounter Details Date Type Department Care Team (Latest Contact Info) Description 10/13/2003 Outpatient Historical [facility] Pain Management Procedures [address] [place] [address] Danny Knowles MD NO ADDRESS ON FILE FIT/ADJUST NERV/SENS SYSTEM DEVICE (Primary Dx) Social History Tobacco Use Types Packs/Day Years Used Date Smoking Tobacco: Never Assessed Comments Unknown Sex and Gender Information Value Date Recorded Sex Assigned at Not on file Legal Sex Female 3:09 AM GREENKEEPER Gender Identity Not on file Sexual Orientation Not on file documented as of this encounter Plan of Treatment Not on file documented as of this encounter Visit Diagnoses Diagnosis Fitting and adjustment of other devices related to nervous system and special senses- Primary documented in this encounter Care Teams Digital Campaign Manager Relationship Specialty Start Date End Date Epi French MD [address] [place] [phone] PCP - General Family Practice 09/29/10 documented as of this encounter
--- OUTSIDE RECORDS SUMMARY | 2024-09-06 17:34 | XMS_ITS | Encounter Summary ---
Author Organization [facility] Address [address] [place] [address] Care Team Providers Care Mold Checker Name Role Phone Epi French MD Primary Care Provider [phone] Encounter Details Date Type Department Care Team (Latest Contact Info) Description 03/15/2001 Outpatient Historical [facility] Regulo Cm MD [address] [place] [address] SICCA SYNDROME (Primary Dx); DYSHIDROSIS Social History Tobacco Use Types Packs/Day Years Used Date Smoking Tobacco: Never Assessed Comments Unknown Sex and Gender Information Value Date Recorded Sex Assigned at Not on file Legal Sex Female 3:09 AM DRAGGER OUT Gender Identity Not on file Sexual Orientation Not on file documented as of this encounter Plan of Treatment Not on file documented as of this encounter Visit Diagnoses Diagnosis Sicca syndrome- Primary Dyshidrosis documented in this encounter Care Teams Mold Checker Relationship Specialty Start Date End Date Epi French MD [address] [place] [address] PCP - General Family Practice 09/29/10 documented as of this encounter
--- OUTSIDE RECORDS SUMMARY | 2024-09-06 17:34 | XMS_ITS | Encounter Summary ---
Author Organization [facility] Address [address] [place] [address] Care Team Providers Care Education Program Specialist Name Role Phone Epi French MD Primary Care Provider [phone] Encounter Details Date Type Department Care Team (Late st Contact Info) Description 02/04/2003 Outpatient Historical [facility] Pain Management Procedures [address] 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
--- OUTSIDE RECORDS SUMMARY | 2024-09-06 17:34 | XMS_ITS | Encounter Summary ---
Author Organization [facility] Address [address] [place] [address] Care Team Providers Care Airport Manager Name Role Phone Epi French MD Primary Care Provider Encounter Details Date Type Department Care Team (Late st Contact Info) Description 04/16/2003 Outpatient Historical [facility] Pain Management Procedures [address] 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
--- OUTSIDE RECORDS SUMMARY | 2024-09-06 17:34 | XMS_ITS | Clinical Summary ---
Author Organization [facility] Address [address] [place] [place] [address] Care Team Providers Care Wildlife Biology Technician Name Role Phone Epi French MD Primary Care Provider [phone] Allergies Active Allergy Reactions Criticality Noted Date Comments Beet Nausea and Vomiting Low 10/01/2010 Sulfa (Sulfonamide Antibiotics) Hives,Swelling High 10/01/2010 Medications omeprazole (PRILOSEC) 20 mg Oral CpDR Take 20 mg by mouth daily. Active cloNIDine (CATAPRES) 0.1 mg Oral tablet Take 0.1 mg by mouth see administration instructions. 1 tab AM, 1 afternoon, 2 bedtime 1 Active lisinopril (PRINIVIL) 20 mg Oral tablet Take 20 mg by mouth daily. Active morphine (MS IR) 30 mg Oral tablet Take 30 mg by mouth 3 times daily. 1 Active Active Problems Problem Noted Date Diagnosed Date [...] on file Legal Sex Female 3:09 AM RANGE RIDER Gender Identity Not on file Sexual Orientation Not on file Last Filed Vital Signs Vital Sign Reading Time Taken Comments Blood Pressure 125/69 10/05/2010 2:53 PM CDT Pulse 53 10/05/2010 2:53 PM CDT Temperature 35.3 C (95.6 F) 10/05/2010 2:37 PM CDT Respiratory Rate 16 10/05/2010 2:53 PM CDT Oxygen Saturation 96% 10/05/2010 2:53 PM CDT Inhaled Oxygen Concentration - - Weight 74.8 kg (165 lb) 10/05/2010 11:44 AM CDT Height 162.6 cm (5' 4 ) 10/05/2010 11:44 AM CDT Body Mass Index 28.32 10/05/2010 11:44 AM CDT Plan of Treatment Health Maintenance Due Date Last Done Comments DTAP/TDAP/TD VACCINES (1 - Tdap) 12/21/1962 PNEUMOCOCCAL VACCINE 50+ YEA RS (1 of 2 - PCV) 12/21/1962 ZOSTER VACCINE (1 of 2) 12/21/1993 OSTEOPOROSIS SCREENING 12/21/2008 RSV VACCINE (60+ or ) (1 - 1-dose 75+ series) 12/21/2018 INFLUENZA VACCINE (#1) 2024 12/18/2001, 2000 Medical Devices Implanted Type Area Spectroscopist Device Identifier Shelf Expiration Date Model / Serial / Lot Log [id number] - Pain Management Implant Tray - 1 - Pump Synchromed Ii 40ml 8637-40 Implanted:Qty: 1 on 10/05/2010 at [facility] Catheter Right: Abdomen [employer]- NEUROLOGIC TECH 10/05/2017 8637-40 / [id number] / Intrathecal Catheter Revision Kit Implanted:Qty: 1 on 10/05/2010 at [facility] Other Back [employer]- NEUROLOGIC TECH [id number] / / [id number] Description:Intrathecal Cath eter Pump Segment Revision Kit #[id number] Medtronic Pump Patient Athletic Shoe Designer Implanted:Qty: 1 on 10/05/2010 at [facility] Other [employer]- NEUROLOGIC TECH [id number] / / Description:Pain Pump Patien t Athletic Shoe Designer Explanted Type Area Spectroscopist Device Identifier Shelf Expiration Date Model / Serial / Lot Pain Pump Explanted:Qty: 1 on 10/05/2010 at [facility] Other Right: Abdomen [employer] [id number] / [id number] / Description:pain pump, impla nted 12/12/2001, end of life, discarded per protocol Insurance MEDICARE PART A AND B MEDICAID [place] Advance Directives For more information, please contact: [phone] * Full Code (Latest Code Status on File) Date Activated Date Inactivated Comments 10/05/2010 12:10 PM 10/06/2010 2:01 AM * Full Code Date Activated Date Inactivated Comments 10/05/2010 11:46 AM 10/05/2010 12:10 PM Care Teams Wildlife Biology Technician Relationship Specialty Start Date End Date Epi French MD [address] [place] [phone] PCP - General Family Practice 09/29/10
--- OUTSIDE RECORDS SUMMARY | 2024-09-06 17:34 | XMS_ITS | Encounter Summary ---
Author Organization [facility] Address [address] [place] [address] Care Team Providers Care Foundry Technician Name Role Phone Epi French MD Primary Care Provider [phone] Encounter Details Date Type Department Care Team (Late st Contact Info) Description 04/28/2005 Outpatient Historical [facility] Pain Management Procedures [address] 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
--- OUTSIDE RECORDS SUMMARY | 2024-09-06 17:34 | XMS_ITS | Encounter Summary ---
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
--- OUTSIDE RECORDS SUMMARY | 2024-09-06 17:34 | XMS_ITS | Encounter Summary ---
Author Organization [facility] Address [address] [place] [address] Care Team Providers Care Manager Business Management Name Role Phone Epi French MD Primary Care Provider [phone] Encounter Details Date Type Department Care Team (Late st Contact Info) Description 01/11/2002 Outpatient Historical [facility] [address] [place] [address] Social History Tobacco Use Types Packs/Day Years Used Date Smoking Tobacco: Never Assessed Comments Unknown Sex and Gender Information Value Date Recorded Sex Assigned at Not on file Legal Sex Female 3:09 AM 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
--- OUTSIDE RECORDS SUMMARY | 2024-09-06 17:34 | XMS_ITS | Encounter Summary ---
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
--- OUTSIDE RECORDS SUMMARY | 2024-09-06 17:34 | XMS_ITS | Encounter Summary ---
Author Organization [facility] Address [address] [place] [address] Care Team Providers Care Plycor Operator Name Role Phone Epi French MD Primary Care Provider [phone] Encounter Details Date Type Department Care Team (Late st Contact Info) Description 06/30/2005 Outpatient Historical [facility] Pain Management Procedures [address] 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
--- OUTSIDE RECORDS SUMMARY | 2024-09-06 17:34 | XMS_ITS | Encounter Summary ---
Author Organization [facility] Address [address] [place] [address] Care Team Providers Care Digital Media Designer Name Role Phone Epi French MD Primary Care Provider Encounter Details Date Type Department Care Team (Latest Contact Info) Description 09/15/2004 Outpatient Historical [facility] Pain Management Procedures [address] [place] [address] Solomon Puga MD NO ADDRESS ON FILE FIT/ADJUST NERV/SENS SYSTEM DEVICE (Primary Dx) Social History Tobacco Use Types Packs/Day Years Used Date Smoking Tobacco: Never Assessed Comments Unknown Sex and Gender Information Value Date Recorded Sex Assigned at Not on file Legal Sex Female 3:09 AM CHIEF VENDOR QUALITY Gender Identity Not on file Sexual Orientation Not on file documented as of this encounter Plan of Treatment Not on file documented as of this encounter Visit Diagnoses Diagnosis Fitting and adjustment of other devices related to nervous system and special senses- Primary documented in this encounter Care Teams Digital Media Designer Relationship Specialty Start Date End Date Epi French MD [address] [place] [phone] PCP - General Family Practice 09/29/10 documented as of this encounter
--- OUTSIDE RECORDS SUMMARY | 2024-09-06 17:34 | XMS_ITS | Encounter Summary ---
Author Organization [facility] Address [address] [place] [address] Care Team Providers Care Rug Inspector Name Role Phone Epi French MD Primary Care Provider [phone] Encounter Details Date Type Department Care Team (Latest Contact Info) Description 07/31/2003 Outpatient Historical [facility] Pain Management Procedures [address] 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
--- OUTSIDE RECORDS SUMMARY | 2024-09-06 17:34 | XMS_ITS | Encounter Summary ---
Author Organization [facility] Address [address] [place] [address] Care Team Providers Care Button Grader Name Role Phone Epi French MD Primary Care Provider [phone] Encounter Details Date Type Department Care Team (Late st Contact Info) Description 01/18/2001 Outpatient [facility] [address] [place] [address] Social History Tobacco Use Types Packs/Day Years Used Date Smoking Tobacco: Never Assessed Comments Unknown Sex and Gender Information Value Date Recorded Sex Assigned at Not on file Legal Sex Female 3:09 AM CLINICAL PROJECT COORDINATOR Gender Identity Not on file Sexual Orientation Not on file documented as of this encounter Plan of Treatment Not on file documented as of this encounter Visit Diagnoses Not on filedocumented in this encounter Care Teams Button Grader Relationship Specialty Start Date End Date Epi French MD [address] [place] [phone] PCP - General Family Practice 09/29/10 documented as of this encounter
--- OUTSIDE RECORDS SUMMARY | 2024-09-06 17:34 | XMS_ITS | Encounter Summary ---
Author Organization [facility] Address [address] [place] [address] Care Team Providers Care Coupling Machine Operator Name Role Phone Epi French MD Primary Care Provider [phone] Encounter Details Date Type Department Care Team (Late st Contact Info) Description 11/16/2006 Outpatient Historical [facility] Pain Management Procedures [address] 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
--- OUTSIDE RECORDS SUMMARY | 2024-09-06 17:34 | XMS_ITS | Encounter Summary ---
Author Organization [facility] Address [address] [place] [address] Care Team Providers Care Aircraft Systems Technician Name Role Phone Epi French MD Primary Care Provider [phone] Encounter Details Date Type Department Care Team (Late st Contact Info) Description 03/15/2002 Outpatient Historical [facility] [address] [place] [address] Social History Tobacco Use Types Packs/Day Years Used Date Smoking Tobacco: Never Assessed Comments Unknown Sex and Gender Information Value Date Recorded Sex Assigned at Not on file Legal Sex Female 3:09 AM INNER TUBE CUTTER Gender Identity Not on file Sexual Orientation Not on file documented as of this encounter Plan of Treatment Not on file documented as of this encounter Visit Diagnoses Not on filedocumented in this encounter Care Teams Aircraft Systems Technician Relationship Specialty Start Date End Date Epi French MD [address] [place] [phone] PCP - General Family Practice 09/29/10 documented as of this encounter
--- OUTSIDE RECORDS SUMMARY | 2024-09-06 17:34 | XMS_ITS | Encounter Summary ---
Author Organization [facility] Address [address] [place] [address] Care Team Providers Care Residential Finish Carpenter Name Role Phone Epi French MD Primary Care Provider [phone] Encounter Details Date Type Department Care Team (Latest Contact Info) Description 03/15/2002 Outpatient Historical [facility] Multidisciplinary Chronic Pain [address] [place] [address] Cabrera Altamirano MD NO ADDRESS ON FILE FIT/ADJUST NERV/SENS SYSTEM DEVICE (Primary Dx) Social History Tobacco Use Types Packs/Day Years Used Date Smoking Tobacco: Never Assessed Comments Unknown Sex and Gender Information Value Date Recorded Sex Assigned at Not on file Legal Sex Female 3:09 AM GIS PROGRAMMER Gender Identity Not on file Sexual Orientation Not on file documented as of this encounter Plan of Treatment Not on file documented as of this encounter Visit Diagnoses Diagnosis Fitting and adjustment of other devices related to nervous system and special senses- Primary documented in this encounter Care Teams Residential Finish Carpenter Relationship Specialty Start Date End Date Epi French MD [address] [place] [phone] PCP - General Family Practice 09/29/10 documented as of this encounter
--- OUTSIDE RECORDS SUMMARY | 2024-09-06 17:34 | XMS_ITS | Encounter Summary ---
Author Organization [facility] Address [address] [place] [address] Care Team Providers Care Wire Sawyer Name Role Phone Epi French MD Primary Care Provider [phone] Encounter Details Date Type Department Care Team (Latest Contact Info) Description 07/13/2001 Outpatient Historical [facility] Regulo Cm MD [address] [place] [address] BURSITIS NEC (Primary Dx); CRAMP IN LIMB; ORGANIC BRAIN SYND NEC Social History Tobacco Use Types Packs/Day Years Used Date Smoking Tobacco: Never Assessed Comments Unknown Sex and Gender Information Value Date Recorded Sex Assigned at Not on file Legal Sex Female 3:09 AM MEATMAN Gender Identity Not on file Sexual Orientation Not on file documented as of this encounter Plan of Treatment Not on file documented as of this encounter Visit Diagnoses Diagnosis Other bursitis disorders- Primary Cramp of limb 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
--- OUTSIDE RECORDS SUMMARY | 2024-09-06 17:34 | XMS_ITS | Encounter Summary ---
Author Organization [facility] Address [address] [place] [address] Care Team Providers Care Gate Mortiser Operator Name Role Phone Epi French MD Primary Care Provider [phone] Encounter Details Date Type Department Care Team (Late st Contact Info) Description 05/29/2006 Outpatient Historical [facility] Pain Management Procedures [address] [place] [address] Cabrera Altamirano MD NO ADDRESS ON FILE Social History Tobacco Use Types Packs/Day Years Used Date Smoking Tobacco: Never Assessed Comments Unknown Sex and Gender Information Value Date Recorded Sex Assigned at Not on file Legal Sex Female 3:09 AM KAITARA TARAKA Gender Identity Not on file Sexual Orientation Not on file documented as of this encounter Plan of Treatment Not on file documented as of this encounter Visit Diagnoses Not on filedocumented in this encounter Care Teams Gate Mortiser Operator Relationship Specialty Start Date End Date Epi French MD [address] [place] [phone] PCP - General Family Practice 09/29/10 documented as of this encounter
--- OUTSIDE RECORDS SUMMARY | 2024-09-06 17:34 | XMS_ITS | Encounter Summary ---
Author Organization [facility] Address [address] [place] [address] Care Team Providers Care Production Weigher Name Role Phone Epi French MD Primary Care Provider [phone] Encounter Details Date Type Department Care Team (Late st Contact Info) Description 03/12/2003 Outpatient Historical [facility] Pain Management Procedures [address] 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
--- OUTSIDE RECORDS SUMMARY | 2024-09-06 17:34 | XMS_ITS | Encounter Summary ---
Author Organization [facility] Address [address] [place] [address] Care Team Providers Care Orthopedic Podiatrist Name Role Phone Epi French MD Primary Care Provider [phone] Encounter Details Date Type Department Care Team (Late st Contact Info) Description 01/31/2007 Inpatient Historical [facility] Pain Management Procedures [address] 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
--- OUTSIDE RECORDS SUMMARY | 2024-09-06 17:34 | XMS_ITS | Encounter Summary ---
Author Organization [facility] Address [address] [place] [address] Care Team Providers Care Supervisor Tree Trimming Name Role Phone Epi French MD Primary Care Provider [phone] Encounter Details Date Type Department Care Team (Latest Contact Info) Description 06/25/[address] [facility] Pain Management Procedures [address] [place] [address] Solomon Puga MD NO ADDRESS ON FILE FIT/ADJUST NERV/SENS SYSTEM DEVICE (Primary Dx) Social History Tobacco Use Types Packs/Day Years Used Date Smoking Tobacco: Never Assessed Comments Unknown Sex and Gender Information Value Date Recorded Sex Assigned at Not on file Legal Sex Female 3:09 AM EDUCATION MANAGER Gender Identity Not on file Sexual Orientation Not on file documented as of this encounter Plan of Treatment Not on file documented as of this encounter Visit Diagnoses Diagnosis Fitting and adjustment of other devices related to nervous system and special senses- Primary documented in this encounter Care Teams Supervisor Tree Trimming Relationship Specialty Start Date End Date Epi French MD [address] [place] [phone] PCP - General Family Practice 09/29/10 documented as of this encounter
--- OUTSIDE RECORDS SUMMARY | 2024-09-06 17:34 | XMS_ITS | Encounter Summary ---
Author Organization [facility] Address [address] [place] [address] Care Team Providers Care Television Installer Name Role Phone Epi French MD Primary Care Provider [phone] Encounter Details Date Type Department Care Team (Late st Contact Info) Description 01/06/2005 Outpatient Historical [facility] Pain Management Procedures [address] [place] [address] Cabrera Altamirano MD NO ADDRESS ON FILE FIT/ADJUST NERV/SENS SYSTEM DEVICE (Primary Dx) Social History Tobacco Use Types Packs/Day Years Used Date Smoking Tobacco: Never Assessed Comments Unknown Sex and Gender Information Value Date Recorded Sex Assigned at Not on file Legal Sex Female 3:[address] PILOT Gender Identity Not on file Sexual Orientation Not on file documented as of this encounter Plan of Treatment Not on file documented as of this encounter Visit Diagnoses Diagnosis Fitting and adjustment of other devices related to nervous system and special senses- Primary documented in this encounter Care Teams Television Installer Relationship Specialty Start Date End Date Epi French MD [address] [place] [phone] PCP - General Family Practice 09/29/10 documented as of this encounter
--- OUTSIDE RECORDS SUMMARY | 2024-09-06 17:34 | XMS_ITS | Encounter Summary ---
Author Organization [facility] Address [address] [place] [address] Care Team Providers Care Set Up Technician Name Role Phone Epi French MD Primary Care Provider [phone] Encounter Details Date Type Department Care Team (Latest Contact Info) Description 10/21/2004 Outpatient Historical [facility] Pain Management Procedures [address] [place] [address] Solomon Puga MD NO ADDRESS ON FILE FIT/ADJUST NERV/SENS SYSTEM DEVICE (Primary Dx) Social History Tobacco Use Types Packs/Day Years Used Date Smoking Tobacco: Never Assessed Comments Unknown Sex and Gender Information Value Date Recorded Sex Assigned at Not on file Legal Sex Female 3:09 AM SUPPLEMENTAL NURSE Gender Identity Not on file Sexual Orientation Not on file documented as of this encounter Plan of Treatment Not on file documented as of this encounter Visit Diagnoses Diagnosis Fitting and adjustment of other devices related to nervous system and special senses- Primary documented in this encounter Care Teams Set Up Technician Relationship Specialty Start Date End Date Epi French MD [address] [place] [phone] PCP - General Family Practice 09/29/10 documented as of this encounter
--- OUTSIDE RECORDS SUMMARY | 2024-09-06 17:34 | XMS_ITS | Encounter Summary ---
Author Organization [facility] Address [address] [place] [address] Care Team Providers Care Criminal Defense Lawyer Name Role Phone Epi French MD Primary Care Provider [phone] Encounter Details Date Type Department Care Team (Latest Contact Info) Description 01/29/2002 Outpatient Historical [facility] Multidisciplinary Chronic Pain [address] [place] [address] Cabrera Altamirano MD NO ADDRESS ON FILE FIT/ADJUST NERV/SENS SYSTEM DEVICE (Primary Dx) Social History Tobacco Use Types Packs/Day Years Used Date Smoking Tobacco: Never Assessed Comments Unknown Sex and Gender Information Value Date Recorded Sex Assigned at Not on file Legal Sex Female 3:09 AM ROLLED GLASS CROSSCUTTER Gender Identity Not on file Sexual Orientation Not on file documented as of this encounter Plan of Treatment Not on file documented as of this encounter Visit Diagnoses Diagnosis Fitting and adjustment of other devices related to nervous system and special senses- Primary documented in this encounter Care Teams Criminal Defense Lawyer Relationship Specialty Start Date End Date Epi French MD [address] [place] [phone] PCP - General Family Practice 09/29/10 documented as of this encounter
--- OUTSIDE RECORDS SUMMARY | 2024-09-06 17:34 | XMS_ITS | Encounter Summary ---
Author Organization [facility] Address [address] [place] [address] Care Team Providers Care Plastic Molding Operator Name Role Phone Epi French MD Primary Care Provider [phone] Encounter Details Date Type Department Care Team (Late st Contact Info) Description 03/09/2001 Outpatient Historical [facility] [address] [place] [address] Social History Tobacco Use Types Packs/Day Years Used Date Smoking Tobacco: Never Assessed Comments Unknown Sex and Gender Information Value Date Recorded Sex Assigned at Not on file Legal Sex Female 3:09 AM PHOTOGRAPHER MODEL Gender Identity Not on file Sexual Orientation Not on file documented as of this encounter Plan of Treatment Not on file documented as of this encounter Visit Diagnoses Not on filedocumented in this encounter Care Teams Plastic Molding Operator Relationship Specialty Start Date End Date Epi French MD [address] [place] [phone] PCP - General Family Practice 09/29/10 documented as of this encounter
--- OUTSIDE RECORDS SUMMARY | 2024-09-06 17:34 | XMS_ITS | Encounter Summary ---
Author Organization [facility] Address [address] [place] [address] Care Team Providers Care Kitchen Aide Name Role Phone Epi French MD Primary Care Provider [phone] Encounter Details Date Type Department Care Team (Late st Contact Info) Description 01/01/2001 Outpatient [facility] [address] [place] [address] Social History Tobacco Use Types Packs/Day Years Used Date Smoking Tobacco: Never Assessed Comments Unknown Sex and Gender Information Value Date Recorded Sex Assigned at Not on file Legal Sex Female 3:09 AM MGMT ANALYST Gender Identity Not on file Sexual Orientation Not on file documented as of this encounter Plan of Treatment Not on file documented as of this encounter Visit Diagnoses Not on filedocumented in this encounter Care Teams Kitchen Aide Relationship Specialty Start Date End Date Epi French MD [address] [place] [phone] PCP - General Family Practice 09/29/10 documented as of this encounter
--- OUTSIDE RECORDS SUMMARY | 2024-09-06 17:34 | XMS_ITS | Encounter Summary ---
Author Organization [facility] Address [address] [place] [address] Care Team Providers Care Lead Tinner Name Role Phone Epi French MD Primary Care Provider [phone] Encounter Details Date Type Department Care Team (Late st Contact Info) Description 02/14/2005 Outpatient Historical [facility] Pain Management Procedures [address] [place] [address] Cabrera Altamirano MD NO ADDRESS ON FILE FIT/ADJUST NERV/SENS SYSTEM DEVICE (Primary Dx) Social History Tobacco Use Types Packs/Day Years Used Date Smoking Tobacco: Never Assessed Comments Unknown Sex and Gender Information Value Date Recorded Sex Assigned at Not on file Legal Sex Female 3:09 AM RESEARCH & INSIGHTS EXECUTIVE Gender Identity Not on file Sexual Orientation Not on file documented as of this encounter Plan of Treatment Not on file documented as of this encounter Visit Diagnoses Diagnosis Fitting and adjustment of other devices related to nervous system and special senses- Primary documented in this encounter Care Teams Lead Tinner Relationship Specialty Start Date End Date Epi French MD [address] [place] [phone] PCP - General Family Practice 09/29/10 documented as of this encounter
--- OUTSIDE RECORDS SUMMARY | 2024-09-06 17:34 | XMS_ITS | Encounter Summary ---
Author Organization [facility] Address [address] [place] [address] Care Team Providers Care Sewer Maintenance Supervisor Name Role Phone Epi French MD Primary Care Provider [phone] Encounter Details Date Type Department Care Team (Late st Contact Info) Description 07/11/2006 Outpatient Historical [facility] Pain Management Procedures [address] [place] [address] Cabrera Altamirano MD NO ADDRESS ON FILE Social History Tobacco Use Types Packs/Day Years Used Date Smoking Tobacco: Never Assessed Comments Unknown Sex and Gender Information Value Date Recorded Sex Assigned at Not on file Legal Sex Female 3:09 AM SYSTEM ARCHIVE ANALYST Gender Identity Not on file Sexual Orientation Not on file documented as of this encounter Plan of Treatment Not on file documented as of this encounter Visit Diagnoses Not on filedocumented in this encounter Care Teams Sewer Maintenance Supervisor Relationship Specialty Start Date End Date Epi French MD [address] [place] [phone] PCP - General Family Practice 09/29/10 documented as of this encounter
--- OUTSIDE RECORDS SUMMARY | 2024-09-06 17:34 | XMS_ITS | Encounter Summary ---
Author Organization [facility] Address [address] [place] [address] Care Team Providers Care Logistics Clerk Name Role Phone Epi French MD Primary Care Provider [phone] Encounter Details Date Type Department Care Team (Late st Contact Info) Description 03/24/2005 Outpatient Historical [facility] Pain Management Procedures [address] 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
--- OUTSIDE RECORDS SUMMARY | 2024-09-06 17:34 | XMS_ITS | Encounter Summary ---
Author Organization [facility] Address [address] [place] [address] Care Team Providers Care Car Dealer Name Role Phone Epi French MD Primary Care Provider [phone] Encounter Details Date Type Department Care Team (Late st Contact Info) Description 02/05/2001 Outpatient Historical [facility] [address] [place] [address] Social History Tobacco Use Types Packs/Day Years Used Date Smoking Tobacco: Never Assessed Comments Unknown Sex and Gender Information Value Date Recorded Sex Assigned at Not on file Legal Sex Female 3:09 AM INVESTIGATION OFFICER Gender Identity Not on file Sexual Orientation Not on file documented as of this encounter Plan of Treatment Not on file documented as of this encounter Visit Diagnoses Not on filedocumented in this encounter Care Teams Car Dealer Relationship Specialty Start Date End Date Epi French MD [address] [place] [phone] PCP - General Family Practice 09/29/10 documented as of this encounter
--- OUTSIDE RECORDS SUMMARY | 2024-09-06 17:34 | XMS_ITS | Encounter Summary ---
Author Organization [facility] Address [address] [place] [address] Care Team Providers Care Entry Level Business Analyst Name Role Phone Epi French MD Primary Care Provider [phone] Encounter Details Date Type Department Care Team (Latest Contact Info) Description 09/04/2003 Outpatient Historical [facility] Pain Management Procedures [address] [place] [address] Danny Knowles MD NO ADDRESS ON FILE FIT/ADJUST NERV/SENS SYSTEM DEVICE (Primary Dx) Social History Tobacco Use Types Packs/Day Years Used Date Smoking Tobacco: Never Assessed Comments Unknown Sex and Gender Information Value Date Recorded Sex Assigned at Not on file Legal Sex Female 3:09 AM ELECTRONIC SERVICE TECHNICIAN Gender Identity Not on file Sexual Orientation Not on file documented as of this encounter Plan of Treatment Not on file documented as of this encounter Visit Diagnoses Diagnosis Fitting and adjustment of other devices related to nervous system and special senses- Primary documented in this encounter Care Teams Entry Level Business Analyst Relationship Specialty Start Date End Date Epi French MD [address] [place] [phone] PCP - General Family Practice 09/29/10 documented as of this encounter
--- OUTSIDE RECORDS SUMMARY | 2024-09-06 17:34 | XMS_ITS | Encounter Summary ---
Author Organization [facility] Address [address] [place] [address] Care Team Providers Care Technical Producer Name Role Phone Epi French MD Primary Care Provider [phone] Encounter Details Date Type Department Care Team (Latest Contact Info) Description 10/13/2000 Outpatient Historical [facility] Jay Perales NO ADDRESS ON FILE Esophageal reflux (Primary Dx); Contact dermatitis and other eczema, due to unspecified cause Social History Tobacco Use Types Packs/Day Years Used Date Smoking Tobacco: Never Assessed Comments Unknown Sex and Gender Information Value Date Recorded Sex Assigned at Not on file Legal Sex Female 3:09 AM HPLC CHEMIST Gender Identity Not on file Sexual Orientation Not on file documented as of this encounter Plan of Treatment Not on file documented as of this encounter Visit Diagnoses Diagnosis Esophageal reflux- Primary Contact dermatitis and other eczema, due to unspecified cause documented in this encounter Care Teams Technical Producer Relationship Specialty Start Date End Date Epi French MD [address] [place] [phone] PCP - General Family Practice 09/29/10 documented as of this encounter
--- OUTSIDE RECORDS SUMMARY | 2024-09-06 17:34 | XMS_ITS | Encounter Summary ---
Author Organization [facility] Address [address] [place] [address] Care Team Providers Care Microbiology Technician Name Role Phone Epi French MD Primary Care Provider [phone] Encounter Details Date Type Department Care Team (Late st Contact Info) Description 02/11/2005 Outpatient Historical [facility] Cabrera Altamirano MD NO ADDRESS ON FILE Social History Tobacco Use Types Packs/Day Years Used Date Smoking Tobacco: Never Assessed Comments Unknown Sex and Gender Information Value Date Recorded Sex Assigned at Not on file Legal Sex Female 3:09 AM SKI LIFT MECHANIC Gender Identity Not on file Sexual Orientation Not on file documented as of this encounter Plan of Treatment Not on file documented as of this encounter Visit Diagnoses Not on filedocumented in this encounter Care Teams Microbiology Technician Relationship Specialty Start Date End Date Epi French MD [address] [place] [phone] PCP - General Family Practice 09/29/10 documented as of this encounter
--- OUTSIDE RECORDS SUMMARY | 2024-09-06 17:34 | XMS_ITS | Encounter Summary ---
Author Organization [facility] Address [address] [place] [address] Care Team Providers Care Leather Cartridge Belt Maker Name Role Phone Epi French MD Primary Care Provider [phone] Encounter Details Date Type Department Care Team (Latest Contact Info) Description 12/29/2003 Outpatient Historical [facility] Pain Management Procedures [address] [place] [address] Danny Knowles MD NO ADDRESS ON FILE FIT/ADJUST NERV/SENS SYSTEM DEVICE (Primary Dx) Social History Tobacco Use Types Packs/Day Years Used Date Smoking Tobacco: Never Assessed Comments Unknown Sex and Gender Information Value Date Recorded Sex Assigned at Not on file Legal Sex Female 3:09 AM NURSE ORTHOPEDIC Gender Identity Not on file Sexual Orientation Not on file documented as of this encounter Plan of Treatment Not on file documented as of this encounter Visit Diagnoses Diagnosis Fitting and adjustment of other devices related to nervous system and special senses- Primary documented in this encounter Care Teams Leather Cartridge Belt Maker Relationship Specialty Start Date End Date Epi French MD [address] [place] [phone] PCP - General Family Practice 09/29/10 documented as of this encounter
--- OUTSIDE RECORDS SUMMARY | 2024-09-06 17:34 | XMS_ITS | Encounter Summary ---
Author Organization [facility] Address [address] [place] [address] Care Team Providers Care Mineral Resources Inspector Name Role Phone Epi French MD Primary Care Provider [phone] Encounter Details Date Type Department Care Team (Late st Contact Info) Description 10/05/2006 Outpatient Historical [facility] Pain Management Procedures [address] [place] [address] Cabrera Altamirano MD NO ADDRESS ON FILE Adjust Nerv Syst Device (Primary Dx) Social History Tobacco Use Types Packs/Day Years Used Date Smoking Tobacco: Never Assessed Comments Unknown Sex and Gender Information Value Date Recorded Sex Assigned at Not on file Legal Sex Female 3:09 AM AERONAUTICAL PROJECT ENGINEER Gender Identity Not on file Sexual Orientation Not on file documented as of this encounter Plan of Treatment Not on file documented as of this encounter Visit Diagnoses Diagnosis Fitting and adjustment of other devices related to nervous system and special senses- Primary documented in this encounter Care Teams Mineral Resources Inspector Relationship Specialty Start Date End Date Epi French MD [address] [place] [phone] PCP - General Family Practice 09/29/10 documented as of this encounter
--- OUTSIDE RECORDS SUMMARY | 2024-09-06 17:34 | XMS_ITS | Encounter Summary ---
Author Organization [facility] Address [address] [place] [address] Care Team Providers Care Dredge Worker Name Role Phone Epi French MD Primary Care Provider Encounter Details Date Type Department Care Team (Latest Contact Info) Description 03/25/2002 Outpatient Historical [facility] Multidisciplinary Chronic Pain [address] [place] [address] Cabrera Altamirano MD NO ADDRESS ON FILE FIT/ADJUST NERV/SENS SYSTEM DEVICE (Primary Dx) Social History Tobacco Use Types Packs/Day Years Used Date Smoking Tobacco: Never Assessed Comments Unknown Sex and Gender Information Value Date Recorded Sex Assigned at Not on file Legal Sex Female 3:09 AM AD COPY WRITER Gender Identity Not on file Sexual Orientation Not on file documented as of this encounter Plan of Treatment Not on file documented as of this encounter Visit Diagnoses Diagnosis Fitting and adjustment of other devices related to nervous system and special senses- Primary documented in this encounter Care Teams Dredge Worker Relationship Specialty Start Date End Date Epi French MD [address] [place] [phone] PCP - General Family Practice 09/29/10 documented as of this encounter
--- OUTSIDE RECORDS SUMMARY | 2024-09-06 17:34 | XMS_ITS | Encounter Summary ---
Author Organization [facility] Address [address] [place] [address] Care Team Providers Care Osteopathic Resident Name Role Phone Epi French MD Primary Care Provider [phone] Encounter Details Date Type Department Care Team (Late st Contact Info) Description 02/21/2001 Outpatient Historical [facility] [address] [place] [address] Social History Tobacco Use Types Packs/Day Years Used Date Smoking Tobacco: Never Assessed Comments Unknown Sex and Gender Information Value Date Recorded Sex Assigned at Not on file Legal Sex Female 3:09 AM FIELD AIDE Gender Identity Not on file Sexual Orientation Not on file documented as of this encounter Plan of Treatment Not on file documented as of this encounter Visit Diagnoses Not on filedocumented in this encounter Care Teams Osteopathic Resident Relationship Specialty Start Date End Date Epi French MD [address] [place] [phone] PCP - General Family Practice 09/29/10 documented as of this encounter
--- OUTSIDE RECORDS SUMMARY | 2024-09-06 17:34 | XMS_ITS | Encounter Summary ---
Author Organization [facility] Address [address] [place] [address] Care Team Providers Care Multiple Punch Press Operator Name Role Phone Epi French MD Primary Care Provider [phone] Encounter Details Date Type Department Care Team (Late st Contact Info) Description 03/01/2002 Outpatient Historical [facility] [address] [place] [address] Social History Tobacco Use Types Packs/Day Years Used Date Smoking Tobacco: Never Assessed Comments Unknown Sex and Gender Information Value Date Recorded Sex Assigned at Not on file Legal Sex Female 3:09 AM MECHANICAL SYSTEMS DESIGNER Gender Identity Not on file Sexual Orientation Not on file documented as of this encounter Plan of Treatment Not on file documented as of this encounter Visit Diagnoses Not on filedocumented in this encounter Care Teams Multiple Punch Press Operator Relationship Specialty Start Date End Date Epi French MD [address] [place] [phone] PCP - General Family Practice 09/29/10 documented as of this encounter
--- OUTSIDE RECORDS SUMMARY | 2024-09-06 17:34 | XMS_ITS | Encounter Summary ---
Author Organization [facility] Address [address] [place] [address] Care Team Providers Care Stitchdown Toe Former Name Role Phone Epi French MD Primary Care Provider [phone] Encounter Details Date Type Department Care Team (Late st Contact Info) Description 07/13/2006 Outpatient Historical [facility] Pain Management Procedures [address] [place] [address] Cabrera Altamirano MD NO ADDRESS ON FILE Adjust Nerv Syst Device (Primary Dx) Social History Tobacco Use Types Packs/Day Years Used Date Smoking Tobacco: Never Assessed Comments Unknown Sex and Gender Information Value Date Recorded Sex Assigned at Not on file Legal Sex Female 3:09 AM TIME STUDY STATISTICIAN Gender Identity Not on file Sexual Orientation Not on file documented as of this encounter Plan of Treatment Not on file documented as of this encounter Visit Diagnoses Diagnosis Fitting and adjustment of other devices related to nervous system and special senses- Primary documented in this encounter Care Teams Stitchdown Toe Former Relationship Specialty Start Date End Date Epi French MD [address] [place] [phone] PCP - General Family Practice 09/29/10 documented as of this encounter
--- OUTSIDE RECORDS SUMMARY | 2024-09-06 17:34 | XMS_ITS | Encounter Summary ---
Author Organization [facility] Address [address] [place] [address] Care Team Providers Care Packaging Designer Name Role Phone Epi French MD Primary Care Provider [phone] Encounter Details Date Type Department Care Team (Late st Contact Info) Description 03/29/2007 Outpatient Historical [facility] Pain Management Procedures [address] [place] [address] Cabrera Altamirano MD NO ADDRESS ON FILE Social History Tobacco Use Types Packs/Day Years Used Date Smoking Tobacco: Never Assessed Comments Unknown Sex and Gender Information Value Date Recorded Sex Assigned at Not on file Legal Sex Female 3:09 AM DIGITAL MEDIA PRODUCER Gender Identity Not on file Sexual Orientation Not on file documented as of this encounter Plan of Treatment Not on file documented as of this encounter Visit Diagnoses Not on filedocumented in this encounter Care Teams Packaging Designer Relationship Specialty Start Date End Date Epi French MD [address] [place] [phone] PCP - General Family Practice 09/29/10 documented as of this encounter
--- OUTSIDE RECORDS SUMMARY | 2024-09-06 17:35 | XMS_ITS | Encounter Summary ---
Author Organization [facility] Address [address] [place] [address] Care Team Providers Care Metallurgical Laboratory Assistant Name Role Phone Epi French MD Primary Care Provider [phone] Encounter Details Date Type Department Care Team (Latest Contact Info) Description 02/04/2004 Outpatient Historical [facility] Pain Management Procedures [address] 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
--- OUTSIDE RECORDS SUMMARY | 2024-09-06 17:35 | XMS_ITS | Encounter Summary ---
Author Organization [facility] Address [address] [place] [address] Care Team Providers Care Human Resources Assistant Manager Name Role Phone Epi French MD Primary Care Provider [phone] Encounter Details Date Type Department Care Team (Late st Contact Info) Description 05/24/2004 Outpatient Historical [facility] [address] 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
--- OUTSIDE RECORDS SUMMARY | 2024-09-06 17:35 | XMS_ITS | Encounter Summary ---
Author Organization [facility] Address [address] [place] [address] Care Team Providers Care Drapery Operator Name Role Phone Epi French MD Primary Care Provider Encounter Details Date Type Department Care Team (Latest Contact Info) Description 08/06/2004 Outpatient Historical [facility] Pain Management Procedures [address] [place] [address] Solomon Puga MD NO ADDRESS ON FILE FIT/ADJUST NERV/SENS SYSTEM DEVICE (Primary Dx) Social History Tobacco Use Types Packs/Day Years Used Date Smoking Tobacco: Never Assessed Comments Unknown Sex and Gender Information Value Date Recorded Sex Assigned at Not on file Legal Sex Female 3:09 AM LEATHER POLISHER Gender Identity Not on file Sexual Orientation Not on file documented as of this encounter Plan of Treatment Not on file documented as of this encounter Visit Diagnoses Diagnosis Fitting and adjustment of other devices related to nervous system and special senses- Primary documented in this encounter Care Teams Drapery Operator Relationship Specialty Start Date End Date Epi French MD [address] [place] [phone] PCP - General Family Practice 09/29/10 documented as of this encounter
--- OUTSIDE RECORDS SUMMARY | 2024-09-06 17:35 | XMS_ITS | Encounter Summary ---
Author Organization [facility] Address [address] [place] [address] Care Team Providers Care Internal Corrosion Specialist Name Role Phone Epi French MD Primary Care Provider [phone] Encounter Details Date Type Department Care Team (Late st Contact Info) Description 07/01/2004 Outpatient Historical [facility] Pain Management Procedures [address] [place] [address] Cabrera Altamirano MD NO ADDRESS ON FILE FIT/ADJUST NERV/SENS SYSTEM DEVICE (Primary Dx) Social History Tobacco Use Types Packs/Day Years Used Date Smoking Tobacco: Never Assessed Comments Unknown Sex and Gender Information Value Date Recorded Sex Assigned at Not on file Legal Sex Female 3:09 AM BLUE PRINTS TRIMMER Gender Identity Not on file Sexual Orientation Not on file documented as of this encounter Plan of Treatment Not on file documented as of this encounter Visit Diagnoses Diagnosis Fitting and adjustment of other devices related to nervous system and special senses- Primary documented in this encounter Care Teams Internal Corrosion Specialist Relationship Specialty Start Date End Date Epi French MD [address] [place] [phone] PCP - General Family Practice 09/29/10 documented as of this encounter
--- OUTSIDE RECORDS SUMMARY | 2024-09-06 17:35 | XMS_ITS | Encounter Summary ---
Author Organization [facility] Address [address] [place] [address] Care Team Providers Care Human Resources Coordinator Name Role Phone Epi French MD Primary Care Provider [phone] Encounter Details Date Type Department Care Team (Late st Contact Info) Description 04/17/2006 Outpatient Historical [facility] Pain Management Procedures [address] [place] [address] Cabrera Altamirano MD NO ADDRESS ON FILE Adjust Nerv Syst Device (Primary Dx) Social History Tobacco Use Types Packs/Day Years Used Date Smoking Tobacco: Never Assessed Comments Unknown Sex and Gender Information Value Date Recorded Sex Assigned at Not on file Legal Sex Female 3:09 AM MATRIX REPAIRER Gender Identity Not on file Sexual Orientation Not on file documented as of this encounter Plan of Treatment Not on file documented as of this encounter Visit Diagnoses Diagnosis Fitting and adjustment of other devices related to nervous system and special senses- Primary documented in this encounter Care Teams Human Resources Coordinator Relationship Specialty Start Date End Date Epi French MD [address] [place] [phone] PCP - General Family Practice 09/29/10 documented as of this encounter
--- OUTSIDE RECORDS SUMMARY | 2024-09-06 17:35 | XMS_ITS | Encounter Summary ---
Author Organization [facility] Address [address] [place] [address] Care Team Providers Care Legal Billing Clerk Name Role Phone Epi French MD Primary Care Provider [phone] Encounter Details Date Type Department Care Team (Late st Contact Info) Description 02/04/2004 Outpatient Historical [facility] [address] 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
--- OUTSIDE RECORDS SUMMARY | 2024-09-06 17:35 | XMS_ITS | Encounter Summary ---
Author Organization [facility] Address [address] [place] [address] Care Team Providers Care Route Contractor Name Role Phone Epi French MD Primary Care Provider [phone] Encounter Details Date Type Department Care Team (Late st Contact Info) Description 04/16/[address] [facility] Pain Management Procedures [address] [place] [address] Cabrera Altamirano MD NO ADDRESS ON FILE FIT/ADJUST NERV/SENS SYSTEM DEVICE (Primary Dx) Social History Tobacco Use Types Packs/Day Years Used Date Smoking Tobacco: Never Assessed Comments Unknown Sex and Gender Information Value Date Recorded Sex Assigned at Not on file Legal Sex Female 3:09 AM PUTTY PATCHER Gender Identity Not on file Sexual Orientation Not on file documented as of this encounter Plan of Treatment Not on file documented as of this encounter Visit Diagnoses Diagnosis Fitting and adjustment of other devices related to nervous system and special senses- Primary documented in this encounter Care Teams Route Contractor Relationship Specialty Start Date End Date Epi French MD [address] [place] [phone] PCP - General Family Practice 09/29/10 documented as of this encounter
--- OUTSIDE RECORDS SUMMARY | 2024-09-06 17:35 | XMS_ITS | Encounter Summary ---
Author Organization [facility] Address [address] [place] [address] Care Team Providers Care Security Tester Name Role Phone Eip French MD Primary Care Provider [phone] Encounter Details Date Type Department Care Team (Late st Contact Info) Description 2005 Outpatient Historical [facility] Pain Management Procedures [address] [place] [address] Cabrera Altamirano MD NO ADDRESS ON FILE Social History Tobacco Use Types Packs/Day Years Used Date Smoking Tobacco: Never Assessed Comments Unknown Sex and Gender Information Value Date Recorded Sex Assigned at Not on file Legal Sex Female 3:09 AM AUTOMOTIVE REPAIR TECHNICIAN Gender Identity Not on file Sexual Orientation Not on file documented as of this encounter Plan of Treatment Not on file documented as of this encounter Visit Diagnoses Not on filedocumented in this encounter Care Teams Security Tester Relationship Specialty Start Date End Date Epi French MD [address] [place] [phone] PCP - General Family Practice 09/29/10 documented as of this encounter
--- OUTSIDE RECORDS SUMMARY | 2024-09-06 17:35 | XMS_ITS | Encounter Summary ---
Author Organization [facility] Address [address] [place] [address] Care Team Providers Care Release Of Information Specialist Name Role Phone Epi French MD Primary Care Provider [phone] Encounter Details Date Type Department Care Team (Late st Contact Info) Description 12/26/2005 Outpatient Historical [facility] Pain Management Procedures [address] [place] [address] Cabrera Altamirano MD NO ADDRESS ON FILE Adjust Nerv Syst Device (Primary Dx) Social History Tobacco Use Types Packs/Day Years Used Date Smoking Tobacco: Never Assessed Comments Unknown Sex and Gender Information Value Date Recorded Sex Assigned at Not on file Legal Sex Female 3:09 AM MATERIAL CLERK Gender Identity Not on file Sexual Orientation Not on file documented as of this encounter Plan of Treatment Not on file documented as of this encounter Visit Diagnoses Diagnosis Fitting and adjustment of other devices related to nervous system and special senses- Primary documented in this encounter Care Teams Release Of Information Specialist Relationship Specialty Start Date End Date Epi French MD [address] [place] [phone] PCP - General Family Practice 09/29/10 documented as of this encounter
--- OUTSIDE RECORDS SUMMARY | 2024-09-06 17:35 | XMS_ITS | Encounter Summary ---
Author Organization [facility] Address [address] [place] [address] Care Team Providers Care Blending Tank Tender Helper Name Role Phone Epi French MD Primary Care Provider [phone] Encounter Details Date Type Department Care Team (Late st Contact Info) Description 02/04/2004 Outpatient Historical [facility] [place] [address] [place] [address] Cabrera Altamirano MD NO ADDRESS ON FILE BACKACHE NOS (Primary Dx) Social History Tobacco Use Types Packs/Day Years Used Date Smoking Tobacco: Never Assessed Comments Unknown Sex and Gender Information Value Date Recorded Sex Assigned at Not on file Legal Sex Female 3:09 AM ECONOMIC DEVELOPMENT SPECIALIST Gender Identity Not on file Sexual Orientation Not on file documented as of this encounter Plan of Treatment Not on file documented as of this encounter Visit Diagnoses Diagnosis Backache, unspecified- Primary documented in this encounter Care Teams Blending Tank Tender Helper Relationship Specialty Start Date End Date Epi French MD [address] [place] [phone] PCP - General Family Practice 09/29/10 documented as of this encounter
--- OUTSIDE RECORDS SUMMARY | 2024-09-06 17:35 | XMS_ITS | Encounter Summary ---
Author Organization [facility] Address [address] [place] [address] Care Team Providers Care Kettle Chipper Name Role Phone Epi French MD Primary Care Provider [phone] Encounter Details Date Type Department Care Team (Latest Contact Info) Description 01/30/2006 Outpatient Historical [facility] Pain Management Procedures [address] [place] [phone] Cabrera Altamirano MD NO ADDRESS ON FILE Postlaminectomy Syndrome, Lumbar Region (Primary Dx) Social History Tobacco Use Types Packs/Day Years Used Date Smoking Tobacco: Never Assessed Comments Unknown Sex and Gender Information Value Date Recorded Sex Assigned at Not on file Legal Sex Female 3:09 AM MOBILE HOME SET UP PERSON Gender Identity Not on file Sexual Orientation Not on file documented as of this encounter Plan of Treatment Not on file documented as of this encounter Visit Diagnoses Diagnosis Postlaminectomy syndrome, lumbar region- Primary documented in this encounter Care Teams Kettle Chipper Relationship Specialty Start Date End Date Epi French MD [address] [place] [phone] PCP - General Family Practice 09/29/10 documented as of this encounter
--- OUTSIDE RECORDS SUMMARY | 2024-09-06 17:35 | XMS_ITS | Encounter Summary ---
Author Organization [facility] Address [address] [place] [address] Care Team Providers Care Teacher Of The Sight Impaired Name Role Phone Epi French MD Primary Care Provider [phone] Encounter Details Date Type Department Care Team (Late st Contact Info) Description 03/07/[address] [facility] Pain Management Procedures [address] [place] [address] Cabrera Altamirano MD NO ADDRESS ON FILE Adjust Nerv Syst Device (Primary Dx) Social History Tobacco Use Types Packs/Day Years Used Date Smoking Tobacco: Never Assessed Comments Unknown Sex and Gender Information Value Date Recorded Sex Assigned at Not on file Legal Sex Female 3:09 AM WINE BLENDER Gender Identity Not on file Sexual Orientation Not on file documented as of this encounter Plan of Treatment Not on file documented as of this encounter Visit Diagnoses Diagnosis Fitting and adjustment of other devices related to nervous system and special senses- Primary documented in this encounter Care Teams Teacher Of The Sight Impaired Relationship Specialty Start Date End Date Epi French MD [address] [place] [phone] PCP - General Family Practice 09/29/10 documented as of this encounter
--- OUTSIDE RECORDS SUMMARY | 2024-09-06 17:35 | XMS_ITS | Patient Health Record ---
Author Organization [facility] Address [address], [place] [address] Care Team Providers Care Colored Liquid Plastic Applier Name Role Phone Regulo Kelley DO Primary Care Provider Unavail able Ness PINTO, Jesus Mora [phone] Allergies Allergen (clinical drug ingredient) Drug/Non Drug Allergy documented on EMR Reaction Allergy Type Onset Date Status sulfa hives Drug Allergy Active aspirin aspirin dizziness Drug Allergy Active Reason For Referral No [...] smoke your fir st cigarette? 6-30 min Problems Problem Type SNOMED Code ICD Code Onset Dates Problem Status W/U Status Risk Notes Problem Hypertension (53967609) Hypertension (401.9) Active confirmed Problem Osteoporosis (15486388) Osteoporosis, unspecified (733.00) Active confirmed Problem Kyphosis (983331090) Kyphosis (737.10) Active confirmed Problem Scoliosis (661714514) Scoliosis (737.43) Active confirmed Problem Low back pain (986226730) Low back pain (724.2) Active confirmed Problem Pain in thoracic spine (964568689) Thoracic pain (724.1) Active confirmed Problem Reflex sympathetic dystrophy of lower extremity (438357171) RSD, LE (337.22) Active confirmed Problem Long-term drug therapy (862808185) LONG-TERM USE MEDS NEC (V58.69) Active confirmed R/O substance abuse Problem Low back pain (724052740) Low back pain (M54.5) Active confirmed Problem High risk drug monitoring status (206747289) [facility] (current) use of opiate analgesic (Z79.891) Active confirmed Problem Hypersomnia (82772292) Hypersomnia, unspecified (G47.10) Active confirmed Problem Chronic pain (23772838) Other chronic pain (G89.29) Active confirmed Problem Reflex sympathetic dystrophy of lower extremity (375971542) Complex regional pain syndrome I of lower limb, bilateral (G90.523) Active confirmed Problem 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, 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 Problem Neuromuscular scoliosis (416900186) Neuromuscular scoliosis, 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) Active confirmed Problem Pain in thoracic spine (909325184) Pain in thoracic spine (M54.6) Active confirmed Problem Age-related osteoporosis (899441358) Age-related osteoporosis without current pathological fracture (M81.0) Active confirmed Problem Pain in lumbar spine (214853767) Vertebrogenic low back pain (M54.51) Active confirmed Plan Of Treatment No Information Insurance Providers Payer Name Payer Address Payer Phone Subscriber Number Group Number Insured Name Patient Relationship to Insured Coverage Start Date Coverage End Date S Medicare Part B Claims Department [address] [address] [place] [address] [id number] Ayah Sanchez Self - patient is the insured [place] [address] [place] [address] [phone] [id number] Ayah Sanchez Self - patient is the insured Medical (General) History Medical History History ICD Code Low back pain Mid back pain Reflex sympathetic dystrophy, lower extr emity Gastroesophageal reflux disease Osteoporosis Cervical dystonia Carotid stenosis Obesity, mild Surgical History Surgery Date(Month/Year) Hysterectomy, 1973 Placement of intrathecal pain pump, Replacement of pain pump, 06/10/98, 12/12, 10/05/10 Intrathecal pain pump / cath eter replacement by Dr. Uriarte at [facility], 06/26/17 Carotid endarterectomy at [facility] by Dr. Feliciano moran, 12/2017 Cataract surgery, 07/10/18, 07/24/18 Colonoscopy with polypectomy, 10/2018 Biopsy scalp lesion, performed by Dr. Azar Barrera, 05/2021 Hospitalization History Reason Date(Month/Year) Severe vomiting (admitted for 3 days), 0 08/2009 Heart attack and blood clots, lung, zahra surendra at [facility], 09/2022 Blood transfusion, treated at [facility], 09/22 22
--- OUTSIDE RECORDS SUMMARY | 2024-09-06 17:35 | XMS_ITS | Encounter Summary ---
Author [facility] Address [address] [place] [address] Care Team Providers Care Wheel Assembler Name Role Phone Epi French MD Primary Care Provider [phone] Encounter Details Date Type Department Care Team (Late st Contact Info) Description 03/11/2004 Outpatient Historical [facility] Pain Management Procedures [address] [place] [address] Cabrera Altamirano MD NO ADDRESS ON FILE FIT/ADJUST UNSPECIFIED DEVICE (Primary Dx) Social History Tobacco Use Types Packs/Day Years Used Date Smoking Tobacco: Never Assessed Comments Unknown Sex and Gender Information Value Date Recorded Sex Assigned at Not on file Legal Sex Female 3:09 AM REHABILITATION MANAGER Gender Identity Not on file Sexual Orientation Not on file documented as of this encounter Plan of Treatment Not on file documented as of this encounter Visit Diagnoses Diagnosis Fitting and adjustment of unspecified device- Primary documented in this encounter Care Teams Wheel Assembler Relationship Specialty Start Date End Date Epi French MD [address] [place] [id number] PCP - General Family Practice 09/29/10 documented as of this encounter
--- OUTSIDE RECORDS SUMMARY | 2024-09-06 17:35 | XMS_ITS | Encounter Summary ---
Author Organization [facility] Address [address] [place] [address] Care Team Providers Care Window Shade Cutter Name Role Phone Epi French MD Primary Care Provider [phone] Encounter Details Date Type Department Care Team (Late st Contact Info) Description 05/24/2004 Outpatient Historical [facility] [address] [place] [address] [facility] [address] [place] [id number] Ele Issa, TRIMMER LOADER [address] [place] [address] Social History Tobacco Use Types Packs/Day Years Used Date Smoking Tobacco: Never Assessed Comments Unknown Sex and Gender Information Value Date Recorded Sex Assigned at Not on file Legal Sex Female 3:09 AM CLINICAL CARE COORDINATOR Gender Identity Not on file Sexual Orientation Not on file documented as of this encounter Plan of Treatment Not on file documented as of this encounter Visit Diagnoses Not on filedocumented in this encounter Care Teams Window Shade Cutter Relationship Specialty Start Date End Date Epi French MD [address] [place] [phone] PCP - General Family Practice 09/29/10 documented as of this encounter
--- OUTSIDE RECORDS SUMMARY | 2024-09-06 17:35 | XMS_ITS | Encounter Summary ---
Author Organization [facility] Address [address] [place] [address] Care Team Providers Care Insurance Claims Examiner Name Role Phone Epi French MD Primary Care Provider [phone] Encounter Details Date Type Department Care Team (Late st Contact Info) Description 05/24/[address] [facility] Pain Management Procedures [address] 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
--- NOTE | 2024-09-06 18:09 | XRR_ITS ---
PROCEDURE INFORMATION: Exam: XR Chest Exam date and time: 09/06/2024 6:13 PM Age: 78 years old Clinical indication: Cough; Additional info: Cough, rales TECHNIQUE: Imaging protocol: Radiologic exam of the chest. Views: 1 view. COMPARISON: CR XR chest 1V portable [id number] 08/16/2024 10:23 AM FINDINGS: Lungs: Unremarkable. No consolidation. Pleural spaces: Unremarkable. No pleural effusion. No pneumothorax. Heart/Mediastinum: Unremarkable. No cardiomegaly. Bones/joints: Unremarkable. XR/XR chest 1V portable [id number] IMPRESSION: No acute findings.
[2024-09-06 19:06] LABS: Hematocrit 35.2 % (36-47); Hemoglobin 10.70 g/dL (11.27-16.99); Mean Corpuscular HGB Conc 30.4 g/dL (30-55); Mean Corpuscular Hemoglobin 27.3 pg (27-33); Mean Corpuscular Volume 89.8 fl (85-98); Nucleated Red Blood Cells % 0 %; Platelet Count 411 10^3/cmm (157-399); Red Blood Count 3.92 10^6/uL (3.85-5.65); White Blood Count 6.67 10^3/uL (3.29-11.43)
--- NOTE | 2024-09-06 19:10 | ECG_ITS ---
[facility]: 2024-[facility]06 Pat Name: Ayah Sanchez Department: Room: Gender: Female Med Admin: : 1945 Requested By: Almaz Camacho Order Number: [id number] Reading MD: Measurements Intervals [place] Rate: 53 P: 59 [place]: 176 QRS: 56 QRSD: 106 T: 84 QT: 416 QTc: 391 Interpretive Statements SINUS BRADYCARDIA Compared to ECG 08/16/2024 16:19:07 Sinus rhythm no longer present T-wave abnormality no longer present [email or web address] [id number]
[2024-09-06 19:20] LABS: Lactic Sepsis W/Reflex 1.3 mmol/L (0.5-2.2)
[2024-09-06 19:22] LABS: Troponin(5th) Baseline 44 ng/L (0-10)
[2024-09-06 19:36] LABS: Alanine Aminotransferase 7 U/L (0-33); Albumin Level 4.0 g/dL (3.5-5.2); Alkaline Phosphatase 93 U/L (35-105); Anion Gap 18.6 (5-19); Aspartate Amino Transferase 10 U/L (0-32); Blood Urea Nitrogen 34 mg/dL (8-23); Calcium 9.1 mg/dL (8.5-10.5); Carbon Dioxide 22 mmol/L (22-29); Chloride 102 mmol/L (98-107); Creatinine Clr Calc Pharmacy 15.5020; Globulin 2.2 g/dL (1.3-4.6); Glucose 94 mg/dL (65-115); Lipase 55 U/L (13-60); NT Pro B Type Natriuretic Pept 4341 pg/mL (0-450); Osmolality Calculated 293 mOsm/kg (285-295); Potassium 4.6 mmol/L (3.5-5.1); Sodium 138 mmol/L (136-145); Total Protein 6.2 g/dL (6.6-8.7)
--- NOTE | 2024-09-06 19:41 | W.ED.WEAKNES ---
HPI - Weakness General: Chief complaint: Weakness Stated complaint: BP low 70/50 Time Seen by Provider: 09/06/24 17:59 History of Present Illness: This patient is an 78 year old presenting due to weakness, fatigue and low blood pressure. She has a history of a recent admission for sepsis and also had a heart attack while she was hospitalized. She also had a heart attack a year ago with stents placed. She also says that her kidneys are not doing well due to the sepsis - so they couldn't do a stent for her heart attack because they didn't want the contrast to hurt her kidneys. She has been home from the hospital for about 2 weeks and just finished her antibiotics a few days ago. She has noted some burning with urination again as well. She had some medication changes while in the hospital - but she isn't sure of the names. She says that she was on several medicine for high blood pressure prior to the admission and isn't on any now. She has been taking her BP frequently at home because her doctor told her that he doesn't want it to go to low as that would hurt her kidneys more. Her BP has been 110 or less for the past several days and less than 80 all day today. She has a history of CHF and is on 2 liters of oxygen at home. [facility] ED PFSH: Medical History Acute kidney injury superimposed on chronic kidney disease Respiratory acidosis with metabolic acidosis Hypercapnic respiratory failure Septic shock Acute hypoxic on chronic hypercapnic respiratory failure GERARDO (acute kidney injury) Type 2 diabetes mellitus History of pulmonary embolism UTI (urinary tract infection) Iron deficiency anemia CHF (congestive heart failure) Mixed dyslipidemia NSTEMI (non-ST elevated myocardial infarction) Atrial fibrillation with slow ventricular response Moderate major depression Arthritis of both hands Coronary artery disease Leukocytosis Anemia Chest pain AVM (arteriovenous malformation) HTN (hypertension) Dark stools Pulmonary embolism COPD (chronic obstructive pulmonary disease) Hiatal hernia Diverticulosis Colon polyps Presence of intrathecal pump Bilateral carotid artery stenosis Hyperlipidemia associated with type 2 diabetes mellitus Ventricular hypertrophy Surgical History H/O: hysterectomy H/O cataract extraction Hx of appendectomy Family History Mother CAD (coronary artery disease), Onset Age: 70 Cancer Dementia Sister Diabetes Denies family history of Clotting disorder Chronic kidney disease (CKD) Suicide Anesthesia complication Bleeding disorder Lung disease Stroke Social History Smoking and tobacco/nicotine status: former use of tobacco/nicotine Quit status (tobacco/nicotine): has quit using Year quit tobacco: 2022 Former quit date comment: 1.5 ppd X 50 Alcohol intake: never Substance/Drug Use: never Female Reproductive History: Spontaneous abortions: No Physical Exam Const: COMMON NORMALS: no acute distress, patient oriented x3, no limitations and alert GENERAL APPEARANCE: cooperative and comfortable HENMT: HEAD & SCALP: normal to inspection FACE & SINUS: normal facial exam Eye: GENERAL EYE: appearance normal, both eyes and all related structures Neck/C-Spine: COMMON NORMALS: supple, no meningeal signs and no JVD Chest: COMMONS NORMALS: normal inspection of the chest Resp: EFFORT & INSPECTION: Yes able to speak in complete sentences and Yes symmetric chest movement AUSCULTATION: rales bilateral 1/[address] Cardio: COMMON NORMALS: no JVD, regular rate, regular rhythm and No murmurs present (Cardio) RATE: regular rate RHYTHM: regular rhythm GI: PALPATION: Yes Firmness to palpation present (GI) (distended) Back/Pelvis: COMMON NORMALS: thoracic and lumbar spine normal to inspection Extremity: COMMON NORMALS: normal to inspection Neuro: COMMON NORMALS: patient oriented x3, moves all extremities, no focal motor deficits and no sensory deficits noted SENSORIUM/ORIENTATION: Yes alert MENINGEAL SIGNS: Yes no meningeal signs Psych: COMMON NORMALS: mental status grossly normal, cooperative and normal affect Skin: COMMON NORMALS: no rashes or lesions noted and turgor normal GENERAL SKIN EXAM: no rashes or lesions noted and turgor normal Course Vital Signs: Vital signs: Vital Signs Temperature 97.8 F 09/06/24 17:31 Pulse Rate 60 09/06/24 21:00 Respiratory Rate 17 09/06/24 21:00 Blood Pressure 106/50 09/06/24 21:00 Pulse Oximetry 92 09/06/24 21:00 Oxygen Delivery Me thod Room Air 09/06/24 21:00 Oxygen Flow Rate 2 09/06/24 17:31 MDM - Weakness Medical Decision Making This patient was hospitalized recently for sepsis and had an ND while in hospital. She has been home for two weeks and has been feeling very weak and tired today. She has noted decreased urine output. Today renal function is significantly worse and her BP has been low. She improved with a 500 mL bolus of NS - troponin was 44 - likely not an acute issue - BNP 4000 which is high for her and she has rales on exam. She doesn't appear to have any evidence of infection at this point. Plan to admit for hydration and/or medication adjustment. Lab Data 09/06/24 18:55 09/06/24 18:55 Radiology Impressions Chest X-Ray 09/06/24 18:09 IMPRESSION: No acute findings. Laboratory Results WBC 6.67 10^3/uL (3.29-11.43) 09/06/24 18:55 RBC 3.92 10^6/uL (3.85-5.65) 09/06/24 18:55 Hgb 10.70 g/dL (11.27-16.99) L 09/06/24 18:55 Hct 35.2 % (36-47) L 09/06/24 18:55 MCV 89.8 fl (85-98) 09/06/24 18:55 MCH 27.3 pg (27-33) 09/06/24 18:55 MCHC 30.4 g/dL (30-55) 09/06/24 18:55 RDW 16.4 % (12.1-15.1) H 09/06/24 18:55 Plt Count 411 10^3/cmm (157-399) H 09/06/24 18:55 MPV 10.2 fL (7.4-10.4) 09/06/24 18:55 Neut % (Auto) 64.1 % 09/06/24 18:55 Lymph % (Auto) 22.2 % 09/06/24 18:55 [place] % (Auto) 9.6 % 09/06/24 18:55 Eos % (Auto) 2.8 % 09/06/24 18:55 Baso % (Auto) 0.7 % 09/06/24 18:55 Neut # (Auto) 4.27 10^3/uL (1.8-7.7) 09/06/24 18:55 Lymph # (Auto) 1.5 10^3/uL (0.8-4.8) 09/06/24 18:55 [place] # (Auto) 0.6 10^3/uL (0.2-0.9) 09/06/24 18:55 Eos # (Auto) 0.2 10^3/uL (0.0-0.8) 09/06/24 18:55 Baso # (Auto) 0.1 10^3/uL (0.0-0.1) 09/06/24 18:55 Nucleated RBC % (auto) 0 % 09/06/24 18:55 Nucleated RBCs # 0.0 /100WBC 09/06/24 18:55 Sodium 138 mmol/L (136-145) 09/06/24 18:55 Potassium 4.6 mmol/L (3.5-5.1) 09/06/24 18:55 Chloride 102 mmol/L (98-107) 09/06/24 18:55 Carbon Dioxide 22 mmol/L (22-29) 09/06/24 18:55 Anion Gap 18.6 (5-19) 09/06/24 18:55 BUN 34 mg/dL (8-23) H 09/06/24 18:55 Creatinine 2.7 mg/dL (0.5-0.9) H 09/06/24 18:55 GFR Calculation Not Reportable 09/06/24 18:55 Glucose 94 mg/dL (65-115) 09/06/24 18:55 Calculated Osmolality 293 mOsm/kg (285-295) 09/06/24 18:55 Lactic Acid 1.3 mmol/L (0.5-2.2) 09/06/24 18:55 Calcium 9.1 mg/dL (8.5-10.5) 09/06/24 18:55 Total Bilirubin 0.3 mg/dL (0.15-1.2) 09/06/24 18:55 AST 10 U/L (0-32) 09/06/24 18:55 ALT 7 U/L (0-33) 09/06/24 18:55 Alkaline Phosphatase 93 U/L (35-105) 09/06/24 18:55 Troponin T Baseline 44 ng/L (0-10) H 09/06/24 18:55 Troponin T 120 Minute 37.26 ng/L (0-10) H 09/06/24 21:00 Delta Troponin T -6.74 ABS# (0-10) L 09/06/24 21:00 NT-Pro-B Natriuret Pep 4341 pg/mL (0-450) H 09/06/24 18:55 Total Protein 6.2 g/dL (6.6-8.7) L 09/06/24 18:55 Albumin 4.0 g/dL (3.5-5.2) 09/06/24 18:55 Globulin 2.2 g/dL (1.3-4.6) 09/06/24 18:55 Lipase 55 U/L (13-60) 09/06/24 18:55 Urine Color Yellow (Yellow) 09/06/24 20:20 Urine Appearance Clear (CLEAR) 09/06/24 20:20 Urine pH 5.0 (5-7) 09/06/24 20:20 Ur Specific [place] 1.009 (1.005-1.030) 09/06/24 20:20 Urine Protein Negative (Negative) 09/06/24 20:20 Urine Glucose (UA) Negative (Normal) 09/06/24 20:20 Urine Ketones Negative (Negative) 09/06/24 20:20 Urine Blood Negative (Negative) 09/06/24 20:20 Urine Nitrate Negative (Negative) 09/06/24 20:20 Urine Bilirubin Negative (Negative) 09/06/24 20:20 Urine Urobilinogen 0.2 mg/dL (Negative) 09/06/24 20:20 Ur Leukocyte Esterase Trace (Negative) A 09/06/24 20:20 Urine RBC 0-2 /hpf (0-2) 09/06/24 20:20 Urine WBC 0-5 /hpf (0-5) 09/06/24 20:20 Ur Squamous Epith Cells 0-5 /hpf (0-5) 09/06/24 20:20 Calcium Oxalate Crystal 0-4 /hpf H 09/06/24 20:20 Amorphous Sediment Not Reportable 09/06/24 20:20 Urine Bacteria None seen /hpf (NONE) 09/06/24 20:20 Hyaline Casts 32.24 /lpf 09/06/24 20:20 All radiology interpretation(s) finalized by discharge Discharge Plan Discharge Patient Disposition: Admitted As Inpatient Admit Provider: Jennie Mendoza Clinical Impression: Hypotension, Chronic kidney disease, Elevated brain natriuretic peptide (BNP) level, CAD (coronary artery disease), Physical deconditioning Condition: Stable Coding Level of Care Code ED Bobbin Painter for Chg Fwd Related Data Home Medications ?Medication ?Instructions ?Recorded ?Confirmed apixaban 2.5 mg tablet (Eliquis) 2.5 mg PO BID 08/14/24 08/29/24 Previous Rx's ?Medication ?Instructions ?Recorded leg brace (Ankle Brace) #1 ea 11/02/23 albuterol sulfate 2.5 mg/3 mL 2.5 mg (3 mL) inhalation QID PRN 11/15/23 (0.083 %) solution for nebulization shortness of breath or wheezing #75 mL nitroglycerin 0.4 mg sublingual See Rx Instructions .Route 01/11/24 tablet .COMPLEX #25 tabs losartan 50 mg tablet 50 mg PO DAILY #90 tabs 04/04/24 ascorbate calcium (vitamin C) 500 500 mg PO DAILY #60 tabs 07/02/24 mg tablet fluticasone propionate 50 2 spray intranasal DAILY #16 grams 07/02/24 mcg/actuation nasal spray,suspension (Flonase Allergy Relief) methenamine hippurate 1 gram tablet 1 g PO BID #60 tabs 07/02/24 ferrous sulfate 325 mg (65 mg 325 mg PO .q48 3 months #45 tabs 07/03/24 iron) tablet (Feosol) cetirizine 10 mg tablet 10 mg PO DAILY PRN allergy symtoms 07/19/24 #90 tabs Ventolin HFA 90 mcg/actuation 2 puff inhalation Q4H PRN 08/06/24 aerosol inhaler (albuterol sulfate) shortness of breath or wheezing #18 grams amlodipine 10 mg tablet See Rx Instructions .Route 08/06/24 .COMPLEX #90 tabs clopidogrel 75 mg tablet See Rx Instructions .Route 08/06/24 .COMPLEX #90 tabs pantoprazole 40 mg tablet,delayed 40 mg PO BID #180 tabs 08/06/24 release potassium chloride 10 mEq 40 meq (4 x 10 mEq) PO DAILY #120 08/20/24 capsule,extended release caps fluconazole 150 mg tablet 150 mg PO Q3D 2 doses #2 tabs 08/29/24 furosemide 40 mg tablet 40 mg PO DAILY@0800 #30 tabs 08/29/24 isosorbide mononitrate 30 mg 30 mg PO DAILY #30 tabs 08/29/24 tablet,extended release 24 hr levothyroxine 25 mcg tablet 25 mcg PO QAM #90 tabs 08/29/24 Allergies Allergy/AdvReac Type Severity Reaction Status Date / Time adhesive tape Allergy Mild ALGY-Rash Verified 09/06/24 17:39 aspirin Allergy Unknown unknown Verified 09/06/24 17:39 Sulfa (Sulfonamide Allergy Unknown unknown Verified 09/06/24 17:39 Antibiotics)
--- NOTE | 2024-09-06 20:24 | ECG_ITS ---
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
[2024-09-06 20:36] LABS: Glucose Urine UA Negative (Normal); Nitrate Urine Negative (Negative); Specific Gravity, Urine 1.009 (1.005-1.030)
[2024-09-06 20:38] LABS: Add Urine Microscopic? YES
[2024-09-06 20:49] LABS: UA Slide Review UA Slide Review Perf
[2024-09-06 21:38] LABS: Troponin 5 2HR 37.26 ng/L (0-10); Troponin 5 2HR Delta -6.74 ABS# (0-10)
--- NOTE | 2024-09-06 23:13 | PM.HP ---
Providers/Chief Complaint Admitting Physician: Jennie Mendoza MD--patient seen and evaluated before 12 midnight Primary Care Provider: Juan Carlos Sherman MD Chief Complaint: BP low 70/50 History of Present Illness Ayah Sanchez is a 78 year old female with medical history significant for chronic renal failure and who had undergone hospitalization for sepsis with UTI and was then discharged home 2 weeks ago. After 2 weeks at home patient found herself doing okay but then started getting weaker and weaker with low blood pressure at 70/50. While at home patient was on losartan and on all other blood pressure medicine and continue to have persistent low blood pressure it was documented in the system that patient was not supposed to be on losartan of because that did not help the kidney with persistent low blood pressure and issues with elevated BNP with renal failure and a known history of COPD on the patient. Patient related that her shortness of breath with her breathing generally improved while at home but the only 1 thing is that when she tries to lay down at nighttime she gets short of breath that she had to raise the head of her bed to about 30 degrees. Her creatinine had bumped from a less than 2 to 2.7. And had BMP went up to about 4000 the chest x-ray were unremarkable lungs are clear. Patient received 500 cc of fluid the blood pressure came up from systolic of 70s to 108. Patient undoubtably is profoundly intravascularly depleted patient on top of that at home was on Lasix. Patient meets inpatient criteria patient might have a gentle hydration that will be all. Creatinine should come down to baseline creatinine with that renal consultation. Renal may be consulted if needed. Review of Systems Narrative: Generally patient is in no apparent distress system review upon 10 organ review we are found to be unremarkable except for weakness. Significant for musculoskeletal. Medications/Allergies Home Medications ?Medication ?Instructions ?Recorded ?Confirmed ?Last Taken ?Type nitroglycerin 0.4 mg sublingual See Rx Instructions .Route 01/11/24 09/06/24 Unknown Rx tablet .COMPLEX #25 tabs losartan 50 mg tablet 50 mg PO DAILY #90 tabs 04/04/24 09/06/24 08/13/24 Rx ascorbate calcium (vitamin C) 500 500 mg PO DAILY #60 tabs 07/02/24 09/06/24 08/13/24 Rx mg tablet fluticasone propionate 50 2 spray intranasal DAILY #16 grams 07/02/24 09/06/24 08/13/24 Rx mcg/actuation nasal spray,suspension (Flonase Allergy Relief) ferrous sulfate 325 mg (65 mg 325 mg PO .q48 3 months #45 tabs 07/03/24 09/06/24 08/13/24 Rx iron) tablet (Feosol) cetirizine 10 mg tablet 10 mg PO DAILY PRN allergy symtoms 07/19/24 09/06/24 08/13/24 Rx #90 tabs Ventolin HFA 90 mcg/actuation 2 puff inhalation Q4H PRN 08/06/24 09/06/24 Unknown Rx aerosol inhaler (albuterol sulfate) shortness of breath or wheezing #18 grams amlodipine 10 mg tablet See Rx Instructions .Route 08/06/24 09/06/24 08/13/24 Rx .COMPLEX #90 tabs clopidogrel 75 mg tablet See Rx Instructions .Route 08/06/24 09/06/24 08/13/24 Rx .COMPLEX #90 tabs pantoprazole 40 mg tablet,delayed 40 mg PO BID #180 tabs 08/06/24 09/06/24 08/13/24 Rx release apixaban 2.5 mg tablet (Eliquis) 2.5 mg PO BID 08/14/24 09/06/24 08/13/24 History potassium chloride 10 mEq 40 meq (4 x 10 mEq) PO DAILY #120 08/20/24 09/06/24 Unknown Rx capsule,extended release caps furosemide 40 mg tablet 40 mg PO DAILY@0800 #30 tabs 08/29/24 09/06/24 Unknown Rx isosorbide mononitrate 30 mg 30 mg PO DAILY #30 tabs 08/29/24 09/06/24 Unknown Rx tablet,extended release 24 hr levothyroxine 25 mcg tablet 25 mcg PO QAM #90 tabs 08/29/24 09/06/24 Unknown Rx Allergies Allergy/AdvReac Type Severity Reaction Status Date / Time adhesive tape Allergy Mild ALGY-Rash Verified 09/06/24 17:39 aspirin Allergy Unknown unknown Verified 09/06/24 17:39 Sulfa (Sulfonamide Allergy Unknown unknown Verified 09/06/24 17:39 Antibiotics) PFSH Acute PFSH: Medical History Acute kidney injury superimposed on chronic kidney disease Respiratory acidosis with metabolic acidosis Hypercapnic respiratory failure Septic shock Acute hypoxic on chronic hypercapnic respiratory failure GERARDO (acute kidney injury) Type 2 diabetes mellitus History of pulmonary embolism UTI (urinary tract infection) Iron deficiency anemia CHF (congestive heart failure) Mixed dyslipidemia NSTEMI (non-ST elevated myocardial infarction) Atrial fibrillation with slow ventricular response Moderate major depression Arthritis of both hands Coronary artery disease Leukocytosis Anemia Chest pain AVM (arteriovenous malformation) HTN (hypertension) Dark stools Pulmonary embolism COPD (chronic obstructive pulmonary disease) Hiatal hernia Diverticulosis Colon polyps Presence of intrathecal pump Bilateral carotid artery stenosis Hyperlipidemia associated with type 2 diabetes mellitus Ventricular hypertrophy Surgical History H/O: hysterectomy H/O cataract extraction Hx of appendectomy Family History Mother CAD (coronary artery disease), Onset Age: 70 Cancer Dementia Sister Diabetes Denies family history of Clotting disorder Chronic kidney disease (CKD) Suicide Anesthesia complication Bleeding disorder Lung disease Stroke Social History Smoking and tobacco/nicotine status: former use of tobacco/nicotine Quit status (tobacco/nicotine): has quit using Year quit tobacco: 2022 Former quit date comment: 1.5 ppd X 50 Alcohol intake: never Substance/Drug Use: never Female Reproductive History: Spontaneous abortions: No Vitals/I&O/Wt Last Vital Signs Temp 98.1 F 09/06/24 22:35 Pulse 66 09/06/24 22:35 Resp 21 H 09/06/24 22:35 BP 121/64 09/06/24 22:35 Pulse Ox 96 09/06/24 22:35 O2 Del Method Nasal Cannula 09/06/24 22:35 O2 Flow Rate 2 09/06/24 22:35 Weight last 48 hrs Weight 77.474 kg Weight 72.575 kg Physical Exam Narrative: Generally patient is in no apparent distress HEENT normocephalic/atraumatic neck neck is supple cardiovascular heart rate is regular lungs are pretty much clear abdomen soft nontender nondistended unremarkable extremities are intact no edema has good pulses neurology he has no focality lab studies lab studies reviewed and noted. Data 09/06/24 18:55 09/06/24 18:55 A&P Assessment and plan (1) Hypotension: Must optimize blood pressure to avoid further kidney deterioration Patient may need very small hydration of another 500 as it was given in the emergency room by emergency room physician and please avoid things that will circuit with much volume for this patient. May hold some Lasix for another day. Must continue to follow trend optimize. (2) CAD (coronary artery disease): Continue Plavix and other cardiac medication for care. (3) Paroxysmal nocturnal dyspnea: Patient gets this at nighttime. Be cautious not to give much of any fluid Lasix can be lowered in dose and patient should not be on losartan patient verbalized that she was taking losartan at home. And patient does have 10 mg of amlodipine as well. (4) Elevated brain natriuretic peptide (BNP) level: Patient is not in any overt heart failure chest x-ray is clean patient verbalized breathing better except for at nighttime when she gets paroxysmal nocturnal dyspnea which points towards the heart failure. BNP elevated is multifactorial creatinine had bumped patient has COPD and this will all elevate proBNP (5) Chronic kidney disease: Patient is with chronic renal failure on chronic hemodialysis will be dialyzed today Monday, September 06 nephrology knew about the patient will be following through with nephrology for dialysis. Plan GI and DVT prophylaxis in place PDMP PDMP Reviewed: Last Reviewed 09/07/24 08:18 by Jennie Mendoza MD Attestations Medical Necessity Statement*: Patient is appropriate for inpatient to optimize and stabilize kidney failure and respiratory issues prior to discharge for at least 2 midnights Coding Level of Care Code 88557 Diagnoses Hypotension I95.9 CAD (coronary artery disease) I25.10 Paroxysmal nocturnal dyspnea R06.00 Elevated brain natriuretic peptide (BNP) level R79.89 Chronic kidney disease N18.9 Time Spent (min) 60
--- NOTE | 2024-09-07 00:10 | ECG_ITS ---
[facility] Date: 2024-09-07 Pat Name: Ayah Sanchez Department: Room: 111 Gender: Female Social Media Developer: : 1945 Requested By: Almaz Camacho Order Number: [id number] Reading MD: Measurements Intervals Dexter Rate: 56 P: 64 FL: 170 QRS: 48 QRSD: 103 T: 108 QT: 423 QTc: 412 Interpretive Statements SINUS BRADYCARDIA POSSIBLE LEFT VENTRICULAR HYPERTROPHY [VOLTAGE CRITERIA PLUS LAE OR QRS WIDENING] NONSPECIFIC ST & T-WAVE ABNORMALITY Compared to ECG 09/06/2024 20:24:34 No significant changes [email or web address]
[2024-09-07 01:29] LABS: Troponin 5 6HR 39.66 ng/L (0-10); Troponin 5 6HR Delta -4.34 ng/L (0-12)
[2024-09-07 04:06] VITALS: BP 114/56; PULSE 57; RESP 17; TEMP 36.7; O2SAT 96
[2024-09-07 07:57] VITALS: BP 113/59; PULSE 89; RESP 27; TEMP 36.6; O2SAT 95
[2024-09-07 08:54] VITALS: BP 106/61; BP 112/55; BP 113/50; PULSE 59; PULSE 61; PULSE 63
--- NOTE | 2024-09-07 10:36 | PC.CHAP ---
Pastoral Care Encounter/Spiritual Assessment Type of Contact [] Declined rehabilitation liaison visit [] Patient/Family/Request visit [] Outpatient visit [] Follow-up visit [] Physician referral [] Code/Alert [x] Routine visit [] Staff referral [] Actively dying [x] Patient sleeping [] Family support [] [] Out of room [] Palliative care [] [] Receiving care in room [] Pre-surgical visit [] Trauma [] Long length of stay [] ICU visit [] Other: Relational/Emotional Strength [] Patient feels connected with others/family/visitors/staff [] Distress [] Loneliness/isolation [] Abandonment Spirituality of Patient [] Person of Edwina [] Attends Moravian of their [place] [] Believes in Prayer [] Reads Bible or Catholic materials [] There are Spiritual issues to be addressed Grinder Set Up Operator Internal Interventions [] Prayer [] Active listening [] Non-anxious presence [] Spiritual/emotional support [] Crisis/trauma care [] Spiritual counseling [] Bereavement support [] Provided bereavement packet [] Provided Bible/devotional materials [] Provided toy/stuffed animal, coloring book to patient or family member [] Provided Communion [] Anointing/[place] [] Salvation [] Completed spiritual assessment [] Other: Impact on Illness or Injury [] Angry [] Fearful [] Anxious [] Often cries [] Exhaustion [] Unable to work [] Unable to attend synagogue [] Unable to walk/stand [] Unable to read [] Unable to drive [] Unable to eat/drink [] Unable to sleep [] Unable to be with family [] Patient intubated [] Other: Summary Time spent with patient
[2024-09-07 10:43] LABS: Anion Gap 17.4 (5-19); Blood Urea Nitrogen 31 mg/dL (8-23); Calcium 9.0 mg/dL (8.5-10.5); Carbon Dioxide 23 mmol/L (22-29); Chloride 102 mmol/L (98-107); Creatinine Clr Calc Pharmacy 19.6094; Glucose 99 mg/dL (65-115); Osmolality Calculated 293 mOsm/kg (285-295); Potassium 4.4 mmol/L (3.5-5.1); Sodium 138 mmol/L (136-145)
--- NOTE | 2024-09-07 11:17 | PM.DCS ---
Discharge Providers Date of Admission: 09/06/24 21:46 Date of Discharge: September 07, 2024 Attending Provider at Admission: Jennie Mendoza MD Attending Provider at Discharge: Pedro Luis Bae MD Primary Care Provider: Juan Carlos Sherman MD Diagnoses at Discharge Discharge Diagnosis (1) Hypotension: Status: Acute (2) CAD (coronary artery disease): Status: Acute (3) Paroxysmal nocturnal dyspnea: Status: Acute (4) Elevated brain natriuretic peptide (BNP) level: Status: Acute (5) Chronic kidney disease: Status: Chronic Reason for Visit Reason for Visit: BP low 70/50 Hospital Course Hospital Course This is a 78-year-old female with a past medical history of chronic renal failure, recent hospitalization for sepsis with septic shock secondary to UTI requiring ICU level admission pressors, with CAD, atrial fibrillation, hypertension, hyperlipidemia, COPD Patient was admitted to [facility] for hypotension, GERARDO likely due to dehydration, and polypharmacy Patient was monitored as inpatient, received IV fluids, -Creatinine is down to 2.2 - Orthostats have resolved - Patient is adamant about going home - She denies any chest pain, no palpitations, no lightheaded, dizziness - She was able to ambulate without any significant symptomatology - Will discharge her with instructions to drink 1 to 2 L fluid a day, hold Lasix, potassium, Imdur until Monday - If any chest pain or palpitations go to emergency room - Hold Norvasc until she sees her primary care -Losartan has been discontinued - Monitor blood pressures twice daily, record them in a log, follow-up with primary care provider - Please hold Lasix and potassium until Monday - Please hold Imdur until Monday - Please try to follow-up with your primary care provider on Monday recheck blood pressure - Please monitor blood pressure twice daily please record them in a log follow-up with your primary care provider - Monitor for lightheadedness or dizziness if so please come back to the emergency room - If you have a fall please come back to the emergency room - I have discontinued amlodipine for now at some point you are going to need to resume these medications -Losartan discontinued - However it will be based upon recheck of your blood pressures and consultation with your primary care provider - If you have any chest pain please go to the emergency room - Please try to consume 1 to 2 L of fluid a day for the next 3 days - then can resume Lasix - Have primary care provider recheck potassium next week Physical Exam Const: COMMON NORMALS: no acute distress and patient oriented x3 Resp: COMMON NORMALS: normal respiratory effort, No retractions, No use of accessory muscles and clear to auscultation bilaterally AUSCULTATION: clear to auscultation bilaterally Cardio: COMMON NORMALS: regular rate, regular rhythm, S1 normal heart sound present and S2 normal heart sound present RATE: regular rate RHYTHM: regular rhythm HEART SOUNDS: S1 normal heart sound present and S2 normal heart sound present GI: COMMON NORMALS: Normal to inspection, nondistended, normoactive bowel sounds present and non-tender Extremity: COMMON NORMALS: no clubbing, cyanosis or edema and no pedal edema Neuro: COMMON NORMALS: patient oriented x3, CN's II-XII intact bilaterally and moves all extremities Psych: COMMON NORMALS: mental status grossly normal Discharge Data Studies Completed and Pending Completed Studies During Hospitalization Category Date Time Status XR chest 1V portable [id number] Stat Exams 09/06/24 18:09 Completed Pending at discharge Category Date Time Status Complete Blood Count w/Auto AM LABS Lab 09/07/24 04:00 Ordered Comprehensive Metabolic Panel AM LABS Lab 09/07/24 04:00 Ordered Magnesium AM LABS Lab 09/07/24 04:00 Ordered Phosphorus AM LABS Lab 09/07/24 04:00 Ordered Radiology Impressions Chest X-Ray 09/06/24 18:09 IMPRESSION: No acute findings. Laboratory Results WBC 6.67 10^3/uL (3.29-11.43) 09/06/24 18:55 RBC 3.92 10^6/uL (3.85-5.65) 09/06/24 18:55 Hgb 10.70 g/dL (11.27-16.99) L 09/06/24 18:55 Hct 35.2 % (36-47) L 09/06/24 18:55 MCV 89.8 fl (85-98) 09/06/24 18:55 MCH 27.3 pg (27-33) 09/06/24 18:55 MCHC 30.4 g/dL (30-55) 09/06/24 18:55 RDW 16.4 % (12.1-15.1) H 09/06/24 18:55 Plt Count 411 10^3/cmm (157-399) H 09/06/24 18:55 MPV 10.2 fL (7.4-10.4) 09/06/24 18:55 Neut % (Auto) 64.1 % 09/06/24 18:55 Lymph % (Auto) 22.2 % 09/06/24 18:55 Schleicher % (Auto) 9.6 % 09/06/24 18:55 Eos % (Auto) 2.8 % 09/06/24 18:55 Baso % (Auto) 0.7 % 09/06/24 18:55 Neut # (Auto) 4.27 10^3/uL (1.8-7.7) 09/06/24 18:55 Lymph # (Auto) 1.5 10^3/uL (0.8-4.8) 09/06/24 18:55 Schleicher # (Auto) 0.6 10^3/uL (0.2-0.9) 09/06/24 18:55 Eos # (Auto) 0.2 10^3/uL (0.0-0.8) 09/06/24 18:55 Baso # (Auto) 0.1 10^3/uL (0.0-0.1) 09/06/24 18:55 Nucleated RBC % (auto) 0 % 09/06/24 18:55 Nucleated RBCs # 0.0 /100WBC 09/06/24 18:55 Sodium 138 mmol/L (136-145) 09/07/24 10:15 Potassium 4.4 mmol/L (3.5-5.1) 09/07/24 10:15 Chloride 102 mmol/L (98-107) 09/07/24 10:15 Carbon Dioxide 23 mmol/L (22-29) 09/07/24 10:15 Anion Gap 17.4 (5-19) 09/07/24 10:15 BUN 31 mg/dL (8-23) H 09/07/24 10:15 Creatinine 2.2 mg/dL (0.5-0.9) H 09/07/24 10:15 GFR Calculation Not Reportable 09/07/24 10:15 Glucose 99 mg/dL (65-115) 09/07/24 10:15 Calculated Osmolality 293 mOsm/kg (285-295) 09/07/24 10:15 Lactic Acid 1.3 mmol/L (0.5-2.2) 09/06/24 18:55 Calcium 9.0 mg/dL (8.5-10.5) 09/07/24 10:15 Total Bilirubin 0.3 mg/dL (0.15-1.2) 09/06/24 18:55 AST 10 U/L (0-32) 09/06/24 18:55 ALT 7 U/L (0-33) 09/06/24 18:55 Alkaline Phosphatase 93 U/L (35-105) 09/06/24 18:55 Troponin T Baseline 44 ng/L (0-10) H 09/06/24 18:55 Troponin T 120 Minute 37.26 ng/L (0-10) H 09/06/24 21:00 Delta Troponin T -6.74 ABS# (0-10) L 09/06/24 21:00 Troponin T Hi Sens 6Hr 39.66 ng/L (0-10) H 09/07/24 00:59 Troponin T Hi Sens 6Hr Delta -4.34 ng/L (0-12) L 09/07/24 00:59 NT-Pro-B Natriuret Pep 4341 pg/mL (0-450) H 09/06/24 18:55 Total Protein 6.2 g/dL (6.6-8.7) L 09/06/24 18:55 Albumin 4.0 g/dL (3.5-5.2) 09/06/24 18:55 Globulin 2.2 g/dL (1.3-4.6) 09/06/24 18:55 Lipase 55 U/L (13-60) 09/06/24 18:55 Urine Color Yellow (Yellow) 09/06/24 20:20 Urine Appearance Clear (CLEAR) 09/06/24 20:20 Urine pH 5.0 (5-7) 09/06/24 20:20 Ur Specific [place] 1.009 (1.005-1.030) 09/06/24 20:20 Urine Protein Negative (Negative) 09/06/24 20:20 Urine Glucose (UA) Negative (Normal) 09/06/24 20:20 Urine Ketones Negative (Negative) 09/06/24 20:20 Urine Blood Negative (Negative) 09/06/24 20:20 Urine Nitrate Negative (Negative) 09/06/24 20:20 Urine Bilirubin Negative (Negative) 09/06/24 20:20 Urine Urobilinogen 0.2 mg/dL (Negative) 09/06/24 20:20 Ur Leukocyte Esterase Trace (Negative) A 09/06/24 20:20 Urine RBC 0-2 /hpf (0-2) 09/06/24 20:20 Urine WBC 0-5 /hpf (0-5) 09/06/24 20:20 Ur Squamous Epith Cells 0-5 /hpf (0-5) 09/06/24 20:20 Calcium Oxalate Crystal 0-4 /hpf H 09/06/24 20:20 Amorphous Sediment Not Reportable 09/06/24 20:20 Urine Bacteria None seen /hpf (NONE) 09/06/24 20:20 Hyaline Casts 32.24 /lpf 09/06/24 20:20 Vitals Last Vital Signs Temp 97.9 F 09/07/24 07:57 Pulse 59 L 09/07/24 08:54 Resp 27 H 09/07/24 07:57 BP 113/50 09/07/24 08:54 Pulse Ox 95 09/07/24 07:57 O2 Del Method Nasal Cannula 09/07/24 07:57 O2 Flow Rate 2 09/06/24 23:55 Discharge Plan Discharge Patient Disposition: Home Condition: Stable Prescriptions: Continued fluticasone propionate [Flonase Allergy Relief] 50 mcg/actuation spray,suspension 2 spray intranasal DAILY Qty: 16 0RF Rx Instructions: administer into each nostril ascorbate calcium (vitamin C) 500 mg tablet 500 mg PO DAILY Qty: 60 1RF ferrous sulfate [Feosol] 325 mg (65 mg iron) tablet 325 mg PO .q48 90 Days Qty: 45 1RF levothyroxine 25 mcg tablet 25 mcg PO QAM Qty: 90 0RF nitroglycerin 0.4 mg tablet, sublingual See Rx Instructions .ROUTE .COMPLEX Qty: 25 2RF Dose Instruction: DISSOLVE 1 TABLET UNDER THE TONGUE EVERY 5 MINUTES NEEDED FOR CHEST PAIN. DO NOT EXCEED A TOTAL OF 3 DOSES IN 15 MINUTES. Rx Instructions: DISSOLVE 1 TABLET UNDER THE TONGUE EVERY 5 MINUTES NEEDED FOR CHEST PAIN. DO NOT EXCEED A TOTAL OF 3 DOSES IN 15 MINUTES. cetirizine 10 mg tablet 10 mg PO DAILY PRN (Reason: allergy symtoms) Qty: 90 1RF clopidogrel 75 mg tablet See Rx Instructions .ROUTE .COMPLEX Qty: 90 3RF Dose Instruction: TAKE 1 TABLET BY MOUTH EVERY DAY Rx Instructions: TAKE 1 TABLET BY MOUTH EVERY DAY albuterol sulfate [Ventolin HFA] 90 mcg/actuation HFA aerosol inhaler 2 puff inhalation Q4H PRN (Reason: shortness of breath or wheezing) Qty: 18 5RF pantoprazole 40 mg tablet,delayed release (DR/EC) 40 mg PO BID Qty: 180 0RF Eliquis 2.5 mg tablet 2.5 mg PO BID Held furosemide 40 mg tablet 40 mg PO DAILY@0800 Qty: 30 1RF Hold Instructions: Resume on 09/10/24. isosorbide mononitrate 30 mg tablet extended release 24 hr 30 mg PO DAILY Qty: 30 1RF Hold Instructions: Resume on 09/10/24. potassium chloride 10 mEq capsule, extended release 40 meq PO DAILY Qty: 120 0RF Hold Instructions: Resume on 09/17/24. Discontinued losartan 50 mg tablet 50 mg PO DAILY Qty: 90 3RF amlodipine 10 mg tablet See Rx Instructions .ROUTE .COMPLEX Qty: 90 3RF Dose Instruction: TAKE 1 TABLET BY MOUTH EVERY DAY Rx Instructions: TAKE 1 TABLET BY MOUTH EVERY DAY Discharge Orders: Discharge Order (Routine); Ordered 09/07/24 Ordered By: Pedro Luis Bae Referrals: Juan Carlos Sherman MD [Primary Care Provider, [facility]] Discharge Diet: Cardiac Discharge Activity: Resume usual activity Patient Instructions: Opioid Safety, Patient Portal & [place] Instructions Activity Restrictions/Additional Instructions: - Please hold Lasix and potassium until Monday - Please hold Imdur until Monday - Please try to follow-up with your primary care provider on Monday recheck blood pressure - Please monitor blood pressure twice daily please record them in a log follow-up with your primary care provider - Monitor for lightheadedness or dizziness if so please come back to the emergency room - If you have a fall please come back to the emergency room - I have discontinued amlodipine for now at some point you are going to need to resume these medications -Losartan also has been discontinued - However it will be based upon recheck of your blood pressures and consultation with your primary care provider - If you have any chest pain please go to the emergency room - Please try to consume 1 to 2 L of fluid a day for the next 3 days - then can resume Lasix - Have primary care provider recheck potassium next week Discharge Attestations Time Spent in Discharge Care*: greater than 30 min Quality Metrics Clinical Quality Measures [ No reported AMI, CVA or VTE this stay] Coding Level of Care Code 59237 Total time (in minutes) for Discharge: 45 Diagnoses Hypotension I95.9 CAD (coronary artery disease) I25.10 Paroxysmal nocturnal dyspnea R06.00 Elevated brain natriuretic peptide (BNP) level R79.89 Chronic kidney disease N18.9
[2024-09-07 12:00] VITALS: BP 123/61; PULSE 60; RESP 20; TEMP 36.7; O2SAT 96
[2024-09-07 12:30] VITALS: BP 122/53; BP 123/58; BP 132/54; PULSE 57; PULSE 63; PULSE 66
[2024-09-07 14:12] VITALS: BP 122/53; PULSE 62; O2SAT 97
== END 2024-09-07 14:52 | disposition home or self-care (01) | DRG 683 ==
LOC: ER 21:29 → CSU 21:46
PROVIDERS: Admitting Provider Internal Medicine; Emergency Provider Emergency Medicine; PCP Family Medicine; Visit Provider Family Medicine
DX: N17.9 Acute kidney failure, unspecified (principal); I13.0 Hypertensive heart and chronic kidney disease with heart failure and stage 1 through stage 4 chronic kidney disease, or unspecified chronic kidney disease; J96.12 Chronic respiratory failure with hypercapnia; J96.11 Chronic respiratory failure with hypoxia; I95.2 Hypotension due to drugs; T50.915A Adverse effect of multiple unspecified drugs, medicaments and biological substances, initial encounter; I25.10 Atherosclerotic heart disease of native coronary artery without angina pectoris; E11.22 Type 2 diabetes mellitus with diabetic chronic kidney disease; N18.9 Chronic kidney disease, unspecified; Z87.440 Personal history of urinary (tract) infections; I48.91 Unspecified atrial fibrillation; J44.9 Chronic obstructive pulmonary disease, unspecified; E86.0 Dehydration; Z79.899 Other long term (current) drug therapy; Z79.02 Long term (current) use of antithrombotics/antiplatelets; Z79.01 Long term (current) use of anticoagulants; I25.2 Old myocardial infarction; Z99.81 Dependence on supplemental oxygen; D63.1 Anemia in chronic kidney disease; F32.9 Major depressive disorder, single episode, unspecified; E78.2 Mixed hyperlipidemia; Z86.711 Personal history of pulmonary embolism
CPT/HCPCS: 36415; 71045; 80048; 80053; 81001; 83605; 83690; 83880; 84484; 85025; 93005; 93010; 96360; 99285; J7040; J7050; J9999

== ENCOUNTER → 2024-09-10 10:12 | Outpatient (BNVA) | payer MEDICARE, MEDICAID, SELFPAY | PROVIDERS: PCP Family Medicine; Visit Provider Family Medicine | DX: N17.9 Acute kidney failure, unspecified (principal) | CPT/HCPCS: 80053 ==

== ENCOUNTER 2024-09-13 09:02 | Outpatient (RCR) | payer MEDICARE, MEDICAID, SELFPAY | END 2024-10-03 23:59 | disposition home or self-care (01) | LOC: CR 09:02 | PROVIDERS: PCP Family Medicine; Referring Provider Internal Medicine; Visit Provider Internal Medicine | DX: Z95.5 Presence of coronary angioplasty implant and graft (principal) | CPT/HCPCS: 93798 ==

== ENCOUNTER → 2024-10-02 13:18 | Outpatient (BNVA) | payer MEDICARE, MEDICAID, SELFPAY | PROVIDERS: PCP Family Medicine; Visit Provider Internal Medicine | DX: I25.10 Atherosclerotic heart disease of native coronary artery without angina pectoris (principal); I65.23 Occlusion and stenosis of bilateral carotid arteries; I10 Essential (primary) hypertension; D50.9 Iron deficiency anemia, unspecified; J44.9 Chronic obstructive pulmonary disease, unspecified; E78.2 Mixed hyperlipidemia; Z79.01 Long term (current) use of anticoagulants; Z87.891 Personal history of nicotine dependence; Z86.711 Personal history of pulmonary embolism; I25.2 Old myocardial infarction | CPT/HCPCS: 99214 ==

== ENCOUNTER 2024-10-04 12:46 | Outpatient (RCR) | payer MEDICARE, MEDICAID, SELFPAY | END 2024-11-03 23:59 | disposition home or self-care (01) | LOC: CR 12:46 | PROVIDERS: PCP Family Medicine; Referring Provider Internal Medicine; Visit Provider Internal Medicine | DX: Z95.5 Presence of coronary angioplasty implant and graft (principal) | CPT/HCPCS: 93798 ==

== ENCOUNTER → 2024-10-16 09:42 | Outpatient (BNVA) | payer MEDICARE, MEDICAID, SELFPAY | PROVIDERS: PCP Family Medicine; Visit Provider Internal Medicine | DX: J44.9 Chronic obstructive pulmonary disease, unspecified (principal); R91.1 Solitary pulmonary nodule; J96.11 Chronic respiratory failure with hypoxia; I27.20 Pulmonary hypertension, unspecified | CPT/HCPCS: 99204 ==

== ENCOUNTER → 2024-11-12 14:55 | Outpatient (BNVA) | payer MEDICARE, MEDICAID, SELFPAY | PROVIDERS: PCP Family Medicine; Visit Provider Nurse Practitioner Family | DX: L30.4 Erythema intertrigo (principal); L85.3 Xerosis cutis; L98.8 Other specified disorders of the skin and subcutaneous tissue; L81.5 Leukoderma, not elsewhere classified; L82.1 Other seborrheic keratosis; Z08 Encounter for follow-up examination after completed treatment for malignant neoplasm; Z85.828 Personal history of other malignant neoplasm of skin | CPT/HCPCS: 99214 ==

== ENCOUNTER 2024-11-22 10:03 | Outpatient (CLI) | payer MEDICARE, MEDICAID, SELFPAY ==
[2024-11-22 10:21] VITALS: O2SAT 92; O2SAT 93
[2024-11-22 10:42] VITALS: PULSE 56; RESP 18; O2SAT 96
== END 2024-11-22 10:04 | disposition home or self-care (01) ==
LOC: RT 10:06
PROVIDERS: PCP Family Medicine; Visit Provider Internal Medicine
DX: J43.2 Centrilobular emphysema (principal); R94.2 Abnormal results of pulmonary function studies
CPT/HCPCS: 94060; 94618; 94726; 94729; 94760; J7613

== ENCOUNTER → 2024-11-25 12:50 | Outpatient (BNVA) | payer MEDICARE, MEDICAID, SELFPAY | PROVIDERS: PCP Family Medicine; Visit Provider Nurse Practitioner | DX: R39.9 Unspecified symptoms and signs involving the genitourinary system (principal); N39.0 Urinary tract infection, site not specified | CPT/HCPCS: 81000; 87086 ==

== ENCOUNTER 2024-12-20 09:12 | Outpatient (CLI) | payer MEDICARE, MEDICAID, SELFPAY ==
--- NOTE | 2024-12-20 09:00 | PETR_ITS ---
PROCEDURE INFORMATION: Exam: PET/CT Skull Base to Mid-thigh Exam date and time: 12/20/2024 10:23 AM Age: 78 years old Clinical indication: Abnormal findings; Lung nodule; Prior surgery; Surgery date: 6+ months; Surgery type: Insulin pump, appy, hyst LABS AND CLINICAL REPORTS: Glucose: 101 mg/dl Treatment strategy for malignancy (PET staging): Initial Staging (PI) TECHNIQUE: Imaging protocol: Following at least four-hour fasting and following the injection of radiopharmaceutical, low dose CT images were obtained. Then, PET images were obtained. Attenuation corrected images were constructed using the CT scan. Fused images of PET and CT were reviewed. The standardized uptake values (SUV) reported below are maximum values within a region of interest, expressed in gm/ml. Exam includes orbital meatal line to mid-thigh. SUV normalization method: BodyWeight Radiopharmaceutical: 10.12 mCi F-18 FDG (Fluorodeoxyglucose), IV. Time of imaging post radiopharmaceutical administration: 46 minutes Injection site: right ac COMPARISON: CT chest abdpel w/*[id number] 08/14/2024 4:40 PM, CTA chest 09/11/2022 CT head 08/19/2009 FINDINGS: Brain: Focal uptake in the pituitary fossa is identified, SUV max 18.7 on series 301, image 13. No well-defined mass is identified in this region on the CT images. Pharynx: No abnormal uptake. Larynx: No abnormal uptake. Thyroid: Diffuse uptake in the thyroid gland is noted, SUV max 5.0 on image 63. No definite thyroid nodules are identified on the CT images. Lungs, pleura and trachea: A similar in size pleural-based solid posterior right lower lobe 1.5 x 1.0 cm pulmonary nodule is radiotracer avid, SUV max 12.[address] series 202, image 108. Elevated uptake in a similar in size partially calcified medial left lower lobe nodule measuring 2.3 x [address] image 107 is noted, SUV max 6.2. The right lower lobe nodule has increased in size compared with 09/11/2022, where it was significantly less conspicuous. The left lower lobe nodule has been similar in size since at least 09/11/2022. Heart: Normal physiologic uptake. Mediastinal space: No abnormal uptake. Liver: No abnormal uptake. Calcified granulomas in the liver are identified. Gallbladder and biliary ducts: No abnormal uptake. Pancreas: No abnormal uptake. Spleen: No abnormal uptake. Calcified granulomas in the spleen are present. Adrenal glands: No abnormal uptake. Kidneys and ureters: Normal physiologic uptake. Non radiotracer avid low-density structures in the left kidney are likely related to benign cysts. Stomach and bowel: No abnormal uptake. Colonic diverticula are present. Reproductive: The uterus is not identified, likely surgically absent. No abnormal uptake. Vasculature: No abnormal uptake. There are multifocal regions of atherosclerotic calcification. Mild prominence of the caliber of the pulmonary arteries is identified. Lymph nodes: No abnormal uptake. No lymphadenopathy in the head, neck, chest, abdomen, pelvis, and extremities. Benign-appearing calcified mediastinal and right hilar lymph nodes are identified. Skeleton: No abnormal uptake in the visualized axial and appendicular skeleton. Degenerative changes in the spine are present. Moderate thoracic spine kyphosis. Vertically oriented striations in several thoracic and lumbar vertebral bodies, for example at T9/series 3, image 202 are identified without elevated uptake, consistent with the presence of benign hemangiomas. Soft tissues: No abnormal uptake in the visualized head, neck, chest, abdomen, pelvis, and extremities. METRICS: Mediastinal blood pool: SUV max 3.2, SUV mean 2.7 Liver uptake: SUV max 3.4, SUV mean 3.0 PET/PET skull to thigh INIT [id number] IMPRESSION: 1. Elevated uptake is identified within bilateral lower lobe pulmonary nodules highly concerning for possible malignancy, particularly within the right lower lobe nodule, which has increased in size compared with 09/11/2022. 2. Elevated uptake is identified within the pituitary fossa, greater than expected for physiologic uptake. This appearance may inflammatory or malignant in etiology. Consider dedicated brain MRI with and without contrast with pituitary protocol for further evaluation. 3. Elevated thyroid uptake is identified diffusely, favoring a benign inflammatory etiology/thyroiditis rather than malignancy. Correlation with clinical findings is recommended. 4. Additional nonurgent findings as detailed above.
== END 2024-12-20 09:13 | disposition home or self-care (01) ==
PROVIDERS: PCP Family Medicine; Visit Provider Internal Medicine
DX: R91.1 Solitary pulmonary nodule (principal); R91.8 Other nonspecific abnormal finding of lung field; K75.3 Granulomatous hepatitis, not elsewhere classified; K57.90 Diverticulosis of intestine, part unspecified, without perforation or abscess without bleeding; I70.0 Atherosclerosis of aorta; M40.204 Unspecified kyphosis, thoracic region; R93.7 Abnormal findings on diagnostic imaging of other parts of musculoskeletal system; D18.09 Hemangioma of other sites; Z96.41 Presence of insulin pump (external) (internal); Z90.710 Acquired absence of both cervix and uterus
CPT/HCPCS: 78815; A9552

== ENCOUNTER → 2024-12-23 13:32 | Outpatient (BNVA) | payer MEDICARE, MEDICAID, SELFPAY | PROVIDERS: PCP Family Medicine; Visit Provider Internal Medicine | DX: J44.9 Chronic obstructive pulmonary disease, unspecified (principal); J96.11 Chronic respiratory failure with hypoxia; Z99.81 Dependence on supplemental oxygen; R41.0 Disorientation, unspecified; R91.1 Solitary pulmonary nodule; R91.8 Other nonspecific abnormal finding of lung field; Z87.891 Personal history of nicotine dependence | CPT/HCPCS: 99214; Q3014 ==

== ENCOUNTER → 2025-01-01 13:45 | Outpatient (BNVA) | payer MEDICARE, MEDICAID, SELFPAY | PROVIDERS: PCP Family Medicine; Visit Provider Family Medicine | DX: D64.9 Anemia, unspecified (principal); E03.9 Hypothyroidism, unspecified; R53.82 Chronic fatigue, unspecified; N39.0 Urinary tract infection, site not specified | CPT/HCPCS: 81000; 82728; 83550; 84439; 84443; 84480; 85025 ==

== ENCOUNTER 2025-01-03 07:37 | Emergency (ER) | payer MEDICARE, MEDICAID, SELFPAY ==
--- OUTSIDE RECORDS SUMMARY | 2025-01-03 07:44 | XMS_ITS | Encounter Summary ---
Author Organization [facility] Address [address] [place] [address] Care Team Providers Care Supervisor Laundry Name Role Phone Epi French MD Primary Care Provider [phone] Encounter Details Date Type Department Care Team (Latest Contact Info) Description 06/17/2002 Outpatient Historical [facility] Multidisciplinary Chronic Pain [address] [place] [phone] Solomon Puga MD NO ADDRESS ON FILE FIT/ADJUST NERV/SENS SYSTEM DEVICE (Primary Dx) Social History Tobacco Use Types Packs/Day Years Used Date Smoking Tobacco: Never Assessed Comments Unknown Sex and Gender Information Value Date Recorded Sex Assigned at Not on file 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
--- OUTSIDE RECORDS SUMMARY | 2025-01-03 07:44 | XMS_ITS | Encounter Summary ---
Author Organization [facility] Address [address] [place] [address] Care Team Providers Care Coil Repair Technician Name Role Phone Epi French MD Primary Care Provider [phone] Encounter Details Date Type Department Care Team (Latest Contact Info) Description 09/28/1998 Outpatient Historical [facility] Jay Perales NO ADDRESS ON FILE Cardiac dysrhythmia, unspecified (Primary Dx); Dysphagia; Esophageal reflux Social History Tobacco Use Types Packs/Day Years Used Date Smoking Tobacco: Never Assessed Comments Unknown Sex and Gender Information Value Date Recorded Sex Assigned at Not on file 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
--- OUTSIDE RECORDS SUMMARY | 2025-01-03 07:44 | XMS_ITS | Encounter Summary ---
Author Organization 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
--- OUTSIDE RECORDS SUMMARY | 2025-01-03 07:44 | XMS_ITS | Encounter Summary ---
Author Organization [facility] Address [address] [place] [address] Care Team Providers Care Malthouse Laborer Name Role Phone Epi French MD Primary Care Provider [phone] Encounter Details Date Type Department Care Team (Late st Contact Info) Description 04/09/2002 Outpatient Historical [facility] [address] [place] [phone] Social History Tobacco Use Types Packs/Day Years Used Date Smoking Tobacco: Never Assessed Comments Unknown Sex and Gender Information Value Date Recorded Sex Assigned at Not on file 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
--- OUTSIDE RECORDS SUMMARY | 2025-01-03 07:44 | XMS_ITS | Encounter Summary ---
Author Organization [facility] Address [address] [place] [address] Care Team Providers Care Tool Designer Name Role Phone Epi French MD Primary Care Provider [phone] Encounter Details Date Type Department Care Team (Latest Contact Info) Description 07/05/2002 Outpatient Historical [facility] Multidisciplinary Chronic Pain [address] [place] [phone] Cabrera Altamirano MD NO ADDRESS ON FILE FIT/ADJUST NERV/SENS SYSTEM DEVICE (Primary Dx) Social History Tobacco Use Types Packs/Day Years Used Date Smoking Tobacco: Never Assessed Comments Unknown Sex and Gender Information Value Date Recorded Sex Assigned at Not on file 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
--- OUTSIDE RECORDS SUMMARY | 2025-01-03 07:44 | XMS_ITS | Encounter Summary ---
Author Organization [facility] Address [address] [place] [address] Care Team Providers Care Car Filler Name Role Phone Epi French MD Primary Care Provider [phone] Encounter Details Date Type Department Care Team (Latest Contact Info) Description 04/09/2002 Outpatient Historical [facility] Multidisciplinary Chronic Pain [address] [place] [phone] Cabrera Altamirano MD NO ADDRESS ON FILE REFLEX SYMPATH DYSTRPHY LOWER LIMB (Primary Dx) Social History Tobacco Use Types Packs/Day Years Used Date Smoking Tobacco: Never Assessed Comments Unknown Sex and Gender Information Value Date Recorded Sex Assigned at Not on file 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
--- OUTSIDE RECORDS SUMMARY | 2025-01-03 07:44 | XMS_ITS | Encounter Summary ---
Author Organization [facility] Address [address] [place] [address] Care Team Providers Care Bell Spinner Name Role Phone Epi French MD Primary Care Provider [phone] Encounter Details Date Type Department Care Team (Latest Contact Info) Description 04/26/2002 Outpatient Historical [facility] Multidisciplinary Chronic Pain [address] [place] [phone] Cabrera Altamirano MD NO ADDRESS ON FILE FIT/ADJUST NERV/SENS SYSTEM DEVICE (Primary Dx) Social History Tobacco Use Types Packs/Day Years Used Date Smoking Tobacco: Never Assessed Comments Unknown Sex and Gender Information Value Date Recorded Sex Assigned at Not on file 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
--- OUTSIDE RECORDS SUMMARY | 2025-01-03 07:44 | XMS_ITS | Encounter Summary ---
Author Organization [facility] Address [address] [place] [address] Care Team Providers Care Mailhouse Operator Name Role Phone Epi French MD Primary Care Provider [phone] Encounter Details Date Type Department Care Team (Latest Contact Info) Description 05/13/2002 Outpatient Historical [facility] Multidisciplinary Chronic Pain [address] [place] [phone] Solomon Puga MD NO ADDRESS ON FILE FIT/ADJUST NERV/SENS SYSTEM DEVICE (Primary Dx) Social History Tobacco Use Types Packs/Day Years Used Date Smoking Tobacco: Never Assessed Comments Unknown Sex and Gender Information Value Date Recorded Sex Assigned at Not on file Legal Sex Female 3:09 AM REHABILITATION MEDICINE PHYSICIAN Gender Identity Not on file Sexual Orientation Not on file documented as of this encounter Plan of Treatment Not on file documented as of this encounter Visit Diagnoses Diagnosis Fitting and adjustment of other devices related to nervous system and special senses- Primary documented in this encounter Care Teams Mailhouse Operator Relationship Specialty Start Date End Date Epi French MD [address] [place] [phone] PCP - General Family Practice 09/29/10 documented as of this encounter
--- OUTSIDE RECORDS SUMMARY | 2025-01-03 07:44 | XMS_ITS | Encounter Summary ---
Author Organization [facility] Address [address] [place] [address] Care Team Providers Care School Social Worker Name Role Phone Epi French MD Primary Care Provider Encounter Details Date Type Department Care Team (Late st Contact Info) Description 06/17/2002 Outpatient Historical [facility] [address] [place] [phone] Social History Tobacco Use Types Packs/Day Years Used Date Smoking Tobacco: Never Assessed Comments Unknown Sex and Gender Information Value Date Recorded Sex Assigned at Not on file Legal Sex Female 3:09 AM INSIDE SALES COORDINATOR Gender Identity Not on file Sexual Orientation Not on file documented as of this encounter Plan of Treatment Not on file documented as of this encounter Visit Diagnoses Not on filedocumented in this encounter Care Teams School Social Worker Relationship Specialty Start Date End Date Epi French MD [address] [place] [phone] PCP - General Family Practice 09/29/10 documented as of this encounter
--- OUTSIDE RECORDS SUMMARY | 2025-01-03 07:44 | XMS_ITS | Encounter Summary ---
Author Organization [facility] Address [address] [place] [address] Care Team Providers Care Svp Chief Marketing Officer Name Role Phone Epi French MD Primary Care Provider [phone] Encounter Details Date Type Department Care Team (Late st Contact Info) Description 05/13/2002 Outpatient Historical [facility] [address] [place] [phone] Social History Tobacco Use Types Packs/Day Years Used Date Smoking Tobacco: Never Assessed Comments Unknown Sex and Gender Information Value Date Recorded Sex Assigned at Not on file Legal Sex Female 3:09 AM PASTRY ASSISTANT Gender Identity Not on file Sexual Orientation Not on file documented as of this encounter Plan of Treatment Not on file documented as of this encounter Visit Diagnoses Not on filedocumented in this encounter Care Teams Svp Chief Marketing Officer Relationship Specialty Start Date End Date Epi French MD [address] [place] [phone] PCP - General Family Practice 09/29/10 documented as of this encounter
--- OUTSIDE RECORDS SUMMARY | 2025-01-03 07:44 | XMS_ITS | Encounter Summary ---
Author Organization [facility] Address [address] [place] [address] Care Team Providers Care Signal Technician Name Role Phone Epi French MD Primary Care Provider [phone] Encounter Details Date Type Department Care Team (Latest Contact Info) Description 12/11/1998 Outpatient Historical [facility] Jay Perales NO ADDRESS ON FILE Ingrowing nail (Primary Dx); Onychia of toe Social History Tobacco Use Types Packs/Day Years Used Date Smoking Tobacco: Never Assessed Comments Unknown Sex and Gender Information Value Date Recorded Sex Assigned at Not on file Legal Sex Female 3:09 AM FINISHING MACHINE OPERATOR AUTOMATIC Gender Identity Not on file Sexual Orientation Not on file documented as of this encounter Plan of Treatment Not on file documented as of this encounter Visit Diagnoses Diagnosis Ingrowing nail- Primary Onychia of toe Onychia and paronychia of toe documented in this encounter Care Teams Signal Technician Relationship Specialty Start Date End Date Epi French MD [address] [place] [address] PCP - General Family Practice 09/29/10 documented as of this encounter
--- OUTSIDE RECORDS SUMMARY | 2025-01-03 07:44 | XMS_ITS | Encounter Summary ---
Author Organization [facility] Address [address] [place] [address] Care Team Providers Care Coiled Tubing Supervisor Name Role Phone Epi French MD Primary Care Provider Encounter Details Date Type Department Care Team (Latest Contact Info) Description 05/30/2002 Outpatient Historical [facility] Multidisciplinary Chronic Pain [address] [place] [phone] Solomon Puga MD NO ADDRESS ON FILE FIT/ADJUST NERV/SENS SYSTEM DEVICE (Primary Dx) Social History Tobacco Use Types Packs/Day Years Used Date Smoking Tobacco: Never Assessed Comments Unknown Sex and Gender Information Value Date Recorded Sex Assigned at Not on file Legal Sex Female 3:09 AM DATA OFFICER Gender Identity Not on file Sexual Orientation Not on file documented as of this encounter Plan of Treatment Not on file documented as of this encounter Visit Diagnoses Diagnosis Fitting and adjustment of other devices related to nervous system and special senses- Primary documented in this encounter Care Teams Coiled Tubing Supervisor Relationship Specialty Start Date End Date Epi French MD [address] [place] [phone] PCP - General Family Practice 09/29/10 documented as of this encounter
--- OUTSIDE RECORDS SUMMARY | 2025-01-03 07:44 | XMS_ITS | Encounter Summary ---
Author Organization [facility] Address [address] [place] [address] Care Team Providers Care Meter Reader Chief Name Role Phone Epi French MD Primary Care Provider [phone] Encounter Details Date Type Department Care Team (Latest Contact Info) Description 11/13/1997 Outpatient Historical [facility] Endocrin[facility] [address] [place] [address] Christina Mendoza MD [address], [place] [id number] Kaitlyn's syndrome (Primary Dx) Social History Tobacco Use Types Packs/Day Years Used Date Smoking Tobacco: Never Assessed Comments Unknown Sex and Gender Information Value Date Recorded Sex Assigned at Not on file Legal Sex Female 3:09 AM ACCOUNT MANAGEMENT SPECIALIST Gender Identity Not on file Sexual Orientation Not on file documented as of this encounter Plan of Treatment Not on file documented as of this encounter Visit Diagnoses 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
--- OUTSIDE RECORDS SUMMARY | 2025-01-03 07:44 | XMS_ITS | Encounter Summary ---
Author Organization [facility] Address [address] Attn: [place] [address] Care Team Providers Care Strategic Consultant Name Role Phone Epi French MD Primary Care Provider [phone] Encounter Details Date Type Department Care Team (Late st Contact Info) Description 02/11/1999 Outpatient Historical Cabrera Altamirano MD NO ADDRESS ON FILE Social History Tobacco Use Types Packs/Day Years Used Date Smoking Tobacco: Never Assessed Comments Unknown Sex and Gender Information Value Date Recorded Sex Assigned at Not on file Legal Sex Female 3:09 AM CARD LACER Gender Identity Not on file Sexual Orientation Not on file documented as of this encounter Plan of Treatment Not on file documented as of this encounter Visit Diagnoses Not on filedocumented in this encounter Care Teams Strategic Consultant Relationship Specialty Start Date End Date Epi French MD [address] [place] [phone] PCP - General Family Practice 09/29/10 documented as of this encounter
--- OUTSIDE RECORDS SUMMARY | 2025-01-03 07:44 | XMS_ITS | Encounter Summary ---
Author Organization [facility] Address [address] [place] [address] Care Team Providers Care Building Construction Foreman Name Role Phone Epi French MD Primary Care Provider [phone] Encounter Details Date Type Department Care Team (Late st Contact Info) Description 04/26/2002 Outpatient Historical [facility] [address] [place] [address] Social History Tobacco Use Types Packs/Day Years Used Date Smoking Tobacco: Never Assessed Comments Unknown Sex and Gender Information Value Date Recorded Sex Assigned at Not on file Legal Sex Female 3:09 AM CREDIT MANAGER Gender Identity Not on file Sexual Orientation Not on file documented as of this encounter Plan of Treatment Not on file documented as of this encounter Visit Diagnoses Not on filedocumented in this encounter Care Teams Building Construction Foreman Relationship Specialty Start Date End Date Epi French MD [address] [place] [phone] PCP - General Family Practice 09/29/10 documented as of this encounter
--- OUTSIDE RECORDS SUMMARY | 2025-01-03 07:45 | XMS_ITS | Encounter Summary ---
Author Organization [facility] Address [address] [place] [address] Care Team Providers Care Glove Pairer Name Role Phone Epi French MD Primary Care Provider [phone] Encounter Details Date Type Department Care Team (Latest Contact Info) Description 04/03/2000 Outpatient Historical [facility] Jay Perales NO ADDRESS ON FILE [...] on file Legal Sex Female 3:09 AM REALTIME REPORTER Gender Identity Not on file Sexual Orientation Not on file documented as of this encounter Plan of Treatment Not on file documented as of this encounter Visit Diagnoses Diagnosis Contact dermatitis and other eczema, due to unspecified cause- Primary Elevated blood pressure reading without diagnosis of hypertension Other dyspnea and respiratory abnormality Dysphagia documented in this encounter Care Teams Glove Pairer Relationship Specialty Start Date End Date Epi French MD [address] [place] [phone] PCP - General Family Practice 09/29/10 documented as of this encounter
--- OUTSIDE RECORDS SUMMARY | 2025-01-03 07:45 | XMS_ITS | Clinical Summary ---
Author Organization [employer] [facility] Address [address] [facility] Attn: [place] [address] Care Team Providers Care Circuit Walker Name Role Phone Epi French MD Primary Care Provider [phone] Allergies Active Allergy Reactions Criticality Noted Date [...] on file Legal Sex Female 3:26 PM DRIER OPERATOR HELPER Gender Identity Not on file Sexual [...] 12/18/2001, 2000 Medical Devices Implanted Type Area Make Up Operator Device Identifier Shelf Expiration Date Model / Serial / Lot Log [id number] - Pain Management Implant Tray - 1 - Pump Synchromed Ii 40ml 8637-40 Implanted:Qty: 1 on 10/05/2010 Catheter Right: Abdomen [employer]- NEUROLOGIC TECH 10/05/2017 8637-40 / [id number] / Intrathecal Catheter Revision Kit Implanted:Qty: 1 on 10/05/2010 Other Back [employer]- NEUROLOGIC TECH [id number] / / [id number] Description:Intrathecal Cath eter Pump Segment Revision Kit #[id number] Medtronic Pump Patient Auricular Acupuncturist Implanted:Qty: 1 on 10/05/2010 Other [employer]- NEUROLOGIC TECH 8835 / / Description:Pain Pump Patien t Auricular Acupuncturist Explanted Type Area Make Up Operator Device Identifier Shelf Expiration Date Model / Serial / Lot Pain Pump Explanted:Qty: 1 on 10/05/2010 Other Right: Abdomen [employer] [id number] / [id number] / Description:pain pump, impla nted 12/12/2001, end of life, discarded per protocol Care Teams Circuit Walker Relationship Specialty Start Date End Date Epi French MD [address] [place] [phone] PCP - General Family Practice 09/29/10
--- OUTSIDE RECORDS SUMMARY | 2025-01-03 07:45 | XMS_ITS | Encounter Summary ---
Author Organization [facility] Address [address] [place] [address] Care Team Providers Care Terrapin Fisher Name Role Phone Epi French MD Primary Care Provider [phone] Encounter Details Date Type Department Care Team (Latest Contact Info) Description 09/10/2002 Outpatient Historical [facility] Multidisciplinary Chronic Pain [address] [place] [phone] Cabrera Altamirano MD NO ADDRESS ON FILE FIT/ADJUST NERV/SENS SYSTEM DEVICE (Primary Dx) Social History Tobacco Use Types Packs/Day Years Used Date Smoking Tobacco: Never Assessed Comments Unknown Sex and Gender Information Value Date Recorded Sex Assigned at Not on file Legal Sex Female 3:09 AM SCRAP PILER Gender Identity Not on file Sexual Orientation Not on file documented as of this encounter Plan of Treatment Not on file documented as of this encounter Visit Diagnoses Diagnosis Fitting and adjustment of other devices related to nervous system and special senses- Primary documented in this encounter Care Teams Terrapin Fisher Relationship Specialty Start Date End Date Epi French MD [address] [place] [phone] PCP - General Family Practice 09/29/10 documented as of this encounter
--- OUTSIDE RECORDS SUMMARY | 2025-01-03 07:45 | XMS_ITS | Encounter Summary ---
Author Organization [facility] Address [address] [place] [address] Care Team Providers Care Chief Station Engineer Name Role Phone Epi French MD Primary Care Provider [phone] Encounter Details Date Type Department Care Team (Latest Contact Info) Description 10/15/2002 Outpatient Historical [facility] Multidisciplinary Chronic Pain [address] [place] [phone] Cabrera Altamirano MD NO ADDRESS ON FILE FIT/ADJUST NERV/SENS SYSTEM DEVICE (Primary Dx) Social History Tobacco Use Types Packs/Day Years Used Date Smoking Tobacco: Never Assessed Comments Unknown Sex and Gender Information Value Date Recorded Sex Assigned at Not on file Legal Sex Female 3:09 AM PLAN CONSULTANT Gender Identity Not on file Sexual Orientation Not on file documented as of this encounter Plan of Treatment Not on file documented as of this encounter Visit Diagnoses Diagnosis Fitting and adjustment of other devices related to nervous system and special senses- Primary documented in this encounter Care Teams Chief Station Engineer Relationship Specialty Start Date End Date Epi French MD [address] [place] [phone] PCP - General Family Practice 09/29/10 documented as of this encounter
--- OUTSIDE RECORDS SUMMARY | 2025-01-03 07:45 | XMS_ITS | Encounter Summary ---
Author Organization [facility] Address [address] [place] [address] Care Team Providers Care Senior Benefits Manager Name Role Phone Epi French MD Primary Care Provider [phone] Encounter Details Date Type Department Care Team (Latest Contact Info) Description 06/30/[address] Outpatient [address] [facility] Pain Management- [place] [address] 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); Pain in Thoracic Spine Social History Tobacco Use Types Packs/Day Years Used Date Smoking Tobacco: Never Assessed Comments Unknown Sex and Gender Information Value Date Recorded Sex Assigned at Not on file Legal Sex Female 3:09 AM APPLIANCE PARTS COUNTER CLERK Gender Identity Not on file Sexual Orientation Not on file documented as of this encounter Plan of Treatment Not on file documented as of this encounter Visit Diagnoses Diagnosis Reflex sympathetic dystrophy of the lower limb- Primary Pain in thoracic spine documented in this encounter Care Teams Senior Benefits Manager Relationship Specialty Start Date End Date Epi French MD [address] [place] [address] PCP - General Family Practice 09/29/10 documented as of this encounter
--- OUTSIDE RECORDS SUMMARY | 2025-01-03 07:45 | XMS_ITS | Encounter Summary ---
Author Organization [facility] Address [address] [place] [address] Care Team Providers Care Folder Operator Name Role Phone Epi French MD Primary Care Provider [phone] Encounter Details Date Type Department Care Team (Latest Contact Info) Description 05/02/2000 Outpatient Historical [facility] Jay Perales NO ADDRESS ON FILE Esophageal reflux (Primary Dx); Diaphragmatic hernia Social History Tobacco Use Types Packs/Day Years Used Date Smoking Tobacco: Never Assessed Comments Unknown Sex and Gender Information Value Date Recorded Sex Assigned at Not on file Legal Sex Female 3:09 AM MANAGER ADULT Gender Identity Not on file Sexual Orientation Not on file documented as of this encounter Plan of Treatment Not on file documented as of this encounter Visit Diagnoses Diagnosis Esophageal reflux- Primary Diaphragmatic hernia Diaphragmatic hernia without mention of obstruction or gangrene documented in this encounter Care Teams Folder Operator Relationship Specialty Start Date End Date Epi French MD [address] [place] [phone] PCP - General Family Practice 09/29/10 documented as of this encounter
--- OUTSIDE RECORDS SUMMARY | 2025-01-03 07:45 | XMS_ITS | Encounter Summary ---
Author Organization [facility] Address [address] [facility] Attn: [place] [address] Care Team Providers Care Accounts Payable Bookkeeper Name Role Phone Epi French MD Primary Care Provider [phone] Encounter Details Date Type Department Care Team (Late st Contact Info) Description 03/25/1999 Outpatient Historical Javy Newsome DO NO ADDRESS ON FILE Social History Tobacco Use Types Packs/Day Years Used Date Smoking Tobacco: Never Assessed Comments Unknown Sex and Gender Information Value Date Recorded Sex Assigned at Not on file Legal Sex Female 3:09 AM HEAD GRINDER Gender Identity Not on file Sexual Orientation Not on file documented as of this encounter Plan of Treatment Not on file documented as of this encounter Visit Diagnoses Not on filedocumented in this encounter Care Teams Accounts Payable Bookkeeper Relationship Specialty Start Date End Date Epi French MD [address] [place] [address] PCP - General Family Practice 09/29/10 documented as of this encounter
--- OUTSIDE RECORDS SUMMARY | 2025-01-03 07:45 | XMS_ITS | Encounter Summary ---
Author Organization [facility] Address [address] [place] [address] Care Team Providers Care Component Assembler Supervisor Name Role Phone Epi French MD Primary Care Provider [phone] Encounter Details Date Type Department Care Team (Latest Contact Info) Description 07/23/2007 Outpatient Historical [facility] Pain Management Procedures [address] [place] [address] Cabrera Altamirano MD NO ADDRESS ON FILE Reflex Sympathetic Dystrophy of the Lower Limb; Esophageal Reflux; Personal History of Allergy to Sulfonamides Social History Tobacco Use Types Packs/Day Years Used Date Smoking Tobacco: Never Assessed Comments Unknown Sex and Gender Information Value Date Recorded Sex Assigned at Not on file Legal Sex Female 3:09 AM CAMPUS WELLNESS COORDINATOR Gender Identity Not on file Sexual Orientation Not on file documented as of this encounter Plan of Treatment Not on file documented as of this encounter Visit Diagnoses Diagnosis Reflex sympathetic dystrophy of the lower limb Esophageal reflux Personal history of allergy to sulfonamides documented in this encounter Care Teams Component Assembler Supervisor Relationship Specialty Start Date End Date Epi French MD [address] [place] [phone] PCP - General Family Practice 09/29/10 documented as of this encounter
--- OUTSIDE RECORDS SUMMARY | 2025-01-03 07:45 | XMS_ITS | Encounter Summary ---
Author Organization [facility] Address [address] [facility] Attn: [place] [address] Care Team Providers Care Radiator Repairer Name Role Phone Epi French MD Primary Care Provider [phone] Encounter Details Date Type Department Care Team (Late st Contact Info) Description 05/06/1999 Outpatient Historical Cabrera Altamirano MD NO ADDRESS ON FILE Social History Tobacco Use Types Packs/Day Years Used Date Smoking Tobacco: Never Assessed Comments Unknown Sex and Gender Information Value Date Recorded Sex Assigned at Not on file Legal Sex Female 3:09 AM RESEARCH SPECIALIST Gender Identity Not on file Sexual Orientation Not on file documented as of this encounter Plan of Treatment Not on file documented as of this encounter Visit Diagnoses Not on filedocumented in this encounter Care Teams Radiator Repairer Relationship Specialty Start Date End Date Epi French MD [address] [place] [phone] PCP - General Family Practice 09/29/10 documented as of this encounter
--- OUTSIDE RECORDS SUMMARY | 2025-01-03 07:45 | XMS_ITS | Encounter Summary ---
Author Organization [facility] Address [address] [place] [address] Care Team Providers Care Service Desk Analyst Name Role Phone Epi French MD Primary Care Provider [phone] Encounter Details Date Type Department Care Team (Latest Contact Info) Description 08/05/2002 Outpatient Historical [facility] Multidisciplinary Chronic Pain [address] [place] [phone] Solomon Puga MD NO ADDRESS ON FILE FIT/ADJUST NERV/SENS SYSTEM DEVICE (Primary Dx) Social History Tobacco Use Types Packs/Day Years Used Date Smoking Tobacco: Never Assessed Comments Unknown Sex and Gender Information Value Date Recorded Sex Assigned at Not on file Legal Sex Female 3:09 AM TILER'S ASSISTANT Gender Identity Not on file Sexual Orientation Not on file documented as of this encounter Plan of Treatment Not on file documented as of this encounter Visit Diagnoses Diagnosis Fitting and adjustment of other devices related to nervous system and special senses- Primary documented in this encounter Care Teams Service Desk Analyst Relationship Specialty Start Date End Date Epi French MD [address] [place] [phone] PCP - General Family Practice 09/29/10 documented as of this encounter
--- OUTSIDE RECORDS SUMMARY | 2025-01-03 07:45 | XMS_ITS | Encounter Summary ---
Author Organization [facility] Address [address] [place] [address] Care Team Providers Care Color Repairer Name Role Phone Epi French MD Primary Care Provider [phone] Encounter Details Date Type Department Care Team (Latest Contact Info) Description 11/18/2002 Outpatient Historical [facility] Multidisciplinary Chronic Pain [address] [place] [phone] Regulo Cm MD [address] [place] [address] FIT/ADJUST NERV/SENS SYSTEM DEVICE (Primary Dx) Social History Tobacco Use Types Packs/Day Years Used Date Smoking Tobacco: Never Assessed Comments Unknown Sex and Gender Information Value Date Recorded Sex Assigned at Not on file Legal Sex Female 3:09 AM MEDICAL OFFICER Gender Identity Not on file Sexual Orientation Not on file documented as of this encounter Plan of Treatment Not on file documented as of this encounter Visit Diagnoses Diagnosis Fitting and adjustment of other devices related to nervous system and special senses- Primary documented in this encounter Care Teams Color Repairer Relationship Specialty Start Date End Date Epi French MD [address] [place] [address] PCP - General Family Practice 09/29/10 documented as of this encounter
--- OUTSIDE RECORDS SUMMARY | 2025-01-03 07:45 | XMS_ITS | Encounter Summary ---
Author Organization [facility] Address [address] [facility] Attn: [place] [address] Care Team Providers Care Photoengraving Printer Name Role Phone Epi French MD Primary Care Provider [phone] Encounter Details Date Type Department Care Team (Late st Contact Info) Description 04/15/1999 Outpatient Historical Solomon Puga MD NO ADDRESS ON FILE Social History Tobacco Use Types Packs/Day Years Used Date Smoking Tobacco: Never Assessed Comments Unknown Sex and Gender Information Value Date Recorded Sex Assigned at Not on file Legal Sex Female 3:09 AM CRIBBING SETTER Gender Identity Not on file Sexual Orientation Not on file documented as of this encounter Plan of Treatment Not on file documented as of this encounter Visit Diagnoses Not on filedocumented in this encounter Care Teams Photoengraving Printer Relationship Specialty Start Date End Date Epi French MD [address] [place] [address] PCP - General Family Practice 09/29/10 documented as of this encounter
--- OUTSIDE RECORDS SUMMARY | 2025-01-03 07:45 | XMS_ITS | Encounter Summary ---
Author Organization [facility] Address [address] [place] [address] Care Team Providers Care Box Truck Owner Operator Name Role Phone Epi French MD Primary Care Provider [phone] Encounter Details Date Type Department Care Team (Latest Contact Info) Description 10/31/2002 Outpatient Historical [facility] Multidisciplinary Chronic Pain [address] [place] [address] Cabrera Altamirano MD NO ADDRESS ON FILE REFLEX SYMPATH DYSTRPHY LOWER LIMB (Primary Dx) Social History Tobacco Use Types Packs/Day Years Used Date Smoking Tobacco: Never Assessed Comments Unknown Sex and Gender Information Value Date Recorded Sex Assigned at Not on file Legal Sex Female 3:09 AM PRECISION 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
--- OUTSIDE RECORDS SUMMARY | 2025-01-03 07:45 | XMS_ITS | Encounter Summary ---
Author Organization [facility] Address [address] [place] [address] Care Team Providers Care Commercial Real Estate Attorney Name Role Phone Epi French MD Primary Care Provider [phone] Encounter Details Date Type Department Care Team (Latest Contact Info) Description 12/27/2002 Outpatient Historical [facility] Multidisciplinary Chronic Pain [address] [place] [address] Regulo Cm MD [address] [place] [address] FIT/ADJUST NERV/SENS SYSTEM DEVICE (Primary Dx) Social History Tobacco Use Types Packs/Day Years Used Date Smoking Tobacco: Never Assessed Comments Unknown Sex and Gender Information Value Date Recorded Sex Assigned at Not on file Legal Sex Female 3:09 AM LINE DEPARTMENT SUPERVISOR Gender Identity Not on file Sexual Orientation Not on file documented as of this encounter Plan of Treatment Not on file documented as of this encounter Visit Diagnoses Diagnosis Fitting and adjustment of other devices related to nervous system and special senses- Primary documented in this encounter Care Teams Commercial Real Estate Attorney Relationship Specialty Start Date End Date Epi French MD [address] [place] [address] PCP - General Family Practice 09/29/10 documented as of this encounter
--- OUTSIDE RECORDS SUMMARY | 2025-01-03 07:45 | XMS_ITS | Encounter Summary ---
Author Organization [facility] Address [address] [facility] Attn: [place] [address] Care Team Providers Care Food Counter Attendant Name Role Phone Epi French MD Primary Care Provider [phone] Encounter Details Date Type Department Care Team (Late st Contact Info) Description 05/27/1999 Outpatient Historical Cabrera Altamirano MD NO ADDRESS ON FILE Social History Tobacco Use Types Packs/Day Years Used Date Smoking Tobacco: Never Assessed Comments Unknown Sex and Gender Information Value Date Recorded Sex Assigned at Not on file Legal Sex Female 3:09 AM BUSINESS CONTROL MANAGER Gender Identity Not on file Sexual Orientation Not on file documented as of this encounter Plan of Treatment Not on file documented as of this encounter Visit Diagnoses Not on filedocumented in this encounter Care Teams Food Counter Attendant Relationship Specialty Start Date End Date Epi French MD [address] [place] [phone] PCP - General Family Practice 09/29/10 documented as of this encounter
--- OUTSIDE RECORDS SUMMARY | 2025-01-03 07:45 | XMS_ITS | Encounter Summary ---
Author Organization [facility] Address [address] [place] [address] Care Team Providers Care Organizational Development Director Name Role Phone Epi French MD Primary Care Provider [phone] Encounter Details Date Type Department Care Team (Latest Contact Info) Description 05/12/1999 Outpatient Historical [facility] Jay Perales NO ADDRESS ON FILE Acute sinusitis, unspecified (Primary Dx) Social History Tobacco Use Types Packs/Day Years Used Date Smoking Tobacco: Never Assessed Comments Unknown Sex and Gender Information Value Date Recorded Sex Assigned at Not on file Legal Sex Female 3:09 AM INVESTMENT CONSULTANT Gender Identity Not on file Sexual Orientation Not on file documented as of this encounter Plan of Treatment Not on file documented as of this encounter Visit Diagnoses Diagnosis Acute sinusitis, unspecified- Primary documented in this encounter Care Teams Organizational Development Director Relationship Specialty Start Date End Date Epi French MD [address] [place] [phone] PCP - General Family Practice 09/29/10 documented as of this encounter
--- OUTSIDE RECORDS SUMMARY | 2025-01-03 07:45 | XMS_ITS | Encounter Summary ---
Author Organization [facility] Address [address] [place] [address] Care Team Providers Care Office Machine Embossograph Operator Name Role Phone Epi French MD Primary Care Provider [phone] Encounter Details Date Type Department Care Team (Latest Contact Info) Description 08/23/2002 Outpatient Historical [facility] Multidisciplinary Chronic Pain [address] [place] [address] Cabrera Altamirano MD NO ADDRESS ON FILE FIT/ADJUST NERV/SENS SYSTEM DEVICE (Primary Dx) Social History Tobacco Use Types Packs/Day Years Used Date Smoking Tobacco: Never Assessed Comments Unknown Sex and Gender Information Value Date Recorded Sex Assigned at Not on file Legal Sex Female 3: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
--- OUTSIDE RECORDS SUMMARY | 2025-01-03 07:45 | XMS_ITS | Encounter Summary ---
Author Organization [facility] Address [address] [facility] Attn: [place] [address] Care Team Providers Care Financial Reporting Accountant Name Role Phone Epi French MD Primary Care Provider [phone] Encounter Details Date Type Department Care Team (Late st Contact Info) Description 06/15/1999 Outpatient Historical Cabrera Altamirano MD NO ADDRESS ON FILE Social History Tobacco Use Types Packs/Day Years Used Date Smoking Tobacco: Never Assessed Comments Unknown Sex and Gender Information Value Date Recorded Sex Assigned at Not on file Legal Sex Female 3:09 AM SCOUT PROFESSIONAL SPORTS Gender Identity Not on file Sexual Orientation Not on file documented as of this encounter Plan of Treatment Not on file documented as of this encounter Visit Diagnoses Not on filedocumented in this encounter Care Teams Financial Reporting Accountant Relationship Specialty Start Date End Date Epi French MD [address] [place] [phone] PCP - General Family Practice 09/29/10 documented as of this encounter
--- OUTSIDE RECORDS SUMMARY | 2025-01-03 07:45 | XMS_ITS | Encounter Summary ---
Author Organization Address [facility] Attn: [place] [address] Care Team Providers Care Wire Tester Name Role Phone Epi French MD Primary Care Provider [phone] Encounter Details Date Type Department Care Team (Late st Contact Info) Description 07/06/1999 Outpatient Historical Solomon Puga MD NO ADDRESS ON FILE Cabrera Altamirano MD NO ADDRESS ON FILE Social History Tobacco Use Types Packs/Day Years Used Date Smoking Tobacco: Never Assessed Comments Unknown Sex and Gender Information Value Date Recorded Sex Assigned at Not on file Legal Sex Female 3:09 AM STENCIL MAKER Gender Identity Not on file Sexual Orientation Not on file documented as of this encounter Plan of Treatment Not on file documented as of this encounter Visit Diagnoses Not on filedocumented in this encounter Care Teams Wire Tester Relationship Specialty Start Date End Date Epi French MD [address] [place] [phone] PCP - General Family Practice 09/29/10 documented as of this encounter
--- OUTSIDE RECORDS SUMMARY | 2025-01-03 07:45 | XMS_ITS | Encounter Summary ---
Author Organization [facility] Address [address] [place] [address] Care Team Providers Care Hand Bobbin Cleaner Name Role Phone Epi French MD Primary Care Provider [phone] Encounter Details Date Type Department Care Team (Latest Contact Info) Description 09/27/2002 Outpatient [address] [facility] Multidisciplinary Chronic Pain [address] [place] [phone] Cabrera Altamirano MD NO ADDRESS ON FILE FIT/ADJUST NERV/SENS SYSTEM DEVICE (Primary Dx) Social History Tobacco Use Types Packs/Day Years Used Date Smoking Tobacco: Never Assessed Comments Unknown Sex and Gender Information Value Date Recorded Sex Assigned at Not on file Legal Sex Female 3:09 AM SECURITY SYSTEMS ENGINEER Gender Identity Not on file Sexual Orientation Not on file documented as of this encounter Plan of Treatment Not on file documented as of this encounter Visit Diagnoses Diagnosis Fitting and adjustment of other devices related to nervous system and special senses- Primary documented in this encounter Care Teams Hand Bobbin Cleaner Relationship Specialty Start Date End Date Epi French MD [address] [place] [phone] PCP - General Family Practice 09/29/10 documented as of this encounter
--- OUTSIDE RECORDS SUMMARY | 2025-01-03 07:45 | XMS_ITS | Encounter Summary ---
Author Organization [facility] Address [address] [place] [address] Care Team Providers Care Steam Clothes Press Operator Name Role Phone Epi French MD Primary Care Provider [phone] Encounter Details Date Type Department Care Team (Latest Contact Info) Description 12/29/1999 Outpatient Historical [facility] Jay Perales NO ADDRESS ON FILE Bronchitis, not specified as acute or chronic (Primary Dx) Social History Tobacco Use Types Packs/Day Years Used Date Smoking Tobacco: Never Assessed Comments Unknown Sex and Gender Information Value Date Recorded Sex Assigned at Not on file Legal Sex Female 3:09 AM HEALTHCARE SALES REPRESENTATIVE Gender Identity Not on file Sexual Orientation Not on file documented as of this encounter Plan of Treatment Not on file documented as of this encounter Visit Diagnoses Diagnosis Bronchitis, not specified as acute or chronic- Primary documented in this encounter Care Teams Steam Clothes Press Operator Relationship Specialty Start Date End Date Epi French MD [address] [place] [phone] PCP - General Family Practice 09/29/10 documented as of this encounter
--- OUTSIDE RECORDS SUMMARY | 2025-01-03 07:45 | XMS_ITS | Encounter Summary ---
Author Organization [facility] Address [address] [place] [address] Care Team Providers Care Hematology Nurse Name Role Phone Epi French MD Primary Care Provider [phone] Encounter Details Date Type Department Care Team (Latest Contact Info) Description 07/19/2002 Outpatient Historical [facility] Multidisciplinary Chronic Pain [address] [place] [address] Cabrera Altamirano MD NO ADDRESS ON FILE FIT/ADJUST NERV/SENS SYSTEM DEVICE (Primary Dx) Social History Tobacco Use Types Packs/Day Years Used Date Smoking Tobacco: Never Assessed Comments Unknown Sex and Gender Information Value Date Recorded Sex Assigned at Not on file Legal Sex Female 3:09 AM FLOAT NURSE Gender Identity Not on file Sexual Orientation Not on file documented as of this encounter Plan of Treatment Not on file documented as of this encounter Visit Diagnoses Diagnosis Fitting and adjustment of other devices related to nervous system and special senses- Primary documented in this encounter Care Teams Hematology Nurse Relationship Specialty Start Date End Date Epi French MD [address] [place] [phone] PCP - General Family Practice 09/29/10 documented as of this encounter
--- OUTSIDE RECORDS SUMMARY | 2025-01-03 07:45 | XMS_ITS | Encounter Summary ---
Author Organization [facility] Address [address] [place] [address] Care Team Providers Care Prosthodontist Name Role Phone Epi French MD Primary Care Provider [phone] Encounter Details Date Type Department Care Team (Late st Contact Info) Description 05/21/2001 Outpatient Historical [facility] [address] [place] [address] Social History Tobacco Use Types Packs/Day Years Used Date Smoking Tobacco: Never Assessed Comments Unknown Sex and Gender Information Value Date Recorded Sex Assigned at Not on file Legal Sex Female 3:09 AM DESIGN RELEASE ENGINEER Gender Identity Not on file Sexual Orientation Not on file documented as of this encounter Plan of Treatment Not on file documented as of this encounter Visit Diagnoses Not on filedocumented in this encounter Care Teams Prosthodontist Relationship Specialty Start Date End Date Epi French MD [address] [place] [phone] PCP - General Family Practice 09/29/10 documented as of this encounter
--- OUTSIDE RECORDS SUMMARY | 2025-01-03 07:45 | XMS_ITS | Encounter Summary ---
Author Organization [facility] Address [address] [place] [address] Care Team Providers Care Liner Machine Operator Helper Name Role Phone Epi French MD Primary Care Provider [phone] Encounter Details Date Type Department Care Team (Latest Contact Info) Description 03/15/1999 Outpatient Historical [facility] Jay Perales NO ADDRESS ON FILE Influenza with other respiratory manifestations (Primary Dx) Social History Tobacco Use Types Packs/Day Years Used Date Smoking Tobacco: Never Assessed Comments Unknown Sex and Gender Information Value Date Recorded Sex Assigned at Not on file Legal Sex Female 3:09 AM ACCESS RN Gender Identity Not on file Sexual Orientation Not on file documented as of this encounter Plan of Treatment Not on file documented as of this encounter Visit Diagnoses Diagnosis Influenza with other respiratory manifestations- Primary documented in this encounter Care Teams Liner Machine Operator Helper Relationship Specialty Start Date End Date Epi French MD [address] [place] [phone] PCP - General Family Practice 09/29/10 documented as of this encounter
--- OUTSIDE RECORDS SUMMARY | 2025-01-03 07:45 | XMS_ITS | Encounter Summary ---
Author Organization [facility] Address [address] [place] [address] Care Team Providers Care Lead Tinner Name Role Phone Epi French MD Primary Care Provider [phone] Encounter Details Date Type Department Care Team (Late st Contact Info) Description 05/04/2001 Outpatient [facility] [address] [place] [address] Social History Tobacco Use Types Packs/Day Years Used Date Smoking Tobacco: Never Assessed Comments Unknown Sex and Gender Information Value Date Recorded Sex Assigned at Not on file Legal Sex Female 3:09 AM SPLITTING MACHINE TENDER Gender Identity Not on file Sexual Orientation Not on file documented as of this encounter Plan of Treatment Not on file documented as of this encounter Visit Diagnoses Not on filedocumented in this encounter Care Teams Lead Tinner Relationship Specialty Start Date End Date Epi French MD [address] [place] [phone] PCP - General Family Practice 09/29/10 documented as of this encounter
--- OUTSIDE RECORDS SUMMARY | 2025-01-03 07:45 | XMS_ITS | Encounter Summary ---
Author Organization [facility] Address [address] [place] [address] Care Team Providers Care Large Animal Veterinarian Name Role Phone Epi French MD Primary Care Provider [phone] Encounter Details Date Type Department Care Team (Late st Contact Info) Description 07/19/2002 Outpatient Historical [facility] [address] [place] [address] Social History Tobacco Use Types Packs/Day Years Used Date Smoking Tobacco: Never Assessed Comments Unknown Sex and Gender Information Value Date Recorded Sex Assigned at Not on file Legal Sex Female 3:09 AM FIBER TECHNICIAN Gender Identity Not on file Sexual Orientation Not on file documented as of this encounter Plan of Treatment Not on file documented as of this encounter Visit Diagnoses Not on filedocumented in this encounter Care Teams Large Animal Veterinarian Relationship Specialty Start Date End Date Epi French MD [address] [place] [phone] PCP - General Family Practice 09/29/10 documented as of this encounter
--- OUTSIDE RECORDS SUMMARY | 2025-01-03 07:46 | XMS_ITS | Encounter Summary ---
Author Organization [facility] Address [address] [place] [address] Care Team Providers Care Cement Sprayer Helper Name Role Phone Epi French MD Primary Care Provider [phone] Encounter Details Date Type Department Care Team (Latest Contact Info) Description 01/29/2002 Outpatient Historical [facility] Multidisciplinary Chronic Pain [address] [place] [address] Cabrera Altamirano MD NO ADDRESS ON FILE FIT/ADJUST NERV/SENS SYSTEM DEVICE (Primary Dx) Social History Tobacco Use Types Packs/Day Years Used Date Smoking Tobacco: Never Assessed Comments Unknown Sex and Gender Information Value Date Recorded Sex Assigned at Not on file Legal Sex Female 3:09 AM CUT OFF OPERATOR SCORER Gender Identity Not on file Sexual Orientation Not on file documented as of this encounter Plan of Treatment Not on file documented as of this encounter Visit Diagnoses Diagnosis Fitting and adjustment of other devices related to nervous system and special senses- Primary documented in this encounter Care Teams Cement Sprayer Helper Relationship Specialty Start Date End Date Epi French MD [address] [place] [phone] PCP - General Family Practice 09/29/10 documented as of this encounter
--- OUTSIDE RECORDS SUMMARY | 2025-01-03 07:46 | XMS_ITS | Encounter Summary ---
Author Organization [facility] Address [address] [place] [address] Care Team Providers Care Automotive Service Cashier Name Role Phone Epi French MD Primary Care Provider [phone] Encounter Details Date Type Department Care Team (Latest Contact Info) Description 01/11/2002 Outpatient Historical [facility] Multidisciplinary Chronic Pain [address] [place] [address] Cabrera Altamirano MD NO ADDRESS ON FILE REFLEX SYMPATH DYSTRPHY LOWER LIMB (Primary Dx) Social History Tobacco Use Types Packs/Day Years Used Date Smoking Tobacco: Never Assessed Comments Unknown Sex and Gender Information Value Date Recorded Sex Assigned at Not on file Legal Sex Female 3:09 AM DIVIDEND DEPOSIT VOUCHER CLERK Gender Identity Not on file Sexual Orientation Not on file documented as of this encounter Plan of Treatment Not on file documented as of this encounter Visit Diagnoses Diagnosis 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
--- OUTSIDE RECORDS SUMMARY | 2025-01-03 07:46 | XMS_ITS | Encounter Summary ---
Author Organization [facility] Address [address] [place] [address] Care Team Providers Care Weigh And Charge Worker Name Role Phone Epi French MD Primary Care Provider [phone] Encounter Details Date Type Department Care Team (Latest Contact Info) Description 12/18/2001 Outpatient Historical [facility] Regulo Cm MD [address] [place] [address] VACCINE FOR INFLUENZA (Primary Dx) Social History Tobacco Use Types Packs/Day Years Used Date Smoking Tobacco: Never Assessed Comments Unknown Sex and Gender Information Value Date Recorded Sex Assigned at Not on file Legal Sex Female 3:09 AM SECURITY TEST ENGINEER Gender Identity Not on file Sexual Orientation Not on file documented as of this encounter Plan of Treatment Not on file documented as of this encounter Visit Diagnoses Diagnosis Need vaccination-viral disease- Primary Need for prophylactic vaccination and inoculation against other viral diseases documented in this encounter Care Teams Weigh And Charge Worker Relationship Specialty Start Date End Date Epi French MD [address] [place] [phone] PCP - General Family Practice 09/29/10 documented as of this encounter
--- OUTSIDE RECORDS SUMMARY | 2025-01-03 07:46 | XMS_ITS | Encounter Summary ---
Author Organization [facility] Address [address] [place] [address] Care Team Providers Care Electronic Systems Security Assessment Name Role Phone Epi French MD Primary Care Provider [phone] Encounter Details Date Type Department Care Team (Late st Contact Info) Description 01/11/2002 Outpatient Historical [facility] [address] [place] [address] Social History Tobacco Use Types Packs/Day Years Used Date Smoking Tobacco: Never Assessed Comments Unknown Sex and Gender Information Value Date Recorded Sex Assigned at Not on file Legal Sex Female 3:09 AM CANTEEN MANAGER Gender Identity Not on file Sexual Orientation Not on file documented as of this encounter Plan of Treatment Not on file documented as of this encounter Visit Diagnoses Not on filedocumented in this encounter Care Teams Electronic Systems Security Assessment Relationship Specialty Start Date End Date Epi French MD [address] [place] [phone] PCP - General Family Practice 09/29/10 documented as of this encounter
--- OUTSIDE RECORDS SUMMARY | 2025-01-03 07:46 | XMS_ITS | Encounter Summary ---
Author Organization [facility] Address [address] [place] [address] Care Team Providers Care Baggage Clerk Name Role Phone Epi French MD Primary Care Provider [phone] Encounter Details Date Type Department Care Team (Latest Contact Info) Description 09/21/2001 Outpatient Historical [facility] Regulo Cm MD [address] [place] [address] ACUTE SINUSITIS NOS (Primary Dx) Social History Tobacco Use Types Packs/Day Years Used Date Smoking Tobacco: Never Assessed Comments Unknown Sex and Gender Information Value Date Recorded Sex Assigned at Not on file Legal Sex Female 3:09 AM AUTOMOTIVE COLLISION REPAIR INSTRUCTOR Gender Identity Not on file Sexual Orientation Not on file documented as of this encounter Plan of Treatment Not on file documented as of this encounter Visit Diagnoses Diagnosis Acute sinusitis, unspecified- Primary documented in this encounter Care Teams Baggage Clerk Relationship Specialty Start Date End Date Epi French MD [address] [place] [phone] PCP - General Family Practice 09/29/10 documented as of this encounter
--- OUTSIDE RECORDS SUMMARY | 2025-01-03 07:46 | XMS_ITS | Encounter Summary ---
Author Organization [facility] Address [address] [facility] Attn: [place] [address] Care Team Providers Care Surgery Scheduler Name Role Phone Epi French MD Primary Care Provider [phone] Encounter Details Date Type Department Care Team (Late st Contact Info) Description 10/23/2001 Outpatient Historical Regulo Cm MD [address] [place] [address] Social History Tobacco Use Types Packs/Day Years Used Date Smoking Tobacco: Never Assessed Comments Unknown Sex and Gender Information Value Date Recorded Sex Assigned at Not on file Legal Sex Female 3:09 AM OPTICIAN MANAGER Gender Identity Not on file Sexual Orientation Not on file documented as of this encounter Plan of Treatment Not on file documented as of this encounter Visit Diagnoses Not on filedocumented in this encounter Care Teams Surgery Scheduler Relationship Specialty Start Date End Date Epi French MD [address] [place] [phone] PCP - General Family Practice 09/29/10 documented as of this encounter
--- OUTSIDE RECORDS SUMMARY | 2025-01-03 07:46 | XMS_ITS | Encounter Summary ---
Author Organization [facility] Address [address] [place] [address] Care Team Providers Care Otr Flatbed Company Truck Driver Name Role Phone Epi French MD Primary Care Provider [phone] Encounter Details Date Type Department Care Team (Late st Contact Info) Description 08/31/2007 Outpatient Historical [facility] Pain Management Procedures [address] 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
--- OUTSIDE RECORDS SUMMARY | 2025-01-03 07:46 | XMS_ITS | Encounter Summary ---
Author Organization [facility] Address [address] [place] [address] Care Team Providers Care Director Of Coding Name Role Phone Epi French MD Primary Care Provider [phone] Encounter Details Date Type Department Care Team (Latest Contact Info) Description 02/13/2002 Outpatient Historical [facility] Multidisciplinary Chronic Pain [address] [place] [address] Solomon Puga MD NO ADDRESS ON FILE FIT/ADJUST NERV/SENS SYSTEM DEVICE (Primary Dx) Social History Tobacco Use Types Packs/Day Years Used Date Smoking Tobacco: Never Assessed Comments Unknown Sex and Gender Information Value Date Recorded Sex Assigned at Not on file Legal Sex Female 3:09 AM DREDGE PIPEMAN Gender Identity Not on file Sexual Orientation Not on file documented as of this encounter Plan of Treatment Not on file documented as of this encounter Visit Diagnoses Diagnosis Fitting and adjustment of other devices related to nervous system and special senses- Primary documented in this encounter Care Teams Director Of Coding Relationship Specialty Start Date End Date Epi French MD [address] [place] [address] PCP - General Family Practice 09/29/10 documented as of this encounter
--- OUTSIDE RECORDS SUMMARY | 2025-01-03 07:46 | XMS_ITS | Encounter Summary ---
Author Organization [facility] Address [address] [facility] Attn: [place] [address] Care Team Providers Care Carpenter Repairer Name Role Phone Epi French MD Primary Care Provider [phone] Encounter Details Date Type Department Care Team (Late st Contact Info) Description 12/12/2001 Outpatient Historical Cabrera Altamirano MD NO ADDRESS ON FILE Social History Tobacco Use Types Packs/Day Years Used Date Smoking Tobacco: Never Assessed Comments Unknown Sex and Gender Information Value Date Recorded Sex Assigned at Not on file Legal Sex Female 3:09 AM TIRE MOLD TESTER Gender Identity Not on file Sexual Orientation Not on file documented as of this encounter Plan of Treatment Not on file documented as of this encounter Visit Diagnoses Not on filedocumented in this encounter Care Teams Carpenter Repairer Relationship Specialty Start Date End Date Epi French MD [address] [place] [phone] PCP - General Family Practice 09/29/10 documented as of this encounter
--- OUTSIDE RECORDS SUMMARY | 2025-01-03 07:46 | XMS_ITS | Encounter Summary ---
Author Organization [facility] Address [address] [place] [address] Care Team Providers Care Chainstitch Binder Name Role Phone Epi French MD Primary Care Provider [phone] Encounter Details Date Type Department Care Team (Latest Contact Info) Description 06/11/2007 Outpatient Historical [facility] Pain Management Procedures [address] 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
--- OUTSIDE RECORDS SUMMARY | 2025-01-03 07:46 | XMS_ITS | Encounter Summary ---
Author Organization [facility] Address [address] [place] [address] Care Team Providers Care Design Technology Professor Name Role Phone Epi French MD Primary Care Provider [phone] Encounter Details Date Type Department Care Team (Late st Contact Info) Description 11/18/2005 Outpatient Historical [facility] Pain Management Procedures [address] [place] [address] Cabrera Altamirano MD NO ADDRESS ON FILE Adjust Nerv Syst Device (Primary Dx) Social History Tobacco Use Types Packs/Day Years Used Date Smoking Tobacco: Never Assessed Comments Unknown Sex and Gender Information Value Date Recorded Sex Assigned at Not on file Legal Sex Female 3:09 AM INSTRUMENT AND CONTROL TECHNICIAN Gender Identity Not on file Sexual Orientation Not on file documented as of this encounter Plan of Treatment Not on file documented as of this encounter Visit Diagnoses Diagnosis Fitting and adjustment of other devices related to nervous system and special senses- Primary documented in this encounter Care Teams Design Technology Professor Relationship Specialty Start Date End Date Epi French MD [address] [place] [phone] PCP - General Family Practice 09/29/10 documented as of this encounter
--- OUTSIDE RECORDS SUMMARY | 2025-01-03 07:46 | XMS_ITS | Encounter Summary ---
Author Organization [facility] Address [address] [place] [address] Care Team Providers Care Pot Feeder Name Role Phone Epi French MD Primary Care Provider [phone] Encounter Details Date Type Department Care Team (Late st Contact Info) Description 08/05/2005 Outpatient Historical [facility] Pain Management Procedures [address] [place] [address] Cabrera Altamirano MD NO ADDRESS ON FILE Adjust Nerv Syst Device (Primary Dx) Social History Tobacco Use Types Packs/Day Years Used Date Smoking Tobacco: Never Assessed Comments Unknown Sex and Gender Information Value Date Recorded Sex Assigned at Not on file Legal Sex Female 3:09 AM LIBRARIAN HEAD Gender Identity Not on file Sexual Orientation Not on file documented as of this encounter Plan of Treatment Not on file documented as of this encounter Visit Diagnoses Diagnosis Fitting and adjustment of other devices related to nervous system and special senses- Primary documented in this encounter Care Teams Pot Feeder Relationship Specialty Start Date End Date Epi French MD [address] [place] [address] PCP - General Family Practice 09/29/10 documented as of this encounter
--- OUTSIDE RECORDS SUMMARY | 2025-01-03 07:46 | XMS_ITS | Encounter Summary ---
Author Organization [facility] Address [address] [place] [address] Care Team Providers Care Supervisor Canvas Products Name Role Phone Epi French MD Primary Care Provider [phone] Encounter Details Date Type Department Care Team (Latest Contact Info) Description 03/25/2002 Outpatient Historical [facility] Multidisciplinary Chronic Pain [address] [place] [address] Cabrera Altamirano MD NO ADDRESS ON FILE FIT/ADJUST NERV/SENS SYSTEM DEVICE (Primary Dx) Social History Tobacco Use Types Packs/Day Years Used Date Smoking Tobacco: Never Assessed Comments Unknown Sex and Gender Information Value Date Recorded Sex Assigned at Not on file Legal Sex Female 3:09 AM WIND FARM SUPPORT SPECIALIST Gender Identity Not on file Sexual Orientation Not on file documented as of this encounter Plan of Treatment Not on file documented as of this encounter Visit Diagnoses Diagnosis Fitting and adjustment of other devices related to nervous system and special senses- Primary documented in this encounter Care Teams Supervisor Canvas Products Relationship Specialty Start Date End Date Epi French MD [address] [place] [phone] PCP - General Family Practice 09/29/10 documented as of this encounter
--- OUTSIDE RECORDS SUMMARY | 2025-01-03 07:46 | XMS_ITS | Encounter Summary ---
Author Organization [facility] Address [address] [place] [address] Care Team Providers Care Loadmaster Name Role Phone Epi French MD Primary Care Provider [phone] Encounter Details Date Type Department Care Team (Late st Contact Info) Description 10/14/2005 Outpatient Historical [facility] Pain Management Procedures [address] 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
--- OUTSIDE RECORDS SUMMARY | 2025-01-03 07:46 | XMS_ITS | Encounter Summary ---
Author Organization [facility] Address [address] [place] [address] Care Team Providers Care Rn Lactation Consultant Name Role Phone Epi French MD Primary Care Provider Encounter Details Date Type Department Care Team (Latest Contact Info) Description 10/23/2001 Outpatient Historical [facility] Regulo Cm MD [address] [place] [address] DERMATOPHYTOSIS OF NAIL (Primary Dx); CELLULITIS OF DIGIT NOS Social History Tobacco Use Types Packs/Day Years Used Date Smoking Tobacco: Never Assessed Comments Unknown Sex and Gender Information Value Date Recorded Sex Assigned at Not on file Legal Sex Female 3:09 AM X RAY NURSE Gender Identity Not on file Sexual Orientation Not on file documented as of this encounter Plan of Treatment Not on file documented as of this encounter Visit Diagnoses Diagnosis Dermatophytosis of nail- Primary Cellulitis and abscess of unspecified digit documented in this encounter Care Teams Rn Lactation Consultant Relationship Specialty Start Date End Date Epi French MD [address] [place] [address] PCP - General Family Practice 09/29/10 documented as of this encounter
--- OUTSIDE RECORDS SUMMARY | 2025-01-03 07:46 | XMS_ITS | Encounter Summary ---
Author Organization [facility] Address [address] [place] [address] Care Team Providers Care Ssis Architect Name Role Phone Epi French MD Primary Care Provider [phone] Encounter Details Date Type Department Care Team (Late st Contact Info) Description 09/08/2005 Outpatient Historical [facility] Pain Management Procedures [address] [place] [address] Cabrera Altamirano MD NO ADDRESS ON FILE Adjust Nerv Syst Device (Primary Dx) Social History Tobacco Use Types Packs/Day Years Used Date Smoking Tobacco: Never Assessed Comments Unknown Sex and Gender Information Value Date Recorded Sex Assigned at Not on file Legal Sex Female 3:09 AM INDUSTRIAL WORKERS Gender Identity Not on file Sexual Orientation Not on file documented as of this encounter Plan of Treatment Not on file documented as of this encounter Visit Diagnoses Diagnosis Fitting and adjustment of other devices related to nervous system and special senses- Primary documented in this encounter Care Teams Ssis Architect Relationship Specialty Start Date End Date Epi French MD [address] [place] [phone] PCP - General Family Practice 09/29/10 documented as of this encounter
--- OUTSIDE RECORDS SUMMARY | 2025-01-03 07:46 | XMS_ITS | Encounter Summary ---
Author Organization [facility] Address [address] [place] [address] Care Team Providers Care Water Pump Assembler Name Role Phone Epi French MD Primary Care Provider [phone] Encounter Details Date Type Department Care Team (Late st Contact Info) Description 03/28/[address] [facility] [address] [place] [address] Social History Tobacco Use Types Packs/Day Years Used Date Smoking Tobacco: Never Assessed Comments Unknown Sex and Gender Information Value Date Recorded Sex Assigned at Not on file Legal Sex Female 3:09 AM TECHNICIAN'S HELPER Gender Identity Not on file Sexual Orientation Not on file documented as of this encounter Plan of Treatment Not on file documented as of this encounter Visit Diagnoses Not on filedocumented in this encounter Care Teams Water Pump Assembler Relationship Specialty Start Date End Date Epi French MD [address] [place] [phone] PCP - General Family Practice 09/29/10 documented as of this encounter
--- OUTSIDE RECORDS SUMMARY | 2025-01-03 07:46 | XMS_ITS | Encounter Summary ---
Author Organization [facility] Address [address] [place] [address] Care Team Providers Care Spline Rolling Machine Job Setter Name Role Phone Epi French MD Primary Care Provider [phone] Encounter Details Date Type Department Care Team (Late st Contact Info) Description 02/13/2002 Outpatient Historical [facility] [address] [place] [address] Social History Tobacco Use Types Packs/Day Years Used Date Smoking Tobacco: Never Assessed Comments Unknown Sex and Gender Information Value Date Recorded Sex Assigned at Not on file Legal Sex Female 3:09 AM GREEN MARKETING SPECIALIST Gender Identity Not on file Sexual Orientation Not on file documented as of this encounter Plan of Treatment Not on file documented as of this encounter Visit Diagnoses Not on filedocumented in this encounter Care Teams Spline Rolling Machine Job Setter Relationship Specialty Start Date End Date Epi French MD [address] [place] [phone] PCP - General Family Practice 09/29/10 documented as of this encounter
--- OUTSIDE RECORDS SUMMARY | 2025-01-03 07:46 | XMS_ITS | Clinical Summary ---
Author Organization [facility] Address [address] [place] [address] Care Team Providers Care Doctor Of Nurse Anesthesia Practice Name Role Phone Epi French MD Primary Care Provider [phone] Allergies Active Allergy Reactions Criticality Noted Date [...] on file Legal Sex Female 3:09 AM LAMINATING MACHINE TENDER Gender Identity Not on file [...] 12/18/2001, 2000 Medical Devices Implanted Type Area Residential Carpenter Device Identifier Shelf Expiration Date Model / Serial / Lot Log [id number] - Pain Management Implant Tray - 1 - Pump Synchromed Ii 40ml 8637-40 Implanted:Qty: 1 on 10/05/2010 at [facility] Catheter Right: Abdomen [employer]- NEUROLOGIC TECH 10/05/2017 8637-40 / [id number] / Intrathecal Catheter Revision Kit Implanted:Qty: 1 on 10/05/2010 at [facility] Other Back [employer]- NEUROLOGIC TECH [id number] / / [id number] Description:Intrathecal Cath eter Pump Segment Revision Kit #[id number] Medtronic Pump Patient Renal Medicine Specialist Implanted:Qty: 1 on 10/05/2010 at [facility] Other [employer]- NEUROLOGIC TECH [id number] / / Description:Pain Pump Patien t Renal Medicine Specialist Explanted Type Area Residential Carpenter Device Identifier Shelf Expiration Date Model / Serial / Lot Pain Pump Explanted:Qty: 1 on 10/05/2010 at [facility] Other Right: Abdomen [employer] [id number] / [id number] / Description:pain pump, impla nted 12/12/2001, end of life, discarded per protocol Insurance MEDICARE PART A AND B MEDICAID [place] Advance Directives For more information, please contact: [phone] * Full Code (Latest Code Status on File) Date Activated Date Inactivated Comments 10/05/2010 12:10 PM 10/06/2010 2:01 AM * Full Code Date Activated Date Inactivated Comments 10/05/2010 11:46 AM 10/05/2010 12:10 PM Care Teams Doctor Of Nurse Anesthesia Practice Relationship Specialty Start Date End Date Epi French MD [address] [place] [phone] PCP - General Family Practice 09/29/10
--- OUTSIDE RECORDS SUMMARY | 2025-01-03 07:46 | XMS_ITS | Encounter Summary ---
Author Organization [facility] Address [address] [place] [address] Care Team Providers Care Corporate Lawyer Name Role Phone Epi French MD Primary Care Provider [phone] Encounter Details Date Type Department Care Team (Late st Contact Info) Description 03/15/2002 Outpatient Historical [facility] [address] [place] [address] Social History Tobacco Use Types Packs/Day Years Used Date Smoking Tobacco: Never Assessed Comments Unknown Sex and Gender Information Value Date Recorded Sex Assigned at Not on file Legal Sex Female 3:09 AM DISSOLVER OPERATOR Gender Identity Not on file Sexual Orientation Not on file documented as of this encounter Plan of Treatment Not on file documented as of this encounter Visit Diagnoses Not on filedocumented in this encounter Care Teams Corporate Lawyer Relationship Specialty Start Date End Date Epi French MD [address] [place] [phone] PCP - General Family Practice 09/29/10 documented as of this encounter
--- OUTSIDE RECORDS SUMMARY | 2025-01-03 07:46 | XMS_ITS | Encounter Summary ---
Author Organization [facility] Address [address] [place] [address] Care Team Providers Care Sales Planning Analyst Name Role Phone Epi French MD Primary Care Provider [phone] Encounter Details Date Type Department Care Team (Late st Contact Info) Description 03/25/2002 Outpatient Historical [facility] [address] [place] [address] Social History Tobacco Use Types Packs/Day Years Used Date Smoking Tobacco: Never Assessed Comments Unknown Sex and Gender Information Value Date Recorded Sex Assigned at Not on file Legal Sex Female 3:09 AM PRINT 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
--- OUTSIDE RECORDS SUMMARY | 2025-01-03 07:46 | XMS_ITS | Encounter Summary ---
Author Organization [facility] Address [address] [place] [address] Care Team Providers Care Portfolio Management Marketing Name Role Phone Epi French MD Primary Care Provider [phone] Encounter Details Date Type Department Care Team (Latest Contact Info) Description 07/13/2001 Outpatient Historical [facility] Regulo Cm MD [address] [place] [address] BURSITIS NEC (Primary Dx); CRAMP IN LIMB; ORGANIC BRAIN SYND NEC Social History Tobacco Use Types Packs/Day Years Used Date Smoking Tobacco: Never Assessed Comments Unknown Sex and Gender Information Value Date Recorded Sex Assigned at Not on file Legal Sex Female 3:09 AM VIRGINIA LINE ATTENDANT Gender Identity Not on file Sexual Orientation Not on file documented as of this encounter Plan of Treatment Not on file documented as of this encounter Visit Diagnoses Diagnosis Other bursitis disorders- Primary Cramp of limb 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
--- NOTE | 2025-01-03 07:47 | XR_ITS ---
WS: [id number] Exam: XR chest 1V portable [id number] Date/Time of Exam: 01/03/2025 8:00 AM Reason For Exam: dyspnea/cough Comparison 09/06/2024. Mild cardiac enlargement unchanged. The lungs are fully inflated and clear. No pleural effusion. Unremarkable bony structures. XR/XR chest 1V portable [id number] IMPRESSION: 1. No acute cardiopulmonary finding. 2. Mild cardiac enlargement unchanged.
--- OUTSIDE RECORDS SUMMARY | 2025-01-03 07:47 | XMS_ITS | Encounter Summary ---
Author Organization [facility] Address [address] [place] [address] Care Team Providers Care Fringing Machine Operator Name Role Phone Epi French MD Primary Care Provider [phone] Encounter Details Date Type Department Care Team (Late st Contact Info) Description 07/11/2006 Outpatient Historical [facility] Pain Management Procedures [address] [place] [address] Cabrera Altamirano MD NO ADDRESS ON FILE Social History Tobacco Use Types Packs/Day Years Used Date Smoking Tobacco: Never Assessed Comments Unknown Sex and Gender Information Value Date Recorded Sex Assigned at Not on file Legal Sex Female 3:09 AM UTILIZATION COORDINATOR Gender Identity Not on file Sexual Orientation Not on file documented as of this encounter Plan of Treatment Not on file documented as of this encounter Visit Diagnoses Not on filedocumented in this encounter Care Teams Fringing Machine Operator Relationship Specialty Start Date End Date Epi French MD [address] [place] [address] PCP - General Family Practice 09/29/10 documented as of this encounter
--- OUTSIDE RECORDS SUMMARY | 2025-01-03 07:47 | XMS_ITS | Encounter Summary ---
Author Organization [facility] Address [address] [place] [address] Care Team Providers Care Body Art Technician Name Role Phone Epi French MD Primary Care Provider [phone] Encounter Details Date Type Department Care Team (Late st Contact Info) Description 02/14/2005 Outpatient Historical [facility] Pain Management Procedures [address] [place] [address] Cabrera Altamirano MD NO ADDRESS ON FILE FIT/ADJUST NERV/SENS SYSTEM DEVICE (Primary Dx) Social History Tobacco Use Types Packs/Day Years Used Date Smoking Tobacco: Never Assessed Comments Unknown Sex and Gender Information Value Date Recorded Sex Assigned at Not on file Legal Sex Female 3:09 AM SPECIAL DIET COOK Gender Identity Not on file Sexual Orientation Not on file documented as of this encounter Plan of Treatment Not on file documented as of this encounter Visit Diagnoses Diagnosis Fitting and adjustment of other devices related to nervous system and special senses- Primary documented in this encounter Care Teams Body Art Technician Relationship Specialty Start Date End Date Epi French MD [address] [place] [phone] PCP - General Family Practice 09/29/10 documented as of this encounter
--- OUTSIDE RECORDS SUMMARY | 2025-01-03 07:47 | XMS_ITS | Encounter Summary ---
Author Organization [facility] Address [address] [place] [address] Care Team Providers Care Communications Programmer Name Role Phone Epi French MD Primary Care Provider [phone] Encounter Details Date Type Department Care Team (Latest Contact Info) Description 03/15/2002 Outpatient Historical [facility] Multidisciplinary Chronic Pain [address] [place] [address] Cabrera Altamirano MD NO ADDRESS ON FILE FIT/ADJUST NERV/SENS SYSTEM DEVICE (Primary Dx) Social History Tobacco Use Types Packs/Day Years Used Date Smoking Tobacco: Never Assessed Comments Unknown Sex and Gender Information Value Date Recorded Sex Assigned at Not on file Legal Sex Female 3:09 AM BORDER GUARD Gender Identity Not on file Sexual Orientation Not on file documented as of this encounter Plan of Treatment Not on file documented as of this encounter Visit Diagnoses Diagnosis Fitting and adjustment of other devices related to nervous system and special senses- Primary documented in this encounter Care Teams Communications Programmer Relationship Specialty Start Date End Date Epi French MD [address] [place] [phone] PCP - General Family Practice 09/29/10 documented as of this encounter
--- OUTSIDE RECORDS SUMMARY | 2025-01-03 07:47 | XMS_ITS | Encounter Summary ---
Author Organization [facility] Address [address] [place] [address] Care Team Providers Care Informatics Developer Name Role Phone Epi French MD Primary Care Provider [phone] Encounter Details Date Type Department Care Team (Late st Contact Info) Description 01/06/2005 Outpatient Historical [facility] Pain Management Procedures [address] 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
--- OUTSIDE RECORDS SUMMARY | 2025-01-03 07:47 | XMS_ITS | Encounter Summary ---
Author Organization [facility] Address [address] [place] [address] Care Team Providers Care Project Estimator Name Role Phone Epi French MD Primary Care Provider [phone] Encounter Details Date Type Department Care Team (Late st Contact Info) Description 10/05/2006 Outpatient Historical [facility] Pain Management Procedures [address] [place] [address] Cabrera Altamirano MD NO ADDRESS ON FILE Adjust Nerv Syst Device (Primary Dx) Social History Tobacco Use Types Packs/Day Years Used Date Smoking Tobacco: Never Assessed Comments Unknown Sex and Gender Information Value Date Recorded Sex Assigned at Not on file Legal Sex Female 3:09 AM INSULATION MECHANIC Gender Identity Not on file Sexual Orientation Not on file documented as of this encounter Plan of Treatment Not on file documented as of this encounter Visit Diagnoses Diagnosis Fitting and adjustment of other devices related to nervous system and special senses- Primary documented in this encounter Care Teams Project Estimator Relationship Specialty Start Date End Date Epi French MD [address] [place] [phone] PCP - General Family Practice 09/29/10 documented as of this encounter
--- OUTSIDE RECORDS SUMMARY | 2025-01-03 07:47 | XMS_ITS | Encounter Summary ---
Author Organization [facility] Address [address] [place] [address] Care Team Providers Care Full Time Paramedic Name Role Phone Epi French MD Primary Care Provider [phone] Encounter Details Date Type Department Care Team (Late st Contact Info) Description 02/21/2001 Outpatient Historical [facility] [address] [place] [address] Social History Tobacco Use Types Packs/Day Years Used Date Smoking Tobacco: Never Assessed Comments Unknown Sex and Gender Information Value Date Recorded Sex Assigned at Not on file Legal Sex Female 3:09 AM LAWNMOWER MECHANIC Gender Identity Not on file Sexual Orientation Not on file documented as of this encounter Plan of Treatment Not on file documented as of this encounter Visit Diagnoses Not on filedocumented in this encounter Care Teams Full Time Paramedic Relationship Specialty Start Date End Date Epi French MD [address] [place] [phone] PCP - General Family Practice 09/29/10 documented as of this encounter
--- OUTSIDE RECORDS SUMMARY | 2025-01-03 07:47 | XMS_ITS | Encounter Summary ---
Author Organization [facility] Address [address] [place] [address] Care Team Providers Care Shopping Investigator Name Role Phone Epi French MD Primary Care Provider [phone] Encounter Details Date Type Department Care Team (Late st Contact Info) Description 12/28/2006 Outpatient Historical [facility] Pain Management Procedures [address] 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
--- OUTSIDE RECORDS SUMMARY | 2025-01-03 07:47 | XMS_ITS | Encounter Summary ---
Author Organization [facility] Address [address] [place] [address] Care Team Providers Care Student Services Rep Name Role Phone Epi French MD Primary Care Provider [phone] Encounter Details Date Type Department Care Team (Late st Contact Info) Description 12/12/2000 Outpatient Historical [facility] [address] [place] [phone] Social History Tobacco Use Types Packs/Day Years Used Date Smoking Tobacco: Never Assessed Comments Unknown Sex and Gender Information Value Date Recorded Sex Assigned at Not on file Legal Sex Female 3:09 AM PRECISION INSTRUMENT MAKER AND REPAIRER Gender Identity Not on file Sexual Orientation Not on file documented as of this encounter Plan of Treatment Not on file documented as of this encounter Visit Diagnoses Not on filedocumented in this encounter Care Teams Student Services Rep Relationship Specialty Start Date End Date Epi French MD [address] [place] [phone] PCP - General Family Practice 09/29/10 documented as of this encounter
--- OUTSIDE RECORDS SUMMARY | 2025-01-03 07:47 | XMS_ITS | Encounter Summary ---
Author Organization [facility] Address [address] [place] [address] Care Team Providers Care Capsule Filling Machine Operator Name Role Phone Epi French MD Primary Care Provider [phone] Encounter Details Date Type Department Care Team (Late st Contact Info) Description 07/13/2006 Outpatient Historical [facility] Pain Management Procedures [address] [place] [address] Cabrera Altamirano MD NO ADDRESS ON FILE Adjust Nerv Syst Device (Primary Dx) Social History Tobacco Use Types Packs/Day Years Used Date Smoking Tobacco: Never Assessed Comments Unknown Sex and Gender Information Value Date Recorded Sex Assigned at Not on file Legal Sex Female 3:09 AM CATERERS HELPER Gender Identity Not on file Sexual Orientation Not on file documented as of this encounter Plan of Treatment Not on file documented as of this encounter Visit Diagnoses Diagnosis Fitting and adjustment of other devices related to nervous system and special senses- Primary documented in this encounter Care Teams Capsule Filling Machine Operator Relationship Specialty Start Date End Date Epi French MD [address] [place] [phone] PCP - General Family Practice 09/29/10 documented as of this encounter
--- OUTSIDE RECORDS SUMMARY | 2025-01-03 07:47 | XMS_ITS | Encounter Summary ---
Author Organization [facility] Address [address] [place] [address] Care Team Providers Care Team Guide Name Role Phone Epi French MD Primary Care Provider [phone] Encounter Details Date Type Department Care Team (Late st Contact Info) Description 11/07/2000 Outpatient Historical [facility] [address] [place] [address] Social History Tobacco Use Types Packs/Day Years Used Date Smoking Tobacco: Never Assessed Comments Unknown Sex and Gender Information Value Date Recorded Sex Assigned at Not on file Legal Sex Female 3:09 AM PROSPECTING DRILLER HELPER Gender Identity Not on file Sexual Orientation Not on file documented as of this encounter Plan of Treatment Not on file documented as of this encounter Visit Diagnoses Not on filedocumented in this encounter Care Teams Team Guide Relationship Specialty Start Date End Date Epi French MD [address] [place] [phone] PCP - General Family Practice 09/29/10 documented as of this encounter
--- OUTSIDE RECORDS SUMMARY | 2025-01-03 07:47 | XMS_ITS | Encounter Summary ---
Author Organization [facility] Address [address] [place] [address] Care Team Providers Care Hurricane Tracker Name Role Phone Epi French MD Primary Care Provider Encounter Details Date Type Department Care Team (Late st Contact Info) Description 03/01/2002 Outpatient [facility] [address] [place] [address] Social History Tobacco Use Types Packs/Day Years Used Date Smoking Tobacco: Never Assessed Comments Unknown Sex and Gender Information Value Date Recorded Sex Assigned at Not on file Legal Sex Female 3:09 AM ROLL ICER MACHINE Gender Identity Not on file Sexual Orientation Not on file documented as of this encounter Plan of Treatment Not on file documented as of this encounter Visit Diagnoses Not on filedocumented in this encounter Care Teams Hurricane Tracker Relationship Specialty Start Date End Date Epi French MD [address] [place] [phone] PCP - General Family Practice 09/29/10 documented as of this encounter
--- OUTSIDE RECORDS SUMMARY | 2025-01-03 07:47 | XMS_ITS | Encounter Summary ---
Author Organization [facility] Address [address] [place] [address] Care Team Providers Care Process Laboratory Specialist Name Role Phone Epi French MD Primary Care Provider [phone] Encounter Details Date Type Department Care Team (Late st Contact Info) Description 03/29/2007 Outpatient Historical [facility] Pain Management Procedures [address] 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
--- OUTSIDE RECORDS SUMMARY | 2025-01-03 07:47 | XMS_ITS | Encounter Summary ---
Author Organization [facility] Address [address] [place] [address] Care Team Providers Care Detective Captain Name Role Phone Epi French MD Primary Care Provider [phone] Encounter Details Date Type Department Care Team (Latest Contact Info) Description 10/21/2004 Outpatient Historical [facility] Pain Management Procedures [address] [place] [address] Solomon Puga MD NO ADDRESS ON FILE FIT/ADJUST NERV/SENS SYSTEM DEVICE (Primary Dx) Social History Tobacco Use Types Packs/Day Years Used Date Smoking Tobacco: Never Assessed Comments Unknown Sex and Gender Information Value Date Recorded Sex Assigned at Not on file Legal Sex Female 3:09 AM SLITTING MACHINE OPERATOR HELPER Gender Identity Not on file Sexual Orientation Not on file documented as of this encounter Plan of Treatment Not on file documented as of this encounter Visit Diagnoses Diagnosis Fitting and adjustment of other devices related to nervous system and special senses- Primary documented in this encounter Care Teams Detective Captain Relationship Specialty Start Date End Date Epi French MD [address] [place] [phone] PCP - General Family Practice 09/29/10 documented as of this encounter
--- OUTSIDE RECORDS SUMMARY | 2025-01-03 07:47 | XMS_ITS | Encounter Summary ---
Author Organization [facility] Address [address] [place] [address] Care Team Providers Care Mission Support Specialist Name Role Phone Epi French MD Primary Care Provider [phone] Encounter Details Date Type Department Care Team (Late st Contact Info) Description 03/24/2005 Outpatient Historical [facility] Pain Management Procedures [address] 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
--- OUTSIDE RECORDS SUMMARY | 2025-01-03 07:47 | XMS_ITS | Encounter Summary ---
Author Organization [facility] Address [address] [place] [address] Care Team Providers Care Store Hand Name Role Phone Epi French MD Primary Care Provider [phone] Encounter Details Date Type Department Care Team (Late st Contact Info) Description 02/11/2005 Outpatient Historical [facility] Cabrera Altamirano MD NO ADDRESS ON FILE Social History Tobacco Use Types Packs/Day Years Used Date Smoking Tobacco: Never Assessed Comments Unknown Sex and Gender Information Value Date Recorded Sex Assigned at Not on file Legal Sex Female 3:09 AM CYLINDER CHECKER Gender Identity Not on file Sexual Orientation Not on file documented as of this encounter Plan of Treatment Not on file documented as of this encounter Visit Diagnoses Not on filedocumented in this encounter Care Teams Store Hand Relationship Specialty Start Date End Date Epi French MD [address] [place] [phone] PCP - General Family Practice 09/29/10 documented as of this encounter
--- OUTSIDE RECORDS SUMMARY | 2025-01-03 07:47 | XMS_ITS | Encounter Summary ---
Author Organization [facility] Address [address] [place] [address] Care Team Providers Care Scrub Nurse Name Role Phone Epi French MD Primary Care Provider [phone] Encounter Details Date Type Department Care Team (Late st Contact Info) Description 11/29/2004 Outpatient Historical [facility] Pain Management Procedures [address] [place] [address] Cabrera Altamirano MD NO ADDRESS ON FILE FIT/ADJUST NERV/SENS SYSTEM DEVICE (Primary Dx) Social History Tobacco Use Types Packs/Day Years Used Date Smoking Tobacco: Never Assessed Comments Unknown Sex and Gender Information Value Date Recorded Sex Assigned at Not on file Legal Sex Female 3:09 AM PHARMACY RESOURCE TECH Gender Identity Not on file Sexual Orientation Not on file documented as of this encounter Plan of Treatment Not on file documented as of this encounter Visit Diagnoses Diagnosis Fitting and adjustment of other devices related to nervous system and special senses- Primary documented in this encounter Care Teams Scrub Nurse Relationship Specialty Start Date End Date Epi French MD [address] [place] [phone] PCP - General Family Practice 09/29/10 documented as of this encounter
--- OUTSIDE RECORDS SUMMARY | 2025-01-03 07:47 | XMS_ITS | Encounter Summary ---
Author Organization [facility] Address [address] [place] [address] Care Team Providers Care Air Purifier Servicer Name Role Phone Epi French MD Primary Care Provider [phone] Encounter Details Date Type Department Care Team (Latest Contact Info) Description 03/15/2001 Outpatient Historical [facility] Regulo Cm MD [address] [place] [address] SICCA SYNDROME (Primary Dx); DYSHIDROSIS Social History Tobacco Use Types Packs/Day Years Used Date Smoking Tobacco: Never Assessed Comments Unknown Sex and Gender Information Value Date Recorded Sex Assigned at Not on file Legal Sex Female 3:09 AM MANAGER PMO Gender Identity Not on file Sexual Orientation Not on file documented as of this encounter Plan of Treatment Not on file documented as of this encounter Visit Diagnoses Diagnosis Sicca syndrome- Primary Dyshidrosis documented in this encounter Care Teams Air Purifier Servicer Relationship Specialty Start Date End Date Epi French MD [address] [place] [address] PCP - General Family Practice 09/29/10 documented as of this encounter
--- OUTSIDE RECORDS SUMMARY | 2025-01-03 07:47 | XMS_ITS | Encounter Summary ---
Author Organization [facility] Address [address] [place] [address] Care Team Providers Care Bellows Tester Name Role Phone Epi French MD Primary Care Provider [phone] Encounter Details Date Type Department Care Team (Late st Contact Info) Description 05/31/2006 Outpatient Historical [facility] Pain Management Procedures [address] [place] [address] Cabrera Altamirano MD NO ADDRESS ON FILE Adjust Nerv Syst Device (Primary Dx) Social History Tobacco Use Types Packs/Day Years Used Date Smoking Tobacco: Never Assessed Comments Unknown Sex and Gender Information Value Date Recorded Sex Assigned at Not on file Legal Sex Female 3:09 AM MALTED MILK MIXER Gender Identity Not on file Sexual Orientation Not on file documented as of this encounter Plan of Treatment Not on file documented as of this encounter Visit Diagnoses Diagnosis Fitting and adjustment of other devices related to nervous system and special senses- Primary documented in this encounter Care Teams Bellows Tester Relationship Specialty Start Date End Date Epi French MD [address] [place] [phone] PCP - General Family Practice 09/29/10 documented as of this encounter
--- OUTSIDE RECORDS SUMMARY | 2025-01-03 07:47 | XMS_ITS | Encounter Summary ---
Author Organization [facility] Address [address] [place] [address] Care Team Providers Care Audio Production Instructor Name Role Phone Epi French MD Primary Care Provider [phone] Encounter Details Date Type Department Care Team (Latest Contact Info) Description 03/01/2002 Outpatient Historical [facility] Multidisciplinary Chronic Pain [address] [place] [address] Solomon Puga MD NO ADDRESS ON FILE FIT/ADJUST NERV/SENS SYSTEM DEVICE (Primary Dx) Social History Tobacco Use Types Packs/Day Years Used Date Smoking Tobacco: Never Assessed Comments Unknown Sex and Gender Information Value Date Recorded Sex Assigned at Not on file Legal Sex Female 3:09 AM DECAL APPLIER Gender Identity Not on file Sexual Orientation Not on file documented as of this encounter Plan of Treatment Not on file documented as of this encounter Visit Diagnoses Diagnosis Fitting and adjustment of other devices related to nervous system and special senses- Primary documented in this encounter Care Teams Audio Production Instructor Relationship Specialty Start Date End Date Epi French MD [address] [place] [phone] PCP - General Family Practice 09/29/10 documented as of this encounter
--- OUTSIDE RECORDS SUMMARY | 2025-01-03 07:47 | XMS_ITS | Encounter Summary ---
Author Organization [facility] Address [address] [place] [address] Care Team Providers Care Ingot Buggy Operator Name Role Phone Epi French MD Primary Care Provider [phone] Encounter Details Date Type Department Care Team (Late st Contact Info) Description 05/29/2006 Outpatient Historical [facility] Pain Management Procedures [address] [place] [address] Cabrera Altamirano MD NO ADDRESS ON FILE Social History Tobacco Use Types Packs/Day Years Used Date Smoking Tobacco: Never Assessed Comments Unknown Sex and Gender Information Value Date Recorded Sex Assigned at Not on file Legal Sex Female 3:09 AM GRE INSTRUCTOR Gender Identity Not on file Sexual Orientation Not on file documented as of this encounter Plan of Treatment Not on file documented as of this encounter Visit Diagnoses Not on filedocumented in this encounter Care Teams Ingot Buggy Operator Relationship Specialty Start Date End Date Epi French MD [address] [place] [phone] PCP - General Family Practice 09/29/10 documented as of this encounter
--- OUTSIDE RECORDS SUMMARY | 2025-01-03 07:47 | XMS_ITS | Encounter Summary ---
Author Organization [facility] Address [address] [place] [address] Care Team Providers Care Notched Blade Loader Name Role Phone Epi French MD Primary Care Provider [phone] Encounter Details Date Type Department Care Team (Late st Contact Info) Description 11/16/2006 Outpatient Historical [facility] Pain Management Procedures [address] [place] [address] Cabrera Altamirano MD NO ADDRESS ON FILE Adjust Nerv Syst Device (Primary Dx) Social History Tobacco Use Types Packs/Day Years Used Date Smoking Tobacco: Never Assessed Comments Unknown Sex and Gender Information Value Date Recorded Sex Assigned at Not on file Legal Sex Female 3:09 AM MAITRE D' Gender Identity Not on file Sexual Orientation Not on file documented as of this encounter Plan of Treatment Not on file documented as of this encounter Visit Diagnoses Diagnosis Fitting and adjustment of other devices related to nervous system and special senses- Primary documented in this encounter Care Teams Notched Blade Loader Relationship Specialty Start Date End Date Epi French MD [address] [place] [phone] PCP - General Family Practice 09/29/10 documented as of this encounter
--- OUTSIDE RECORDS SUMMARY | 2025-01-03 07:47 | XMS_ITS | Encounter Summary ---
Author Organization [facility] Address [address] [place] [address] Care Team Providers Care Sales Assistant Displays Name Role Phone Epi French MD Primary Care Provider [phone] Encounter Details Date Type Department Care Team (Late st Contact Info) Description 08/23/2006 Outpatient Historical [facility] Pain Management Procedures [address] [place] [address] Cabrera Altamirano MD NO ADDRESS ON FILE Adjust Nerv Syst Device (Primary Dx) Social History Tobacco Use Types Packs/Day Years Used Date Smoking Tobacco: Never Assessed Comments Unknown Sex and Gender Information Value Date Recorded Sex Assigned at Not on file Legal Sex Female 3:09 AM PROCESS PROJECT ENGINEER Gender Identity Not on file Sexual Orientation Not on file documented as of this encounter Plan of Treatment Not on file documented as of this encounter Visit Diagnoses Diagnosis Fitting and adjustment of other devices related to nervous system and special senses- Primary documented in this encounter Care Teams Sales Assistant Displays Relationship Specialty Start Date End Date Epi French MD [address] [place] [phone] PCP - General Family Practice 09/29/10 documented as of this encounter
--- OUTSIDE RECORDS SUMMARY | 2025-01-03 07:47 | XMS_ITS | Encounter Summary ---
Author Organization [facility] Address [address] [place] [address] Care Team Providers Care Rum Processing Operator Name Role Phone Epi French MD Primary Care Provider Encounter Details Date Type Department Care Team (Latest Contact Info) Description 09/15/2004 Outpatient Historical [facility] Pain Management Procedures [address] [place] [address] Solomon Puga MD NO ADDRESS ON FILE FIT/ADJUST NERV/SENS SYSTEM DEVICE (Primary Dx) Social History Tobacco Use Types Packs/Day Years Used Date Smoking Tobacco: Never Assessed Comments Unknown Sex and Gender Information Value Date Recorded Sex Assigned at Not on file Legal Sex Female 3:09 AM INTELLECTUAL PROPERTY PARALEGAL Gender Identity Not on file Sexual Orientation Not on file documented as of this encounter Plan of Treatment Not on file documented as of this encounter Visit Diagnoses Diagnosis Fitting and adjustment of other devices related to nervous system and special senses- Primary documented in this encounter Care Teams Rum Processing Operator Relationship Specialty Start Date End Date Epi French MD [address] [place] [phone] PCP - General Family Practice 09/29/10 documented as of this encounter
--- OUTSIDE RECORDS SUMMARY | 2025-01-03 07:47 | XMS_ITS | Encounter Summary ---
Author Organization [facility] Address [address] [place] [address] Care Team Providers Care Radiotelegraph Operator Servicer Name Role Phone Epi French MD Primary Care Provider [phone] Encounter Details Date Type Department Care Team (Latest Contact Info) Description 04/25/2007 Outpatient Historical [facility] Pain Management Procedures [address] 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
--- OUTSIDE RECORDS SUMMARY | 2025-01-03 07:47 | XMS_ITS | Encounter Summary ---
Author Organization [facility] Address [address] [place] [address] Care Team Providers Care Sheet Pile Hammer Operator Name Role Phone Epi French MD Primary Care Provider [phone] Encounter Details Date Type Department Care Team (Late st Contact Info) Description 03/09/[address] [facility] [address] [place] [address] Social History Tobacco Use Types Packs/Day Years Used Date Smoking Tobacco: Never Assessed Comments Unknown Sex and Gender Information Value Date Recorded Sex Assigned at Not on file Legal Sex Female 3:09 AM UNIVERSITY RELATIONS RECRUITER Gender Identity Not on file Sexual Orientation Not on file documented as of this encounter Plan of Treatment Not on file documented as of this encounter Visit Diagnoses Not on filedocumented in this encounter Care Teams Sheet Pile Hammer Operator Relationship Specialty Start Date End Date Epi French MD [address] [place] [phone] PCP - General Family Practice 09/29/10 documented as of this encounter
--- OUTSIDE RECORDS SUMMARY | 2025-01-03 07:47 | XMS_ITS | Encounter Summary ---
Author Organization [facility] Address [address] [place] [address] Care Team Providers Care Electrophysiology Technologist Name Role Phone Epi French MD Primary Care Provider [phone] Encounter Details Date Type Department Care Team (Late st Contact Info) Description 09/13/2004 Outpatient Historical HIS CANCELLED ADMISSION Cabrera Altamirano MD NO ADDRESS ON FILE Social History Tobacco Use Types Packs/Day Years Used Date Smoking Tobacco: Never Assessed Comments Unknown Sex and Gender Information Value Date Recorded Sex Assigned at Not on file Legal Sex Female 3:09 AM BRICK CLEANER Gender Identity Not on file Sexual Orientation Not on file documented as of this encounter Plan of Treatment Not on file documented as of this encounter Visit Diagnoses Not on filedocumented in this encounter Care Teams Electrophysiology Technologist Relationship Specialty Start Date End Date Epi French MD [address] [place] [phone] PCP - General Family Practice 09/29/10 documented as of this encounter
--- OUTSIDE RECORDS SUMMARY | 2025-01-03 07:47 | XMS_ITS | Encounter Summary ---
Author Organization [facility] Address [address] [facility] Attn: [place] [address] Care Team Providers Care Soldering Machine Feeder Name Role Phone Epi French MD Primary Care Provider [phone] Encounter Details Date Type Department Care Team (Late st Contact Info) Description 03/15/2001 Outpatient Historical Regulo Cm MD [address] [place] [address] Social History Tobacco Use Types Packs/Day Years Used Date Smoking Tobacco: Never Assessed Comments Unknown Sex and Gender Information Value Date Recorded Sex Assigned at Not on file Legal Sex Female 3:09 AM RETAIL SEASONAL SPECIALIST Gender Identity Not on file Sexual Orientation Not on file documented as of this encounter Plan of Treatment Not on file documented as of this encounter Visit Diagnoses Not on filedocumented in this encounter Care Teams Soldering Machine Feeder Relationship Specialty Start Date End Date Epi French MD [address] [place] [phone] PCP - General Family Practice 09/29/10 documented as of this encounter
--- OUTSIDE RECORDS SUMMARY | 2025-01-03 07:47 | XMS_ITS | Encounter Summary ---
Author Organization [facility] Address [address] [place] [address] Care Team Providers Care Drier Operator Helper Name Role Phone Epi French MD Primary Care Provider [phone] Encounter Details Date Type Department Care Team (Late st Contact Info) Description 04/28/[address] [facility] Pain Management Procedures [address] [place] [address] Cabrera Altamirano MD NO ADDRESS ON FILE FIT/ADJUST NERV/SENS SYSTEM DEVICE (Primary Dx) Social History Tobacco Use Types Packs/Day Years Used Date Smoking Tobacco: Never Assessed Comments Unknown Sex and Gender Information Value Date Recorded Sex Assigned at Not on file Legal Sex Female 3:09 AM PIANO INSTRUCTOR Gender Identity Not on file Sexual Orientation Not on file documented as of this encounter Plan of Treatment Not on file documented as of this encounter Visit Diagnoses Diagnosis Fitting and adjustment of other devices related to nervous system and special senses- Primary documented in this encounter Care Teams Drier Operator Helper Relationship Specialty Start Date End Date Epi French MD [address] [phone] PCP - General Family Practice 09/29/10 documented as of this encounter
--- OUTSIDE RECORDS SUMMARY | 2025-01-03 07:47 | XMS_ITS | Encounter Summary ---
Author Organization [facility] Address [address] [place] [address] Care Team Providers Care Occupational Hygienist Name Role Phone Epi French MD Primary Care Provider [phone] Encounter Details Date Type Department Care Team (Late st Contact Info) Description 06/30/2005 Outpatient Historical [facility] Pain Management Procedures [address] [place] [address] Cabrera Altamirano MD NO ADDRESS ON FILE Adjust Nerv Syst Device (Primary Dx) Social History Tobacco Use Types Packs/Day Years Used Date Smoking Tobacco: Never Assessed Comments Unknown Sex and Gender Information Value Date Recorded Sex Assigned at Not on file Legal Sex Female 3:09 AM AUTOMATIC FANCY MACHINE OPERATOR Gender Identity Not on file Sexual Orientation Not on file documented as of this encounter Plan of Treatment Not on file documented as of this encounter Visit Diagnoses Diagnosis Fitting and adjustment of other devices related to nervous system and special senses- Primary documented in this encounter Care Teams Occupational Hygienist Relationship Specialty Start Date End Date Epi French MD [address] [place] [phone] PCP - General Family Practice 09/29/10 documented as of this encounter
--- OUTSIDE RECORDS SUMMARY | 2025-01-03 07:47 | XMS_ITS | Encounter Summary ---
Author Organization [facility] Address [address] [place] [address] Care Team Providers Care Commercial Development Manager Name Role Phone Epi French MD Primary Care Provider [phone] Encounter Details Date Type Department Care Team (Late st Contact Info) Description 06/02/2005 Outpatient Historical [facility] Pain Management Procedures [address] [place] [address] Cabrera Altamirano MD NO ADDRESS ON FILE Adjust Nerv Syst Device (Primary Dx) Social History Tobacco Use Types Packs/Day Years Used Date Smoking Tobacco: Never Assessed Comments Unknown Sex and Gender Information Value Date Recorded Sex Assigned at Not on file Legal Sex Female 3:09 AM FLUTE POLISHER Gender Identity Not on file Sexual Orientation Not on file documented as of this encounter Plan of Treatment Not on file documented as of this encounter Visit Diagnoses Diagnosis Fitting and adjustment of other devices related to nervous system and special senses- Primary documented in this encounter Care Teams Commercial Development Manager Relationship Specialty Start Date End Date Epi French MD [address] [place] [phone] PCP - General Family Practice 09/29/10 documented as of this encounter
--- OUTSIDE RECORDS SUMMARY | 2025-01-03 07:48 | XMS_ITS | Encounter Summary ---
Author Organization [facility] Address [address] [place] [address] Care Team Providers Care Day Habilitation Supervisor Name Role Phone Epi French MD Primary Care Provider [phone] Encounter Details Date Type Department Care Team (Latest Contact Info) Description 07/31/2003 Outpatient Historical [facility] Pain Management Procedures [address] 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
--- OUTSIDE RECORDS SUMMARY | 2025-01-03 07:48 | XMS_ITS | Encounter Summary ---
Author Organization [facility] Address [address] [place] [address] Care Team Providers Care Fiber Optic Technician Name Role Phone Epi French MD Primary Care Provider [phone] Encounter Details Date Type Department Care Team (Latest Contact Info) Description 09/04/2003 Outpatient Historical [facility] Pain Management Procedures [address] [place] [address] Danny Knowles MD NO ADDRESS ON FILE FIT/ADJUST NERV/SENS SYSTEM DEVICE (Primary Dx) Social History Tobacco Use Types Packs/Day Years Used Date Smoking Tobacco: Never Assessed Comments Unknown Sex and Gender Information Value Date Recorded Sex Assigned at Not on file Legal Sex Female 3:09 AM CONTRACTING EXECUTIVE Gender Identity Not on file Sexual Orientation Not on file documented as of this encounter Plan of Treatment Not on file documented as of this encounter Visit Diagnoses Diagnosis Fitting and adjustment of other devices related to nervous system and special senses- Primary documented in this encounter Care Teams Fiber Optic Technician Relationship Specialty Start Date End Date Epi French MD [address] [place] [phone] PCP - General Family Practice 09/29/10 documented as of this encounter
--- OUTSIDE RECORDS SUMMARY | 2025-01-03 07:48 | XMS_ITS | Encounter Summary ---
Author Organization [facility] Address [address] [place] [address] Care Team Providers Care Historic Sites Supervisor Name Role Phone Epi French MD Primary Care Provider [phone] Encounter Details Date Type Department Care Team (Latest Contact Info) Description 06/25/2003 Outpatient Historical [facility] Pain Management Procedures [address] [place] [address] Solomon Puga MD NO ADDRESS ON FILE FIT/ADJUST NERV/SENS SYSTEM DEVICE (Primary Dx) Social History Tobacco Use Types Packs/Day Years Used Date Smoking Tobacco: Never Assessed Comments Unknown Sex and Gender Information Value Date Recorded Sex Assigned at Not on file Legal Sex Female 3:09 AM CONSTRUCTION JOB TITLES Gender Identity Not on file Sexual Orientation Not on file documented as of this encounter Plan of Treatment Not on file documented as of this encounter Visit Diagnoses Diagnosis Fitting and adjustment of other devices related to nervous system and special senses- Primary documented in this encounter Care Teams Historic Sites Supervisor Relationship Specialty Start Date End Date Epi French MD [address] [place] [phone] PCP - General Family Practice 09/29/10 documented as of this encounter
--- OUTSIDE RECORDS SUMMARY | 2025-01-03 07:48 | XMS_ITS | Encounter Summary ---
Author Organization [facility] Address [address] [place] [address] Care Team Providers Care Network Relay Tester Name Role Phone Epi French MD Primary Care Provider [phone] Encounter Details Date Type Department Care Team (Late st Contact Info) Description 03/21/2007 Outpatient Historical [facility] Pain Management Procedures [address] [place] [address] Cabrera Altamirano MD NO ADDRESS ON FILE Social History Tobacco Use Types Packs/Day Years Used Date Smoking Tobacco: Never Assessed Comments Unknown Sex and Gender Information Value Date Recorded Sex Assigned at Not on file Legal Sex Female 3:09 AM SURGICAL AIDE Gender Identity Not on file Sexual Orientation Not on file documented as of this encounter Plan of Treatment Not on file documented as of this encounter Visit Diagnoses Not on filedocumented in this encounter Care Teams Network Relay Tester Relationship Specialty Start Date End Date Epi French MD [address] [place] [phone] PCP - General Family Practice 09/29/10 documented as of this encounter
--- OUTSIDE RECORDS SUMMARY | 2025-01-03 07:48 | XMS_ITS | Encounter Summary ---
Author Organization [facility] Address [address] [place] [address] Care Team Providers Care Temperature Regulator Pyrometer Name Role Phone Epi French MD Primary Care Provider [phone] Encounter Details Date Type Department Care Team (Late st Contact Info) Description 05/24/2004 Outpatient Historical [facility] [address] [place] [address] Ele Issa, MASSIEL [address] [place] [address] [address] [place] [phone] Social History Tobacco Use Types Packs/Day Years Used Date Smoking Tobacco: Never Assessed Comments Unknown Sex and Gender Information Value Date Recorded Sex Assigned at Not on file Legal Sex Female 3:09 AM CHALKER SOLES Gender Identity Not on file Sexual Orientation Not on file documented as of this encounter Plan of Treatment Not on file documented as of this encounter Visit Diagnoses Not on filedocumented in this encounter Care Teams Temperature Regulator Pyrometer Relationship Specialty Start Date End Date Epi French MD [address] [place] [phone] PCP - General Family Practice 09/29/10 documented as of this encounter
--- OUTSIDE RECORDS SUMMARY | 2025-01-03 07:48 | XMS_ITS | Encounter Summary ---
Author Organization [facility] Address [address] [place] [address] Care Team Providers Care Uc Architect Name Role Phone Epi French MD Primary Care Provider [phone] Encounter Details Date Type Department Care Team (Late st Contact Info) Description 01/31/2007 Inpatient Historical [facility] Pain Management Procedures [address] 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
--- OUTSIDE RECORDS SUMMARY | 2025-01-03 07:48 | XMS_ITS | Encounter Summary ---
Author Organization [facility] Address [address] [place] [address] Care Team Providers Care Beam Sealer Name Role Phone Epi French MD Primary Care Provider [phone] Encounter Details Date Type Department Care Team (Late st Contact Info) Description 11/20/[address] [facility] Pain Management Procedures [address] 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
--- OUTSIDE RECORDS SUMMARY | 2025-01-03 07:48 | XMS_ITS | Encounter Summary ---
Author Organization [facility] Address [address] [place] [address] Care Team Providers Care Vocational Nurse Name Role Phone Epi French MD Primary Care Provider [phone] Encounter Details Date Type Department Care Team (Latest Contact Info) Description 10/13/2003 Outpatient Historical [facility] Pain Management Procedures [address] [place] [address] Danny Knowles MD NO ADDRESS ON FILE FIT/ADJUST NERV/SENS SYSTEM DEVICE (Primary Dx) Social History Tobacco Use Types Packs/Day Years Used Date Smoking Tobacco: Never Assessed Comments Unknown Sex and Gender Information Value Date Recorded Sex Assigned at Not on file Legal Sex Female 3:09 AM CLERK TRAVEL RESERVATIONS Gender Identity Not on file Sexual Orientation Not on file documented as of this encounter Plan of Treatment Not on file documented as of this encounter Visit Diagnoses Diagnosis Fitting and adjustment of other devices related to nervous system and special senses- Primary documented in this encounter Care Teams Vocational Nurse Relationship Specialty Start Date End Date Epi French MD [address] [place] [phone] PCP - General Family Practice 09/29/10 documented as of this encounter
--- OUTSIDE RECORDS SUMMARY | 2025-01-03 07:48 | XMS_ITS | Encounter Summary ---
Author Organization [facility] Address [address] [place] [address] Care Team Providers Care Tailor Women'S Garment Alteration Name Role Phone Epi French MD Primary Care Provider [phone] Encounter Details Date Type Department Care Team (Latest Contact Info) Description 05/24/2004 Outpatient Historical [facility] [address] [place] [address] Ele Issa, DISABILITY INSURANCE CLAIM EXAMINER [address] [facility] [address] [place] [address] REFLEX SYMPATH DYSTRPHY LOWER LIMB (Primary Dx) Social History Tobacco Use Types Packs/Day Years Used Date Smoking Tobacco: Never Assessed Comments Unknown Sex and Gender Information Value Date Recorded Sex Assigned at Not on file Legal Sex Female 3:09 AM DRAG OUT WORKER Gender Identity Not on file Sexual Orientation Not on file documented as of this encounter Plan of Treatment Not on file documented as of this encounter Visit Diagnoses Diagnosis 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
--- OUTSIDE RECORDS SUMMARY | 2025-01-03 07:48 | XMS_ITS | Encounter Summary ---
Author Organization [facility] Address [address] [place] [address] Care Team Providers Care Child Life Therapist Name Role Phone Epi French MD Primary Care Provider [phone] Encounter Details Date Type Department Care Team (Late st Contact Info) Description 02/04/2003 Outpatient Historical [facility] Pain Management Procedures [address] [place] [address] Cabrera Altamirano MD NO ADDRESS ON FILE FIT/ADJUST NERV/SENS SYSTEM DEVICE (Primary Dx) Social History Tobacco Use Types Packs/Day Years Used Date Smoking Tobacco: Never Assessed Comments Unknown Sex and Gender Information Value Date Recorded Sex Assigned at Not on file Legal Sex Female 3:09 AM LEAN LEADER Gender Identity Not on file Sexual Orientation Not on file documented as of this encounter Plan of Treatment Not on file documented as of this encounter Visit Diagnoses Diagnosis Fitting and adjustment of other devices related to nervous system and special senses- Primary documented in this encounter Care Teams Child Life Therapist Relationship Specialty Start Date End Date Epi French MD [address] [place] [phone] PCP - General Family Practice 09/29/10 documented as of this encounter
--- OUTSIDE RECORDS SUMMARY | 2025-01-03 07:48 | XMS_ITS | Encounter Summary ---
Author Organization [facility] Address [address] [place] [address] Care Team Providers Care Curriculum Specialist Name Role Phone Epi French MD Primary Care Provider [phone] Encounter Details Date Type Department Care Team (Late st Contact Info) Description 02/05/2001 Outpatient Historical [facility] [address] [place] [address] Social History Tobacco Use Types Packs/Day Years Used Date Smoking Tobacco: Never Assessed Comments Unknown Sex and Gender Information Value Date Recorded Sex Assigned at Not on file Legal Sex Female 3:09 AM GRADUATE FELLOW Gender Identity Not on file Sexual Orientation Not on file documented as of this encounter Plan of Treatment Not on file documented as of this encounter Visit Diagnoses Not on filedocumented in this encounter Care Teams Curriculum Specialist Relationship Specialty Start Date End Date Epi French MD [address] [place] [phone] PCP - General Family Practice 09/29/10 documented as of this encounter
--- OUTSIDE RECORDS SUMMARY | 2025-01-03 07:48 | XMS_ITS | Encounter Summary ---
Author Organization [facility] Address [address] [place] [address] Care Team Providers Care Hydraulic Elevator Constructor Name Role Phone Epi French MD Primary Care Provider [phone] Encounter Details Date Type Department Care Team (Late st Contact Info) Description 01/18/2001 Outpatient [facility] [address] [place] [address] Social History Tobacco Use Types Packs/Day Years Used Date Smoking Tobacco: Never Assessed Comments Unknown Sex and Gender Information Value Date Recorded Sex Assigned at Not on file Legal Sex Female 3:09 AM GERMAN TUTOR Gender Identity Not on file Sexual Orientation Not on file documented as of this encounter Plan of Treatment Not on file documented as of this encounter Visit Diagnoses Not on filedocumented in this encounter Care Teams Hydraulic Elevator Constructor Relationship Specialty Start Date End Date Epi French MD [address] [place] [phone] PCP - General Family Practice 09/29/10 documented as of this encounter
--- OUTSIDE RECORDS SUMMARY | 2025-01-03 07:48 | XMS_ITS | Encounter Summary ---
Author Organization [facility] Address [address] [place] [address] Care Team Providers Care Industrial Twisting Machine Operator Name Role Phone Epi French MD Primary Care Provider [phone] Encounter Details Date Type Department Care Team (Latest Contact Info) Description 05/19/2003 Outpatient Historical [facility] Pain Management Procedures [address] [place] [address] Solomon Puga MD NO ADDRESS ON FILE FIT/ADJUST NERV/SENS SYSTEM DEVICE (Primary Dx) Social History Tobacco Use Types Packs/Day Years Used Date Smoking Tobacco: Never Assessed Comments Unknown Sex and Gender Information Value Date Recorded Sex Assigned at Not on file Legal Sex Female 3:09 AM TAPE CONTROLLED MACHINE STITCHER Gender Identity Not on file Sexual Orientation Not on file documented as of this encounter Plan of Treatment Not on file documented as of this encounter Visit Diagnoses Diagnosis Fitting and adjustment of other devices related to nervous system and special senses- Primary documented in this encounter Care Teams Industrial Twisting Machine Operator Relationship Specialty Start Date End Date Epi French MD [address] [place] [phone] PCP - General Family Practice 09/29/10 documented as of this encounter
--- OUTSIDE RECORDS SUMMARY | 2025-01-03 07:48 | XMS_ITS | Encounter Summary ---
Author Organization [facility] Address [address] [place] [address] Care Team Providers Care Engine Dispatcher Name Role Phone Epi French MD Primary Care Provider [phone] Encounter Details Date Type Department Care Team (Late st Contact Info) Description 03/12/2003 Outpatient Historical [facility] Pain Management Procedures [address] [place] [address] Cabrera Altamirano MD NO ADDRESS ON FILE FIT/ADJUST NERV/SENS SYSTEM DEVICE (Primary Dx) Social History Tobacco Use Types Packs/Day Years Used Date Smoking Tobacco: Never Assessed Comments Unknown Sex and Gender Information Value Date Recorded Sex Assigned at Not on file Legal Sex Female 3:09 AM SCREENING TECHNICIAN Gender Identity Not on file Sexual Orientation Not on file documented as of this encounter Plan of Treatment Not on file documented as of this encounter Visit Diagnoses Diagnosis Fitting and adjustment of other devices related to nervous system and special senses- Primary documented in this encounter Care Teams Engine Dispatcher Relationship Specialty Start Date End Date Epi French MD [address] [place] [phone] PCP - General Family Practice 09/29/10 documented as of this encounter
--- OUTSIDE RECORDS SUMMARY | 2025-01-03 07:48 | XMS_ITS | Encounter Summary ---
Author Organization [facility] Address [address] [place] [address] Care Team Providers Care Administrative Services Director Name Role Phone Epi French MD Primary Care Provider [phone] Encounter Details Date Type Department Care Team (Latest Contact Info) Description 01/02/2001 Outpatient Historical [facility] Keaton Foster MD [address], [place] [id number] VACCINE FOR INFLUENZA (Primary Dx) Social History Tobacco Use Types Packs/Day Years Used Date Smoking Tobacco: Never Assessed Comments Unknown Sex and Gender Information Value Date Recorded Sex Assigned at Not on file Legal Sex Female 3:09 AM BIOMEDICAL EQUIPMENT SUPPORT SPECIALIST Gender Identity Not on file Sexual Orientation Not on file documented as of this encounter Plan of Treatment Not on file documented as of this encounter Visit Diagnoses Diagnosis Need vaccination-viral disease- Primary Need for prophylactic vaccination and inoculation against other viral diseases documented in this encounter Care Teams Administrative Services Director Relationship Specialty Start Date End Date Epi French MD [address] [place] [phone] PCP - General Family Practice 09/29/10 documented as of this encounter
--- OUTSIDE RECORDS SUMMARY | 2025-01-03 07:48 | XMS_ITS | Encounter Summary ---
Author Organization [facility] Address [address] [place] [address] Care Team Providers Care Service Parts Driver Name Role Phone Epi French MD Primary Care Provider [phone] Encounter Details Date Type Department Care Team (Latest Contact Info) Description 05/24/2004 Outpatient Historical [facility] Pain Management Procedures [address] [place] [address] Ele Issa, MASSIEL [facility] [address] [place] [address] FIT/ADJUST NERV/SENS SYSTEM DEVICE (Primary Dx) Social History Tobacco Use Types Packs/Day Years Used Date Smoking Tobacco: Never Assessed Comments Unknown Sex and Gender Information Value Date Recorded Sex Assigned at Not on file Legal Sex Female 3:09 AM HAND ICER Gender Identity Not on file Sexual Orientation Not on file documented as of this encounter Plan of Treatment Not on file documented as of this encounter Visit Diagnoses Diagnosis Fitting and adjustment of other devices related to nervous system and special senses- Primary documented in this encounter Care Teams Service Parts Driver Relationship Specialty Start Date End Date Epi French MD [address] [place] [phone] PCP - General Family Practice 09/29/10 documented as of this encounter
--- OUTSIDE RECORDS SUMMARY | 2025-01-03 07:48 | XMS_ITS | Encounter Summary ---
Author Organization [facility] Address [address] [place] [address] Care Team Providers Care Press Feeder Name Role Phone Epi French MD Primary Care Provider [phone] Encounter Details Date Type Department Care Team (Latest Contact Info) Description 12/29/[address] [facility] Pain Management Procedures [address] [place] [address] Danny Knowles MD NO ADDRESS ON FILE FIT/ADJUST NERV/SENS SYSTEM DEVICE (Primary Dx) Social History Tobacco Use Types Packs/Day Years Used Date Smoking Tobacco: Never Assessed Comments Unknown Sex and Gender Information Value Date Recorded Sex Assigned at Not on file Legal Sex Female 3:09 AM MEDICAL RESEARCH ASSISTANT Gender Identity Not on file Sexual Orientation Not on file documented as of this encounter Plan of Treatment Not on file documented as of this encounter Visit Diagnoses Diagnosis Fitting and adjustment of other devices related to nervous system and special senses- Primary documented in this encounter Care Teams Press Feeder Relationship Specialty Start Date End Date Epi French MD [address] [place] [phone] PCP - General Family Practice 09/29/10 documented as of this encounter
--- OUTSIDE RECORDS SUMMARY | 2025-01-03 07:48 | XMS_ITS | Encounter Summary ---
Author Organization [facility] Address [address] [place] [address] Care Team Providers Care Arboriculture Teacher Name Role Phone Epi French MD Primary Care Provider [phone] Encounter Details Date Type Department Care Team (Latest Contact Info) Description 10/13/2000 Outpatient Historical [facility] Jay Perales NO ADDRESS ON FILE Esophageal reflux (Primary Dx); Contact dermatitis and other eczema, due to unspecified cause Social History Tobacco Use Types Packs/Day Years Used Date Smoking Tobacco: Never Assessed Comments Unknown Sex and Gender Information Value Date Recorded Sex Assigned at Not on file Legal Sex Female 3:09 AM WASHER REPAIRMAN Gender Identity Not on file Sexual Orientation Not on file documented as of this encounter Plan of Treatment Not on file documented as of this encounter Visit Diagnoses Diagnosis Esophageal reflux- Primary Contact dermatitis and other eczema, due to unspecified cause documented in this encounter Care Teams Arboriculture Teacher Relationship Specialty Start Date End Date Epi French MD [address] [place] [phone] PCP - General Family Practice 09/29/10 documented as of this encounter
--- OUTSIDE RECORDS SUMMARY | 2025-01-03 07:48 | XMS_ITS | Encounter Summary ---
Author Organization [facility] Address [address] [place] [address] Care Team Providers Care Hand Silvering Supervisor Name Role Phone Epi French MD Primary Care Provider [phone] Encounter Details Date Type Department Care Team (Late st Contact Info) Description 01/01/2001 Outpatient [facility] [address] [place] [address] Social History Tobacco Use Types Packs/Day Years Used Date Smoking Tobacco: Never Assessed Comments Unknown Sex and Gender Information Value Date Recorded Sex Assigned at Not on file Legal Sex Female 3:09 AM FINISHED GOODS PLANNER Gender Identity Not on file Sexual Orientation Not on file documented as of this encounter Plan of Treatment Not on file documented as of this encounter Visit Diagnoses Not on filedocumented in this encounter Care Teams Hand Silvering Supervisor Relationship Specialty Start Date End Date Epi French MD [address] [place] [phone] PCP - General Family Practice 09/29/10 documented as of this encounter
--- OUTSIDE RECORDS SUMMARY | 2025-01-03 07:48 | XMS_ITS | Encounter Summary ---
Author Organization [facility] Address [address] [place] [address] Care Team Providers Care Doctor Assistant Name Role Phone Epi French MD Primary Care Provider [phone] Encounter Details Date Type Department Care Team (Late st Contact Info) Description 04/16/2003 Outpatient Historical [facility] Pain Management Procedures [address] [place] [address] Cabrera Altamirano MD NO ADDRESS ON FILE FIT/ADJUST NERV/SENS SYSTEM DEVICE (Primary Dx) Social History Tobacco Use Types Packs/Day Years Used Date Smoking Tobacco: Never Assessed Comments Unknown Sex and Gender Information Value Date Recorded Sex Assigned at Not on file Legal Sex Female 3:09 AM SMALL PARTS SHAPER OPERATOR Gender Identity Not on file Sexual Orientation Not on file documented as of this encounter Plan of Treatment Not on file documented as of this encounter Visit Diagnoses Diagnosis Fitting and adjustment of other devices related to nervous system and special senses- Primary documented in this encounter Care Teams Doctor Assistant Relationship Specialty Start Date End Date Epi French MD [address] [place] [phone] PCP - General Family Practice 09/29/10 documented as of this encounter
--- OUTSIDE RECORDS SUMMARY | 2025-01-03 07:49 | XMS_ITS | Encounter Summary ---
Author Organization [facility] Address [address] [place] [address] Care Team Providers Care Perioperative Tech Name Role Phone Epi French MD Primary Care Provider [phone] Encounter Details Date Type Department Care Team (Late st Contact Info) Description 07/01/2004 Outpatient Historical [facility] Pain Management Procedures [address] [place] [address] Cabrera Altamirano MD NO ADDRESS ON FILE FIT/ADJUST NERV/SENS SYSTEM DEVICE (Primary Dx) Social History Tobacco Use Types Packs/Day Years Used Date Smoking Tobacco: Never Assessed Comments Unknown Sex and Gender Information Value Date Recorded Sex Assigned at Not on file Legal Sex Female 3:09 AM TRACTOR TRAILER DRIVER Gender Identity Not on file Sexual Orientation Not on file documented as of this encounter Plan of Treatment Not on file documented as of this encounter Visit Diagnoses Diagnosis Fitting and adjustment of other devices related to nervous system and special senses- Primary documented in this encounter Care Teams Perioperative Tech Relationship Specialty Start Date End Date Epi French MD [address] [place] [phone] PCP - General Family Practice 09/29/10 documented as of this encounter
--- OUTSIDE RECORDS SUMMARY | 2025-01-03 07:49 | XMS_ITS | Encounter Summary ---
Author Organization [facility] Address [address] [place] [address] Care Team Providers Care Investment Fund Manager Name Role Phone Epi French MD Primary Care Provider [phone] Encounter Details Date Type Department Care Team (Latest Contact Info) Description 01/30/2006 Outpatient Historical [facility] Pain Management Procedures [address] 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
--- OUTSIDE RECORDS SUMMARY | 2025-01-03 07:49 | XMS_ITS | Encounter Summary ---
Author Organization [facility] Address [address] [place] [address] Care Team Providers Care Processing Technologist Name Role Phone Epi French MD Primary Care Provider [phone] Encounter Details Date Type Department Care Team (Late st Contact Info) Description 03/07/2006 Outpatient Historical [facility] Pain Management Procedures [address] [place] [address] Cabrera Altamirano MD NO ADDRESS ON FILE Adjust Nerv Syst Device (Primary Dx) Social History Tobacco Use Types Packs/Day Years Used Date Smoking Tobacco: Never Assessed Comments Unknown Sex and Gender Information Value Date Recorded Sex Assigned at Not on file Legal Sex Female 3:09 AM SEALER SANDER Gender Identity Not on file Sexual Orientation Not on file documented as of this encounter Plan of Treatment Not on file documented as of this encounter Visit Diagnoses Diagnosis Fitting and adjustment of other devices related to nervous system and special senses- Primary documented in this encounter Care Teams Processing Technologist Relationship Specialty Start Date End Date Epi French MD [address] [place] [phone] PCP - General Family Practice 09/29/10 documented as of this encounter
--- OUTSIDE RECORDS SUMMARY | 2025-01-03 07:49 | XMS_ITS | Encounter Summary ---
Author Organization [facility] Address [address] [place] [address] Care Team Providers Care Mine Engineering Superintendent Name Role Phone Epi French MD Primary Care Provider [phone] Encounter Details Date Type Department Care Team (Latest Contact Info) Description 08/06/2004 Outpatient Historical [facility] Pain Management Procedures [address] [place] [address] Solomon Puga MD NO ADDRESS ON FILE FIT/ADJUST NERV/SENS SYSTEM DEVICE (Primary Dx) Social History Tobacco Use Types Packs/Day Years Used Date Smoking Tobacco: Never Assessed Comments Unknown Sex and Gender Information Value Date Recorded Sex Assigned at Not on file Legal Sex Female 3:09 AM DISTRIBUTING CLERK Gender Identity Not on file Sexual Orientation Not on file documented as of this encounter Plan of Treatment Not on file documented as of this encounter Visit Diagnoses Diagnosis Fitting and adjustment of other devices related to nervous system and special senses- Primary documented in this encounter Care Teams Mine Engineering Superintendent Relationship Specialty Start Date End Date Epi French MD [address] [place] [phone] PCP - General Family Practice 09/29/10 documented as of this encounter
--- OUTSIDE RECORDS SUMMARY | 2025-01-03 07:49 | XMS_ITS | Encounter Summary ---
Author Organization [facility] Address [address] [place] [address] Care Team Providers Care Shank Threader Name Role Phone Epi French MD Primary Care Provider [phone] Encounter Details Date Type Department Care Team (Late st Contact Info) Description 12/26/2005 Outpatient Historical [facility] Pain Management Procedures [address] [place] [address] Cabrera Altamirano MD NO ADDRESS ON FILE Adjust Nerv Syst Device (Primary Dx) Social History Tobacco Use Types Packs/Day Years Used Date Smoking Tobacco: Never Assessed Comments Unknown Sex and Gender Information Value Date Recorded Sex Assigned at Not on file Legal Sex Female 3:09 AM TINT LAYER Gender Identity Not on file Sexual Orientation Not on file documented as of this encounter Plan of Treatment Not on file documented as of this encounter Visit Diagnoses Diagnosis Fitting and adjustment of other devices related to nervous system and special senses- Primary documented in this encounter Care Teams Shank Threader Relationship Specialty Start Date End Date Epi French MD [address] [place] [phone] PCP - General Family Practice 09/29/10 documented as of this encounter
--- OUTSIDE RECORDS SUMMARY | 2025-01-03 07:49 | XMS_ITS | Encounter Summary ---
Author Organization [facility] Address [address] [place] [address] Care Team Providers Care Cisco Certified Network Professional Name Role Phone Epi French MD Primary Care Provider [phone] Encounter Details Date Type Department Care Team (Late st Contact Info) Description 04/17/2006 Outpatient Historical [facility] Pain Management Procedures [address] [place] [address] Cabrera Altamirano MD NO ADDRESS ON FILE Adjust Nerv Syst Device (Primary Dx) Social History Tobacco Use Types Packs/Day Years Used Date Smoking Tobacco: Never Assessed Comments Unknown Sex and Gender Information Value Date Recorded Sex Assigned at Not on file Legal Sex Female 3:09 AM MEDICAL SALES Gender Identity Not on file Sexual Orientation Not on file documented as of this encounter Plan of Treatment Not on file documented as of this encounter Visit Diagnoses Diagnosis Fitting and adjustment of other devices related to nervous system and special senses- Primary documented in this encounter Care Teams Cisco Certified Network Professional Relationship Specialty Start Date End Date Epi French MD [address] [phone] PCP - General Family Practice 09/29/10 documented as of this encounter
--- OUTSIDE RECORDS SUMMARY | 2025-01-03 07:49 | XMS_ITS | Encounter Summary ---
Author Organization [facility] Address [address] [place] [address] Care Team Providers Care Gas Turbine Assembler Name Role Phone Epi French MD Primary Care Provider [phone] Encounter Details Date Type Department Care Team (Late st Contact Info) Description 02/04/2004 Outpatient Historical [facility] [address] [place] [address] Cabrera Altamirano MD NO ADDRESS ON FILE BACKACHE NOS (Primary Dx) Social History Tobacco Use Types Packs/Day Years Used Date Smoking Tobacco: Never Assessed Comments Unknown Sex and Gender Information Value Date Recorded Sex Assigned at Not on file Legal Sex Female 3:09 AM DISTRICT SERVICE MANAGER Gender Identity Not on file Sexual Orientation Not on file documented as of this encounter Plan of Treatment Not on file documented as of this encounter Visit Diagnoses Diagnosis Backache, unspecified- Primary documented in this encounter Care Teams Gas Turbine Assembler Relationship Specialty Start Date End Date Epi French MD [address] [place] [phone] PCP - General Family Practice 09/29/10 documented as of this encounter
--- OUTSIDE RECORDS SUMMARY | 2025-01-03 07:49 | XMS_ITS | Encounter Summary ---
Author Organization [employer] [facility] Address [address] [place] [address] Care Team Providers Care Vba Programmer Name Role Phone Epi French MD Primary Care Provider [phone] Encounter Details Date Type Department Care Team (Latest Contact Info) Description 02/04/2004 Outpatient Historical [facility] Pain Management Procedures [address] [place] [address] Solomon Puga MD NO ADDRESS ON FILE FIT/ADJUST NERV/SENS SYSTEM DEVICE (Primary Dx) Social History Tobacco Use Types Packs/Day Years Used Date Smoking Tobacco: Never Assessed Comments Unknown Sex and Gender Information Value Date Recorded Sex Assigned at Not on file Legal Sex Female 3:09 AM WEB OPERATIONS SPECIALIST Gender Identity Not on file Sexual Orientation Not on file documented as of this encounter Plan of Treatment Not on file documented as of this encounter Visit Diagnoses Diagnosis Fitting and adjustment of other devices related to nervous system and special senses- Primary documented in this encounter Care Teams Vba Programmer Relationship Specialty Start Date End Date Epi French MD [address] [place] [phone] PCP - General Family Practice 09/29/10 documented as of this encounter
--- OUTSIDE RECORDS SUMMARY | 2025-01-03 07:49 | XMS_ITS | Encounter Summary ---
Author Organization [facility] Address [address] [place] [address] Care Team Providers Care Associate Manager Affiliate Marketing Name Role Phone Epi French MD Primary Care Provider [phone] Encounter Details Date Type Department Care Team (Late st Contact Info) Description 2005 Outpatient Historical [facility] Pain Management Procedures [address] [place] [address] Cabrera Altamirano MD NO ADDRESS ON FILE Social History Tobacco Use Types Packs/Day Years Used Date Smoking Tobacco: Never Assessed Comments Unknown Sex and Gender Information Value Date Recorded Sex Assigned at Not on file Legal Sex Female 3:09 AM SUPERVISOR BEATER ROOM Gender Identity Not on file Sexual Orientation Not on file documented as of this encounter Plan of Treatment Not on file documented as of this encounter Visit Diagnoses Not on filedocumented in this encounter Care Teams Associate Manager Affiliate Marketing Relationship Specialty Start Date End Date Epi French MD [address] [place] [phone] PCP - General Family Practice 09/29/10 documented as of this encounter
--- OUTSIDE RECORDS SUMMARY | 2025-01-03 07:49 | XMS_ITS | Encounter Summary ---
Author Organization [facility] Address [address] [place] [address] Care Team Providers Care Director Industrial Relations Name Role Phone Epi French MD Primary Care Provider [phone] Encounter Details Date Type Department Care Team (Late st Contact Info) Description 04/16/2004 Outpatient Historical [facility] Pain Management Procedures [address] [place] [address] Cabrera Altamirano MD NO ADDRESS ON FILE FIT/ADJUST NERV/SENS SYSTEM DEVICE (Primary Dx) Social History Tobacco Use Types Packs/Day Years Used Date Smoking Tobacco: Never Assessed Comments Unknown Sex and Gender Information Value Date Recorded Sex Assigned at Not on file Legal Sex Female 3:09 AM AIRVEYOR OPERATOR Gender Identity Not on file Sexual Orientation Not on file documented as of this encounter Plan of Treatment Not on file documented as of this encounter Visit Diagnoses Diagnosis Fitting and adjustment of other devices related to nervous system and special senses- Primary documented in this encounter Care Teams Director Industrial Relations Relationship Specialty Start Date End Date Epi French MD [address] [place] [phone] PCP - General Family Practice 09/29/10 documented as of this encounter
--- OUTSIDE RECORDS SUMMARY | 2025-01-03 07:49 | XMS_ITS | Encounter Summary ---
Author Organization [facility] Address [address] [place] [address] Care Team Providers Care Room Clerk Name Role Phone Epi French MD Primary Care Provider [phone] Encounter Details Date Type Department Care Team (Latest Contact Info) Description 02/04/2004 Outpatient Historical [facility] [address] [place] [address] Ele Issa, PLUG ASSEMBLER [address] [facility] [address] [place] [address] REFLEX SYMPATH DYSTRPHY LOWER LIMB (Primary Dx) Social History Tobacco Use Types Packs/Day Years Used Date Smoking Tobacco: Never Assessed Comments Unknown Sex and Gender Information Value Date Recorded Sex Assigned at Not on file Legal Sex Female 3:09 AM COMPLAINT EVALUATION SUPERVISOR Gender Identity Not on file Sexual Orientation Not on file documented as of this encounter Plan of Treatment Not on file documented as of this encounter Visit Diagnoses Diagnosis 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
--- OUTSIDE RECORDS SUMMARY | 2025-01-03 07:49 | XMS_ITS | Encounter Summary ---
[email or web address] Address [address] [place] [address] Care Team Providers Care Currency Examiner Name Role Phone Epi French MD Primary Care Provider [phone] Encounter Details Date Type Department Care Team (Late st Contact Info) Description 03/11/[address] [facility] Pain Management Procedures [address] [place] [address] Cabrera Altamirano MD NO ADDRESS ON FILE FIT/ADJUST UNSPECIFIED DEVICE (Primary Dx) Social History Tobacco Use Types Packs/Day Years Used Date Smoking Tobacco: Never Assessed Comments Unknown Sex and Gender Information Value Date Recorded Sex Assigned at Not on file Legal Sex Female 3:09 AM [employer] INSPECTOR Gender Identity Not on file Sexual Orientation Not on file documented as of this encounter Plan of Treatment Not on file documented as of this encounter Visit Diagnoses Diagnosis Fitting and adjustment of unspecified device- Primary documented in this encounter Care Teams Currency Examiner Relationship Specialty Start Date End Date Epi French MD [address] [place] [id number] PCP - General Family Practice 09/29/10 documented as of this encounter
[2025-01-03 07:50] VITALS: BP 111/47; PULSE 64; RESP 18; TEMP 36.8; O2SAT 96; BMI 29.0
--- NOTE | 2025-01-03 08:00 | ED_ITS ---
HPI - General Adult 2 General: Chief complaint: Upper Respiratory Infection Stated complaint: SOB Coughing weakness Time Seen by Provider: 01/03/25 07:51 History of Present Illness: 79-year-old female presents to the [facility] room with cough shortness of breath generally feeling weak. Patient is concerned she may have pneumonia. She has not had a productive cough no hemoptysis denies fever symptoms begin 2 to 3 days ago. She has been exposed several of her grandchildren had viral respiratory symptoms. Associated symptoms: Reports dyspnea; Deny chest pain or rash Related Data Home Medications ?Medication ?Instructions ?Recorded ?Confirmed apixaban 2.5 mg tablet (Eliquis) 2.5 mg PO BID 5 01/01/25 amlodipine 10 mg tablet 10 mg PO DAILY PRN 10/16/24 01/01/25 Previous Rx's ?Medication ?Instructions ?Recorded nitroglycerin 0.4 mg sublingual See Rx Instructions .R oute 01/11/24 tablet .COMPLEX #25 tabs ferrous sulfate 325 mg (65 mg 325 mg PO .q48 3 months #45 tabs 07/03/24 iron) tablet (Feosol) cetirizine 10 mg tablet 10 mg PO DAILY PRN allergy s ymtoms 07/19/24 #90 tabs Ventolin HFA 90 mcg/actuation 2 puff inhalation Q4H FL N 08/06/24 aerosol inhaler (albuterol sulfate) shortness of breat h or wheezing #18 grams clopidogrel 75 mg tablet See Rx Instructions .Route 0 08/06/24 .COMPLEX #90 tabs metoprolol succinate 25 mg 12.5 mg (1/2 x 25 mg) PO BI D #60 09/10/24 tablet,extended release 24 hr tabs tiotropium bromide 2.5 2 puff inhalation DAILY #4 g esthela 10/16/24 mcg/actuation mist for inhalation (Spiriva Respimat) umeclidinium 62.5 mcg/actuation 1 inh inhalation DAILY #30 ea 10/18/24 blister powder for inhalation (Incruse Ellipta) pantoprazole 40 mg tablet,delayed 40 mg PO BID #180 ta bs 11/01/24 release levothyroxine 25 mcg tablet 25 mcg PO QAM #90 tabs albuterol sulfate 90 mcg/actuation 2 inh inhalation Q4 H PRN shortness 01/03/25 aerosol inhaler of breath or wheezing #18 gr ams methylprednisolone 4 mg tablets in See Rx Instructions PO .COMPLEX 01/03/25 a dose pack (Medrol (Gaudencio)) #21 ea Allergies Allergy/AdvReac Type Severity Reaction Status Date / Time adhesive tape Allergy Mild ALGY-Rash Verified 01/03/25 08:12 aspirin Allergy Unknown unknown Verified 01/03/25 08:12 Sulfa (Sulfonamide Allergy Unknown unknown Verified 01/03/25 08:12 Antibiotics) Review of Systems 2 Const: Denies: fever(s) or chills Card: Denies: chest pain Resp: Reports: dyspnea, non-productive cough, wheezing and chest congestion GI: Denies: abdominal pain : Denies: dysuria, urinary frequency or urinary urgency Musc: Denies: neck pain or back pain Skin/Breast: Denies: rash PFSH ED 2 PFSH: Medical History GERARDO (acute kidney injury) Acute kidney injury superimposed on chronic kidney disease Respiratory acidosis with metabolic acidosis Hypercapnic respiratory failure Septic shock Acute hypoxic on chronic hypercapnic respiratory failure Type 2 diabetes mellitus History of pulmonary embolism UTI (urinary tract infection) Iron deficiency anemia CHF (congestive heart failure) Mixed dyslipidemia NSTEMI (non-ST elevated myocardial infarction) Atrial fibrillation with slow ventricular response Moderate major depression Arthritis of both hands Coronary artery disease Leukocytosis Anemia Chest pain AVM (arteriovenous malformation) HTN (hypertension) Dark stools Pulmonary embolism COPD (chronic obstructive pulmonary disease) Hiatal hernia Diverticulosis Colon polyps Presence of intrathecal pump Bilateral carotid artery stenosis Hyperlipidemia associated with type 2 diabetes mellitus Ventricular hypertrophy Surgical History H/O: hysterectomy H/O cataract extraction Hx of appendectomy Family History Mother CAD (coronary artery disease), Onset Age: 70 Cancer Dementia Sister Diabetes Denies family history of Clotting disorder Chronic kidney disease (CKD) Suicide Anesthesia complication Bleeding disorder Lung disease Stroke Social History Smoking and tobacco/nicotine status: former use of tobacco/nicotine Quit status (tobacco/nicotine): has quit using Year quit tobacco: 2022 Former quit date comment: 1.5 ppd X 50 Alcohol intake: never Substance/Drug Use: never Female Reproductive History: Spontaneous abortions: No Physical Exam 2 Const: GENERAL APPEARANCE: cooperative ORIENTATION/CONSCIOUSNESS: Yes awake, Yes oriented to person, Yes oriented to place and Yes oriented to time HENMT: COMMON NORMALS: normocephalic, atraumatic and hearing grossly normal bilaterally HEAD & SCALP: normocephalic and atraumatic Resp: COMMON NORMALS: normal respiratory effort, No retractions and No use of accessory muscles AUSCULTATION: wheezes Cardio: COMMON NORMALS: regular rate, regular rhythm and No murmurs present (Cardio) RATE: regular rate RHYTHM: regular rhythm GI: COMMON NORMALS: Soft to palpation and No hepatosplenomegaly present A USCULTATION: Yes normoactive bowel sounds PALPATION: Yes Soft to palpation, No Tenderness to palpation present (GI), No Guarding due to palpation present (GI) and Yes No hepatosplenomegaly present Extremity: COMMON NORMALS: normal to inspection, capillary refill normal, no clubbing, cyanosis or edema, no calf tenderness and no pedal edema Neuro: SENSORIUM/ORIENTATION: Yes oriented to person, Yes oriented to place and Yes oriented to time Skin: COMMON NORMALS: no rashes or lesions noted GENERAL SKIN EXAM: no rashes or lesions noted Course 2 Vital Signs: Vital signs: Vital Signs Temperature 98.3 F 01/03/25 07:50 Pulse Rate 53 L 01/03/25 09:50 Respiratory Rate 18 01/03/25 09:34 Blood Pressure 115/51 01/03/25 09:50 Pulse Oximetry 95 01/03/25 09:50 Oxygen Delivery Me thod Nasal Cannula 01/03/25 09:34 Oxygen Flow Rate 2 01/03/25 09:34 MDM - General Adult Medical Decision Making Chest x-ray normal no leukocytosis flu COVID RSV negative. Treated for COPD exacerbation steroid taper albuterol nebs as needed follow-up with primary care as needed Medical Records I reviewed the patient's medical records. Lab Data I reviewed the patient's lab results. 01/03/25 08:34 01/03/25 08:34 Radiology Impressions Chest X-Ray 01/03/25 07:47 IMPRESSION: 1. No acute cardiopulmonary finding. 2. Mild cardiac enlargement unchanged. Laboratory Results WBC 8.88 10^3/uL (3.29-11.43) 01/03/25 08:34 RBC 4.06 10^6/uL (3.85-5.65) 01/03/25 08:34 Hgb 11.60 g/dL (11.27-16.99) 01/03/25 08:34 Hct 36.1 % (36-47) 01/03/25 08:34 MCV 88.9 fl (85-98) 01/03/25 08:34 MCH 28.6 pg (27-33) 01/03/25 08:34 MCHC 32.1 g/dL (30-55) 01/03/25 08:34 RDW 13.2 % (12.1-15.1) 01/03/25 08:34 Plt Count 247 10^3/cmm (157-399) 01/03/25 08:34 MPV 10.9 fL (7.4-10.4) H 01/03/25 08:34 Neut % (Auto) 73.0 % 01/03/25 08:34 Lymph % (Auto) 12.8 % 01/03/25 08:34 [place] % (Auto) 11.4 % 01/03/25 08:34 Eos % (Auto) 1.7 % 01/03/25 08:34 Baso % (Auto) 0.8 % 01/03/25 08:34 Neut # (Auto) 6.48 10^3/uL (1.8-7.7) 01/03/25 08:34 Lymph # (Auto) 1.1 10^3/uL (0.8-4.8) 01/03/25 08:34 [place] # (Auto) 1.0 10^3/uL (0.2-0.9) H 01/03/25 08:34 Eos # (Auto) 0.2 10^3/uL (0.0-0.8) 01/03/25 08:34 Baso # (Auto) 0.1 10^3/uL (0.0-0.1) 01/03/25 08:34 Nucleated RBC % (auto) 0 % 01/03/25 08:34 Nucleated RBCs # 0.0 /100WBC 01/03/25 08:34 Sodium 139 mmol/L (136-145) 01/03/25 08:34 Potassium 3.9 mmol/L (3.5-5.1) 01/03/25 08:34 Chloride 100 mmol/L (98-107) 01/03/25 08:34 Carbon Dioxide 25 mmol/L (22-29) 01/03/25 08:34 Anion Gap 17.9 (5-19) 01/03/25 08:34 BUN 17 mg/dL (8-23) 01/03/25 08:34 Creatinine 1.4 mg/dL (0.5-0.9) H 01/03/25 08:34 GFR Calculation Not Reportable 01/03/25 08:34 Glucose 106 mg/dL (65-115) 01/03/25 08:34 Calculated Osmolality 290 mOsm/kg (285-295) 01/03/25 08:34 Calcium 9.5 mg/dL (8.5-10.5) 01/03/25 08:34 Total Bilirubin 0.6 mg/dL (0.15-1.2) 01/03/25 08:34 AST 9 U/L (0-32) 01/03/25 08:34 ALT < 5 U/L (0-33) 01/03/25 08:34 Alkaline Phosphatase 88 U/L (35-105) 01/03/25 08:34 Total Protein 6.6 g/dL (6.6-8.7) 01/03/25 08:34 Albumin 4.1 g/dL (3.5-5.2) 01/03/25 08:34 Globulin 2.5 g/dL (1.3-4.6) 01/03/25 08:34 Influenza A (PCR) Negative (Negative) 01/03/25 08:05 Influenza Type B (PCR) Negative (Negative) 01/03/25 08:05 RSV (PCR) Negative (Negative) 01/03/25 08:05 SARS-CoV-2 (PCR) Negative (Negative) 01/03/25 08:05 All radiology interpretation(s) finalized by discharge Discharge Plan Discharge Patient Disposition: Home Clinical Impression: Viral infection, Acute exacerbation of chronic obstructive pulmonary disease Condition: Stable Prescriptions: New methylprednisolone [Medrol (Gaudencio)] 4 mg tablets,dose pack See Rx Instructions .ROUTE .COMPLEX Qty: 21 0RF Rx Instructions: orally per package directions albuterol sulfate 90 mcg/actuation HFA aerosol inhaler 2 inh INHALATION Q4H PRN (Reason: shortness of breath or wheezing) Qty: 18 0RF No Action ferrous sulfate [Feosol] 325 mg (65 mg iron) tablet 325 mg PO .q48 90 Days Qty: 45 1RF metoprolol succinate 25 mg tablet extended release 24 hr 12.5 mg PO BID Qty: 60 1RF amlodipine 10 mg tablet 10 mg PO DAILY PRN Spiriva Respimat 2.5 mcg/actuation mist 2 puff inhalation DAILY Qty: 4 3RF nitroglycerin 0.4 mg tablet, sublingual See Rx Instructions .ROUTE .COMPLEX Qty: 25 2RF Dose Instruction: DISSOLVE 1 TABLET UNDER THE TONGUE EVERY 5 MINUTES NEEDED FOR CHEST PAIN. DO NOT EXCEED A TOTAL OF 3 DOSES IN 15 MINUTES. Rx Instructions: DISSOLVE 1 TABLET UNDER THE TONGUE EVERY 5 MINUTES NEEDED FOR CHEST PAIN. DO NOT EXCEED A TOTAL OF 3 DOSES IN 15 MINUTES. cetirizine 10 mg tablet 10 mg PO DAILY PRN (Reason: allergy symtoms) Qty: 90 1RF clopidogrel 75 mg tablet See Rx Instructions .ROUTE .COMPLEX Qty: 90 3RF Dose Instruction: TAKE 1 TABLET BY MOUTH EVERY DAY Rx Instructions: TAKE 1 TABLET BY MOUTH EVERY DAY albuterol sulfate [Ventolin HFA] 90 mcg/actuation HFA aerosol inhaler 2 puff inhalation Q4H PRN (Reason: shortness of breath or wheezing) Qty: 18 5RF Incruse Ellipta 62.5 mcg/actuation blister with device 1 inh inhalation DAILY Qty: 30 3RF pantoprazole 40 mg tablet,delayed release (DR/EC) 40 mg PO BID Qty: 180 0RF levothyroxine 25 mcg tablet 25 mcg PO QAM Qty: 90 1RF Eliquis 2.5 mg tablet 2.5 mg PO BID Discharge Orders: Discharge ED (Routine); Ordered 01/03/25 Ordered By: Solomon Sawant Referrals: Juan Carlos Sherman MD [Primary Care Provider, Family Practice] Discharge Diet: Usual diet Discharge Activity: Increase activity as tolerated Patient Instructions: Opioid Safety, Pain Management, Patient Portal & [place] Instructions Activity Restrictions/Additional Instructions: Thank you for choosing [facility] for your healthcare needs today. It is very important that you follow up as instructed or that you return to the Emergency Department should you have concerns or if your condition changes or worsens in any way. Emergency department visits are focused on emergent conditions, in some cases you may require further evaluation on an outpatient basis. You were seen in the emergency room with complaints of nonproductive cough. Chest x-ray and screening swab for flu COVID and RSV were negative. Suspect this is an exacerbation of your COPD from a viral infection we will put you on a short course of steroid use albuterol as needed follow-up with your primary care doctor return if change in symptoms (Please note that included in your discharge packet is information concerning opioid safety and pain management. This information is given to all patients were discharged from the ER regardless of their discharge diagnosis or the medicines they usually take or are prescribed.) Print Language: Bulgarian Coding Level of Care Code ED Ingot Supervisor for Veronica Perkins
[2025-01-03 08:51] LABS: Hematocrit 36.1 % (36-47); Hemoglobin 11.60 g/dL (11.27-16.99); Mean Corpuscular HGB Conc 32.1 g/dL (30-55); Mean Corpuscular Hemoglobin 28.6 pg (27-33); Mean Corpuscular Volume 88.9 fl (85-98); Nucleated Red Blood Cells % 0 %; Platelet Count 247 10^3/cmm (157-399); Red Blood Count 4.06 10^6/uL (3.85-5.65); White Blood Count 8.88 10^3/uL (3.29-11.43)
[2025-01-03 09:02] LABS: Respiratory Syncytial Virus Ce NEGATIVE (Negative); SARS-CoV-2 PCR NEGATIVE (Negative)
[2025-01-03 09:13] LABS: Alanine Aminotransferase < 5 U/L (0-33); Albumin Level 4.1 g/dL (3.5-5.2); Alkaline Phosphatase 88 U/L (35-105); Anion Gap 17.9 (5-19); Aspartate Amino Transferase 9 U/L (0-32); Blood Urea Nitrogen 17 mg/dL (8-23); Calcium 9.5 mg/dL (8.5-10.5); Carbon Dioxide 25 mmol/L (22-29); Chloride 100 mmol/L (98-107); Creatinine Clr Calc Pharmacy 30.4460; Globulin 2.5 g/dL (1.3-4.6); Glucose 106 mg/dL (65-115); Osmolality Calculated 290 mOsm/kg (285-295); Potassium 3.9 mmol/L (3.5-5.1); Sodium 139 mmol/L (136-145); Total Protein 6.6 g/dL (6.6-8.7)
[2025-01-03 09:34] VITALS: PULSE 54; RESP 18; O2SAT 94
[2025-01-03] MEDS: methylPREDNISolone sod succ 125 mg/2 mL INJ IVP (09:45)
[2025-01-03 09:50] VITALS: BP 115/51; PULSE 53; O2SAT 95
== END 2025-01-03 09:50 | disposition home or self-care (01) ==
PROVIDERS: Emergency Provider Family Medicine; PCP Family Medicine
DX: B34.9 Viral infection, unspecified (principal); J44.1 Chronic obstructive pulmonary disease with (acute) exacerbation; Z11.52 Encounter for screening for COVID-19; Z79.01 Long term (current) use of anticoagulants; Z79.02 Long term (current) use of antithrombotics/antiplatelets; Z87.891 Personal history of nicotine dependence; E78.5 Hyperlipidemia, unspecified; E11.9 Type 2 diabetes mellitus without complications; I25.10 Atherosclerotic heart disease of native coronary artery without angina pectoris; I10 Essential (primary) hypertension
CPT/HCPCS: 36415; 71045; 80053; 85025; 87637; 94640; 96374; 99284; J2919; J9999